=== PATIENT | female | born 1955 | race Caucasian/White ===

== ENCOUNTER → 2017-02-24 | Outpatient (CLI) | payer MEDICAID ==
[~2017-02-24] MED LIST: ACETAMINOPHEN &1 TA1 PO; ASPIRIN 325MG325 MG PO; CHEWABLE ASPIRI81 MG PO; CIPRO 500MG TA500 MG PO; CRESTOR10 MG PO; DICLOFENAC 50MG50 MG PO; DOXYCYCLINE100 M1 PO; FLAGYL 500MG.500 MG PO; FLAGYL500 MG PO; GABAPENTIN 600600 MG PO; ISOSORBIDE MONO30 MG PO; K-DUR20 MEQ PO; LASIX 20MG. TAB20 MG PO; LEVAQUIN500 MG PO; LEXAPRO 10 MG T10 MG PO; LISINOPRIL10 MG PO; MACROBID 100MG100 MG PO; MEDROL 4MG. DOSE4 MG PO; MEDROL DOSEPAK4 MG PO; METAMUCIL3.4 GM/DOS PO; METOCLOPRAMIDE10 MG PO; METOLAZONE 2.52.5 MG PO; METOPROLOL50 MG PO; NEURONTIN 100100 MG PO; NICODERM C21 MG/241 TD; NITROSTAT0.3 MG SL; OMNICEF 300 MG300 MG PO; PHENAZOPYRIDIN200 M3 PO; PHENERGAN 25MG.25 M1 PO; PREDNISONE20 MG PO; PRILOSEC20 M1 PO; Prilosec20 MG PO; RANITIDINE HCL150 MG PO; SIMVASTATIN20 MG PO; TRAMADOL 50MG T50 MG PO; TRAZODONE150 MG PO; WELLBUTRIN SR150 MG PO; XANAX 1MG TABLET1 MG PO; XANAX1 MG PO
[2017-02-24 15:50] LABS: AMPHETAMINES/METAMPHETAMINES NEGATIVE ng/mL (<1000)
== END ==
LOC: LAB 14:39
PROVIDERS: Anesthesiology
DX: Z79.899 Other long term (current) drug therapy (principal)
CPT/HCPCS: G0480

== ENCOUNTER 2017-08-16 22:08 | Observation (INO) | payer MEDICAID ==
[~2017-08-16] VITALS: Ht 165.1 cm; Wt 59.0 kg
[~2017-08-16 22:08] MED LIST changes: -DICLOFENAC 50MG50 MG PO; +OMEPRAZOLE40 MG PO; -PRILOSEC20 M1 PO; +VOLTAREN75 MG PO
[2017-08-16 22:10] VITALS: BP 157/96
--- NOTE | 2017-08-16 22:36 | Emergency Room Report ---
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 N Clinical Suspician of Infection? N Mental Status: 1 - Regular (Normal Baseline) Sepsis Risk:Low Sepsis Risk Have you (or family members/close friends) recently traveled outside the [place]? N If Yes, where/when: Have you had exposure to infectious disease within the past month? N TB? Other? Specify: Source patient, RN notes reviewed, family, old records Exam Limitations no limitations Comment wf with chest pain with known ht disease - pt with stent 2014 and has multiple risk factors and has progressive pain with act over the last few weeks Cardiac Chest Pain Chest pain indicative of cardiac Yes Timing/Duration 4-6 hours, changing over time Severity/Quality moderate, pressure Location epigastric Chest Pain Radiation no radiation Activities at Onset light activity Nitro Today/Relief 0.4 mg x 1, provided by ED, mild relief Aspirin Treatment Today 325 mg x 1, provided by ED Beta nadira treatment today no beta nadira taken Cardiac risk factors + cardiovascular disease, + family history, HTN controlled Prior Workup/Intervention stent(s) Timing/Duration this evening Severity moderate ALLERGIES Coded Allergies: No Known Allergies (05/28/16) Home Medications Active Scripts Potassium Chloride (K-Dur) 20 MEQ PO DAILY #30 TER Ref 1 Prov: 07/11/15 Reported Medications Gabapentin (Gabapentin 600MG) 600 MG PO TID DICLOFENAC SODIUM (Diclofenac 50MG) 75 MG PO BID Trazodone Hcl (Trazodone HCl) 150 MG PO QHS Nitroglycerin (Nitrostat) 0.3 MG SL [id number] PRN CHEST PAIN Metoprolol Tartrate (Metoprolol) 50 MG PO BID OMEPRAZOLE MAGNESIUM (Prilosec 20MG) 40 MG PO DAILY HYDROCODONE/ACETAMINOPHEN (Hydrocodon-Acetaminophn 10-325) 1 TAB PO QID Alprazolam (Xanax 1MG) 0.25 MG PO TID ASPIRIN (Aspirin 325MG) 325 MG PO DAILY Simvastatin 20 MG PO DAILY Isosorbide Mononitrate (Isosorbide Mononitrate ER) 30 MG PO DAILY Ranitidine Hcl (Ranitidine 150MG) 300 MG PO QHS Bupropion HCl (WELLBUTRIN SR 150MG (generic) TAB) 150 MG PO DAILY Escitalopram Oxalate (Lexapro 10MG) 10 MG PO QHS History Medical History General CAD? Yes Angina: Yes [place]: Yes Hypertension? Yes Hyperlipidemia? Yes CHF? Yes DVT? No PE? No COPD? Yes Asthma? No Anemia? No GERD? Yes Gastric ulcers? No GI Bleed? No Hernia? Yes Thyroid Problems? No Hypothyroidism? No CVA? No Seizures? No Diabetes? No Insulin Dependent: No Insulin Pump: No Home FSBS? No Renal Insuffiency? Yes End Stage Renal Disease? No UTI? Yes Stones? No BPH? No GB Disease: Yes Nephritic Syndrome? No Asplenia? No Hepatitis? No Sickle Cell Disease? No Arthritis? Yes Migraines? No Cataracts? No Glaucoma? No MRSA? No HIV? No TB? No Anxiety? Yes Depression? Yes Cancer? Yes Site: UTERINE More? Yes Additional hx: HEART MURMUR,IRREGULAR HEART BEAT Immunization Hx DT/Tetanus 5-10 Years Ago Flu Refused Pneumonia Received In Past Surgical Hx Previous Surgery?Y PARTIAL HYSTERECTOMY POLYPS REMOVED (COLON) REMOVED STOMACH LESIONS? RT KNEE ARTHROSCOPY NIESHA TRIGGER FINGER RELEAS CHOLECYSTECTOMY SCREWS & PLATE IN NECK COLONOSCOPY-W [id number] LEFT CAROTID ARTERY RIGHT CAROTID ARTERY CATH W/HEART [id number] Family History Family Hx Diabetes Yes CAD Yes Hypertension Yes Hyperlipidemia Yes Cancer Yes TB Yes Social History Smoking Hx Smoker: Current Some Day Smoker Tobacco: Yes Type Cigarettes Packs/day < 1 Pack Alcohol Alcohol: No Drugs none Review of Systems All Other Systems Reviewed and Negative Constitutional denies fever Eyes denies drainage ENT denies: ear discharge, epistaxis, throat pain. Respiratory see HPI, denies cough, shortness of breath, denies wheezing Cardiovascular see HPI, chest pain, denies palpitations, denies syncope Gastrointestinal see HPI, denies abdominal pain, denies diarrhea, nausea, denies vomiting Genitourinary denies: dysuria, frequency, hesitancy, hematuria. Musculoskeletal denies back pain, denies joint pain, denies joint swelling, denies neck pain Skin denies rash Psychiatric/Neurological denies headache, denies seizure Physical Exam Vital Signs Vital Signs Date Time Temp Pulse Resp B/P Pulse O2 O2 Flow FiO2 Ox Delivery Rate 08/160 62 20 129/79 96 3 08/16 2259 63 18 143/81 92 3 08/16 2256 20 08/160 98.1 67 20 157/96 93 - WBC >12,000 or <4,000 or 10% bands? 2 or more SIRS Criteria Met? B/P:129/79 MAP:116 Creatinine >2.0? UA output<0.5ml/kg/hr for 2 hrs? Platelet count >100,000? Lactate >2.0mmol/1? INR >1.2 or PTT > than 60 sec? Evidence of Organ Dysfunction? Provider documented clinical suspician of infection? N Sepsis Criteria Count: 1 Sepsis Risk: Low Sepsis Risk General Appearance no apparent distress Eye Exam - bilateral eye PERRL, bilateral eye EOMI Ear, Nose, Throat normal ENT inspection Neck supple Respiratory Status No: respiratory distress. Lung Sounds bilateral: lungs clear. 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 No Results/Orders Laboratory Tests 08/16/170: Sodium 141, Potassium 4.1, Chloride 105, Carbon Dioxide 32, BUN 22 H, Creatinine 0.9, Estimated Creat Clear 60, Estimated GFR (MDRD) 63, Glucose 86, Calcium 8.9, Total Bilirubin 0.3, AST 4 L, ALT 21, Alkaline Phosphatase 92, Creatine Kinase 109, CK-MB (CK-2) Rel Index 0.5, CK and CKMB Interp < 0.5, Troponin I < 0.02, Total Protein 7.5, Albumin 4.1, Globulin 3.4 H, Albumin/ Globulin Ratio 1.2, WBC 9.8, RBC 4.24, Hgb 14.2, Hct 43.9, MCV 103.5 H, RDW 13.1, Plt Count 285, MPV 8.9, Gran % 56.1, Gran # 5.5, Lymphocytes % 34.4, Monocytes % 6.6, Eosinophils % 2.2, Basophils % 0.7, Lymphocytes # 3.4, Monocytes # 0.6, Eosinophils # 0.2, Basophils # 0.1, PUBS MCHC 32.3, MCH 33.4 H Current Medication Orders Sig/Mandi Start time Last Medication Dose Route Stop Time Status Admin Nitroglycerin 1 IN ONCE ONE 08/16 2330 AC TP 08/16 2331 Nitroglycerin 0 .STK-MED ONE 08/16 231 DC .ROUTE Aspirin 325 MG ONCE ONE 08/16 2300 DC 08/16 PO 08/16 Nitroglycerin 0.4 MG ONCE ONE 08/16 2300 DC 08/16 SL 08/16 Nitroglycerin 0 .STK-MED ONE 08/16 2254 DC SL Aspirin 0 .STK-MED ONE 08/16 2253 DC .ROUTE Sodium Chloride 10 ML PRN PRN 08/16 2215 AC IV 08/17 2214 Orders Procedure Date/time Status Decision to admit 08/16 2314 Active ELECTROCARDIOGRAM REQUEST 08/16 2214 Active CHEST(2 VIEWS-NOT PORTABLE) 08/16 2214 Active IV SALINE LOCK 08/16 2214 Active COMPLETE METABOLIC PANEL 08/16 2214 Complete CBC WITH AUTO DIFF 08/16 2214 Complete CARDIAC ENZYMES 08/16 2214 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 ST/Twave chgs XRAY/CT/US XRAY/CT/US XRAY chest XR interpretation by reviewed by me Xray Results normal/NAD DEMETRI Score for N-Stemi/Angina DEMETRI N-STEMI SCORE DEMETRI N-STEMI SCORE Response Value Age of patient Less than 65 yrs 0 Number of risk factors for CAD Presence of 3 or more 1 Prior coronary artery stenosis (seen in angiography) Less than 50% 0 ST-Segment deviation on ECG (>1 min) Absent 0 Prior aspirin intake ASA intake in last 7 days 1 Severe anginal chest pain 2 or more episodes/24hr 1 Elevated cardiac markers(CK-MB or troponin) Absent 0 Total 3 Risk Stratification 3-4= Medium Risk Patients Departure Departure Time of Disposition 2316 Disposition Still a Patient Clinical Impression Primary Impression: Chest pain Qualifiers: Chest pain type: precordial pain Qualified Code: R07.2 - Precordial pain Condition STABLE Referrals Kendrick Vera MD (Family) discussed with dr toro and jerzy ED Critical Care Critical Care No at [id number]
--- NOTE | 2017-08-16 22:36 | Emergency Room Report ---
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 N Clinical Suspician of Infection? N Mental Status: 1 - Regular (Normal Baseline) Sepsis Risk:Low Sepsis Risk Have you (or family members/close friends) recently traveled outside the [place]? N If Yes, where/when: Have you had exposure to infectious disease within the past month? N TB? Other? Specify: Source patient, RN notes reviewed, family, old records Exam Limitations no limitations Comment wf with chest pain with known ht disease - pt with stent 2014 and has multiple risk factors and has progressive pain with act over the last few weeks Cardiac Chest Pain Chest pain indicative of cardiac Yes Timing/Duration 4-6 hours, changing over time Severity/Quality moderate, pressure Location epigastric Chest Pain Radiation no radiation Activities at Onset light activity Nitro Today/Relief 0.4 mg x 1, provided by ED, mild relief Aspirin Treatment Today 325 mg x 1, provided by ED Beta nadira treatment today no beta nadira taken Cardiac risk factors + cardiovascular disease, + family history, HTN controlled Prior Workup/Intervention stent(s) Timing/Duration this evening Severity moderate ALLERGIES Coded Allergies: No Known Allergies (05/28/16) Home Medications Active Scripts Potassium Chloride (K-Dur) 20 MEQ PO DAILY #30 TER Ref 1 Prov: 07/11/15 Reported Medications Gabapentin (Gabapentin 600MG) 600 MG PO TID DICLOFENAC SODIUM (Diclofenac 50MG) 75 MG PO BID Trazodone Hcl (Trazodone HCl) 150 MG PO QHS Nitroglycerin (Nitrostat) 0.3 MG SL [id number] PRN CHEST PAIN Metoprolol Tartrate (Metoprolol) 50 MG PO BID OMEPRAZOLE MAGNESIUM (Prilosec 20MG) 40 MG PO DAILY HYDROCODONE/ACETAMINOPHEN (Hydrocodon-Acetaminophn 10-325) 1 TAB PO QID Alprazolam (Xanax 1MG) 0.25 MG PO TID ASPIRIN (Aspirin 325MG) 325 MG PO DAILY Simvastatin 20 MG PO DAILY Isosorbide Mononitrate (Isosorbide Mononitrate ER) 30 MG PO DAILY Ranitidine Hcl (Ranitidine 150MG) 300 MG PO QHS Bupropion HCl (WELLBUTRIN SR 150MG (generic) TAB) 150 MG PO DAILY Escitalopram Oxalate (Lexapro 10MG) 10 MG PO QHS History Medical History General CAD? Yes Angina: Yes [place]: Yes Hypertension? Yes Hyperlipidemia? Yes CHF? Yes DVT? No PE? No COPD? Yes Asthma? No Anemia? No GERD? Yes Gastric ulcers? No GI Bleed? No Hernia? Yes Thyroid Problems? No Hypothyroidism? No CVA? No Seizures? No Diabetes? No Insulin Dependent: No Insulin Pump: No Home FSBS? No Renal Insuffiency? Yes End Stage Renal Disease? No UTI? Yes Stones? No BPH? No GB Disease: Yes Nephritic Syndrome? No Asplenia? No Hepatitis? No Sickle Cell Disease? No Arthritis? Yes Migraines? No Cataracts? No Glaucoma? No MRSA? No HIV? No TB? No Anxiety? Yes Depression? Yes Cancer? Yes Site: UTERINE More? Yes Additional hx: HEART MURMUR,IRREGULAR HEART BEAT Immunization Hx DT/Tetanus 5-10 Years Ago Flu Refused Pneumonia Received In Past Surgical Hx Previous Surgery?Y PARTIAL HYSTERECTOMY POLYPS REMOVED (COLON) REMOVED STOMACH LESIONS? RT KNEE ARTHROSCOPY NIESHA TRIGGER FINGER RELEAS CHOLECYSTECTOMY SCREWS & PLATE IN NECK COLONOSCOPY-W [id number] LEFT CAROTID ARTERY RIGHT CAROTID ARTERY CATH W/HEART [id number] Family History Family Hx Diabetes Yes CAD Yes Hypertension Yes Hyperlipidemia Yes Cancer Yes TB Yes Social History Smoking Hx Smoker: Current Some Day Smoker Tobacco: Yes Type Cigarettes Packs/day < 1 Pack Alcohol Alcohol: No Drugs none Review of Systems All Other Systems Reviewed and Negative Constitutional denies fever Eyes denies drainage ENT denies: ear discharge, epistaxis, throat pain. Respiratory see HPI, denies cough, shortness of breath, denies wheezing Cardiovascular see HPI, chest pain, denies palpitations, denies syncope Gastrointestinal see HPI, denies abdominal pain, denies diarrhea, nausea, denies vomiting Genitourinary denies: dysuria, frequency, hesitancy, hematuria. Musculoskeletal denies back pain, denies joint pain, denies joint swelling, denies neck pain Skin denies rash Psychiatric/Neurological denies headache, denies seizure Physical Exam Vital Signs Vital Signs Date Time Temp Pulse Resp B/P Pulse O2 O2 Flow FiO2 Ox Delivery Rate 08/160 62 20 129/79 96 3 08/16 2259 63 18 143/81 92 3 08/16 2256 20 08/160 98.1 67 20 157/96 93 - WBC >12,000 or <4,000 or 10% bands? 2 or more SIRS Criteria Met? B/P:129/79 MAP:116 Creatinine >2.0? UA output<0.5ml/kg/hr for 2 hrs? Platelet count >100,000? Lactate >2.0mmol/1? INR >1.2 or PTT > than 60 sec? Evidence of Organ Dysfunction? Provider documented clinical suspician of infection? N Sepsis Criteria Count: 1 Sepsis Risk: Low Sepsis Risk General Appearance no apparent distress Eye Exam - bilateral eye PERRL, bilateral eye EOMI Ear, Nose, Throat normal ENT inspection Neck supple Respiratory Status No: respiratory distress. Lung Sounds bilateral: lungs clear. 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 No Results/Orders Laboratory Tests 08/16/170: Sodium 141, Potassium 4.1, Chloride 105, Carbon Dioxide 32, BUN 22 H, Creatinine 0.9, Estimated Creat Clear 60, Estimated GFR (MDRD) 63, Glucose 86, Calcium 8.9, Total Bilirubin 0.3, AST 4 L, ALT 21, Alkaline Phosphatase 92, Creatine Kinase 109, CK-MB (CK-2) Rel Index 0.5, CK and CKMB Interp < 0.5, Troponin I < 0.02, Total Protein 7.5, Albumin 4.1, Globulin 3.4 H, Albumin/ Globulin Ratio 1.2, WBC 9.8, RBC 4.24, Hgb 14.2, Hct 43.9, MCV 103.5 H, RDW 13.1, Plt Count 285, MPV 8.9, Gran % 56.1, Gran # 5.5, Lymphocytes % 34.4, Monocytes % 6.6, Eosinophils % 2.2, Basophils % 0.7, Lymphocytes # 3.4, Monocytes # 0.6, Eosinophils # 0.2, Basophils # 0.1, PUBS MCHC 32.3, MCH 33.4 H Current Medication Orders Sig/Mandi Start time Last Medication Dose Route Stop Time Status Admin Nitroglycerin 1 IN ONCE ONE 08/16 2330 AC TP 08/16 2331 Nitroglycerin 0 .STK-MED ONE 08/16 231 DC .ROUTE Aspirin 325 MG ONCE ONE 08/16 2300 DC 08/16 PO 08/16 Nitroglycerin 0.4 MG ONCE ONE 08/16 2300 DC 08/16 SL 08/16 Nitroglycerin 0 .STK-MED ONE 08/16 2254 DC SL Aspirin 0 .STK-MED ONE 08/16 2253 DC .ROUTE Sodium Chloride 10 ML PRN PRN 08/16 2215 AC IV 08/17 2214 Orders Procedure Date/time Status Decision to admit 08/16 2314 Active ELECTROCARDIOGRAM REQUEST 08/16 2214 Active CHEST(2 VIEWS-NOT PORTABLE) 08/16 2214 Active IV SALINE LOCK 08/16 2214 Active COMPLETE METABOLIC PANEL 08/16 2214 Complete CBC WITH AUTO DIFF 08/16 2214 Complete CARDIAC ENZYMES 08/16 2214 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 ST/Twave chgs XRAY/CT/US XRAY/CT/US XRAY chest XR interpretation by reviewed by me Xray Results normal/NAD DEMETRI Score for N-Stemi/Angina DEMETRI N-STEMI SCORE DEMETRI N-STEMI SCORE Response Value Age of patient Less than 65 yrs 0 Number of risk factors for CAD Presence of 3 or more 1 Prior coronary artery stenosis (seen in angiography) Less than 50% 0 ST-Segment deviation on ECG (>1 min) Absent 0 Prior aspirin intake ASA intake in last 7 days 1 Severe anginal chest pain 2 or more episodes/24hr 1 Elevated cardiac markers(CK-MB or troponin) Absent 0 Total 3 Risk Stratification 3-4= Medium Risk Patients Departure Departure Time of Disposition 2316 Disposition Still a Patient Clinical Impression Primary Impression: Chest pain Qualifiers: Chest pain type: precordial pain Qualified Code: R07.2 - Precordial pain Condition STABLE Referrals Kendrick Vera MD (Family) discussed with dr toro and jerzy ED Critical Care Critical Care No at [id number]
[2017-08-16 22:44] LABS: HEMOGLOBIN 14.2 g/dL (12.2-16.2); LYMPH # 3.4 K/mm3 (0.7-4.5); LYMPH % 34.4 % (10-50.0)
[2017-08-16 23:03] LABS: BUN 22 mg/dL (7-18)
[2017-08-16 23:04] LABS: GFR (ESTIMATED) 63 ML/MIN (59-)
[2017-08-17] VITALS (11 sets, daily range): BP systolic 120–174; BP diastolic 66–98
[2017-08-17 07:26] LABS: HEMOGLOBIN 12.9 g/dL (12.2-16.2); LYMPH # 2.5 K/mm3 (0.7-4.5); LYMPH % 32.1 % (10-50.0)
[2017-08-17 07:41] LABS: BUN 21 mg/dL (7-18)
[2017-08-17 07:44] LABS: GFR (ESTIMATED) 72 ML/MIN (59-)
--- NOTE | 2017-08-17 07:56 | HISTORY AND PHYSICAL REPORT ---
Demographics: Admit date: 08/26/17 Chief complaint: Chest pain PRIMARY DIAGNOSIS: CHEST PAIN Allergies: Coded Allergies: No Known Allergies (05/28/16) History of present illness: History of present illness: 62-year-old white female with multiple cardiac risk factors, including heavy smoking history, hyperlipidemia and hypertension, who presented to the emergency department yesterday evening with the sudden onset of anginal type pressure pain. This was unrelieved in the emergency department by nitroglycerin she was admitted to hospital for evaluation and further cardiac diagnostic testing. This morning she thinks that she's had some improvement overnight but noted that at 20 minutes till 7 this morning she had the onset of chest pain once again. He 's had no diaphoresis or dyspnea with rest. Past medical history: Family HX Diabetes Yes CAD Yes Hypertension Yes Hyperlipidemia Yes Cancer Yes TB Yes Immunization HX DT/Tetanus 5-10 Years Ago Flu Refused Pneumonia Received In Past TB Test in last year No General CAD? Yes Angina: Yes [place]: Yes Hypertension? Yes Hyperlipidemia? Yes CHF? Yes DVT? No PE? No COPD? Yes Asthma? No Anemia? No GERD? Yes Gastric ulcers? No GI Bleed? No Hernia? Yes Thyroid Problems? No Hypothyroidism? No CVA? No Seizures? No Diabetes? No Insulin Dependent: No Insulin Pump: No Home FSBS? No Renal Insuffiency? Yes UTI? Yes Stones? No BPH? No GB Disease: Yes Nephritic Syndrome? No Asplenia? No Hepatitis? No Sickle Cell Disease? No Arthritis? Yes Migraines? No Cataracts? No Glaucoma? No MRSA? No HIV? No TB? No Anxiety? Yes Depression? Yes Cancer? Yes Site: UTERINE More? Yes Additional hx: HEART MURMUR,IRREGULAR HEART BEAT Past Surgical HX Previous Surgery?Y PARTIAL HYSTERECTOMY POLYPS REMOVED (COLON) REMOVED STOMACH LESIONS? RT KNEE ARTHROSCOPY NIESHA TRIGGER FINGER RELEAS CHOLECYSTECTOMY SCREWS & PLATE IN NECK COLONOSCOPY-W [id number] LEFT CAROTID ARTERY RIGHT CAROTID ARTERY CATH W/HEART [id number] Current home meds: Active Scripts Potassium Chloride (K-Dur) 20 MEQ PO DAILY #30 TER Ref 1 Prov: 07/11/15 Reported Medications Gabapentin (Gabapentin 600MG) 600 MG PO TID OMEPRAZOLE MAGNESIUM (Prilosec 20MG) 20 MG PO DAILY Alprazolam (Xanax 1MG) 0.25 MG PO BID DICLOFENAC SODIUM (Diclofenac 50MG) 50 MG PO BID Trazodone Hcl (Trazodone HCl) 300 MG PO QHS Nitroglycerin (Nitrostat) 0.3 MG SL [id number] PRN CHEST PAIN Metoprolol Tartrate (Metoprolol) 50 MG PO BID ASPIRIN (Aspirin 325MG) 325 MG PO DAILY Simvastatin 20 MG PO DAILY Isosorbide Mononitrate (Isosorbide Mononitrate ER) 30 MG PO DAILY Ranitidine Hcl (Ranitidine 150MG) 300 MG PO QHS Bupropion HCl (WELLBUTRIN SR 150MG (generic) TAB) 150 MG PO DAILY Escitalopram Oxalate (Lexapro 10MG) 10 MG PO QHS Social Hx: Smoking HX Tobacco Yes Type Cigarettes Packs/day < 1 PACK Alcohol Alcohol: No Hx of Drug Use Drug Use? No Patien't marital status is Patient's support system is poor Comment: Multiple stressors and family. Patient with history of opiate dependence and benzodiazepine use. This has been weaned off because of multiple risk factors for drug diversion and overuse issues. Review of systems: Constitutional malaise, weakness. Respiratory No: no symptoms reported. Cardiovascular chest pain Gastrointestinal/Abdominal No no symptoms reported Genitourinary No: no symptoms reported. Musculoskeletal No: no symptoms reported. Neurological No: see HPI. Exam: Lab data for last 24 hours: Laboratory Tests 08/17/17 0704: Sodium 143, Potassium 3.7, Chloride 108 H, Carbon Dioxide 31, BUN 21 H, Creatinine 0.8, Estimated Creat Clear 67, Estimated GFR (MDRD) 72, Glucose 97, Calcium 8.4 L, Creatine Kinase 63, CK-MB (CK-2) Rel Index 0.8, CK and CKMB Interp < 0.5, Troponin I < 0.02, WBC 7.8, RBC 3.90 L, Hgb 12.9, Hct 40.9, MCV 104.9 H, RDW 13.2, Plt Count 255, MPV 8.3, Gran % 59.2, Gran # 4.6, Lymphocytes % 32.1, Monocytes % 5.9, Eosinophils % 1.9, Basophils % 1.0, Lymphocytes # 2.5, Monocytes # 0.5, Eosinophils # 0.2, Basophils # 0.1, PUBS MCHC 31.6 L, MCH 33.1 H 08/17/17 0305: Creatine Kinase 66, CK-MB (CK-2) Rel Index 0.8, CK and CKMB Interp < 0.5, Troponin I < 0.02 08/16/172229: Triglycerides 169, Cholesterol 136, LDL Cholesterol 65.2, VLDL Cholesterol 33.8, HDL Cholesterol 37.0 L 08/16/172229: Sodium 141, Potassium 4.1, Chloride 105, Carbon Dioxide 32, BUN 22 H, Creatinine 0.9, Estimated Creat Clear 60, Estimated GFR (MDRD) 63, Glucose 86, Calcium 8.9, Total Bilirubin 0.3, AST 4 L, ALT 21, Alkaline Phosphatase 92, Creatine Kinase 109, CK-MB (CK-2) Rel Index 0.5, CK and CKMB Interp < 0.5, Troponin I < 0.02, Total Protein 7.5, Albumin 4.1, Globulin 3.4 H, Albumin/ Globulin Ratio 1.2, WBC 9.8, RBC 4.24, Hgb 14.2, Hct 43.9, MCV 103.5 H, RDW 13.1, Plt Count 285, MPV 8.9, Gran % 56.1, Gran # 5.5, Lymphocytes % 34.4, Monocytes % 6.6, Eosinophils % 2.2, Basophils % 0.7, Lymphocytes # 3.4, Monocytes # 0.6, Eosinophils # 0.2, Basophils # 0.1, PUBS MCHC 32.3, MCH 33.4 H Admission vital signs: 1ST Vital Signs Result Date Time Pulse Ox 93 08/16 2210 B/P 157/96 08/16 2210 Temp 98.1 08/16 2210 Pulse 67 08/16 2210 Resp 20 08/16 2210 O2 Flow Rate 3 08/16 2259 O2 Delivery OXYGEN 08/17 45 Exam General appearance: active, awake Eyes: anicteric Neck: non-tender, no carotid bruit Cardiovascular: no JVD, no ectopics, normal sinus rhythm, PMI normal, no murmur Respiratory: aerating well, clear to auscultation ABD: soft Extremities: normal exam, no peripheral edema, warm Skin: intact 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 Chest pain Status Chronic Plan: Agree with admission. Enzymes so far are negative. Cardiology consult for risk stratification/further studies. at [phone]
--- NOTE | 2017-08-17 08:24 | PHARMACY CLINIC NOTE ---
Patient Demographics Patient Demographics Admission date: 08/17/17 Date: 08/17/17 Time: 0824 Allergies Coded Allergies: No Known Allergies (05/28/16) HEIGHT- FT: 5 IN: 5.00 [id number] VTE General Information Labs: Laboratory Tests 08/17 08/16 0704 2230 Hematology Hgb (12.2 - 16.2 g/dL) 12.9 14.2 Hct (37.0 - 47.0 %) 40.9 43.9 Plt Count (142 - 424 K/mm3) 255 285 Disclaimer The following section includes nursing documentation that has been pulled in for pharmacy review. Patient's VTE score: 7 Patient's VTE Risk: MOD RISK Clinical trial participant? No VTE prophylaxis [id number] VTE prophylaxis ordered? Yes Type of prophylaxis/treatment: CARINA at 0824
--- NOTE | 2017-08-17 08:26 | RADIOLOGY REPORT PS360 ---
CHEST(2 VIEWS-NOT PORTABLE) HISTORY: chest pain ORDERING PHYSICIAN: Gibson Maldonado MD PATIENT AGE: 62 years COMPARISON: 11/04/2016 FINDINGS: The cardiomediastinal silhouette and pulmonary vascularity are within normal limits. There are mild atelectatic changes in the left lung base. The lungs are otherwise clear. Surgical clips are present in the paratracheal region and there is a bone plate along the lower cervical spine. Chronic changes are present in the thoracic lumbar spine. IMPRESSION: Left lower lobe atelectasis with chronic changes.
--- NOTE | 2017-08-17 10:08 | RADIOLOGY REPORT PS360 ---
CARDIAC CATHETERIZATION DATE OF CATHETERIZATION:08/17/2017 9:52 AM PROCEDURES: 1. Left heart catheterization 2. Left ventriculogram 3. Selective coronary angiogram INDICATION FOR TEST: 1. Numerous risk factors for coronary artery disease 2. Unstable angina Informed consent was obtained prior to the procedure. COMPLICATIONS: None ESTIMATED BLOOD LOSS: Less than 10 ml. TECHNIQUE: One percent lidocaine was used to anesthetize the right groin. The right femoral artery was accessed via the Seldinger technique. A 4-Upper Sorbian sheath was placed in the right femoral artery. The JL-4 and JR-4 catheter was also used to perform left heart catheterization and left ventriculography. At the end of the procedure the patient was transferred to the post-op holding area in stable condition for arterial sheath removal. ANGIOGRAPHIC RESULTS: 1. The left main artery normal 2. The left anterior descending artery has proximal 20% stenosis and mid vessel 30% nonflow limiting stenoses 3. The circumflex artery nondominant normal 4. The right coronary artery large dominant and has a long mid vessel to distal 40% stenosis 5. The KO ventriculogram reveals normal 65% 6. The left ventricular end-diastolic pressure 10 mmHg IMPRESSION: 1. Mild LAD disease and moderate dominant right disease 2. Normal ejection fraction 3. Normal left ventricular end-diastolic pressure PLAN: 1. Risk factor modification 2. Long-acting nitrates for possible endothelial dysfunction 3. LDL less than 55 4. Baby aspirin daily 5. Avoidance of tobacco products
[2017-08-17] MEDS ORDERED: VENTOLIN H0.09 MG/AC IH (13:34)
[2017-08-17] MEDS ORDERED: ACETAMINOPHEN500 M3 PO (13:35)
[2017-08-17] MEDS ORDERED: LOSARTAN POTASS25 MG PO (13:37)
--- NOTE | 2017-08-17 13:50 | DISCHARGE SUMMARY STANDARD ---
Demographics Admit date: 08/26/17 Discharge date: 08/17/17 History of present illness History of present illness 62-year-old white female with multiple cardiac risk factors, including heavy smoking history, hyperlipidemia and hypertension, who presented to the emergency department yesterday evening with the sudden onset of anginal type pressure pain. This was unrelieved in the emergency department by nitroglycerin she was admitted to hospital for evaluation and further cardiac diagnostic testing. This morning she thinks that she's had some improvement overnight but noted that at 20 minutes till 7 this morning she had the onset of chest pain once again. He 's had no diaphoresis or dyspnea with rest. Hospital Course Hospital Course: Patient was admitted, ruled out for myocardial infarction. Taken for left heart catheter because of significant risk factors and unstable angina pattern. This revealed no evidence of stent double lesions but diffuse coronary disease and possible endothelial dysfunction. She tolerated the procedure well. She'll be discharged home today on long-acting nitrates, continue aspirin therapy, strongly recommended to stop smoking. Discharge diagnoses Problem List 1. Chest pain Status Chronic Medications Medications: Discharge meds are as noted. Follow up Follow up in office in: 7 DAYS with: Angel Cote MD at 1350
[2017-08-17] MEDS ORDERED: IMDUR 30MG. TAB30 MG PO (13:51)
--- OUTSIDE RECORDS SUMMARY | 2017-08-21 23:31 | External Medical Summary Rpt | CCD ---
Author Author , JARROD Organization JARROD Address Unknown Phone [email or web address] Care Team Providers Care Process Developer Name Role Phone CAMERON ARIELLE, CAMERON Unavailable Unavailable ARIELLE ANITA LEE MD, PSC, Unavailable Unavailable ANITA LEE MD, PSC ADIS JR LA, Unavailable Unavailable ADIS JR LA ASLAM AZH, ASLAM AZH Unavailable Unavailable BEINEKE, BEINEKE Unavailable Unavailable BEINEKE FAHEEM, BEINEKE Unavailable Unavailable FAHEEM BESSON, BESSON Unavailable Unavailable BESSON ANN, BESSON Unavailable Unavailable ANN BESSON ANN, BESSON Unavailable Unavailable ANN ATWOOD, ATWOOD Unavailable Unavailable ATWOOD ALL, ATWOOD ALL Unavailable Unavailable SANTHOSH GIL, Unavailable Unavailable SANTHOSH GIL BROSTER THO, BROSTER Unavailable Unavailable THO BUX, BUX Unavailable Unavailable BUX ANJ, BUX ANJ Unavailable Unavailable Ten ALANIS MD Unavailable Unavailable PSC, Ten ALANIS MD PSC NATHANIEL LEO, NATHANIEL Unavailable Unavailable LEO [facility], Unavailable Unavailable [facility] Unavailable INC, [facility] Unavailable Unavailable ORTHOP[facility]EDIC, [facility] Unavailable [facility]available [facility], [facility] & Unavailable Unavailable DUBILIER, [facility] MIN SANDERS, Unavailable Unavailable MIN SANDERS, Unavailable Unavailable LAILA SOLO, Unavailable Unavailable LAILA FLOWERS COLEMAN T Unavailable Unavailable WYATT CHACKO Unavailable Unavailable [facility] Unavailable Unavailable ASSOCIATE, [facility]OCIATE [facility] Unavailable Unavailable LA, [facility] Unavailable Unavailable [facility], [facility] Unavailable Unavailable THE [facility], [facility] ANESTH OF [facility] COOK, COOK Unavailable Unavailable EUGENIO LA, Unavailable Unavailable EUGENIO LA EUGENIO LA, Unavailable Unavailable EUGENIO LA EUGENIO, TAO, Unavailable Unavailable EUGENIO, TAO CORINA RAIMUNDO, CORINA Unavailable Unavailable RAIMUNDO MANDUJANO MIS, MANDUJANO MIS Unavailable Unavailable ALBERT OVIDIO, ALBERT OVIDIO Unavailable Unavailable DUFF, DUFF Unavailable Unavailable [facility] [place] [place], [facility] [place] [facility] [place] [facility] FALLUJI ROM, FALLUJI Unavailable Unavailable ROM FAUGHN LUEVANO, FAUGHN Unavailable Unavailable LUEVANO ELIZABETH AUDRA, Unavailable Unavailable ELIZABETH AUDRA ELIZABETH AUDRA, Unavailable Unavailable ELIZABETH AUDRA BAEN CHR, BEAN CHR Unavailable Unavailable DENISSE HENRRY, DENISSE Unavailable Unavailable HENRRY DENISSE, SHANNAN S, Unavailable Unavailable SHANNAN MALDONADO S [facility], Unavailable Unavailable [facility] Unavailable Unavailable [facility], [facility]available Unavailable [facility], [facility] Un[facility] Un[facility], [facility] Un[facility]available [facility] P, [facility] NESSA, LUDIN, NESSA, Unavailable Unavailable [facility], Unavailable Unavailable [facility] LOZADA TRA, LOZADA TRA Unavailable Unavailable IMAM MOH, IMAM MOH Unavailable Unavailable VINCENT THOMAS, VINCENT Unavailable Unavailable THOMAS MONTANO SHANNON, MONTANO Unavailable Unavailable SHANNON MONTANO SHANNON, MONTANO Unavailable Unavailable SHANNON MEL FAUSTO, MEL Unavailable Unavailable FAUSTO SALGADO, SALGADO Unavailable Unavailable STEPHIE JOSS, STEPHIE JOSS Unavailable Unavailable [facility], [facility] Unavailable Unavailable MEDICAL G, [facility] TOSHIA THO, TOSHIA THO Unavailable Unavailable [facility] Unavailable Unavailable [facility], [facility] LATTERMANN CHR, Unavailable Unavailable LATTERMANN CHR JUSTICE ANN, Unavailable Unavailable JUSTICE ANN JUSTICE ANN, Unavailable Unavailable JUSTICE ANN VERGARA, VERGARA Unavailable Unavailable VERGARA, VERGARA Unavailable Unavailable VERGARA TU, VERGARA Unavailable Unavailable TU VERGARA TU, VERGARA Unavailable Unavailable TU [facility] Unavailable Unavailable SPECIAL[facility],, [facility], [facility] Unavailable Unavailable [facility], [facility] DOUGHERTY ALEXUS, DOUGHERTY Unavailable Unavailable ALEXUS SHAMIKA HERNANDEZ MD Unavailable Unavailable BUX MD TERRANCE, KIRA D, TERRANCE, Unavailable Unavailable KIRA Russell ADRIEL HAM, ADRIEL HAM Unavailable Unavailable ADRIEL HAM, ADRIEL HAM Unavailable Unavailable [facility] Unavailable Unavailable SERVICES, [facility] MCKEMIE JR SOLEDAD, Unavailable Unavailable MCKEMIE JR SOLEDAD MCKEMIE JR [facility], Unavailable Unavailable MCKEMIE JR SOLEDAD MCKEMIE JR, SHRUTHI Unavailable Unavailable F, MCKEMIE JR, SHRUTHI F MOOSE ROHAN, Unavailable Unavailable MOOSE ROHAN LORE MARK, LORE Unavailable Unavailable MARK LORE, HARMAN P, Unavailable Unavailable LORE, HARMAN P TEJEDA SOLEDAD, TEJEDA SOLEDAD Unavailable Unavailable O'RACHELLE CLAIRE, O'RACHELLE Unavailable Unavailable [facility] Un[facility] Unavailable Unavailable [facility], [facility] Unavailable Unavailable LAB, [facility] PETTEY JAM, PETTEY Unavailable Unavailable JAM PETTEY JAM, PETTEY Unavailable Unavailable JAM PICKLESIMER JR DARIUSZ, Unavailable Unavailable PICKLESIMER JR DARIUSZ PICKLESIMER JR DARIUSZ, Unavailable Unavailable PICKLESIMER JR DARIUSZ CHASE SUKH, CHASE Unavailable Unavailable SUKH CHOLO TOD, CHOLO TOD Unavailable Unavailable RUSCHMAN GREG, Unavailable Unavailable RUSCHMAN GREG [facility], Unavailable Unavailable [facility] LUDWIN, Unavailable Unavailable [facility] LUDWIN [facility] LUDWIN, Unavailable Unavailable [facility] SCIFRES ANG, SCIFRES Unavailable Unavailable ANG SCIFRES ANG, SCIFRES Unavailable Unavailable ANG ARMENDARIZ SOLEDAD, ARMENDARIZ Unavailable Unavailable [facility] ARMENDARIZ [facility], ARMENDARIZ Unavailable Unavailable [facility] OLIVER ADA, OLIVER ADA Unavailable Unavailable OLIVER CALLY, OLIVER CALLY Unavailable Unavailable [facility] Un[facility] Unavailable [facility], [facility] CHARIS ANAHI, CHARIS Unavailable Unavailable ANAHI CHARIS ANAHI, CHARIS Unavailable Unavailable ANAHI FRANCISCO JAVIER SYKES, Unavailable Unavailable FRANCISCO JAVIER SYKES [facility], Unavailable Unavailable [facility] Kendrick Lal MD, Unavailable Unavailable Kendrick Lal MD [facility], Unavailable Unavailable [facility] CHRIS MOURA, Unavailable Unavailable CHRIS MOURA, Unavailable Unavailable CHRIS Christianson MD, Unavailable Unavailable Monica Christianson MD [facility] # Unavailable Unavailable [id number], [facility] # [id number] KARLY CHRISTIAN, Unavailable Unavailable KARLY EUBANKS, TICO EUBANKS Unavailable Unavailable MERDAVID VALERIA, MERDAVID VALERIA Unavailable Unavailable Purpose Continuity of Care Document - 12-02-2007 through 2016 Problems Code Diagnosis DOS Provider Status M545 LOW BACK 04-27-2017 [facility] R300 DYSURIA 03-24-2017 [facility] [place] [id number] SPONDYLOSIS 03-03-2017 ANITA LEE, W/O , PSC MYELOPATH/R ADICULOPATH Y LUMB RGN 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 [id number] OTHER LONG 02-24-2017 [facility] TERM [facility] CURRENT INC DRUG THERAPY M5116 INTERVERTEB 02-06-2017 [facility] RAL DISC [facility] D/O INC W/RADICULOP ATHY LUMB RGN M5412 RADICULOPAT 01-19-2017 [facility] HY CERVICAL [facility] REGION INC M5416 RADICULOPAT 01-19-2017 [facility] HY LUMBAR [facility] REGION INC 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 01-19-2017 LILI STERLING MD, PSC SYNDROME NEC I10 ESSENTIAL 12-31-2016 [facility] PRIMARY [facility] HYPERTENSIO INC N I2510 ASHD [place] 12-31-2016 [facility] CORONARY [facility] ARTERY W/O INC ANGINA PECTORIS I739 PERIPHERAL 12-31-2016 [facility] VASCULAR [facility] DISEASE INC UNSPECIFIED M461 SACROILIITI 12-30-2016 [facility] S NOT [facility] ELSEWHERE INC CLASSIFIED I200 UNSTABLE 11-26-2016 [facility] ANGINA [facility] INC I209 ANGINA 11-26-2016 [facility] PECTORIS PHYSICIANS UNSPECIFIED GROUP 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 [facility] TRICUSPID SERV [facility] INSUFFICIEN CY I6523 OCCLUSION & 11-26-2016 [facility] STENOSIS [facility]ICAL BILATERAL IMAGING ASS CAROTID ARTERIES R0602 SHORTNESS 11-26-2016 [facility] OF BREATH [facility] INC Z955 PRESENCE OF 11-26-2016 [facility] CORONARY [facility] ANGIOPLASTY INC IMPLANT & GRAFT J449 CHRONIC 11-04-2016 [facility] OBSTRUCTIVE MEDICAL PULMONARY IMAGING ASS DISEASE UNS J9811 ATELECTASIS 11-04-2016 [facility] R05 COUGH 11-04-2016 [facility] R079 CHEST PAIN 11-04-2016 [facility] UNSPECIFIED [facility]ING ASS I129 HYPERTENSIV 11-03-[address] [facility] [address] [facility] W/STAGE 1-4 HOSPITAL P CKD OR UNS CKD N189 CHRONIC 11-03-2016 [facility] KIDNEY [facility] DISEASE INC UNSPECIFIED Z720 TOBACCO USE 11-03-2016 [facility] INC K5900 CONSTIPATIO 08-27-2016 [facility] N [facility] UNSPECIFIED INTERNAL MED N390 URINARY 08-27-2016 [facility] TRACT [facility] INFECTION INTERNAL SITE NOT MED SPECIFIED R102 PELVIC AND 08-27-2016 [facility] PERINEAL [facility] PAIN INTERNAL MED M33049 ENCOUNTER 08-27-2016 [facility] IT SOLUTIONS ARCHITECT EXAM LLC GENERAL RTN W/O ABNORMAL FIND Z124 ENCOUNTER 08-27-2016 [facility] OTHER [facility] SCREENING INTERNAL MALIG MED NEOPLASM CERVIX S52974 PERSONAL 08-27-2016 [facility] HISTORY OF VALLEY COLONIC INTERNAL POLYPS MED Z1231 ENCOUNTER 08-26-2016 [facility] SCREENING MEDICAL MAMMO MALIG IMAGING ASS NEOPLASM BREAST Z5181 ENCOUNTER 08-05-2016 [facility] THERAPEUTIC LA DRUG LEVEL MONITORING R51 HEADACHE 06-11-2016 [facility] INTERNAL MED K219 GASTRO-ESOP 05-29-2016 [facility] REFLUX [facility] DISEASE INC WITHOUT ESOPHAGITIS L723 SEBACEOUS 05-29-2016 [facility] CYST [facility] INC L729 FOLLICULAR 05-29-2016 [facility] CYST THE PHYSICIANS, SKIN & SUBQ PLLC TISSUE UNS H6123 IMPACTED 03-20-2016 [facility] CERUMEN PHYSICIANS BILATERAL GROUP H6523 CHRONIC 03-20-2016 [facility] SEROUS PHYSICIANS OTITIS GROUP MEDIA BILATERAL G8929 OTHER 03-17-2016 [facility] CHRONIC VAL[facility] PAIN INTERNAL MED R109 UNSPECIFIED 03-17-2016 [facility] ABDOMINAL [facility] PAIN INTERNAL MED G250 ESSENTIAL 01-23-2016 [facility] R202 PARESTHESIA 01-23-2016 [facility] OF SKIN NEUROLOGY K269 DUOD ULCR 11-12-2015 [facility] UNS AC SURGIAL OR CHRON ASSOCIATE W/O HEMORR OR PERF K3189 OTHER 11-12-2015 [facility] DISEASES OF SURGIAL STOMACH ASSOCIATE AND DUODENUM K319 DISEASE OF 11-12-2015 [facility] & DUODENUM DUBILIER UNSPECIFIED R0789 OTHER CHEST 11-12-2015 [facility] PA[facility] SURGIAL ASSOCIATE R1013 EPIGASTRIC 11-12-2015 [facility] R634 ABNORMAL 11-12-2015 [facility] WEIGHT LOSS SURGIAL ASSOCIATE R259 UNSPECIFIED 10-17-2015 [facility] ABNORMAL [facility] INVOLUNTARY INTERNAL MOVEMENTS MED G629 POLYNEUROPA 09-02-2015 [facility] THY [facility] UNSPECIFIED INC I130 HTN HEART & 09-02-2015 [facility] CKD W/HF & MEM HOSP CKD STAGE INC 1-4 OR UNS CKD 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 INC AND DIASTOLIC CHF M792 NEURALGIA 09-02-2015 [facility], NEURITIS PLLC UNSPECIFIED I31212 PAIN IN 09-02-2015 [place] LEFT LOWER MEDICAL LEG IMAGING ASS T45687 PAIN IN 09-02-2015 [facility] LEFT FOOT PHYSICIANS, PLLC G90355G UNSPECIFIED 09-02-2015 [place] INJURY MEDICAL LEFT FOOT IMAGING ASS INITIAL ENCOUNTER H524 PRESBYOPIA 08-09-2015 SCIFRES ANG 47327 INTESTINAL 07-20-2015 [facility] INFECTIONS VALLEY DUE INTERNAL CLOSTRIDIUM MED DIFFICILE 45576 DEHYDRATION 07-08-2015 [facility] INC 38136 CORONARY 07-08-2015 [facility] OSIS [place] INC CORONARY ARTERY 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 INTERNAL UNSPECIFIED MED 5589 OTH&UNSPEC 07-08-2015 [facility] NONINFECTIO VALLEY INTERNAL GASTROENTER MED ITIS&COLITI S 5990 URINARY 07-08-2015 [facility] TRACT [facility] INFECTION INTERNAL SITE NOT MED SPECIFIED V1089 PERSONAL 07-08-2015 [facility] HISTORY [facility] MALIGNANT INC NEOPLASM OTHER SITE V4509 OTHER 07-08-2015 [facility] SPECIFIED [facility] CARDIAC INC DEVICE IN SITU V4582 POSTSURG 07-08-2015 [facility] PERCUT [facility] TRANSLUMINA INC L COR ANGPLSTY STS 5849 ACUTE 07-07-2015 [facility], FAILURE PLLC UNSPECIFIED 49675 ABDOMINAL 07-07-2015 [place] PAIN, MEDICAL GENERALIZED IMAGING ASS 7823 EDEMA 07-02-2015 [facility] VAL[facility] INTERNAL MED 5180 PULMONARY 06-30-2015 [facility] COLLAPSE [facility]ICAL IM[facility]ING ASS 90459 SWELLING OF 06-30-2015 [facility] LIMB [facility]ICAL [facility] 5952 OTHER 06-19-2015 [facility] P 5989 UNSPECIFIED 06-19-2015 [facility] P 00305 URINARY 06-19-2015 [facility] P 69744 OTHER 06-19-2015 [facility] ABNORMALITY ANESTH OF OF THE BLUE URINATION 28295 OTHER 06-04-2015 [facility] CHRONIC VAL[facility] PAIN INTERNAL MED 4019 UNSPECIFIED 06-04-2015 [facility] ESSENTIAL VALLEY HYPERTENSIO INTERNAL N MED 84289 INSOMNIA 06-04-2015 [facility] UNSPECIFIED VALLEY INTERNAL MED 496 CHRONIC 05-29-[address] [facility] [address] [facility] OBSTRUCTION INTERNAL NEC MED 5609 UNSPECIFIED 05-29-2015 [facility] INTESTINAL VAL[facility] INTERNAL OBSTRUCTION MED 24514 DEGEN 2015 SHAMIKA LEE LUMBAR/LUMB OSACRAL INTERVERTEB RAL DISC 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 2015 SHAMIKA TERRY MD NEURITIS/RA DICULITIS UNSPEC 7873 FLATULENCE 2015 [place] ERUCTATION MEDICAL AND GAS IMAGING ASS PAIN 39037 ABDOMINAL 2015 [place] PAIN, MEDICAL UNSPECIFIED IMAGING ASS SITE 4168 OTHER 05-15-[address] [facility] CHRONIC HEALTH PULMONARY MEDICAL G HEART DISEASES 4240 MITRAL 05-15-[address] [facility] VALVE HEALTH DISORDERS MEDICAL G 4242 TRICUSPID 05-15-[address] [facility] VALVE HEALTH DISORDERS MEDICAL G SPEC NONRHEUMATI C 78072 CHEST PAIN 05-15-2015 [facility] 67047 OTHER CHEST 05-02-[address] [facility] PAIN HEALTH MEDICAL G V7281 PRE-OPERATI 05-02-[address] [facility] VE HEALTH CARDIOVASCU MEDICAL G LAR EXAMINATION 7936 NONSPEC ABN 04-25-2015 [facility] FINDNG RAD PHYSICIANS & OTH EXAM GROUP ABDOMINAL AREA 30144 OTHER 04-25-2015 [facility] ABNORMAL PHYSICIANS FINDING GROUP RADIOLOGICA L EXAM BREAST 5768 OTHER 04-10-2015 [place] SPECIFIED MEDICAL DISORDERS IMAGING ASS OF BILIARY TRACT 7242 LUMBAGO 03-29-2015 [facility] [place] [facility] 7906 OTHER 03-28-2015 [facility] ABNORMAL [facility] BLOOD INC CHEMISTRY 7881 DYSURIA 02-15-2015 [facility] 69722 ABDOMINAL 02-15-2015 [place] PAIN OTHER MEDICAL SPECIFIED IMAGING ASS SITE 7245 UNSPECIFIED 02-07-2015 [facility] BACKACHE [facility] INC V571 OTHER 02-07-2015 [facility] PHYSICAL [facility] THERAPY INC 96587 UNSPECIFIED 02-06-2015 [facility] RETENTION [facility] P 3384 CHRONIC 11-20-2014 [facility] PAIN VALLEY SYNDROME INTERNAL MED 39760 OSTEOARTHRO 11-20-2014 [facility] S UNSPEC VALLEY WHETHER INTERNAL GEN/LOC MED UNSPEC SITE 7213 LUMBOSACRAL 11-20-2014 [facility]ICAL SPONDYLOSIS IMAGING ASS WITHOUT MYELOPATHY V7612 OTHER 11-20-2014 [place] SCREENING MEDICAL MAMMOGRAM IMAGING ASS 3831 CHRONIC 09-21-2014 JAI TU MASTOIDITIS 4760 CHRONIC 08-28-2014 [facility] LARYNGITIS 36283 ESOPHAGEAL 08-28-2014 [facility] REFLUX 4408 ATHEROSCLER 08-11-2014 [facility] OSIS OF VALLEY OTHER INTERNAL SPECIFIED MED ARTERIES 12216 ABDOMINAL 08-11-2014 [facility] PAIN, VALLEY EPIGASTRIC INTERNAL MED 41485 HYPOXEMIA 07-30-2014 [facility] MEDICAL 58022 OCCLUSION&S 06-27-2014 WYATT DINERO CAROTID ART W/O MENTION INFARCT 23772 DIAB W/O 06-26-2014 [facility] COMP TYPE YUR II/UNS NOT STATED UNCNTRL 54270 ELEVATED 06-26-2014 CHRIS CARCINOEMBR YUR YONIC ANTIGEN 486 PNEUMONIA, 06-25-2014 MONTANO SHANNON ORGANISM UNSPECIFIED V7282 PRE-OPERATI 06-25-2014 MONTANO SHANNON VE RESPIRATORY EXAMINATION 4111 INTERMEDIAT 06-21-2014 [facility] E CORONARY HE[facility] SYNDROME SPECIALISTS , 85652 OSTEOARTHRO 06-12-2014 CHARIS ANAHI SIS UNSPEC WHETHER GEN/LOC LOWER LEG 84262 OSTEOARTHRO 06-12-2014 [place] [facility] SIS UNSPEC SERV WHETHER FOUNDATION GEN/LOC ANK&FOOT 95982 PAIN IN 06-12-2014 CHARIS ANAHI JOINT, LOWER LEG 38758 PAIN IN 05-10-2014 JUSTICE JOINT, ANN ANKLE AND FOOT 8248 UNSPECIFIED 05-10-2014 [facility] FRACTURE OF ANKLE 7177 CHONDROMALA 03-30-2014 PETTEY JAM CHAIM OF [place] 52659 PES 03-30-2014 PETTEY JAM ANSERINUS TENDINITIS OR BURSITIS 56355 OTHER 03-30-2014 PETTE[place] [address] 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 ADRIEL HAM LILI SYNDROME CERVICAL REGION 7234 BRACHIAL 03-23-2014 ADRIEL HAM NEURITIS OR RADICULITIS NOS 7226 DEGENERATIO 12-19-2013 ELIZABETH N AUDRA INTERVERTEB RAL DISC SITE UNSPEC 7292 UNSPECIFIED 12-19-2013 ELIZABETH NEURALGIA AUDRA NEURITIS AND RADICULITIS 30940 OTHER 10-31-2013 EUGENIO SPECIFIED [place] DISORDERS OF BREAST 2724 OTHER AND 10-12-2013 ELIZABETH UNSPECIFIED AUDRA HYPERLIPIDE LIN V7231 ROUTINE 10-12-2013 [facility] JR DARIUSZ AL EXAMINATION 37901 OCCL&STENOS 05-09-2013 EUGENIO MX&BILAT LA PRECERBRL ART W/O INFARCT 7295 PAIN IN 02-25-2013 BARB WALDR[facility] SOFT SOLEDAD TISSUES OF LIMB 5781 BLOOD IN 12-16-2012 [facility] STOOL [facility] INC 78507 DIVERTICULO 12-14-2012 BESSON ANN SIS OF COLON 0091 COLITIS 12-13-2012 [facility] ENTERIT&GAS LUDWIN TROENTERIT INF ORIGIN 2662 OTHER 10-25-2012 BARB WALDRON B-COMPLEX SOLEDAD DEFICIENCIE S 95034 ABDOMINAL 2012 [facility] PAIN RIGHT [facility] UPPER INC QUADRANT V8801 ACQUIRED 04-22-2012 [place] ABSENCE OF MEDICAL BOTH CERVIX IMAGING ASS AND UTERUS 8470 NECK SPRAIN 09-04-2011 [facility] AND STRAIN [facility]OS[facility] INC 2113 BENIGN 06-10-2011 C [facility] NEOPLASM OF ANNABELLE COLON PSC V7651 SPECIAL 05-29-2011 [facility] SCREENING [facility] HOS[facility] FOR INC MALIGNANT NEOPLASMS COLON 90921 UNSPECIFIED 05-22-2011 C TYLER ANNABELLE CONSTIPATIO PSC N 5693 HEMORRHAGE 05-22-2011 C TYLER OF RECTUM ANNABELLE AND ANUS PSC 5283 CELLULITIS 04-11-2011 [facility] AND ABSCESS VALLEY OF ORAL INTERNAL SOFT MED TISSUES 28171 OTHER ACUTE 10-11-2010 [facility] POSTOPERATI SERVICES VE PAIN 7820 DISTURBANCE 10-11-2010 [facility] OF SKIN EMERGENCY SENSATION SERVICES 25395 OTHER 10-11-2010 [facility] SPECIFIED [facility] COMPLICATIO INC NS NEC V5869 LONG-TERM 09-04-2010 [facility] (CURRENT) GNOSTICISM USE OF HOSP OTHER MEDICATIONS 4928 OTHER 08-12-2010 [facility] EMPHYSEMA [facility] INTERNAL MED 7862 COUGH 08-11-2010 [facility] 14334 OTHER 08-10-2010 [facility] DISEASES OF EMERGENCY NASAL SERVICES CAVITY AND SINUSES 7291 UNSPECIFIED 08-10-2010 [facility] MYALGIA [facility]Y AND SERVICES MYOSITIS 49429 FEVER 08-10-2010 [facility] UNSPECIFIED [facility]GENCY SERVICES 490 BRONCHITIS 07-31-2010 [facility] NOT VALLEY SPECIFIED INTERNAL ACUTE OR MED CHRONIC 4919 UNSPECIFIED 01-30-2010 [facility] CHRONIC [facility] BRONCHITIS INC 4660 ACUTE 12-18-2009 [facility] BRONCHITIS [facility] INC 7859 OTHER 12-18-2009 [facility] SYMPTOMS MEDICAL INVOLVING IMAGING CARDIOVASCU ASSOCIATES LAR SYSTEM 4619 ACUTE 08-25-2009 [facility] SINUSITIS, VALLEY UNSPECIFIED INTERNAL MED 72995 PRIMARY 04-16-2009 [place] [facility] LOCALIZED SERV OSTEOARTHRO FOUNDATIO SIS LOWER LEG 6929 CONTACT 11-22-2008 [facility] DERMATITIS& VALLEY OTHER INTERNAL ECZEMA DUE MED UNSPEC CAUSE 79065 OTHER 09-25-2008 [facility] ANXIETY [facility] INTERNAL MED 4279 UNSPECIFIED 09-25-2008 [facility] CARDIAC VAL[facility] DYSRHYTHMIA INTERNAL MED 07737 ABDOMINAL 09-06-2008 [place] [facility] PA[facility], SERV PERIUMBILIC FOUNDATIO 06968 ACUTE 07-02-2008 [facility] GASTRITIS [facility] WITHOUT INC MENTION OF HEMORRHAGE 14792 UNSPECIFIED 05-10-2008 [place] [facility] SERV ESOPHAGITIS FOUNDATIO 03702 ATROPHIC 05-10-2008 PATHOLOGY & GASTRITIS CYTOLOGY WITHOUT LAB MENTION OF HEMORRHAGE 18399 UNS 05-10-2008 [place] [facility] GASTRITIS&G SERV ASTRODUODIT FOUNDATIO IS W/O MENTION HEMORR 96949 DUODENITIS 05-10-2008 PATHOLOGY & WITHOUT CYTOLOGY MENTION OF LAB HEMORRHAGE 91187 EFFUSION OF 03-28-2008 TAO C LOWER LEG EUGENIO JOINT 2409 GOITER, 03-17-2008 [place] UNSPECIFIED [facility] IMAGING ASSOC[facility]ATES 2410 NONTOXIC 03-17-2008 [facility] UNINODULAR [facility]P GOITER INC 53101 DYSPHAGIA 03-17-2008 [facility] DUE TO MEM HOSP CEREBROVASC INC ULAR DISEASE 7179 UNSPECIFIED 03-14-2008 [facility] INTERNAL [facility] DERANGEMENT INC OF KNEE 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 V762 SCREENING 03-09-2008 [facility] [place] INC MALIGNANT NEOPLASM OF THE CERVIX 7224 DEGENERATIO 02-14-2008 [facility] N OF VALLEY CERVICAL INTERNAL INTERVERTEB MED RAL DISC 42829 SPASM OF 02-14-2008 [facility] MUSCLE COLOMA INTERNAL MED 462 ACUTE 01-18-2008 [facility] PHARYNGITIS [facility] INC 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 INC 460 ACUTE 01-13-2008 [facility] NASOPHARYNG VALLEY ITIS INTERNAL MED [id number] Chest pain [facility] [id number] Active [facility] 558.9 Colitis [facility] [id number] Chronic [facility] Allergies, Adverse Reactions, Alerts Type Allergy to substance Drug Allergy Adverse Reaction to Substance Substance Reaction Severity PPD Unknown Intermediate NO KNOWN DRUG Unknown Unknown ALLERGIES Clinical Alert Notifications Alert Asthma: absence of controller with h/o SA beta agonist Asthma: no influenza vaccine in the last 365 days Medications Na ND Rx Da Fi Fi Am Da Di Ph RX Ph St me C No te ll ll ou ys ag ar # ys at rm s nt no ma ic us Or Da si cy ia de te s n re d TR 50 09 09 60 30 00 EA Ac AZ 11 -0 -[address] ti OD 10 6- 9- 00 00 SI ve ON 44 20 20 49 DE E 10 17 17 25 15 1 21 PH 0 AR MG MA CY TA BL OF ET CY NT HI AN A IN C ME 65 08 09 60 30 00 EA Ac TO 86 -2 -[address] ti RI 20 1- 5- 00 00 SI ve OL 06 20 20 49 DE OL 39 17 17 86 9 55 PH TA AR RT MA RA CY TE OF 50 CY NT MG HI AN TA A B IN C PO 51 08 09 52 30 00 EA Ac LY 99 -2 -[address] ti ET 10 1- 5- 00 00 SI ve HY 45 20 20 0 49 DE LE 75 17 17 86 NE 7 57 PH AR GL MA YC CY OL OF 33 CY 50 NT HI PO AN WD A IN C RA 68 08 09 30 30 00 EA Ac NI 46 -2 -[address] ti TI 20 1- 5- 00 00 SI ve DI 24 20 20 49 DE NE 92 17 17 86 0 56 PH 30 AR 0 MA MG CY TA OF BL CY ET NT HI AN A IN C OM 62 08 09 30 30 00 EA Ac EP 17 -2 -[address] ti RA 50 1- 5- 00 00 SI ve ZO 13 20 20 49 DE LE 64 17 [address] AR MA 40 CY MG OF CY CA NT PS HI UL AN E A IN C IS 13 08 09 30 30 00 EA Ac OS 66 -2 -[address] ti OR 80 1- 5- 00 00 SI ve BI 10 20 20 49 DE DE 40 17 17 51 1 45 PH MN AR MA ER CY 30 OF CY MG NT HI TA AN BL A ET IN C SI 16 08 09 30 30 00 EA Ac MV 71 -2 -[address] ti 40 1- 5- 00 00 SI ve TA 68 20 20 49 DE TI 30 17 17 17 N 3 17 PH 20 AR MA MG CY TA OF BL CY ET NT HI AN A IN C ES 65 08 09 30 30 00 EA Ac CI 86 -2 -[address] ti TA 20 1- 5- 00 00 SI ve LO 37 20 20 49 DE RI 40 17 17 17 AM 1 16 PH AR 10 MA CY MG OF TA CY BL NT ET HI AN A IN C BU 10 08 30 30 00 EA Ac RI 37 -2 -[address] ti OP 00 1- 5- 00 00 SI ve IO 10 20 20 49 DE N 10 17 17 51 HC 3 46 PH L AR XL MA CY 15 0 OF MG CY NT TA HI BL AN ET A IN C GA 16 08 09 12 30 00 EA Ac BA 71 -1 -[address] ti PE 40 6- 8- 00 00 SI ve NT 33 20 20 0 49 DE IN 00 17 17 81 2 51 PH 60 AR 0 MA MG CY TA OF BL CY ET NT HI AN A IN C TR 50 08 09 60 30 00 EA Ac AZ 11 -0 -[address] ti OD 10 9- 1- 00 00 SI ve ON 44 20 20 49 DE E 10 17 17 25 15 1 21 PH 0 AR MG MA CY TA BL OF ET CY NT HI AN A IN C DI 00 08 09 60 30 00 EA Ac CL 22 -0 -[address] ti OF 82 9- 1- 00 00 SI ve EN 55 20 20 49 DE AC 19 17 17 31 6 49 PH SO AR D MA EC CY 75 OF CY MG NT HI TA AN B A IN C PO 00 08 09 30 30 00 EA Ac TA 78 -0 -[address] ti SS 15 9- 1- 00 00 SI ve IU 72 20 20 48 DE M 01 17 17 61 CL 0 82 PH AR ER MA CY 20 OF ME CY Q NT TA HI BL AN ET A IN C IS 13 07 08 30 30 00 EA Ac OS 66 -2 -[address] ti OR 80 0- 8- 00 00 SI ve BI 10 20 20 49 DE DE 40 17 17 51 1 45 PH MN AR MA ER CY 30 OF CY MG NT HI TA AN BL A ET IN C BU 10 07 08 30 30 00 EA Ac RI 37 -2 -[address] ti OP 00 0- 8- 00 00 SI ve IO 10 20 20 49 DE N 10 17 17 51 HC 3 46 PH L AR XL MA CY 15 0 OF MG CY NT TA HI BL AN ET A IN C ME 65 07 08 60 30 00 EA Ac TO 86 -2 -[address] ti RI 20 0- 8- 00 00 SI ve OL 06 20 20 48 DE OL 39 17 17 83 9 28 PH TA AR RT MA RA CY TE OF 50 CY NT MG HI AN TA A B IN C RA 68 07 08 30 30 00 EA Ac NI 46 -2 -[address] ti TI 20 0- 8- 00 00 SI ve DI 24 20 20 47 DE NE 92 17 17 66 0 10 PH 30 AR 0 MA MG CY TA OF BL CY ET NT HI AN A IN C ES 65 07 08 30 30 00 EA Ac CI 86 -2 -[address] ti TA 20 0- 8- 00 00 SI ve LO 37 20 20 49 DE RI 40 17 17 17 AM 1 16 PH AR 10 MA CY MG OF TA CY BL NT ET HI AN A IN C OM 62 07 08 30 30 00 EA Ac EP 17 -2 -[address] ti RA 50 0- 8- 00 00 SI ve ZO 13 20 20 48 DE LE 64 17 17 [address] AR MA 40 CY MG OF CY CA NT PS HI UL AN E A IN C SI 16 07 08 30 30 00 EA Ac MV 71 -2 -[address] ti 40 0- 8- 00 00 SI ve TA 68 20 20 49 DE TI 30 17 17 17 N 3 17 PH 20 AR MA MG CY TA OF BL CY ET NT HI AN A IN C GA 16 07 08 12 30 00 EA Ac BA 71 -1 -[address] ti PE 40 6- 1- 00 00 SI ve NT 33 20 20 0 49 DE IN 00 17 17 45 2 79 PH 60 AR 0 MA MG CY TA OF BL CY ET NT HI AN A IN C PO 00 07 08 30 30 00 EA Ac TA 78 -1 -[address] ti SS 15 0- 4- 00 00 SI ve IU 72 20 20 48 DE M 01 17 17 61 CL 0 82 PH AR ER MA CY 20 OF ME CY Q NT TA HI BL AN ET A IN C TR 50 07 08 60 30 00 EA Ac AZ 11 -1 -[address] ti OD 10 0- 4- 00 00 SI ve ON 44 20 20 49 DE E 10 17 17 25 15 1 21 PH 0 AR MG MA CY TA BL OF ET CY NT HI AN A IN C DI 00 06 07 60 30 00 EA Ac CL 22 -3 -[address] ti OF 82 0- 8- 00 00 SI ve EN 55 20 20 49 DE AC 19 17 17 31 6 49 PH SO AR D MA EC CY 75 OF CY MG NT HI TA AN B A IN C GA 16 06 07 12 30 00 EA Ac BA 71 -1 -[address] ti PE 40 6- 4- 00 00 SI ve NT 33 20 20 0 49 DE IN 00 17 17 15 2 47 PH 60 AR 0 MA MG CY TA OF BL CY ET NT HI AN A IN C ES 65 06 07 30 30 00 EA Ac CI 86 -1 -[address] ti TA 20 9- 4- 00 00 SI ve LO 37 20 20 49 DE RI 40 17 17 17 AM 1 16 PH AR 10 MA CY MG OF TA CY BL NT ET HI AN A IN C SI 16 06 07 30 30 00 EA Ac MV 71 -1 -[address] ti 40 9- 4- 00 00 SI ve TA 68 20 20 49 DE TI 30 17 17 17 N 3 17 PH 20 AR MA MG CY TA OF BL CY ET NT HI AN A IN C ME 65 06 07 60 30 00 EA Ac TO 86 -1 -[address] ti RI 20 9- 4- 00 00 SI ve OL 06 20 20 48 DE OL 39 17 17 83 9 28 PH TA AR RT MA RA CY TE OF 50 CY NT MG HI AN TA A B IN C RA 68 06 07 30 30 00 EA Ac NI 46 -1 -[address] ti TI 20 9- 4- 00 00 SI ve DI 24 20 20 47 DE NE 92 17 17 66 0 10 PH 30 AR 0 MA MG CY TA OF BL CY ET NT HI AN A IN C OM 62 06 07 30 30 00 EA Ac EP 17 -1 -[address] ti RA 50 9- 4- 00 00 SI ve ZO 13 20 20 48 DE LE 64 17 17 [address] AR MA 40 CY MG OF CY CA NT PS HI UL AN E A IN C BU 10 06 07 30 30 00 EA Ac RI 37 -1 -[address] ti OP 00 9- 4- 00 00 SI ve IO 10 20 20 48 DE N 10 17 17 83 HC 3 29 PH L AR XL MA CY 15 0 OF MG CY NT TA HI BL AN ET A IN C TR 50 06 07 30 30 00 EA Ac AZ 11 -1 -[address] ti OD 10 9- 4- 00 00 SI ve ON 44 20 20 48 DE E 10 17 17 12 15 1 44 PH 0 AR MG MA CY TA BL OF ET CY NT HI AN A IN C IS 13 06 07 30 30 00 EA Ac OS 66 -1 -[address] ti OR 80 9- 4- 00 00 SI ve BI 10 20 20 47 DE DE 40 17 17 21 1 21 PH MN AR MA ER CY 30 OF CY MG NT HI TA AN BL A ET IN C PO 51 06 07 52 30 00 EA Ac LY 99 -1 -[address] ti ET 10 1- 7- 00 00 SI ve HY 45 20 20 0 46 DE LE 75 17 17 23 NE 7 50 PH AR GL MA YC CY OL OF 33 CY 50 NT HI PO AN WD A IN C PO 00 06 07 30 30 00 EA Ac TA 78 -1 -[address] ti SS 15 1- 7- 00 00 SI ve IU 72 20 20 48 DE M 01 17 17 61 CL 0 82 PH AR ER MA CY 20 OF ME CY Q NT TA HI BL AN ET A IN C RA 68 05 06 30 30 00 EA Ac NI 46 -2 -[address] ti TI 20 0- 3- 00 00 SI ve DI 24 20 20 47 DE NE 92 17 17 66 0 10 PH 30 AR 0 MA MG CY TA OF BL CY ET NT HI AN A IN C DI 00 05 06 60 30 00 EA Ac CL 22 -2 -[address] ti OF 82 0- 3- 00 00 SI ve EN 55 20 20 48 DE AC 19 17 17 01 6 07 PH SO AR D MA EC CY 75 OF CY MG NT HI TA AN B A IN C SI 16 05 06 30 30 00 EA Ac MV 71 -2 -[address] ti 40 0- 3- 00 00 SI ve TA 68 20 20 46 DE TI 30 17 17 93 N 3 45 PH 20 AR MA MG CY TA OF BL CY ET NT HI AN A IN C OM 62 05 06 30 30 00 EA Ac EP 17 -2 -[address] ti RA 50 0- 3- 00 00 SI ve ZO 13 20 20 48 DE LE 64 17 17 [address] AR MA 40 CY MG OF CY CA NT PS HI UL AN E A IN C ES 65 05 06 30 30 00 EA Ac CI 86 -2 -[address] ti TA 20 0- 3- 00 00 SI ve LO 37 20 20 48 DE RI 40 17 17 37 AM 1 26 PH AR 10 MA CY MG OF TA CY BL NT ET HI AN A IN C IS 13 05 06 30 30 00 EA Ac OS 66 -2 -[address] ti OR 80 0- 3- 00 00 SI ve BI 10 20 20 47 DE DE 40 17 17 21 1 21 PH MN AR MA ER CY 30 OF CY MG NT HI TA AN BL A ET IN C ME 65 05 06 60 30 00 EA Ac TO 86 -2 -[address] ti RI 20 1- 3- 00 00 SI ve OL 06 20 20 48 DE OL 39 17 17 83 9 28 PH TA AR RT MA RA CY TE OF 50 CY NT MG HI AN TA A B IN C BU 10 05 06 30 30 00 EA Ac RI 37 -2 -[address] ti OP 00 1- 3- 00 00 SI ve IO 10 20 20 48 DE N 10 17 17 83 HC 3 29 PH L AR XL MA CY 15 0 OF MG CY NT TA HI BL AN ET A IN C TR 50 05 06 30 30 00 EA Ac AZ 11 -2 -[address] ti OD 10 3- 3- 00 00 SI ve ON 44 20 20 48 DE E 10 17 17 12 15 1 44 PH 0 AR MG MA CY TA BL OF ET CY NT HI AN A IN C GA 16 05 06 12 30 00 EA Ac BA 71 -1 -[address] ti PE 40 5- 9- 00 00 SI ve NT 33 20 20 0 48 DE IN 00 17 17 76 1 61 PH 60 AR 0 MA MG CY TA OF BL CY ET NT HI AN A IN C NI 16 05 06 20 10 00 EA Ac TR 71 -1 -[address] ti OF 40 5- 9- 00 00 SI ve UR 43 20 20 48 DE AN 90 17 17 76 TO 1 60 PH IN AR MA MO CY NO -M OF CR CY NT 10 HI 0 AN MG A IN C PO 00 05 06 30 30 00 EA Ac TA 78 -0 -[address] ti SS 15 4- 2- 00 00 SI ve IU 72 20 20 48 DE M 01 17 17 61 CL 0 82 PH AR ER MA CY 20 OF ME CY Q NT TA HI BL AN ET A IN C TR 50 04 05 30 30 00 EA Ac AZ 11 -2 -[address] ti OD 10 5- 9- 00 00 SI ve ON 44 20 20 48 DE E 10 17 17 12 15 1 44 PH 0 AR MG MA CY TA BL OF ET CY NT HI AN A IN C GA 16 04 05 90 30 00 EA Ac BA 71 -2 -[address] ti PE 40 5- 9- 00 00 SI ve NT 33 20 20 47 DE IN 00 17 17 28 2 68 PH 60 AR 0 MA MG CY TA OF BL CY ET NT HI AN A IN C DI 00 04 05 60 30 00 EA Ac CL 22 -1 -[address] ti OF 82 8- 2- 00 SI ve EN 55 20 20 48 DE AC 19 17 17 01 6 07 PH SO AR D MA EC CY 75 OF CY MG NT HI TA AN B A IN C ME 65 04 05 60 30 00 EA Ac TO 86 -1 -[address] ti RI 20 8- 2- 00 00 SI ve OL 06 20 20 47 DE OL 39 17 17 28 9 69 PH TA AR RT MA RA CY TE OF 50 CY NT MG HI AN TA A B IN C BU 10 04 05 30 30 00 EA Ac RI 37 -1 -[address] ti OP 00 8- 2- 00 00 SI ve IO 10 20 20 47 DE N 10 17 17 57 HC 3 33 PH L AR XL MA CY 15 0 OF MG CY NT TA HI BL AN ET A IN C IS 13 04 05 30 30 00 EA Ac OS 66 -1 -[address] ti OR 80 8- 2- 00 00 SI ve BI 10 20 20 47 DE DE 40 17 17 21 1 21 PH MN AR MA ER CY 30 OF CY MG NT HI TA AN BL A ET IN C RA 68 04 05 30 30 00 EA Ac NI 46 -1 -[address] ti TI 20 8- 2- 00 00 SI ve DI 24 20 20 47 DE NE 92 17 17 66 0 10 PH 30 AR 0 MA MG CY TA OF BL CY ET NT HI AN A IN C OM 62 04 05 30 30 00 EA Ac EP 17 -1 -[address] ti RA 50 8- 2- 00 00 SI ve ZO 13 20 20 48 DE LE 64 17 17 [address] AR MA 40 CY MG OF CY CA NT PS HI UL AN E A IN C SI 16 04 05 30 30 00 EA Ac MV 71 -1 -[address] ti 40 9- 2- 00 00 SI ve TA 68 20 20 46 DE TI 30 17 17 93 N 3 45 PH 20 AR MA MG CY TA OF BL CY ET NT HI AN A IN C HY 00 04 05 [address] 40 -1 -[address] ti OC 60 8- 2- 00 00 SI ve OD 12 20 20 0 48 DE ON 50 17 17 40 -A 5 73 PH CE AR TA MA VT CY NO PH OF N CY 10 NT -3 HI 25 AN A IN C ES 65 04 05 30 30 00 EA Ac CI 86 -1 -[address] ti TA 20 4- 2- 00 00 SI ve LO 37 20 20 48 DE RI 40 17 17 37 AM 1 26 PH AR 10 MA CY MG OF TA CY BL NT ET HI AN A IN C VE 00 04 05 18 30 00 EA Ac NT 17 -0 -[address] ti OL 30 8- 5- 00 00 SI ve IN 68 20 20 46 DE 22 17 17 93 HF 0 46 PH A AR 90 MA CY MC G OF IN CY TORRES NT LE HI R AN A IN C PO 51 04 05 52 30 00 EA Ac LY 99 -1 -[address] ti ET 10 2- 5- 00 00 SI ve HY 45 20 20 0 46 DE LE 75 17 17 23 NE 7 50 PH AR GL MA YC CY OL OF 33 CY 50 NT HI PO AN WD A IN C GA 16 03 04 90 30 00 EA Ac BA 71 -2 -[address] ti PE 40 7- 1- 00 00 SI ve NT 33 20 20 47 DE IN 00 17 17 28 2 68 PH 60 AR 0 MA MG CY TA OF BL CY ET NT HI AN A IN C TR 50 03 04 30 30 00 EA Ac AZ 11 -2 -[address] ti OD 10 7- 1- 00 00 SI ve ON 44 20 20 48 DE E 10 17 17 12 15 1 44 PH 0 AR MG MA CY TA BL OF ET CY NT HI AN A IN C SI 16 03 04 30 30 00 EA Ac MV 71 -1 -[address] ti 40 7- 4 00 00 SI ve TA 68 20 20 46 DE TI 30 17 17 93 N 3 45 PH 20 AR MA MG CY TA OF BL CY ET NT HI AN A IN C OM 62 03 04 30 30 00 EA Ac EP 17 -1 -[address] ti RA 50 7- 4- 00 00 SI ve ZO 13 20 20 46 DE LE 64 17 17 [address] AR MA 40 CY MG OF CY CA NT PS HI UL AN E A IN C RA 68 03 04 30 30 00 EA Ac NI 46 -1 -[address] ti TI 20 7- 4 00 SI ve DI 24 20 20 47 DE NE 92 17 17 66 0 10 PH 30 AR 0 MA MG CY TA OF BL CY ET NT HI AN A IN C ME 65 03 04 60 30 00 EA Ac TO 86 -1 -[address] ti RI 20 7- 4- 00 SI ve OL 06 20 20 47 DE OL 39 17 17 28 9 69 PH TA AR RT MA RA CY TE OF 50 CY NT MG HI AN TA A B IN C IS 13 03 04 30 30 00 EA Ac OS 66 -1 -[address] ti OR 80 7- 00 SI ve BI 10 20 20 47 DE DE 40 17 17 21 1 21 PH MN AR MA ER CY 30 OF CY MG NT HI TA AN BL A ET IN C PO 00 03 04 30 30 00 EA Ac TA 78 -1 -[address] ti SS 15 7- 4 00 SI ve IU 72 20 20 46 DE M 00 17 17 58 CL 5 32 PH AR ER MA CY 20 OF ME CY Q NT TA HI BL AN ET A IN C BU 10 03 04 30 30 00 EA Ac RI 37 -1 -[address] ti OP 00 7- 4 00 SI ve IO 10 20 20 47 DE N 10 17 17 57 HC 3 33 PH L AR XL MA CY 15 0 OF MG CY NT TA HI BL AN ET A IN C DI 00 03 04 60 30 00 EA Ac CL 22 -1 -[address] ti OF 82 7- 4- 00 SI ve EN 55 20 20 48 DE AC 19 17 17 01 6 07 PH SO AR D MA EC CY 75 OF CY MG NT HI TA AN B A IN C HY 00 03 04 [address] 40 -1 -[address] ti OC 60 9- 4- 00 00 SI ve OD 12 20 20 0 48 DE ON 40 17 17 02 -A 5 80 PH CE AR TA MA VT CY NO PH OF CY 7. NT 5- HI 32 AN 5 A IN C TI 60 03 04 90 30 00 EA Ac ZA 50 -1 -[address] ti NI 50 3- 7- 00 00 SI ve DI 25 20 20 47 DE NE 20 17 17 95 2 00 PH HC AR L MA 4 CY MG OF TA CY BL NT ET HI AN A IN C TR 50 02 03 30 30 00 EA Ac AZ 11 -2 -[address] ti OD 10 6- 4- 00 00 SI ve ON 44 20 20 46 DE E 10 17 17 66 15 1 99 PH 0 AR MG MA CY TA BL OF ET CY NT HI AN A IN C RA 68 02 03 30 30 00 EA Ac NI 46 -1 -[address] ti TI 20 7- 7- 00 00 SI ve DI 24 20 20 47 DE NE 92 17 17 66 0 10 PH 30 AR 0 MA MG CY TA OF BL CY ET NT HI AN A IN C HY 00 02 03 [address] 40 -1 -[address] ti OC 60 7- 7- 00 00 SI ve OD 12 20 20 0 47 DE ON 50 17 17 65 -A 5 86 PH CE AR TA MA VT CY NO PH OF N CY 10 NT -3 HI 25 AN A IN C ME 65 02 03 60 30 00 EA Ac TO 86 -1 -[address] ti RI 20 7- 7- 00 00 SI ve OL 06 20 20 47 DE OL 39 17 17 28 9 69 PH TA AR RT MA RA CY TE OF 50 CY NT MG HI AN TA A B IN C GA 16 02 03 90 30 00 EA Ac BA 71 -1 -[address] ti PE 40 7- 7- 00 00 SI ve NT 33 20 20 47 DE IN 00 17 17 28 2 68 PH 60 AR 0 MA MG CY TA OF BL CY ET NT HI AN A IN C DI 00 02 03 60 30 00 EA Ac CL 22 -1 -[address] ti OF 82 7- 7- 00 00 SI ve EN 55 20 20 46 DE AC 19 17 17 58 6 24 PH SO AR D MA EC CY 75 OF CY MG NT HI TA AN B A IN C SI 16 02 03 30 30 00 EA Ac MV 71 -1 -[address] ti 40 7- 7- 00 00 SI ve TA 68 20 20 46 DE TI 30 17 17 93 N 3 45 PH 20 AR MA MG CY TA OF BL CY ET NT HI AN A IN C OM 62 02 03 30 30 00 EA Ac EP 17 -1 -[address] ti RA 50 7- 7- 00 00 SI ve ZO 13 20 20 46 DE LE 64 17 [address] AR MA 40 CY MG OF CY CA NT PS HI UL AN E A IN C PO 00 02 03 30 30 00 EA Ac TA 78 -1 -[address] ti SS 15 0- 0- 00 00 SI ve IU 72 20 20 46 DE M 00 17 17 58 CL 5 32 PH AR ER MA CY 20 OF ME CY Q NT TA HI BL AN ET A IN C BU 10 02 03 30 30 00 EA Ac RI 37 -1 -[address] ti OP 00 0- 0- 00 00 SI ve IO 10 20 20 47 DE N 10 17 17 57 HC 3 33 PH L AR XL MA CY 15 0 OF MG CY NT TA HI BL AN ET A IN C IS 13 02 03 30 30 00 EA Ac OS 66 -1 -[address] ti OR 80 4- 0- 00 00 SI ve BI 10 20 20 47 DE DE 40 17 17 21 1 21 PH MN AR MA ER CY 30 OF CY MG NT HI TA AN BL A ET IN C LO 65 02 03 30 30 00 EA Ac SA 86 -0 -[address] ti RT 20 8- 3- 00 00 SI ve AN 20 20 20 47 DE 19 17 17 54 PO 0 53 PH TA AR SS MA IU CY M 25 OF CY MG NT HI TA AN B A IN C TR 50 01 02 30 30 00 EA Ac AZ 11 -2 -[address] ti OD 10 7- 4- 00 00 SI ve ON 44 20 20 46 DE E 10 17 17 66 15 1 99 PH 0 AR MG MA CY TA BL OF ET CY NT HI AN A IN C DI 00 01 02 60 30 00 EA Ac CL 22 -2 -[address] ti OF 82 0- 7- 00 00 SI ve EN 55 20 20 46 DE AC 19 17 17 58 6 24 PH SO AR D MA EC CY 75 OF CY MG NT HI TA AN B A IN C RA 68 01 02 30 30 00 EA Ac NI 46 -2 -[address] ti TI 20 0- 7- 00 00 SI ve DI 24 20 20 45 DE NE 92 17 17 14 0 37 PH 30 AR 0 MA MG CY TA OF BL CY ET NT HI AN A IN C OM 62 01 02 30 30 00 EA Ac EP 17 -2 -[address] ti RA 50 0- 7- 00 00 SI ve ZO 13 20 20 46 DE LE 64 17 17 [address] AR MA 40 CY MG OF CY CA NT PS HI UL AN E A IN C SI 16 01 02 30 30 00 EA Ac MV 71 -2 -[address] ti 40 0- 7- 00 00 SI ve TA 68 20 20 46 DE TI 30 17 17 93 N 3 45 PH 20 AR MA MG CY TA OF BL CY ET NT HI AN A IN C GA 16 01 02 90 30 00 EA Ac BA 71 -1 -[address] ti PE 40 8- 0- 00 00 SI ve NT 33 20 20 47 DE IN 00 17 17 28 2 68 PH 60 AR 0 MA MG CY TA OF BL CY ET NT HI AN A IN C ME 65 01 02 60 30 00 EA Ac TO 86 -1 -[address] ti RI 20 8- 0- 00 00 SI ve OL 06 20 20 47 DE OL 39 17 17 28 9 69 PH TA AR RT MA RA CY TE OF 50 CY NT MG HI AN TA A B IN C HY 00 02 [address] 40 -1 -[address] ti OC 60 8- 0- 00 00 SI ve OD 12 20 20 0 47 DE ON 50 17 17 28 -A 5 90 PH CE AR TA MA VT CY NO PH OF N CY 10 NT -3 HI 25 AN A IN C IS 13 02 30 30 00 EA Ac OS 66 -1 -[address] ti OR 80 1- 3- 00 00 SI ve BI 10 20 20 47 DE DE 40 17 17 21 1 21 PH MN AR MA ER CY 30 OF CY MG NT HI TA AN BL A ET IN C AL 00 01 02 12 30 00 EA Ac RI 78 -0 -[address] ti AZ 11 4- 3- 00 00 SI ve OL 07 20 20 0 47 DE AM 91 17 17 12 1 0 43 PH AR MG MA CY TA BL OF ET CY NT HI AN A IN C NI 43 01 02 25 25 00 EA Ac TR 59 -1 -[address] ti OG 80 1- 3- 00 00 SI ve LY 43 20 20 47 DE CE 61 17 17 21 RI 1 20 PH N AR 0. MA 4 CY MG OF TA CY BL NT ET HI AN SL A IN C TR 50 12 01 30 30 00 EA Ac AZ 11 -2 -[address] ti OD 10 6- 7- 00 00 SI ve ON 44 20 20 46 DE E 10 16 17 66 15 1 99 PH 0 AR MG MA CY TA BL OF ET CY NT HI AN A IN C DO 47 12 01 20 10 00 EA Ac XY 78 -2 -[address] ti CY 10 7- 7- 00 00 SI ve CL 49 20 20 47 DE IN 00 16 17 02 E 5 18 PH HY AR CL MA AT CY E 10 OF 0 CY MG NT HI CA AN P A IN C ME 00 12 01 21 6 00 EA Ac TH 78 -2 -[address] ti YL 15 7- 7- 00 00 SI ve RI 02 20 20 47 DE ED 20 16 17 02 NI 7 17 PH SO AR LO MA NE CY 4 OF MG CY NT DO HI SE AN PK A IN C OM 62 12 01 30 30 00 EA Ac EP 17 -1 -[address] ti RA 50 9- 0- 00 00 SI ve ZO 13 20 20 46 DE LE 64 16 17 [address] AR MA 40 CY MG OF CY CA NT PS HI UL AN E A IN C RA 68 12 01 30 30 00 EA Ac NI 46 -1 -[address] ti TI 20 9- 0- 00 00 SI ve DI 24 20 20 45 DE NE 92 16 17 14 0 37 PH 30 AR 0 MA MG CY TA OF BL CY ET NT HI AN A IN C PO 00 12 01 30 30 00 EA Ac TA 78 -1 -[address] ti SS 15 9- 0- 00 00 SI ve IU 72 20 20 46 DE M 00 16 17 58 CL 5 32 PH AR ER MA CY 20 OF ME CY Q NT TA HI BL AN ET A IN C DI 00 12 60 30 00 EA Ac CL 22 -1 -[address] ti OF 82 9- 0- 00 00 SI ve EN 55 20 20 46 DE AC 19 16 17 58 6 24 PH SO AR D MA EC CY 75 OF CY MG NT HI TA AN B A IN C TR 16 12 60 30 00 EA Ac AM 71 -1 -[address] ti AD 40 9- 0- 00 00 SI ve OL 11 20 20 46 DE 11 16 17 93 HC 2 72 PH L AR 50 MA CY MG OF TA CY BL NT ET HI AN A IN C HY 00 12 01 [address] 40 -1 -[address] ti OC 60 9- 0- 00 00 SI ve OD 12 20 20 0 46 DE ON 50 16 17 94 -A 5 36 PH CE AR TA MA VT CY NO PH OF N CY 10 NT -3 HI 25 AN A IN C GA 16 12 01 90 30 00 EA Ac BA 71 -1 -[address] ti PE 40 9- 0- 00 00 SI ve NT 33 20 20 46 DE IN 00 16 17 93 2 44 PH 60 AR 0 MA MG CY TA OF BL CY ET NT HI AN A IN C VE 00 12 01 18 30 00 EA Ac NT 17 -1 -[address] ti OL 30 9- 0- 00 00 SI ve IN 68 20 20 46 DE 22 16 17 93 HF 0 46 PH A AR 90 MA CY MC G OF IN CY TORRES NT LE HI R AN A IN C SI 16 12 01 30 30 00 EA Ac MV 71 -1 -[address] ti 40 9- 0- 00 00 SI ve TA 68 20 20 46 DE TI 30 16 17 93 N 3 45 PH 20 AR MA MG CY TA OF BL CY ET NT HI AN A IN C ME 65 12 01 60 30 00 EA Ac TO 86 -1 -[address] ti RI 20 9- 0- 00 00 SI ve OL 06 20 20 45 DE OL 39 16 17 87 9 70 PH TA AR RT MA RA CY TE OF 50 CY NT MG HI AN TA A B IN C AL 00 12 01 12 30 00 EA Ac RI 78 -0 -[address] ti AZ 11 6- 9- 00 00 SI ve OL 07 20 20 0 46 DE AM 91 16 17 78 1 0 51 PH AR MG MA CY TA BL OF ET CY NT HI AN A IN C CE 00 04 1 No FT 40 -2 RI 97 9- Lo AX 33 20 ng ON 30 13 er E 4 1 Ac GM ti ve AL So 00 04 1 No d 07 -2 Ch 47 9- Lo lo 10 20 ng ri 11 13 er de 3 Ac 0. ti 9% ve 50 ML Ad v Al 68 04 1 No pr 08 -2 az 40 9- Lo ol 02 20 ng am 00 13 er 1 1M Ac G ti Ta ve bl et LE 00 04 0 No XI 46 -2 SC 96 9- Lo AN 50 20 ng 18 13 er IN [address] ti IO ve N 63 04 1 No PI 73 -2 RI 90 9- Lo N 43 20 ng 81 40 13 er 1 MG Ac ti CH ve EW AB LE TA BL ET FU 51 04 1 No RO 07 -2 SE 90 9- Lo VT 07 20 ng DE 22 13 er 0 20 Ac ti MG ve TA BL ET Li 00 04 1 No si 17 -2 no 23 9- Lo pr 75 20 ng il 91 13 er 0 10 Ac MG ti ve Ta bl et RI 00 04 1 No OT 00 -2 ON 80 9- Lo IX 84 20 ng [address] 9 Ac 40 ti ve MG TA BL ET NU 77 04 0 No C- 77 -2 IS 77 9- Lo OT 77 20 ng OP 79 13 er E [address] ti IO ve LY TE ;1 DO SE NU 77 04 0 No C- 77 -2 IS 77 9- Lo OT 77 20 ng OP 79 13 er E [address] ti IO ve LY TE ;1 DO SE RA 63 04 0 No D- 80 -2 SA 70 9- Lo LI 10 20 ng NE 07 13 er 5A FL Ac US ti H ve 10 ML SY RI NG E RA 63 04 0 No D- 80 -2 SA 70 9- Lo LI 10 20 ng NE 07 13 er 5A FL Ac US ti H ve 10 ML SY RI NG E So 00 04 1 No d 07 -2 Ch 47 9- Lo lo 10 20 ng ri 11 13 er de 3 Ac 0. ti 9% ve 50 ML Ad v Al 68 04 1 No pr 08 -2 az 40 9- Lo ol 02 20 ng am 00 13 er 1 1M Ac G ti Ta ve bl et Li 00 04 1 No si 17 -2 no 23 9- Lo pr 75 20 ng il 91 13 er 0 10 Ac MG ti ve Ta bl et NU 77 04 0 No C- 77 -2 IS 77 9- Lo OT 77 20 ng OP 79 13 er E [address] ti IO ve LY TE ;1 DO SE NU 77 04 0 No C- 77 -2 IS 77 9- Lo OT 77 20 ng OP 79 13 er E [address] ti IO ve LY TE ;1 DO SE RA 63 04 0 No D- 80 -2 SA 70 9- Lo LI 10 20 ng NE 07 13 er 5A FL Ac US ti H ve 10 ML SY RI NG E RA 63 04 0 No D- 80 -2 SA 70 9- Lo LI 10 20 ng NE 07 13 er 5A FL Ac US ti H ve 10 ML SY RI NG E So 00 04 0 No d 07 -2 Ch 47 8- Lo lo 10 20 ng ri 11 13 er de 3 Ac 0. ti 9% ve 50 ML Ad v Sa 63 04 1 No li 80 -2 ne 70 8- Lo 10 20 ng Fl 07 13 er us 5 h Ac 10 ti ML ve Sy ri ng e As 51 04 0 No pi 07 -2 ri 90 8- Lo n 00 20 ng 32 52 13 er 5M 0 G Ac Ta ti bl ve et Ni 00 04 2 No co 06 -2 ti 70 8- Lo ne 81 20 ng 02 13 er 21 1 MG Ac /2 ti 4H ve R Pa tc h Al 68 04 1 No pr 08 -2 az 40 8- Lo ol 02 20 ng am 00 13 er 1 1M Ac G ti Ta ve bl et Ga 68 04 2 No ba 08 -2 pe 40 8- Lo nt 59 20 ng in 46 13 er 5 10 Ac 0M ti G ve Ca ps ul e Me 68 04 2 No to 08 -2 cl 40 8- Lo op 09 20 ng ra 10 13 er mi 1 de Ac ti 10 ve MG Ta bl et CE 00 04 0 No FT 40 -2 RI 97 8- Lo AX 33 20 ng ON 30 13 er E 4 1 Ac GM ti ve AL So 00 04 0 No d 07 -2 Ch 47 8- Lo lo 10 20 ng ri 11 13 er de 3 Ac 0. ti 9% ve 50 ML Ad v AZ 00 04 1 No IT 40 -2 HR 90 8- Lo OM 14 20 ng YC 41 13 er IN 1 Ac I. ti V. ve 50 0 MG AL SO 00 04 1 No DI 40 -2 UM 97 8- Lo 10 20 ng CH 10 13 er LO 2 RI Ac DE ti ve 0. 9% SO LN Sa 63 04 1 No li 80 -2 ne 70 8- Lo 10 20 ng Fl 07 13 er us 5 h Ac 10 ti ML ve Sy ri ng e As 51 04 0 No pi 07 -2 ri 90 8- Lo n 00 20 ng 32 52 13 er 5M 0 G Ac Ta ti bl ve et LO 00 04 2 No VE 07 -2 NO 50 8- Lo X 62 20 ng 40 04 13 er 1 MG Ac /0 ti .4 ve ML SY RI NG E MA 00 04 2 No PA 90 -2 P 41 8- Lo 32 98 20 ng 5 26 13 er MG 1 Ac TA ti BL ve ET Ni 00 04 2 No co 06 -2 ti 70 8- Lo ne 81 20 ng 02 13 er 21 1 MG Ac /2 ti 4H ve R Pa tc h HY [address] 40 -2 OC 60 8- Lo OD 36 20 ng ON 76 13 er -A 2 CE Ac TA ti VT ve NO PH N 10 -3 25 IP 00 04 2 No RA 48 -2 T- 70 8- Lo AL 20 20 ng BU 10 13 er T 1 0. Ac 5- ti 3( ve 2. 5) MG /3 ML Al 68 04 1 No pr 08 -2 az 40 8- Lo ol 02 20 ng am 00 13 er 1 1M Ac G ti Ta ve bl et Ga 68 04 2 No ba 08 -2 pe 40 8- Lo nt 59 20 ng in 46 13 er 5 10 Ac 0M ti G ve Ca ps ul e Me 68 04 2 No to 08 -2 cl 40 8- Lo op 09 20 ng ra 10 13 er mi 1 de Ac ti 10 ve MG Ta bl et ME 51 04 2 No TO 07 -2 RI 90 8- Lo OL 80 20 ng OL 12 13 er 0 TA Ac RT ti RA ve TE 50 MG TA B FU 51 04 0 No RO 07 -1 SE 90 1- Lo VT 07 20 ng DE 32 13 er 0 40 Ac ti MG ve TA BL ET TR 65 10 10 0 90 30 EA 24 MC Ac AM 16 -2 -[address] 61 KE ti AD 20 SI 34 VT ve OL 62 20 20 DE E 71 11 11 JR HC 1 PH L AR WI 50 MA LL CY IA MG M OF F TA BL CY ET NT HI AN A AL 67 10 10 0 90 30 EA 24 MC Ac RI 25 -2 -[address] 61 KE ti AZ 30 1- - 00 SI 33 VT ve OL 90 20 20 DE E AM 21 11 11 JR 1 0 PH AR WI MG MA LL CY IA TA M BL OF F ET CY NT HI AN A CR 00 08 10 3 30 30 EA 23 MC Ac ES 31 -2 -[address] 76 KE ti TO 00 2- 1- 00 SI 62 VT ve R 75 20 20 DE E 10 19 11 11 JR 0 PH MG AR WI MA LL TA CY IA BL M ET OF F CY NT HI AN A LI 00 07 10 3 30 30 EA 23 BE Ac SI 17 -2 -[address] 37 SS ti NO 23 0- 1- 00 SI 00 ON ve RI 75 20 20 DE [place] [address] 0 PH EP 10 AR HE MA N MG CY A TA OF BL ET CY NT HI AN A ME 00 07 10 3 60 30 EA 23 BE Ac TO 09 -2 -[address] 36 SS ti RI 30 0- 1- 00 SI 99 ON ve OL 73 20 20 DE OL [address] 0 PH EP TA AR HE RT MA N RA CY A TE OF 50 CY MG NT HI TA AN B A ME 16 07 10 3 12 30 EA 23 BE Ac TO 71 -2 -[address] 36 SS ti CL 40 0- 1- 00 SI 98 ON ve OP 06 20 20 0 DE RA [address] VT 6 PH EP DE AR HE MA N 10 CY A MG OF TA CY BL NT ET HI AN A RI 37 07 10 3 30 30 EA 23 BE Ac IL 00 -2 -[address] 36 SS ti OS 00 0- 1- 00 SI 97 ON ve EC 45 20 20 DE [address] OT 2 PH EP C AR HE 20 MA N .6 CY A MG OF TA CY BL NT ET HI AN A 00 10 10 0 60 30 EA 24 MC Ac 59 -1 -[address] 44 KE ti 10 0- 1- 00 SI 97 VT ve 50 20 20 DE E 30 11 11 JR 1 PH AR WI MA LL CY IA M OF F CY NT HI AN A TR 00 08 10 4 15 4 EA 23 MC Ac IA 16 -2 -[address] 76 KE ti MC 80 2- 1- 00 SI 63 VT ve IN 00 20 20 DE E OL 31 11 11 JR ON 5 PH E AR WI 0. MA LL 02 CY IA 5% M OF F CR EA CY M NT HI AN A VT 00 09 09 0 30 30 EA 24 MC Ac RT 09 -2 -[address] 23 KE ti AZ 37 3- 3- 00 SI 05 VT ve AP 20 20 20 DE E IN 75 11 11 JR E 6 PH 30 AR WI MA LL MG CY IA M TA OF F BL ET CY NT HI AN A RI 37 07 09 3 30 30 EA 23 BE Ac IL 00 -2 -[address] 36 SS ti OS 00 0- 2- 00 SI 97 ON ve EC 45 20 20 DE [address] OT 2 PH EP C AR HE 20 MA N .6 CY A MG OF TA CY BL NT ET HI AN A ME 16 07 09 3 12 30 EA 23 BE Ac TO 71 -2 -[address] 36 SS ti CL 40 0- 2- 00 SI 98 ON ve OP 06 20 20 0 DE RA [address] VT 6 PH EP DE AR HE MA N 10 CY A MG OF TA CY BL NT ET HI AN A ME 00 07 09 3 60 30 EA 23 BE Ac TO 09 -2 -[address] 36 SS ti RI 30 0- 2- 00 SI 99 ON ve OL 73 20 20 DE OL [address] 0 PH EP TA AR HE RT MA N RA CY A TE OF 50 CY MG NT HI TA AN B A LI 00 07 09 3 30 30 EA 23 BE Ac SI 17 -2 -[address] 37 SS ti NO 23 0- 2- 00 SI 00 ON ve RI 75 20 20 DE [place] [address] 0 PH EP 10 AR HE MA N MG CY A TA OF BL ET CY NT HI AN A CR 00 08 09 3 30 30 EA 23 MC Ac ES 31 -2 -[address] 76 KE ti TO 00 2- 2- 00 SI 62 VT ve R 75 20 20 DE E 10 19 11 11 JR 0 PH MG AR WI MA LL TA CY IA BL M ET OF F CY NT HI AN A AL 67 09 09 0 90 30 EA 24 MC Ac RI 25 -2 -[address] 19 KE ti AZ 30 1- 1- 00 SI 16 VT ve OL 90 20 20 DE E AM 21 11 11 JR 1 0 PH AR WI MG MA LL CY IA TA M BL OF F ET CY NT HI AN A TR 65 09 09 0 90 30 EA 24 MC Ac AM 16 -2 -[address] 19 KE ti AD 20 1- 1- 00 SI 17 VT ve OL 62 20 20 DE E 71 11 11 JR HC 1 PH L AR WI 50 MA LL CY IA MG M OF F TA BL CY ET NT HI AN A CR 00 07 08 3 30 30 EA 23 BE Ac ES 31 -2 -[address] 36 SS ti TO 00 0- 2- 00 SI 96 ON ve R 75 20 20 DE [address] 0 PH EP MG AR HE MA N TA CY A BL ET OF CY NT HI AN A ME 16 07 08 3 12 30 EA 23 BE Ac TO 71 -2 -[address] 36 SS ti CL 40 0- 2- 00 SI 98 ON ve OP 06 20 20 0 DE RA [address] VT 6 PH EP DE AR HE MA N 10 CY A MG OF TA CY BL NT ET HI AN A ME 00 07 08 3 60 30 EA 23 BE Ac TO 09 -2 -[address] 36 SS ti RI 30 0- 2- 00 SI 99 ON ve OL 73 20 20 DE OL [address] 0 PH EP TA AR HE RT MA N RA CY A TE OF 50 CY MG NT HI TA AN B A LI 00 07 08 3 30 30 EA 23 BE Ac SI 17 -2 -[address] 37 SS ti NO 23 0- 2- 00 SI 00 ON ve RI 75 20 20 DE [place] [address] 0 PH EP 10 AR HE MA N MG CY A TA OF BL ET CY NT HI AN A TR 00 08 08 4 15 10 EA 23 MC Ac IA 16 -2 -[address] 76 KE ti MC 80 2- 2- 00 SI 63 VT ve IN 00 20 20 DE E OL 31 11 11 JR ON 5 PH E AR [place] 0. MA LL 02 CY IA 5% M OF F CR EA CY M NT HI AN A AL 67 08 08 0 90 30 EA 23 MC Ac RI 25 -2 -[address] 76 KE ti AZ 30 2- 2- 00 SI 64 VT ve OL 90 20 20 DE E AM 21 11 11 JR 1 0 PH AR WI MG MA LL CY IA TA M BL OF F ET CY NT HI AN A 00 08 08 0 60 30 EA 23 MC Ac 59 -1 -[address] 63 KE ti 10 1- 1- 00 SI 03 VT ve 50 20 20 DE E 30 11 11 JR 1 PH AR WI MA LL CY IA M OF F CY NT HI AN A AL 67 07 07 0 90 30 EA 23 BE Ac RI 25 -2 -[address] 36 SS ti AZ 30 0- 0- 00 SI 94 ON ve OL 90 20 20 DE AM [address] 1 0 PH EP AR HE MG MA N CY A TA BL OF ET CY NT HI AN A TR 65 07 07 0 90 30 EA 23 BE Ac AM 16 -2 -[address] 36 SS ti AD 20 0- 0- 00 SI 95 ON ve OL 62 20 20 DE [address] HC 1 PH EP L AR HE 50 MA N CY A MG OF TA BL CY ET NT HI AN A CR 00 07 07 3 30 30 EA 23 BE Ac ES 31 -2 -[address] 36 SS ti TO 00 0- 0- 00 SI 96 ON ve R 75 20 20 DE [address] 0 PH EP MG AR HE MA N TA CY A BL ET OF CY NT HI AN A RI 37 07 07 3 30 30 EA 23 BE Ac IL 00 -2 -[address] 36 SS ti OS 00 0- 0- 00 SI 97 ON ve EC 45 20 20 DE [address] OT 2 PH EP C AR HE 20 MA N .6 CY A MG OF TA CY BL NT ET HI AN A ME 16 07 07 3 12 30 EA 23 BE Ac TO 71 -2 -[address] 36 SS ti CL 40 0- 0- 00 SI 98 ON ve OP 06 20 20 0 DE RA [address] VT 6 PH EP DE AR HE MA N 10 CY A MG OF TA CY BL NT ET HI AN A ME 00 07 07 3 60 30 EA 23 BE Ac TO 09 -2 -[address] 36 SS ti RI 30 0- 0- 00 SI 99 ON ve OL 73 20 20 DE OL [address] 0 PH EP TA AR HE RT MA N RA CY A TE OF 50 CY MG NT HI TA AN B A 64 07 07 3 30 30 EA 23 BE Ac 67 -2 -[address] 37 SS ti 90 0- 0- 00 SI 00 ON ve 92 20 20 DE [address] 6 PH EP AR HE MA N CY A OF CY NT HI AN A PE 62 07 07 0 40 30 WA 72 SC Ac G 17 -1 -1 00 L- 61 HU ti 33 50 4- 5- .0 MA 97 LS ve 50 44 20 20 00 RT 3 TA 60 11 11 D EL 1 PH CA EC AR MP TR MA BE OL CY LL YT # K E SO 10 LN 05 71 00 07 07 1 60 30 EA 23 MC Ac 59 -1 -[address] 24 KE ti 10 1- 1- 00 SI 96 VT ve 50 20 20 DE E 30 11 11 JR 1 PH AR WI MA LL CY IA M OF F CY NT HI AN A ME 16 03 06 2 12 30 EA 21 MC Ac TO 71 -2 -[address] 78 KE ti CL 40 1- 0- 00 SI 49 VT ve OP 06 20 20 0 DE E RA 20 11 11 JR VT 6 PH DE AR WI MA LL 10 CY IA M MG OF F TA CY BL NT ET HI AN A 64 04 06 2 30 30 EA 22 MC Ac 67 -2 -[address] 21 KE ti 90 1- 0- 00 SI 02 VT ve 92 20 20 DE E 90 11 11 JR 6 PH AR WI MA LL CY IA M OF F CY NT HI AN A ME 00 04 06 2 60 30 EA 22 MC Ac TO 09 -2 -[address] 21 KE ti RI 30 1- 0- 00 SI 03 VT ve OL 73 20 20 DE E OL 31 11 11 JR 0 PH TA AR WI RT MA LL RA CY IA TE M OF F 50 CY MG NT HI TA AN B A RI 37 06 06 2 30 30 EA 23 MC Ac IL 00 -2 -[address] 01 KE ti OS 00 0- 0- 00 SI 17 VT ve EC 45 20 20 DE E 50 11 11 JR OT 2 PH C AR WI 20 MA LL .6 CY IA M MG OF F TA CY BL NT ET HI AN A TR 65 06 06 0 90 30 EA 23 MC Ac AM 16 -2 -[address] 01 KE ti AD 20 0- 0- 00 SI 87 VT ve OL 62 20 20 DE E 71 11 11 JR HC 1 PH L AR WI 50 MA LL CY IA MG M OF F TA BL CY ET NT HI AN A CR 00 06 06 0 30 30 EA 23 MC Ac ES 31 -2 -[address] 01 KE ti TO 00 0- 0- 00 SI 88 VT ve R 75 20 20 DE E 10 19 11 11 JR 0 PH MG AR WI MA LL TA CY IA BL M ET OF F CY NT HI AN A AL 67 06 06 0 90 30 EA 23 MC Ac RI 25 -2 -[address] 01 KE ti AZ 30 0- 0- 00 SI 89 VT ve OL 90 20 20 DE E AM 21 11 11 JR 1 0 PH AR WI MG MA LL CY IA TA M BL OF F ET CY NT HI AN A 00 06 06 0 60 30 EA 22 BE Ac 59 -1 -[address] 88 SS ti 10 0- 0- 00 SI 41 ON ve 50 20 20 DE [address] 1 PH EP AR HE MA N CY A OF CY NT HI AN A PO 51 08 06 1 52 30 EA 18 BE Ac LY 99 -2 -[address] 80 SS ti ET 10 0- 7- 00 SI 04 ON ve HY 45 20 20 0 DE LE [address] NE 7 PH EP AR HE GL MA N YC CY A OL OF 33 50 CY NT PO HI WD AN A CR 00 03 05 2 30 30 EA 21 MC Ac ES 31 -2 -[address] 78 KE ti TO 00 1- 0- 00 SI 41 VT ve R 75 20 20 DE E 10 19 11 11 JR 0 PH MG AR WI MA LL TA CY IA BL M ET OF F CY NT HI AN A RI 37 03 05 2 30 30 EA 21 MC Ac IL 00 -2 -[address] 78 KE ti OS 00 1- 0- 00 SI 42 VT ve EC 45 20 20 DE E 50 11 11 JR OT 2 PH C AR WI 20 MA LL .6 CY IA M MG OF F TA CY BL NT ET HI AN A ME 16 03 05 2 12 30 EA 21 MC Ac TO 71 -2 -[address] 78 KE ti CL 40 1- 0- 00 SI 49 VT ve OP 06 20 20 0 DE E RA 20 11 11 JR VT 6 PH DE AR WI MA LL 10 CY IA M MG OF F TA CY BL NT ET HI AN A 64 04 05 2 30 30 EA 22 MC Ac 67 -2 -[address] 21 KE ti 90 1- 0- 00 SI 02 VT ve 92 20 20 DE E 90 11 11 JR 6 PH AR WI MA LL CY IA M OF F CY NT HI AN A ME 00 04 05 2 60 30 EA 22 MC Ac TO 09 -2 -[address] 21 KE ti RI 30 1- 0- 00 SI 03 VT ve OL 73 20 20 DE E OL 31 11 11 JR 0 PH TA AR WI RT MA LL RA CY IA TE M OF F 50 CY MG NT HI TA AN B A TR 65 05 05 0 90 30 EA 22 BE Ac AM 16 -2 -[address] 62 SS ti AD 20 0- 0- 00 SI 50 ON ve OL 62 20 20 DE [address] HC 1 PH EP L AR HE 50 MA N CY A MG OF TA BL CY ET NT HI AN A AL 67 05 05 0 90 30 EA 22 BE Ac RI 25 -2 -[address] 62 SS ti AZ 30 0- 0- 00 SI 51 ON ve OL 90 20 20 DE AM [address] 1 0 PH EP AR HE MG MA N CY A TA BL OF ET CY NT HI AN A TR 00 05 05 0 60 15 EA 22 Ac IA 16 -1 -[address] 56 KE ti MC 80 7 7 SI 04 VT ve IN 00 20 20 DE E OL 31 11 11 JR ON 5 PH E AR [place] 0. MA LL 02 CY IA 5% M OF F CR EA CY M NT HI AN A 00 05 05 0 60 30 EA 22 Ac 59 -0 -[address] 45 KE ti 10 SI 24 VT ve 50 20 20 DE E 30 11 11 JR 1 PH AR [place] MA LL CY IA M OF F CY NT HI AN A AL 67 03 04 1 90 30 EA 21 Ac RI 25 -2 -[address] 78 KE ti AZ 30 SI 39 VT ve OL 90 20 20 DE E AM 21 11 11 JR 1 0 PH AR WI MG MA LL CY IA TA M BL OF F ET CY NT HI AN A TR 65 03 04 1 90 30 EA 21 Ac AM 16 -2 -[address] 78 KE ti AD 20 SI 40 VT ve OL 62 20 20 DE E 71 11 11 JR HC 1 PH L AR WI 50 MA LL CY IA MG M OF F TA BL CY ET NT HI AN A CR 00 03 04 2 30 30 EA 21 Ac ES 31 -2 -[address] 78 KE ti TO 00 SI 41 VT ve R 75 20 20 DE E 10 19 11 11 JR 0 PH MG AR WI MA LL TA CY IA BL M ET OF F CY NT HI AN A RI 37 03 04 2 30 30 EA 21 Ac IL 00 -2 -[address] 78 KE ti OS 00 SI 42 VT ve EC 45 20 20 DE E 50 11 11 JR OT 2 PH C AR WI 20 MA LL .6 CY IA M MG OF F TA CY BL NT ET HI AN A 64 04 04 2 30 30 EA 22 Ac 67 -2 -[address] 21 KE ti 90 SI 02 VT ve 92 20 20 DE E 90 11 11 JR 6 PH AR [place] MA LL CY IA M OF F CY NT HI AN A ME 00 04 04 2 60 30 EA 22 Ac TO 09 -2 -[address] 21 KE ti RI 30 SI 03 VT ve OL 73 20 20 DE E OL 31 11 11 JR 0 PH TA AR WI RT MA LL RA CY IA TE M OF F 50 CY MG NT HI TA AN B A 00 04 04 0 60 30 EA 22 MC Ac 59 -0 -[address] 01 KE ti 10 SI 02 VT ve 50 20 20 DE E 30 11 11 JR 1 PH AR WI MA LL CY IA M OF F CY NT HI AN A ME 00 11 03 3 60 30 EA 20 BE Ac TO 09 -[address] 06 SS ti RI 30 SI 82 ON ve OL 73 20 20 DE OL [address] 0 PH EP TA AR HE RT MA N RA CY A TE OF 50 CY MG NT HI TA AN B A 64 11 03 4 30 30 EA 20 BE Ac 67 -1 -[address] 06 SS ti 90 SI 85 ON ve 92 20 20 DE [address] 6 PH EP AR HE MA N CY A OF CY NT HI AN A AL 67 03 03 1 90 30 EA 21 MC Ac RI 25 -2 -[address] 78 KE ti AZ 30 SI 39 VT ve OL 90 20 20 DE E AM 21 11 11 JR 1 0 PH AR [place] MG MA LL CY IA TA M BL OF F ET CY NT HI AN A TR 65 03 03 1 90 30 EA 21 MC Ac AM 16 -2 -[address] 78 KE ti AD 20 SI 40 VT ve OL 62 20 20 DE E 71 11 11 JR HC 1 PH L AR WI 50 MA LL CY IA MG M OF F TA BL CY ET NT HI AN A CR 00 03 03 2 30 30 EA 21 MC Ac ES 31 -2 -[address] 78 KE ti TO 00 SI 41 VT ve R 75 20 20 DE E 10 19 11 11 JR 0 PH MG AR WI MA LL TA CY IA BL M ET OF F CY NT HI AN A RI 37 03 03 2 30 30 EA 21 MC Ac IL 00 -2 -[address] 78 KE ti OS 00 SI 42 VT ve EC 45 20 20 DE E 50 11 11 JR OT 2 PH C AR WI 20 MA LL .6 CY IA M MG OF F TA CY BL NT ET HI AN A ME 16 03 03 2 12 30 EA 21 MC Ac TO 71 -2 -[address] 78 KE ti CL 40 SI 49 VT ve OP 06 20 20 0 DE E RA 20 11 11 JR VT 6 PH DE AR WI MA LL 10 CY IA M MG OF F TA CY BL NT ET HI AN A 00 03 03 0 60 30 EA 21 BE Ac 59 -0 -[address] 54 SS ti 10 4 SI 16 ON ve 50 20 20 DE [address] 1 PH EP AR HE MA N CY A OF CY NT HI AN A CR 00 11 02 3 30 30 EA 20 BE Ac ES 31 -1 -[address] 06 SS ti TO 00 SI 79 ON ve R 75 20 20 DE [address] 0 PH EP MG AR HE MA N TA CY A BL ET OF CY NT HI AN A RI 37 11 02 3 30 30 EA 20 BE Ac IL 00 -1 -[address] 06 SS ti OS 00 SI 83 ON ve EC 45 20 20 DE [address] OT 2 PH EP C AR HE 20 MA N .6 CY A MG OF TA CY BL NT ET HI AN A 64 11 02 3 30 30 EA 20 BE Ac 67 -1 -[address] 06 SS ti 90 SI 85 ON ve 92 20 20 DE [address] 6 PH EP AR HE MA N CY A OF CY NT HI AN A PL 63 12 02 0 30 30 EA 20 IM Ac AV 65 -0 -[address] 23 AM ti IX 31 2- SI 21 ve 17 20 20 DE MO 75 10 10 11 TORRES 6 PH MM MG AR ED MA N TA CY BL ET OF CY NT HI AN A TR 65 01 02 1 90 30 EA 20 MC Ac AM 16 -2 -[address] 90 KE ti AD 20 SI 01 VT ve OL 62 20 20 DE E 71 11 11 JR HC 1 PH L AR WI 50 MA LL CY IA MG M OF F TA BL CY ET NT HI AN A AL 00 01 02 1 90 30 EA 20 MC Ac RI 78 -2 -[address] 90 KE ti AZ 11 SI 02 VT ve OL 07 20 20 DE E AM 90 11 11 JR 1 1 PH AR WI MG MA LL CY IA TA M BL OF F ET CY NT HI AN A ME 00 11 02 3 60 30 EA 20 BE Ac TO 09 -1 -[address] 06 SS ti RI 30 9- 5- 00 SI 82 ON ve OL 73 20 20 DE OL [address] 0 PH EP TA AR HE RT MA N RA CY A TE OF 50 CY MG NT HI TA AN B A TR 00 02 02 0 60 10 EA 21 MC Ac IA 16 -1 -[address] 25 KE ti MC 80 5- 5- 00 SI 38 VT ve IN 00 20 20 DE E OL 31 11 11 JR ON 5 PH E AR [place] 0. MA LL 02 CY IA 5% M OF F CR EA CY M NT HI AN A 00 02 02 0 60 30 EA 21 BE Ac 59 -0 -[address] 07 SS ti 10 2- 2- 00 SI 09 ON ve 50 20 20 DE [address] 1 PH EP AR HE MA N CY A OF CY NT HI AN A TR 65 01 01 1 90 30 EA 20 MC Ac AM 16 -2 -[address] 90 KE ti AD 20 1- 1- 00 SI 01 VT ve OL 62 20 20 DE E 71 11 11 JR HC 1 PH L AR WI 50 MA LL CY IA MG M OF F TA BL CY ET NT HI AN A AL 00 01 01 1 90 30 EA 20 MC Ac RI 78 -2 -[address] 90 KE ti AZ 11 1- 1- 00 SI 02 VT ve OL 07 20 20 DE E AM 90 11 11 JR 1 1 PH AR WI MG MA LL CY IA TA M BL OF F ET CY NT HI AN A CR 00 11 01 3 30 30 EA 20 BE Ac ES 31 -1 -[address] 06 SS ti TO 00 9- 0- 00 SI 79 ON ve R 75 20 20 DE [address] 0 PH EP MG AR HE MA N TA CY A BL ET OF CY NT HI AN A RI 37 11 01 3 30 30 EA 20 BE Ac IL 00 -1 -[address] 06 SS ti OS 00 9- 0- 00 SI 83 ON ve EC 45 20 20 DE [address] OT 2 PH EP C AR HE 20 MA N .6 CY A MG OF TA CY BL NT ET HI AN A LI 00 11 01 3 30 30 EA 20 BE Ac SI 17 -1 -[address] 06 SS ti NO 23 9- 0- 00 SI 85 ON ve RI 75 20 20 DE [place] [address] 0 PH EP 10 AR HE MA N MG CY A TA OF BL ET CY NT HI AN A ME 00 11 01 3 60 30 EA 20 BE Ac TO 09 -1 -[address] 06 SS ti RI 30 9- 3- 00 SI 82 ON ve OL 73 20 20 DE OL [address] 0 PH EP TA AR HE RT MA N RA CY A TE OF 50 CY MG NT HI TA AN B A PL 63 12 01 0 30 30 EA 20 IM Ac AV 65 -0 -[address] 23 AM ti IX 31 2- 2- 00 SI 21 ve 17 20 20 DE MO 75 10 10 11 TORRES 6 PH MM MG AR ED MA N TA CY BL ET OF CY NT HI AN A 00 01 01 0 60 30 EA 20 BE Ac 59 -0 -[address] 63 SS ti 10 2- 2- 00 SI 08 ON ve 50 20 20 DE [address] 1 PH EP AR HE MA N CY A OF CY NT HI AN A RI 37 11 12 3 30 30 EA 20 BE Ac IL 00 -1 -[address] 06 SS ti OS 00 9- 1- 00 SI 83 ON ve EC 45 20 20 DE [address] OT 2 PH EP C AR HE 20 MA N .6 CY A MG OF TA CY BL NT ET HI AN A TR 65 12 12 0 90 30 EA 20 MC Ac AM 16 -2 -[address] 47 KE ti AD 20 0- 0- 00 SI 80 VT ve OL 62 20 20 DE E 71 10 10 JR HC 1 PH L AR WI 50 MA LL CY IA MG M OF F TA BL CY ET NT HI AN A AL 00 12 12 0 90 30 EA 20 MC Ac RI 78 -2 -[address] 47 KE ti AZ 11 0- 0- 00 SI 79 VT ve OL 07 20 20 DE E AM 90 10 10 JR 1 1 PH AR WI MG MA LL CY IA TA M BL OF F ET CY NT HI AN A LI 00 11 12 3 30 30 EA 20 BE Ac SI 17 -1 -[address] 06 SS ti NO 23 9- 0- 00 SI 85 ON ve RI 75 20 20 DE [place] [address] 0 PH EP 10 AR HE MA N MG CY A TA OF BL ET CY NT HI AN A CR 00 11 12 3 30 30 EA 20 BE Ac ES 31 -1 -[address] 06 SS ti TO 00 9- 0- 00 SI 79 ON ve R 75 20 20 DE [address] 0 PH EP MG AR HE MA N TA CY A BL ET OF CY NT HI AN A 00 12 12 0 30 8 EA 20 IM Ac 59 -1 -[address] 42 AM ti 13 6- 6- 00 SI 53 ve 20 20 20 DE MO 30 10 10 TORRES 1 PH MM AR ED MA N CY OF CY NT HI AN A TR 00 12 12 0 60 10 EA 20 MC Ac IA 16 -1 -[address] 37 KE ti MC 80 3- 3- 00 SI 36 VT ve IN 00 20 20 DE E OL 31 10 10 JR ON 5 PH E AR [place] 0. MA LL 02 CY IA 5% M OF F CR EA CY M NT HI AN A PL 63 12 12 0 30 30 EA 20 IM Ac AV 65 -0 -[address] 23 AM ti IX 31 2- 2- 00 SI 21 ve 17 20 20 DE MO 75 10 10 10 TORRES 6 PH MM MG AR ED MA N TA CY BL ET OF CY NT HI AN A 00 12 12 0 30 7 EA 20 IM Ac 59 -0 -[address] 23 AM ti 10 2- 2- 00 SI 22 ve 38 20 20 DE MO 50 10 10 TORRES 1 PH MM AR ED MA N CY OF CY NT HI AN A 00 11 11 0 60 30 EA 20 BE Ac 59 -1 -[address] 06 SS ti 10 9- 0- 00 SI 86 ON ve 50 20 20 DE [address] 1 PH EP AR HE MA N CY A OF CY NT HI AN A CR 00 11 11 3 30 30 EA 20 BE Ac ES 31 -1 -[address] 06 SS ti TO 00 9 SI 79 ON ve R 75 20 20 DE [address] 0 PH EP MG AR HE MA N TA CY A BL ET OF CY NT HI AN A TR 65 11 11 0 90 30 EA 20 BE Ac AM 16 -1 -[address] 06 SS ti AD 20 9 9- SI 80 ON ve OL 62 20 20 DE [address] HC 1 PH EP L AR HE 50 MA N CY A MG OF TA BL CY ET NT HI AN A AL 00 11 11 0 90 30 EA 20 BE Ac RI 78 -1 -[address] 06 SS ti AZ 11 9 9- SI 81 ON ve OL 07 20 20 DE AM [address] 1 1 PH EP AR HE MG MA N CY A TA BL OF ET CY NT HI AN A ME 00 11 11 3 60 30 EA 20 BE Ac TO 09 -1 -[address] 06 SS ti RI 30 9- 9- 00 SI 82 ON ve OL 73 20 20 DE OL [address] 0 PH EP TA AR HE RT MA N RA CY A TE OF 50 CY MG NT HI TA AN B A RI 37 11 11 3 30 30 EA 20 BE Ac IL 00 -1 -[address] 06 SS ti OS 00 9- 9- 00 SI 83 ON ve EC 45 20 20 DE [address] OT 2 PH EP C AR HE 20 MA N .6 CY A MG OF TA CY BL NT ET HI AN A LI 00 11 11 3 30 30 EA 20 BE Ac SI 17 -1 -[address] 06 SS ti NO 23 9 SI 85 ON ve RI 75 20 20 DE [place] [address] 0 PH EP 10 AR HE MA N MG CY A TA OF BL ET CY NT HI AN A ME 16 08 11 2 12 30 EA 18 BE Ac TO 71 -2 -[address] 79 SS ti CL 40 0- 8- 00 SI 08 ON ve OP 06 20 20 0 DE RA [address] VT 6 PH EP DE AR HE MA N 10 CY A MG OF TA CY BL NT ET HI AN A RI 37 08 10 2 30 30 EA 18 BE Ac IL 00 -2 -[address] 79 SS ti OS 00 0- 8- 00 SI 02 ON ve EC 45 20 20 DE [address] OT 2 PH EP C AR HE 20 MA N .6 CY A MG OF TA CY BL NT ET HI AN A ME 00 08 10 2 60 30 EA 18 BE Ac TO 09 -2 -[address] 79 SS ti RI 30 0- 8- 00 SI 03 ON ve OL 73 20 20 DE OL [address] 0 PH EP TA AR HE RT MA N RA CY A TE OF 50 CY MG NT HI TA AN B A AL 00 08 10 2 90 30 EA 18 BE Ac RI 78 -2 -[address] 79 SS ti AZ 11 0- 8- 00 SI 04 ON ve OL 07 20 20 DE AM [address] 1 1 PH EP AR HE MG MA N CY A TA BL OF ET CY NT HI AN A TR 65 08 10 2 90 30 EA 18 BE Ac AM 16 -2 -[address] 79 SS ti AD 20 0- 8- 00 SI 05 ON ve OL 62 20 20 DE [address] HC 1 PH EP L AR HE 50 MA N CY A MG OF TA BL CY ET NT HI AN A CR 00 08 10 2 30 30 EA 18 BE Ac ES 31 -2 -[address] 79 SS ti TO 00 0- 8- 00 SI 06 ON ve R 75 20 20 DE [address] 0 PH EP MG AR HE MA N TA CY A BL ET OF CY NT HI AN A 00 08 10 2 60 30 EA 18 BE Ac 59 -2 -[address] 79 SS ti 10 0- 8- 00 SI 07 ON ve 50 20 20 DE [address] 1 PH EP AR HE MA N CY A OF CY NT HI AN A ME 16 08 10 2 12 30 EA 18 BE Ac TO 71 -2 -[address] 79 SS ti CL 40 0- 8- 00 SI 08 ON ve OP 06 20 20 0 DE RA [address] VT 6 PH EP DE AR HE MA N 10 CY A MG OF TA CY BL NT ET HI AN A LI 00 08 10 2 30 30 EA 18 BE Ac SI 17 -2 -[address] 79 SS ti NO 23 0- 8- 00 SI 09 ON ve RI 75 20 20 [place] [address] 0 PH EP 10 AR HE MA N MG CY A TA OF BL ET CY NT HI AN A 68 10 10 0 14 7 EA 19 BE Ac 82 -1 -[address] 59 SS ti 00 8- 8- 00 SI 27 ON ve 06 20 20 DE [address] 9 PH EP AR HE MA N CY A OF CY NT HI AN A 68 10 10 0 14 7 EA 19 BE Ac 82 -0 -[address] 40 SS ti 00 5- 5- 00 SI 53 ON ve 06 20 20 DE [address] 9 PH EP AR HE MA N CY A OF CY NT HI AN A 00 10 10 0 7. 7 EA 19 BE Ac 14 -0 -[address] 40 SS ti 31 5- 5- 0 SI 54 ON ve 47 20 20 DE [address] 5 PH EP AR HE MA N CY A OF CY NT HI AN A TR 00 09 09 0 60 15 EA 19 MC Ac IA 16 -2 -[address] 29 KE ti MC 80 7- 7- 00 SI 95 VT ve IN 00 20 20 DE E OL 31 10 10 JR ON 5 PH E AR WI 0. MA LL 02 CY IA 5% M OF F CR EA CY M NT HI AN A 60 09 09 0 12 5 EA 19 BE Ac 25 -2 -[address] 31 SS ti 80 7- 7- 00 SI 20 ON ve 23 20 20 0 DE [address] 6 PH EP AR HE MA N CY A OF CY NT HI AN A AZ 00 09 09 0 6. 5 EA 19 BE Ac IT 09 -2 -[address] 24 SS ti HR 37 2- 2- 0 SI 67 ON ve OM 14 20 20 DE YC [address] IN 8 PH EP AR HE 25 MA N 0 CY A MG OF TA BL CY ET NT HI AN A 60 09 09 0 12 5 EA 19 BE Ac 25 -2 -[address] 24 SS ti 80 2- 2- 00 SI 66 ON ve 23 20 20 0 DE [address] 6 PH EP AR HE MA N CY A OF CY NT HI AN A RI 37 08 09 2 30 30 EA 18 BE Ac IL 00 -2 -[address] 79 SS ti OS 00 0- 7- 00 SI 02 ON ve EC 45 20 20 DE [address] OT 2 PH EP C AR HE 20 MA N .6 CY A MG OF TA CY BL NT ET HI AN A ME 00 08 09 2 60 30 EA 18 BE Ac TO 09 -2 -[address] 79 SS ti RI 30 0- 7- 00 SI 03 ON ve OL 73 20 20 DE OL [address] 0 PH EP TA AR HE RT MA N RA CY A TE OF 50 CY MG NT HI TA AN B A AL 00 08 09 2 90 30 EA 18 BE Ac RI 78 -2 -[address] 79 SS ti AZ 11 0- 7- 00 SI 04 ON ve OL 07 20 20 DE AM [address] 1 1 PH EP AR HE MG MA N CY A TA BL OF ET CY NT HI AN A TR 65 08 09 2 90 30 EA 18 BE Ac AM 16 -2 -[address] 79 SS ti AD 20 0- 7- 00 SI 05 ON ve OL 62 20 20 DE [address] HC 1 PH EP L AR HE 50 MA N CY A MG OF TA BL CY ET NT HI AN A CR 00 08 09 2 30 30 EA 18 BE Ac ES 31 -2 -[address] 79 SS ti TO 00 0- 7- 00 SI 06 ON ve R 75 20 20 DE [address] 0 PH EP MG AR HE MA N TA CY A BL ET OF CY NT HI AN A 00 08 09 2 60 30 EA 18 BE Ac 59 -2 -[address] 79 SS ti 10 0- 7- 00 SI 07 ON ve 50 20 20 DE [address] 1 PH EP AR HE MA N CY A OF CY NT HI AN A LI 00 08 09 2 30 30 EA 18 BE Ac SI 17 -2 -[address] 79 SS ti NO 23 0- 7- 00 SI 09 ON ve RI 75 20 20 DE [place] [address] 0 PH EP 10 AR HE MA N MG CY A TA OF BL ET CY NT HI AN A RI 37 08 08 2 30 30 EA 18 BE Ac IL 00 -2 -[address] 79 SS ti OS 00 0- 0- 00 SI 02 ON ve EC 45 20 20 DE [address] OT 2 PH EP C AR HE 20 MA N .6 CY A MG OF TA CY BL NT ET HI AN A ME 00 08 08 2 60 30 EA 18 BE Ac TO 09 -2 -[address] 79 SS ti RI 30 0- 0- 00 SI 03 ON ve OL 73 20 20 DE OL [address] 0 PH EP TA AR HE RT MA N RA CY A TE OF 50 CY MG NT HI TA AN B A AL 00 08 08 2 90 30 EA 18 BE Ac RI 78 -2 -[address] 79 SS ti AZ 11 0- 0- 00 SI 04 ON ve OL 07 20 20 DE AM [address] 1 1 PH EP AR HE MG MA N CY A TA BL OF ET CY NT HI AN A TR 65 08 08 2 90 30 EA 18 BE Ac AM 16 -2 -[address] 79 SS ti AD 20 0- 0- 00 SI 05 ON ve OL 62 20 20 DE [address] HC 1 PH EP L AR HE 50 MA N CY A MG OF TA BL CY ET NT HI AN A CR 00 08 08 2 30 30 EA 18 BE Ac ES 31 -2 -[address] 79 SS ti TO 00 0- 0- 00 SI 06 ON ve R 75 20 20 DE [address] 0 PH EP MG AR HE MA N TA CY A BL ET OF CY NT HI AN A 00 08 08 2 60 30 EA 18 BE Ac 59 -2 -[address] 79 SS ti 10 0- 0- 00 SI 07 ON ve 50 20 20 DE [address] 1 PH EP AR HE MA N CY A OF CY NT HI AN A ME 16 08 08 2 12 30 EA 18 BE Ac TO 71 -2 -[address] 79 SS ti CL 40 0- 0- 00 SI 08 ON ve OP 06 20 20 0 DE RA [address] VT 6 PH EP DE AR HE MA N 10 CY A MG OF TA CY BL NT ET HI AN A LI 00 08 08 2 30 30 EA 18 BE Ac SI 17 -2 -[address] 79 SS ti NO 23 0- 0- 00 SI 09 ON ve RI 75 20 20 [place] [address] 0 PH EP 10 AR HE MA N MG CY A TA OF BL ET CY NT HI AN A PO 51 08 08 1 52 30 EA 18 BE Ac LY 99 -2 -[address] 80 SS ti ET 10 0- 0- 00 SI 04 ON ve HY 45 20 20 0 DE LE [address] NE 7 PH EP AR HE GL MA N YC CY A OL OF 33 50 CY NT PO HI WD AN A TR 00 04 07 1 60 15 EA 17 MC Ac IA 16 -1 -[address] 25 KE ti MC 80 9- 0- 00 SI 54 VT ve IN 00 20 20 DE E OL 31 10 10 JR ON 5 PH E AR [place] 0. MA LL 02 CY IA 5% M OF F CR EA CY M NT HI AN A AL 00 05 07 2 90 30 EA 17 BE Ac RI 78 -1 -[address] 66 SS ti AZ 11 9- 9 00 SI 19 ON ve OL 07 20 20 DE AM [address] 1 1 PH EP AR HE MG MA N CY A TA BL OF ET CY NT HI AN A 00 05 07 2 60 30 EA 17 BE Ac 59 -1 -[address] 66 SS ti 10 9- 9- 00 SI 20 ON ve 50 20 20 DE [address] 1 PH EP AR HE MA N CY A OF CY NT HI AN A TR 65 05 07 2 90 30 EA 17 BE Ac AM 16 -1 -[address] 66 SS ti AD 20 9- 9- 00 SI 21 ON ve OL 62 20 20 DE [address] HC 1 PH EP L AR HE 50 MA N CY A MG OF TA BL CY ET NT HI AN A ME 00 05 07 2 60 30 EA 17 BE Ac TO 09 -1 -[address] 66 SS ti RI 30 9- 9- 00 SI 22 ON ve OL 73 20 20 DE OL [address] 0 PH EP TA AR HE RT MA N RA CY A TE OF 50 CY MG NT HI TA AN B A RI 37 05 07 2 30 30 EA 17 BE Ac IL 00 -1 -[address] 66 SS ti OS 00 SI 23 ON ve EC 45 20 20 DE [address] OT 2 PH EP C AR HE 20 MA N .6 CY A MG OF TA CY BL NT ET HI AN A CR 00 06 07 2 30 30 EA 18 MC Ac ES 31 -2 -[address] 06 KE ti TO 00 SI 29 VT ve R 75 20 20 DE E 10 19 10 10 JR 0 PH MG AR WI MA LL TA CY IA BL M ET OF F CY NT HI AN A LI 00 06 07 2 30 30 EA 18 MC Ac SI 17 -2 -[address] 06 KE ti NO 23 SI 30 VT ve RI 75 20 20 DE E [place] 96 10 10 JR 0 PH 10 AR WI MA LL MG CY IA M TA OF F BL ET CY NT HI AN A CR 00 06 06 2 30 30 EA 18 MC Ac ES 31 -2 -[address] 06 KE ti TO SI 29 VT ve R 75 20 20 DE E 10 19 10 10 JR 0 PH MG AR WI MA LL TA CY IA BL M ET OF F CY NT HI AN A LI 00 06 06 2 30 30 EA 18 MC Ac SI 17 -2 -[address] 06 KE ti NO 23 SI 30 VT ve RI 75 20 20 DE E [place] 96 10 10 JR 0 PH 10 AR WI MA LL MG CY IA M TA OF F BL ET CY NT HI AN A AL 00 05 06 2 90 30 EA 17 BE Ac RI 78 -1 -[address] 66 SS ti AZ 11 SI 19 ON ve OL 07 20 20 DE AM [address] 1 1 PH EP AR HE MG MA N CY A TA BL OF ET CY NT HI AN A 00 05 06 2 60 30 EA 17 BE Ac 59 -1 -[address] 66 SS ti 10 SI 20 ON ve 50 20 20 DE [address] 1 PH EP AR HE MA N CY A OF CY NT HI AN A TR 65 05 06 2 90 30 EA 17 BE Ac AM 16 -1 -[address] 66 SS ti AD 20 00 SI 21 ON ve OL 62 20 20 DE [address] HC 1 PH EP L AR HE 50 MA N CY A MG OF TA BL CY ET NT HI AN A ME 00 05 06 2 60 30 EA 17 BE Ac TO 09 -1 -[address] 66 SS ti RI 30 00 SI 22 ON ve OL 73 20 20 DE OL [address] 0 PH EP TA AR HE RT MA N RA CY A TE OF 50 CY MG NT HI TA AN B A RI 37 05 06 2 30 30 EA 17 BE Ac IL 00 -1 -[address] 66 SS ti OS 00 SI 23 ON ve EC 45 20 20 DE [address] OT 2 PH EP C AR HE 20 MA N .6 CY A MG OF TA CY BL NT ET HI AN A AL 00 05 05 2 90 30 EA 17 BE Ac RI 78 -1 -[address] 66 SS ti AZ 11 SI 19 ON ve OL 07 20 20 DE AM [address] 1 1 PH EP AR HE MG MA N CY A TA BL OF ET CY NT HI AN A LI 00 02 05 3 30 30 EA 16 MC Ac SI 17 -1 -[address] 43 KE ti NO 23 SI 61 VT ve RI 75 20 20 DE E IL 96 10 10 JR 0 PH 10 AR WI MA LL MG CY IA M TA OF F BL ET CY NT HI AN A CR 00 02 05 3 30 30 EA 16 MC Ac ES 31 -1 -[address] 43 KE ti TO 00 SI 62 VT ve R 75 20 20 DE E 10 19 10 10 JR 0 PH MG AR WI MA LL TA CY IA BL M ET OF F CY NT HI AN A 00 05 05 2 60 30 EA 17 BE Ac 59 -1 -[address] 66 SS ti 10 00 SI 20 ON ve 50 20 20 DE [address] 1 PH EP AR HE MA N CY A OF CY NT HI AN A TR 65 05 05 2 90 30 EA 17 BE Ac AM 16 -1 -[address] 66 SS ti AD 20 9 00 SI 21 ON ve OL 62 20 20 DE [address] HC 1 PH EP L AR HE 50 MA N CY A MG OF TA BL CY ET NT HI AN A ME 00 05 05 2 60 30 EA 17 BE Ac TO 09 -1 -[address] 66 SS ti RI 30 SI 22 ON ve OL 73 20 20 DE OL [address] 0 PH EP TA AR HE RT MA N RA CY A TE OF 50 CY MG NT HI TA AN B A RI 37 05 05 2 30 30 EA 17 BE Ac IL 00 -1 -[address] 66 SS ti OS 00 SI 23 ON ve EC 45 20 20 DE [address] OT 2 PH EP C AR HE 20 MA N .6 CY A MG OF TA CY BL NT ET HI AN A ME 16 05 05 2 12 30 EA 17 BE Ac TO 71 -1 -[address] 66 SS ti CL 40 00 SI 24 ON ve OP 06 20 20 0 DE RA [address] VT 6 PH EP DE AR HE MA N 10 CY A MG OF TA CY BL NT ET HI AN A ME 16 10 04 3 12 30 EA 14 BE Ac TO 71 -1 -[address] 72 SS ti CL 40 SI 19 ON ve OP 06 20 20 0 DE RA [address] VT 6 PH EP DE AR HE MA N 10 CY A MG OF TA CY BL NT ET HI AN A RI 37 01 04 3 30 30 EA 16 MC Ac IL 00 -1 -[address] 00 KE ti OS 00 SI 11 VT ve EC 45 20 20 DE E 50 10 10 JR OT 2 PH C AR WI 20 MA LL .6 CY IA M MG OF F TA CY BL NT ET HI AN A ME 00 01 04 3 60 30 EA 16 MC Ac TO 09 -1 -[address] 00 KE ti RI 30 SI 13 VT ve OL 73 20 20 DE E OL 31 10 10 JR 0 PH TA AR WI RT MA LL RA CY IA TE M OF F 50 CY MG NT HI TA AN B A LI 00 02 04 3 30 30 EA 16 MC Ac SI 17 -1 -[address] 43 KE ti NO 23 SI 61 VT ve RI 75 20 20 DE E [place] 96 10 10 JR 0 PH 10 AR WI MA LL MG CY IA M TA OF F BL ET CY NT HI AN A CR 00 02 04 3 30 30 EA 16 MC Ac ES 31 -1 -[address] 43 KE ti TO 00 SI 62 VT ve R 75 20 20 DE E 10 19 10 10 JR 0 PH MG AR WI MA LL TA CY IA BL M ET OF F CY NT HI AN A AL 00 02 04 2 90 30 EA 16 MC Ac RI 78 -2 -[address] 45 KE ti AZ 11 0 SI 59 VT ve OL 07 20 20 DE E AM 90 10 10 JR 1 1 PH AR WI MG MA LL CY IA TA M BL OF F ET CY NT HI AN A 00 02 04 2 60 30 EA 16 MC Ac 59 -2 -[address] 45 KE ti 10 0 SI 60 VT ve 50 20 20 DE E 30 10 10 JR 1 PH AR [place] MA LL CY IA M OF F CY NT HI AN A TR 65 02 04 2 90 30 EA 16 MC Ac AM 16 -2 -[address] 45 KE ti AD 20 SI 61 VT ve OL 62 20 20 DE E 71 10 10 JR HC 1 PH L AR WI 50 MA LL CY IA MG M OF F TA BL CY ET NT HI AN A TR 00 04 04 1 60 15 EA 17 MC Ac IA 16 -1 -[address] 25 KE ti MC 80 SI 54 VT ve IN 00 20 20 DE E OL 31 10 10 JR ON 5 PH E AR [place] 0. MA LL 02 CY IA 5% M OF F CR EA CY M NT HI AN A 00 02 03 2 60 30 EA 16 MC Ac 59 -2 -[address] 45 KE ti 10 SI 60 VT ve 50 20 20 DE E 30 10 10 JR 1 PH AR WI MA LL CY IA M OF F CY NT HI AN A ME 16 10 03 2 12 30 EA 14 BE Ac TO 71 -1 -[address] 72 SS ti CL 40 SI 19 ON ve OP 06 20 20 0 DE RA [address] VT 6 PH EP DE AR HE MA N 10 CY A MG OF TA CY BL NT ET HI AN A RI 37 01 03 3 30 30 EA 16 MC Ac IL 00 -1 -[address] 00 KE ti OS 00 SI 11 VT ve EC 45 20 20 DE E 50 10 10 JR OT 2 PH C AR WI 20 MA LL .6 CY IA M MG OF F TA CY BL NT ET HI AN A ME 00 01 03 3 60 30 EA 16 MC Ac TO .0 ST 00 KE ti RI 30 8- 9 00 SI 13 VT ve OL 73 20 20 DE E OL 31 10 10 JR 0 PH TA AR WI RT MA LL RA CY IA TE M OF F 50 CY MG NT HI TA AN B A LI 00 02 03 3 30 30 EA 16 MC Ac SI 17 -1 -[address] 43 KE ti NO 23 SI 61 VT ve RI 75 20 20 DE E [place] 96 10 10 JR 0 PH 10 AR WI MA LL MG CY IA M TA OF F BL ET CY NT HI AN A CR 00 02 03 3 30 30 EA 16 MC Ac ES 31 -1 -[address] 43 KE ti TO 00 SI 62 VT ve R 75 20 20 DE E 10 19 10 10 JR 0 PH MG AR WI MA LL TA CY IA BL M ET OF F CY NT HI AN A AL 00 02 03 2 90 30 EA 16 MC Ac RI 78 -2 -[address] 45 KE ti AZ 11 0 SI 59 VT ve OL 07 20 20 DE E AM 90 10 10 JR 1 1 PH AR WI MG MA LL CY IA TA M BL OF F ET CY NT HI AN A TR 65 02 03 2 90 30 EA 16 MC Ac AM 16 -2 -[address] 45 KE ti AD 20 0 SI 61 VT ve OL 62 20 20 DE E 71 10 10 JR HC 1 PH L AR WI 50 MA LL CY IA MG M OF F TA BL CY ET NT HI AN A LI 00 02 02 00 30 30 EA 16 BE Ac SI 17 -1 -[address] 43 SS ti NO 23 SI 61 ON ve RI 75 20 20 [place] [address] 0 PH EP 10 AR HE MA N MG CY A TA OF BL CY ET NT HI AN A CR 00 02 02 00 30 30 EA 16 MC Ac ES 31 -1 -[address] 43 KE ti TO 00 SI 62 VT ve R 75 20 20 DE E 10 19 10 10 JR 0 PH MG AR WI MA LL TA CY IA BL M ET OF F CY NT HI AN A TR 00 10 02 02 30 10 EA 14 MC Ac IA 16 -1 -[address] 73 KE ti MC 80 7- 6 00 SI 69 VT ve IN 00 20 20 DE E OL 31 09 10 JR ON 5 PH E AR WI 0. MA LL 02 CY IA 5% M OF F CR CY EA NT M HI AN A ME 16 10 02 01 12 30 EA 14 BE Ac TO 71 -1 -[address] 72 SS ti CL 40 6 6 SI 19 ON ve OP 06 20 20 0 DE RA [address] VT 6 PH EP DE AR HE MA N 10 CY A MG OF CY TA NT BL HI ET AN A RI 37 01 02 01 30 30 EA 16 MC Ac IL 00 -1 -[address] 00 KE ti OS 00 8 SI 11 VT ve EC 45 20 20 DE E 50 10 10 JR OT 2 PH C AR WI 20 MA LL .6 CY IA M MG OF F CY TA NT BL HI ET AN A ME 00 02 01 60 30 EA 16 MC Ac TO -[address] 00 KE ti RI 30 8 SI 13 VT ve OL 73 20 20 DE E OL 31 10 10 JR 0 PH TA AR WI RT MA LL RA CY IA TE M OF F 50 CY NT MG HI AN TA A B AL 00 11 09 00 90 30 EA 16 MC Ac RI 78 -1 -[address] 00 KE ti AZ 11 SI 12 VT ve OL 07 20 20 DE E AM 90 10 10 JR 1 1 PH AR [place] MG MA LL CY IA TA M BL OF F ET CY NT HI AN A RI 37 11 09 00 30 30 EA 16 MC Ac IL 00 -1 -[address] 00 KE ti OS 00 SI 11 VT ve EC 45 20 20 DE E 50 10 10 JR OT 2 PH C AR WI 20 MA LL .6 CY IA M MG OF F CY TA NT BL HI ET AN A ME 00 11 09 00 60 30 EA 16 MC Ac TO -[address] 00 KE ti RI 30 SI 13 VT ve OL 73 20 20 DE E OL 31 10 10 JR 0 PH TA AR WI RT MA LL RA CY IA TE M OF F 50 CY NT MG HI AN TA A B LI 00 10 01 02 30 30 EA 14 BE Ac SI 17 -1 -[address] 73 SS ti NO 23 SI 72 ON ve RI 75 20 20 [place] [address] 0 PH EP 10 AR HE MA N MG CY A TA OF BL CY ET NT HI AN A CR 00 10 01 02 30 30 EA 14 BE Ac ES 31 -1 -[address] 73 SS ti TO 00 SI 70 ON ve R 75 20 20 DE [address] 0 PH EP MG AR HE MA N TA CY A BL ET OF CY NT HI AN A TR 65 01 01 00 90 30 EA 16 MC Ac AM 16 -1 -[address] 00 KE ti AD 20 8- 8- 00 SI 09 VT ve OL 62 20 20 DE E 71 10 10 JR HC 1 PH L AR WI 50 MA LL CY IA MG M OF F TA CY BL NT ET HI AN A 00 01 01 00 60 30 EA 16 MC Ac 59 -1 -[address] 00 KE ti 10 8 8 SI 10 VT ve 50 20 20 DE E 30 10 10 JR 1 PH AR WI MA LL CY IA M OF F CY NT HI AN A LI 00 10 12 01 30 30 EA 14 BE Ac SI 17 -1 -[address] 73 SS ti NO 23 SI 72 ON ve RI 75 20 20 [place] [address] 0 PH EP 10 AR HE MA N MG CY A TA OF BL CY ET NT HI AN A RI 37 10 12 02 30 30 EA 14 MC Ac IL 00 -1 -[address] 73 KE ti OS 00 SI 64 VT ve EC 45 20 20 DE E 50 09 09 JR OT 2 PH C AR WI 20 MA LL .6 CY IA M MG OF F CY TA NT BL HI ET AN A TR 65 10 12 02 90 30 EA 14 MC Ac AM 16 -1 -[address] 73 KE ti AD 20 7 SI 66 VT ve OL 62 20 20 DE E 71 09 09 JR HC 1 PH L AR WI 50 MA LL CY IA MG M OF F TA CY BL NT ET HI AN A ME 00 10 12 00 60 30 EA 14 BE Ac TO 09 -1 -[address] 73 SS ti RI 30 SI 71 ON ve OL 73 20 20 DE OL [address] 0 PH EP TA AR HE RT MA N RA CY A TE OF 50 CY NT MG HI AN TA A B 00 12 12 00 60 30 EA 15 MC Ac 59 -1 -[address] 61 KE ti 10 7 SI 52 VT ve 50 20 20 DE E 30 09 09 JR 1 PH AR WI MA LL CY IA M OF F CY NT HI AN A CR 00 10 12 01 30 30 EA 14 BE Ac ES 31 -1 -[address] 73 SS ti TO 00 7- 1- 00 SI 70 ON ve R 75 20 20 DE [address] 0 PH EP MG AR HE MA N TA CY A BL ET OF CY NT HI AN A AL 00 10 12 02 90 30 EA 14 MC Ac RI 78 -1 -[address] 73 KE ti AZ 11 7- 1- 00 SI 67 VT ve OL 07 20 20 DE E AM 90 09 09 JR 1 1 PH AR WI MG MA LL CY IA TA M BL OF F ET CY NT HI AN A TR 00 10 12 01 30 10 EA 14 MC Ac IA 16 -1 -[address] 73 KE ti MC 80 7- 7- 00 SI 69 VT ve IN 00 20 20 DE E OL 31 09 09 JR ON 5 PH E AR WI 0. MA LL 02 CY IA 5% M OF F CR CY EA NT M HI AN A 00 11 12 00 60 30 EA 15 MC Ac 59 -1 -[address] 17 KE ti 10 7- 3- 00 SI 53 VT ve 50 20 20 DE E 30 09 09 JR 1 PH AR WI MA LL CY IA M OF F CY NT HI AN A LI 00 10 12 00 30 30 EA 14 BE Ac SI 17 -1 -[address] 73 SS ti NO 23 7- 3- 00 SI 72 ON ve RI 75 20 20 [place] [address] 0 PH EP 10 AR HE MA N MG CY A TA OF BL CY ET NT HI AN A AL 00 10 12 01 90 30 EA 14 MC Ac RI 78 -1 -[address] 73 KE ti AZ 11 7- 3- 00 SI 67 VT ve OL 07 20 20 DE E AM 90 09 09 JR 1 1 PH AR WI MG MA LL CY IA TA M BL OF F ET CY NT HI AN A CR 00 10 12 00 30 30 EA 14 BE Ac ES 31 -1 -[address] 73 SS ti TO 00 7- 3- 00 SI 70 ON ve R 75 20 20 DE [address] 0 PH EP MG AR HE MA N TA CY A BL ET OF CY NT HI AN A RI 37 10 12 01 30 30 EA 14 MC Ac IL 00 -1 -[address] 73 KE ti OS 00 7- 3- 00 SI 64 VT ve EC 45 20 20 DE E 50 09 09 JR OT 2 PH C AR WI 20 MA LL .6 CY IA M MG OF F CY TA NT BL HI ET AN A TR 65 10 12 01 90 30 EA 14 MC Ac AM 16 -1 -[address] 73 KE ti AD 20 7- 3- 00 SI 66 VT ve OL 62 20 20 DE E 71 09 09 JR HC 1 PH L AR WI 50 MA LL CY IA MG M OF F TA CY BL NT ET HI AN A AL 00 10 11 00 90 30 EA 14 MC Ac RI 78 -1 -[address] 73 KE ti AZ 11 7- 5- 00 SI 67 VT ve OL 07 20 20 DE E AM 90 09 09 JR 1 1 PH AR WI MG MA LL CY IA TA M BL OF F ET CY NT HI AN A TR 65 10 11 00 90 30 EA 14 MC Ac AM 16 -1 -[address] 73 KE ti AD 20 7- 5- 00 SI 66 VT ve OL 62 20 20 DE E 71 09 09 JR HC 1 PH L AR WI 50 MA LL CY IA MG M OF F TA CY BL NT ET HI AN A RI 37 10 11 00 30 30 EA 14 MC Ac IL 00 -1 -[address] 73 KE ti OS 00 7- 5- 00 SI 64 VT ve EC 45 20 20 DE E 50 09 09 JR OT 2 PH C AR WI 20 MA LL .6 CY IA M MG OF F CY TA NT BL HI ET AN A TR 00 10 11 00 30 10 EA 14 MC Ac IA 16 -1 -[address] 73 KE ti MC 80 7- 5- 00 SI 69 VT ve IN 00 20 20 DE E OL 31 09 09 JR ON 5 PH E AR WI 0. MA LL 02 CY IA 5% M OF F CR CY EA NT M HI AN A 00 10 11 00 60 30 EA 14 MC Ac 59 -1 -[address] 73 KE ti 10 7- 5- 00 SI 65 VT ve 50 20 20 DE E 30 09 09 JR 1 PH AR WI MA LL CY IA M OF F CY NT HI AN A DO 53 10 11 00 20 10 EA 14 MC Ac XY 48 -1 -[address] 73 KE ti CY 90 7- 5- 00 SI 75 VT ve CL 11 20 20 DE E IN 90 09 09 JR E 5 PH HY AR WI CL MA LL AT CY IA E M 10 OF F 0 CY MG NT HI CA AN P A ME 16 10 10 00 12 30 EA 14 BE Ac TO 71 -1 -[address] 72 SS ti CL 40 6- 2- 00 SI 19 ON ve OP 06 20 20 0 DE RA [address] VT 6 PH EP DE AR HE MA N 10 CY A MG OF CY TA NT BL HI ET AN A LI 00 05 10 05 30 30 EA 12 BE Ac SI 17 -1 -[address] 81 SS ti NO 23 9- 2- 00 SI 07 ON ve RI 75 20 20 DE [place] [address] 0 PH EP 10 AR HE MA N MG CY A TA OF BL CY ET NT HI AN A CR 00 08 10 02 30 30 EA 13 BE Ac ES 31 -1 -[address] 86 SS ti TO 00 7- 2- 00 SI 91 ON ve R 75 20 20 DE [address] 0 PH EP MG AR HE MA N TA CY A BL ET OF CY NT HI AN A ME 00 05 10 04 60 30 EA 12 BE Ac TO 09 -1 -[address] 81 SS ti RI 30 9- 2- 00 SI 04 ON ve OL 73 20 20 DE OL [address] 0 PH EP TA AR HE RT MA N RA CY A TE OF 50 CY NT MG HI AN TA A B CR 00 08 09 01 30 30 EA 13 BE Ac ES 31 -1 -[address] 86 SS ti TO 00 7- 4- 00 SI 91 ON ve R 75 20 20 DE [address] 0 PH EP MG AR HE MA N TA CY A BL ET OF CY NT HI AN A LI 00 05 09 04 30 30 EA 12 BE Ac SI 17 -1 -[address] 81 SS ti NO 23 9- 4- 00 SI 07 ON ve RI 75 20 20 DE [place] [address] 0 PH EP 10 AR HE MA N MG CY A TA OF BL CY ET NT HI AN A RI 37 06 09 03 30 30 EA 13 MC Ac IL 00 -1 -[address] 20 KE ti OS 00 9- 4- 00 SI 40 VT ve EC 45 20 20 DE E 50 09 09 JR OT 2 PH C AR WI 20 MA LL .6 CY IA M MG OF F CY TA NT BL HI ET AN A 00 09 09 00 60 30 EA 14 MC Ac 59 -1 -[address] 29 KE ti 10 7- 4- 00 SI 72 VT ve 50 20 20 DE E 30 09 09 JR 1 PH AR WI MA LL CY IA M OF F CY NT HI AN A TR 00 09 09 00 15 5 EA 14 MC Ac IA 16 -1 -[address] 29 KE ti MC 80 7- 4- 00 SI 74 VT ve IN 00 20 20 DE E OL 31 09 09 JR ON 5 PH E AR [place] 0. MA LL 02 CY IA 5% M OF F CR CY EA NT M HI AN A AL 00 09 09 00 90 30 EA 14 MC Ac RI 78 -1 -[address] 29 KE ti AZ 11 7- 4- 00 SI 71 VT ve OL 07 20 20 DE E AM 90 09 09 JR 1 1 PH AR WI MG MA LL CY IA TA M BL OF F ET CY NT HI AN A ME 00 05 09 03 60 30 EA 12 BE Ac TO 09 -1 -[address] 81 SS ti RI 30 9- 4- 00 SI 04 ON ve OL 73 20 20 DE OL [address] 0 PH EP TA AR HE RT MA N RA CY A TE OF 50 CY NT MG HI AN TA A B ME 16 05 09 03 12 30 EA 12 BE Ac TO 71 -1 -[address] 81 SS ti CL 40 9- 4- 00 SI 06 ON ve OP 06 20 20 0 DE RA [address] VT 6 PH EP DE AR HE MA N 10 CY A MG OF CY TA NT BL HI ET AN A TR 65 09 09 00 90 30 EA 14 MC Ac AM 16 -1 -[address] 29 KE ti AD 20 7- 4- 00 SI 73 VT ve OL 62 20 20 DE E 71 09 09 JR HC 1 PH L AR WI 50 MA LL CY IA MG M OF F TA CY BL NT ET HI AN A RI 37 06 08 02 30 30 EA 13 MC Ac IL 00 -1 -[address] 20 KE ti OS 00 9- 7- 00 SI 40 VT ve EC 45 20 20 DE E 50 09 09 JR OT 2 PH C AR WI 20 MA LL .6 CY IA M MG OF F CY TA NT BL HI ET AN A ME 16 05 08 02 12 30 EA 12 BE Ac TO 71 -1 -[address] 81 SS ti CL 40 9- 7- 00 SI 06 ON ve OP 06 20 20 0 DE RA [address] VT 6 PH EP DE AR HE MA N 10 CY A MG OF CY TA NT BL HI ET AN A TR 65 08 08 00 90 30 EA 13 BE Ac AM 16 -1 -[address] 86 SS ti AD 20 7- 7- 00 SI 88 ON ve OL 62 20 20 DE [address] HC 1 PH EP L AR HE 50 MA N CY A MG OF TA CY BL NT ET HI AN A ME 00 05 08 02 60 30 EA 12 BE Ac TO 09 -1 -[address] 81 SS ti RI 30 9- 7- 00 SI 04 ON ve OL 73 20 20 DE OL [address] 0 PH EP TA AR HE RT MA N RA CY A TE OF 50 CY NT MG HI AN TA A B AL 00 08 08 00 90 30 EA 13 MC Ac RI 78 -1 -[address] 86 KE ti AZ 11 7- 7- 00 SI 90 VT ve OL 07 20 20 DE E AM 90 09 09 JR 1 1 PH AR WI MG MA LL CY IA TA M BL OF F ET CY NT HI AN A 00 08 08 00 60 30 EA 13 MC Ac 59 -1 -[address] 86 KE ti 10 7- 7- 00 SI 89 VT ve 50 20 20 DE E 30 09 09 JR 1 PH AR WI MA LL CY IA M OF F CY NT HI AN A LI 00 05 08 03 30 30 EA 12 BE Ac SI 17 -1 -[address] 81 SS ti NO 23 9- 7- 00 SI 07 ON ve RI 75 20 20 [place] [address] 0 PH EP 10 AR HE MA N MG CY A TA OF BL CY ET NT HI AN A CR 00 08 08 00 30 30 EA 13 BE Ac ES 31 -1 -[address] 86 SS ti TO 00 7 7- 00 SI 91 ON ve R 75 20 20 DE [address] 0 PH EP MG AR HE MA N TA CY A BL ET OF CY NT HI AN A TR 00 08 08 00 15 5 EA 13 BE Ac IA 16 -0 -[address] 71 SS ti MC 80 3- 3- 00 SI 31 ON ve IN 00 20 20 DE OL [address] ON 5 PH EP E AR HE 0. MA N 02 CY A 5% OF CR CY EA NT M HI AN A 00 07 07 00 60 30 EA 13 MC Ac 59 -1 -[address] 53 KE ti 10 7- 0- 00 SI 34 VT ve 50 20 20 DE E 30 09 09 JR 1 PH AR WI MA LL CY IA M OF F CY NT HI AN A CR 00 05 07 02 30 30 EA 12 BE Ac ES 31 -1 -[address] 81 SS ti TO 00 9- 0- 00 SI 08 ON ve R 75 20 20 DE [address] 0 PH EP MG AR HE MA N TA CY A BL ET OF CY NT HI AN A TR 65 07 07 00 90 30 EA 13 MC Ac AM 16 -1 -[address] 53 KE ti AD 20 7- 0- 00 SI 35 VT ve OL 62 20 20 DE E 71 09 09 JR HC 1 PH L AR WI 50 MA LL CY IA MG M OF F TA CY BL NT ET HI AN A LI 00 05 07 02 30 30 EA 12 BE Ac SI 17 -1 -[address] 81 SS ti NO 23 9- 0- 00 SI 07 ON ve RI 75 20 20 [place] [address] 0 PH EP 10 AR HE MA N MG CY A TA OF BL CY ET NT HI AN A AL 00 07 07 00 90 30 EA 13 MC Ac RI 78 -1 -[address] 53 KE ti AZ 11 7- 0- 00 SI 33 VT ve OL 07 20 20 DE E AM 90 09 09 JR 1 1 PH AR WI MG MA LL CY IA TA M BL OF F ET CY NT HI AN A ME 00 05 07 01 60 30 EA 12 BE Ac TO 09 -1 -[address] 81 SS ti RI 30 9- 0- 00 SI 04 ON ve OL 73 20 20 DE OL [address] 0 PH EP TA AR HE RT MA N RA CY A TE OF 50 CY NT MG HI AN TA A B RI 37 06 07 01 30 30 EA 13 MC Ac IL 00 -1 -[address] 20 KE ti OS 00 9- 0- 00 SI 40 VT ve EC 45 20 20 DE E 50 09 09 JR OT 2 PH C AR WI 20 MA LL .6 CY IA M MG OF F CY TA NT BL HI ET AN A ME 16 05 07 01 12 30 EA 12 BE Ac TO 71 -1 -[address] 81 SS ti CL 40 9- 0- 00 SI 06 ON ve OP 06 20 20 0 DE RA [address] VT 6 PH EP DE AR HE MA N 10 CY A MG OF CY TA NT BL HI ET AN A CR 00 05 07 01 30 30 EA 12 BE Ac ES 31 -1 -[address] 81 SS ti TO 00 9- 2- 00 SI 08 ON ve R 75 20 20 DE [address] 0 PH EP MG AR HE MA N TA CY A BL ET OF CY NT HI AN A TR 60 06 07 00 90 30 EA 13 MC Ac AM 50 -1 -[address] 20 KE ti AD 50 9- 2- 00 SI 39 VT ve OL 17 20 20 DE E 10 09 09 JR HC 8 PH L AR WI 50 MA LL CY IA MG M OF F TA CY BL NT ET HI AN A LI 00 05 07 01 30 30 EA 12 BE Ac SI 17 -1 -[address] 81 SS ti NO 23 9- 2- 00 SI 07 ON ve RI 75 20 20 [place] [address] 0 PH EP 10 AR HE MA N MG CY A TA OF BL CY ET NT HI AN A 00 06 07 00 60 30 EA 13 MC Ac 59 -1 -[address] 20 KE ti 10 9- 2- 00 SI 38 VT ve 50 20 20 DE E 30 09 09 JR 1 PH AR WI MA LL CY IA M OF F CY NT HI AN A RI 37 06 07 00 30 30 EA 13 MC Ac IL 00 -1 -[address] 20 KE ti OS 00 9 2- 00 SI 40 VT ve EC 45 20 20 DE E 50 09 09 JR OT 2 PH C AR WI 20 MA LL .6 CY IA M MG OF F CY TA NT BL HI ET AN A ME 00 05 07 00 60 30 EA 12 BE Ac TO 09 -1 -[address] 81 SS ti RI 30 9 2- 00 SI 04 ON ve OL 73 20 20 DE OL [address] 0 PH EP TA AR HE RT MA N RA CY A TE OF 50 CY NT MG HI AN TA A B AL 00 06 07 00 90 30 EA 13 MC Ac RI 78 -1 -[address] 20 KE ti AZ 11 9 2- 00 SI 37 VT ve OL 07 20 20 DE E AM 90 09 09 JR 1 1 PH AR WI MG MA LL CY IA TA M BL OF F ET CY NT HI AN A DI 00 06 06 00 60 30 EA 13 MA Ac CL 78 -0 -[address] 05 IR ti OF 11 8 8 00 SI 09 ve EN 78 20 20 DE SC AC 90 09 09 OT 1 PH T SO AR D D MA EC CY 75 OF CY MG NT HI TA AN B A CR 00 05 06 00 30 30 EA 12 BE Ac ES 31 -1 -[address] 81 SS ti TO 00 4 00 SI 08 ON ve R 75 20 20 DE [address] 0 PH EP MG AR HE MA N TA CY A BL ET OF CY NT HI AN A 00 05 06 00 60 30 EA 12 MC Ac 59 -1 -[address] 80 KE ti 10 9- 4- 00 SI 88 VT ve 50 20 20 DE E 30 09 09 JR 1 PH AR WI MA LL CY IA M OF F CY NT HI AN A RI 37 02 06 03 30 30 EA 11 MC Ac IL 00 -1 -[address] 51 KE ti OS 00 7- 4- 00 SI 23 VT ve EC 45 20 20 DE E 50 09 09 JR OT 2 PH C AR WI 20 MA LL .6 CY IA M MG OF F CY TA NT BL HI ET AN A ME 00 02 06 03 60 30 EA 11 TORRES Ac TO 09 -1 -[address] 51 RV ti RI 30 7- 4- 00 SI 57 EY ve OL 73 20 20 DE OL 31 09 09 LORRIE 0 PH DI TA AR RT MA RA CY TE OF 50 CY NT MG HI AN TA A B AL 00 05 06 00 90 30 EA 12 MC Ac RI 78 -1 -[address] 80 KE ti AZ 11 9- 4- 00 SI 89 VT ve OL 07 20 20 DE E AM 90 09 09 JR 1 1 PH AR WI MG MA LL CY IA TA M BL OF F ET CY NT HI AN A TR 00 05 06 00 15 5 EA 12 BE Ac IA 16 -1 -[address] 81 SS ti MC 80 9- 4- 00 SI 03 ON ve IN 00 20 20 DE OL [address] ON 5 PH EP E AR HE 0. MA N 02 CY A 5% OF CR CY EA NT M HI AN A TR 60 05 06 00 90 30 EA 12 BE Ac AM 50 -1 -[address] 81 SS ti AD 50 9- 4- 00 SI 02 ON ve OL 17 20 20 [address] HC 8 PH EP L AR HE 50 MA N CY A MG OF TA CY BL NT ET HI AN A ME 16 05 06 00 12 30 EA 12 BE Ac TO 71 -1 -[address] 81 SS ti CL 40 9- 4- 00 SI 06 ON ve OP 06 20 20 0 DE RA [address] VT 6 PH EP DE AR HE MA N 10 CY A MG OF CY TA NT BL HI ET AN A LI 00 05 06 00 30 30 EA 12 BE Ac SI 17 -1 -[address] 81 SS ti NO 23 9- 4- 00 SI 07 ON ve RI 75 20 20 DE [place] [address] 0 PH EP 10 AR HE MA N MG CY A TA OF BL CY ET NT HI AN A 00 04 05 00 60 30 EA 12 BE Ac 59 -1 -[address] 40 SS ti 10 8- 7- 00 SI 13 ON ve 50 20 20 DE [address] 1 PH EP AR HE MA N CY A OF CY NT HI AN A AL 00 04 05 00 90 30 EA 12 BE Ac RI 78 -1 -[address] 39 SS ti AZ 11 8- 7- 00 SI 75 ON ve OL 07 20 20 DE AM [address] 1 1 PH EP AR HE MG MA N CY A TA BL OF ET CY NT HI AN A TR 60 04 05 00 90 30 EA 12 BE Ac AM 50 -1 -[address] 39 SS ti AD 50 8- 7- 00 SI 74 ON ve OL 17 20 20 DE [address] HC 8 PH EP L AR HE 50 MA N CY A MG OF TA CY BL NT ET HI AN A RI 37 02 04 02 30 30 EA 11 MC Ac IL 00 -1 -[address] 51 KE ti OS 00 7- 3- 00 SI 23 VT ve EC 45 20 20 DE E 50 09 09 JR OT 2 PH C AR WI 20 MA LL .6 CY IA M MG OF F CY TA NT BL HI ET AN A DI 00 02 04 02 12 30 EA 11 JEANNINE Ac CY 59 -1 -[address] 54 SC ti CL 10 9- 3- 00 SI 03 H ve OM 79 20 20 0 DE AN IN 50 09 09 TO E 1 PH NI 20 AR O MA MG CY TA OF BL CY ET NT HI AN A ME 00 02 04 02 60 30 EA 11 TORRES Ac TO 09 -1 -[address] 51 RV ti RI 30 7- 3- 00 SI 57 EY ve OL 73 20 20 DE OL 31 09 09 LORRIE 0 PH DI TA AR RT MA RA CY TE OF 50 CY NT MG HI AN TA A B TR 00 04 04 00 15 5 EA 12 TORRES Ac IA 16 -0 -[address] 18 RV ti MC 80 3- 9- 00 SI 69 EY ve IN 00 20 20 DE OL 31 09 09 LORRIE ON 5 PH DI E AR 0. MA 02 CY 5% OF CR CY EA NT M HI AN A RI 37 02 03 01 30 30 EA 11 MC Ac IL 00 -1 -[address] 51 KE ti OS 00 7- 6- 00 SI 23 VT ve EC 45 20 20 DE E 50 09 09 JR OT 2 PH C AR WI 20 MA LL .6 CY IA M MG OF F CY TA NT BL HI ET AN A ME 00 02 03 01 60 30 EA 11 TORRES Ac TO 09 -1 -[address] 51 RV ti RI 30 7- 6- 00 SI 57 EY ve OL 73 20 20 DE OL 31 09 09 LORRIE 0 PH DI TA AR RT MA RA CY TE OF 50 CY NT MG HI AN TA A B 00 03 03 00 60 30 EA 11 BE Ac 59 -1 -[address] 96 SS ti 10 9- 6- 00 SI 92 ON ve 50 20 20 DE [address] 1 PH EP AR HE MA N CY A OF CY NT HI AN A DI 00 02 03 01 12 30 EA 11 JEANNINE Ac CY 59 -1 -[address] 54 SC ti CL 10 9- 6- 00 SI 03 H ve OM 79 20 20 0 DE AN IN 50 09 09 TO E 1 PH NI 20 AR O MA MG CY TA OF BL CY ET NT HI AN A TR 60 03 03 00 90 30 EA 11 TORRES Ac AM 50 -1 -[address] 96 RV ti AD 50 9- 6- 00 SI 90 EY ve OL 17 20 20 DE 10 09 09 LORRIE HC 8 PH DI L AR 50 MA CY MG OF TA CY BL NT ET HI AN A AL 00 03 03 00 90 30 EA 11 MC Ac RI 78 -1 -[address] 96 KE ti AZ 11 9- 6- 00 SI 91 VT ve OL 07 20 20 DE E AM 90 09 09 JR 1 1 PH AR WI MG MA LL CY IA TA M BL OF F ET CY NT HI AN A ME 00 02 03 00 21 6 EA 11 GA Ac TH 78 -2 -[address] 58 IN ti YL 15 3- 2- 00 SI 95 EY ve RI 02 20 20 DE ED 20 09 09 VT NI 7 PH CH SO AR AE LO MA L NE CY S 4 OF MG CY NT DO HI SE AN PK A 60 02 03 00 20 10 EA 11 GA Ac 50 -2 -[address] 58 IN ti 51 3- 2- 00 SI 96 EY ve 30 20 20 DE 90 09 09 VT 1 PH CH AR AE MA L CY S OF CY NT HI AN A 60 02 03 01 20 10 EA 11 GA Ac 50 -2 -[address] 58 IN ti 51 3- 2- 00 SI 96 EY ve 30 20 20 DE 90 09 09 VT 1 PH CH AR AE MA L CY S OF CY NT HI AN A RI 37 02 02 00 30 30 EA 11 JEANNINE Ac IL 00 -1 -[address] 51 SC ti OS 00 7- 6- 00 SI 23 H ve EC 45 20 20 DE AN 50 09 09 TO OT 2 PH NI C AR O 20 MA .6 CY MG OF CY TA NT BL HI ET AN A AL 00 02 02 00 90 30 EA 11 MC Ac RI 78 -1 -[address] 51 KE ti AZ 11 7- 6- 00 SI 22 VT ve OL 07 20 20 DE E AM 90 09 09 JR 1 1 PH AR WI MG MA LL CY IA TA M BL OF F ET CY NT HI AN A TR 60 02 02 00 90 30 EA 11 TORRES Ac AM 50 -1 -[address] 52 RV ti AD 50 7- 6- 00 SI 48 EY ve OL 17 20 20 DE 10 09 09 LORRIE HC 8 PH DI L AR 50 MA CY MG OF TA CY BL NT ET HI AN A 00 02 02 00 60 30 EA 11 TORRES Ac 59 -1 -[address] 51 RV ti 10 7- 6- 00 SI 21 EY ve 50 20 20 DE 30 09 09 LOR[place]E 1 PH DI AR MA CY OF CY NT HI AN A DI 00 02 02 00 12 30 EA 11 JEANNINE Ac CY 59 -1 -[address] 54 SC ti CL 10 9- 6- 00 SI 03 H ve OM 79 20 20 0 DE AN IN 50 09 09 TO E 1 PH NI 20 AR O MA MG CY TA OF BL CY ET NT HI AN A ME 00 02 02 00 60 30 EA 11 TORRES Ac TO 09 -1 -[address] 51 RV ti RI 30 7- 6- 00 SI 57 EY ve OL 73 20 20 DE OL 31 09 09 LORRIE 0 PH DI TA AR RT MA RA CY TE OF 50 CY NT MG HI AN TA A B ME 00 11 01 60 30 EA 10 BE Ac TO 09 -1 -[address] 31 SS ti RI 30 7- 0- 00 SI 49 ON ve OL 73 20 20 DE OL [address] 0 PH EP TA AR HE RT MA N RA CY A TE OF 50 CY NT MG HI AN TA A B TR 60 01 00 90 30 EA 11 TORRES Ac AM 50 -1 -[address] 12 RV ti AD 50 6- 0- 00 SI 16 EY ve OL 17 20 20 DE 10 09 09 LORRIE HC 8 PH DI L AR 50 MA CY MG OF TA CY BL NT ET HI AN A AL 00 11 01 02 90 30 EA 10 MC Ac RI 78 -1 -[address] 31 KE ti AZ 11 7- 0- 00 SI 41 VT ve OL 07 20 20 DE E AM 90 08 09 JR 1 1 PH AR WI MG MA LL CY IA TA M BL OF F ET CY NT HI AN A DI 00 09 01 02 12 30 EA 99 JEANNINE Ac CY 59 -2 -[address] 60 SC ti CL 10 4- 0- 00 SI 05 H ve OM 79 20 20 0 DE AN IN 50 08 09 TO E 1 PH NI 20 AR O MA MG CY TA OF BL CY ET NT HI AN A RI 37 11 01 01 30 30 EA 10 JEANNINE Ac IL 00 -1 -[address] 31 SC ti OS 00 7- 0- 00 SI 57 H ve EC 45 20 20 DE AN 50 08 09 TO OT 2 PH NI C AR O 20 MA .6 CY MG OF CY TA NT BL HI ET AN A TR 00 01 01 00 15 5 EA 11 TORRES Ac IA 16 -1 -[address] 08 RV ti MC 80 4- 0- 00 SI 92 EY ve IN 00 20 20 DE OL 31 09 09 LORRIE ON 5 PH DI E AR 0. MA 02 CY 5% OF CR CY EA NT M HI AN A 00 01 01 00 60 30 EA 11 TORRES Ac 59 -1 -[address] 08 RV ti 10 4- 0- 00 SI 93 EY ve 50 20 20 DE 30 09 09 L[place]RIE 1 PH DI AR MA CY OF CY NT HI AN A LI 00 11 01 00 30 30 EA 10 MC Ac SI 17 -1 -[address] 31 KE ti NO 23 7- 1- 00 SI 48 VT ve RI 75 20 20 DE E IL 96 08 09 JR 0 PH 10 AR WI MA LL MG CY IA M TA OF F BL CY ET NT HI AN A AL 00 11 01 01 90 30 EA 10 MC Ac RI 78 -1 -[address] 31 KE ti AZ 11 7- 1- 00 SI 41 VT ve OL 07 20 20 DE E AM 90 08 09 JR 1 1 PH AR WI MG MA LL CY IA TA M BL OF F ET CY NT HI AN A TR 60 12 01 00 90 30 EA 10 BE Ac AM 50 -1 -[address] 72 SS ti AD 50 7- 1- 00 SI 08 ON ve OL 17 20 20 DE [address] HC 8 PH EP L AR HE 50 MA N CY A MG OF TA CY BL NT ET HI AN A ME 00 11 01 00 60 30 EA 10 BE Ac TO 09 -1 -[address] 31 SS ti RI 30 7- 1- 00 SI 49 ON ve OL 73 20 20 DE OL [address] 0 PH EP TA AR HE RT MA N RA CY A TE OF 50 CY NT MG HI AN TA A B RI 37 11 01 00 30 30 EA 10 JEANNINE Ac IL 00 -1 -[address] 31 SC ti OS 00 7- 1- 00 SI 57 H ve EC 45 20 20 DE AN 50 08 09 TO OT 2 PH NI C AR O 20 MA .6 CY MG OF CY TA NT BL HI ET AN A 00 11 12 00 60 30 EA 10 MC Ac 59 -1 -[address] 31 KE ti 10 7- 8- 00 SI 55 VT ve 50 20 20 DE E 30 08 08 JR 1 PH AR WI MA LL CY IA M OF F CY NT HI AN A TR 60 11 12 00 90 30 EA 10 BE Ac AM 50 -1 -[address] 31 SS ti AD 50 7- 4- 00 SI 47 ON ve OL 17 20 20 DE [address] HC 8 PH EP L AR HE 50 MA N CY A MG OF TA CY BL NT ET HI AN A RI 37 11 12 00 30 30 EA 10 JEANNINE Ac IL 00 -1 -[address] 29 SC ti OS 00 5- 4- 00 SI 21 H ve EC 45 20 20 DE AN 50 08 08 TO OT 2 PH NI C AR O 20 MA .6 CY MG OF CY TA NT BL HI ET AN A AL 00 11 12 00 90 30 EA 10 MC Ac RI 78 -1 -[address] 31 KE ti AZ 11 7- 4- 00 SI 41 VT ve OL 07 20 20 DE E AM 90 08 08 JR 1 1 PH AR WI MG MA LL CY IA TA M BL OF F ET CY NT HI AN A AL 00 11 11 00 12 4 EA 10 TORRES Ac RI 78 -1 -[address] 27 RV ti AZ 11 4- 0- 00 SI 70 EY ve OL 07 20 20 DE AM 90 08 08 LORRIE 1 1 PH DI AR MG MA CY TA BL OF ET CY NT HI AN A 00 11 11 00 60 30 EA 10 BE Ac 59 -1 -[address] 23 SS ti 10 1- 0- 00 SI 10 ON ve 50 20 20 DE [address] 1 PH EP AR HE MA N CY A OF CY NT HI AN A TR 60 11 11 00 12 4 EA 10 TORRES Ac AM 50 -1 -[address] 27 RV ti AD 50 4- 0- 00 SI 69 EY ve OL 17 20 20 DE 10 08 08 LORRIE HC 8 PH DI L AR 50 MA CY MG OF TA CY BL NT ET HI AN A DI 00 09 11 01 12 30 EA 99 JEANNINE Ac CY 59 -2 -[address] 60 SC ti CL 10 4- 0- 00 SI 05 H ve OM 79 20 20 0 DE AN IN 50 08 08 TO E 1 PH NI 20 AR O MA MG CY TA OF BL CY ET NT HI AN A ME 00 11 11 00 60 30 EA 10 MC Ac TO 09 -1 -[address] 27 KE ti RI 30 4- 0- 00 SI 68 VT ve OL 73 20 20 DE E OL 31 08 08 JR 0 PH TA AR WI RT MA LL RA CY IA TE M OF F 50 CY NT MG HI AN TA A B LI 00 11 11 00 30 30 EA 10 MC Ac SI 17 -1 -[address] 27 KE ti NO 23 4- 0- 00 SI 66 VT ve RI 75 20 20 DE E IL 96 08 08 JR 0 PH 10 AR WI MA LL MG CY IA M TA OF F BL CY ET NT HI AN A TR 60 10 10 00 90 30 EA 99 No Ac AM 50 -1 -[address] 84 t ti AD 50 3- 3- 00 SI 90 Av ve OL 17 20 20 DE ai 10 08 08 la HC 8 PH bl L AR e 50 MA CY MG OF TA CY BL NT ET HI AN A 00 10 10 00 60 30 EA 99 No Ac 59 -1 -[address] 81 t ti 10 0- 3- 00 SI 68 Av ve 50 20 20 DE ai 30 08 08 la 1 PH bl AR e MA CY OF CY NT HI AN A LI 00 10 10 00 30 30 EA 99 No Ac SI 17 -1 -[address] 84 t ti NO 23 3- 3- 00 SI 91 Av ve RI 75 20 20 DE ai IL 96 08 08 la 0 PH bl 10 AR e MA MG CY TA OF BL CY ET NT HI AN A AL 00 10 10 00 90 30 EA 99 No Ac RI 78 -1 -[address] 84 t ti AZ 11 3- 3- 00 SI 89 Av ve OL 07 20 20 DE ai AM 90 08 08 la 1 1 PH bl AR e MG MA CY TA BL OF ET CY NT HI AN A ME 00 10 10 00 60 30 EA 99 No Ac TO 09 -1 -[address] 84 t ti RI 30 3- 3- 00 SI 92 Av ve OL 73 20 20 DE ai OL 31 08 08 la 0 PH bl TA AR e RT MA RA CY TE OF 50 CY NT MG HI AN TA A B DI 00 09 10 00 12 30 EA 99 No Ac CY 59 -2 -[address] 60 t ti CL 10 4- 9- 00 SI 05 Av ve OM 79 20 20 0 DE ai IN 50 08 08 la E 1 PH bl 20 AR e MA MG CY TA OF BL CY ET NT HI AN A TR 60 09 09 00 90 30 EA 99 No Ac AM 50 -1 -[address] 46 t ti AD 50 3- 6- 00 SI 92 Av ve OL 17 20 20 DE ai 10 08 08 la HC 8 PH bl L AR e 50 MA CY MG OF TA CY BL NT ET HI AN A LI 00 06 09 03 30 30 EA 98 No Ac SI 17 -1 -[address] 35 t ti NO 23 2- 6- 00 SI 22 Av ve RI 75 20 20 DE ai IL 96 08 08 la 0 PH bl 10 AR e MA MG CY TA OF BL CY ET NT HI AN A 00 09 09 00 60 30 EA 99 No Ac 59 -0 -[address] 40 t ti 10 8- 6- 00 SI 06 Av ve 50 20 20 DE ai 30 08 08 la 1 PH bl AR e MA CY OF CY NT HI AN A RI 37 07 09 01 30 30 EA 98 No Ac IL 00 -3 -[address] 89 t ti OS 00 0- 6- 00 SI 50 Av ve EC 45 20 20 DE ai 50 08 08 la OT 2 PH bl C AR e 20 MA .6 CY MG OF CY TA NT BL HI ET AN A ME 00 06 09 03 60 30 EA 98 No Ac TO 09 -1 -[address] 35 t ti RI 30 2- 6- 00 SI 19 Av ve OL 73 20 20 DE ai OL 31 08 08 la 0 PH bl TA AR e RT MA RA CY TE OF 50 CY NT MG HI AN TA A B 58 08 09 01 60 30 EA 99 No Ac 17 -1 -[address] 04 t ti 70 1- 6- 00 SI 87 Av ve 30 20 20 DE ai 30 08 08 la 4 PH bl AR e MA CY OF CY NT HI AN A AL 00 09 09 00 90 30 EA 99 No Ac RI 78 -1 -[address] 46 t ti AZ 11 3- 6- 00 SI 93 Av ve OL 07 20 20 DE ai AM 90 08 08 la 1 1 PH bl AR e MG MA CY TA BL OF ET CY NT HI AN A ME 16 06 08 01 12 30 EA 98 No Ac TO 71 -1 -[address] 35 t ti CL 40 2- 8- 00 SI 24 Av ve OP 06 20 20 0 DE ai RA 20 08 08 la VT 6 PH bl DE AR e MA 10 CY MG OF CY TA NT BL HI ET AN A 58 08 08 00 60 30 EA 99 No Ac 17 -1 -[address] 04 t ti 70 1- 8- 00 SI 87 Av ve 30 20 20 DE ai 30 08 08 la 4 PH bl AR e MA CY OF CY NT HI AN A AL 00 08 08 00 90 30 EA 99 No Ac RI 78 -1 -[address] 04 t ti AZ 11 1- 8- 00 SI 90 Av ve OL 07 20 20 DE ai AM 90 08 08 la 1 1 PH bl AR e MG MA CY TA BL OF ET CY NT HI AN A TR 60 08 08 00 90 30 EA 99 No Ac AM 50 -1 -[address] 04 t ti AD 50 1- 8- 00 SI 88 Av ve OL 17 20 20 DE ai 10 08 08 la HC 8 PH bl L AR e 50 MA CY MG OF TA CY BL NT ET HI AN A ME 00 06 08 02 60 30 EA 98 No Ac TO 09 -1 -[address] 35 t ti RI 30 2- 8- 00 SI 19 Av ve OL 73 20 20 DE ai OL 31 08 08 la 0 PH bl TA AR e RT MA RA CY TE OF 50 CY NT MG HI AN TA A B LI 00 06 08 02 30 30 EA 98 No Ac SI 17 -1 -[address] 35 t ti NO 23 2- 8- 00 SI 22 Av ve RI 75 20 20 DE ai [place] 96 08 08 la 0 PH bl 10 AR e MA MG CY TA OF BL CY ET NT HI AN A PO 51 07 08 00 52 30 EA 98 No Ac LY 99 -3 -[address] 89 t ti ET 10 0- 4- 00 SI 66 Av ve HY 45 20 20 0 DE ai LE 75 08 08 la NE 7 PH bl AR e GL MA YC CY OL OF 33 CY 50 NT HI PO AN WD A 00 08 08 00 60 30 EA 99 No Ac 59 -0 -[address] 01 t ti 10 8- 4- 00 SI 09 Av ve 50 20 20 DE ai 30 08 08 la 1 PH bl AR e MA CY OF CY NT HI AN A RI 37 07 08 00 30 30 EA 98 No Ac IL 00 -3 -[address] 89 t ti OS 00 0- 4- 00 SI 50 Av ve EC 45 20 20 DE ai 50 08 08 la OT 2 PH bl C AR e 20 MA .6 CY MG OF CY TA NT BL HI ET AN A AL 00 07 08 00 90 30 EA 98 No Ac RI 78 -1 -[address] 69 t ti AZ 11 2- 1- 00 SI 60 Av ve OL 07 20 20 DE ai AM 90 08 08 la 1 1 PH bl AR e MG MA CY TA BL OF ET CY NT HI AN A TR 60 07 08 00 90 30 EA 98 No Ac AM 50 -1 -[address] 69 t ti AD 50 2- 1- 00 SI 59 Av ve OL 17 20 20 DE ai 10 08 08 la HC 8 PH bl L AR e 50 MA CY MG OF TA CY BL NT ET HI AN A 58 07 08 00 60 30 EA 98 No Ac 17 -1 -[address] 69 t ti 70 2- 1- 00 SI 61 Av ve 30 20 20 DE ai 30 08 08 la 4 PH bl AR e MA CY OF CY NT HI AN A LI 00 06 07 01 30 30 EA 98 No Ac SI 17 -1 -[address] 35 t ti NO 23 2- 7- 00 SI 22 Av ve RI 75 20 20 DE ai [place] 96 08 08 la 0 PH bl 10 AR e MA MG CY TA OF BL CY ET NT HI AN A ME 00 06 07 01 60 30 EA 98 No Ac TO 09 -1 -[address] 35 t ti RI 30 2- 7- 00 SI 19 Av ve OL 73 20 20 DE ai OL 31 08 08 la 0 PH bl TA AR e RT MA RA CY TE OF 50 CY NT MG HI AN TA A B 00 07 07 00 60 30 EA 98 No Ac 59 -0 -[address] 66 t ti 10 9- 7- 00 SI 58 Av ve 50 20 20 DE ai 30 08 08 la 1 PH bl AR e MA CY OF CY NT HI AN A AL 00 06 07 00 90 30 EA 98 No Ac RI 78 -1 -[address] 35 t ti AZ 11 2- 3- 00 SI 21 Av ve OL 07 20 20 DE ai AM 90 08 08 la 1 1 PH bl AR e MG MA CY TA BL OF ET CY NT HI AN A TR 57 06 07 00 90 30 EA 98 No Ac AM 66 -1 -[address] 35 t ti AD 40 2- 3- 00 SI 18 Av ve OL 37 20 20 DE ai 71 08 08 la HC 8 PH bl L AR e 50 MA CY MG OF TA CY BL NT ET HI AN A LI 00 06 07 00 30 30 EA 98 No Ac SI 17 -1 -[address] 35 t ti NO 23 2- 3- 00 SI 22 Av ve RI 75 20 20 DE ai [place] 96 08 08 la 0 PH bl 10 AR e MA MG CY TA OF BL CY ET NT HI AN A 50 06 07 00 12 30 EA 98 No Ac 11 -1 -[address] 35 t ti 10 2- 3- 00 SI 24 Av ve 43 20 20 0 DE ai 00 08 08 la 1 PH bl AR e MA CY OF CY NT HI AN A ME 00 06 07 00 60 30 EA 98 No Ac TO 09 -1 -[address] 35 t ti RI 30 2- 3- 00 SI 19 Av ve OL 73 20 20 DE ai OL 31 08 08 la 0 PH bl TA AR e RT MA RA CY TE OF 50 CY NT MG HI AN TA A B 57 09 06 05 60 30 EA 94 No Ac 66 -0 -[address] 61 t ti 40 4- 5- 00 SI 45 Av ve 47 20 20 DE ai 71 07 08 la 8 PH bl AR e MA CY OF CY NT HI AN A 50 05 05 00 12 30 EA 97 No Ac 11 -1 -[address] 98 t ti 10 3- 2- 00 SI 00 Av ve 43 20 20 0 DE ai 00 08 08 la 1 PH bl AR e MA CY OF CY NT HI AN A 58 05 05 00 60 30 EA 97 No Ac 17 -1 -[address] 98 t ti 70 3- 2- 00 SI 05 Av ve 30 20 20 DE ai 30 08 08 la 4 PH bl AR e MA CY OF CY NT HI AN A TR 57 05 05 00 90 30 EA 97 No Ac AM 66 -1 -[address] 98 t ti AD 40 3- 2- 00 SI 03 Av ve OL 37 20 20 DE ai 71 08 08 la HC 8 PH bl L AR e 50 MA CY MG OF TA CY BL NT ET HI AN A 00 05 05 00 60 30 EA 97 No Ac 59 -0 -[address] 90 t ti 10 7- 2- 00 SI 46 Av ve 50 20 20 DE ai 30 08 08 la 1 PH bl AR e MA CY OF CY NT HI AN A LI 00 04 05 01 30 30 EA 97 No Ac SI 17 -1 -[address] 60 t ti NO 23 4- 2- 00 SI 96 Av ve RI 75 20 20 DE ai [place] 96 08 08 la 0 PH bl 10 AR e MA MG CY TA OF BL CY ET NT HI AN A AL 00 05 05 00 90 30 EA 97 No Ac RI 78 -1 -[address] 98 t ti AZ 11 3- 2- 00 SI 02 Av ve OL 07 20 20 DE ai AM 90 08 08 la 1 1 PH bl AR e MG MA CY TA BL OF ET CY NT HI AN A LI 00 04 04 00 30 30 EA 97 No Ac SI 17 -1 -[address] 60 t ti NO 23 4- 4- 00 SI 96 Av ve RI 75 20 20 DE ai [place] 96 08 08 la 0 PH bl 10 AR e MA MG CY TA OF BL CY ET NT HI AN A NA 00 02 04 01 60 30 EA 96 No Ac RI 09 -0 -[address] 62 t ti OX 30 2- 4- 00 SI 46 Av ve EN 14 20 20 DE ai 90 08 08 la 50 1 PH bl 0 AR e MG MA CY TA BL OF ET CY NT HI AN A AL 00 04 04 00 90 30 EA 97 No Ac RI 78 -1 -[address] 60 t ti AZ 11 4- 4- 00 SI 94 Av ve OL 07 20 20 DE ai AM 90 08 08 la 1 1 PH bl AR e MG MA CY TA BL OF ET CY NT HI AN A TR 57 04 04 00 90 30 EA 97 No Ac AM 66 -1 -[address] 60 t ti AD 40 4- 4- 00 SI 95 Av ve OL 37 20 20 DE ai 71 08 08 la HC 8 PH bl L AR e 50 MA CY MG OF TA CY BL NT ET HI AN A 57 09 04 04 60 30 EA 94 No Ac 66 -0 -[address] 61 t ti 40 4- 4- 00 SI 45 Av ve 47 20 20 DE ai 71 07 08 la 8 PH bl AR e MA CY OF CY NT HI AN A CY 00 04 04 00 90 30 EA 97 No Ac CL 59 -0 -[address] 50 t ti OB 15 7- 4- 00 SI 57 Av ve EN 65 20 20 DE ai ZA 80 08 08 la RI 1 PH bl IN AR e E MA 10 CY MG OF CY TA NT BL HI ET AN A 50 02 04 02 10 25 EA 96 No Ac 11 -0 -[address] 62 t ti 10 2- 4- 00 SI 45 Av ve 43 20 20 0 DE ai 00 08 08 la 1 PH bl AR e MA CY OF CY NT HI AN A 00 04 04 00 60 30 EA 97 No Ac 59 -0 -[address] 50 t ti 10 7- 4- 00 SI 67 Av ve 50 20 20 DE ai 30 08 08 la 1 PH bl AR e MA CY OF CY NT HI AN A LI 00 09 04 05 30 30 EA 94 No Ac SI 17 -0 -[address] 64 t ti NO 23 5- 7- 00 SI 36 Av ve RI 75 20 20 DE ai [place] 96 07 08 la 0 PH bl 10 AR e MA MG CY TA OF BL CY ET NT HI AN A 53 03 04 00 90 30 EA 97 No Ac 48 -1 -[address] 17 t ti 90 1- 7- 00 SI 15 Av ve 49 20 20 DE ai 90 08 08 la 1 PH bl AR e MA CY OF CY NT HI AN A AL 00 03 04 00 90 30 EA 97 No Ac RI 78 -1 -[address] 17 t ti AZ 11 1- 7- 00 SI 16 Av ve OL 07 20 20 DE ai AM 90 08 08 la 1 1 PH bl AR e MG MA CY TA BL OF ET CY NT HI AN A 50 02 04 01 10 25 EA 96 No Ac 11 -0 -[address] 62 t ti 10 2- 7- 00 SI 45 Av ve 43 20 20 0 DE ai 00 08 08 la 1 PH bl AR e MA CY OF CY NT HI AN A 57 09 04 03 60 30 EA 94 No Ac 66 -0 -[address] 61 t ti 40 4- 7- 00 SI 45 Av ve 47 20 20 DE ai 71 07 08 la 8 PH bl AR e MA CY OF CY NT HI AN A AZ 64 03 04 00 6. 6 EA 97 No Ac IT 67 -0 -[address] 11 t ti HR 90 6- 7- 0 SI 25 Av ve OM 96 20 20 DE ai YC 10 08 08 la IN 5 PH bl AR e 25 MA 0 CY MG OF TA CY BL NT ET HI AN A 00 03 04 00 60 30 EA 97 No Ac 59 -0 -[address] 11 t ti 10 6- 7- 00 SI 23 Av ve 50 20 20 DE ai 30 08 08 la 1 PH bl AR e MA CY OF CY NT HI AN A AL 00 02 03 00 90 30 EA 96 No Ac RI 78 -1 -[address] 75 t ti AZ 11 1- 6- 00 SI 45 Av ve OL 07 20 20 DE ai AM 90 08 08 la 1 1 PH bl AR e MG MA CY TA BL OF ET CY NT HI AN A LI 00 09 03 04 30 30 EA 94 No Ac SI 17 -0 -[address] 64 t ti NO 23 5- 6- 00 SI 36 Av ve RI 75 20 20 DE ai [place] 96 07 08 la 0 PH bl 10 AR e MA MG CY TA OF BL CY ET NT HI AN A 57 09 03 02 60 30 EA 94 No Ac 66 -0 -[address] 61 t ti 40 4- 6- 00 SI 45 Av ve 47 20 20 DE ai 71 07 08 la 8 PH bl AR e MA CY OF CY NT HI AN A 53 02 03 00 90 30 EA 96 No Ac 48 -1 -[address] 75 t ti 90 1- 6- 00 SI 43 Av ve 49 20 20 DE ai 91 08 08 la 0 PH bl AR e MA CY OF CY NT HI AN A FL 00 02 03 00 1. 1 EA 96 No Ac UC 17 -0 -[address] 61 t ti ON 25 1- 6- 0 SI 50 Av ve AZ 41 20 20 DE ai OL 21 08 08 la E 1 PH bl 15 AR e 0 MA MG CY TA OF BL CY ET NT HI AN A 50 02 03 00 10 25 EA 96 No Ac 11 -0 -[address] 62 t ti 10 2- 6- 00 SI 45 Av ve 43 20 20 0 DE ai 00 08 08 la 1 PH bl AR e MA CY OF CY NT HI AN A NA 00 02 03 00 60 30 EA 96 No Ac RI 09 -0 -[address] 62 t ti OX 30 2- 6- 00 SI 46 Av ve EN 14 20 20 DE ai 90 08 08 la 50 1 PH bl 0 AR e MG MA CY TA BL OF ET CY NT HI AN A 00 02 03 00 30 30 EA 96 No Ac 59 -1 -[address] 75 t ti 10 1- 6- 00 SI 44 Av ve 50 20 20 DE ai 30 08 08 la 1 PH bl AR e MA CY OF CY NT HI AN A FL 00 01 03 00 1. 1 EA 96 No Ac UC 17 -2 -[address] 49 t ti ON 25 4- 5- 0 SI 21 Av ve AZ 41 20 20 DE ai OL 21 08 08 la E 1 PH bl 15 AR e 0 MA MG CY TA OF BL CY ET NT HI AN A 00 01 03 00 36 15 EA 96 No Ac 59 -2 -[address] 49 t ti 10 4- 5- 00 SI 19 Av ve 50 20 20 DE ai 30 08 08 la 1 PH bl AR e MA CY OF CY NT HI AN A AL 00 01 03 00 90 30 EA 96 No Ac RI 78 -1 -[address] 31 t ti AZ 11 1- 5- 00 SI 17 Av ve OL 07 20 20 DE ai AM 90 08 08 la 1 1 PH bl AR e MG MA CY TA BL OF ET CY NT HI AN A AZ 00 01 03 00 6. 6 EA 96 No Ac IT 09 -2 -[address] 49 t ti HR 37 4- 5- 0 SI 20 Av ve OM 14 20 20 DE ai YC 61 08 08 la IN 8 PH bl AR e 25 MA 0 CY MG OF TA CY BL NT ET HI AN A 53 01 03 00 90 30 EA 96 No Ac 48 -1 -[address] 31 t ti 90 1- 4- 00 SI 15 Av ve 49 20 20 DE ai 91 08 08 la 0 PH bl AR e MA CY OF CY NT HI AN A 00 01 03 00 30 30 EA 96 No Ac 59 -1 -[address] 31 t ti 10 1- 4- 00 SI 19 Av ve 50 20 20 DE ai 30 08 08 la 1 PH bl AR e MA CY OF CY NT HI AN A LI 00 09 03 03 30 30 EA 94 No Ac SI 17 -0 -[address] 64 t ti NO 23 5- 4- 00 SI 36 Av ve RI 75 20 20 DE ai [place] 96 07 08 la 0 PH bl 10 AR e MA MG CY TA OF BL CY ET NT HI AN A Vital Signs 03-08-2013 08:20 Name Value Interpretat Reference Comment ion Range Body 97.6 [degF] Temperature BP 68 mm[Hg] Diastolic BP Systolic 103 mm[Hg] Heart 109 /min Rate/Pulse Respiratory 18 /min Rate 03-08-2013 08:00 Name Value Interpretat Reference Comment ion Range Body 97.6 [degF] Temperature BP 68 mm[Hg] Diastolic BP Systolic 103 mm[Hg] Heart 109 /min Rate/Pulse O2% 95 % Respiratory 18 /min Rate 03-06-2013 17:00 Name Value Interpretat Reference Comment ion Range Height 162.56 cm Weight 70.761 kg Measured 03-06-2013 12:14 Name Value Interpretat Reference Comment ion Range Body 99.1 [degF] Temperature BP 105 mm[Hg] Diastolic BP Systolic 171 mm[Hg] Heart 71 /min Rate/Pulse O2% 93 % Respiratory 16 /min Rate Weight 0 [oz_av] Measured 02-17-2013 20:04 Name Value Interpretat Reference Comment ion Range Body 98.0 [degF] Temperature BP 108 mm[Hg] Diastolic BP Systolic 163 mm[Hg] Heart 87 /min Rate/Pulse O2% 98 % Respiratory 16 /min Rate 02-17-2013 20:03 Name Value Interpretat Reference Comment ion Range BP 108 mm[Hg] Diastolic BP Systolic 163 mm[Hg] Heart 87 /min Rate/Pulse O2% 98 % Respiratory 16 /min Rate Results Labs Lab Lab Date Result Refere Interp Status Commen Order Detail nces retati t Range on CBC with AUTO DIFF (03-07-2013 06:30) WBC # 14.6 4.8-10. complet Bld 013 K/MM3 8 ed Auto 06:30 RBC # 4.63 4.2-5.4 complet Bld 013 M/mm3 ed Auto 06:30 Hgb 14.7 12.2-16 complet Bld-mCn 013 g/dL .2 ed c 06:30 Hct Fr 44.3 % 37.0-47 complet Bld 013 .0 ed 06:30 MCV RBC 95.6 fl 82.2-97 complet 013 .8 ed 06:30 MCH RBC 03-07-2 31.7 pg 27-31.2 complet Qn 013 ed Auto 06:30 MEAN 03-07-2 33.2 31.8-35 complet CORPUSC 013 g/dl .4 ed ULAR 06:30 HGB CONC RDW RBC 03-07-2 15.0 % 11.5-17 complet Auto 013 .5 ed 06:30 Platele 03-07-2 323 142-424 complet t Bld 013 K/mm3 ed Ql 06:30 Manual MEAN 03-07-2 8.4 fl 7.4-10. complet PLATELE 013 4 ed T 06:30 VOLUME Granulo 03-07-2 65.3 % 37.0-80 complet cytes 013 .0 ed Fr Bld 06:30 Auto LYMPH % 29-2 29.2 % 10-50.0 complet 013 ed 06:30 Monocyt 29-2 4.5 % 1.7-9.3 complet es Fr 013 ed Bld 06:30 Auto Eosinop 04-29-2 0.5 % 0.1-12. complet hil Fr 013 0 ed Bld 06:30 Auto Basophi -29-2 0.4 % 0.1-2.0 complet ls Fr 013 ed Bld 06:30 Auto Granulo -29-2 9.5 1.8-7.8 complet cytes # 013 K/mm3 ed Bld 06:30 Auto Lymphoc -29-2 4.3 0.7-4.5 complet ytes Fr 013 K/mm3 ed Bld 06:30 Auto Monocyt 04-29-2 0.7 0.1-1.0 complet es # 013 K/mm3 ed Bld 06:30 Auto Eosinop -29-2 0.1 0.0-0.4 complet hil # 013 K/mm3 ed Bld 06:30 Auto Basophi 04-29-2 0.1 0-0.2 complet ls # 013 K/MM3 ed Bld 06:30 Auto COMPREHENSIVE METABOLIC PANEL (03-06-2013 13:20) Glucose 115 74-106 complet 013 mg/dL ed Bld-mCn 13:20 c BUN 03-06-2 17 7-18 complet Bld-mCn 013 mg/dL ed c 13:20 Creat 04-28-2 0.7 0.6-1.0 complet SerPl-m 013 mg/dL ed Cnc 13:20 ESTIMAT 88 50-200 complet ED 013 ML/MIN ed CREATIN 13:20 INE CLEARAN CE GFR 86 59- complet (ESTIMA 013 ML/MIN ed CARINA) 13:20 Sodium 137 136-145 complet SerPl-s 013 mmoL/L ed Cnc 13:20 Potassi 4.1 3.5-5.1 complet um 013 mmoL/L ed SerPl-s 13:20 Cnc Chlorid 101 98-107 complet e 013 mmoL/L ed SerPl-s 13:20 Cnc CO2 27 21.0-32 complet SerPl-s 013 mmoL/L .0 ed Cnc 13:20 Calcium 9.5 8.5-10. complet 013 mg/dL 1 ed SerPl-m 13:20 Cnc Prot 7.6 6.4-8.2 complet SerPl-m 013 gm/dL ed Cnc 13:20 Albumin 4.7 3.4-5.0 complet 013 gm/dL ed SerPl-m 13:20 Cnc Globuli 2.9 1.3-3.2 complet n 013 gm/dL ed Ser-mCn 13:20 c Albumin 1.6 UNK 1.1-1.8 complet /Glob 013 ed SerPl-m 13:20 Rto Bilirub 0.5 0.2-1.0 complet 013 mg/dL ed SerPl-m 13:20 Cnc AST 11 U/L 15-37 complet SerPl-c 013 ed Cnc 13:20 ALT 40 U/L 30-65 complet SerPl-c 013 ed Cnc 13:20 ALP 137 U/L 50-136 complet SerPl-c 013 ed Cnc 13:20 CBC with AUTO DIFF (03-06-2013 13:20) WBC # 03-06-2 14.4 4.8-10. complet Bld 013 K/MM3 8 ed Auto 13:20 RBC # 03-06-2 4.77 4.2-5.4 complet Bld 013 M/mm3 ed Auto 13:20 Hgb 03-06-2 15.1 12.2-16 complet Bld-mCn 013 g/dL .2 ed c 13:20 Hct Fr 03-06-2 45.8 % 37.0-47 complet Bld 013 .0 ed 13:20 MCV RBC 2 96.0 fl 82.2-97 complet 013 .8 ed 13:20 MCH RBC 2 31.7 pg 27-31.2 complet Qn 013 ed Auto 13:20 MEAN 2 33.0 31.8-35 complet CORPUSC 013 g/dl .4 ed ULAR 13:20 HGB CONC RDW RBC 2 15.1 % 11.5-17 complet Auto 013 .5 ed 13:20 Platele 03-06-2 359 142-424 complet t Bld 013 K/mm3 ed Ql 13:20 Manual MEAN 7.7 fl 7.4-10. complet PLATELE 013 4 ed T 13:20 VOLUME Granulo 03-06-2 68.5 % 37.0-80 complet cytes 013 .0 ed Fr Bld 13:20 Auto LYMPH % 03-06-2 25.1 % 10-50.0 complet 013 ed 13:20 Monocyt 03-06-2 4.9 % 1.7-9.3 complet es Fr 013 ed Bld 13:20 Auto Eosinop -28-2 1.0 % 0.1-12. complet hil Fr 013 0 ed Bld 13:20 Auto Basophi -28-2 0.5 % 0.1-2.0 complet ls Fr 013 ed Bld 13:20 Auto Granulo -28-2 9.9 1.8-7.8 complet cytes # 013 K/mm3 ed Bld 13:20 Auto Lymphoc -28-2 3.6 0.7-4.5 complet ytes Fr 013 K/mm3 ed Bld 13:20 Auto Monocyt -28-2 0.7 0.1-1.0 complet es # 013 K/mm3 ed Bld 13:20 Auto Eosinop -28-2 0.1 0.0-0.4 complet hil # 013 K/mm3 ed Bld 13:20 Auto Basophi 04-28-2 0.1 0-0.2 complet ls # 013 K/MM3 ed Bld 13:20 Auto MYCOPLASMA IGM (RAPID) (03-06-2013 13:20) MYCOPLA NON-NORMAN NONREAC complet SMA IGM 013 CTIVE TIVE ed 13:20 (RAPID) Procedures Procedure DOS Code Location Performer Comment RADEX 58891 [facility] [place] SPINE 7 [place] LUMBOSA[place] ORTHOPAED AL 2/3 IC VIEWS CULTURE 33958 COMBINED COMBINED BACTERIAL 7 PHYSICIAN PHYSICIAN S LA S LA QUANTTATI VE COLONY COUNT URINE URNLS DIP 81718 [facility] 7 [facility] STICK/TAB INTERNAL LET RGNT MED NON-AUTO W/O MICRSCP DRUG TEST 82647 [facility] PRSMV [facility] QUAL DIR INC INC OPTICAL OBS PER DAY DRUG 98313 [facility] SCREENING 7 [facility] OPIOIDS INC INC & OPIATE ANALOGS 5/MORE DRUG 10015 [facility] SCREENING 7 [facility] INC INC BENZODIAZ EPINES 1-12 DRUG 72200 [facility] SCREENING 7 [facility] INC INC CANNABINO IDS NATURAL NJX 86462 ANITA BUX DX/THER 7 MD ROSA, SBST PSC INTRLMNR LMBR/SAC W/IMG GDN COLLECTIO 21413 [facility] N VENOUS 7 [facility] BLOOD INC INC VENIPUNCT URE BASIC 25283 [facility] METABOLIC 7 [facility] PANEL [place] IN[place] [address] ANITA DUFF JOINT 7 MD ROSA, ARTHRGRP PSC Y&/ANES/S TEROID W/MICHELLE UNCLASSIF J3490 [facility] IED DRUGS 7 [facility] INC INC UNCLASSIF J3490 [facility] IED DRUGS 7 [facility] INC INC CV STRS 32819 [facility] ROZ TST 7 PHYSICIAN XERS&/OR S GROUP RX CONT ECG W/O I&R CV STRS 05164 [facility] TST 7 [facility] XERS&/OR INC INC RX CONT ECG TRCG ONLY MYOCARDIA 68449 [facility] L SPECT 7 [facility] MULTIPLE INC INC STUDIES ECHO 18416 [facility] TTHRC R-T 7 [facility] 2D INC INC W/WOM-MOD E COMPL SPEC&COLR D DUPLEX 44917 [place] SCAN 7 MEDICAL EXTRACRAN IMAGING IAL ART ASS COMPL BI STUDY LIPID 78493 [facility] PANEL 7 [facility] INC INC COLLECTIO 78911 [facility] N VENOUS 7 [facility] BLOOD INC INC VENIPUNCT URE DRUG TEST 03880 [facility] PRSMV 7 [facility] QUAL DIR INC INC OPTICAL OBS PER DAY ECG 55981 [facility] ROUTINE 7 [facility] ECG INC INC W/LEAST 12 LDS TRCG ONLY W/O I&R RADIOLOGI 87979 [facility] C EXAM 6 [facility] CHEST 2 INC INC VIEWS FR[place]AL&[place] [address] [facility] TROPONIN 6 [facility] QUANTITAT INC INC ANUPAMA BLOOD 07308 [facility] COUNT 6 [facility] COMPLETE INC INC AUTO&AUTO DIFRNTL WBC SMR PRIM 15518 [facility] SRC 6 [facility] GRAM/GIEM INC INC SA STAIN BCT FUNGI/ADAMA L CREATINE 33632 [facility] KINASE 6 [facility] TOTAL INC INC BASIC 24129 [facility] METABOLIC 6 [facility] PANEL INC INC CALCIUM TOTAL CREATINE 11843 [facility] KINASE MB 6 [facility] FRACTION INC INC ONLY HOSPITAL G0378 [facility] OBSERVATI 6 [facility] ON INC INC SERVICE PER HOUR COLLECTIO 64954 [facility] N VENOUS 6 [facility] BLOOD INC INC VENIPUNCT URE CUL BACT 18463 [facility] XCPT 6 [facility] URINE INC INC BLOOD/STO OL AEROBIC ISOL HOSPITAL G0378 [facility] OBSERVATI 6 [facility] [place] [address] [facility] LACTATE 6 [facility] INC INC THROMBOPL 73613 [facility] ASTIN 6 [facility] TIME INC INC PARTIAL PLASMA/WH OLE BLOOD PROTHROMB 08233 [facility] IN TIME 6 [facility] INC INC THER 61140 [facility] PROPH/DX 6 [facility] NJX IV INC INC PUSH SINGLE/1S T SBST/DRUG ECG 46693 [facility] ROUTINE 6 [facility] ECG INC INC W/LEAST 12 LDS TRCG ONLY W/O I&R PRESSURIZ 52123 [facility] ED/NONPRE 6 [facility] SSURIZED INC INC INHALATIO N TREATMENT THERAPEUT 39461 [facility] IC 6 [facility] INJECTION INC INC IV PUSH EACH NEW DRUG CREATINE 72679 [facility] KINASE 6 [facility] TOTAL INC INC RADIOLOGI 57947 [facility] C EXAM 6 [facility] CHEST 2 INC INC VIEWS FRONTAL&L ATERAL CULTURE 13130 [facility] BACTERIAL 6 [facility] BLOOD INC INC AEROBIC W/ID ISOLATES NATRIURET 28971 [facility] IC 6 [facility] PEPTIDE INC INC BLOOD 80112 [facility] COUNT 6 [facility] COMPLETE INC INC AUTO&[place] [address] [facility] TROPONIN 6 [facility] QUANTITAT INC INC ANUPAMA ECG 54840 [facility] LAL ROUTINE 6 [facility] W/LEAST P 12 LDS I&R ONLY COLLECTIO 01767 [facility] N VENOUS 6 [facility] BLOOD INC INC VENIPUNCT URE COMPREHEN 62662 [facility] SIVE 6 [facility] METABOLIC INC INC PANEL CREATINE 18405 [facility] KINASE MB 6 [facility] FRACTION INC INC ONLY CULTURE 13788 COMBINED COMBINED BACTERIAL 6 PHYSICIAN PHYSICIAN S LA S LA QUANTTATI VE COLONY COUNT URINE CYTP C/V 69104 [facility], PICKLESIM AUTO THIN 6 LLC ER JR DARIUSZ LYR PREPJ SCR MNL RESCR PHYS URNLS DIP 22372 [facility] MANDUJANO MIS 6 [facility] STICK/TAB INTERNAL LET RGNT MED NON-AUTO W/O MICRSCP BLOOD 41141 [facility] DELBERT MIS OCCULT 6 [facility] PEROXIDAS INTERNAL E ACTV MED QUAL FECES 1 DETER SCREENING G0202 [place] [facility] 6 MEDICAL MAMMOGRAP IMAGING HY NIESHA ASS INCL CAD WHEN PERFORMD DRUG TST G0477 COMBINED NATHANIEL PRESUMP;C 6 PHYSICIAN LEO PBL [place] [address] [facility] HEAD/BRAI 6 [facility] N W/O INC INC CONTRAST MATERIAL URNLS DIP 72458 [facility] WUON 6 [facility] STICK/TAB INC INC LET REAGENT AUTO MICROSCOP Y REMOVAL 58551 [facility] IMPACTED 6 PHYSICIAN TU ZUNIGA S GROUP INSTRUMEN TATION UNILAT DRUG TST G0477 COMBINED COMBINED PRESUMP;C 6 PHYSICIAN PHYSICIAN PBL BEING S LA S LA READ DC OPT OBV ONLY ECG RTN G0403 COMBINED COMBINED ECG W/12 6 PHYSICIAN PHYSICIAN LEADS SCR S LA S LA INIT PREVNTV PE W/I&R NERVE 29120 [facility] CALLY CONDUCTIO 6 N N STUDIES NEUROLOGY 9-10 STUDIES NEEDLE 41152 [facility] EMG EA 6 N EXTREMTY NEUROLOGY W/[place] [address] CHIPPS VINCENT SURG 6 [facility] & THOMAS PATHOLOGY DUBILIER GROSS&HENRRY ROSCOPIC EXAM EGD 46418 [facility] T[facility] THO TRANSORAL 6 L SURGIAL BIOPSY SINGLE/MU ASSOCIATE LTIPLE ANES 36860 [facility] UPPER GI 6 [place] [facility] ENDOSCOPY ANESTHESI PROXIMAL A TO DUODENUM IMMUNOASS 12042 [facility] AY 5 [facility] K[facility] ANALYTE [facility]INGS HOLDINGS QUAL/[place] [address] [facility] GAMMAGLOB 5 KEL[facility] KELTON ULIN IGA HOLDINGS HOLDINGS IGD IGG IGM EACH RADIOLOGI 59605 TENAHA MONTANO C 5 RADIOLOGY SHANNON EXAMINATI ASSOC ON CHEST SINGLE VIEW FRONTAL ECG 47206 [facility] ROUTINE 5 EMERGENCY GREG ECG PHYS PSC W/LEAST 12 LDS I&R ONLY BLOOD 63794 [facility] COUNT 5 [facility] COMPLETE INC INC AUTO&AUTO DIFRNTL WBC RADIOLOGI 36221 [facility] EUGENIO C 5 MEDICAL LA EXAMINATI IMAGING ON TIBIA ASS & FIBULA 2 VIEWS RADEX 66622 [facility] FOOT 5 MEDICAL LA COMPLETE IMAGING MINIMUM 3 ASS VIEWS COMPREHEN 91744 [facility] SIVE 5 [facility] METABOLIC INC INC PANEL OPHTH 83082 [facility] SCIFR MEDICAL 5 ANG ANG XM&EVAL COMPRHNSV ESTAB PT 1/> HOSPITAL 96164 [facility] DISCHARGE 5 [facility] DAY INTERNAL MANAGEMEN MED T 30 MIN/< ECG 29444 [facility] LAL ROUTINE 5 [facility] W/LEAST P 12 LDS I&[place] [address] [place] [facility] ABDOMEN & 5 MEDICAL FAHEEM PELVIS IMAGING W/O ASS CONTRAST MATERIAL INITIAL 50529 [facility] OBSERVATI 5 [facility] ON INTERNAL CARE/DAY MED 30 MINUTES RADIOLOGI 08223 [place] AT[place] ALL C EXAM 5 MEDICAL CHEST 2 IMAGING VIEWS ASS FRONTAL&L ATERAL ANES 54567 [facility] ALBERT OVIDIO TRANSURET 5 ANESTH HRAL OF THE W/URETHRO BLUE CYSTOSCOP Y NOS PRESSURIZ 86944 [facility] ED/NONPRE 5 [facility] SSURIZED INC INC INHALATIO N TREATMENT CYSTO 29390 [facility] CALIBRATI 5 [facility] ON DILAT INC INC URTL STRIX/ANN NOS HOSPITAL 90889 [facility] DISCHARGE 5 [facility] DAY INTERNAL MANAGEMEN MED T 30 MIN/< INITIAL 12232 [facility] INPATIENT 5 PHYSICIAN CAM CONSULT S GROUP NEW/ESTAB PT 55 MIN INITIAL 76891 [place] [address] [facility] CARE/DAY INTERNAL [address] [place] [address] [place] FRANCISCOA[place]A [facility] ABDOMEN & 5 MEDICAL FAHEEM PELVIS IMAGING W/O ASS CONTRAST MATERIAL CV STRS 37287 [facility] TST 5 [facility] ROM XERS&/OR MEDICAL RX CONT G ECG I&R ONLY ECHO 35550 [facility] R-T 5 [facility] 2D MEDICAL W/WOM-MOD G E COMPL SPEC&COLR D ECHO 99227 [facility] R-T [address] [place] [address] 2D W/WOM-MOD E COMPL SPEC&COLR D CV STRS [address] XERS&/OR RX CONT ECG TRCG ONLY MRI 18101 [facility] ABDOMEN 5 MEDICAL LA W/O IMAGING CONTRAST ASS MATERIAL BLOOD 95394 [facility] COUNT 5 [facility] COMPLETE INC INC AUTO&[place] [address] [facility] LIPASE 5 [facility] INC INC COLLECTIO 63061 [facility] N VENOUS 5 [facility] BLOOD INC INC VENIPUNCT URE COMPREHEN 39947 [facility] SIVE 5 [facility] [place] [address] [facility] AMYLASE 5 [facility] INC INC MRI 64261 [facility] LOZADA TRA SPINAL 5 [place] CANAL ORTHOPAED LUMBAR ICS [facility] W/O CONTRAST MATERIAL RADIOLOGI 49209 [facility] EXAM 5 MEDICAL LA CHEST 2 IMAGING VIEWS ASS FRONTAL&L ATERAL APPL 02420 [facility] MODALITY 5 [facility] 1/> AREAS INC INC ELEC STIMJ UNATTENDE D APPLICATI 04020 [facility] ON 5 [facility] MODALITY INC INC 1/> AREAS HOT/COLD PACKS APPL 34143 [facility] MODALITY 5 [facility] 1/> AREAS INC INC ULTRASOUN D EA 15 MIN APPL 42696 [facility] MODALITY 5 [facility] 1/> AREAS INC INC ULTRASOUN D EA 15 MIN APPL 45322 [facility] MODALITY 5 [facility] 1/> AREAS INC INC ULTRASOUN D EA 15 MIN APPLICATI 96494 [facility] ON 5 [facility] MODALITY INC INC 1/> AREAS HOT/COLD PACKS APPL 74389 [facility] MODALITY 5 [facility] 1/> AREAS INC INC ELEC STIMJ UNATTENDE D APPL 84615 [facility] MODALITY 5 [facility] 1/> AREAS INC INC ELEC STIMJ UNATTENDE D APPLICATI 61249 [facility] ON 5 [facility] MODALITY INC INC 1/> AREAS HOT/COLD PACKS APPL 76042 [facility] MODALITY 5 [facility] 1/> AREAS INC INC ULTRASOUN D EA 15 MIN LOCM Q9967 [facility] [phone] [facility] MG/ML INC [place] [address] [facility] ABDOMEN & 5 [facility] PELVIS INC INC W/CONTRAS T MATERIAL COLLECTIO 28226 [facility] N VENOUS 5 [facility] [place] [address] [facility] UREA 5 [facility] NITROGEN INC INC QUANTITAT [place] CREATININ 39090 [facility] E BLOOD 5 [facility] INC INC APPL 86778 [facility] MODALITY 5 [facility] 1/> AREAS INC INC ULTRASOUN D EA 15 MIN APPLICATI 06007 [facility] ON 5 [facility] MODALITY INC INC 1/> AREAS HOT/COLD PACKS APPL 09022 [facility] MODALITY 5 [facility] 1/> AREAS INC INC ELEC STIMJ UNATTENDE D APPL 56107 [facility] MODALITY 5 [facility] 1/> AREAS INC INC ELEC STIMJ UNATTENDE D APPLICATI 37079 [facility] MADISON ON 5 [facility] MODALITY INC INC 1/> AREAS HOT/COLD PACKS APPL 91532 M[facility] MODALITY 5 [facility] 1/> AREAS INC INC ULTRASOUN D EA 15 MIN PHYSICAL 32368 [facility] THERAPY 5 [facility] EVALUATIO INC INC N SCREENING G0202 [place] EUGENIO 5 MEDICAL LA MAMMOGRAP IMAGING HY NIESHA ASS INCL CAD WHEN PERFORMD COMPUTER- 39818 [place] EUGENIO AIDED 5 MEDICAL LA DETECTION IMAGING ASS SCREENING MAMMOGRAP HY RADEX 23430 [facility] SPINE 5 [facility] LUMBOSACR INC INC AL MINIMUM 4 VIEWS TYMPANOME 52497 JAI ARRIAGA TRY 4 TU RAIMUNDO COMPRE 28919 JAI ARRIAGA AUDIOMETR 4 TU RAIMUNDO Y THRESHOLD EVAL SP RECOGNIJ DISTORT 85305 VERGARA CORINA PRODUCT 4 TU RAIMUNDO EVOKED OTOACOUST IC EMISNS LIMITD DEBRIDEME 60088 JAI VERGARA NT 4 MASTOIDEC LILI CAVITY SIMPLE PORTABLE K0738 GOUL[facility] GOUL[facility] GASEOUS 4 DISCOUNT DISCOUNT O2 SYS MEDICAL MEDICAL RENTAL; HOME COMPRESSO R O2 CONC 1 E1390 GOULDS GOULDS DEL PORT 4 DISCOUNT DISCOUNT 85%/>02 MEDICAL [facility] CON[facility] FLW RATE O2 CONC 1 E1390 GOULDS GOULDS DEL PORT 4 DISCOUNT DISCOUNT 85%/>02 MEDICAL [facility] FLW RATE PORTABLE K0738 GOULDS GOULDS GASEOUS 4 DISCOUNT DISCOUNT O2 SYS MEDICAL MEDICAL RENTAL; HOME COMPRESSO R ECG 48760 [facility] ROUTINE 4 HEART SOLEDAD ECG SPECIALIS W/LEAST TS, 12 LDS I&R ONLY MONITOR 22500 WYATT Espinosa ID& 4 LATERALIZ ATION SEIZURE FOCUS EEG ELECTROEN 57001 WYATT Espinosa CEPHALOGR 4 AM W/REC AWAKE&ASL EEP DECALCIFI 49440 CHIPPS VINCENT CATION 4 SHIRLEY & THOMAS PROCEDURE DUBILIER LEVEL III 54458 [facility]IPPS VINCENT SURG 4 SHIRLEY & THOMAS PATHOLOGY [facility] GROSS&HENRRY ROSCOPIC EXAM ANESTHESI 26476 KARLY BRANDT A MAJOR 4 ANAHI ANAHI VESSELS NECK NOS ARTL 23710 SAUMYAKAYLI BRANDT CATHJ/CAN 4 ANAHI ANAHI NULJ MNTR/WEBER SFUSION SPX PRQ TEAEC 82278 GNOSTICISM MOOSE W/PATCH 4 CARDIOTHO ROHAN GRF RACIC CAROTID SURGI VERTB SUBCLAV NECK INC SBSQ 44086 [facility] 4 YUR YUR CARE/DAY 35 MINUTES RADIOLOGI 01038 [facility] 4 SHANNON SHANNON CHEST 2 VIEWS FRONTAL&L ATERAL ECG 65774 [place] ARMENDARIZ ROUTINE 4 HEART SOLEDAD ECG SPECIALIS W/LEAST TS, 12 LDS I&[place] [address] OLIVER ADA OLIVER ADA ANGIOGRAP 4 HY NECK W/CONTRAS T/[place] PRQ 20383 ARMENDARIZ ARMENDARIZ TRLUML 4 SOL[facility] CORONARY STENT W/ANGIO ONE ART/BRNCH CATH PLMT 86686 ARMENDARIZ ARMENDARIZ L HRT & 4 [facility] ARTS W/NJX & ANGIO IMG S&I ARTHROCEN 15247 [place] [facility] TESIS 4 MEDICAL N CHR ASPIR&/IN SERV J INTERM FOUNDATIO JT/BURS N W/O US DUPLEX 49002 MOOSE VIRK SCAN 4 ROHAN ROHAN EXTRACRAN IAL ART COMPL BI STUDY RADIOLOGI 84696 CHARIS CHARIS C EXAM 4 ANAHI ANAHI KNEE COMPLETE 4/MORE VIEWS INJECTION J3301 [place] [facility]TER[facility] 4 MEDICAL N CHR TRIAMCINO SERV LONE FOUNDATIO ACETONIDE N NOS 10 MG ARTHROCEN 91651 [place] [facility] TESIS 4 MEDICAL N CHR ASPIR&/IN SERV J MAJOR FOUNDATIO JT/BURSA N W/O US RADEX 89829 UNIVERSIT UNIVERSIT ANKLE 4 Y Y COMPLETE HOSPITAL HOSPITAL MINIMUM 3 VIEWS DRUG SCR G0434 ADRIEL HAM ADRIEL HAM NOT 4 CHROMATOG RAPHIC; ANY NUMBER PT ENC LIPID 51780 [facility] PANEL 3 [facility] INC INC SCREENING G0202 EUGENIO EUGENIO 3 LA LA MAMMOGRAP HY NIESHA INCL CAD WHEN PERFORMD COMPUTER- 46446 EUGENIO EUGENIO AIDED 3 LA LA DETECTION SCREENING MAMMOGRAP HY COMPREHEN 05325 [facility] SIVE 3 [facility] METABOLIC INC INC PANEL BLOOD 78458 ELIZABETH ELIZABETH OCCULT 3 AUDRA AUDRA PEROXIDAS E ACTV QUAL FECES 1 DETER URNLS DIP 45903 ELIZABETH ELIZABETH 3 AUDRA AUDRA STICK/TAB LET RGNT NON-AUTO W/O MICRSCP CYTP C/V 42775 PICKLESIM PICKLESIM AUTO THIN 3 ER JR DARIUSZ ER JR DARIUSZ LYR PREPJ SCR MNL RESCR PHYS DUPLEX 67763 EUGENIO EUGENIO SCAN 3 LA LA EXTRACRAN IAL ART COMPL BI STUDY MYOCARDIA 53604 EUGENIO EUGENIO L SPECT 3 LA LA SINGLE STUDY AT REST OR STRESS CV STRS 27468 [facility] TST 3 PHYSICIAN PHYSICIAN XERS&/OR S GROUP S GROUP RX CONT ECG W/O I&R RADIOLOGI 45075 EUGENIO EUGENIO C 3 LA LA EXAMINATI ON CHEST SINGLE VIEW FRONTAL ANES 92475 [facility] LOWER 3 ANESTH INTESTINE OF THE BLUE ENDOSCOPY DISTAL DUODENUM COLONOSCO 86976 [facility] PY FLX DX 3 [facility] W/COLLJ INC INC SPEC WHEN [facility] 31195 [facility] B[facility]ON DISCHARGE 3 ANN ANN DAY MANAGEMEN T 30 MIN/< SBSQ 08201 [facility] JR [facility] WALDRON SOL[facility] CARE/DAY 25 MINUTES INITIAL 56667 [facility] SCHULSTAD INPATIENT 3 LUDWIN LUDWIN CONSULT NEW/ESTAB PT 40 MIN SBSQ 50582 [facility] 3 JR SOLED[facility] ROWE CARE/DAY 25 MINUTES SBSQ 69414 [facility] 3 JR SOL[facility] ROWE CARE/DAY 25 MINUTES INITIAL 93420 [facility] 3 JR SOL[facility] ROWE CARE/[place] [address] [place] [address] EUGENIO EUGENIO ABDOMEN & 3 LA LA PELVIS W/CONTRAS T MATERIAL LUMB L0627 [facility]IS 2 HOME [facility] MEDICAL CNTRL EQUIPME EQUIPME RIGID A&P PANEL PREFAB RADIOLOGI 56540 [facility] C EXAM 2 MEDICAL LA CHEST 2 IMAGING VIEWS ASS FRONTAL&L ATERAL RADEX 58833 [facility] [facility] SPINE 2 MEDICAL LA LUMBOSACR IMAGING AL ASS MINIMUM 4 VIEWS RADIOLOGI 82049 [facility] C 2 [facility] EXAMINATI INC INC ON KNEE 3 VIEWS URNLS DIP 95813 [facility] 2 JR SOLEDAD ROWE STICK/TAB LET RGNT NON-AUTO W/O MICRSCP RADEX 86985 [facility] UPPER GI 2 [facility] W/WO INC INC GLUCAGON/ DEL[place] IM[place] W/[place] [address] [place] EUGEN[facility] ABDOMINAL 2 MEDICAL LA REAL IMAGING TIME [place] [address] [place] [facility] TRACT 2 MEDICAL LA UPPER IMAGING W/WO ASS DELAYED IMAGES W/O KUB DUPLEX 98694 [facility] SCAN 2 [facility] EXTRACRAN INC INC IAL ART COMPL BI STUDY COMPUTER- 40439 [facility] AIDED 2 [facility] DETECTION INC INC SCREENING MAMMOGRAP HY SCREENING G0202 [facility] 2 [facility] MAMMOGRAP INC INC HY NIESHA INCL CAD WHEN PERFORMD BLOOD 73247 [facility] COUNT 2 [facility] COMPLETE INC INC AUTO&AUTO DIFRNTL WBC LIPID 08506 [facility] PANEL 2 [facility] INC INC COMPREHEN 01181 [facility] SIVE 2 [facility] METABOLIC INC INC PANEL PHYSICAL 65226 [facility] THERAPY 1 [facility] EVALUATIO INC INC N DUPLEX 56298 GNOSTICISM IMAM MOH SCAN 1 CARDIOTHO EXTRACRAN RACIC IAL ART SURGI COMPL BI STUDY COLSC FLX 11312 [facility] 1 [facility] W/REMOVAL [place] [address] [facility] INFUSION 1 [facility] THERAPY INC INC PROPHYLAX [place] [address] CHIPPS DOUGHERTY SURG 1 SHIRLEY & ALEXUS PATHOLOGY DUBILIER GROSS&HENRRY ROSCOPIC EXAM ENDOSCOPI 4542 [facility] C 1 [facility] POLYPECTO INC INC MY OF LARGE INTESTINE SCREENING G0202 [place] EUGENIO 1 MEDICAL LA MAMMOGRAP IMAGING HY NIESHA ASS INCL CAD WHEN PERFORMD COMPUTER- 00646 [place] EUGENIO AIDED 1 MEDICAL LA DETECTION IMAGING ASS SCREENING MAMMOGRAP HY BASIC 99169 [facility] METABOLIC 0 [facility] PANEL INC INC CALCIUM TOTAL BLOOD 99059 [facility] COUNT 0 [facility] COMPLETE INC INC AUTO&AUTO DIFRNTL WBC ANESTHESI 05769 [facility] BEAN CHR A MAJOR 0 [place] VESSELS ANESTHESI NECK NOS A EEG 11144 FARZANA CARD JOSS NONINTRAC 0 STEPHIE CABREAR RANIAL PSC SURGERY ARTL 83644 CEN[facility]AL BROSTER CATHJ/CAN 0 [place] THO NULJ ANESTHESI MNTR/WEBER A SFUSION SPX PRQ TEAEC 76082 GNOSTICISM IMAM MOH W/PATCH 0 CARDIOTHO GRF RACIC CAROTID SURGI VERTB SUBCLAV NECK INC DECALCIFI 80214 CHIPPS VINCENT CATION 0 SHIRLEY & THOMAS PROCEDURE DUBILIER LEVEL III 87333 CHIPPS VINCENT SURG 0 SHIRLEY & THOMAS PATHOLOGY DUBILIER GROSS&HENRRY ROSCOPIC EXAM ECG 38744 [place] [facility] ROUTINE 0 ECG CARDIOLOG W/LEAST Y CONSULT 12 LDS I&R ONLY SLCTV 38148 [facility] ADA CATHJ 1ST 0 RADIOLOGY 2ND ORD ASSOC THRC/BRCH /CPHLC BRNCH ANGIOGRAP 35072 [facility] OLIVER ADA HY 0 RADIOLOGY CAROTID ASSOC CERVICAL BILATERAL RS&I ANGIOGRAP 96441 [facility] OL[facility] ADA HY 0 RADIOLOGY CAROTID ASSOC CEREBRAL BILATERAL RS&I SLCTV 60616 [facility] ADA CATHJ EA 0 RADIOLOGY 1ST ORD ASSOC THRC/BRCH /CPHLC BRNCH ARTERIOGR 8841 [facility] APHY OF 0 GNOSTICISM GNOSTICISM CEREBRAL HOSP HOSP ARTERIES COLLECTIO 00385 [facility] N VENOUS 0 GNOSTICISM GNOSTICISM BLOOD HOSP HOSP VENIPUNCT URE CREATININ 09842 [facility] E B[facility] PROTHROMB 30026 [facility] IN TIME [address] [facility] 50552 [facility] DISCHARGE 0 [facility] INTERNAL MANAGEMEN MED T 30 MIN/< SBSQ 99537 [facility] 0 [facility] CARE/DAY INTERNAL 25 MED MINUTES INITIAL 81490 [facility] 0 [facility]/DAY INTERNAL 50 MED MINUTES RADIOLOGI 41965 [facility] C EXAM 0 MEDICAL MARK CHEST 2 IMAGING VIEWS ASS FRONTAL&L ATERAL RADIOLOGI 83642 [facility] C EXAM 0 MEDICAL MARK CHEST 2 IMAGING VIEWS ASS FRONTAL&L ATERAL MRI ANY 26121 TAO Caal EUGENIO JT LOWER 0 EUGENIO LA EXTREM W/O CONTRAST MATRL DUPLEX 88119 [facility] SCAN 0 [facility] EXTRACRAN INC [place] [address] [facility] THYROID 0 [facility] STIMULATI INC INC NG HORMONE TSH COMPREHEN 07509 [facility] SIVE 0 [facility] METABOLIC INC INC PANEL CREATINE 71826 [facility] KINASE 0 [facility] TOTAL INC INC BLOOD 22270 [facility] COUNT 0 [facility] COMPLETE INC INC AUTO&AUTO DIFRNTL WBC LIPID 54393 [facility] PANEL 0 [facility] INC INC FLUORESCE 96162 [facility] NT 0 [facility] NONNFCT INC INC AGT ANTB TITER EA ANTIBODY COMPUTER- 66222 [facility] AIDED 0 [facility] DETECTION INC INC SCREENING MAMMOGRAP HY SCREENING 17472 [facility] 0 [facility] M[place]MO[place] [address] [facility] UREA 0 [facility] [place] [address] [facility] ANGIOGRAP 0 [facility] HY NECK INC INC W/CONTRAS T/NONCONT RAST CREATININ 48978 [facility] E BLOOD 0 [facility] INC INC IMMUNODIF 00706 [facility] FUSION 0 [facility] GEL INC INC DIFFUSION QUAL EA AG/ANTBDY C-REACTIV 50795 [facility] E PROTEIN 0 [facility] HIGH INC INC SENSITIVI TY COMPLEMEN 90900 [facility] T 0 [facility] FIXATION INC INC TESTS EACH ANTIGEN ALLERGEN 49982 [facility] SPECIFIC 0 [facility] IGG INC INC NORMA/SEMI NORMA EA ALLERGEN ANTIBODY 12502 [facility] IDENTIFIC 0 [facility] ATION INC INC LEUKOCYTE ANTIBODIE S DUPLEX 13021 [facility] SCAN 0 [facility] EXTRACRAN INC INC IAL ART COMPL BI STUDY ALPHA-1-A 82506 [facility] NTITRYPSI 0 [facility] N TOTAL INC INC ANTIBODY 33070 [facility] ASPERGILL 0 [facility] US INC INC ALPHA-1-A 39966 [facility] NTITRYPSI 0 [facility] N INC INC PHENOTYPE ANTINUCLE 38630 [facility] AR 0 [facility] ANTIBODIE [place] [address] [facility] THYROID 0 [facility] STIMULATI [place] [address] [facility] W[facility] GAMMAGLOB 0 [facility] ULIN IGE INC INC CYTP 36513 PATHOLOGY PATHOLOGY SLCTV 9 & & CELL CYTOLOGY CYTOLOGY ENHANCEME LAB LAB [place] INTERP[place]CP[place] C/[place] [address] PATHOLOGY PATHOLOGY SURG 9 & & PATHOLOGY CYTOLOGY CYTOLOGY LAB LAB GROSS&HENRRY ROSCOPIC EXAM CULTURE 84698 [facility] FNGI 9 [facility] MOLD/YEAS INC INC T PRSMPTV OTH XCPT BLOOD BRNCHSC 44128 [facility] W/BRNCL 9 [facility] ALVEOLAR INC INC LAVAGE CULTURE 82534 [facility] TUBERCLE/ 9 [facility] OTH INC INC ACID-FAST BACILLI ANY ISOL CUL BACT 49810 [facility] XCPT 9 [facility] URINE INC INC BLOOD/[place] [address] [facility] UWON INFUSION 9 [facility] THERAPY INC INC PROPHYLAX IS/DX EA HOUR SMR PRIM 96534 [facility] SRC 9 [facility] GRAM/GIEM INC INC [place] STAIN BCT FUNGI/[place] [address] [facility] WUON INFUSION 9 [facility] THERAPY/P INC INC ROPHYLAXI S /DX 1ST TO 1 [facility] 12982 GNOSTICISM FLOWERS INCL 9 CARDIOTHO SOLEDAD FLUOR RACIC GDNCE DX SURGI W/CELL WASHG SPX CLOSED 3324 [facility] BIOPSY OF 9 [facility] BRONCHUS INC INC BRNCDILAT 70367 [facility] RSPSE 9 [facility] SPMTRY INC INC PRE&POST- BRNCDILAT ADMN DETER 20364 [facility] AIRWY 9 [facility] CLOSING INC INC VOL 1 BRTH TSTS DETER 38561 [facility] CHRISTIANSON MALDISTRI 9 [facility] INSPIRED PROF SERV GAS N WSHOT CURVE FUNCTIONA 86971 [facility] L 9 [facility] RESIDUAL INC INC CAPACITY OR RESIDUAL VOLUME CREATININ 46443 [facility] E BLOOD 9 [facility] INC INC 3D 41837 ASAF ALEXANDRA 9 MEDICAL TAO IMAGING W/INTERP& ASSOCIATE POSTPROC S DIFF WORK STATION CT THORAX 67741 GEM BECKER 9 MEDICAL TAO W/CONTRAS [place]AG[place] [address] [facility] UREA 9 [facility] NITROGEN INC INC QUANTITAT [place] COMPREHEN 74273 [facility] SIVE 9 [facility] METABOLIC INC INC PANEL LIPID 12636 [facility] PANEL 9 [facility] INC INC CREATINE 46974 [facility] KINASE 9 [facility] TOTAL INC INC RADIOLOGI 93889 [facility] Caal 9 [facility] EXAMINATI INC INC ON KNEE 1/2 VIEWS RADIOLOGI 40338 M[facility] C 9 [facility] EXAMINATI INC INC ON KNEE 3 VIEWS RADIOLOGI 88776 Ten ALEXANDRA EXAM 9 MEDICAL TAO BOTH IMAGING KNEES ASSOCIATE STANDING S ANTEROPOS T RADIOLOGI 90148 [facility] BYRNE EXAM 9 MEDICAL TAO KNEE IMAGING COMPLETE ASSOCIATE 4/MORE S VIEWS RADEX 01493 [facility] BECKER ANKLE 9 MEDICAL TAO COMPLETE IMAGING MINIMUM 3 ASSOCIATE VIEWS S RADIOLOGI 86980 [facility] BYRNE EXAM 9 MEDICAL TAO CHEST 2 IMAGING VIEWS ASSOCIATE FRONTAL&L S ATERAL RADIOLOGI 88537 [facility] CRUZ EXAM 9 MEDICAL HARMAN P CHEST 2 IMAGING VIEWS ASSOCIATE FRONTAL&L S ATERAL IAADI 60028 [facility] INFLUENZA 9 [facility] B VIRUS INC INC IAADI 71873 [facility] INFFLUENZ 9 [facility] A A VIRUS INC INC COMPUTER- 85085 [facility] AIDED 9 [facility] DETECTION INC INC SCREENING MAMMOGRAP HY SCREENING 21469 [facility] 9 [facility] MAMMOGRAP INC INC HY BILATERAL 3D 30385 GEM LORE, RENDERING 8 MEDICAL HARMAN P IMAGING W/INTERP& ASSOCIATE POSTPROC S DIFF WORK STATION CT PELVIS 29940 [facility] 8 [facility] W/[place] [address] [facility] ABDOMEN 8 [facility] W/CONTRAS INC INC T MATERIAL CREATININ 04240 [facility] E BLOOD 8 [place] [address] [facility] UREA 8 [facility] NITROGEN INC INC QUANTITAT [place] GASTRIC 92934 [facility] EUGENIO, EMPTYING 8 MEDICAL TAO IMAGING IMAGING STUDY ASSOCIATE S COMPREHEN 45027 [facility] SIVE 8 [facility] [place] [address] [facility] AMYLASE 8 [place] [address] [facility] LIPASE 8 [facility] INC INC RADEX ABD 01170 [facility] EUGENIO, COMPL 8 MEDICAL TAO AQT ABD IMAGING W/S/E/D ASSOCIATE VIEWS 1 S VIEW CH BLOOD 29421 [facility] COUNT 8 [facility] COMPLETE INC INC AUTO&AUTO DIFRNTL WBC LUMB L0627 [facility] ORTHOSIS 8 BRACE BRACE SAGIT PROSTH PROSTH CNTRL INC INC RIGID A&P PANEL PREFAB WRIST L3908 [facility] HAND 8 BRACE BRACE ORTHOSIS PROSTH PROSTH EXT INC INC CONTROL COCK-UP PREFAB CUL 27368 [facility] PRSMPTV 8 [facility] PTHGNC INC INC ORGANISMS SCR DNS CHART SPCL STN 22464 PATHOLOGY PATHOLOGY 2 I&R 8 & & EXCPT CYTOLOGY CYTOLOGY MICROORG/ LAB LAB ENZYME/IM CYT SPECIAL 70309 PATHOLOGY PATHOLOGY STAIN 8 & & GROUP 1 CYTOLOGY CYTOLOGY MICROORGA LAB LAB [facility] [place] I&[place] [address] PATHOLOGY PATHOLOGY SURG 8 & & PATHOLOGY CYTOLOGY CYTOLOGY LAB LAB GROSS&HENRRY ROSCOPIC EXAM IV NFS 17129 [facility] THER 8 [facility] PROPH/DX INC INC 1ST >1 HR EGD 28221 [facility] TRANSORAL 8 [facility] BIOPSY INC INC SINGLE/MU LTIPLE ESOPHAGOG 4516 [facility] ASTRODUOD 8 [facility] ENOSCOPY INC INC WITH CLOSED BIOPSY US SOFT 35673 [facility] KELLY TORREZ 8 [facility]MAN P HEAD & IMAGING NECK REAL ASSOCIATE TIME S IMGE DOCM APPL 33169 [facility] MODALITY 8 [facility] 1/> AREAS INC INC VASOPNEUM ATIC DEVICES APPL 33296 [facility]AL[facility]/> AREAS INC [place] [address] [facility] 1/> [facility]AS 8 [facility] EACH 15 INC INC MIN NEUROMUSC REEDUCA PHYSICAL 55036 [facility] THERAPY 8 [facility] EVALUATIO INC INC N THERAPEUT 55210 [facility] IC PX 1/> 8 [facility] AREAS INC INC EACH 15 MIN EXERCISES CYTP 60245 [facility] MONY, CERV/VAG 8 [place] INC FRANCISCO JAVIER E AUTO TH[place] [address] [facility] THYROID 8 [facility] STIMULATI INC INC NG HORMONE TSH COMPREHEN 87989 [facility] SIVE 8 [facility] METABOLIC INC INC PANEL LIPID 18080 [facility] PANEL 8 [facility] INC INC BLOOD 10630 [facility] COUNT 8 [facility] COMPLETE INC INC AUTO&AUTO DIFRNTL WBC Encounters Encounter Start End Date Code Location Performer Type Date OFFICE 28357 [facility]ADO OUTPATIEN 7 7 [place] [facility] ORTHOPAED 15 IC MINUTES OFFICE 54039 [facility] 7 7 [place] [facility] VIS[facility] INTERNAL 15 MED MINUTES OFFICE 96265 ANITA VERNA OUTPATIEN 7 7 BUX, MD, T VISIT PSC 15 [facility]UTES [facility] T OFFICE 78137 [facility] 7 [facility] 10 MINUTES [facility] 7 7 [facility] T OFFICE 55564 [facility] 7 [facility] V[facility] 10 MINUTES [facility] T OFFICE 67397 [facility] 7 7 [facility] T VISIT 5 INC MINUTES OFFICE 36455 ANITA GILLESPIE OUTPATIEN 7 7 MD ROSA, T VISIT PSC 15 MINUTES [facility] 6 [facility] T EMERGENCY 06855 [facility] 6 6 [facility] VISIT INC HIGH SEVERITY& THREAT FUNJ OFFICE 49076 [facility]ANDU[facility] MIS OUTPATIEN 6 6 [facility] T VISIT INTERNAL 25 MED MINUTES OFFICE 92011 [facility] OUTPATIEN 6 6 [facility] T VISIT INTERNAL 15 MED MINUTES EMERGENCY 69971 [facility] 6 6 [facility] DEPARTMEN [facility] T VISIT LOW/MODER SEVERITY EMERGENCY 01995 DULCE MALDONADO 6 6 PHYSICIAN HENRRY DEPARTMEN S, [facility] T VISIT HIGH/URGE NT SEVERITY [facility] - 6 6 [facility] OUTPATIEN INC T OFFICE 42667 [facility] OUTPATIEN 6 6 PHYSICIAN TU T VISIT S GROUP 15 MINUTES OFFICE 30786 [facility] 6 6 [facility] T VISIT INTERNAL 25 MED MINUTES OFFICE 86543 [facility] OUTPATIEN 6 6 N T VISIT NEUROLOGY 10 MINUTES OFFICE 21122 [facility] CALLY CONSULTAT 6 6 N ION NEUROLOGY NEW/ESTAB PATIENT 60 MIN [facility] 6 6 [facility] T OFFICE 68075 [facility] 5 5 [place] [facility] T VISIT INTERNAL 25 MED MINUTES EMERGENCY 54325 [facility] DEPT 5 5 EMERGENCY GREG VISIT PHYS PSC HIGH SEVERITY& THREAT FUNCJ EMERGENCY 01363 [facility] 5 5 [facility] DEPARTMEN INC T VISIT LOW/MODER SEVERITY [facility] - 5 5 [facility] OUTPATIEN [facility] T EMERGENCY 02777 D[facility] MALDONAD[facility] DEPT 5 5 PHYSICIAN HENRRY VISIT S, [facility] HIGH SEVERITY& THREAT FUNCJ OFFICE 74958 [facility] 5 5 [place] [facility] T VISIT INTERNAL 15 MED MINUTES [facility] - 5 5 [facility] INPATIENT INC EMERGENCY 30913 D[facility] MALDONADO DEPT 5 5 [facility] HIGH SEVERITY& THREAT FUNCJ OFFICE 96282 [facility] 5 5 [facility] T VISIT INTERNAL 15 MED MINUTES EMERGENCY 40795 DULCE MALDONADO 5 5 PHYSICIAN HENRRY DEPARTMEN S, PLLC T VISIT HIGH/URGE NT SEVERITY [facility] T OFFICE 40120 [facility] OUTPATIEN 5 5 [place] ANN T VISIT INTERNAL 15 MED MINUTES EMERGENCY 96697 DULCE AVELAR DEPT 5 5 PHYSICIAN LUEVANO VISIT S, PLLC HIGH SEVERITY& THREAT FUNCJ OFFICE 05686 SHAMIKA LEE BUX ANJ OUTPATIEN 5 5 MD T NEW 30 MINUTES [facility] 5 5 HOSPITAL OUTPATIEN T OFFICE 04141 [facility] CONSULTAT 5 5 [facility] MEDICAL NEW/ESTAB G PATIENT 60 MIN OFFICE 13411 [facility] TOD OUTPATIEN 5 5 PHYSICIAN T VISIT S GROUP 15 MINUTES [facility] 5 5 [facility] T OFFICE 73305 [facility] 5 5 [place] T VISIT ORTHOPAED 15 [facility] MINUTES [facility] 5 5 [facility] T OFFICE 70547 [facility] 5 PHYSICIAN ION S GROUP NEW/ESTAB PATIENT 60 MIN OFFICE 88671 [facility]PAT[facility] 5 5 [facility] T VISIT INTERNAL 15 MED MINUTES OFFICE 08309 [facility] OUTPATI[facility] 5 5 [place] T VISIT ORTHOPAED 15 [facility] MINUTES [facility] 5 [facility] 5 5 [facility] - 5 5 [facility] OUTPAT[facility] INC T OFFICE 08654 [facility] CAMERON OUTPATIEN 5 5 [facility] NEW 20 HOSPITAL MINUTES P [facility] 5 5 [facility] T OFFICE 65506 [facility] CONSULTAT 5 5 [place] ION ORTHOPAED NEW/ESTAB ICS PLC PATIENT 60 MIN OFFICE 11978 [facility] OUTPATIEN 5 5 [facility] T VISIT INTERNAL 25 MED MINUTES [facility] 5 [facility] T OFFICE 71990 JAI VERGARA OUTPATIEN 4 4 T NEW 30 MINUTES OFFICE 92488 [facility] 4 4 [facility] ANN T VISIT INTERNAL 25 MED MINUTES OFFICE 34635 DIEGO WEBB OUTPATIEN 4 4 MEDICAL N CHR T VISIT SERV 15 FOUNDATIO MINUTES N OFFICE 66743 MOOSE VIRK OUTPATIEN 4 4 ROHAN ROHAN T VISIT 25 MINUTES OFFICE 97914 UNIVERSIT OUTPATIEN 4 4 Y T VISIT 5 [facility] 33324 [facility] RENDON CONSULTAT 4 4 ANN ANN ION NEW/ESTAB PATIENT 40 MIN OFFICE 00254 PETTEY PETTEY OUTPATIEN 4 4 JAM JAM T NEW 30 MINUTES OFFICE 37799 ADRIEL HAM ADRIEL HAM OUTPATIEN 4 4 T NEW 45 MINUTES OFFICE 94226 BESSON BESSON OUTPATIEN 4 4 ANN ANN T VISIT 15 MINUTES OFFICE 65118 ELIZABETH JOHNSON OUTPATIEN 4 4 AUDRA AUDRA T VISIT 15 MINUTES [facility] 3 [facility] T PERIODIC 63513 ELIZABETH ELIZABETH PREVENTIV 3 3 AUDRA AUDRA E MED EST PATIENT 40-64YRS OFFICE 07124 ADIS ADIS OUTPATIEN 3 3 JR LA LA T VISIT 15 MINUTES [facility] 3 [facility] T OFFICE 54612 MCKEMIE MCKEMIE OUTPATIEN 3 3 SOLEDAD SOLEDAD T VISIT 15 MINUTES OFFICE 45792 MCKEMIE MCKEMIE OUTPATIEN 3 3 JR SOLEDAD WALDRON SOLEDAD T VISIT 15 MINUTES Inpatient NORA Lal MD (IN) 3 12:54 3 08:20 [facility] EMERGENCY 41464 O'RACHELLE O'RACHELLE DEPT 3 3 CLAIRE CLAIRE VISIT HIGH SEVERITY& THREAT FUNCJ OFFICE 40757 MCKEMIE MCKEMIE OUTPATIEN 3 3 JR SOLEDAD WALDRON SOLEDAD T VISIT 15 MINUTES Emergency NIKKO Maldonado MD (ER) 3 18:31 3 20:05 [facility] EMERGENCY 72768 [facility] 3 3 [facility] DEPARTMEN INC T VISIT LOW/MODER SEVERITY [facility] 3 3 [facility] T EMERGENCY 58632 DENISSE MALDONADO 3 3 HENRRY HENRRY DEPARTMEN T VISIT MODERATE SEVERITY [facility] 3 3 [facility] T EMERGENCY 00336 SUSHIL EUBANKS DEPT 3 3 EMERGENCY VISIT SERVICES HIGH SEVERITY& THREAT FUNCJ OFFICE 09780 MCKEMIE MCKEMIE OUTPATIEN 2 2 JR SOLEDAD WALDRON SOLEDAD T VISIT 15 MINUTES EMERGENCY 67280 SUSHIL EUBANKS 2 2 EMERGENCY DEPARTMEN SERVICES T VISIT HIGH/URGE NT SEVERITY [facility] 2 [facility] T OFFICE 18361 MCKEMIE MCKEMIE OUTPATIEN 2 2 JR SOLEDAD WALDRON SOLEDAD T VISIT 15 MINUTES OFFICE 85585 MCKEMIE MCKEMIE OUTPATIEN 2 2 JR SOLEDAD ROWE T VISIT 10 MINUTES [facility] 2 2 [facility] T OFFICE 26386 WHANG VALERIA WHANG VALERIA OUTPATIEN 2 2 T VISIT 10 MINUTES [facility] 2 2 [facility] T [facility] 2 2 [facility] T OFFICE 35012 MCKEMIE MCKEMIE OUTPATIEN 2 2 JR SOLEDAD ROWE T VISIT 15 MINUTES [facility] 2 2 [facility] T OFFICE 12132 MCKEMIE MCKEMIE OUTPATIEN 2 2 JR SOLEDAD ROWE T VISIT 15 MINUTES OFFICE 98644 MCKEMIE MCKEMIE OUTPATIEN 2 2 JR SOLEDAD ROWE T VISIT 15 MINUTES [facility] 1 1 [facility] T OFFICE 00979 [facility] MCKEMIE OUTPATIEN 1 1 YAHAIRA ROWE T VISIT INTERNAL 15 MED MINUTES OFFICE 13178 C TYLER ALANIS OUTPATIEN 1 1 ANNABELLE Espinosa VISIT [facility] 10 MINUTES OFFICE 17312 GNOSTICISM IMAM MOH OUTPATIEN 1 1 CARDIOTHO T VISIT RACIC 10 SURGI MINUTES [facility] 1 [facility] T OFFICE 15160 C TYLER ALANIS CONSULTAT 1 1 ANNABELLE MORSE MD [facility] NEW/ESTAB PATIENT 60 MIN OFFICE 34641 [facility] MCKEMIE OUTPATIEN 1 1 YAHAIRA ROWE T VISIT INTERNAL 15 MED MINUTES [facility] 1 1 [facility] T OFFICE 03402 [facility] OUTPATIEN 0 0 [facility] T VISIT INTERNAL 15 MED MINUTES EMERGENCY 16676 [facility] 0 0 [facility] DEPARTMEN INC T VISIT MODERATE SEVERITY [facility] 0 0 [facility] T EMERGENCY 71897 SUSHIL MALDONADO DEPT 0 0 EMERGENCY HENRRY VISIT SERVICES HIGH SEVERITY& THREAT FUNCJ OFFICE 99579 GNOSTICISM IMAM MOH OUTPATIEN 0 0 CARDIOTHO T VISIT RACIC 10 SURGI MINUTES HOSPITAL CENTRAL - 0 0 GNOSTICISM OUTPATIEN HOSP T OFFICE 01926 GNOSTICISM IMAM MOH OUTPATIEN 0 0 CARDIOTHO T VISIT RACIC 10 SURGI MINUTES EMERGENCY 94280 SSUHIL LEAL 0 0 [facility]Y [facility] HIGH/URGE NT SEVERITY OFFICE 19823 [facility] PETTEY CONSULTAT 0 0 PHYSICIAN KERWIN Fernandez GROUP NEW/ESTAB PATIENT 60 MIN OFFICE 42283 [facility] OUTPATIEN 0 0 [facility] T VISIT INTERNAL 15 MED MINUT[facility] 0 0 [facility] 0 [facility] T OFFICE 19913 [facility] OUTPATIEN 0 0 [facility] T VISIT INTERNAL 25 MED MINUTES [facility] 0 0 [facility] 0 0 [facility] T OFFICE 14314 GNOSTICISM FLOWERS OUTPATIEN 0 0 CARDIOTHO SOLEDAD T VISIT RACIC 10 SURGI MINUTES OFFICE 29996 [facility] MCKEMIE OUTPATIEN 0 0 [facility], T VISIT INTERNAL SHRUTHI F 15 MED [facility] - 0 0 [facility] T [facility] 0 0 [facility] T OFFICE 00734 GNOSTICISMJesús FLOWERS OUTPATIEN 9 9 CARDIOTHO SOLEDAD T VISIT RACIC 10 SURGI MINUTES [facility] - 9 9 [facility] T OFFICE 41403 [facility] FLOWERS, OUTPATIEN 9 9 LAILA Francis T VISIT 10 MINUTES [facility] 9 9 [facility] T OFFICE 00056 [facility] FOLWERS, CONSULTAT 9 9 LAILA Francis LAILA Penny ION NEW/ESTAB PATIENT 40 MIN OFFICE 68039 [facility] BARB OUTPATIEN 9 9 YAHAIRA WALDRON T VISIT INTERNAL SHRUTHI F 15 MED MINUTES OFFICE 11512 [facility] WESKEANNIKAE OUTPATIEN 9 9 [facility] T VISIT INTERNAL SHRUTHI F 15 MED MINUTES [facility] 9 9 [facility] - 9 9 [facility] OUT[facility] INC T OFFICE 89481 YOGI BASS 9 9 MEDICAL KIRA D ION SERV NEW/ESTAB FOUNDATIO PATIENT 40 MIN EMERGENCY 07667 [facility] 9 9 [facility] DE[facility] T VISIT MODERATE SEVERITY [facility] 9 9 [facility] T EMERGENCY 94703 KEVIN MALDONADO, 9 9 [facility] T VISIT ON HIGH/URGE NT SEVERITY [facility] - 9 9 [facility] T OFFICE 42627 [facility] YOSELYN SZYMANSKI 9 9 YAHAIRA NOLAND T VISIT INTERNAL 15 MED MINUTES OFFICE 22625 [facility] BARB OUTPATIEN 8 8 YAHAIRA WALDRON T VISIT INTERNAL SHRUTHI F 15 MED MINUTES OFFICE 57395 CLAUDY FARRISPATIRAÚL 8 8 [facility] T VISIT SERV 15 FOUNDATIO MINUTES [facility] - 8 8 [facility] 8 8 [facility] T OFFICE 30343 YOSELYN FARRIS 8 8 [facility] T VISIT SERV 25 FOUNDATIO MINUTES [facility] - 8 8 [facility] T OFFICE 72002 YOGI FARRIS 8 8 MED[facility] SANTHOS[facility] ION SERV NEW/ESTAB FOUNDATIO PATIENT 60 MIN EMERGENCY 62664 [facility] 8 8 [facility] DEPART[facility] T VISIT MODERATE SEVERITY [facility] 8 8 [facility] T OFFICE 06968 YOSELYN FARRIS 8 8 MED[facility] SANTH[facility] T VISIT SERV 15 FOUNDATIO MINUTES [facility] - 8 8 [facility] T OFFICE 20532 YOGI FARRIS 8 8 MEDICAL SANTHOS[facility] ION SERV NEW/ESTAB FOUNDATIO PATIENT 60 MIN OFFICE 72240 [facility] BARB OUTPATIEN 8 8 Jesús SYED JR VISIT INTERNAL SHRUTHI F 15 MED MINUTES [facility] 8 8 [facility] 8 8 [facility] T OFFICE 11300 [facility] NESSA OUTPATIEN 8 8 [facility] LUDIN VISIT INTERNAL 25 MED MINUTES PERIODIC 96705 [facility] 8 8 [facility] EST CLINIC OF PATIENT 40-64YRS [facility] 44284 [facility] BARB TOPETE 8 8 Jesús SYED JR VISIT INTERNAL SHRUTHI 15 MED MINUTES [facility] - 8 8 [facility] OFF[facility] 06475 [facility] YOSELYN SZYMANSKI 8 8 YAHAIRA Espinosa VISIT INTERNAL 15 MED MINUTES OFFICE 90671 [facility] YOSELYN SZYMANSKI 8 8 YAHAIRA Espinosa VISIT INTERNAL 25 MED MINUTES
--- OUTSIDE RECORDS SUMMARY | 2017-08-21 23:31 | External Medical Summary Rpt | CCD ---
Author Author , JARROD Organization JARROD Address Unknown Phone [email or web address] Care Team Providers Care Data Processing Consultant Name Role Phone CAMERON ARIELLE, CAMERON Unavailable Unavailable ARIELLE ANITA LEE MD, PSC, Unavailable Unavailable ANITA LEE MD, PSC ADIS JR LA, Unavailable Unavailable ADIS JR LA ASLAM AZH, ASLAM AZH Unavailable Unavailable BEINEKE, BEINEKE Unavailable Unavailable BEINEKE FHAEEM, BEINEKE Unavailable Unavailable FAHEEM BESSON, BESSON Unavailable [...] NATHANIEL LEO, NATHANIEL Unavailable Unavailable LEO [facility], Unavailable Unavailable [facility] Unavailable INC, [facility] Unavailable Unavailable [facility]TH[facility]EDIC, [facility] Unavailable [facility]available [facility] SHIR[facility] & Unavailable Unavailable [...] [facility] ANESTH OF Unavailable Unavailable [facility], [facility] COOK, COOK Unavailable Unavailable EUGENIO LA, Unavailable Unavailable EUGENIO LA EUGENIO LA, Unavailable Unavailable EUGENIO LA EUGENIO, TAO, Unavailable Unavailable EUGENIO, TAO CORINA RAIMUNDO, CORINA Unavailable Unavailable RAIMUNDO MANDUJANO MIS, MANDUJANO MIS Unavailable Unavailable ALBERT OVIDIO, ALBERT OVIDIO Unavailable Unavailable DUFF, DUFF Unavailable Unavailable [facility] Un[facility] [place], [facility] Un[facility] [place] [facility] FALLUJI ROM, FALLUJI Unavailable Unavailable ROM FAUGHN LUEVANO, FAUGHN Unavailable Unavailable LUEVANO LEIZABETH AUDRA, Unavailable Unavailable ELIZABETH AUDRA ELIZABETH AUDRA, Unavailable Unavailable ELIZABETH AUDRA BEAN CHR, BEAN CHR Unavailable Unavailable DENISSE HENRRY, DENISSE Unavailable Unavailable HENRRY DENISSE, SHANNAN S, Unavailable Unavailable SHANNAN MALDONADO S [facility], Unavailable Unavailable [facility] Unavailable Unavailable [facility], [facility] Unavailable Unavailable MEDICAL, [facility] Unavailable Unavailable INC, [facility] Un[facility] Un[facility] P, [facility] NESSA, LUDIN, NESSA, Unavailable Unavailable [facility], Unavailable Unavailable [facility] LOZADA TRA, LOZADA TRA Unavailable Unavailable IMAM MOH, IMAM MOH Unavailable Unavailable VINCENT THOMAS, VINCENT Unavailable Unavailable THOMAS MONTANO SHANNON, MONTANO Unavailable Unavailable SHANNON MONTANO SHANNON, MONTANO Unavailable Unavailable SHANNON MEL FAUSTO, MEL Unavailable Unavailable FAUSTO SALGADO, SALGADO Unavailable Unavailable STEPHIE JOSS, STEPHIE JOSS Unavailable Unavailable [facility] Unavailable Unavailable MEDICAL G, [facility] MED[facility] G TOSHIA THO, TOSHIA THO Unavailable [...] Unavailable [facility] Unavailable Unavailable SPECIALISTS,, [facility], [facility] Unavailable Unavailable INTERNAL MED, [facility] DOUGHERTY ALEXUS, DOUGHERTY Unavailable Unavailable ALEXUS SHAMIKA HERNANDEZ MD Unavailable Unavailable BUX MD TERRANCE, KIRA D, TERRANCE, Unavailable Unavailable KIRA Russell ADRIEL HAM, ADRIEL HAM Unavailable Unavailable ADRIEL HAM, ADRIEL HAM Unavailable Unavailable [facility] Unavailable Unavailable SERVICES, [facility] MCKEMIE JR [facility], Unavailable Unavailable [facility], Unavailable Unavailable [facility] MCKEMIE JR, SHRUTHI Unavailable Unavailable F, MCKEMIE JR, SHRUTHI F MOOSE ROHAN, Unavailable Unavailable MOOSE ROHAN LORE MARK, LORE Unavailable Unavailable MARK LORE, HARMAN P, Unavailable Unavailable LORE, AHRMAN P TEJEDA SOLEDAD, TEJEDA SOLEDAD Unavailable Unavailable [...] JAVIER SYKES, Unavailable Unavailable FRANCISCO JAVIER SYKES [facility], Unavailable Unavailable [facility] Kendrick Lal MD, Unavailable Unavailable Kendrick Lal MD [facility], Unavailable Unavailable [facility] CHRIS MOURA, Unavailable Unavailable CHRIS MOURA, Unavailable Unavailable CHRIS Christianson MD, Unavailable Unavailable Monica Christianson MD [facility] # Unavailable Unavailable [id number], [facility] # [id number] KARLY CHRISTIAN, Unavailable Unavailable KARLY EUBANKS, TICO EUBANKS Unavailable Unavailable MERDAVID VALERIA, MERDAVID VALERIA Unavailable Unavailable Purpose Continuity of Care Document - 12-02-2007 through 2016 Problems Code Diagnosis DOS Provider Status M545 LOW BACK 04-27-2017 [facility] R300 DYSURIA 03-24-2017 [facility] [id number] SPONDYLOSIS 03-03-2017 ANITA LEE, W/O , PSC MYELOPATH/R ADICULOPATH Y LUMB RGN 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 [id number] OTHER LONG 02-24-2017 [facility] TERM [facility] [...] MEM HOSP HYPERTENSIO INC N I2510 [place] 12-31-2016 [facility] CORONARY [facility] ARTERY W/O INC ANGINA PECT[place]IS I739 PERIPHERAL 12-31-2016 [facility] VASCULAR [facility] DISEASE INC UNSPECIFIED M461 SACROILIITI 12-30-2016 [facility] S NOT [facility] ELSEWHERE INC CLASSIFIED I200 UNSTABLE 11-26-2016 [facility] ANGINA [facility] INC I209 ANGINA 11-26-2016 [facility] PHYSICIANS UNSPECIFIED GROUP 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 [facility] MEDICAL C TRICUSPID SERV [facility] INSUFFICIEN CY I6523 OCCLUSION & 11-26-2016 [facility] STENOSIS [facility] BILATERAL [facility]ING ASS CAROTID ARTERIES R0602 SHORTNESS 11-26-2016 [facility] OF BREATH [facility] INC Z955 PRESENCE OF 11-26-2016 [facility] CORONARY [facility] ANGIOPLASTY INC IMPLANT & GRAFT J449 CHRONIC 11-04-2016 [facility] OBSTRUCTIVE [facility]ICAL PULMONARY IMAGING ASS DISEASE UNS J9811 ATELECTASIS 11-04-2016 [facility] R05 COUGH 11-04-2016 [facility] R079 CHEST PAIN 11-04-2016 [facility]PEC[facility]IED [facility] I129 HYPERTENSIV 11-03-2016 [facility] Tovar CKD [facility] W/STAGE 1-4 HOSPITAL P CKD OR UNS CKD N189 CHRONIC 11-03-2016 [facility] KIDNEY [facility] DISEASE INC UNSPECIFIED Z720 TOBACCO USE 11-03-2016 [facility] INC K5900 CONSTIPATIO 08-27-2016 [facility] N [facility] UNSPECIFIED INTERNAL MED N390 URINARY 08-27-2016 [facility] TRACT [facility] INFECTION INTERNAL SITE NOT MED SPECIFIED R102 PELVIC AND 08-27-2016 [facility] PERINEAL [facility] PAIN INTERNAL MED [id number] ENCOUNTER 08-27-2016 [facility] GENERAL RTN W/O ABNORMAL FIND Z124 ENCOUNTER 08-27-2016 [facility] OTHER [facility] SCREENING INTERNAL MALIG MED NEOPLASM CERVIX K59007 PERSONAL 08-27-2016 [facility] HISTORY OF VALLEY COLONIC INTERNAL POLYPS MED Z1231 ENCOUNTER 08-26-2016 [facility] SCREENING MEDICAL MAMMO MALIG IMAGING ASS NEOPLASM BREAST Z5181 ENCOUNTER 08-05-2016 [facility] THERAPEUTIC LA DRUG LEVEL MONITORING R51 HEADACHE 06-11-2016 [facility] INTERNAL MED K219 GASTRO-ESOP 05-29-2016 [facility] REFLUX [facility] DISEASE INC WITHOUT ESOPHAGITIS L723 SEBACEOUS 05-29-2016 [facility] CYST [facility] INC L729 FOLLICULAR 05-29-2016 [facility], SKIN & SUBQ PLLC TISSUE UNS H6123 IMPACTED 03-20-2016 [facility] CERUMEN PHYSICIANS BILATERAL GROUP H6523 CHRONIC 03-20-2016 [facility] SEROUS PHYSICIANS OTITIS GROUP MEDIA BILATERAL G8929 OTHER 03-17-2016 [facility] CHRONIC [facility] PAIN INTERNAL MED R109 UNSPECIFIED 03-17-2016 [facility] ABDOMINAL [facility] PAIN INTERNAL MED G250 ESSENTIAL 01-23-2016 [facility] R202 PARESTHESIA 01-23-2016 [facility] OF [facility] K269 DUOD ULCR 11-12-2015 [facility] UNS AC SURGIAL OR CHRON ASSOCIATE W/O HEMORR OR PERF K3189 OTHER 11-12-2015 [facility] DISEASES OF SURGIAL STOMACH ASSOCIATE AND DUODENUM K319 DISEASE OF 11-12-2015 [facility] DUODENUM DUBILIER UNSPECIFIED R0789 OTHER CHEST 11-12-2015 [facility]IN SURGIAL ASSOCIATE R1013 EPIGASTRIC 11-12-2015 [facility] R634 ABNORMAL 11-12-2015 [facility] WEIGHT LOSS [...] 09-02-2015 [facility], NEURITIS PLLC UNSPECIFIED G39347 PAIN IN 09-02-2015 [facility]OWER [facility]ICAL [facility]G [facility] M68342 PAIN IN 09-02-2015 [facility] LEFT FOOT PHYSICIANS, PLLC [id number] UNSPECIFIED 09-02-2015 [facility] INJURY [facility]ICAL LEFT FOOT IMAGING ASS INITIAL ENCOUNTER H524 PRESBYOPIA 08-09-2015 [place] 25851 INTESTINAL 07-20-2015 [facility] INFECTIONS VALLEY DUE INTERNAL CLOSTRIDIUM MED DIFFICILE 96877 DEHYDRATION 07-08-2015 [facility] INC 16241 CORONARY 07-08-2015 [facility] [place] INC CORONARY ARTERY 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 07-08-2015 [facility] [...] IN SITU V4582 POSTSURG 07-08-2015 [facility] PERCUT [facility] TRANSLUMINA INC L COR ANGPLSTY STS 5849 ACUTE 07-07-2015 [facility] KIDNEY PH[facility]ANS, FAILURE PLLC UNSPECIFIED 37367 ABDOMINAL 07-07-2015 [facility] PA[facility], MEDICAL GENERALIZED IMAGING ASS 7823 EDEMA 07-02-2015 [facility] INTERNAL MED 5180 PULMONARY 06-30-2015 [facility]LL[facility]SE [facility] 77624 SWELLING OF 06-30-2015 [facility]B [facility] 5952 OTHER 06-19-2015 [facility] P 5989 UNSPECIFIED 06-19-2015 [facility] P 05217 URINARY 06-19-2015 [facility] [place] P 47389 OTHER 06-19-2015 [facility] ABNORMALITY ANESTH OF OF THE BLUE URINATION 17669 OTHER 06-04-2015 [facility] CHRONIC VAL[facility] PAIN INTERNAL MED 4019 UNSPECIFIED 06-04-2015 [facility] ESSENTIAL VAL[facility] HYPERTENSIO INTERNAL N MED 96610 INSOMNIA 06-04-2015 [facility] UNSPECIFIED VALLEY INTERNAL MED 496 CHRONIC 05-29-[address] [facility] [address] [facility] OBSTRUCTION INTERNAL NEC MED 5609 UNSPECIFIED 05-29-2015 [facility] INTESTINAL [facility] INTERNAL OBSTRUCTION MED 75913 DEGEN 2015 SHAMIKA LEE LUMBAR/LUMB OSACRAL INTERVERTEB RAL DISC 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 2015 SHAMIKA TERRY MD NEURITIS/RA DICULITIS UNSPEC 7873 FLATULENCE 2015 [facility] ERUCTATION [facility] GAS [facility] PAIN 12245 ABDOMINAL 2015 [facility], MEDICAL UNSPECIFIED IMAGING ASS SITE 4168 OTHER 05-15-2015 [facility] CHRONIC HEALTH PULMONARY MEDICAL G HEART DISEASES 4240 MITRAL 05-15-2015 [facility] VALVE HEALTH DISORDERS MEDICAL G 4242 TRICUSPID 05-15-2015 [facility] VALVE HEALTH DISORDERS MEDICAL G SPEC NONRHEUMATI C 85118 CHEST PAIN 05-15-2015 [facility] UNSPECIFIED HEALTH MEDICAL G 51487 OTHER CHEST 05-02-2015 [facility] PAIN HEALTH MEDICAL G V7281 PRE-OPERATI 05-02-2015 [facility] VE HEALTH CARDIOVASCU MEDICAL G LAR EXAMINATION 7936 NONSPEC ABN 04-25-2015 [facility] FINDNG RAD PHYSICIANS & OTH EXAM GROUP ABDOMINAL AREA 95345 OTHER 04-25-2015 [facility] ABNORMAL PHYSICIANS FINDING GROUP RADIOLOGICA L EXAM BREAST 5768 OTHER 04-10-2015 [facility] SPECIFIED MEDICAL DISORDERS IMAGING ASS OF BILIARY TRACT 7242 LUMBAGO 03-29-2015 [facility] 7906 OTHER 03-28-2015 [facility] ABNORMAL [facility] BLOOD INC CHEMISTRY 7881 DYSURIA 02-15-2015 [facility] 79097 ABDOMINAL 02-15-2015 [facility] PAIN OTHER MEDICAL SPECIFIED IMAGING ASS SITE 7245 UNSPECIFIED 02-07-2015 [facility] BACKACHE [facility] INC V571 OTHER 02-07-2015 [facility] PHYSICAL [facility] THERAPY INC 17867 UNSPECIFIED 02-06-2015 [facility]ION [facility] P 3384 CHRONIC 11-20-2014 [facility] PAIN VALLEY SYNDROME INTERNAL MED 13205 OSTEOARTHRO 11-20-2014 [facility] S UNSPEC VALLEY WHETHER INTERNAL GEN/LOC MED UNSPEC SITE 7213 LUMBOSACRAL 11-20-2014 [facility] SPONDYLOSIS IMAGING ASS WITHOUT MYELOPATHY V7612 OTHER 11-20-2014 [facility] SCREENING MEDICAL MAMMOGRAM IMAGING ASS 3831 CHRONIC 09-21-2014 J[facility] TU MASTOIDITIS 4760 CHRONIC 08-28-2014 [facility] LARYNGITIS 65363 ESOPHAGEAL 08-28-2014 [facility] REFLUX 4408 ATHEROSCLER 08-11-2014 [facility] OSIS OF VALLEY OTHER INTERNAL SPECIFIED MED ARTERIES 68788 ABDOMINAL 08-11-2014 [facility] PAIN, VALLEY EPIGASTRIC INTERNAL MED 67716 HYPOXEMIA 07-30-2014 [facility] MEDICAL 96753 OCCLUSION&S 06-27-2014 WY[facility] DINERO CAROTID ART W/O MENTION INFARCT 28152 DIAB W/O 06-26-2014 [facility] COMP TYPE YUR II/UNS NOT STATED UNCNTRL 42637 ELEVATED 06-26-2014 [facility] CARCINOEMBR YUR YONIC ANTIGEN 486 PNEUMONIA, 06-25-2014 MONTANO SHANNON ORGANISM UNSPECIFIED V7282 PRE-OPERATI 06-25-2014 MONTANO SHANNON VE RESPIRATORY EXAMINATION 4111 INTERMEDIAT 06-21-2014 [facility] , 69059 OSTEOARTHRO 06-12-2014 [facility] ANHAI SIS UNSPEC WHETHER GEN/LOC LOWER LEG 91721 OSTEOARTHRO 06-12-2014 [place] [facility] SIS UNSPEC SERV WHETHER FOUNDATION GEN/LOC ANK&FOOT 30978 PAIN IN 06-12-2014 [facility] ANAHI JOINT, LOWER LEG 94447 PAIN IN 05-10-2014 [facility] JOINT, ANN ANKLE AND FOOT 8248 UNSPECIFIED 05-10-2014 [facility] FRACTURE OF ANKLE 7177 CHONDROMALA 03-30-2014 [facility] JAM CHAIM OF PATELLA 87902 PES 03-30-2014 [facility] J[facility] ANSERINUS TENDINITIS OR BURSITIS 63521 OTHER 03-30-2014 [place] [address] 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 AD[facility] HAM LILI SYNDROME CERVICAL REGION 7234 BRACHIAL 03-23-2014 ADRIEL HAM NEURITIS OR RADICULITIS NOS 7226 DEGENERATIO 12-19-2013 ELIZABETH N AUDRA INTERVERTEB RAL DISC SITE UNSPEC 7292 UNSPECIFIED 12-19-2013 ELIZABETH NEURALGIA AUDRA NEURITIS AND RADICULITIS 64972 OTHER 10-31-2013 EUGEN[facility] SPECIFIED LA DISORDERS OF BREAST 2724 OTHER AND 10-12-2013 ELIZABETH UNSPECIFIED AUDRA HYPERLIPIDE LIN V7231 ROUTINE 10-12-2013 [facility] JR DARIUSZ AL EXAMINATION 06115 OCCL&STENOS 05-09-2013 EUGENIO MX&BILAT LA PRECERBRL ART W/O INFARCT 7295 PAIN IN 02-25-2013 BARB WALDRON SOFT [facility] TISSUES OF LIMB 5781 BLOOD IN 12-16-2012 [facility] STOOL [facility] INC 36318 DIVERTICULO 12-14-2012 [facility] ANN SIS OF COLON 0091 COLITIS 12-13-2012 [facility] ENTERIT&GAS LUDWIN TROENTERIT INF ORIGIN 2662 OTHER 10-25-2012 BARB WALDRON B-COMPLEX SOL[facility]AD DEFICIENCIE S 49126 ABDOMINAL 2012 [facility] PAIN RIGHT [facility] UPPER INC QUADRANT V8801 ACQUIRED 04-22-2012 [facility] ABSENCE OF MEDICAL BOTH CERVIX IMAGING ASS AND UTERUS 8470 NECK SPRAIN 09-04-2011 [facility] AND STRAIN [facility] INC 2113 BENIGN 06-10-2011 C [facility] NEOPLASM OF ANNABELLE COLON PSC V7651 SPECIAL 05-29-2011 [facility] SCREENING [facility] FOR INC MALIGNANT NEOPLASMS COLON 20544 UNSPECIFIED 05-22-2011 C T[facility] ANNABELLE CONSTIPATIO PSC N 5693 HEMORRHAGE 05-22-2011 C TYLER OF RECTUM ANNABELLE AND ANUS PSC 5283 CELLULITIS 04-11-2011 [facility] AND ABSCESS VALLEY OF ORAL INTERNAL SOFT MED TISSUES 05362 OTHER ACUTE 10-11-2010 [facility] POSTOPERATI SERVICES VE PAIN 7820 DISTURBANCE 10-11-2010 [facility] OF SKIN EMERGENCY SENSATION SERVICES 82465 OTHER 10-11-2010 [facility] SPECIFIED [facility] COMPLICATIO INC NS NEC V5869 LONG-TERM 09-04-2010 [facility] (CURRENT) EPISCOPAL USE OF HOSP OTHER MEDICATIONS 4928 OTHER 08-12-2010 [facility] EMPHYSEMA [facility] INTERNAL MED 7862 COUGH 08-11-2010 [facility] 95011 OTHER 08-10-2010 [facility] DISEASES OF EMERGENCY NASAL SERVICES CAVITY AND SINUSES 7291 UNSPECIFIED 08-10-2010 [facility] MYALGIA EM[facility]GENCY AND SERVICES MYOSITIS 26145 FEVER 08-10-2010 [facility] UNSPECIFIED [facility]ERGENCY SERVICES 490 BRONCHITIS 07-31-2010 [facility] NOT VALLEY SPECIFIED INTERNAL ACUTE OR MED CHRONIC 4919 UNSPECIFIED 01-30-2010 [facility] CHRONIC [facility] BRONCHITIS INC 4660 ACUTE 12-18-2009 [facility] BRONCHITIS [facility] INC 7859 OTHER 12-18-2009 [facility]MPTOMS MEDICAL INVOLVING IMAGING CARDIOVASCU ASSOCIATES LAR SYSTEM 4619 ACUTE 08-25-2009 [facility] SINUSITIS, VALLEY UNSPECIFIED INTERNAL MED 78736 PRIMARY 04-16-2009 [place] MEDICAL LOCALIZED SERV OSTEOARTHRO FOUNDATIO SIS LOWER LEG 6929 CONTACT 11-22-2008 [facility] DERMATITIS& VALLEY OTHER INTERNAL ECZEMA DUE MED UNSPEC CAUSE 99411 OTHER 09-25-2008 [facility] ANXIETY [facility] INTERNAL MED 4279 UNSPECIFIED 09-25-2008 [facility] CARDIAC VAL[facility] DYSRHYTHMIA INTERNAL MED 14312 ABDOMINAL 09-06-2008 [place] [facility] PAIN, SERV PERIUMBILIC FOUNDATIO 70809 ACUTE 07-02-2008 [facility] GASTRITIS [facility] WITHOUT INC MENTION OF HEMORRHAGE 82440 UNSPECIFIED 05-10-2008 [place] [facility] SERV ESOPHAGITIS FOUNDATIO 84656 ATROPHIC 05-10-2008 PATHOLOGY & GASTRITIS CYTOLOGY WITHOUT LAB MENTION OF HEMORRHAGE 71302 UNS 05-10-2008 [place] [facility] GASTRITIS&G SERV ASTRODUODIT FOUNDATIO IS W/O MENTION HEMORR 84861 DUODENITIS 05-10-2008 PATHOLOGY & WITHOUT CYTOLOGY MENTION OF LAB HEMORRHAGE 88508 EFFUSION OF 03-28-2008 [facility] C LOWER LEG EUGENIO JOINT 2409 GOITER, 03-17-2008 [facility] UNSPECIFIED [facility] IM[facility]ING ASSOC[facility]ATES 2410 NONTOXIC 03-17-2008 [facility] UNINODULAR [facility]P GOITER INC 08439 DYSPHAGIA 03-17-2008 [facility] DUE TO MEM HOSP CEREBROVASC INC ULAR DISEASE 7179 UNSPECIFIED 03-14-2008 [facility] INTERNAL [facility] DERANGEMENT INC OF KNEE 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 V762 SCREENING 03-09-2008 [facility] [place] INC MALIGNANT NEOPLASM OF THE CERVIX 7224 DEGENERATIO 02-14-2008 [facility] N OF VALLEY CERVICAL INTERNAL INTERVERTEB MED RAL DISC 49490 SPASM OF 02-14-2008 [facility] MUSCLE LONE OAK INTERNAL MED 462 ACUTE 01-18-2008 [facility] PHARYNGITIS [facility] INC 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 INC 460 ACUTE 01-13-2008 [facility] NASOPHARYNG VALLEY ITIS INTERNAL MED [id number] Chest pain [facility] [id number] Active [facility] 558.9 Colitis [facility] [id number] Chronic [facility] Allergies, Adverse Reactions, Alerts Type Allergy [...] 86 -2 -[address] ti ME 20 1- 5- 00 00 SI ve [...] ve LO 37 20 20 49 DE ME 40 17 17 17 AM 1 16 PH AR 10 MA CY MG OF TA CY BL NT ET HI AN A IN C BU 10 08 30 30 00 EA Ac ME 37 -2 -[address] ti [...] 07 08 30 30 00 EA Ac ME 37 -2 -[address] ti [...] 86 -2 -[address] ti ME 20 0- 8- 00 00 SI ve [...] ve LO 37 20 20 49 DE ME 40 17 17 17 AM 1 16 [...] ve LO 37 20 20 49 DE ME 40 17 17 17 AM 1 16 [...] 86 -1 -[address] ti ME 20 9- 4- 00 00 SI ve [...] 06 07 30 30 00 EA Ac ME 37 -1 -[address] ti [...] ve LO 37 20 20 48 DE ME 40 17 17 37 AM 1 26 [...] 86 -2 -[address] ti ME 20 1- 3- 00 00 SI ve OL 06 20 20 48 DE OL 39 17 17 83 9 28 PH TA AR RT MA RA CY TE OF 50 CY NT MG HI AN TA A B IN C BU 10 05 06 30 30 00 EA Ac ME 37 -2 -[address] ti [...] 86 -1 -[address] ti ME 20 8- 2- 00 00 SI ve OL 06 20 20 47 DE OL 39 17 17 28 9 69 PH TA AR RT MA RA CY TE OF 50 CY NT MG HI AN TA A B IN C BU 10 04 05 30 30 00 EA Ac ME 37 -1 -[address] ti [...] 5 73 PH CE AR TA MA NM CY NO PH OF N CY 10 NT -3 HI 25 AN A IN C ES 65 04 05 30 30 00 EA Ac CI 86 -1 -[address] ti TA 20 4- 2- 00 00 SI ve LO 37 20 20 48 DE ME 40 17 17 37 AM 1 26 [...] 86 -1 -[address] ti ME 20 7- 4- 00 SI ve OL [...] 03 04 30 30 00 EA Ac ME 37 -1 -[address] ti [...] 5 80 PH CE AR TA MA NM CY NO PH OF CY 7. NT [...] 5 86 PH CE AR TA MA NM CY NO PH OF N CY 10 NT -3 HI 25 AN A IN C ME 65 02 03 60 30 00 EA Ac TO 86 -1 -[address] ti ME 20 7- 7- 00 00 SI ve [...] 02 03 30 30 00 EA Ac ME 37 -1 -[address] ti [...] 86 -1 -[address] ti ME 20 8- 0- 00 00 SI ve [...] 5 90 PH CE AR TA MA NM CY NO PH OF N CY 10 [...] 01 02 12 30 00 EA Ac ME 78 -0 -[address] ti [...] 15 7- 7- 00 00 SI ve ME 02 20 20 47 DE ED 20 [...] 5 36 PH CE AR TA MA NM CY NO PH OF N CY 10 [...] 86 -1 -[address] ti ME 20 9- 0- 00 00 SI ve OL 06 20 20 45 DE OL 39 16 17 87 9 70 PH TA AR RT MA RA CY TE OF 50 CY NT MG HI AN TA A B IN C AL 00 12 01 12 30 00 EA Ac ME 78 -0 -[address] ti [...] RO 07 -2 SE 90 9- Lo NM 07 20 ng DE 22 13 er 0 20 Ac ti MG ve TA BL ET Li 00 04 1 No si 17 -2 no 23 9- Lo pr 75 20 ng il 91 13 er 0 10 Ac MG ti ve Ta bl et ME 00 04 1 No OT 00 -2 [...] er -A 2 CE Ac TA ti NM ve NO PH N 10 -3 25 [...] 51 04 2 No TO 07 -2 ME 90 8- Lo OL 80 20 ng OL 12 13 er 0 TA Ac RT ti RA ve TE 50 MG TA B FU 51 04 0 No RO 07 -1 SE 90 1- Lo NM 07 20 ng DE 32 13 er 0 40 Ac ti MG ve TA BL ET TR 65 10 10 0 90 30 EA 24 MC Ac AM 16 -2 -[address] 61 KE ti AD 20 SI 34 NM ve OL 62 20 20 DE E 71 11 11 JR HC 1 PH L AR WI 50 MA LL CY IA MG M OF F TA BL CY ET NT HI AN A AL 67 10 10 0 90 30 EA 24 MC Ac ME 25 -2 -[address] 61 KE ti AZ 30 1- - 00 SI 33 NM ve OL 90 20 20 DE E AM 21 11 11 JR 1 0 PH AR WI MG MA LL CY IA TA M BL OF F ET CY NT HI AN A CR 00 08 10 3 30 30 EA 23 MC Ac ES 31 -2 -[address] 76 KE ti TO 00 2- 1- 00 SI 62 NM ve R 75 20 20 DE E 10 19 11 11 JR 0 PH MG AR WI MA LL TA CY IA BL M ET OF F CY NT HI AN A LI 00 07 10 3 30 30 EA 23 BE Ac SI 17 -2 -[address] 37 SS ti NO 23 0- 1- 00 SI 00 ON ve ME 75 20 20 DE [place] [address] 0 PH EP 10 AR HE MA N MG CY A TA OF BL ET CY NT HI AN A ME 00 07 10 3 60 30 EA 23 BE Ac TO 09 -2 -[address] 36 SS ti ME 30 0- 1- 00 SI 99 ON [...] 0 DE RA [address] NM 6 PH EP DE AR HE MA N 10 CY A MG OF TA CY BL NT ET HI AN A ME 37 07 10 3 30 30 EA [...] ti 10 0- 1- 00 SI 97 NM ve 50 20 20 DE E 30 11 11 JR 1 PH AR WI MA LL CY IA M OF F CY NT HI AN A TR 00 08 10 4 15 4 EA 23 MC Ac IA 16 -2 -[address] 76 KE ti MC 80 2- 1- 00 SI 63 NM ve IN 00 20 20 DE E OL 31 11 11 JR ON 5 PH E AR WI 0. MA LL 02 CY IA 5% M OF F CR EA CY M NT HI AN A NM 00 09 09 0 30 30 EA 24 MC Ac RT 09 -2 -[address] 23 KE ti AZ 37 3- 3- 00 SI 05 NM ve AP 20 20 20 DE E IN 75 11 11 JR E 6 PH 30 AR WI MA LL MG CY IA M TA OF F BL ET CY NT HI AN A ME 37 07 09 3 30 30 EA [...] 0 DE RA [address] NM 6 PH EP DE AR HE MA N 10 CY A MG OF TA CY BL NT ET HI AN A ME 00 07 09 3 60 30 EA 23 BE Ac TO 09 -2 -[address] 36 SS ti ME 30 0- 2- 00 SI 99 ON [...] 0- 2- 00 SI 00 ON ve ME 75 20 20 DE [place] [address] 0 PH EP 10 AR HE MA N MG CY A TA OF BL ET CY NT HI AN A CR 00 08 09 3 30 30 EA 23 MC Ac ES 31 -2 -[address] 76 KE ti TO 00 2- 2- 00 SI 62 NM ve R 75 20 20 DE E 10 19 11 11 JR 0 PH MG AR WI MA LL TA CY IA BL M ET OF F CY NT HI AN A AL 67 09 09 0 90 30 EA 24 MC Ac ME 25 -2 -[address] 19 KE ti AZ 30 1- 1- 00 SI 16 NM ve OL 90 20 20 DE E AM 21 11 11 JR 1 0 PH AR WI MG MA LL CY IA TA M BL OF F ET CY NT HI AN A TR 65 09 09 0 90 30 EA 24 MC Ac AM 16 -2 -[address] 19 KE ti AD 20 1- 1- 00 SI 17 NM ve OL 62 20 20 DE E [...] 0 DE RA [address] NM 6 PH EP DE AR HE MA N 10 CY A MG OF TA CY BL NT ET HI AN A ME 00 07 08 3 60 30 EA 23 BE Ac TO 09 -2 -[address] 36 SS ti ME 30 0- 2- 00 SI 99 ON [...] 0- 2- 00 SI 00 ON ve ME 75 20 20 DE [place] [address] 0 PH EP 10 AR HE MA N MG CY A TA OF BL ET CY NT HI AN A TR 00 08 08 4 15 10 EA 23 MC Ac IA 16 -2 -[address] 76 KE ti MC 80 2- 2- 00 SI 63 NM ve IN 00 20 20 DE E OL 31 11 11 JR ON 5 PH E [place] 0. MA LL 02 CY IA 5% M OF F CR EA CY M NT HI AN A AL 67 08 08 0 90 30 EA 23 MC Ac ME 25 -2 -[address] 76 KE ti AZ 30 2- 2- 00 SI 64 NM ve OL 90 20 20 DE E AM 21 11 11 JR 1 0 PH AR WI MG MA LL CY IA TA M BL OF F ET CY NT HI AN A 00 08 08 0 60 30 EA 23 MC Ac 59 -1 -[address] 63 KE ti 10 1- 1- 00 SI 03 NM ve 50 20 20 DE E 30 11 11 JR 1 PH AR WI MA LL CY IA M OF F CY NT HI AN A AL 67 07 07 0 90 30 EA 23 BE Ac ME 25 -2 -[address] 36 SS [...] OF CY NT HI AN A ME 37 07 07 3 30 30 EA [...] 0 DE RA [address] NM 6 PH EP DE AR HE MA N 10 CY A MG OF TA CY BL NT ET HI AN A ME 00 07 07 3 60 30 EA 23 BE Ac TO 09 -2 -[address] 36 SS ti ME 30 0- 0- 00 SI 99 ON [...] ti 10 1- 1- 00 SI 96 NM ve 50 20 20 DE E 30 11 11 JR 1 PH AR [place] MA LL CY IA M OF F CY NT HI AN A ME 16 03 06 2 12 30 EA 21 MC Ac TO 71 -2 -[address] 78 KE ti CL 40 1- 0- 00 SI 49 NM ve OP 06 20 20 0 DE E RA 20 11 11 JR NM 6 PH DE AR WI MA LL 10 CY IA M MG OF F TA CY BL NT ET HI AN A 64 04 06 2 30 30 EA 22 MC Ac 67 -2 -[address] 21 KE ti 90 1- 0- 00 SI 02 NM ve 92 20 20 DE E 90 11 11 JR 6 PH AR [place] MA LL CY IA M OF F CY NT HI AN A ME 00 04 06 2 60 30 EA 22 MC Ac TO 09 -2 -[address] 21 KE ti ME 30 1- 0- 00 SI 03 NM ve OL 73 20 20 DE E OL 31 11 11 JR 0 PH TA AR WI RT MA LL RA CY IA TE M OF F 50 CY MG NT HI TA AN B A ME 37 06 06 2 30 30 EA 23 MC Ac IL 00 -2 -[address] 01 KE ti OS 00 0- 0- 00 SI 17 NM ve EC 45 20 20 DE E 50 11 11 JR OT 2 PH C AR WI 20 MA LL .6 CY IA M MG OF F TA CY BL NT ET HI AN A TR 65 06 06 0 90 30 EA 23 MC Ac AM 16 -2 -[address] 01 KE ti AD 20 0- 0- 00 SI 87 NM ve OL 62 20 20 DE E 71 11 11 JR HC 1 PH L AR WI 50 MA LL CY IA MG M OF F TA BL CY ET NT HI AN A CR 00 06 06 0 30 30 EA 23 MC Ac ES 31 -2 -[address] 01 KE ti TO 00 0- 0- 00 SI 88 NM ve R 75 20 20 DE E 10 19 11 11 JR 0 PH MG AR WI MA LL TA CY IA BL M ET OF F CY NT HI AN A AL 67 06 06 0 90 30 EA 23 MC Ac ME 25 -2 -[address] 01 KE ti AZ 30 0- 0- 00 SI 89 NM ve OL 90 20 20 DE E [...] TO 00 1- 0- 00 SI 41 NM ve R 75 20 20 DE E 10 19 11 11 JR 0 PH MG AR WI MA LL TA CY IA BL M ET OF F CY NT HI AN A ME 37 03 05 2 30 30 EA 21 MC Ac IL 00 -2 -[address] 78 KE ti OS 00 1- 0- 00 SI 42 NM ve EC 45 20 20 DE E 50 11 11 JR OT 2 PH C AR WI 20 MA LL .6 CY IA M MG OF F TA CY BL NT ET HI AN A ME 16 03 05 2 12 30 EA 21 MC Ac TO 71 -2 -[address] 78 KE ti CL 40 1- 0- 00 SI 49 NM ve OP 06 20 20 0 DE E RA 20 11 11 JR NM 6 PH DE AR WI MA LL 10 CY IA M MG OF F TA CY BL NT ET HI AN A 64 04 05 2 30 30 EA 22 MC Ac 67 -2 -[address] 21 KE ti 90 1- 0- 00 SI 02 NM ve 92 20 20 DE E 90 11 11 JR 6 PH AR WI MA LL CY IA M OF F CY NT HI AN A ME 00 04 05 2 60 30 EA 22 MC Ac TO 09 -2 -[address] 21 KE ti ME 30 1- 0- 00 SI 03 NM ve OL 73 20 20 DE E [...] 0 90 30 EA 22 BE Ac ME 25 -2 -[address] 62 SS [...] ti MC 80 7 7 SI 04 NM ve IN 00 20 20 DE E OL 31 11 11 JR ON 5 PH E AR [place] 0. MA LL 02 CY IA 5% M OF F CR EA CY M NT HI AN A 00 05 05 0 60 30 EA 22 Ac 59 -0 -[address] 45 KE ti 10 SI 24 NM ve 50 20 20 DE E 30 11 11 JR 1 PH AR [place] MA LL CY IA M OF F CY NT HI AN A AL 67 03 04 1 90 30 EA 21 Ac ME 25 -2 -[address] 78 KE ti AZ 30 SI 39 NM ve OL 90 20 20 DE E AM 21 11 11 JR 1 0 PH AR [place] MG MA LL CY IA TA M BL OF F ET CY NT HI AN A TR 65 03 04 1 90 30 EA 21 Ac AM 16 -2 -[address] 78 KE ti AD 20 SI 40 NM ve OL 62 20 20 DE E 71 11 11 JR HC 1 PH L AR [place] 50 MA LL CY IA MG M OF F TA BL CY ET NT HI AN A CR 00 03 04 2 30 30 EA 21 Ac ES 31 -2 -[address] 78 KE ti TO 00 SI 41 NM ve R 75 20 20 DE E 10 19 11 11 JR 0 PH MG AR WI MA LL TA CY IA BL M ET OF F CY NT HI AN A ME 37 03 04 2 30 30 EA 21 Ac IL 00 -2 -[address] 78 KE ti OS 00 SI 42 NM ve EC 45 20 20 DE E 50 11 11 JR OT 2 PH C AR [place] 20 MA LL .6 CY IA M MG OF F TA CY BL NT ET HI AN A 64 04 04 2 30 30 EA 22 Ac 67 -2 -[address] 21 KE ti 90 SI 02 NM ve 92 20 20 DE E 90 11 11 JR 6 PH AR WI MA LL CY IA M OF F CY NT HI AN A ME 00 04 04 2 60 30 EA 22 Ac TO 09 -2 -[address] 21 KE ti ME 30 SI 03 NM ve OL 73 20 20 DE E OL 31 11 11 JR 0 PH TA AR WI RT MA LL RA CY IA TE M OF F 50 CY MG NT HI TA AN B A 00 04 04 0 60 30 EA 22 MC Ac 59 -0 -[address] 01 KE ti 10 SI 02 NM ve 50 20 20 DE E 30 11 11 JR 1 PH AR [place] MA LL CY IA M OF F CY NT HI AN A ME 00 11 03 3 60 30 EA 20 BE Ac TO 09 -[address] 06 SS ti ME 30 SI 82 ON ve OL 73 [...] 1 90 30 EA 21 MC Ac ME 25 -2 -[address] 78 KE ti AZ 30 SI 39 NM ve OL 90 20 20 DE E AM 21 11 11 JR 1 0 PH AR [place] MG MA LL CY IA TA M BL OF F ET CY NT HI AN A TR 65 03 03 1 90 30 EA 21 MC Ac AM 16 -2 -[address] 78 KE ti AD 20 SI 40 NM ve OL 62 20 20 DE E 71 11 11 JR HC 1 PH L [place] 50 MA LL CY IA MG M OF F TA BL CY ET NT HI AN A CR 00 03 03 2 30 30 EA 21 MC Ac ES 31 -2 -[address] 78 KE ti TO 00 SI 41 NM ve R 75 20 20 DE E 10 19 11 11 JR 0 PH MG AR [place] MA LL TA CY IA BL M ET OF F CY NT HI AN A ME 37 03 03 2 30 30 EA 21 MC Ac IL 00 -2 -[address] 78 KE ti OS 00 SI 42 NM ve EC 45 20 20 DE E 50 11 11 JR OT 2 PH C AR [place] 20 MA LL .6 CY IA M MG OF F TA CY BL NT ET HI AN A ME 16 03 03 2 12 30 EA 21 MC Ac TO 71 -2 -[address] 78 KE ti CL 40 SI 49 NM ve OP 06 20 20 0 DE E RA 20 11 11 JR NM 6 PH DE AR [place] MA LL [...] OF CY NT HI AN A ME 37 11 02 3 30 30 EA [...] 90 KE ti AD 20 SI 01 NM ve OL 62 20 20 DE E 71 11 11 JR HC 1 PH L [place] 50 MA LL CY IA MG M OF F TA BL CY ET NT HI AN A AL 00 01 02 1 90 30 EA 20 MC Ac ME 78 -2 -[address] 90 KE ti AZ 11 SI 02 NM ve OL 07 20 20 DE E AM 90 11 11 JR 1 1 PH AR [place] MG MA LL CY IA TA M BL OF F ET CY NT HI AN A ME 00 11 02 3 60 30 EA 20 BE Ac TO 09 -1 -[address] 06 SS ti ME 30 9- 5- 00 SI 82 ON [...] MC 80 5- 5- 00 SI 38 NM ve IN 00 20 20 DE E [...] AD 20 1- 1- 00 SI 01 NM ve OL 62 20 20 DE E 71 11 11 JR HC 1 PH L AR WI 50 MA LL CY IA MG M OF F TA BL CY ET NT HI AN A AL 00 01 01 1 90 30 EA 20 MC Ac ME 78 -2 -[address] 90 KE ti AZ 11 1- 1- 00 SI 02 NM ve OL 07 20 20 DE E [...] OF CY NT HI AN A ME 37 11 01 3 30 30 EA [...] 9- 0- 00 SI 85 ON ve ME 75 20 20 [place] [address] 0 PH EP 10 AR HE MA N MG CY A TA OF BL ET CY NT HI AN A ME 00 11 01 3 60 30 EA 20 BE Ac TO 09 -1 -[address] 06 SS ti ME 30 9- 3- 00 SI 82 ON [...] OF CY NT HI AN A ME 37 11 12 3 30 30 EA [...] AD 20 0- 0- 00 SI 80 NM ve OL 62 20 20 DE E 71 10 10 JR HC 1 PH L AR WI 50 MA LL CY IA MG M OF F TA BL CY ET NT HI AN A AL 00 12 12 0 90 30 EA 20 MC Ac ME 78 -2 -[address] 47 KE ti AZ 11 0- 0- 00 SI 79 NM ve OL 07 20 20 DE E AM 90 10 10 JR 1 1 PH AR WI MG MA LL CY IA TA M BL OF F ET CY NT HI AN A LI 00 11 12 3 30 30 EA 20 BE Ac SI 17 -1 -[address] 06 SS ti NO 23 9- 0- 00 SI 85 ON ve ME 75 20 20 DE [place] 96 10 [...] MC 80 3- 3- 00 SI 36 NM ve IN 00 20 20 DE E [...] 0 90 30 EA 20 BE Ac ME 78 -1 -[address] 06 SS [...] -1 -[address] 06 SS ti ME 30 9- 9- 00 SI 82 ON ve OL 73 20 20 DE OL [address] 0 PH EP TA AR HE RT MA N RA CY A TE OF 50 CY MG NT HI TA AN B A ME 37 11 11 3 30 30 EA [...] NO 23 9 SI 85 ON ve ME 75 20 20 DE IL 96 10 [...] 0 DE RA [address] NM 6 PH EP DE AR HE MA N 10 CY A MG OF TA CY BL NT ET HI AN A ME 37 08 10 2 30 30 EA [...] -2 -[address] 79 SS ti ME 30 0- 8- 00 SI 03 ON ve OL 73 20 20 DE OL [address] 0 PH EP TA AR HE RT MA N RA CY A TE OF 50 CY MG NT HI TA AN B A AL 00 08 10 2 90 30 EA 18 BE Ac ME 78 -2 -[address] 79 SS [...] 0 DE RA [address] NM 6 PH EP DE AR HE MA N 10 CY A MG OF TA CY BL NT ET HI AN A LI 00 08 10 2 30 30 EA 18 BE Ac SI 17 -2 -[address] 79 SS ti NO 23 0- 8- 00 SI 09 ON ve ME 75 20 20 DE IL 96 10 [...] MC 80 7- 7- 00 SI 95 NM ve IN 00 20 20 DE E [...] OF CY NT HI AN A ME 37 08 09 2 30 30 EA [...] -2 -[address] 79 SS ti ME 30 0- 7- 00 SI 03 ON ve OL 73 20 20 DE OL [address] 0 PH EP TA AR HE RT MA N RA CY A TE OF 50 CY MG NT HI TA AN B A AL 00 08 09 2 90 30 EA 18 BE Ac ME 78 -2 -[address] 79 SS [...] 0- 7- 00 SI 09 ON ve ME 75 20 20 [place] [address] 0 PH EP 10 AR HE MA N MG CY A TA OF BL ET CY NT HI AN A ME 37 08 08 2 30 30 EA [...] -2 -[address] 79 SS ti ME 30 0- 0- 00 SI 03 ON ve OL 73 20 20 DE OL [address] 0 PH EP TA AR HE RT MA N RA CY A TE OF 50 CY MG NT HI TA AN B A AL 00 08 08 2 90 30 EA 18 BE Ac ME 78 -2 -[address] 79 SS [...] 0 DE RA [address] NM 6 PH EP DE AR HE MA N 10 CY A MG OF TA CY BL NT ET HI AN A LI 00 08 08 2 30 30 EA 18 BE Ac SI 17 -2 -[address] 79 SS ti NO 23 0- 0- 00 SI 09 ON ve ME 75 20 20 DE IL 96 10 [...] MC 80 9- 0- 00 SI 54 NM ve IN 00 20 20 DE E OL 31 10 10 JR ON 5 PH E AR [place] 0. MA LL 02 CY IA 5% M OF F CR EA CY M NT HI AN A AL 00 05 07 2 90 30 EA 17 BE Ac ME 78 -1 -[address] 66 SS [...] -1 -[address] 66 SS ti ME 30 9- 9- 00 SI 22 ON ve OL 73 20 20 DE OL [address] 0 PH EP TA AR HE RT MA N RA CY A TE OF 50 CY MG NT HI TA AN B A ME 37 05 07 2 30 30 EA [...] 06 KE ti TO 00 SI 29 NM ve R 75 20 20 DE E 10 19 10 10 JR 0 PH MG AR WI MA LL TA CY IA BL M ET OF F CY NT HI AN A LI 00 06 07 2 30 30 EA 18 MC Ac SI 17 -2 -[address] 06 KE ti NO 23 SI 30 NM ve ME 75 20 20 DE E [place] 96 10 10 JR 0 PH 10 AR [place] MA LL MG CY IA M TA OF F BL ET CY NT HI AN A CR 00 06 06 2 30 30 EA 18 MC Ac ES 31 -2 -[address] 06 KE ti TO SI 29 NM ve R 75 20 20 DE E 10 19 10 10 JR 0 PH MG AR WI MA LL TA CY IA BL M ET OF F CY NT HI AN A LI 00 06 06 2 30 30 EA 18 MC Ac SI 17 -2 -[address] 06 KE ti NO 23 SI 30 NM ve ME 75 20 20 DE E [place] 96 10 10 JR 0 PH 10 AR [place] MA LL MG CY IA M TA OF F BL ET CY NT HI AN A AL 00 05 06 2 90 30 EA 17 BE Ac ME 78 -1 -[address] 66 SS [...] -1 -[address] 66 SS ti ME 30 00 SI 22 ON ve OL 73 20 20 DE OL [address] 0 PH EP TA AR HE RT MA N RA CY A TE OF 50 CY MG NT HI TA AN B A ME 37 05 06 2 30 30 EA [...] 2 90 30 EA 17 BE Ac ME 78 -1 -[address] 66 SS [...] 43 KE ti NO 23 SI 61 NM ve ME 75 20 20 DE E [place] 96 10 10 JR 0 PH 10 AR [place] MA LL MG CY IA M TA OF F BL ET CY NT HI AN A CR 00 02 05 3 30 30 EA 16 MC Ac ES 31 -1 -[address] 43 KE ti TO 00 SI 62 NM ve R 75 20 20 DE E [...] -1 -[address] 66 SS ti ME 30 SI 22 ON ve OL 73 20 20 DE OL [address] 0 PH EP TA AR HE RT MA N RA CY A TE OF 50 CY MG NT HI TA AN B A ME 37 05 05 2 30 30 EA [...] 0 DE RA [address] NM 6 PH EP DE AR HE MA N 10 CY A MG OF TA CY BL NT ET HI AN A ME 16 10 04 3 12 30 EA 14 BE Ac TO 71 -1 -[address] 72 SS ti CL 40 SI 19 ON ve OP 06 20 20 0 DE RA [address] NM 6 PH EP DE AR HE MA N 10 CY A MG OF TA CY BL NT ET HI AN A ME 37 01 04 3 30 30 EA 16 MC Ac IL 00 -1 -[address] 00 KE ti OS 00 SI 11 NM ve EC 45 20 20 DE E 50 10 10 JR OT 2 PH C AR WI 20 MA LL .6 CY IA M MG OF F TA CY BL NT ET HI AN A ME 00 01 04 3 60 30 EA 16 MC Ac TO 09 -1 -[address] 00 KE ti ME 30 SI 13 NM ve OL 73 20 20 DE E OL 31 10 10 JR 0 PH TA AR WI RT MA LL RA CY IA TE M OF F 50 CY MG NT HI TA AN B A LI 00 02 04 3 30 30 EA 16 MC Ac SI 17 -1 -[address] 43 KE ti NO 23 SI 61 NM ve ME 75 20 20 DE E [place] 96 10 10 JR 0 PH 10 AR [place] MA LL MG CY IA M TA OF F BL ET CY NT HI AN A CR 00 02 04 3 30 30 EA 16 MC Ac ES 31 -1 -[address] 43 KE ti TO 00 SI 62 NM ve R 75 20 20 DE E 10 19 10 10 JR 0 PH MG AR WI MA LL TA CY IA BL M ET OF F CY NT HI AN A AL 00 02 04 2 90 30 EA 16 MC Ac ME 78 -2 -[address] 45 KE ti AZ 11 0 SI 59 NM ve OL 07 20 20 DE E AM 90 10 10 JR 1 1 PH AR WI MG MA LL CY IA TA M BL OF F ET CY NT HI AN A 00 02 04 2 60 30 EA 16 MC Ac 59 -2 -[address] 45 KE ti 10 0 SI 60 NM ve 50 20 20 DE E 30 10 10 JR 1 PH AR [place] MA LL CY IA M OF F CY NT HI AN A TR 65 02 04 2 90 30 EA 16 MC Ac AM 16 -2 -[address] 45 KE ti AD 20 SI 61 NM ve OL 62 20 20 DE E 71 10 10 JR HC 1 PH L AR WI 50 MA LL CY IA MG M OF F TA BL CY ET NT HI AN A TR 00 04 04 1 60 15 EA 17 MC Ac IA 16 -1 -[address] 25 KE ti MC 80 SI 54 NM ve IN 00 20 20 DE E OL 31 10 10 JR ON 5 PH E [place] 0. MA LL 02 CY IA 5% M OF F CR EA CY M NT HI AN A 00 02 03 2 60 30 EA 16 MC Ac 59 -2 -[address] 45 KE ti 10 SI 60 NM ve 50 20 20 DE E 30 10 10 JR 1 PH AR [place] MA LL CY IA M OF F CY NT HI AN A ME 16 10 03 2 12 30 EA 14 BE Ac TO 71 -1 -[address] 72 SS ti CL 40 SI 19 ON ve OP 06 20 20 0 DE RA [address] NM 6 PH EP DE AR HE MA N 10 CY A MG OF TA CY BL NT ET HI AN A ME 37 01 03 3 30 30 EA 16 MC Ac IL 00 -1 -[address] 00 KE ti OS 00 SI 11 NM ve EC 45 20 20 DE E 50 10 10 JR OT 2 PH C AR WI 20 MA LL .6 CY IA M MG OF F TA CY BL NT ET HI AN A ME 00 01 03 3 60 30 EA 16 MC Ac TO .0 ST 00 KE ti ME 30 8- 9 00 SI 13 NM ve OL 73 20 20 DE E OL 31 10 10 JR 0 PH TA AR WI RT MA LL RA CY IA TE M OF F 50 CY MG NT HI TA AN B A LI 00 02 03 3 30 30 EA 16 MC Ac SI 17 -1 -[address] 43 KE ti NO 23 SI 61 NM ve ME 75 20 20 DE E [place] 96 10 10 JR 0 PH 10 AR [place] MA LL MG CY IA M TA OF F BL ET CY NT HI AN A CR 00 02 03 3 30 30 EA 16 MC Ac ES 31 -1 -[address] 43 KE ti TO 00 SI 62 NM ve R 75 20 20 DE E 10 19 10 10 JR 0 PH MG AR WI MA LL TA CY IA BL M ET OF F CY NT HI AN A AL 00 02 03 2 90 30 EA 16 MC Ac ME 78 -2 -[address] 45 KE ti AZ 11 0 SI 59 NM ve OL 07 20 20 DE E AM 90 10 10 JR 1 1 PH AR [place] MG MA LL CY IA TA M BL OF F ET CY NT HI AN A TR 65 02 03 2 90 30 EA 16 MC Ac AM 16 -2 -[address] 45 KE ti AD 20 0 SI 61 NM ve OL 62 20 20 DE E 71 10 10 JR HC 1 PH L AR [place] 50 MA LL CY IA MG M OF F TA BL CY ET NT HI AN A LI 00 02 02 00 30 30 EA 16 BE Ac SI 17 -1 -[address] 43 SS ti NO 23 SI 61 ON ve ME 75 20 20 [place] [address] 0 PH EP 10 AR HE MA N MG CY A TA OF BL CY ET NT HI AN A CR 00 02 02 00 30 30 EA 16 MC Ac ES 31 -1 -[address] 43 KE ti TO 00 SI 62 NM ve R 75 20 20 DE E 10 19 10 10 JR 0 PH MG AR WI MA LL TA CY IA BL M ET OF F CY NT HI AN A TR 00 10 02 02 30 10 EA 14 MC Ac IA 16 -1 -[address] 73 KE ti MC 80 7- 6 00 SI 69 NM ve IN 00 20 20 DE E [...] 0 DE RA [address] NM 6 PH EP DE AR HE MA N 10 CY A MG OF CY TA NT BL HI ET AN A ME 37 01 02 01 30 30 EA 16 MC Ac IL 00 -1 -[address] 00 KE ti OS 00 8 SI 11 NM ve EC 45 20 20 DE E 50 10 10 JR OT 2 PH C AR WI 20 MA LL .6 CY IA M MG OF F CY TA NT BL HI ET AN A ME 00 02 01 60 30 EA 16 MC Ac TO -[address] 00 KE ti ME 30 8 SI 13 NM ve OL 73 20 20 DE E OL 31 10 10 JR 0 PH TA AR WI RT MA LL RA CY IA TE M OF F 50 CY NT MG HI AN TA A B AL 00 11 09 00 90 30 EA 16 MC Ac ME 78 -1 -[address] 00 KE ti AZ 11 SI 12 NM ve OL 07 20 20 DE E AM 90 10 10 JR 1 1 PH AR [place] MG MA LL CY IA TA M BL OF F ET CY NT HI AN A ME 37 11 09 00 30 30 EA 16 MC Ac IL 00 -1 -[address] 00 KE ti OS 00 SI 11 NM ve EC 45 20 20 DE E 50 10 10 JR OT 2 PH C AR WI 20 MA LL .6 CY IA M MG OF F CY TA NT BL HI ET AN A ME 00 11 09 00 60 30 EA 16 MC Ac TO -[address] 00 KE ti ME 30 SI 13 NM ve OL 73 20 20 DE E OL 31 10 10 JR 0 PH TA AR WI RT MA LL RA CY IA TE M OF F 50 CY NT MG HI AN TA A B LI 00 10 01 02 30 30 EA 14 BE Ac SI 17 -1 -[address] 73 SS ti NO 23 SI 72 ON ve ME 75 20 20 DE IL 96 09 [...] AD 20 8- 8- 00 SI 09 NM ve OL 62 20 20 DE E 71 10 10 JR HC 1 PH L AR [place] 50 MA LL CY IA MG M OF F TA CY BL NT ET HI AN A 00 01 01 00 60 30 EA 16 MC Ac 59 -1 -[address] 00 KE ti 10 8 8 SI 10 NM ve 50 20 20 DE E 30 10 10 JR 1 PH AR [place] MA LL CY IA M OF F CY NT HI AN A LI 00 10 12 01 30 30 EA 14 BE Ac SI 17 -1 -[address] 73 SS ti NO 23 SI 72 ON ve ME 75 20 20 [place] [address] 0 PH EP 10 AR HE MA N MG CY A TA OF BL CY ET NT HI AN A ME 37 10 12 02 30 30 EA 14 MC Ac IL 00 -1 -[address] 73 KE ti OS 00 SI 64 NM ve EC 45 20 20 DE E 50 09 09 JR OT 2 PH C AR WI 20 MA LL .6 CY IA M MG OF F CY TA NT BL HI ET AN A TR 65 10 12 02 90 30 EA 14 MC Ac AM 16 -1 -[address] 73 KE ti AD 20 7 SI 66 NM ve OL 62 20 20 DE E 71 09 09 JR HC 1 PH L AR WI 50 MA LL CY IA MG M OF F TA CY BL NT ET HI AN A ME 00 10 12 00 60 30 EA 14 BE Ac TO 09 -1 -[address] 73 SS ti ME 30 SI 71 ON ve OL 73 20 20 DE OL [address] 0 PH EP TA AR HE RT MA N RA CY A TE OF 50 CY NT MG HI AN TA A B 00 12 12 00 60 30 EA 15 MC Ac 59 -1 -[address] 61 KE ti 10 7 SI 52 NM ve 50 20 20 DE E 30 [...] 02 90 30 EA 14 MC Ac ME 78 -1 -[address] 73 KE ti AZ 11 7- 1- 00 SI 67 NM ve OL 07 20 20 DE E AM 90 09 09 JR 1 1 PH AR WI MG MA LL CY IA TA M BL OF F ET CY NT HI AN A TR 00 10 12 01 30 10 EA 14 MC Ac IA 16 -1 -[address] 73 KE ti MC 80 7- 7- 00 SI 69 NM ve IN 00 20 20 DE E OL 31 09 09 JR ON 5 PH E AR [place] 0. MA LL 02 CY IA 5% M OF F CR CY EA NT M HI AN A 00 11 12 00 60 30 EA 15 MC Ac 59 -1 -[address] 17 KE ti 10 7- 3- 00 SI 53 NM ve 50 20 20 DE E 30 09 09 JR 1 PH AR WI MA LL CY IA M OF F CY NT HI AN A LI 00 10 12 00 30 30 EA 14 BE Ac SI 17 -1 -[address] 73 SS ti NO 23 7- 3- 00 SI 72 ON ve ME 75 20 20 [place] [address] 0 PH EP 10 AR HE MA N MG CY A TA OF BL CY ET NT HI AN A AL 00 10 12 01 90 30 EA 14 MC Ac ME 78 -1 -[address] 73 KE ti AZ 11 7- 3- 00 SI 67 NM ve OL 07 20 20 DE E [...] OF CY NT HI AN A ME 37 10 12 01 30 30 EA 14 MC Ac IL 00 -1 -[address] 73 KE ti OS 00 7- 3- 00 SI 64 NM ve EC 45 20 20 DE E 50 09 09 JR OT 2 PH C AR WI 20 MA LL .6 CY IA M MG OF F CY TA NT BL HI ET AN A TR 65 10 12 01 90 30 EA 14 MC Ac AM 16 -1 -[address] 73 KE ti AD 20 7- 3- 00 SI 66 NM ve OL 62 20 20 DE E 71 09 09 JR HC 1 PH L AR WI 50 MA LL CY IA MG M OF F TA CY BL NT ET HI AN A AL 00 10 11 00 90 30 EA 14 MC Ac ME 78 -1 -[address] 73 KE ti AZ 11 7- 5- 00 SI 67 NM ve OL 07 20 20 DE E AM 90 09 09 JR 1 1 PH AR WI MG MA LL CY IA TA M BL OF F ET CY NT HI AN A TR 65 10 11 00 90 30 EA 14 MC Ac AM 16 -1 -[address] 73 KE ti AD 20 7- 5- 00 SI 66 NM ve OL 62 20 20 DE E 71 09 09 JR HC 1 PH L AR WI 50 MA LL CY IA MG M OF F TA CY BL NT ET HI AN A ME 37 10 11 00 30 30 EA 14 MC Ac IL 00 -1 -[address] 73 KE ti OS 00 7- 5- 00 SI 64 NM ve EC 45 20 20 DE E 50 09 09 JR OT 2 PH C AR WI 20 MA LL .6 CY IA M MG OF F CY TA NT BL HI ET AN A TR 00 10 11 00 30 10 EA 14 MC Ac IA 16 -1 -[address] 73 KE ti MC 80 7- 5- 00 SI 69 NM ve IN 00 20 20 DE E OL 31 09 09 JR ON 5 PH E AR [place] 0. MA LL 02 CY IA 5% M OF F CR CY EA NT M HI AN A 00 10 11 00 60 30 EA 14 MC Ac 59 -1 -[address] 73 KE ti 10 7- 5- 00 SI 65 NM ve 50 20 20 DE E 30 09 09 JR 1 PH AR WI MA LL CY IA M OF F CY NT HI AN A DO 53 10 11 00 20 10 EA 14 MC Ac XY 48 -1 -[address] 73 KE ti CY 90 7- 5- 00 SI 75 NM ve CL 11 20 20 DE E [...] 0 DE RA [address] NM 6 PH EP DE AR HE MA N 10 CY A MG OF CY TA NT BL HI ET AN A LI 00 05 10 05 30 30 EA 12 BE Ac SI 17 -1 -[address] 81 SS ti NO 23 9- 2- 00 SI 07 ON ve ME 75 20 20 DE IL 96 09 [...] -1 -[address] 81 SS ti ME 30 9- 2- 00 SI 04 ON [...] 9- 4- 00 SI 07 ON ve ME 75 20 20 [place] [address] 0 PH EP 10 AR HE MA N MG CY A TA OF BL CY ET NT HI AN A ME 37 06 09 03 30 30 EA 13 MC Ac IL 00 -1 -[address] 20 KE ti OS 00 9- 4- 00 SI 40 NM ve EC 45 20 20 DE E 50 09 09 JR OT 2 PH C AR WI 20 MA LL .6 CY IA M MG OF F CY TA NT BL HI ET AN A 00 09 09 00 60 30 EA 14 MC Ac 59 -1 -[address] 29 KE ti 10 7- 4- 00 SI 72 NM ve 50 20 20 DE E 30 09 09 JR 1 PH AR WI MA LL CY IA M OF F CY NT HI AN A TR 00 09 09 00 15 5 EA 14 MC Ac IA 16 -1 -[address] 29 KE ti MC 80 7- 4- 00 SI 74 NM ve IN 00 20 20 DE E OL 31 09 09 JR ON 5 PH E AR [place] 0. MA LL 02 CY IA 5% M OF F CR CY EA NT M HI AN A AL 00 09 09 00 90 30 EA 14 MC Ac ME 78 -1 -[address] 29 KE ti AZ 11 7- 4- 00 SI 71 NM ve OL 07 20 20 DE E AM 90 09 09 JR 1 1 PH AR WI MG MA LL CY IA TA M BL OF F ET CY NT HI AN A ME 00 05 09 03 60 30 EA 12 BE Ac TO 09 -1 -[address] 81 SS ti ME 30 9- 4- 00 SI 04 ON [...] 0 DE RA [address] NM 6 PH EP DE AR HE MA N 10 CY A MG OF CY TA NT BL HI ET AN A TR 65 09 09 00 90 30 EA 14 MC Ac AM 16 -1 -[address] 29 KE ti AD 20 7- 4- 00 SI 73 NM ve OL 62 20 20 DE E 71 09 09 JR HC 1 PH L AR WI 50 MA LL CY IA MG M OF F TA CY BL NT ET HI AN A ME 37 06 08 02 30 30 EA 13 MC Ac IL 00 -1 -[address] 20 KE ti OS 00 9- 7- 00 SI 40 NM ve EC 45 20 20 DE E [...] 0 DE RA [address] NM 6 PH EP DE AR HE MA [...] -1 -[address] 81 SS ti ME 30 9- 7- 00 SI 04 ON ve OL 73 20 20 DE OL [address] 0 PH EP TA AR HE RT MA N RA CY A TE OF 50 CY NT MG HI AN TA A B AL 00 08 08 00 90 30 EA 13 MC Ac ME 78 -1 -[address] 86 KE ti AZ 11 7- 7- 00 SI 90 NM ve OL 07 20 20 DE E AM 90 09 09 JR 1 1 PH AR WI MG MA LL CY IA TA M BL OF F ET CY NT HI AN A 00 08 08 00 60 30 EA 13 MC Ac 59 -1 -[address] 86 KE ti 10 7- 7- 00 SI 89 NM ve 50 20 20 DE E 30 09 09 JR 1 PH AR WI MA LL CY IA M OF F CY NT HI AN A LI 00 05 08 03 30 30 EA 12 BE Ac SI 17 -1 -[address] 81 SS ti NO 23 9- 7- 00 SI 07 ON ve ME 75 20 20 DE IL 96 09 [...] ti 10 7- 0- 00 SI 34 NM ve 50 20 20 DE E 30 [...] AD 20 7- 0- 00 SI 35 NM ve OL 62 20 20 DE E 71 09 09 JR HC 1 PH L AR WI 50 MA LL CY IA MG M OF F TA CY BL NT ET HI AN A LI 00 05 07 02 30 30 EA 12 BE Ac SI 17 -1 -[address] 81 SS ti NO 23 9- 0- 00 SI 07 ON ve ME 75 20 20 [place] [address] 0 PH EP 10 AR HE MA N MG CY A TA OF BL CY ET NT HI AN A AL 00 07 07 00 90 30 EA 13 MC Ac ME 78 -1 -[address] 53 KE ti AZ 11 7- 0- 00 SI 33 NM ve OL 07 20 20 DE E AM 90 09 09 JR 1 1 PH AR WI MG MA LL CY IA TA M BL OF F ET CY NT HI AN A ME 00 05 07 01 60 30 EA 12 BE Ac TO 09 -1 -[address] 81 SS ti ME 30 9- 0- 00 SI 04 ON ve OL 73 20 20 DE OL [address] 0 PH EP TA AR HE RT MA N RA CY A TE OF 50 CY NT MG HI AN TA A B ME 37 06 07 01 30 30 EA 13 MC Ac IL 00 -1 -[address] 20 KE ti OS 00 9- 0- 00 SI 40 NM ve EC 45 20 20 DE E [...] 0 DE RA [address] NM 6 PH EP DE AR HE MA [...] AD 50 9- 2- 00 SI 39 NM ve OL 17 20 20 DE E 10 09 09 JR HC 8 PH L AR WI 50 MA LL CY IA MG M OF F TA CY BL NT ET HI AN A LI 00 05 07 01 30 30 EA 12 BE Ac SI 17 -1 -[address] 81 SS ti NO 23 9- 2- 00 SI 07 ON ve ME 75 20 20 [place] [address] 0 PH EP 10 AR HE MA N MG CY A TA OF BL CY ET NT HI AN A 00 06 07 00 60 30 EA 13 MC Ac 59 -1 -[address] 20 KE ti 10 9- 2- 00 SI 38 NM ve 50 20 20 DE E 30 09 09 JR 1 PH AR WI MA LL CY IA M OF F CY NT HI AN A ME 37 06 07 00 30 30 EA 13 MC Ac IL 00 -1 -[address] 20 KE ti OS 00 9 2- 00 SI 40 NM ve EC 45 20 20 DE E 50 09 09 JR OT 2 PH C AR WI 20 MA LL .6 CY IA M MG OF F CY TA NT BL HI ET AN A ME 00 05 07 00 60 30 EA 12 BE Ac TO 09 -1 -[address] 81 SS ti ME 30 9 2- 00 SI 04 ON ve OL 73 20 20 DE OL [address] 0 PH EP TA AR HE RT MA N RA CY A TE OF 50 CY NT MG HI AN TA A B AL 00 06 07 00 90 30 EA 13 MC Ac ME 78 -1 -[address] 20 KE ti AZ 11 9 2- 00 SI 37 NM ve OL 07 20 20 DE E [...] ti 10 9- 4- 00 SI 88 NM ve 50 20 20 DE E 30 09 09 JR 1 PH AR WI MA LL CY IA M OF F CY NT HI AN A ME 37 02 06 03 30 30 EA 11 MC Ac IL 00 -1 -[address] 51 KE ti OS 00 7- 4- 00 SI 23 NM ve EC 45 20 20 DE E 50 09 09 JR OT 2 PH C AR WI 20 MA LL .6 CY IA M MG OF F CY TA NT BL HI ET AN A ME 00 02 06 03 60 30 EA 11 TORRES Ac TO 09 -1 -[address] 51 RV ti ME 30 7- 4- 00 SI 57 EY ve OL 73 20 20 DE OL 31 09 09 LORRIE 0 PH DI TA AR RT MA RA CY TE OF 50 CY NT MG HI AN TA A B AL 00 05 06 00 90 30 EA 12 MC Ac ME 78 -1 -[address] 80 KE ti AZ 11 9- 4- 00 SI 89 NM ve OL 07 20 20 DE E [...] 0 DE RA [address] NM 6 PH EP DE AR HE MA N 10 CY A MG OF CY TA NT BL HI ET AN A LI 00 05 06 00 30 30 EA 12 BE Ac SI 17 -1 -[address] 81 SS ti NO 23 9- 4- 00 SI 07 ON ve ME 75 20 20 DE IL 96 09 [...] 00 90 30 EA 12 BE Ac ME 78 -1 -[address] 39 SS [...] BL NT ET HI AN A ME 37 02 04 02 30 30 EA 11 MC Ac IL 00 -1 -[address] 51 KE ti OS 00 7- 3- 00 SI 23 NM ve EC 45 20 20 DE E [...] -1 -[address] 51 RV ti ME 30 7- 3- 00 SI 57 EY [...] EA NT M HI AN A ME 37 02 03 01 30 30 EA 11 MC Ac IL 00 -1 -[address] 51 KE ti OS 00 7- 6- 00 SI 23 NM ve EC 45 20 20 DE E 50 09 09 JR OT 2 PH C AR WI 20 MA LL .6 CY IA M MG OF F CY TA NT BL HI ET AN A ME 00 02 03 01 60 30 EA 11 TORRES Ac TO 09 -1 -[address] 51 RV ti ME 30 7- 6- 00 SI 57 EY [...] 00 90 30 EA 11 MC Ac ME 78 -1 -[address] 96 KE ti AZ 11 9- 6- 00 SI 91 NM ve OL 07 20 20 DE E AM 90 09 09 JR 1 1 PH AR WI MG MA LL CY IA TA M BL OF F ET CY NT HI AN A ME 00 02 03 00 21 6 EA 11 GA Ac TH 78 -2 -[address] 58 IN ti YL 15 3- 2- 00 SI 95 EY ve ME 02 20 20 DE ED 20 09 09 NM NI 7 PH CH SO AR AE LO MA L NE CY S 4 OF MG CY NT DO HI SE AN PK A 60 02 03 00 20 10 EA 11 GA Ac 50 -2 -[address] 58 IN ti 51 3- 2- 00 SI 96 EY ve 30 20 20 DE 90 09 09 NM 1 PH CH AR AE MA L CY S OF CY NT HI AN A 60 02 03 01 20 10 EA 11 GA Ac 50 -2 -[address] 58 IN ti 51 3- 2- 00 SI 96 EY ve 30 20 20 DE 90 09 09 NM 1 PH CH AR AE MA L CY S OF CY NT HI AN A ME 37 02 02 00 30 30 EA [...] 00 90 30 EA 11 MC Ac ME 78 -1 -[address] 51 KE ti AZ 11 7- 6- 00 SI 22 NM ve OL 07 20 20 DE E [...] -1 -[address] 51 RV ti ME 30 7- 6- 00 SI 57 EY ve OL 73 20 20 DE OL 31 09 09 LORRIE 0 PH DI TA AR RT MA RA CY TE OF 50 CY NT MG HI AN TA A B ME 00 11 01 60 30 EA 10 BE Ac TO 09 -1 -[address] 31 SS ti ME 30 7- 0- 00 SI 49 ON [...] 02 90 30 EA 10 MC Ac ME 78 -1 -[address] 31 KE ti AZ 11 7- 0- 00 SI 41 NM ve OL 07 20 20 DE E [...] CY ET NT HI AN A ME 37 11 01 01 30 30 EA [...] NO 23 7- 1- 00 SI 48 NM ve ME 75 20 20 DE E [place] 96 08 09 JR 0 PH 10 AR WI MA LL MG CY IA M TA OF F BL CY ET NT HI AN A AL 00 11 01 01 90 30 EA 10 MC Ac ME 78 -1 -[address] 31 KE ti AZ 11 7- 1- 00 SI 41 NM ve OL 07 20 20 DE E [...] -1 -[address] 31 SS ti ME 30 7- 1- 00 SI 49 ON ve OL 73 20 20 DE OL [address] 0 PH EP TA AR HE RT MA N RA CY A TE OF 50 CY NT MG HI AN TA A B ME 37 11 01 00 30 30 EA [...] ti 10 7- 8- 00 SI 55 NM ve 50 20 20 DE E 30 [...] BL NT ET HI AN A ME 37 11 12 00 30 30 EA [...] 00 90 30 EA 10 MC Ac ME 78 -1 -[address] 31 KE ti AZ 11 7- 4- 00 SI 41 NM ve OL 07 20 20 DE E AM 90 08 08 JR 1 1 PH AR WI MG MA LL CY IA TA M BL OF F ET CY NT HI AN A AL 00 11 11 00 12 4 EA 10 TORRES Ac ME 78 -1 -[address] 27 RV [...] -1 -[address] 27 KE ti ME 30 4- 0- 00 SI 68 NM ve OL 73 20 20 DE E OL 31 08 08 JR 0 PH TA AR WI RT MA LL RA CY IA TE M OF F 50 CY NT MG HI AN TA A B LI 00 11 11 00 30 30 EA 10 MC Ac SI 17 -1 -[address] 27 KE ti NO 23 4- 0- 00 SI 66 NM ve ME 75 20 20 DE E IL 96 [...] 3- 3- 00 SI 91 Av ve ME 75 20 20 DE ai IL 96 08 08 la 0 PH bl 10 AR e MA MG CY TA OF BL CY ET NT HI AN A AL 00 10 10 00 90 30 EA 99 No Ac ME 78 -1 -[address] 84 t [...] -1 -[address] 84 t ti ME 30 3- 3- 00 SI 92 Av [...] 2- 6- 00 SI 22 Av ve ME 75 20 20 DE ai IL 96 [...] OF CY NT HI AN A ME 37 07 09 01 30 30 EA [...] -1 -[address] 35 t ti ME 30 2- 6- 00 SI 19 Av [...] 00 90 30 EA 99 No Ac ME 78 -1 -[address] 46 t [...] DE ai RA 20 08 08 la NM 6 PH bl DE AR e MA [...] 00 90 30 EA 99 No Ac ME 78 -1 -[address] 04 t [...] -1 -[address] 35 t ti ME 30 2- 8- 00 SI 19 Av [...] 2- 8- 00 SI 22 Av ve ME 75 20 20 DE [place] 96 [...] OF CY NT HI AN A ME 37 07 08 00 30 30 EA [...] 00 90 30 EA 98 No Ac ME 78 -1 -[address] 69 t [...] 2- 7- 00 SI 22 Av ve ME 75 20 20 DE ai [place] 96 08 08 la 0 PH bl 10 AR e MA MG CY TA OF BL CY ET NT HI AN A ME 00 06 07 01 60 30 EA 98 No Ac TO 09 -1 -[address] 35 t ti ME 30 2- 7- 00 SI 19 Av [...] 00 90 30 EA 98 No Ac ME 78 -1 -[address] 35 t [...] 2- 3- 00 SI 22 Av ve ME 75 20 20 DE ai IL 96 [...] -1 -[address] 35 t ti ME 30 2- 3- 00 SI 19 Av [...] 4- 2- 00 SI 96 Av ve ME 75 20 20 DE [place] 96 08 08 la 0 PH bl 10 AR e MA MG CY TA OF BL CY ET NT HI AN A AL 00 05 05 00 90 30 EA 97 No Ac ME 78 -1 -[address] 98 t [...] 4- 4- 00 SI 96 Av ve ME 75 20 20 DE [place] 96 08 08 la 0 PH bl 10 AR e MA MG CY TA OF BL CY ET NT HI AN A NA 00 02 04 01 60 30 EA 96 No Ac ME 09 -0 -[address] 62 t ti OX 30 2- 4- 00 SI 46 Av ve EN 14 20 20 DE ai 90 08 08 la 50 1 PH bl 0 AR e MG MA CY TA BL OF ET CY NT HI AN A AL 00 04 04 00 90 30 EA 97 No Ac ME 78 -1 -[address] 60 t [...] DE ai ZA 80 08 08 la ME 1 PH bl IN AR e E [...] 5- 7- 00 SI 36 Av ve ME 75 20 20 DE ai [place] 96 [...] 00 90 30 EA 97 No Ac ME 78 -1 -[address] 17 t [...] 00 90 30 EA 96 No Ac ME 78 -1 -[address] 75 t [...] 5- 6- 00 SI 36 Av ve ME 75 20 20 DE ai [place] 96 [...] 00 60 30 EA 96 No Ac ME 09 -0 -[address] 62 t [...] 00 90 30 EA 96 No Ac ME 78 -1 -[address] 31 t [...] 5- 4- 00 SI 36 Av ve ME 75 20 20 DE [place] 96 [...] Procedure DOS Code Location Performer Comment RADEX 64983 [facility] SPINE 7 [facility] LUMBOSACR ORTHOPAED AL 2/3 IC VIEWS CULTURE 23325 COMBINED COMBINED BACTERIAL 7 PHYSICIAN PHYSICIAN S LA S LA QUANTTATI VE COLONY COUNT URINE URNLS DIP 60134 [facility] 7 [facility] STICK/TAB INTERNAL LET RGNT MED NON-AUTO W/O MICRSCP DRUG TEST 87226 [facility] PRSMV 7 [facility] QUAL DIR INC INC OPTICAL OBS PER DAY DRUG 35503 [facility] SCREENING 7 [facility] OPIOIDS INC INC & OPIATE ANALOGS 5/MORE DRUG 26656 [facility] SCREENING 7 [facility] INC INC BENZODIAZ EPINES 1-12 DRUG 88179 [facility] SCREENING 7 [facility] INC [place] NJX 12152 ANITA BUX DX/THER 7 MD ROSA, SBST PSC INTRLMNR LMBR/SAC W/IMG GDN COLLECTIO 51025 [facility] N VENOUS 7 [facility] BLOOD INC INC VENIPUNCT URE BASIC 49998 [facility] METABOLIC 7 [facility] PANEL [place] IN[place] [address] ANITA DUFF JOINT 7 MD ROSA, ARTHRGRP PSC Y&/ANES/S TEROID W/MICHELLE UNCLASSIF J3490 [facility] IED DRUGS 7 [facility] INC INC UNCLASSIF J3490 [facility] IED DRUGS 7 [facility] INC INC CV STRS 30993 [facility] ROZ TST 7 PHYSICIAN XERS&/OR S GROUP RX CONT ECG W/O I&R CV STRS 78447 [facility] TST 7 [facility] XERS&/OR INC INC RX CONT ECG TRCG ONLY MYOCARDIA 90322 [facility] L SPECT 7 [facility] MULTIPLE INC INC STUDIES ECHO 05087 [facility] TTHRC R-T 7 [facility] 2D INC INC W/WOM-MOD E COMPL SPEC&COLR D DUPLEX 59139 [facility] SCAN 7 MEDICAL EXTRACRAN IMAGING IAL ART ASS COMPL BI STUDY LIPID 43132 [facility] PANEL 7 [facility] INC INC COLLECTIO 61456 [facility] N VENOUS 7 [facility] BLOOD INC INC VENIPUNCT URE DRUG TEST 51049 [facility] W[facility] PRSMV 7 [facility] QUAL DIR INC INC OPTICAL OBS PER DAY ECG 28196 [facility] ROUTINE 7 [facility] ECG INC INC W/LEAST 12 LDS TRCG ONLY W/O I&R RADIOLOGI 22380 [facility] C EXAM 6 [facility] CHEST 2 INC INC VIEWS FRONTAL&[place] [address] [facility] TROPONIN 6 [facility] QUANTITAT INC INC ANUPAMA BLOOD 78105 [facility] COUNT 6 [facility] COMPLETE INC INC AUTO&AUTO DIFRNTL WBC SMR PRIM 08195 [facility] SRC 6 [facility] GRAM/GIEM INC INC SA STAIN BCT FUNGI/ADAMA L CREATINE 63076 [facility] KINASE 6 [facility] TOTAL INC INC BASIC 26261 [facility] METABOLIC 6 [facility] PANEL INC INC CALCIUM TOTAL CREATINE 75439 [facility] KINASE MB 6 [facility] FRACTION INC INC ONLY HOSP[facility] G0378 [facility] OBSERVATI 6 [facility] ON INC INC SERVICE PER HOUR COLLECTIO 53191 [facility] N VENOUS 6 [facility] BLOOD INC INC VENIPUNCT URE CUL BACT 16970 [facility] XCPT 6 [facility] URINE INC INC BLOOD/ST[facility] G0378 [facility] OBSERVATI 6 [facility] [place] [address] [facility] LACTATE 6 [facility] INC INC THROMBOPL 54071 [facility] ASTIN 6 [facility] TIME INC INC PARTIAL PLASMA/WH OLE BLOOD PROTHROMB 67696 [facility] IN TIME 6 [facility] INC INC THER 77199 M[facility] PROPH/DX 6 [facility] NJX IV INC INC PUSH SINGLE/1S T SBST/DRUG ECG 58980 [facility] ROUTINE 6 [facility] ECG INC INC W/LEAST 12 LDS TRCG ONLY W/O I&R PRESSURIZ 88253 [facility] ED/NONPRE 6 [facility] SSURIZED INC INC INHALATIO N TREATMENT THERAPEUT 34072 [facility] IC 6 [facility] INJECTION INC INC IV PUSH EACH NEW DRUG CREATINE 50939 [facility] KINASE 6 [facility] TOTAL INC INC RADIOLOGI 31043 M[facility] C EXAM 6 [facility] CHEST 2 INC INC VIEWS FRONTAL&L ATERAL CULTURE 80870 [facility] BACTERIAL 6 [facility] BLOOD INC INC AEROBIC W/ID ISOLATES NATRIURET 67266 [facility] IC 6 [facility] PEPTIDE INC INC BLOOD 49989 [facility] COUNT 6 [facility] COMPLETE INC INC AUTO&[place] [address] [facility] TROPONIN 6 [facility] QUANTITAT INC INC ANUPAMA ECG 54955 M[facility] LAL ROUTINE 6 [facility] W/LEAST P 12 LDS I&R ONLY COLLECTIO 03107 [facility] N VENOUS 6 [facility] BLOOD INC INC VENIPUNCT URE COMPREHEN 34407 [facility] SIVE 6 [facility] METABOLIC INC INC PANEL CREATINE 92669 [facility] KINASE MB 6 [facility] FRACTION INC INC ONLY CULTURE 32765 COMBINED COMBINED BACTERIAL 6 PHYSICIAN PHYSICIAN S LA S LA QUANTTATI VE COLONY COUNT URINE CYTP C/V 39546 [facility], PICKLESIM AUTO THIN 6 LLC ER JR DARIUSZ LYR PREPJ SCR MNL RESCR PHYS URNLS DIP 71339 [facility] MANDUJANO MIS 6 [facility] STICK/TAB INTERNAL LET RGNT MED NON-AUTO W/O MICRSCP BLOOD 95202 [facility] DELBERT MIS OCCULT 6 [facility] PEROXIDAS INTERNAL E ACTV MED QUAL FECES 1 DETER SCREENING G0202 [facility] BEINE 6 MEDICAL MAMMOGRAP IMAGING HY NIESHA ASS INCL CAD WHEN PERFORMD DRUG TST G0477 COMBINED NATHANIEL PRESUMP;C 6 PHYSICIAN LEO P[place] [address] [facility] HEAD/BRAI 6 [facility] N W/O INC INC CONTRAST MATERIAL URNLS DIP 35512 [facility] WUON 6 [facility] STICK/TAB INC INC LET REAGENT AUTO MICROSCOP Y REMOVAL 40965 [facility] IMPACTED 6 PHYSICIAN TU ZUNIGA S GROUP INSTRUMEN TATION UNILAT DRUG TST G0477 COMBINED COMBINED PRESUMP;C 6 PHYSICIAN PHYSICIAN PBL BEING S LA S LA READ DC OPT OBV ONLY ECG RTN G0403 COMBINED COMBINED ECG W/12 6 PHYSICIAN PHYSICIAN LEADS SCR S LA S LA INIT PREVNTV PE W/I&R NERVE 17949 [facility] CALLY CONDUCTIO 6 N N STUDIES NEUROLOGY 9-10 STUDIES NEEDLE 15712 [facility] EMG EA 6 N EXTREMTY NEUROLOGY W/[place] [address] CHIPPS VINCENT SURG 6 SHIRLEY & THOMAS PATHOLOGY DUBILIER GROSS&HENRRY ROSCOPIC EXAM EGD 47778 [facility] TOSHIA THO TRANSORAL 6 L SURGIAL BIOPSY SINGLE/MU ASSOCIATE LTIPLE ANES 55335 [facility] UPPER GI 6 [facility] SUKH ENDOSCOPY ANESTHESI PROXIMAL A TO DUODENUM IMMUNOASS 54740 [facility] AY 5 [facility] ANALYTE [facility] HOLDINGS QUAL/[place] [address] LAB [facility] GAMMAGLOB 5 [facility] KELTON ULIN IGA HOLDINGS HOLDINGS IGD IGG IGM EACH RADIOLOGI 16238 [facility] MONTANO C 5 RADIOLOGY SHANNON EXAMINATI ASSOC ON CHEST SINGLE VIEW FRONTAL ECG 87767 [facility] ROUTINE 5 EMERGENCY GREG ECG PHYS PSC W/LEAST 12 LDS I&R ONLY BLOOD 14802 [facility] COUNT 5 [facility] COMPLETE INC INC AUTO&AUTO DIFRNTL WBC RADIOLOGI 16112 [facility] C 5 MEDICAL LA EXAMINATI IMAGING ON TIBIA ASS & FIBULA 2 VIEWS RADEX 97617 [facility] FOOT 5 MEDICAL LA COMPLETE IMAGING MINIMUM 3 ASS VIEWS COMPREHEN 79161 [facility] SIVE 5 [facility] METABOLIC INC INC PANEL OPHTH 65147 [facility] SCIFR MEDICAL 5 ANG ANG XM&EVAL COMPRHNSV ESTAB PT 1/> HOSPITAL 35633 [facility] DISCHARGE 5 [facility] DAY INTERNAL MANAGEMEN MED T 30 MIN/< ECG 26093 [facility] LAL ROUTINE 5 [facility] W/LEAST P 12 LDS I&[place] [address] [facility] ABDOMEN & 5 MEDICAL FAHEEM PELVIS IMAGING W/O ASS CONTRAST MATERIAL INITIAL 81391 [facility] OBSERVATI 5 [facility] ON INTERNAL CARE/DAY MED 30 MINUTES RADIOLOGI 00998 [facility] ALL C EXAM 5 MEDICAL CHEST 2 IMAGING VIEWS ASS FRONTAL&L ATERAL ANES 26732 [facility] OVIDIO TRANSURET 5 ANESTH HRAL OF THE W/URETHRO BLUE CYSTOSCOP Y NOS PRESSURIZ 83070 [facility] ED/NONPRE 5 [facility] SSURIZED INC INC INHALATIO N TREATMENT CYSTO 09989 [facility] CALIBRATI 5 [facility] ON DILAT INC INC URTL STRIX/ANN NOS HOSPITAL 76327 [facility] DISCHARGE 5 [facility] DAY INTERNAL MANAGEMEN MED T 30 MIN/< INITIAL 76919 [facility] INPATIENT 5 PHYSICIAN CAM CONSULT S GROUP NEW/ESTAB PT 55 MIN INITIAL 72729 [place] [address] [facility] ANN CARE/DAY INTER[place] [address] [place] [address] [facility] & 5 MEDICAL FAHEEM PELVIS IMAGING W/O ASS CONTRAST MATERIAL CV STRS 13239 [facility] TST 5 NE [facility] ROM XERS&/OR MEDICAL RX CONT G ECG I&R ONLY ECHO 84014 [facility] 2D MEDICAL W/WOM-MOD G E COMPL SPEC&COLR D ECHO 27472 [facility] R-T [address] [place] [address] 2D W/WOM-MOD E COMPL SPEC&COLR D CV STRS [address] XERS&/OR RX CONT ECG TRCG ONLY MRI 72560 [facility] ABDOMEN 5 MEDICAL LA W/O IMAGING CONTRAST ASS MATERIAL BLOOD 46576 [facility] COUNT 5 [facility] COMPLETE INC INC AUTO&[place] [address] [facility] LIPASE 5 [facility] INC INC COLLECTIO 90656 [facility] N VENOUS 5 [facility] BLOOD INC INC VENIPUNCT URE COMPREHEN 40147 [facility] SIVE 5 [facility] [place] [address] [facility] AMYLASE 5 [facility] INC INC MRI 09377 [facility] LOZADA TRA SPINAL 5 [place] CANAL ORTHOPAED LUMBAR [facility] W/O CONTRAST MATERIAL RADIOLOGI 67029 [facility] EU[facility] C EXAM 5 MEDICAL LA CHEST 2 IMAGING VIEWS ASS FRONTAL&L ATERAL APPL 61957 [facility] MODALITY 5 [facility] 1/> AREAS INC INC ELEC STIMJ UNATTENDE D APPLICATI 57562 [facility] ON 5 [facility] MODALITY INC INC 1/> AREAS HOT/COLD PACKS APPL 77758 [facility] MODALITY 5 [facility] 1/> AREAS INC INC ULTRASOUN D EA 15 MIN APPL 92304 [facility] MODALITY 5 [facility] 1/> AREAS INC INC ULTRASOUN D EA 15 MIN APPL 99525 [facility] MODALITY 5 [facility] 1/> AREAS INC INC ULTRASOUN D EA 15 MIN APPLICATI 57806 [facility] ON 5 [facility] MODALITY INC INC 1/> AREAS HOT/COLD PACKS APPL 27452 [facility] MODALITY 5 [facility] 1/> AREAS INC INC ELEC STIMJ UNATTENDE D APPL 71090 M[facility] MODALITY 5 [facility] 1/> AREAS INC INC ELEC STIMJ UNATTENDE D APPLICATI 15331 [facility] ON 5 [facility] MODALITY INC INC 1/> AREAS HOT/COLD PACKS APPL 06804 [facility] MODALITY 5 [facility] 1/> AREAS INC INC ULTRASOUN D EA 15 MIN LOCM Q9967 [facility] 300-399 5 [facility] MG/ML INC [place] [address] [facility] ABDOMEN & 5 [facility] PELVIS INC INC W/CONTRAS T MATERIAL COLLECTIO 79557 [facility] N VENOUS 5 [facility] [place] [address] [facility] UREA 5 [facility] NITROGEN INC INC QUANTITAT ANUPAMA CREATININ 07181 [facility] E BLOOD 5 [facility] INC INC APPL 81609 [facility] MODALITY 5 [facility] 1/> AREAS INC INC ULTRASOUN D EA 15 MIN APPLICATI 83101 [facility] ON 5 [facility] MODALITY INC INC 1/> AREAS HOT/COLD PACKS APPL 12668 M[facility] MODALITY 5 [facility] 1/> AREAS INC INC ELEC STIMJ UNATTENDE D APPL 19957 [facility] MODALITY 5 [facility] 1/> AREAS INC INC ELEC STIMJ UNATTENDE D APPLICATI 08910 [facility] ON 5 [facility] MODALITY INC INC 1/> AREAS HOT/COLD PACKS APPL 79969 M[facility] MODALITY 5 [facility] 1/> AREAS INC INC ULTRASOUN D EA 15 MIN PHYSICAL 19664 [facility] THERAPY 5 [facility] EVALUATIO INC INC N SCREENING G0202 [facility] EUGENIO 5 MEDICAL LA MAMMOGRAP IMAGING HY NIESHA ASS INCL CAD WHEN PERFORMD COMPUTER- 37387 [facility] AIDED 5 MEDICAL AL DETECTION IMAGING ASS SCREENING MAMMOGRAP HY RADEX 77418 [facility] SPINE 5 [facility] LUMBOSACR INC INC AL MINIMUM 4 VIEWS TYMPANOME 21708 JAI ARRIAGA TRY 4 TU RAIMUNDO COMPRE 24036 JAI ARRIAGA AUDIOMETR 4 TU RAIMUNDO Y THRESHOLD EVAL SP RECOGNIJ DISTORT 12757 VERGARA CORINA PRODUCT 4 TU RAIMUNDO EVOKED OTOACOUST IC EMISNS LIMITD DEBRIDEME 97954 JAI VERGARA NT 4 MASTOIDEC LILI CAVITY SIMPLE PORTABLE K0738 GOULDS GOULDS GASEOUS 4 DISCOUNT DISCOUNT O2 SYS MEDICAL MEDICAL RENTAL; HOME COMPRESSO R O2 CONC 1 E1390 GOULDS GOULDS DEL PORT 4 DISCOUNT DISCOUNT 85%/>02 MEDICAL MEDICAL CONC AT [facility] FLW RATE O2 CONC 1 E1390 GOULDS GOULDS DEL PORT 4 DISCOUNT DISCOUNT 85%/>02 MEDICAL MEDICAL CONC AT [facility] FLW RATE PORTABLE K0738 GOULDS GOULDS GASEOUS 4 DISCOUNT DISCOUNT O2 SYS MEDICAL MEDICAL RENTAL; HOME COMPRESSO R ECG 20010 [facility] ROUTINE 4 HEART SOLEDAD ECG SPECIALIS W/LEAST TS, 12 LDS I&R ONLY MONITOR 67751 [facility] Espinosa ID& 4 LATERALIZ ATION SEIZURE FOCUS EEG ELECTROEN 23314 WYATT Espinosa CEPHALOGR 4 AM W/REC AWAKE&ASL EEP DECALCIFI 70761 CHIPPS VINCENT CATION 4 [facility] THOMAS PROCEDURE DUBILIER LEVEL III 11292 CHIPPS VINCENT SURG 4 [facility]IRLEY & THOMAS PATHOLOGY [place] GROSS&HENRRY ROSCOPIC EXAM ANESTHESI 59782 KARLY BRANDT A MAJOR 4 ANAHI ANAHI VESSELS NECK NOS ARTL 54269 SAUMYAKAYLI BRANDT CATHJ/CAN 4 ANAHI ANAHI NULJ MNTR/WEBER SFUSION SPX PRQ TEAEC 77798 EPISCOPAL MOOSE W/PATCH 4 CARDIOTHO ROHAN GRF RACIC CAROTID SURGI VERTB SUBCLAV NECK INC SBSQ 59918 [facility] 4 YUR YUR CARE/DAY 35 MINUTES RADIOLOGI 26426 [facility] 4 SHANNON SHANNON CHEST 2 VIEWS FRONTAL&L ATERAL ECG 14915 [place] ARMENDARIZ ROUTINE 4 HEART SOLEDAD ECG SPECIALIS W/LEAST TS, 12 LDS [place] [address] OLIVER ADA OLIVER ADA ANGIOGRAP 4 HY NECK W/CONTRAS T/[place] [address]343 ARMENDARIZ ARMENDARIZ TRLUML [address] [facility] CORONARY STENT W/ANGIO ONE ART/BRNCH CATH PLMT 79594 ARMENDARIZ ARMENDARIZ L HRT & 4 [facility] ARTS W/NJX & ANGIO IMG S&I ARTHROCEN 98818 [place] [facility] TESIS 4 MEDICAL N CHR ASPIR&/IN SERV J INTERM FOUNDATIO JT/BURS N W/O US DUPLEX 53961 MOOSE VIRK SCAN 4 ROHAN ROHAN EXTRACRAN IAL ART COMPL BI STUDY RADIOLOGI 72390 CHARIS CHARIS C EXAM 4 ANAHI ANAHI KNEE COMPLETE 4/MORE VIEWS INJECTION J3301 [place] [facility] 4 MEDICAL N CHR TRIAMCINO SERV LONE FOUNDATIO ACETONIDE N NOS 10 MG ARTHROCEN 98885 [place] [facility] TESIS 4 MEDICAL N CHR ASPIR&/IN SERV J MAJOR FOUNDATIO JT/BURSA N W/O US RADEX 16759 [facility] UNIVERSIT ANKLE 4 Y Y COMPLETE HOSPITAL HOSPITAL MINIMUM 3 VIEWS DRUG SCR G0434 ADRIEL HAM ADRIEL HAM NOT 4 CHROMATOG RAPHIC; ANY NUMBER PT ENC LIPID 19542 [facility] PANEL 3 [facility] INC INC SCREENING G0202 EUGENIO EUGENIO 3 LA LA MAMMOGRAP HY NIESHA INCL CAD WHEN PERFORMD COMPUTER- 29975 EUGENIO EUGENIO AIDED 3 LA LA DETECTION SCREENING MAMMOGRAP HY COMPREHEN 25338 [facility] SIVE 3 [facility] METABOLIC INC INC PANEL BLOOD 51098 ELIZABETH ELIZABETH OCCULT 3 AUDRA AUDRA PEROXIDAS E ACTV QUAL FECES 1 DETER URNLS DIP 85480 ELIZABETH ELIZABETH 3 AUDRA AUDRA STICK/TAB LET RGNT NON-AUTO W/O MICRSCP CYTP C/V 49429 PICKLESIM PICKLESIM AUTO THIN 3 ER JR DARIUSZ ER JR DARIUSZ LYR PREPJ SCR MNL RESCR PHYS DUPLEX 33706 [facility] EUGENIO SCAN 3 LA LA EXTRACRAN IAL ART COMPL BI STUDY MYOCARDIA 82648 EU[facility] EUGENIO L SPECT 3 LA LA SINGLE STUDY AT REST OR STRESS CV STRS 58846 [facility] TST 3 PHYSICIAN PHYSICIAN XERS&/OR S GROUP S GROUP RX CONT ECG W/O I&R RADIOLOGI 31940 EUGENIO EUGENIO C 3 AL LA EXAMINATI ON CHEST SINGLE VIEW FRONTAL ANES 75741 [facility] LOWER 3 ANESTH INTESTINE OF THE BLUE ENDOSCOPY DISTAL DUODENUM COLONOSCO 11646 [facility] PY FLX DX 3 [facility] W/COLLJ INC INC SPEC WHEN PFRMD HOSPITAL 87289 [facility] BESSON DISCHARGE 3 ANN ANN DAY MANAGEMEN T 30 MIN/< SBSQ 26966 [facility] 3 JR SOLEDAD WALDRON SOLEDAD CARE/DAY 25 MINUTES INITIAL 22248 [facility] SCHULSTAD INPATIENT 3 LUDWIN LUDWIN CONSULT NEW/ESTAB PT 40 MIN SBSQ 80147 [facility] 3 JR SOLEDAD ROWE CARE/DAY 25 MINUTES SBSQ 70970 [facility] 3 JR SOLEDAD ROWE CARE/DAY 25 MINUTES INITIAL 29271 [facility] 3 JR SOLED[facility] ROWE CARE/[place] [address] [place] [address] EUGENIO EUGENIO ABDOMEN & 3 LA LA PELVIS W/CONTRAS T MATERIAL LUMB L0627 [facility]NIS DENNIS ORTHOSIS 2 HOME HOME [facility] MEDICAL MEDICAL CNTRL EQUIPME EQUIPME RIGID A&P PANEL PREFAB RADIOLOGI 71388 [facility] C EXAM 2 MEDICAL LA CHEST 2 IMAGING VIEWS ASS FRONTAL&L ATERAL RADEX 46577 [facility] SPINE 2 MEDICAL LA LUMBOSACR IMAGING AL ASS MINIMUM 4 VIEWS RADIOLOGI 67519 [facility] C 2 [facility] EXAMINATI INC INC ON KNEE 3 VIEWS URNLS DIP 23314 [facility] 2 JR SOLEDAD ROWE STICK/TAB LET RGNT NON-AUTO W/O MICRSCP RADEX 62638 [facility] UPPER GI 2 [facility] W/WO INC INC GLUCAGON/ DELAY IMAGES W/[place] [address] [facility] ABDOMINAL 2 MEDICAL LA REAL IMAGING TIME ASS W/[place] [address] [facility] TRACT 2 MEDICAL LA UPPER IMAGING W/WO ASS DELAYED IMAGES W/O KUB DUPLEX 84005 [facility] SCAN 2 [facility] EXTRACRAN INC INC IAL ART COMPL BI STUDY COMPUTER- 63334 [facility] AIDED 2 [facility] DETECTION INC INC SCREENING MAMMOGRAP HY SCREENING G0202 [facility] 2 [facility] MAMMOGRAP INC INC HY NIESHA INCL CAD WHEN PERFORMD BLOOD 81554 [facility] COUNT 2 [facility] COMPLETE INC INC AUTO&AUTO DIFRNTL WBC LIPID 24757 [facility] PANEL 2 [facility] INC INC COMPREHEN 29142 M[facility] SIVE 2 [facility] METABOLIC INC INC PANEL PHYSICAL 02388 [facility] THERAPY [facility] EVALUATIO INC INC N DUPLEX 70008 EPISCOPAL IMAM MOH SCAN 1 CARDIOTHO EXTRACRAN RACIC IAL ART SURGI COMPL BI STUDY COLSC FLX 96637 [facility] W/REMOVAL [place] [address] [facility] INFUSION 1 [facility] THERAPY INC [place] [address] [facility] SURG 1 SHIRLEY & ALEXUS PATHOLOGY DUBILIER GROSS&HENRRY ROSCOPIC EXAM ENDOSCOPI 4542 [facility] C [facility] POLYPECTO INC INC MY OF LARGE INTESTINE SCREENING G0202 [facility] 1 [facility] LA MAMMOGRAP IMAGING HY NIESHA ASS INCL CAD WHEN PERFORMD COMPUTER- 83316 [facility] AIDED 1 [facility] LA DETECTION IMAGING ASS SCREENING MAMMOGRAP HY BASIC 03924 [facility] METABOLIC 0 [facility] PANEL INC INC CALCIUM TOTAL BLOOD 87811 [facility] COUNT [facility] COMPLETE INC INC AUTO&AUTO DIFRNTL WBC ANESTHESI 34178 [facility] CHR A MAJOR 0 [place] VESSELS ANESTHESI NECK NOS A EEG 37351 FARZANA CARD JOSS NONINTRAC 0 STEPHIE CABRERA RANIAL PSC SURGERY ARTL 73977 [facility] BROSTER CATHJ/CAN 0 [place] THO NULJ ANESTHESI MNTR/WEBER A SFUSION SPX PRQ TEAEC 67660 EPISCOPAL IMAM MOH W/PATCH 0 CARDIOTHO GRF RACIC CAROTID SURGI VERTB SUBCLAV NECK INC DECALCIFI 19235 [facility] VINCENT CATION 0 SHIRLEY & THOMAS PROCEDURE DUBILIER LEVEL III 44618 [facility] SURG 0 SHIRLEY & THOMAS PATHOLOGY DUBILIER GROSS&HENRRY ROSCOPIC EXAM ECG 33677 [place] [facility] AZH ROUTINE 0 ECG CARDIOLOG W/LEAST Y CONSULT 12 LDS I&R ONLY SLCTV 83456 [facility] ADA CATHJ 1ST 0 RADIOLOGY 2ND ORD ASSOC THRC/BRCH /CPHLC BRNCH ANGIOGRAP 02697 [facility] HY 0 RADIOLOGY CAROTID ASSOC CERVICAL BILATERAL RS&I ANGIOGRAP 68229 [facility] HY 0 RADIOLOGY CAROTID ASSOC CEREBRAL BILATERAL RS&I SLCTV 44830 [facility] CATHJ EA 0 RADIOLOGY 1ST ORD ASSOC THRC/BRCH /CPHLC BRNCH ARTERIOGR 8841 [facility] APHY OF 0 EPISCOPAL EPISCOPAL [facility]OS[facility] HOSP ARTERIES COLLECTIO 96034 [facility] N VENOUS 0 EPISCOPAL EPISCOPAL BLOOD HOSP HOSP VENIPUNCT URE CREATININ 95096 [facility] E BLOOD 0 EPISCOPALLAUREL [facility] PROTHROMB 98998 [facility] IN TIME 0 [facility] 258[facility] DISCHARGE 0 [place] INTERNAL MANAGEMEN MED T 30 MIN/< SBSQ 84028 [facility] 0 [facility] CARE/DAY INTERNAL 25 MED MINUTES INITIAL 68886 [facility] 0 [facility]/DAY INTERNAL 50 MED MINUTES RADIOLOGI 01176 [facility] EXAM 0 [facility] CHEST 2 IMAGING VIEWS ASS FRONTAL&L ATERAL RADIOLOGI 60746 [facility] EXAM 0 MEDICAL MARK CHEST 2 IMAGING VIEWS ASS FRONTAL&L ATERAL MRI ANY 14428 TAO Caal EUGENIO JT LOWER 0 EUGENIO LA EXTREM W/O CONTRAST MATRL DUPLEX 66669 [facility] SCAN [facility] EXTRACRAN INC [place] [address] [facility] THYROID 0 [facility] STIMULATI INC INC NG HORMONE TSH COMPREHEN 40182 [facility] SIVE 0 [facility] METABOLIC INC INC PANEL CREATINE 27828 [facility] KINASE 0 [facility] TOTAL INC INC BLOOD 25177 [facility] COUNT 0 [facility] COMPLETE INC INC AUTO&AUTO DIFRNTL WBC LIPID 02157 [facility] PANEL 0 [facility] INC INC FLUORESCE 01138 [facility] NT [facility] NONNFCT INC INC AGT ANTB TITER EA ANTIBODY COMPUTER- 28290 [facility] AIDED 0 [facility] DETECTION INC INC SCREENING MAMMOGRAP HY SCREENING 37989 [facility] [place] [address] [facility] W[facility] UREA 0 [facility] NITROGEN INC INC QUANTITAT ANUPAMA CT [address] [facility] AN[facility]IOGRAP 0 [facility] HY NECK INC INC W/CONTRAS T/NONCONT RAST CREATININ 70641 [facility] E BLOOD 0 [facility] INC INC IMMUNODIF 30925 [facility] FUSION 0 [facility] GEL INC INC DIFFUSION QUAL EA AG/ANTBDY C-REACTIV 63837 [facility] E PROTEIN 0 [facility] HIGH INC INC SENSITIVI TY COMPLEMEN 97184 [facility] T 0 [facility] FIXATION INC INC TESTS EACH ANTIGEN ALLERGEN 33732 [facility] SPECIFIC 0 [facility] IGG INC INC NORMA/SEMI NORMA EA ALLERGEN ANTIBODY 52249 [facility] IDENTIFIC 0 [facility] ATION INC INC LEUKOCYTE ANTIBODIE S DUPLEX 69008 [facility] SCAN 0 [facility] EXTRACRAN INC INC IAL ART COMPL BI STUDY ALPHA-1-A 92905 [facility] NTITRYPSI 0 [facility] N TOTAL INC INC ANTIBODY 53302 [facility] ASPERGILL 0 [facility] US INC INC ALPHA-1-A 76580 [facility] NTITRYPSI 0 [facility] N INC INC PHENOTYPE ANTINUCLE 92109 [facility] AR 0 [facility] ANTIBODIE [place] [address] [facility] THYROID 0 [facility] STIMULATI [place] [address] [facility] GAMMAGLOB 0 [facility] ULIN IGE INC INC CYTP 55274 PATHOLOGY PATHOLOGY SLCTV 9 & & CELL CYTOLOGY CYTOLOGY ENHANCEME LAB LAB NT INTERP[place]CP[place] C/[place] L[place] [address] PATHOLOGY PATHOLOGY SURG 9 & & PATHOLOGY CYTOLOGY CYTOLOGY LAB LAB GROSS&HENRRY ROSCOPIC EXAM CULTURE 03619 [facility] FNGI 9 [facility] MOLD/YEAS INC INC T PRSMPTV OTH XCPT BLOOD BRNCHSC 37126 [facility] W/BRNCL 9 [facility] ALVEOLAR INC INC LAVAGE CULTURE 01525 [facility] TUBERCLE/ 9 [facility] OTH INC INC ACID-FAST BACILLI ANY ISOL CUL BACT 49451 [facility] XCPT 9 [facility] URINE INC INC BLOOD/[place] [address] [facility] INFUSION 9 [facility] THERAPY INC INC PROPHYLAX IS/DX EA HOUR SMR PRIM 80744 [facility] SRC 9 [facility] GRAM/GIEM INC INC [place] ST[place] B[place] FUN[place] [address] [facility] INFUSION 9 [facility] THERAPY/P INC INC ROPHYLAXI S /DX 1ST TO 1 HR [facility] 15361 EPISCOPAL FLOWERS INCL 9 CARDIOTHO SOLEDAD FLUOR RACIC GDNCE DX SURGI W/CELL WASHG SPX CLOSED 3324 [facility] BIOPSY OF 9 [facility] BRONCHUS INC INC BRNCDILAT 33605 [facility] RSPSE 9 [facility] SPMTRY INC INC PRE&POST- BRNCDILAT ADMN DETER 27791 [facility] AIRWY 9 [facility] CLOSING INC INC VOL 1 BRTH TSTS DETER 02792 [facility] CHRISTIANSON MALDISTRI 9 [facility] INSPIRED PROF SERV GAS N WSHOT CURVE FUNCTIONA 52115 [facility] L 9 [facility] RESIDUAL INC INC CAPACITY OR RESIDUAL VOLUME CREATININ 58476 [facility] E BLOOD 9 [facility] INC INC 3D 04058 ASAF ALEXANDRA 9 MEDICAL TAO IMAGING W/INTERP& ASSOCIATE POSTPROC S DIFF WORK STATION CT THORAX 87520 GEM BECKER 9 MEDICAL TAO W/CONTRAS [place] [address] [facility] UREA 9 [facility] NITROGEN INC INC QUANTITAT ANUPAMA COMPREHEN 61807 [facility] SIVE 9 [facility] METABOLIC INC INC PANEL LIPID 91722 [facility] PANEL 9 [facility] INC INC CREATINE 33684 [facility] KINASE 9 [facility] TOTAL INC INC RADIOLOGI 98440 [facility] Caal 9 [facility] EXAMINATI INC INC ON KNEE 1/2 VIEWS RADIOLOGI 57372 [facility] C 9 [facility] EXAMINATI INC INC ON KNEE 3 VIEWS RADIOLOGI 27605 Ten ALEXADNRA EXAM 9 MEDICAL TAO BOTH IMAGING KNEES ASSOCIATE STANDING S ANTEROPOS T RADIOLOGI 48661 [facility] BY[facility] EXAM 9 MEDICAL TA[facility] KNEE IMAGING COMPLETE ASSOCIATE 4/MORE S VIEWS RADEX 10350 [facility] BECKER ANKLE 9 MEDICAL TAO COMPLETE IMAGING MINIMUM 3 ASSOCIATE VIEWS S RADIOLOGI 99767 [facility] BYRNE EXAM 9 MEDICAL TAO CHEST 2 IMAGING VIEWS ASSOCIATE FRONTAL&L S ATERAL RADIOLOGI 25882 [facility] CRUZ EXAM 9 MEDICAL HARMAN P CHEST 2 IMAGING VIEWS ASSOCIATE FRONTAL&L S ATERAL IAADI 76832 [facility] INFLUENZA 9 [facility] B VIRUS INC INC IAADI 58276 [facility] INFFLUENZ 9 [facility] A A VIRUS INC INC COMPUTER- 09287 [facility] AIDED 9 [facility] DETECTION INC INC SCREENING MAMMOGRAP HY SCREENING 00628 [facility] 9 [facility] MAMMOGRAP INC INC HY BILATERAL 3D 40374 GEM LORE, RENDERING 8 MEDICAL HARMAN P IMAGING W/INTERP& ASSOCIATE POSTPROC S DIFF WORK STATION CT PELVIS 16028 [facility] 8 [facility] W/[place] [address] [facility] ABDOMEN 8 [facility] W/CONTRAS INC INC T MATERIAL CREATININ 77745 [facility] E BLOOD 8 [place] [address] [facility] UREA 8 [facility] NITROGEN INC INC QUANTITAT ANUPAMA GASTRIC 16750 [facility] EUGENIO, EMPTYING 8 MEDICAL TAO IMAGING IMAGING STUDY ASSOCIATE S COMPREHEN 16359 [facility] SIVE 8 [facility] [place] [address] [facility] AMYLASE 8 [place] [address] [facility] LIPASE 8 [facility] INC INC RADEX ABD 36377 [facility] EUGENIO, COMPL 8 MEDICAL TAO AQT ABD IMAGING W/S/E/D ASSOCIATE VIEWS 1 S VIEW CH BLOOD 59865 [facility] COUNT 8 [facility] COMPLETE INC INC AUTO&AUTO DIFRNTL WBC LUMB L0627 [facility] 8 [facility] SAGIT PROSTH PROSTH CNTRL INC INC RIGID A&P PANEL PREFAB WRIST L3908 [facility] HAND 8 BRACE BRACE ORTHOSIS PROSTH PROSTH EXT INC INC CONTROL COCK-UP PREFAB CUL 47030 [facility] PRSMPTV 8 [facility] PTHGNC INC INC ORGANISMS SCR DNS CHART SPCL STN 55666 PATHOLOGY PATHOLOGY 2 I&R 8 & & EXCPT CYTOLOGY CYTOLOGY MICROORG/ LAB LAB ENZYME/IM CYT SPECIAL 95043 PATHOLOGY PATHOLOGY STAIN 8 & & GROUP 1 CYTOLOGY CYTOLOGY MICROORGA LAB LAB [facility] [place] I&[place] [address] PATHOLOGY PATHOLOGY SURG 8 & & PATHOLOGY CYTOLOGY CYTOLOGY LAB LAB GROSS&[place] [address] [facility] THER 8 [facility] PROPH/DX INC INC 1ST >1 HR EGD 33839 [facility] TRANSORAL 8 [facility] BIOPSY INC INC SINGLE/MU LTIPLE ESOPHAGOG 4516 [facility] ASTRODUOD 8 [facility] ENOSCOPY INC INC WITH CLOSED BIOPSY US SOFT 85113 [place] KELLY TORREZ 8 MEDICAL HARMAN P HEAD & IMAGING NECK REAL ASSOCIATE TIME S IMGE DOCM APPL 26589 [facility] MODALITY 8 [facility] 1/> AREAS INC INC VASOPNEUM ATIC DEVICES APPL 24684 [facility] MODALITY 8 [facility] 1/> AREAS INC [place] [address] [facility] 1/> AREAS 8 [facility] EACH 15 INC INC MIN NEUROMUSC REEDUCA PHYSICAL 87650 [facility] THERAPY 8 [facility] EVALUATIO INC INC N THERAPEUT 14704 [facility] IC PX 1/> 8 [facility] AREAS INC INC EACH 15 MIN EXERCISES CYTP 59260 AMERIPATH MONY, CERV/VAG 8 [place] INC FRANCISCO JAVIER E AUTO TH[place] [address] [facility] THYROID 8 [facility] STIMULATI INC INC NG HORMONE TSH COMPREHEN 89355 [facility] W[facility] SIVE 8 [facility] METABOLIC INC INC PANEL LIPID 67659 [facility] PANEL 8 [facility] INC INC BLOOD 46308 [facility] COUNT 8 [facility] COMPLETE INC INC AUTO&AUTO DIFRNTL WBC Encounters Encounter Start End Date Code Location Performer Type Date OFFICE 86371 MIMI SALGADO OUTPATIEN 7 7 [place] T VISIT ORTHOPAED 15 IC MINUTES OFFICE 73798 [facility] HALI OUTPATIEN 7 7 [place] T VISIT INTERNAL 15 MED MINUTES OFFICE 21497 ANITA VERNA OUTPATIEN 7 7 BUX, MD, T VISIT PSC 15 MINUTES [facility] OUTPATIEN INC T OFFICE 72389 [facility] OUTPATIEN 7 7 [facility] T VISIT INC 10 MINUTES [facility] 7 7 [facility] OUTPATIEN INC T [facility] 7 7 [facility] OUTPATIEN INC T OFFICE 91148 [facility] OUTPATIEN 7 7 [facility] T VISIT INC 10 MINUTES [facility] 7 7 [facility] OUTPATIEN INC T [facility] 7 7 [facility] OUTPATIEN INC T [facility] 7 7 [facility] OUTPATIEN INC T OFFICE 21282 [facility] OUTPATIEN 7 7 [facility] T VISIT 5 INC MINUTES OFFICE 46045 ANITA GILLESPIE OUTPATIEN 7 7 MD ROSA, T VISIT PSC 15 MINUTES [facility] 7 7 [facility] OUTPATIEN INC T [facility] 7 7 [facility] OUTPATIEN INC T [facility] 7 7 [facility] OUTPATIEN INC T [facility] 7 7 [facility] OUTPATIEN INC T [facility] - 6 6 [facility] OUTPATIEN INC T EMERGENCY 65723 [facility] DEPT 6 6 [facility] VISIT INC HIGH SEVERITY& THREAT FUNJ OFFICE 09194 [facility] MANDUJANO MIS OUTPATIEN 6 6 [facility] T VISIT INTERNAL 25 MED MINUTES OFFICE 42725 [facility] MARUSON OUTPATIEN 6 6 [facility] T VISIT INTERNAL 15 MED MINUTES EMERGENCY 30373 [facility] 6 6 [facility] DEPARTMEN INC T VISIT LOW/MODER SEVERITY EMERGENCY 86366 DULCE MALDONADO 6 6 PHYSICIAN HENRRY DEPARTMEN S, [facility] T VISIT HIGH/URGE NT SEVERITY [facility]OSPITAL [facility] - 6 6 [facility] OUTPATIEN INC T OFFICE 87173 [facility] VERGARA OUTPATIEN 6 6 PHYSICIAN TU T VISIT S GROUP 15 MINUTES OFFICE 40448 [facility] BESSON OUTPATIEN 6 6 [facility] ANN T VISIT INTERNAL 25 MED MINUTES OFFICE 46694 [facility] OUTPATIEN 6 6 N T VISIT NEUROLOGY 10 MINUTES OFFICE 35335 [facility] CALLY CONSULTAT 6 6 N ION NEUROLOGY NEW/ESTAB PATIENT 60 MIN HOSPITAL [facility] - 6 6 EPISCOPAL OUTPATIEN HOSP T OFFICE 38397 [facility] BESSON OUTPATIEN 5 5 [place] T VISIT INTERNAL 25 MED MINUTES EMERGENCY 98510 [facility] DEPT 5 5 EMERGENCY GREG VISIT PHYS PSC HIGH SEVERITY& THREAT FUNCJ EMERGENCY 04154 [facility] 5 5 [facility] DEPARTMEN INC T VISIT LOW/MODER SEVERITY [facility] - 5 5 [facility] OUTPATIEN [facility] T EMERGENCY 39197 DULCE MALDONADO DEPT 5 5 PHYSICIAN HENRRY VISIT S, PLLC HIGH SEVERITY& THREAT FUNCJ OFFICE 03032 [facility] BESSON OUTPATIEN 5 5 [place] T VISIT INTERNAL 15 MED MINUTES [facility] - 5 5 [facility] INPATIENT INC EMERGENCY 39801 DULCE MALDONADO DEPT 5 5 PHYSICIAN HENRRY VISIT S, PLLC HIGH SEVERITY& THREAT FUNCJ OFFICE 31382 [facility] B[facility]ON OUTPATIEN 5 5 [facility] T VISIT INTERNAL 15 MED MINUTES EMERGENCY 34973 DULCE MALDONADO 5 5 PHYSICIAN HENRRY DEPARTMEN S, PLLC T VISIT HIGH/URGE NT SEVERITY [facility] - 5 5 [facility] OUTPATIEN INC T OFFICE 31393 [facility] BESSON OUTPATIEN 5 5 [place] T VISIT INTERNAL 15 MED MINUTES EMERGENCY 25765 DULCE AVELAR DEPT 5 5 PHYSICIAN LUEVANO VISIT S, PLLC HIGH SEVERITY& THREAT FUNCJ OFFICE 59642 SHAMIKA LEE BUX ANJ OUTPATIEN 5 5 MD T NEW 30 MINUTES HOSPITAL [facility] 5 5 HOSPITAL OUTPATIEN T OFFICE 45580 [facility] CONSULT[facility] 5 5 [facility] MEDICAL NEW/ESTAB G PATIENT 60 MIN OFFICE 44339 [facility] CHOLO TOD OUTPATIEN 5 5 PHYSICIAN T VISIT S GROUP 15 MINUTES HOSPITAL [facility] - 5 5 [facility] OUTPATIEN INC T OFFICE 71741 [facility] TRA OUTPATIEN 5 5 [place] T VISIT ORTHOPAED 15 [facility] MINUTES [facility]OSP[facility] - 5 5 [facility] OUTPATIEN [facility]ICE 84737 [facility] 5 5 PHYSICIAN ION S GROUP NEW/ESTAB PATIENT 60 MIN OFFICE 45368 [facility] BESSON OUTPATIEN 5 5 [facility] ANN T VISIT INTERNAL 15 MED MINUTES OFFICE 87977 [facility] LO[facility] TRA OUTPATIEN 5 5 [place] T VISIT ORTHOPAED 15 [facility] MINUTES [facility] 5 5 [facility] OUTPATIEN INC [facility] - 5 5 [facility]PATIEN [facility] - 5 5 [facility] OUTPATIEN INC T OFFICE 28220 [facility] CAMERON OUTPATIEN 5 5 [facility] ARI[facility] T NEW 20 HOSPITAL MINUTES P [facility] - 5 5 [facility] OUTPATIEN INC T OFFICE 61177 [facility] CONSULTAT 5 5 [place] ION ORTHOPAED NEW/ESTAB [facility] PATIENT 60 MIN OFFICE 31212 [facility] BESSON OUTPATIEN 5 5 [facility] ANN T VISIT INTERNAL 25 MED MINUTES [facility] - 5 5 [facility] OUTPATIEN INC T OFFICE 65203 JAI VERGARA OUTPATIEN 4 4 T NEW 30 MINUTES OFFICE 06290 [facility] BESSON OUTPATIEN 4 4 [facility] ANN T VISIT INTERNAL 25 MED MINUTES OFFICE 81578 DIEGO WEBB OUTPATIEN 4 4 MEDICAL N CHR T VISIT SERV 15 FOUNDATIO MINUTES N OFFICE 76240 MOOSE VIRK OUTPATIEN 4 4 ROHAN ROHAN T VISIT 25 MINUTES OFFICE 53829 UNIV[facility] OUTPATIEN 4 4 Y T VISIT 5 [facility] T OFFICE 68424 JUST[facility] RENDON CONSULTAT 4 4 ANN ANN ION NEW/ESTAB PATIENT 40 MIN OFFICE 41865 PETTEY PETTEY OUTPATIEN 4 4 JAM JAM T NEW 30 MINUTES OFFICE 57771 ADRIEL HAM ADRIEL HAM OUTPATIEN 4 4 T NEW 45 MINUTES OFFICE 82379 BESSON BESSON OUTPATIEN 4 4 ANN ANN T VISIT 15 MINUTES OFFICE 87430 ELIZABETH JOHNSON OUTPATIEN 4 4 AUDRA AUDRA T VISIT 15 MINUTES [facility]OSPITAL [facility] - 3 3 [facility] OUTPATIEN INC T PERIODIC 04830 ELIZABETH ELIZABETH PREVENTIV 3 3 AUDRA AUDRA E MED EST PATIENT 40-64YRS OFFICE 26834 ADIS ADIS OUTPATIEN 3 3 JR LA LA T VISIT 15 MINUTES [facility]OSPITAL [facility] - 3 3 [facility] OUTPATIEN INC T OFFICE 10304 MCKEMIE MCKEMIE OUTPATIEN 3 3 SOLEDAD SOLEDAD T VISIT 15 MINUTES OFFICE 30477 MCKEMIE MCKEMIE OUTPATIEN 3 3 JR SOLEDAD WALDRON SOLEDAD T VISIT 15 MINUTES Inpatient NORA Lal MD (IN) 3 12:54 3 08:20 [facility] EMERGENCY 09007 O'RACHELLE O'RACHELLE DEPT 3 3 CLAIRE CLAIRE VISIT HIGH SEVERITY& THREAT FUNCJ OFFICE 61507 MCKEMIE MCKEMIE OUTPATIEN 3 3 JR SOLEDAD WALDRON SOLEDAD T VISIT 15 MINUTES Emergency NIKKO Maldonado MD (ER) 3 18:31 3 20:05 [facility] EMERGENCY 56828 [facility] 3 3 [facility] DEPARTMEN INC T VISIT LOW/MODER SEVERITY [facility] - 3 3 [facility] OUTPATIEN INC T EMERGENCY 96626 DENISSE MALDONADO 3 3 HENRRY HENRRY DEPARTMEN T VISIT MODERATE SEVERITY [facility] - 3 3 [facility] OUTPATIEN INC T EMERGENCY 08965 SUSHIL EUBANKS DEPT 3 3 EMERGENCY VISIT SERVICES HIGH SEVERITY& THREAT FUNCJ OFFICE 00481 MCKEMIE MCKEMIE OUTPATIEN 2 2 JR SOLEDAD WALDRON SOLEDAD T VISIT 15 MINUTES EMERGENCY 77834 SUSHIL EUBANKS 2 2 EMERGENCY DEPARTMEN SERVICES T VISIT HIGH/URGE NT SEVERITY [facility] 2 2 [facility] OUTPATIEN INC T OFFICE 67716 MCKEMIE MCKEMIE OUTPATIEN 2 2 JR SOLEDAD WALDRON SOLEDAD T VISIT 15 MINUTES OFFICE 24757 MCKEMIE MCKEMIE OUTPATIEN 2 2 JR SOLEDAD ROWE T VISIT 10 MINUTES [facility] - 2 2 [facility] OUTPATIEN INC T OFFICE 53139 WHANG VALERIA WHANG VALERIA OUTPATIEN 2 2 T VISIT 10 MINUTES [facility] - 2 2 [facility] OUTPATIEN INC T [facility] - 2 2 [facility] OUTPATIEN INC T OFFICE 58905 MCKEMIE MCKEMIE OUTPATIEN 2 2 JR SOLEDAD ROWE T VISIT 15 MINUTES [facility]OSPITAL [facility] - 2 2 [facility] OUTPATIEN INC T OFFICE 60351 MCKEMIE MCKEMIE OUTPATIEN 2 2 JR SOLEDAD ROWE T VISIT 15 MINUTES OFFICE 48312 MCKEMIE MCKEMIE OUTPATIEN 2 2 JR SOLEDAD ROWE T VISIT 15 MINUTES [facility] - 1 1 [facility] OUTPATIEN INC T OFFICE 12947 [facility] MCKEMIE OUTPATIEN 1 1 YAHAIRA ROWE T VISIT INTERNAL 15 MED MINUTES OFFICE 43771 C TYLER ALANIS OUTPATIEN 1 1 ANNABELLE Espinosa VISIT [facility] 10 MINUTES OFFICE 30566 EPISCOPAL IMAM MOH OUTPATIEN 1 1 CARDIOTHO T VISIT RACIC 10 SURGI MINUTES [facility]OSPITAL [facility] - 1 1 [facility] OUTPATIEN INC T OFFICE 39077 C TYLER ALANIS CONSULTAT 1 1 ANNABELLE MORSE MD [facility] NEW/ESTAB PATIENT 60 MIN OFFICE 15849 [facility] MCKEMIE OUTPATIEN 1 1 YAHAIRA ROWE T VISIT INTERNAL 15 MED MINUTES [facility] - 1 1 [facility] OUTPATIEN INC T OFFICE 55079 [facility] BESSON OUTPATIEN 0 0 [facility] T VISIT INTERNAL 15 MED MINUTES EMERGENCY 92407 [facility] 0 0 [facility] DEPARTMEN INC T VISIT MODERATE SEVERITY [facility] - 0 0 [facility] OUTPATIEN [facility] T EMERGENCY 79886 SUSHIL MALDONADO DEPT 0 0 EMERGENCY HENRRY VISIT SERVICES HIGH SEVERITY& THREAT FUNCJ OFFICE 88585 EPISCOPAL IMAM MOH OUTPATIEN 0 0 CARDIOTHO T VISIT RACIC 10 SURGI MINUTES HOSPITAL [facility] - 0 0 EPISCOPAL OUTPATIEN HOSP T OFFICE 69807 EPISCOPAL IMAM MOH OUTPATIEN 0 0 CARDIOTHO T VISIT RACIC 10 SURGI MINUTES EMERGENCY 13337 SUSHIL LEAL 0 0 [facility]ENCY [facility] T VISIT HIGH/URGE NT SEVERITY OFFICE 69047 [facility] PETTEY CONSULTAT 0 0 PHYSICIAN KERWIN Fernandez GROUP NEW/ESTAB PATIENT 60 MIN OFFICE 02899 [facility] BESSON OUTPATIEN 0 0 [facility] T VISIT INTERNAL 15 MED MINUTES [facility] 0 0 [facility]PAT[facility]EN [facility] - 0 0 [facility] OUTPATIEN [facility] T OFFICE 07989 [facility] BESSON OUTPATIEN 0 0 [facility] T VISIT INTERNAL 25 MED MINUTES [facility] 0 0 [facility]EN [facility] - 0 0 [facility] OUTPATIEN [facility] T OFFICE 86021 EPISCOPAL FLOWERS OUTPATIEN 0 0 CARDIOTHO SOLEDAD T VISIT RACIC 10 SURGI MINUTES OFFICE 65809 [facility] MCKEMIE OUTPATIEN 0 0 [facility], T VISIT INTERNAL SHRUTHI F 15 MED [facility] - 0 0 [facility] OUTPATIEN INC T [facility] 0 0 [facility] OUTPATIEN INC T OFFICE 92975 EPISCOPALJesús FLOWERS OUTPATIEN 9 9 CARDIOTHO SOLEDAD T VISIT RACIC 10 SURGI MINUTES [facility]OSP[facility] - 9 9 [facility] OUTPATIEN INC T OFFICE 74595 LIONEL FLOWERS, OUTPATIEN 9 9 LAILA Francis T VISIT 10 MINUTES [facility] - 9 9 [facility] OUTPATIEN INC T OFFICE 50460 [facility]ION[facility] FLOWERS, CONSULTAT 9 9 LAILA Francis LAILA Penny ION NEW/ESTAB PATIENT 40 MIN OFFICE 23609 [facility] BARB OUTPATIEN 9 9 YAHAIRA WALDRON T VISIT INTERNAL SHRUTHI F 15 MED MINUTES OFFICE 04347 [facility] WESKEANNIKAE OUTPATIEN 9 9 [facility] V[facility]NAL SHRUTHI F 15 MED MINUTES [facility] - 9 9 [facility]PAT[facility]EN [facility] - 9 9 [facility] OUTPATIEN INC T OFFICE 63854 YOGI BASS 9 9 MEDICAL KIRA D ION SERV NEW/ESTAB FOUNDATIO PATIENT 40 MIN EMERGENCY 69826 [facility] 9 9 [facility] DEPARTMEN INC T VISIT MODERATE SEVERITY [facility] - 9 9 [facility] OUTPATIEN INC T EMERGENCY 28521 KEVIN MALDONADO, 9 9 [facility] T VISIT ON HIGH/URGE NT SEVERITY [facility] - 9 9 [facility] OUTPATIEN INC T OFFICE 67988 [facility] YOSELYN SZYMANSKI 9 9 YAHAIRA NOLAND T VISIT INTERNAL 15 MED MINUTES OFFICE 64429 [facility] BARB OUTPATIEN 8 8 YAHAIRA WALDRON T VISIT INTERNAL SHRUTHI F 15 MED MINUTES OFFICE 37500 CLAUDY FARRISPATIRAÚL 8 8 MED[facility] T VISIT SERV 15 FOUNDATIO MINUTES [facility]OSPITAL [facility] - 8 8 [facility] OUTPATIEN INC [facility] - 8 8 [facility] OUTPATIEN INC T OFFICE 60513 YOSELYN FARRIS 8 8 MED[facility] T VISIT SERV 25 FOUNDATIO MINUTES [facility]OSPITAL [facility] - 8 8 [facility] OUTPATIEN INC T OFFICE 73850 YOGI FARRIS 8 8 MED[facility] ION SERV NEW/ESTAB FOUNDATIO PATIENT 60 MIN EMERGENCY 54654 [facility] 8 8 [facility] DEPARTMEN INC T VISIT MODERATE SEVERITY [facility] - 8 8 [facility] OUTPATIEN INC T OFFICE 37892 YOSELYN FARRIS 8 8 MED[facility] T VISIT SERV 15 FOUNDATIO MINUTES [facility]OSPITAL [facility] - 8 8 [facility] OUTPATIEN INC T OFFICE 11661 YOGI FARRIS 8 8 MED[facility] ION SERV NEW/ESTAB FOUNDATIO PATIENT 60 MIN OFFICE 23002 [facility] BARB OUTPATIEN 8 8 Jesús SYED JR VISIT INTERNAL SHRUTHI F 15 MED MINUTES [facility] - 8 8 [facility] OUTPATIEN INC [facility] - 8 8 [facility] OUTPATIEN INC T OFFICE 68773 [facility] NESSA OUTPATIEN 8 8 [place] VISIT INTERNAL 25 MED MINUTES PERIODIC 31676 [facility] 8 8 [facility] OF PATIENT 40-64YRS [facility] OFFICE 35085 [facility] BARB TOPETE 8 8 Jesús SYED JR VISIT INTERNAL SHRUTHI 15 MED MINUTES [facility] 8 8 [facility] 86275 [facility] YOSELYN SZYMANSKI 8 8 YAHAIRA Espinosa VISIT INTERNAL 15 MED MINUTES OFFICE [id number] [place] YOSELYN SZYMANSKI 8 8 YAHAIRA Espinosa VISIT INTERNAL 25 MED MINUTES
--- OUTSIDE RECORDS SUMMARY | 2017-08-21 23:38 | External Medical Summary Rpt | CCD ---
Demographics Preferred Language Yoruba Marital Status Unknown Pentecostalism Affiliation Unknown Race Unknown Ethnic Group Unknown Author Author , JARROD GARAY Address Unknown Phone Immunization No patient found.
--- OUTSIDE RECORDS SUMMARY | 2017-08-21 23:38 | External Medical Summary Rpt | CCD ---
Author Author [facility] Organization [facility] Address Unknown Phone Unavailable Purpose Continuity of Care Document - through 2016
--- OUTSIDE RECORDS SUMMARY | 2017-08-21 23:38 | External Medical Summary Rpt | CCD ---
Demographics Preferred Language Tajik Marital Status Unknown Mu-Ism Affiliation Unknown Race Unknown Ethnic Group Unknown Author Author , JARROD GARAY Address Unknown Phone Immunization No patient found.
--- OUTSIDE RECORDS SUMMARY | 2017-08-22 00:02 | External Medical Summary Rpt | CCD ---
Author Author , JARROD Organization JARROD Address Unknown Phone [email or web address] Care Team Providers Care Air And Water Tester Name Role Phone CAMERONJEANNETTE GUZMÁN, CAMERON Unavailable Unavailable ARIELLE ANITA LEE MD, PSC, Unavailable Unavailable ANITA LEE MD, PSC ADIS JR LA, Unavailable Unavailable ADIS JR LA ASLAM AZH, ASLAM AZH Unavailable Unavailable BEINEKE, BEINEKE Unavailable Unavailable BEINEKE FAHEEM, BEINEKE Unavailable Unavailable FAHEEM BESSON, BESSON Unavailable Unavailable BESSON ANN, BESSON Unavailable Unavailable ANN BESSON ANN, BESSON Unavailable Unavailable ANN ATWOOD ALL, ATWOOD ALL Unavailable Unavailable SANTHOSH GIL, Unavailable Unavailable SANTHOSH GIL THO, BROSTER Unavailable Unavailable THO BUX, BUX Unavailable Unavailable BUX ANJ, BUX ANJ Unavailable Unavailable Ten ALANIS MD Unavailable Unavailable PSC, Ten ALANIS MD PSC NATHANIEL LEO, NATHANIEL Unavailable Unavailable LEO [facility], Unavailable Unavailable [facility] Unavailable [facility], [facility] Unavailable Unavailable [facility], [facility] Unavailable Unavailable [facility], [facility] & Unavailable Unavailable [...] OF Unavailable Unavailable [facility], [facility] COOK, COOK Unavailable Unavailable EUGENIO LA, Unavailable Unavailable EUGENIO LA EUGENIO LA, Unavailable Unavailable EUGENIO LA EUGENIO, TAO, Unavailable Unavailable EUGENIO, TAO CORINA RAIMUNDO, CORINA Unavailable Unavailable RAIMUNDO MANDUJANO MIS, MANDUJANO MIS Unavailable Unavailable ALBERT OVIDIO, ALBERT OVIDIO Unavailable Unavailable DUFF, DUFF Unavailable Unavailable [facility] Unavailable [place], [facility] [place] [facility] Un[facility] [place] FALLUJI ROM, FALLUJI Unavailable Unavailable ROM FAUGHN LUEVANO, FAUGHN Unavailable Unavailable LUEVANO ELIZABETH AUDRA, Unavailable Unavailable ELIZABETH AUDRA ELIZABETH AUDRA, Unavailable Unavailable ELIZABETH AUDRA BEAN CHR, BEAN CHR Unavailable Unavailable DENISSE HENRRY, DENISSE Unavailable Unavailable HENRRY DENISSE, SHANNAN S, Unavailable Unavailable SHANNAN MALDONADO S [facility], Unavailable Unavailable [facility] Unavailable Unavailable [facility], [facility] Unavailable Unavailable [facility], [facility] Unavailable Unavailable INC, [facility] Unavailable Unavailable HOSPITAL P, [facility] LUDIN SZYMANSKI HARVEY, Unavailable Unavailable LUDIN [facility], Unavailable Unavailable [facility] LOZADA TRA, LOZADA TRA Unavailable Unavailable IMAM MOH, IMAM MOH Unavailable Unavailable VINCENT THOMAS, VINCENT Unavailable Unavailable THOMAS MONTANO SHANNON, MONTANO Unavailable Unavailable SHANNON MONTANO SHANNON, MONTANO Unavailable Unavailable SHANNON LEAL CHA, MEL Unavailable Unavailable FAUSTO SALGADO, SALGADO Unavailable Unavailable STEPHIE JOSS, STEPHIE JOSS Unavailable [facility]available [facility], [facility] Unavailable Unavailable MEDICAL G, [facility] MED[facility] G TOSHIA THO, TOSHIA THO [...] Unavailable [facility] Unavailable Unavailable SPECIALISTS,, [facility], [facility] Unavailable Unavailable INTERNAL MED, [facility] INTER[facility] MED DOUGHERTY ALEXUS, DOUGHERTY Unavailable Unavailable ALEXUS SHAMIKA HERNANDEZ MD Unavailable Unavailable KIRA GENAO MD, MAIR, Unavailable Unavailable KIRA Russell ADRIEL HAM, ADRIEL HAM Unavailable Unavailable ADRIEL HAM, ADRIEL HAM Unavailable Unavailable [facility] Unavailable Unavailable SERVICES, [facility] MCKEMIE JR [facility], Unavailable Unavailable [...] ANAHI CHARIS ANAHI, CHARIS Unavailable Unavailable ANAHI MONYFRANCISCO JAVIER HAWKINS E, Unavailable Unavailable FRANCISCO JAVIER SYKES E [facility], Unavailable Unavailable [facility] Kendrick Lal MD, Unavailable Unavailable Kendrick Lal MD [facility], Unavailable Unavailable [facility] CHRIS MOURA, Unavailable Unavailable CHRIS MOURA, Unavailable Unavailable CHRIS Christianson MD, Unavailable Unavailable Monica Christianson MD [facility] # Unavailable Unavailable [id number], [facility] # [id number] [place] ANAHI, Unavailable Unavailable KARLY EUBANKS, TICO EUBANKS Unavailable Unavailable MERDAVID VALERIA, MERDAVID VALERIA Unavailable Unavailable Purpose Continuity of Care Document - 12-02-2007 through 2016 Problems Code Diagnosis DOS Provider Status M545 LOW BACK 04-27-2017 [facility] R300 DYSURIA 03-24-2017 [facility] [id number] SPONDYLOSIS 03-03-2017 ANITA LEE, W/O , PSC MYELOPATH/R ADICULOPATH Y LUMB RGN 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 [id number] OTHER LONG 02-24-2017 [facility] TERM [facility] [...] MEM HOSP HYPERTENSIO INC N I2510 ASHD KEWEENAW 12-31-2016 [facility] CORONARY [facility] ARTERY W/O INC ANGINA PECTORIS I739 PERIPHERAL 12-31-2016 [facility] VASCULAR [facility] DISEASE INC UNSPECIFIED M461 SACROILIITI 12-30-2016 [facility] S NOT [facility] ELSEWHERE INC CLASSIFIED I200 UNSTABLE 11-26-2016 [facility] ANGINA [facility] INC I209 ANGINA 11-26-2016 [facility] PECT[facility]IS PHYSICIANS UNSPECIFIED GROUP 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 [facility] INSUFFICIEN CY I6523 OCCLUSION & 11-26-2016 [facility] STENOSIS [facility] BILATERAL IMAGING ASS CAROTID ARTERIES R0602 SHORTNESS 11-26-2016 [facility] OF BREATH [facility] INC Z955 PRESENCE OF 11-26-2016 [facility] CORONARY [facility] ANGIOPLASTY INC IMPLANT & GRAFT J449 CHRONIC 11-04-2016 [facility] OBSTRUCTIVE [facility]ICAL PULMONARY IMAGING ASS DISEASE UNS J9811 ATELECTASIS 11-04-2016 [facility] R05 COUGH 11-04-2016 [facility] R079 CHEST PAIN 11-04-2016 [facility] UNSPECIFIED [facility]ING ASS I129 HYPERTENSIV 11-03-2016 [facility] Tovar CKD [facility] W/STAGE 1-4 HOSPITAL P CKD OR UNS CKD N189 CHRONIC 11-03-2016 [facility] DISEASE INC UNSPECIFIED Z720 TOBACCO USE 11-03-2016 [facility] INC K5900 CONSTIPATIO 08-27-2016 [facility] N [facility] UNSPECIFIED INTERNAL MED N390 URINARY 08-27-2016 [facility] TRACT [facility] INFECTION INTERNAL SITE NOT MED SPECIFIED R102 PELVIC AND 08-27-2016 [facility] PERINEAL [facility] PAIN INTERNAL MED Q11945 ENCOUNTER 08-27-2016 [facility] GENERAL RTN W/O ABNORMAL FIND Z124 ENCOUNTER 08-27-2016 [facility] OTHER [facility] SCREENING INTERNAL MALIG MED NEOPLASM CERVIX [id number] PERSONAL 08-27-2016 [facility] HISTORY OF VALLEY COLONIC INTERNAL POLYPS MED Z1231 ENCOUNTER 08-26-2016 [place] SCREENING MEDICAL MAMMO MALIG IMAGING ASS NEOPLASM BREAST Z5181 ENCOUNTER 08-05-2016 [facility] THERAPEUTIC LA DRUG LEVEL MONITORING R51 HEADACHE 06-11-2016 [facility] INTERNAL MED K219 GASTRO-ESOP 05-29-2016 [facility]FLUX [facility] DISEASE INC WITHOUT ESOPHAGITIS L723 SEBACEOUS 05-29-2016 [facility] CYST [facility] INC L729 FOLLICULAR 05-29-2016 [facility], SKIN & SUBQ PLLC TISSUE UNS H6123 IMPACTED 03-20-2016 [facility] CERUMEN PHYSICIANS BILATERAL GROUP H6523 CHRONIC 03-20-2016 [facility] SEROUS PHYSICIANS OTITIS GROUP MEDIA BILATERAL G8929 OTHER 03-17-2016 [facility] CHRONIC [facility] PAIN INTERNAL MED R109 UNSPECIFIED 03-17-2016 [facility] ABDOMINAL [facility] PAIN INTERNAL MED G250 ESSENTIAL 01-23-2016 [facility] R202 PARESTHESIA 01-23-2016 [facility] K269 DUOD ULCR 11-12-2015 [facility] UNS AC SURGIAL OR CHRON ASSOCIATE W/O HEMORR OR PERF K3189 OTHER 11-12-2015 [facility] DISEASES OF SURGIAL STOMACH ASSOCIATE AND DUODENUM K319 DISEASE OF 11-12-2015 [facility] DUODENUM DUBILIER UNSPECIFIED R0789 OTHER CHEST 11-12-2015 [facility] PAIN SURGIAL ASSOCIATE R1013 EPIGASTRIC 11-12-2015 [facility] R634 ABNORMAL 11-12-2015 [facility] WEIGHT LOSS [...] 09-02-2015 [facility], NEURITIS PLLC UNSPECIFIED C21243 PAIN IN 09-02-2015 [place] LEFT LOWER MEDICAL LEG IM[facility] ASS Q48025 PAIN IN 09-02-2015 [facility] LEFT FOOT PHYSICIANS, PLLC [id number] UNSPECIFIED 09-02-2015 [facility] INJURY [facility]ICAL LEFT FOOT IMAGING ASS INITIAL ENCOUNTER H524 PRESBYOPIA 08-09-2015 [place] 28257 INTESTINAL 07-20-2015 [facility] INFECTIONS KENDRICK DUE INTERNAL CLOSTRIDIUM MED DIFFICILE 57278 DEHYDRATION 07-08-2015 [facility] INC 87681 CORONARY 07-08-2015 [facility] ATHEROSCLER [facility] OSIS KEWEENAW INC CORONARY ARTERY 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 INTERNAL UNSPECIFIED MED 5589 OTH&UNSPEC 07-08-2015 [facility] NONINFECTIO VALLEY US INTERNAL GASTROENTER MED ITIS&COLITI S 5990 URINARY 07-08-2015 [facility] TRACT [facility] INFECTION INTERNAL SITE NOT MED SPECIFIED V1089 PERSONAL 07-08-2015 [facility] HISTORY [facility] MALIGNANT INC NEOPLASM OTHER SITE V4509 OTHER 07-08-2015 [facility] SPECIFIED [facility] CARDIAC INC DEVICE IN SITU V4582 POSTSURG 07-08-2015 [facility] PERCUT [facility] TRANSLUMINA INC L COR ANGPLSTY STS 5849 ACUTE 07-07-2015 [facility] KIDNEY [facility]ANS, FAILURE PLLC UNSPECIFIED 28462 ABDOMINAL 07-07-2015 [place] PAIN, MEDICAL GENERALIZED IMAGING ASS 7823 EDEMA 07-02-2015 [facility] INTERNAL MED 5180 PULMONARY 06-30-2015 [facility] COLLAPSE [facility] 35830 SWELLING OF 06-30-2015 [facility] LIMB [facility] 5952 OTHER 06-19-2015 [facility] 5989 UNSPECIFIED 06-19-2015 [facility] P 64834 URINARY 06-19-2015 [facility] P 12463 OTHER 06-19-2015 [facility] ABNORMALITY ANESTH OF OF THE BLUE URINATION 03474 OTHER 06-04-2015 [facility] CHRONIC [facility] PAIN INTERNAL MED 4019 UNSPECIFIED 06-04-2015 [facility] ESSENTIAL VAL[facility] HYPERTENSIO INTERNAL N MED 70382 INSOMNIA 06-04-2015 [facility] UNSPECIFIED VALLEY INTERNAL MED 496 CHRONIC 05-29-[address] [facility] [address] [facility] OBSTRUCTION INTERNAL NEC MED 5609 UNSPECIFIED 05-29-2015 [facility] INTESTINAL [facility] INTERNAL OBSTRUCTION MED 39816 DEGEN 2015 SHAMIKA LEE LUMBAR/LUMB OSACRAL INTERVERTEB RAL DISC 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 2015 SHAMIKA TERRY MD NEURITIS/RA DICULITIS UNSPEC 7873 FLATULENCE 2015 [place] ERUCTATION MEDICAL AND GAS IMAGING ASS PAIN 69537 ABDOMINAL 2015 [place] PAIN, MEDICAL UNSPECIFIED IMAGING ASS SITE 4168 OTHER 05-15-2015 [facility] CHRONIC HEALTH PULMONARY MEDICAL G HEART DISEASES 4240 MITRAL 05-15-2015 [facility] VALVE HEALTH DISORDERS MEDICAL G 4242 TRICUSPID 05-15-2015 [facility] VALVE HEALTH DISORDERS MEDICAL G SPEC NONRHEUMATI C 43048 CHEST PAIN 05-15-2015 [facility] UNSPECIFIED HEALTH MEDICAL G 13908 OTHER CHEST 05-02-2015 [facility] PAIN HEALTH MEDICAL G V7281 PRE-OPERATI 05-02-2015 [facility] HEALTH CARDIOVASCU MEDICAL G LAR EXAMINATION 7936 NONSPEC ABN 04-25-2015 [facility] FINDNG RAD PHYSICIANS & OTH EXAM GROUP ABDOMINAL AREA 40743 OTHER 04-25-2015 [facility] ABNORMAL PHYSICIANS FINDING GROUP RADIOLOGICA L EXAM BREAST 5768 OTHER 04-10-2015 [place] SPECIFIED MEDICAL DISORDERS IMAGING ASS OF BILIARY TRACT 7242 LUMBAGO 03-29-2015 [facility] 7906 OTHER 03-28-2015 [facility] ABNORMAL [facility] BLOOD INC CHEMISTRY 7881 DYSURIA 02-15-2015 [facility] 31106 ABDOMINAL 02-15-2015 [place] PAIN OTHER MEDICAL SPECIFIED IMAGING ASS SITE 7245 UNSPECIFIED 02-07-2015 [facility] BACKACHE [facility] INC V571 OTHER 02-07-2015 [facility] PHYSICAL [facility] THERAPY INC 24306 UNSPECIFIED 02-06-2015 [facility] P 3384 CHRONIC 11-20-2014 [facility] PAIN VALLEY SYNDROME INTERNAL MED 19725 OSTEOARTHRO 11-20-2014 [facility] S UNSPEC VALLEY WHETHER INTERNAL GEN/LOC MED UNSPEC SITE 7213 LUMBOSACRAL 11-20-2014 [facility] SPONDYLOSIS IMAGING ASS WITHOUT MYELOPATHY V7612 OTHER 11-20-2014 [place] SCREENING MEDICAL MAMMOGRAM IMAGING ASS 3831 CHRONIC 09-21-2014 J[facility] TU MASTOIDITIS 4760 CHRONIC 08-28-2014 [facility] LARYNGITIS 41255 ESOPHAGEAL 08-28-2014 [facility] REFLUX 4408 ATHEROSCLER 08-11-2014 [facility] OSIS OF VALLEY OTHER INTERNAL SPECIFIED MED ARTERIES 35488 ABDOMINAL 08-11-2014 [facility] PAIN, VALLEY EPIGASTRIC INTERNAL MED 29253 HYPOXEMIA 07-30-2014 [facility] 47426 OCCLUSION&S 06-27-2014 WYATT RICHARDOS CAROTID ART W/O MENTION INFARCT 89062 DIAB W/O 06-26-2014 [facility] COMP TYPE YUR II/UNS NOT STATED UNCNTRL 93067 ELEVATED 06-26-2014 CH[facility] CARCINOEMBR YUR YONIC ANTIGEN 486 PNEUMONIA, 06-25-2014 MONTANO SHANNON ORGANISM UNSPECIFIED V7282 PRE-OPERATI 06-25-2014 MONTANO SHANNON VE RESPIRATORY EXAMINATION 4111 INTERMEDIAT 06-21-2014 VICK[facility] Tovar CORONARY HEART SYNDROME SPECIALISTS , 15663 OSTEOARTHRO 06-12-2014 CHARIS ANAHI SIS UNSPEC WHETHER GEN/LOC LOWER LEG 28634 OSTEOARTHRO 06-12-2014 [place] [facility] SIS UNSPEC SERV WHETHER FOUNDATION GEN/LOC ANK&FOOT 13477 PAIN IN 06-12-2014 CHARIS ANAHI JOINT, LOWER LEG 39262 PAIN IN 05-10-2014 [facility] JOINT, ANN ANKLE AND FOOT 8248 UNSPECIFIED 05-10-2014 [facility] FRACTURE OF ANKLE 7177 CHONDROMALA 03-30-2014 PETTE[facility] JAM CHAIM OF P[place]LLA 53843 PES 03-30-2014 [facility] JAM ANSERINUS TENDINITIS OR BURSITIS 40617 OTHER 03-30-2014 [place] [address] 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 ADRIEL HAM LILI SYNDROME CERVICAL REGION 7234 BRACHIAL 03-23-2014 ADRIEL HAM NEURITIS OR RADICULITIS NOS 7226 DEGENERATIO 12-19-2013 ELIZABETH N AUDRA INTERVERTEB RAL DISC SITE UNSPEC 7292 UNSPECIFIED 12-19-2013 ELIZABETH NEURALGIA AUDRA NEURITIS AND RADICULITIS 35386 OTHER 10-31-2013 EUGENIO SPECIFIED LA DISORDERS OF BREAST 2724 OTHER AND 10-12-2013 ELIZABETH UNSPECIFIED AUDRA HYPERLIPIDE LIN V7231 ROUTINE 10-12-2013 [facility] DARIUSZ AL EXAMINATION 29886 OCCL&STENOS 05-09-2013 EUGENIO MX&BILAT LA PRECERBRL ART W/O INFARCT 7295 PAIN IN 02-25-2013 BARB WALDRON SOFT SOL[facility] TISSUES OF LIMB 5781 BLOOD IN 12-16-2012 [facility] STOOL [facility] INC 83301 DIVERTICULO 12-14-2012 BESSON ANN SIS OF COLON 0091 COLITIS 12-13-2012 [facility] ENTERIT&GAS LUDWIN TROENTERIT INF ORIGIN 2662 OTHER 10-25-2012 BARB WAL[facility]ON B-COMPLEX SOLEDAD DEFICIENCIE S 20469 ABDOMINAL 2012 [facility] PAIN RIGHT [facility] UPPER INC QUADRANT V8801 ACQUIRED 04-22-2012 [place] ABSENCE OF MEDICAL BOTH CERVIX IMAGING ASS AND UTERUS 8470 NECK SPRAIN 09-04-2011 [facility] AND STRAIN [facility] INC 2113 BENIGN 06-10-2011 C T[facility] NEOPLASM OF ZULEYMASTALEXEI COLON PSC V7651 SPECIAL 05-29-2011 [facility] SCREENING [facility] FOR INC MALIGNANT NEOPLASMS COLON 45636 UNSPECIFIED 05-22-2011 C YTLER ANNABELLE CONSTIPATIO PSC N 5693 HEMORRHAGE 05-22-2011 C TYLER OF RECTUM ANNABELLE AND ANUS PSC 5283 CELLULITIS 04-11-2011 [facility] AND ABSCESS VALLEY OF ORAL INTERNAL SOFT MED TISSUES 42652 OTHER ACUTE 10-11-2010 [facility] POSTOPERATI SERVICES VE PAIN 7820 DISTURBANCE 10-11-2010 [facility] OF SKIN EMERGENCY SENSATION SERVICES 31853 OTHER 10-11-2010 [facility] SPECIFIED [facility] COMPLICATIO INC NS NEC V5869 LONG-TERM 09-04-2010 [facility] (CURRENT) RELIGION USE OF HOSP OTHER MEDICATIONS 4928 OTHER 08-12-2010 [facility] EMPHYSEMA [facility] INTERNAL MED 7862 COUGH 08-11-2010 [facility] 28470 OTHER 08-10-2010 [facility] DISEASES OF EMERGENCY NASAL SERVICES CAVITY AND SINUSES 7291 UNSPECIFIED 08-10-2010 [facility] MYALGIA [facility] MYOSITIS 73851 FEVER 08-10-2010 [facility] UNSPECIFIED [facility]GENCY SERVICES 490 BRONCHITIS 07-31-2010 [facility] NOT [facility]LEY SPECIFIED INTERNAL ACUTE OR MED CHRONIC 4919 UNSPECIFIED 01-30-2010 [facility] CHRONIC [facility] BRONCHITIS INC 4660 ACUTE 12-18-2009 [facility] BRONCHITIS [facility] INC 7859 OTHER 12-18-2009 [place] SYMPTOMS MEDICAL INVOLVING IMAGING CARDIOVASCU ASSOCIATES LAR SYSTEM 4619 ACUTE 08-25-2009 [facility] SINUSITIS, VALLEY UNSPECIFIED INTERNAL MED 64894 PRIMARY 04-16-2009 [place] MEDICAL LOCALIZED SERV OSTEOARTHRO FOUNDATIO SIS LOWER LEG 6929 CONTACT 11-22-2008 [facility] DERMATITIS& VALLEY OTHER INTERNAL ECZEMA DUE MED UNSPEC CAUSE 98201 OTHER 09-25-2008 [facility] ANXIETY KENDRICK STATES INTERNAL MED 4279 UNSPECIFIED 09-25-2008 [facility] CARDIAC K[facility]ICK DYSRHYTHMIA INTERNAL MED 05050 ABDOMINAL 09-06-2008 [place] [facility] PAIN, SERV PERIUMBILIC FOUNDATIO 14681 ACUTE 07-02-2008 [facility] GASTRITIS [facility] WITHOUT INC MENTION OF HEMORRHAGE 42548 UNSPECIFIED 05-10-2008 [place] [facility] SERV ESOPHAGITIS FOUNDATIO 54740 ATROPHIC 05-10-2008 PATHOLOGY & GASTRITIS CYTOLOGY WITHOUT LAB MENTION OF HEMORRHAGE 22084 UNS 05-10-2008 [place] MEDICAL GASTRITIS&G SERV ASTRODUODIT FOUNDATIO IS W/O MENTION HEMORR 03303 DUODENITIS 05-10-2008 PATHOLOGY & WITHOUT CYTOLOGY MENTION OF LAB HEMORRHAGE 70246 EFFUSION OF 03-28-2008 TAO C LOWER LEG EUGENIO JOINT 2409 GOITER, 03-17-2008 [place] UNSPECIFIED [facility]ICAL IMAGING ASSOCIATES 2410 NONTOXIC 03-17-2008 [facility] UNINODULAR [facility] GOITER INC 91904 DYSPHAGIA 03-17-2008 [facility] DUE TO MEM HOSP CEREBROVASC INC ULAR DISEASE 7179 UNSPECIFIED 03-14-2008 [facility] INTERNAL [facility] DERANGEMENT INC OF KNEE 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 V762 SCREENING 03-09-2008 [facility] [place] INC MALIGNANT NEOPLASM OF THE CERVIX 7224 DEGENERATIO 02-14-2008 [facility] N OF KENDRICK CERVICAL INTERNAL INTERVERTEB MED RAL DISC 22964 SPASM OF 02-14-2008 [facility] MUSCLE K[facility] INTERNAL MED 462 ACUTE 01-18-2008 [facility] PHARYNGITIS [facility] INC 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 INC 460 ACUTE 01-13-2008 [facility] NASOPHARYNG K[facility] ITIS INTERNAL MED [id number] Chest pain [facility] [id number] Active [facility] 558.9 Colitis [facility] [id number] Chronic [facility] Allergies, Adverse Reactions, Alerts Type Allergy [...] CY NT HI AN A IN C BU 10 08 30 30 00 EA Ac AK 37 -2 -[address] ti OP 00 1- 5- 00 SI ve IO 10 20 20 49 DE N 10 17 17 51 HC 3 46 PH L AR XL MA CY 15 0 OF MG CY NT TA HI BL AN ET A IN C ES 65 08 09 30 30 00 EA Ac CI 86 -2 -[address] ti TA 20 1- 5- 00 00 SI ve LO 37 20 20 49 DE AK 40 17 17 17 AM 1 16 PH AR 10 MA CY MG OF TA CY BL NT ET HI AN A IN C SI 16 08 30 30 00 EA Ac MV 71 -2 -[address] ti 40 1- 5- 00 00 SI ve TA 68 20 20 49 DE TI 30 17 17 17 N 3 17 PH 20 AR MA MG CY TA OF BL CY ET NT HI AN A IN C IS 13 08 30 30 00 EA Ac OS 66 -2 -[address] ti OR 80 1- 5- 00 00 SI ve BI 10 20 20 49 DE DE 40 17 17 51 1 45 PH MN AR MA ER CY 30 OF CY MG NT HI TA AN BL A ET IN C OM 62 08 09 30 30 00 EA Ac EP 17 -2 -[address] ti RA 50 1- 5- 00 00 SI ve ZO 13 20 20 49 DE LE 64 17 [address] AR MA 40 CY MG OF CY CA NT PS HI UL AN E A IN C RA 68 08 09 30 30 00 EA Ac NI 46 -2 -[address] ti TI 20 1- 5- 00 00 SI ve DI 24 20 20 49 DE NE 92 17 17 86 0 56 PH 30 AR 0 MA MG CY TA OF BL CY ET NT HI AN A IN C PO 51 08 09 52 30 00 EA Ac LY 99 -2 -[address] ti ET 10 1- 5- 00 00 SI ve HY 45 20 20 0 49 DE LE 75 17 17 86 NE 7 57 PH AR GL MA YC CY OL OF 33 CY 50 NT HI PO AN WD A IN C ME 65 08 09 60 30 00 EA Ac TO 86 -2 -[address] ti AK 20 1- 5- 00 00 SI ve OL 06 20 20 49 DE OL 39 17 17 86 9 55 PH TA AR RT MA RA CY TE OF 50 CY NT MG HI AN TA A B IN C GA 16 08 09 12 [...] AN ET A IN C RA 68 07 08 30 30 00 EA Ac NI 46 -2 -[address] ti TI 20 0- 8- 00 00 SI ve DI 24 20 20 47 DE NE 92 17 17 66 0 10 PH 30 AR 0 MA MG CY TA OF BL CY ET NT HI AN A IN C ME 65 07 08 60 30 00 EA Ac TO 86 -2 -[address] ti AK 20 0- 8- 00 00 SI ve OL 06 20 20 48 DE OL 39 17 17 83 9 28 PH TA AR RT MA RA CY TE OF 50 CY NT MG HI AN TA A B IN C ES 65 07 08 30 30 00 EA Ac CI 86 -2 -[address] ti TA 20 0- 8- 00 00 SI ve LO 37 20 20 49 DE AK 40 17 17 17 AM 1 16 [...] ET NT HI AN A IN C IS 13 07 08 [...] 07 08 30 30 00 EA Ac AK 37 -2 -[address] ti OP 00 0- 8- 00 00 SI ve IO 10 20 20 49 DE N 10 17 17 51 HC 3 46 PH L AR XL MA CY 15 0 OF MG CY NT TA HI BL AN ET A IN C GA 16 07 08 [...] ET NT HI AN A IN C IS 13 06 07 30 30 00 EA Ac OS 66 -1 -[address] ti OR 80 9- 4- 00 00 SI ve BI 10 20 20 47 DE DE 40 17 17 21 1 21 PH MN AR MA ER CY 30 OF CY MG NT HI TA AN BL A ET IN C TR 50 06 07 30 30 00 EA Ac AZ 11 -1 -[address] ti OD 10 9- 4- 00 00 SI ve ON 44 20 20 48 DE E 10 17 17 12 15 1 44 PH 0 AR MG MA CY TA BL OF ET CY NT HI AN A IN C BU 10 06 07 30 30 00 EA Ac AK 37 -1 -[address] ti OP 00 9- 4- 00 00 SI ve IO 10 20 20 48 DE N 10 17 17 83 HC 3 29 PH L AR XL MA CY 15 0 OF MG CY NT TA HI BL AN ET A IN C OM 62 06 07 30 30 00 EA Ac EP 17 -1 -[address] ti RA 50 9- 4- 00 00 SI ve ZO 13 20 20 48 DE LE 64 17 [address] AR MA 40 CY MG OF CY CA NT PS HI UL AN E A IN C RA 68 06 07 30 [...] 86 -1 -[address] ti AK 20 9- 4- 00 00 SI ve OL 06 20 20 48 DE OL 39 17 17 83 9 28 PH TA AR RT MA RA CY TE OF 50 CY NT MG HI AN TA A B IN C SI 16 06 07 30 [...] ve LO 37 20 20 49 DE AK 40 17 17 17 AM 1 16 PH AR 10 MA CY MG OF TA CY BL NT ET HI AN A IN C PO 51 06 07 52 [...] ve LO 37 20 20 48 DE AK 40 17 17 37 AM 1 26 [...] 86 -2 -[address] ti AK 20 1- 3- 00 00 SI ve OL 06 20 20 48 DE OL 39 17 17 83 9 28 PH TA AR RT MA RA CY TE OF 50 CY NT MG HI AN TA A B IN C BU 10 05 06 30 30 00 EA Ac AK 37 -2 -[address] ti [...] .[address] ti SS 15 4- 00 SI ve IU 72 20 20 48 DE M 01 17 17 61 CL 0 82 PH AR ER MA CY 20 OF ME CY Q NT TA HI BL AN ET A IN C TR 50 04 05 30 30 00 EA Ac AZ 11 -2 -[address] ti OD 10 5- 9 00 SI ve ON 44 20 20 48 DE E 10 17 17 12 15 1 44 PH 0 AR MG MA CY TA BL OF ET CY NT HI AN A IN C GA 16 04 05 90 30 00 EA Ac BA 71 -2 -[address] ti PE 40 5- 9 00 SI ve NT 33 20 20 47 DE IN 00 17 17 28 2 68 PH 60 AR 0 MA MG CY TA OF BL CY ET NT HI AN A IN C DI 00 04 05 60 30 00 EA Ac CL 22 -1 -[address] ti OF 82 8- 00 SI ve EN 55 20 20 48 DE AC 19 17 17 01 6 07 PH SO AR D MA EC CY 75 OF CY MG NT HI TA AN B A IN C ME 65 04 05 60 30 00 EA Ac TO 86 -1 -[address] ti AK 20 8- 00 SI ve OL 06 20 20 47 DE OL 39 17 17 28 9 69 PH TA AR RT MA RA CY TE OF 50 CY NT MG HI AN TA A B IN C BU 10 04 05 30 30 00 EA Ac AK 37 -1 -[address] ti OP 00 8- 2 00 SI ve IO 10 20 20 47 DE N 10 17 17 57 HC 3 33 PH L AR XL MA CY 15 0 OF MG CY NT TA HI BL AN ET A IN C IS 13 04 05 30 30 00 EA Ac OS 66 -1 -[address] ti OR 80 8- 2- 00 SI ve BI 10 20 20 47 DE DE 40 17 17 21 1 21 PH MN AR MA ER CY 30 OF CY MG NT HI TA AN BL A ET IN C RA 68 04 05 30 30 00 EA Ac NI 46 -1 -[address] ti TI 20 8- 2- 00 SI ve DI 24 20 20 [...] HI AN A IN C ES 65 04 05 30 30 00 EA Ac CI 86 -1 -[address] ti TA 20 4- 2- 00 00 SI ve LO 37 20 20 48 DE [place] 40 17 17 37 AM 1 26 [...] 5 73 PH CE AR TA MA LA CY NO PH OF N CY 10 NT -3 HI 25 AN A IN C VE 00 04 [...] HI AN A IN C RA 68 03 04 30 30 00 EA Ac NI 46 -1 -[address] ti TI 20 7- 4- 00 00 SI ve DI 24 20 20 47 DE NE 92 17 17 66 0 10 PH 30 AR 0 MA MG CY TA OF BL CY ET NT HI AN A IN C OM 62 03 04 30 30 00 EA Ac EP 17 -1 -[address] ti RA 50 7- 00 SI ve ZO 13 20 20 46 DE LE 64 17 [address] AR MA 40 CY MG OF CY CA NT PS HI UL AN E A IN C SI 16 03 04 30 30 00 EA Ac MV 71 -1 -[address] ti 40 7- 00 SI ve TA 68 20 20 46 DE TI 30 17 17 93 N 3 45 PH 20 AR MA MG CY TA OF BL CY ET NT HI AN A IN C ME 65 03 04 60 30 00 EA Ac TO 86 -1 -[address] ti AK 20 7- 00 SI ve OL 06 20 20 47 DE OL 39 17 17 28 9 69 PH TA AR RT MA RA CY TE OF 50 CY NT MG HI AN TA A B IN C IS 13 03 04 30 30 00 EA Ac OS 66 -1 -[address] ti OR 80 00 SI ve BI 10 20 20 47 DE DE 40 17 17 21 1 21 PH MN AR MA ER CY 30 OF CY MG NT HI TA AN BL A ET IN C PO 00 03 04 30 30 00 EA Ac TA 78 -1 -[address] ti SS 15 00 SI ve IU 72 20 20 46 DE M 00 17 17 58 CL 5 32 PH AR ER MA CY 20 OF ME CY Q NT TA HI BL AN ET A IN C BU 10 03 04 30 30 00 EA Ac AK 37 -1 -[address] ti OP 00 00 SI ve IO 10 20 20 47 DE N 10 17 17 57 HC 3 33 PH L AR XL MA CY 15 0 OF MG CY NT TA HI BL AN ET A IN C DI 00 03 04 60 30 00 EA Ac CL 22 -1 -[address] ti OF 82 7- 00 SI ve EN 55 20 20 [...] 5 80 PH CE AR TA MA LA CY NO PH OF CY 7. NT [...] CY NT HI AN A IN C OM [...] AN E A IN C SI 16 02 03 [...] ST ti OF 82 7- 7- 00 SI ve EN 55 20 20 46 DE AC 19 17 17 58 6 24 PH SO AR D MA EC CY 75 OF CY MG NT HI TA AN B A IN C GA 16 02 03 90 30 00 EA Ac BA 71 -1 -[address] ti PE 40 7- 7- 00 00 SI ve NT 33 20 20 47 DE IN 00 17 17 28 2 68 PH 60 AR 0 MA MG CY TA OF BL CY ET NT HI AN A IN C ME 65 02 03 60 30 00 EA Ac TO 86 -1 -[address] ti AK 20 7- 7- 00 00 SI ve OL 06 20 20 47 DE OL 39 17 17 28 9 69 PH TA AR RT MA RA CY TE OF 50 CY NT MG HI AN TA A B IN C HY 00 02 03 [address] 40 -1 -[address] ti OC 60 7- 7- 00 00 SI ve OD 12 20 20 0 47 DE ON 50 17 17 65 -A 5 86 PH CE AR TA MA LA CY NO PH OF N CY 10 NT -3 HI 25 AN A IN C RA 68 02 03 30 30 00 EA Ac NI 46 -1 -[address] ti TI 20 7- 7- 00 00 SI ve DI 24 20 20 47 DE NE 92 17 17 66 0 10 PH 30 AR 0 MA MG CY TA OF BL CY ET NT HI AN A IN C BU 10 02 03 30 30 00 EA Ac AK 37 -1 -[address] ti OP 00 0- 0- 00 00 SI ve IO 10 20 20 47 DE N 10 17 17 57 HC 3 33 PH L AR XL MA CY 15 0 OF MG CY NT TA HI BL AN ET A IN C IS 13 12 12 30 30 00 EA Ac OS 66 -1 -[address] ti OR 80 4- 0- 00 00 SI ve BI 10 20 20 47 DE DE 40 17 17 21 1 21 PH MN AR MA ER CY 30 OF CY MG NT HI TA AN BL A ET IN C PO 00 02 03 30 30 00 EA Ac TA 78 -1 -[address] ti SS 15 0- 0- 00 00 SI ve IU 72 20 20 46 DE M 00 17 17 58 CL 5 32 PH AR ER MA CY 20 OF ME CY Q NT TA HI BL AN ET A IN C LO 65 02 30 30 00 EA Ac SA 86 [...] 86 -1 -[address] ti AK 20 8- 0- 00 00 SI ve OL 06 20 20 47 DE OL 39 17 17 28 9 69 PH TA AR RT MA RA CY TE OF 50 CY NT MG HI AN TA A B IN C HY 02 12 [address] 40 -1 -[address] ti OC 60 8- 0- 00 00 SI ve OD 12 20 20 0 47 DE ON 50 17 17 28 -A 5 90 PH CE AR TA MA LA CY NO PH OF N CY 10 [...] TA AN BL A ET IN C NI 43 01 02 25 25 00 EA Ac TR 59 -1 -[address] ti OG 80 1- 3- 00 00 SI ve LY 43 20 20 47 DE CE 61 17 17 21 RI 1 20 PH N AR 0. MA 4 CY MG OF TA CY BL NT ET HI AN SL A IN C AL 00 01 02 12 30 00 EA Ac AK 78 -0 -[address] ti AZ 11 4- 3- 00 00 SI ve OL 07 20 20 0 47 DE AM 91 17 17 12 1 0 43 PH AR MG MA CY TA BL OF ET CY NT HI AN A IN C ME 00 12 01 21 6 00 EA Ac TH 78 -2 -[address] ti YL 15 7- 7- 00 00 SI ve AK 02 20 20 47 DE ED 20 16 17 02 NI 7 17 PH SO AR LO MA NE CY 4 OF MG CY NT DO HI SE AN PK A IN C DO 47 12 01 20 10 00 EA Ac XY 78 -2 -[address] ti CY 10 7- 7- 00 00 SI ve CL 49 20 20 47 DE IN 00 16 17 02 E 5 18 PH HY AR CL MA AT CY E 10 OF 0 CY MG NT HI CA AN P A IN C TR 50 12 01 30 30 00 EA Ac AZ 11 -2 -[address] ti OD 10 6- 7- 00 00 SI ve ON 44 20 20 46 DE E 10 16 17 66 15 1 99 PH 0 AR MG MA CY TA BL OF ET CY NT HI AN A IN C OM 62 12 01 30 30 00 EA Ac EP 17 -1 -[address] ti RA 50 9- 0- 00 00 SI ve ZO 13 20 20 46 DE LE 64 16 17 [address] AR MA 40 CY MG OF CY CA NT PS HI UL AN E A IN C GA 16 12 01 [...] 86 -1 -[address] ti [place] 20 9- 0- 00 00 SI ve OL 06 20 20 45 DE OL 39 16 17 87 9 70 PH TA AR RT MA RA CY TE OF 50 CY NT MG HI AN TA A B IN C RA 68 12 01 30 30 00 EA Ac NI 46 -1 -[address] ti TI 20 9- 0- 00 00 SI ve DI 24 20 20 45 DE NE 92 16 17 14 0 37 PH 30 AR 0 MA MG CY TA OF BL CY ET NT HI AN A IN C PO 00 12 30 30 00 EA Ac TA 78 [...] AN A IN C HY 00 12 [address] 40 -1 -[address] ti OC 60 9- 0- 00 00 SI ve OD 12 20 20 0 46 DE ON 50 16 17 94 -A 5 36 PH CE AR TA MA LA CY NO PH OF N CY 10 NT -3 HI 25 AN A IN C AL 00 12 01 12 30 00 EA Ac AK 78 -0 -[address] ti AZ 11 6- 9- 00 00 SI ve OL 07 20 20 0 46 DE AM 91 16 17 78 1 0 51 PH AR MG MA CY TA BL OF ET CY NT HI AN A IN C Al 68 04 1 No pr 08 [...] RO 07 -2 SE 90 9- Lo LA 07 20 ng DE 22 13 er 0 20 Ac ti MG ve TA BL ET Li 00 04 1 No si 17 -2 no 23 9- Lo pr 75 20 ng il 91 13 er 0 10 Ac MG ti ve Ta bl et AK 00 04 1 No OT 00 -2 [...] ve 10 ML SY RI NG E CE 00 04 1 No FT 40 -2 RI 97 9- Lo AX 33 20 ng ON 30 13 er E 4 1 Ac GM ti ve AL So 00 04 1 No d 07 -2 Ch 47 9- Lo lo 10 20 ng ri 11 13 er de 3 Ac 0. ti 9% ve 50 ML Ad v So 00 04 0 No d 07 [...] ti 10 ve MG Ta bl et SO 00 04 1 No DI 40 -2 UM 97 8- Lo 10 20 ng CH 10 13 er LO 2 RI Ac DE ti ve 0. 9% SO LN CE 00 04 0 No FT 40 [...] ti V. ve 50 0 MG AL Sa 63 04 1 No li 80 [...] er -A 2 CE Ac TA ti LA ve NO PH N 10 -3 25 [...] 51 04 2 No TO 07 -2 AK 90 8- Lo OL 80 20 ng OL 12 13 er 0 TA Ac RT ti RA ve TE 50 MG TA B FU 51 04 0 No RO 07 -1 SE 90 1- Lo LA 07 20 ng DE 32 13 er 0 40 Ac ti MG ve TA BL ET AK 37 07 10 3 30 30 EA 23 BE Ac IL 00 -2 -[address] 36 SS ti OS 00 0- 1- 00 SI 97 ON ve EC 45 20 20 DE [address] OT 2 PH EP C AR HE 20 MA N .6 CY A MG OF TA CY BL NT ET HI AN A ME 16 07 10 3 12 30 EA 23 BE Ac TO 71 -2 -[address] 36 SS ti CL 40 0- 1- 00 SI 98 ON ve OP 06 20 20 0 DE RA [address] LA 6 PH EP DE AR HE MA N 10 CY A MG OF TA CY BL NT ET HI AN A ME 00 07 10 3 60 30 EA 23 BE Ac TO 09 -2 -[address] 36 SS ti AK 30 0- 1- 00 SI 99 ON ve OL 73 20 20 DE OL [address] 0 PH EP TA AR HE RT MA N RA CY A TE OF 50 CY MG NT HI TA AN B A LI 00 07 10 3 30 30 EA 23 BE Ac SI 17 -2 -[address] 37 SS ti NO 23 0- 00 SI 00 ON ve [place] 75 20 20 DE [place] [address] 0 PH EP 10 AR HE MA N MG CY A TA OF BL ET CY NT HI AN A CR 00 08 10 3 30 30 EA 23 MC Ac ES 31 -2 -[address] 76 KE ti TO 00 SI 62 LA ve R 75 20 20 DE E 10 19 11 11 JR 0 PH MG AR WI MA LL TA CY IA BL M ET OF F CY NT HI AN A AL 67 10 10 0 90 30 EA 24 MC Ac AK 25 -2 -[address] 61 KE ti AZ 30 SI 33 LA ve OL 90 20 20 DE E AM 21 11 11 JR 1 0 PH AR WI MG MA LL CY IA TA M BL OF F ET CY NT HI AN A TR 65 10 10 0 90 30 EA 24 MC Ac AM 16 -2 -[address] 61 KE ti AD 20 SI 34 LA ve OL 62 20 20 DE E 71 11 11 JR HC 1 PH L AR WI 50 MA LL CY IA MG M OF F TA BL CY ET NT HI AN A TR 00 08 10 4 15 4 EA 23 MC Ac IA 16 -2 -[address] 76 KE ti MC 80 2 SI 63 LA ve IN 00 20 20 DE E OL 31 11 11 JR ON 5 PH E AR [place] 0. MA LL 02 CY IA 5% M OF F CR EA CY M NT HI AN A 00 10 10 0 60 30 EA 24 MC Ac 59 -1 -[address] 44 KE ti 10 0 SI 97 LA ve 50 20 20 DE E 30 11 11 JR 1 PH AR [place] MA LL CY IA M OF F CY NT HI AN A LA 00 09 09 0 30 30 EA 24 MC Ac RT 09 -2 -[address] 23 KE ti AZ 37 3- 3 00 SI 05 LA ve AP 20 20 20 DE E IN 75 11 11 JR E 6 PH 30 AR [place] MA LL MG CY IA M TA OF F BL ET CY NT HI AN A AK 37 07 09 3 30 30 EA [...] 0 DE RA [address] LA 6 PH EP DE AR HE MA N 10 CY A MG OF TA CY BL NT ET HI AN A ME 00 07 09 3 60 30 EA 23 BE Ac TO 09 -2 -[address] 36 SS ti AK 30 0- 2- 00 SI 99 ON [...] 0- 2- 00 SI 00 ON ve AK 75 20 20 DE [place] [address] 0 PH EP 10 AR HE MA N MG CY A TA OF BL ET CY NT HI AN A CR 00 08 09 3 30 30 EA 23 MC Ac ES 31 -2 -[address] 76 KE ti TO 00 2- 2- 00 SI 62 LA ve R 75 20 20 DE E 10 19 11 11 JR 0 PH MG AR [place] MA LL TA CY IA BL M ET OF F CY NT HI AN A AL 67 09 09 0 90 30 EA 24 MC Ac AK 25 -2 -[address] 19 KE ti AZ 30 1- 1- 00 SI 16 LA ve OL 90 20 20 DE E AM 21 11 11 JR 1 0 PH AR WI MG MA LL CY IA TA M BL OF F ET CY NT HI AN A TR 65 09 09 0 90 30 EA 24 MC Ac AM 16 -2 -[address] 19 KE ti AD 20 1- 1- 00 SI 17 LA ve OL 62 20 20 DE E [...] 0 DE RA [address] LA 6 PH EP DE AR HE MA N 10 CY A MG OF TA CY BL NT ET HI AN A ME 00 07 08 3 60 30 EA 23 BE Ac TO 09 -2 -[address] 36 SS ti AK 30 0- 2- 00 SI 99 ON [...] 0- 2- 00 SI 00 ON ve AK 75 20 20 DE [place] [address] 0 PH EP 10 AR HE MA N MG CY A TA OF BL ET CY NT HI AN A TR 00 08 08 4 15 10 EA 23 MC Ac IA 16 -2 -[address] 76 KE ti MC 80 2- 2- 00 SI 63 LA ve IN 00 20 20 DE E OL 31 11 11 JR ON 5 PH E AR [place] 0. MA LL 02 CY IA 5% M OF F CR EA CY M NT HI AN A AL 67 08 08 0 90 30 EA 23 MC Ac AK 25 -2 -[address] 76 KE ti AZ 30 2- 2- 00 SI 64 LA ve OL 90 20 20 DE E AM 21 11 11 JR 1 0 PH AR WI MG MA LL CY IA TA M BL OF F ET CY NT HI AN A 00 08 08 0 60 30 EA 23 MC Ac 59 -1 -[address] 63 KE ti 10 1- 1- 00 SI 03 LA ve 50 20 20 DE E 30 11 11 JR 1 PH AR [place] MA LL CY IA M OF F CY NT HI AN A AL 67 07 07 0 90 30 EA 23 BE Ac AK 25 -2 -[address] 36 SS [...] ET OF CY NT HI AN A AK 37 07 07 3 30 30 EA [...] 0 DE RA [address] LA 6 PH EP DE AR HE MA N 10 CY A MG OF TA CY BL NT ET HI AN A ME 00 07 07 3 60 30 EA 23 BE Ac TO 09 -2 -[address] 36 SS ti AK 30 0- 0- 00 SI 99 ON [...] ti 10 1- 1- 00 SI 96 LA ve 50 20 20 DE E 30 11 11 JR 1 PH AR [place] MA LL CY IA M OF F CY NT HI AN A ME 16 03 06 2 12 30 EA 21 MC Ac TO 71 -2 -[address] 78 KE ti CL 40 1- 0- 00 SI 49 LA ve OP 06 20 20 0 DE E RA 20 11 11 JR LA 6 PH DE AR WI MA LL 10 CY IA M MG OF F TA CY BL NT ET HI AN A 64 04 06 2 30 30 EA 22 MC Ac 67 -2 -[address] 21 KE ti 90 1- 0- 00 SI 02 LA ve 92 20 20 DE E 90 11 11 JR 6 PH AR [place] MA LL CY IA M OF F CY NT HI AN A ME 00 04 06 2 60 30 EA 22 MC Ac TO 09 -2 -[address] 21 KE ti AK 30 1- 0- 00 SI 03 LA ve OL 73 20 20 DE E OL 31 11 11 JR 0 PH TA AR WI RT MA LL RA CY IA TE M OF F 50 CY MG NT HI TA AN B A AK 37 06 06 2 30 30 EA 23 MC Ac IL 00 -2 -[address] 01 KE ti OS 00 0- 0- 00 SI 17 LA ve EC 45 20 20 DE E 50 11 11 JR OT 2 PH C AR [place] 20 MA LL .6 CY IA M MG OF F TA CY BL NT ET HI AN A TR 65 06 06 0 90 30 EA 23 MC Ac AM 16 -2 -[address] 01 KE ti AD 20 0- 0- 00 SI 87 LA ve OL 62 20 20 DE E 71 11 11 JR HC 1 PH L AR [place] 50 MA LL CY IA MG M OF F TA BL CY ET NT HI AN A CR 00 06 06 0 30 30 EA 23 MC Ac ES 31 -2 -[address] 01 KE ti TO 00 0- 0- 00 SI 88 LA ve R 75 20 20 DE E 10 19 11 11 JR 0 PH MG AR WI MA LL TA CY IA BL M ET OF F CY NT HI AN A AL 67 06 06 0 90 30 EA 23 MC Ac AK 25 -2 -[address] 01 KE ti AZ 30 0- 0- 00 SI 89 LA ve OL 90 20 20 DE E [...] TO 00 1- 0- 00 SI 41 LA ve R 75 20 20 DE E 10 19 11 11 JR 0 PH MG AR WI MA LL TA CY IA BL M ET OF F CY NT HI AN A AK 37 03 05 2 30 30 EA 21 MC Ac IL 00 -2 -[address] 78 KE ti OS 00 1- 0- 00 SI 42 LA ve EC 45 20 20 DE E 50 11 11 JR OT 2 PH C AR [place] 20 MA LL .6 CY IA M MG OF F TA CY BL NT ET HI AN A ME 16 03 05 2 12 30 EA 21 MC Ac TO 71 -2 -[address] 78 KE ti CL 40 1- 0- 00 SI 49 LA ve OP 06 20 20 0 DE E RA 20 11 11 JR LA 6 PH DE AR WI MA LL 10 CY IA M MG OF F TA CY BL NT ET HI AN A 64 04 05 2 30 30 EA 22 MC Ac 67 -2 -[address] 21 KE ti 90 1- 0- 00 SI 02 LA ve 92 20 20 DE E 90 11 11 JR 6 PH AR [place] MA LL CY IA M OF F CY NT HI AN A ME 00 04 05 2 60 30 EA 22 MC Ac TO 09 -2 -[address] 21 KE ti AK 30 1- 0- 00 SI 03 LA ve OL 73 20 20 DE E [...] 0 90 30 EA 22 BE Ac AK 25 -2 -[address] 62 SS ti AZ 30 0- 0- 00 SI 51 ON ve OL 90 20 20 DE AM [address] 1 0 PH EP AR HE MG MA N CY A TA BL OF ET CY NT HI AN A TR 00 05 05 0 60 15 EA 22 MC Ac IA 16 -1 -[address] 56 KE ti MC 80 7 SI 04 LA ve IN 00 20 20 DE E OL 31 11 11 JR ON 5 PH E AR [place] 0. MA LL 02 CY IA 5% M OF F CR EA CY M NT HI AN A 00 05 05 0 60 30 EA 22 MC Ac 59 -0 -[address] 45 KE ti 10 SI 24 LA ve 50 20 20 DE E 30 11 11 JR 1 PH AR [place] MA LL CY IA M OF F CY NT HI AN A AL 67 03 04 1 90 30 EA 21 MC Ac AK 25 -2 -[address] 78 KE ti AZ 30 SI 39 LA ve OL 90 20 20 DE E AM 21 11 11 JR 1 0 PH AR WI MG MA LL CY IA TA M BL OF F ET CY NT HI AN A TR 65 03 04 1 90 30 EA 21 MC Ac AM 16 -2 -[address] 78 KE ti AD 20 SI 40 LA ve OL 62 20 20 DE E 71 11 11 JR HC 1 PH L AR [place] 50 MA LL CY IA MG M OF F TA BL CY ET NT HI AN A CR 00 03 04 2 30 30 EA 21 MC Ac ES 31 -2 -[address] 78 KE ti TO 00 SI 41 LA ve R 75 20 20 DE E 10 19 11 11 JR 0 PH MG AR WI MA LL TA CY IA BL M ET OF F CY NT HI AN A AK 37 03 04 2 30 30 EA 21 MC Ac IL 00 -2 -[address] 78 KE ti OS 00 SI 42 LA ve EC 45 20 20 DE E 50 11 11 JR OT 2 PH C AR WI 20 MA LL .6 CY IA M MG OF F TA CY BL NT ET HI AN A 64 04 04 2 30 30 EA 22 MC Ac 67 -2 -[address] 21 KE ti 90 SI 02 LA ve 92 20 20 DE E 90 11 11 JR 6 PH AR [place] MA LL CY IA M OF F CY NT HI AN A ME 00 04 04 2 60 30 EA 22 MC Ac TO 09 -2 -[address] 21 KE ti AK 30 SI 03 LA ve OL 73 20 20 DE E OL 31 11 11 JR 0 PH TA AR WI RT MA LL RA CY IA TE M OF F 50 CY MG NT HI TA AN B A 00 04 04 0 60 30 EA 22 MC Ac 59 -0 -[address] 01 KE ti 10 SI 02 LA ve 50 20 20 DE E 30 11 11 JR 1 PH AR [place] MA LL CY IA M OF F CY NT HI AN A ME 00 11 03 3 60 30 EA 20 BE Ac TO 09 -1 -[address] 06 SS ti AK 30 SI 82 ON ve OL 73 [...] 03 03 1 90 30 EA 21 Ac AK 25 -2 -[address] 78 KE ti AZ 30 SI 39 LA ve OL 90 20 20 DE E AM 21 11 11 JR 1 0 PH AR WI MG MA LL CY IA TA M BL OF F ET CY NT HI AN A TR 65 03 03 1 90 30 EA 21 Ac AM 16 -2 -[address] 78 KE ti AD 20 SI 40 LA ve OL 62 20 20 DE E 71 11 11 JR HC 1 PH L AR WI 50 MA LL CY IA MG M OF F TA BL CY ET NT HI AN A CR 00 03 03 2 30 30 EA 21 Ac ES 31 -2 -[address] 78 KE ti TO 00 SI 41 LA ve R 75 20 20 DE E 10 19 11 11 JR 0 PH MG AR WI MA LL TA CY IA BL M ET OF F CY NT HI AN A AK 37 03 03 2 30 30 EA 21 MC Ac IL 00 -2 -[address] 78 KE ti OS 00 SI 42 LA ve EC 45 20 20 DE E 50 11 11 JR OT 2 PH C AR [place] 20 MA LL .6 CY IA M MG OF F TA CY BL NT ET HI AN A ME 16 03 03 2 12 30 EA 21 MC Ac TO 71 -2 -[address] 78 KE ti CL 40 SI 49 LA ve OP 06 20 20 0 DE E RA 20 11 11 JR LA 6 PH DE AR WI MA LL 10 CY IA M MG OF F TA CY BL NT ET HI AN A 00 03 03 0 60 30 EA 21 BE Ac 59 -0 -[address] 54 SS ti 10 4 4 SI 16 ON ve 50 20 [...] ET OF CY NT HI AN A AK 37 11 02 3 30 30 EA [...] .0 ST 23 AM ti IX 31 2 SI 21 ve 17 20 20 DE MO 75 10 10 11 TORRES 6 PH MM MG AR ED MA N TA CY BL ET OF CY NT HI AN A TR 65 01 02 1 90 30 EA 20 MC Ac AM 16 -2 -[address] 90 KE ti AD 20 SI 01 LA ve OL 62 20 20 DE E 71 11 11 JR HC 1 PH L AR [place] 50 MA LL CY IA MG M OF F TA BL CY ET NT HI AN A AL 00 01 02 1 90 30 EA 20 MC Ac AK 78 -2 -[address] 90 KE ti AZ 11 SI 02 LA ve OL 07 20 20 DE E AM 90 11 11 JR 1 1 PH AR WI MG MA LL CY IA TA M BL OF F ET CY NT HI AN A ME 00 11 02 3 60 30 EA 20 BE Ac TO 09 -1 -[address] 06 SS ti AK 30 9- 5- 00 SI 82 ON [...] MC 80 5- 5- 00 SI 38 LA ve IN 00 20 20 DE E [...] AD 20 1- 1- 00 SI 01 LA ve OL 62 20 20 DE E 71 11 11 JR HC 1 PH L AR [place] 50 MA LL CY IA MG M OF F TA BL CY ET NT HI AN A AL 00 01 01 1 90 30 EA 20 MC Ac AK 78 -2 -[address] 90 KE ti AZ 11 1- - SI 02 LA ve OL 07 20 20 DE E [...] ET OF CY NT HI AN A AK 37 11 01 3 30 30 EA [...] 9- 0- 00 SI 85 ON ve AK 75 20 20 DE [place] [address] 0 PH EP 10 AR HE MA N MG CY A TA OF BL ET CY NT HI AN A ME 00 11 01 3 60 30 EA 20 BE Ac TO 09 -1 -[address] 06 SS ti AK 30 9- 3- 00 SI 82 ON [...] A OF CY NT HI AN A AK 37 11 12 3 30 30 EA 20 BE Ac IL 00 -1 -[address] 06 SS ti OS 00 9- 1- 00 SI 83 ON ve EC 45 20 20 DE [address] OT 2 PH EP C AR HE 20 MA N .6 CY A MG OF TA CY BL NT ET HI AN A CR 00 11 12 [...] 9- 0- 00 SI 85 ON ve [place] 75 20 20 DE [place] [address] 0 PH EP 10 AR HE MA N MG CY A TA OF BL ET CY NT HI AN A AL 00 12 12 0 90 30 EA 20 MC Ac AK 78 -2 -[address] 47 KE ti AZ 11 0- 0- 00 SI 79 LA ve OL 07 20 20 DE E AM 90 10 10 JR 1 1 PH AR WI MG MA LL CY IA TA M BL OF F ET CY NT HI AN A TR 65 12 12 0 90 30 EA 20 MC Ac AM 16 -2 -[address] 47 KE ti AD 20 0- 0- 00 SI 80 LA ve OL 62 20 20 DE E 71 10 10 JR HC 1 PH L AR WI 50 MA LL CY IA MG M OF F TA BL CY ET NT HI AN A 00 12 12 [...] MC 80 3- 3- 00 SI 36 LA ve IN 00 20 20 DE E [...] .0 ST 06 SS ti AD 20 9- 9- SI 80 ON ve OL 62 20 20 DE [address] HC 1 PH EP L AR HE 50 MA N CY A MG OF TA BL CY ET NT HI AN A AL 00 11 11 0 90 30 EA 20 BE Ac AK 78 -1 -[address] 06 SS ti AZ 11 9- 9- 00 SI 81 ON ve OL 07 20 20 DE AM [address] 1 1 PH EP AR HE MG MA N CY A TA BL OF ET CY NT HI AN A ME 00 11 11 3 60 30 EA 20 BE Ac TO 09 -1 -[address] 06 SS ti AK 30 9- 9- 00 SI 82 ON ve OL 73 20 20 DE OL [address] 0 PH EP TA AR HE RT MA N RA CY A TE OF 50 CY MG NT HI TA AN B A AK 37 11 11 3 30 30 EA [...] NO 23 9 SI 85 ON ve AK 75 20 20 DE IL 96 10 [...] 0 DE RA [address] LA 6 PH EP DE AR HE MA N 10 CY A MG OF TA CY BL NT ET HI AN A AK 37 08 10 2 30 30 EA [...] -2 -[address] 79 SS ti AK 30 0- 8- 00 SI 03 ON ve OL 73 20 20 DE OL [address] 0 PH EP TA AR HE RT MA N RA CY A TE OF 50 CY MG NT HI TA AN B A AL 00 08 10 2 90 30 EA 18 BE Ac AK 78 -2 -[address] 79 SS [...] 0 DE RA [address] LA 6 PH EP DE AR HE MA N 10 CY A MG OF TA CY BL NT ET HI AN A LI 00 08 10 2 30 30 EA 18 BE Ac SI 17 -2 -[address] 79 SS ti NO 23 0- 8- 00 SI 09 ON ve AK 75 20 20 DE IL 96 10 [...] MC 80 7- 7- 00 SI 95 LA ve IN 00 20 20 DE E [...] A OF CY NT HI AN A 60 09 09 [...] BL CY ET NT HI AN A AK 37 08 09 2 30 30 EA [...] -2 -[address] 79 SS ti AK 30 0- 7- 00 SI 03 ON ve OL 73 20 20 DE OL [address] 0 PH EP TA AR HE RT MA N RA CY A TE OF 50 CY MG NT HI TA AN B A AL 00 08 09 2 90 30 EA 18 BE Ac AK 78 -2 -[address] 79 SS [...] 0- 7- 00 SI 09 ON ve [place] 75 20 20 DE [place] [address] 0 PH EP 10 AR HE MA N MG CY A TA OF BL ET CY NT HI AN A AK 37 08 08 2 30 30 EA [...] -2 -[address] 79 SS ti AK 30 0- 0- 00 SI 03 ON ve OL 73 20 20 DE OL [address] 0 PH EP TA AR HE RT MA N RA CY A TE OF 50 CY MG NT HI TA AN B A AL 00 08 08 2 90 30 EA 18 BE Ac AK 78 -2 -[address] 79 SS [...] 0 DE RA [address] LA 6 PH EP DE AR HE MA N 10 CY A MG OF TA CY BL NT ET HI AN A LI 00 08 08 2 30 30 EA 18 BE Ac SI 17 -2 -[address] 79 SS ti NO 23 0- 0- 00 SI 09 ON ve AK 75 20 20 DE IL 96 10 [...] MC 80 9- 0- 00 SI 54 LA ve IN 00 20 20 DE E OL 31 10 10 JR ON 5 PH E AR [place] 0. MA LL 02 CY IA 5% M OF F CR EA CY M NT HI AN A AL 00 05 07 2 90 30 EA 17 BE Ac AK 78 -1 -[address] 66 SS ti AZ 11 9- 9- 00 SI 19 ON ve OL 07 [...] -1 -[address] 66 SS ti AK 30 9- 9- 00 SI 22 ON ve OL 73 20 20 DE OL [address] 0 PH EP TA AR HE RT MA N RA CY A TE OF 50 CY MG NT HI TA AN B A AK 37 05 07 2 30 30 EA [...] 06 KE ti TO 00 SI 29 LA ve R 75 20 20 DE E 10 19 10 10 JR 0 PH MG AR WI MA LL TA CY IA BL M ET OF F CY NT HI AN A LI 00 06 07 2 30 30 EA 18 MC Ac SI 17 -2 -[address] 06 KE ti NO 23 SI 30 LA ve AK 75 20 20 DE E IL 96 10 10 JR 0 PH 10 AR [place] MA LL MG CY IA M TA OF F BL ET CY NT HI AN A CR 00 06 06 2 30 30 EA 18 MC Ac ES 31 -2 -[address] 06 KE ti TO SI 29 LA ve R 75 20 20 DE E 10 19 10 10 JR 0 PH MG AR WI MA LL TA CY IA BL M ET OF F CY NT HI AN A LI 00 06 06 2 30 30 EA 18 MC Ac SI 17 -2 -[address] 06 KE ti NO 23 SI 30 LA ve AK 75 20 20 DE E IL 96 10 10 JR 0 PH 10 AR [place] MA LL MG CY IA M TA OF F BL ET CY NT HI AN A AL 00 05 06 2 90 30 EA 17 BE Ac AK 78 -1 -[address] 66 SS [...] -1 -[address] 66 SS ti AK 30 SI 22 ON ve OL 73 20 20 DE OL [address] 0 PH EP TA AR HE RT MA N RA CY A TE OF 50 CY MG NT HI TA AN B A AK 37 05 06 2 30 30 EA 17 BE Ac IL 00 -1 -[address] 66 SS ti OS 00 SI 23 ON ve EC 45 20 20 DE [address] OT 2 PH EP C AR HE 20 MA N .6 CY A MG OF TA CY BL NT ET HI AN A LI 00 02 05 3 30 30 EA 16 MC Ac SI 17 -1 -[address] 43 KE ti NO 23 SI 61 LA ve AK 75 20 20 DE E IL 96 10 10 JR 0 PH 10 AR [place] MA LL MG CY IA M TA OF F BL ET CY NT HI AN A CR 00 02 05 3 30 30 EA 16 MC Ac ES 31 -1 -[address] 43 KE ti TO 00 SI 62 LA ve R 75 20 20 DE E [...] .0 ST 66 SS ti AD 20 SI 21 ON ve OL 62 20 20 DE [address] HC 1 PH EP L AR HE 50 MA N CY A MG OF TA BL CY ET NT HI AN A ME 00 05 05 2 60 30 EA 17 BE Ac TO 09 -1 -[address] 66 SS ti AK 30 SI 22 ON ve OL 73 20 20 DE OL [address] 0 PH EP TA AR HE RT MA N RA CY A TE OF 50 CY MG NT HI TA AN B A AK 37 05 05 2 30 30 EA 17 BE Ac IL 00 -1 -[address] 66 SS ti OS 00 9- 9 00 SI 23 ON ve EC 45 20 20 DE [address] OT 2 PH EP C AR HE 20 MA N .6 CY A MG OF TA CY BL NT ET HI AN A ME 16 05 05 2 12 30 EA 17 BE Ac TO 71 -1 -[address] 66 SS ti CL 40 9- 9 00 SI 24 ON ve OP 06 20 20 0 DE RA [address] LA 6 PH EP DE AR HE MA N 10 CY A MG OF TA CY BL NT ET HI AN A AL 00 05 05 2 90 30 EA 17 BE Ac AK 78 -1 -[address] 66 SS ti AZ 11 9- SI 19 ON ve OL 07 20 20 DE AM [address] 1 1 PH EP AR HE MG MA N CY A TA BL OF ET CY NT HI AN A TR 65 02 04 2 90 30 EA 16 MC Ac AM 16 -2 -[address] 45 KE ti AD 20 0- 9 00 SI 61 LA ve OL 62 20 20 DE E 71 10 10 JR HC 1 PH L AR WI 50 MA LL CY IA MG M OF F TA BL CY ET NT HI AN A TR 00 04 04 1 60 15 EA 17 MC Ac IA 16 -1 -[address] 25 KE ti MC 80 9 SI 54 LA ve IN 00 20 20 DE E OL 31 10 10 JR ON 5 PH E AR [place] 0. MA LL 02 CY IA 5% M OF F CR EA CY M NT HI AN A AL 00 02 04 2 90 30 EA 16 MC Ac AK 78 -2 -[address] 45 KE ti AZ 11 0- 9 SI 59 LA ve OL 07 20 20 DE E AM 90 10 10 JR 1 1 PH AR WI MG MA LL CY IA TA M BL OF F ET CY NT HI AN A 00 02 04 2 60 30 EA 16 MC Ac 59 -2 -[address] 45 KE ti 10 0- 9 00 SI 60 LA ve 50 20 20 DE E 30 10 10 JR 1 PH AR WI MA LL CY IA M OF F CY NT HI AN A LI 00 02 04 3 30 30 EA 16 MC Ac SI 17 -1 -[address] 43 KE ti NO 23 SI 61 LA ve [place] 75 20 20 DE E IL 96 10 10 JR 0 PH 10 AR WI MA LL MG CY IA M TA OF F BL ET CY NT HI AN A CR 00 02 04 3 30 30 EA 16 MC Ac ES 31 -1 -[address] 43 KE ti TO 00 SI 62 LA ve R 75 20 20 DE E 10 19 10 10 JR 0 PH MG AR [place] MA LL TA CY IA BL M ET OF F CY NT HI AN A ME 16 10 04 3 12 30 EA 14 BE Ac TO 71 -1 -[address] 72 SS ti CL 40 SI 19 ON ve OP 06 20 20 0 DE RA [address] LA 6 PH EP DE AR HE MA N 10 CY A MG OF TA CY BL NT ET HI AN A AK 37 01 04 3 30 30 EA 16 MC Ac IL 00 -1 -[address] 00 KE ti OS 00 SI 11 LA ve EC 45 20 20 DE E 50 10 10 JR OT 2 PH C AR WI 20 MA LL .6 CY IA M MG OF F TA CY BL NT ET HI AN A ME 00 01 04 3 60 30 EA 16 MC Ac TO -[address] 00 KE ti AK 30 SI 13 LA ve OL 73 20 20 DE E OL 31 10 10 JR 0 PH TA AR WI RT MA LL RA CY IA TE M OF F 50 CY MG NT HI TA AN B A 00 02 03 2 60 30 EA 16 MC Ac 59 -2 -[address] 45 KE ti 10 0 SI 60 LA ve 50 20 20 DE E 30 10 10 JR 1 PH AR [place] MA LL CY IA M OF F CY NT HI AN A AL 00 02 03 2 90 30 EA 16 MC Ac AK 78 -2 -[address] 45 KE ti AZ 11 SI 59 LA ve OL 07 20 20 DE E AM 90 10 10 JR 1 1 PH AR WI MG MA LL CY IA TA M BL OF F ET CY NT HI AN A TR 65 02 03 2 90 30 EA 16 MC Ac AM 16 -2 -[address] 45 KE ti AD 20 0- SI 61 LA ve OL 62 20 20 DE E 71 10 10 JR HC 1 PH L AR WI 50 MA LL CY IA MG M OF F TA BL CY ET NT HI AN A ME 00 01 03 3 60 30 EA 16 MC Ac TO 09 -[address] 00 KE ti AK 30 8- 9- 00 SI 13 LA ve OL 73 20 20 DE E OL 31 10 10 JR 0 PH TA AR WI RT MA LL RA CY IA TE M OF F 50 CY MG NT HI TA AN B A LI 00 02 03 3 30 30 EA 16 MC Ac SI 17 -1 -[address] 43 KE ti NO 23 SI 61 LA ve AK 75 20 20 DE E IL 96 10 10 JR 0 PH 10 AR WI MA LL MG CY IA M TA OF F BL ET CY NT HI AN A CR 00 02 03 3 30 30 EA 16 MC Ac ES 31 -1 -[address] 43 KE ti TO 00 SI 62 LA ve R 75 20 20 DE E 10 19 10 10 JR 0 PH MG AR [place] MA LL TA CY IA BL M ET OF F CY NT HI AN A ME 16 10 03 2 12 30 EA 14 BE Ac TO 71 -1 -[address] 72 SS ti CL 40 6 9 00 SI 19 ON ve OP 06 20 20 0 DE RA [address] LA 6 PH EP DE AR HE MA N 10 CY A MG OF TA CY BL NT ET HI AN A AK 37 01 03 3 30 30 EA 16 MC Ac IL 00 -1 -[address] 00 KE ti OS 00 SI 11 LA ve EC 45 20 20 DE E 50 10 10 JR OT 2 PH C AR WI 20 MA LL .6 CY IA M MG OF F TA CY BL NT ET HI AN A ME 16 10 02 01 12 30 EA 14 BE Ac TO 71 -1 -[address] 72 SS ti CL 40 6 SI 19 ON ve OP 06 20 20 0 DE RA [address] LA 6 PH EP DE AR HE MA N 10 CY A MG OF CY TA NT BL HI ET AN A AK 37 01 02 01 30 30 EA 16 MC Ac IL 00 -1 -[address] 00 KE ti OS 00 8 SI 11 LA ve EC 45 20 20 DE E 50 10 10 JR OT 2 PH C AR WI 20 MA LL .6 CY IA M MG OF F CY TA NT BL HI ET AN A ME 00 01 02 01 60 30 EA 16 MC Ac TO 09 -1 -[address] 00 KE ti AK 30 8 SI 13 LA ve OL 73 20 20 DE E OL 31 10 10 JR 0 PH TA AR WI RT MA LL RA CY IA TE M OF F 50 CY NT MG HI AN TA A B TR 00 10 02 02 30 10 EA 14 MC Ac IA 16 -1 -[address] 73 KE ti MC 80 SI 69 LA ve IN 00 20 20 DE E OL 31 09 10 JR ON 5 PH E AR WI 0. MA LL 02 CY IA 5% M OF F CR CY EA NT M HI AN A LI 00 02 02 00 30 30 EA 16 BE Ac SI 17 -1 -[address] 43 SS ti NO 23 SI 61 ON ve [place] 75 20 20 DE [place] [address] 0 PH EP 10 AR HE MA N MG CY A TA OF BL CY ET NT HI AN A CR 00 02 00 30 30 EA 16 MC Ac ES 31 -1 -[address] 43 KE ti TO 00 SI 62 LA ve R 75 20 20 DE E 10 19 10 10 JR 0 PH MG AR WI MA LL TA CY IA BL M ET OF F CY NT HI AN A TR 65 01 00 90 30 EA 16 MC Ac AM 16 -1 -[address] 00 KE ti AD 20 SI 09 LA ve OL 62 20 20 DE E 71 10 10 JR HC 1 PH L AR WI 50 MA LL CY IA MG M OF F TA CY BL NT ET HI AN A CR 00 10 02 30 30 EA 14 BE Ac ES 31 -1 -[address] 73 SS ti TO 00 SI 70 ON ve R 75 20 20 DE [address] 0 PH EP MG AR HE MA N TA CY A BL ET OF CY NT HI AN A AL 00 11 09 99 90 30 EA 16 MC Ac AK 78 -1 -[address] 00 KE ti AZ 11 SI 12 LA ve OL 07 20 20 DE E AM 90 10 10 JR 1 1 PH AR WI MG MA LL CY IA TA M BL OF F ET CY NT HI AN A 00 11 09 00 60 30 EA 16 MC Ac 59 -1 -[address] 00 KE ti 10 SI 10 LA ve 50 20 20 DE E 30 10 10 JR 1 PH AR WI MA LL CY IA M OF F CY NT HI AN A AK 37 01 01 00 30 30 EA 16 MC Ac IL 00 -1 -[address] 00 KE ti OS 00 SI 11 LA ve EC 45 20 20 DE E 50 10 10 JR OT 2 PH C AR WI 20 MA LL .6 CY IA M MG OF F CY TA NT BL HI ET AN A ME 00 11 09 00 60 30 EA 16 MC Ac TO 09 -1 -[address] 00 KE ti AK 30 SI 13 LA ve OL 73 20 20 DE E OL 31 10 10 JR 0 PH TA AR WI RT MA LL RA CY IA TE M OF F 50 CY NT MG HI AN TA A B LI 00 10 01 02 30 30 EA 14 BE Ac SI 17 -1 -[address] 73 SS ti NO 23 SI 72 ON ve [place] 75 20 20 [place] [address] 0 PH EP 10 AR HE MA N MG CY A TA OF BL CY ET NT HI AN A AK 37 10 12 02 30 30 EA 14 MC Ac IL 00 -1 -[address] 73 KE ti OS 00 SI 64 LA ve EC 45 20 20 DE E 50 09 09 JR OT 2 PH C AR WI 20 MA LL .6 CY IA M MG OF F CY TA NT BL HI ET AN A TR 65 10 12 02 90 30 EA 14 MC Ac AM 16 -1 -[address] 73 KE ti AD 20 SI 66 LA ve OL 62 20 20 DE E 71 09 09 JR HC 1 PH L AR WI 50 MA LL CY IA MG M OF F TA CY BL NT ET HI AN A ME 00 10 12 00 60 30 EA 14 BE Ac TO 09 -1 -[address] 73 SS ti AK 30 SI 71 ON ve OL 73 20 20 DE OL [address] 0 PH EP TA AR HE RT MA N RA CY A TE OF 50 CY NT MG HI AN TA A B 00 12 12 00 60 30 EA 15 MC Ac 59 -1 -[address] 61 KE ti 10 SI 52 LA ve 50 20 20 DE E 30 [...] ST 73 SS ti NO 23 7- 1- 00 SI 72 ON ve [place] 75 20 20 [place] [address] 0 PH EP 10 AR HE MA N MG CY A TA OF BL CY ET NT HI AN A AL 00 10 12 02 90 30 EA 14 MC Ac AK 78 -1 -[address] 73 KE ti AZ 11 7- 1- 00 SI 67 LA ve OL 07 20 20 DE E AM 90 09 09 JR 1 1 PH AR WI MG MA LL CY IA TA M BL OF F ET CY NT HI AN A TR 00 10 12 01 30 10 EA 14 MC Ac IA 16 -1 -[address] 73 KE ti MC 80 7- 7- 00 SI 69 LA ve IN 00 20 20 DE E OL 31 09 09 JR ON 5 PH E AR WI 0. MA LL 02 CY IA 5% M OF F CR CY EA NT M HI AN A LI 00 10 12 00 30 30 EA 14 BE Ac SI 17 -1 -[address] 73 SS ti NO 23 7- 3- 00 SI 72 ON ve [place] 75 20 20 DE [place] [address] 0 PH EP 10 AR HE MA N MG CY A TA OF BL CY ET NT HI AN A AL 00 10 12 01 90 30 EA 14 MC Ac AK 78 -1 -[address] 73 KE ti AZ 11 7- 3- 00 SI 67 LA ve OL 07 20 20 DE E [...] CY NT HI AN A 00 11 12 00 60 30 EA 15 MC Ac 59 -1 -[address] 17 KE ti 10 7- 3- 00 SI 53 LA ve 50 20 20 DE E 30 09 09 JR 1 PH AR WI MA LL CY IA M OF F CY NT HI AN A AK 37 10 12 01 30 30 EA 14 MC Ac IL 00 -1 -[address] 73 KE ti OS 00 7- 3- 00 SI 64 LA ve EC 45 20 20 DE E 50 09 09 JR OT 2 PH C AR WI 20 MA LL .6 CY IA M MG OF F CY TA NT BL HI ET AN A TR 65 10 12 01 90 30 EA 14 MC Ac AM 16 -1 -[address] 73 KE ti AD 20 7- 3- 00 SI 66 LA ve OL 62 20 20 DE E 71 09 09 JR HC 1 PH L AR WI 50 MA LL CY IA MG M OF F TA CY BL NT ET HI AN A TR 65 10 11 00 90 30 EA 14 MC Ac AM 16 -1 -[address] 73 KE ti AD 20 7- 5- 00 SI 66 LA ve OL 62 20 20 DE E 71 09 09 JR HC 1 PH L AR WI 50 MA LL CY IA MG M OF F TA CY BL NT ET HI AN A AL 00 10 11 00 90 30 EA 14 MC Ac AK 78 -1 -[address] 73 KE ti AZ 11 7- 5- 00 SI 67 LA ve OL 07 20 20 DE E AM 90 09 09 JR 1 1 PH AR WI MG MA LL CY IA TA M BL OF F ET CY NT HI AN A TR 00 10 11 00 30 10 EA 14 MC Ac IA 16 -1 -[address] 73 KE ti MC 80 7- 5- 00 SI 69 LA ve IN 00 20 20 DE E OL 31 09 09 JR ON 5 PH E AR WI 0. MA LL 02 CY IA 5% M OF F CR CY EA NT M HI AN A AK 37 10 11 00 30 30 EA 14 Ac IL 00 -1 -[address] 73 KE ti OS 00 7- 5- 00 SI 64 LA ve EC 45 20 20 DE E 50 09 09 JR OT 2 PH C AR WI 20 MA LL .6 CY IA M MG OF F CY TA NT BL HI ET AN A DO 53 10 11 00 20 10 EA 14 Ac XY 48 -1 -[address] 73 KE ti CY 90 7- 5- 00 SI 75 LA ve CL 11 20 20 DE E IN 90 09 09 JR E 5 PH HY AR WI CL MA LL AT CY IA E M 10 OF F 0 CY MG NT HI CA AN P A 00 10 11 00 60 30 EA 14 MC Ac 59 -1 -[address] 73 KE ti 10 7- 5- 00 SI 65 LA ve 50 20 20 DE E 30 09 09 JR 1 PH AR WI MA LL CY IA M OF F CY NT HI AN A ME 16 10 10 00 12 30 EA 14 BE Ac TO 71 -1 -[address] 72 SS ti CL 40 6- 2- 00 SI 19 ON ve OP 06 20 20 0 DE RA [address] LA 6 PH EP DE AR HE MA N 10 CY A MG OF CY TA NT BL HI ET AN A LI 00 05 10 05 30 30 EA 12 BE Ac SI 17 -1 -[address] 81 SS ti NO 23 9- 2- 00 SI 07 ON ve AK 75 20 20 DE IL 96 09 [...] -1 -[address] 81 SS ti AK 30 9- 2- 00 SI 04 ON ve OL 73 20 20 DE OL [address] 0 PH EP TA AR HE RT MA N RA CY A TE OF 50 CY NT MG HI AN TA A B ME 00 05 09 03 60 30 EA 12 BE Ac TO 09 -1 -[address] 81 SS ti AK 30 9- 4- 00 SI 04 ON ve OL 73 20 20 DE OL [address] 0 PH EP TA AR HE RT MA N RA CY A TE OF 50 CY NT MG HI AN TA A B 00 09 09 00 60 30 EA 14 MC Ac 59 -1 -[address] 29 KE ti 10 7- 4- 00 SI 72 LA ve 50 20 20 DE E 30 09 09 JR 1 PH AR WI MA LL CY IA M OF F CY NT HI AN A TR 65 09 09 00 90 30 EA 14 MC Ac AM 16 -1 -[address] 29 KE ti AD 20 7- 4- 00 SI 73 LA ve OL 62 20 20 DE E 71 09 09 JR HC 1 PH L AR WI 50 MA LL CY IA MG M OF F TA CY BL NT ET HI AN A ME 16 05 09 03 12 30 EA 12 BE Ac TO 71 -1 -[address] 81 SS ti CL 40 9- 4- 00 SI 06 ON ve OP 06 20 20 0 DE RA [address] LA 6 PH EP DE AR HE MA N 10 CY A MG OF CY TA NT BL HI ET AN A TR 00 09 09 00 15 5 EA 14 MC Ac IA 16 -1 -[address] 29 KE ti MC 80 7- 4- 00 SI 74 LA ve IN 00 20 20 DE E OL 31 09 09 JR ON 5 PH E AR WI 0. MA LL 02 CY IA 5% M OF F CR CY EA NT M HI AN A CR 00 08 09 01 30 30 EA 13 BE Ac ES 31 -1 -[address] 86 SS ti TO 00 7 4 SI 91 ON ve R 75 20 20 DE [address] 0 PH EP MG AR HE MA N TA CY A BL ET OF CY NT HI AN A LI 00 05 09 04 30 30 EA 12 BE Ac SI 17 -1 -[address] 81 SS ti NO 23 9 4- 00 SI 07 ON ve [place] 75 20 20 DE [place] [address] 0 PH EP 10 AR HE MA N MG CY A TA OF BL CY ET NT HI AN A AL 00 09 09 00 90 30 EA 14 MC Ac AK 78 -1 -[address] 29 KE ti AZ 11 7 4 SI 71 LA ve OL 07 20 20 DE E AM 90 09 09 JR 1 1 PH AR WI MG MA LL CY IA TA M BL OF F ET CY NT HI AN A AK 37 06 09 03 30 30 EA 13 MC Ac IL 00 -1 -[address] 20 KE ti OS 00 9 4 SI 40 LA ve EC 45 20 20 DE E 50 09 09 JR OT 2 PH C AR WI 20 MA LL .6 CY IA M MG OF F CY TA NT BL HI ET AN A ME 16 05 08 02 12 30 EA 12 BE Ac TO 71 -1 -[address] 81 SS ti CL 40 9- 7- SI 06 ON ve OP 06 20 20 0 DE RA [address] LA 6 PH EP DE AR HE MA N 10 CY A MG OF CY TA NT BL HI ET AN A AK 37 06 08 02 30 30 EA 13 MC Ac IL 00 -1 -[address] 20 KE ti OS 00 9- 7 SI 40 LA ve EC 45 20 20 DE E [...] -1 -[address] 81 SS ti AK 30 9- 7- 00 SI 04 ON ve OL 73 20 20 DE OL [address] 0 PH EP TA AR HE RT MA N RA CY A TE OF 50 CY NT MG HI AN TA A B CR 00 08 08 00 30 30 EA 13 BE Ac ES 31 -1 -[address] 86 SS ti TO 00 7 7- SI 91 ON ve R 75 20 20 DE [address] 0 PH EP MG AR HE MA N TA CY A BL ET OF CY NT HI AN A LI 00 05 08 03 30 30 EA 12 BE Ac SI 17 -1 -[address] 81 SS ti NO 23 9 7- SI 07 ON ve [place] 75 20 20 DE [place] [address] 0 PH EP 10 AR HE MA N MG CY A TA OF BL CY ET NT HI AN A AL 00 08 08 00 90 30 EA 13 MC Ac AK 78 -1 -[address] 86 KE ti AZ 11 7- 7- SI 90 LA ve OL 07 20 20 DE E AM 90 09 09 JR 1 1 PH AR WI MG MA LL CY IA TA M BL OF F ET CY NT HI AN A 00 08 08 00 60 30 EA 13 MC Ac 59 -1 -[address] 86 KE ti 10 7- 7- SI 89 LA ve 50 20 20 DE E 30 [...] NT M HI AN A AL 00 07 07 00 90 30 EA 13 MC Ac AK 78 -1 -[address] 53 KE ti AZ 11 7- 0- 00 SI 33 LA ve OL 07 20 20 DE E AM 90 09 09 JR 1 1 PH AR WI MG MA LL CY IA TA M BL OF F ET CY NT HI AN A 00 07 07 00 60 30 EA 13 MC Ac 59 -1 -[address] 53 KE ti 10 7- 0- 00 SI 34 LA ve 50 20 20 DE E 30 [...] -1 -[address] 81 SS ti AK 30 9- 0- 00 SI 04 ON ve OL 73 20 20 DE OL [address] 0 PH EP TA AR HE RT MA N RA CY A TE OF 50 CY NT MG HI AN TA A B AK 37 06 07 01 30 30 EA 13 MC Ac IL 00 -1 -[address] 20 KE ti OS 00 9- 0- 00 SI 40 LA ve EC 45 20 20 DE E 50 09 09 JR OT 2 PH C AR WI 20 MA LL .6 CY IA M MG OF F CY TA NT BL HI ET AN A TR 65 07 07 00 90 30 EA 13 MC Ac AM 16 -1 -[address] 53 KE ti AD 20 7- 0- 00 SI 35 LA ve OL 62 20 20 DE E 71 09 09 JR HC 1 PH L AR WI 50 MA LL CY IA MG M OF F TA CY BL NT ET HI AN A LI 00 05 07 02 30 30 EA 12 BE Ac SI 17 -1 -[address] 81 SS ti NO 23 9- 0- 00 SI 07 ON ve [place] 75 20 20 DE [place] [address] 0 PH EP 10 AR HE MA N MG CY A TA OF BL CY ET NT HI AN A ME 16 05 07 01 12 30 EA 12 BE Ac TO 71 -1 -[address] 81 SS ti CL 40 9- 0- 00 SI 06 ON ve OP 06 20 20 0 DE RA [address] LA 6 PH EP DE AR HE MA [...] AD 50 9- 2- 00 SI 39 LA ve OL 17 20 20 DE E 10 09 09 JR HC 8 PH L AR WI 50 MA LL CY IA MG M OF F TA CY BL NT ET HI AN A 00 06 07 00 60 30 EA 13 MC Ac 59 -1 -[address] 20 KE ti 10 9- 2- 00 SI 38 LA ve 50 20 20 DE E 30 09 09 JR 1 PH AR WI MA LL CY IA M OF F CY NT HI AN A LI 00 05 07 01 30 30 EA 12 BE Ac SI 17 -1 -[address] 81 SS ti NO 23 9- 2- 00 SI 07 ON ve [place] 75 20 20 DE [place] [address] 0 PH EP 10 AR HE MA N MG CY A TA OF BL CY ET NT HI AN A ME 00 05 07 00 60 30 EA 12 BE Ac TO 09 -1 -[address] 81 SS ti AK 30 9- 2- 00 SI 04 ON ve OL 73 20 20 DE OL [address] 0 PH EP TA AR HE RT MA N RA CY A TE OF 50 CY NT MG HI AN TA A B AK 37 06 07 00 30 30 EA 13 MC Ac IL 00 -1 -[address] 20 KE ti OS 00 9- 2- 00 SI 40 LA ve EC 45 20 20 DE E 50 09 09 JR OT 2 PH C AR WI 20 MA LL .6 CY IA M MG OF F CY TA NT BL HI ET AN A AL 00 06 07 00 90 30 EA 13 MC Ac AK 78 -1 -[address] 20 KE ti AZ 11 9- 2- 00 SI 37 LA ve OL 07 20 20 DE E AM 90 09 09 JR 1 1 PH AR WI MG MA LL CY IA TA M BL OF F ET CY NT HI AN A DI 00 06 06 00 60 30 EA 13 MA Ac CL 78 -0 -[address] 05 IR ti OF 11 8- 8- 00 SI 09 ve EN 78 20 20 DE SC AC 90 09 09 OT 1 PH T SO AR D D MA EC CY 75 OF CY MG NT HI TA AN B A AL 00 05 06 00 90 30 EA 12 MC Ac AK 78 -1 -[address] 80 KE ti AZ 11 9- 4- 00 SI 89 LA ve OL 07 20 20 DE E AM 90 09 09 JR 1 1 PH AR WI MG MA LL CY IA TA M BL OF F ET CY NT HI AN A 00 05 06 00 60 30 EA 12 MC Ac 59 -1 -[address] 80 KE ti 10 9- 4- 00 SI 88 LA ve 50 20 20 DE E 30 09 09 JR 1 PH AR WI MA LL CY IA M OF F CY NT HI AN A AK 37 02 06 03 30 30 EA 11 MC Ac IL 00 -1 -[address] 51 KE ti OS 00 7- 4- 00 SI 23 LA ve EC 45 20 20 DE E 50 09 09 JR OT 2 PH C AR WI 20 MA LL .6 CY IA M MG OF F CY TA NT BL HI ET AN A ME 00 02 06 03 60 30 EA 11 TORRES Ac TO 09 -1 -[address] 51 RV ti AK 30 7 4 SI 57 EY ve OL 73 20 20 DE OL 31 09 09 LORRIE 0 PH DI TA AR RT MA RA CY TE OF 50 CY NT MG HI AN TA A B CR 00 05 06 00 30 30 EA 12 BE Ac ES 31 -1 -[address] 81 SS ti TO 00 9 4 SI 08 ON ve R 75 20 20 DE [address] 0 PH EP MG AR HE MA N TA CY A BL ET OF CY NT HI AN A TR 60 05 06 00 90 30 EA 12 BE Ac AM 50 -1 -[address] 81 SS ti AD 50 9- 4 00 SI 02 ON ve OL 17 20 20 DE [address] HC 8 PH EP L AR HE 50 MA N CY A MG OF TA CY BL NT ET HI AN A TR 00 05 06 [...] NT M HI AN A ME 16 05 06 00 12 30 EA 12 BE Ac TO 71 -1 -[address] 81 SS ti CL 40 9- 4- 00 SI 06 ON ve OP 06 20 20 0 DE RA [address] LA 6 PH EP DE AR HE MA N 10 CY A MG OF CY TA NT BL HI ET AN A LI 00 05 06 00 30 30 EA 12 BE Ac SI 17 -1 -[address] 81 SS ti NO 23 9- 4- 00 SI 07 ON ve AK 75 20 20 DE IL 96 09 [...] 00 90 30 EA 12 BE Ac AK 78 -1 -[address] 39 SS [...] NT ET HI AN A DI 00 02 04 02 [...] -1 -[address] 51 RV ti AK 30 7- 3- 00 SI 57 EY ve OL 73 20 20 DE OL 31 09 09 LORRIE 0 PH DI TA AR RT MA RA CY TE OF 50 CY NT MG HI AN TA A B AK 37 02 04 02 30 30 EA 11 MC Ac IL 00 -1 -[address] 51 KE ti OS 00 7- 3- 00 SI 23 LA ve EC 45 20 20 DE E 50 09 09 JR OT 2 PH C AR WI 20 MA LL .6 CY IA M MG OF F CY TA NT BL HI ET AN A TR 00 04 04 00 15 5 EA 12 TORRES Ac IA 16 -0 -[address] 18 RV ti MC 80 3- 9- 00 SI 69 EY ve IN 00 20 20 DE OL 31 09 09 LORRIE ON 5 PH DI E AR 0. MA 02 CY 5% OF CR CY EA NT M HI AN A TR 60 03 03 00 90 30 EA 11 TORRES Ac AM 50 -1 -[address] 96 RV ti AD 50 9- 6- 00 SI 90 EY ve OL 17 20 20 DE 10 09 09 LORRIE HC 8 PH DI L AR 50 MA CY MG OF TA CY BL NT ET HI AN A ME 00 02 03 01 60 30 EA 11 TORRES Ac TO 09 -1 -[address] 51 RV ti AK 30 7- 6- 00 SI 57 EY ve OL 73 20 20 DE OL 31 09 09 LORRIE 0 PH DI TA AR RT MA RA CY TE OF 50 CY NT MG HI AN TA A B AK 37 02 03 01 30 30 EA 11 MC Ac IL 00 -1 -[address] 51 KE ti OS 00 7- 6- 00 SI 23 LA ve EC 45 20 20 DE E 50 09 09 JR OT 2 PH C AR WI 20 MA LL .6 CY IA M MG OF F CY TA NT BL HI ET AN A 00 03 03 00 60 30 EA 11 BE Ac 59 -1 -[address] 96 SS ti 10 9- 6- 00 SI 92 ON ve 50 20 20 DE [address] 1 PH EP AR HE MA N CY A OF CY NT HI AN A AL 00 03 03 00 90 30 EA 11 MC Ac AK 78 -1 -[address] 96 KE ti AZ 11 9- 6- 00 SI 91 LA ve OL 07 20 20 DE E [...] CY ET NT HI AN A 60 02 03 00 20 10 EA 11 GA Ac 50 -2 -[address] 58 IN ti 51 3- 2- 00 SI 96 EY ve 30 20 20 DE 90 09 09 LA 1 PH CH AR AE MA L CY S OF CY NT HI AN A ME 00 02 03 00 21 6 EA 11 GA Ac TH 78 -2 -[address] 58 IN ti YL 15 3- 2- 00 SI 95 EY ve AK 02 20 20 DE ED 20 09 09 LA NI 7 PH CH SO AR AE LO MA L NE CY S 4 OF MG CY NT DO HI SE AN PK A 60 02 03 01 20 10 EA 11 GA Ac 50 -2 -[address] 58 IN ti 51 3- 2- 00 SI 96 EY ve 30 20 20 DE 90 09 09 LA 1 PH CH AR AE MA L CY S OF CY NT HI AN A TR [...] NT ET HI AN A DI 00 02 02 [...] CY ET NT HI AN A 00 02 02 00 [...] -1 -[address] 51 RV ti AK 30 7- 6- 00 SI 57 EY ve OL 73 20 20 DE OL 31 09 09 LORRIE 0 PH DI TA AR RT MA RA CY TE OF 50 CY NT MG HI AN TA A B AL 00 02 02 00 90 30 EA 11 MC Ac AK 78 -1 -[address] 51 KE ti AZ 11 7- 6- 00 SI 22 LA ve OL 07 20 20 DE E AM 90 09 09 JR 1 1 PH AR WI MG MA LL CY IA TA M BL OF F ET CY NT HI AN A AK 37 02 02 00 30 30 EA 11 JEANNINE Ac IL 00 -1 -[address] 51 SC ti OS 00 7- 6- 00 SI 23 H ve EC 45 20 20 DE AN 50 09 09 TO OT 2 PH NI C AR O 20 MA .6 CY MG OF CY TA NT BL HI ET AN A 00 01 01 00 60 [...] BL CY ET NT HI AN A AK 37 11 01 01 30 30 EA 10 JEANNINE Ac IL 00 -1 -[address] 31 SC ti OS 00 7- 0- 00 SI 57 H ve EC 45 20 20 DE AN 50 08 09 TO OT 2 PH NI C AR O 20 MA .6 CY MG OF CY TA NT BL HI ET AN A TR 60 01 01 00 90 30 EA 11 TORRES Ac AM 50 -1 -[address] 12 RV ti AD 50 6- 0- 00 SI 16 EY ve OL 17 20 20 DE 10 09 09 LORRIE HC 8 PH DI L AR 50 MA CY MG OF TA CY BL NT ET HI AN A AL 00 11 02 90 30 EA 10 MC Ac AK 78 -1 -[address] 31 KE ti AZ 11 7- 0- 00 SI 41 LA ve OL 07 20 20 DE E AM 90 08 09 JR 1 1 PH AR WI MG MA LL CY IA TA M BL OF F ET CY NT HI AN A ME 00 11 11 09 60 30 EA 10 BE Ac TO 09 -1 -[address] 31 SS ti AK 30 7- 0- 00 SI 49 ON ve OL 73 20 20 DE OL [address] 0 PH EP TA AR HE RT MA N RA CY A TE OF 50 CY NT MG HI AN TA A B TR 00 01 01 00 15 5 EA 11 TORRES Ac IA 16 -1 -[address] 08 RV ti MC 80 4- 0- 00 SI 92 EY ve IN 00 20 20 DE OL 31 09 09 LORRIE ON 5 PH DI E AR 0. MA 02 CY 5% OF CR CY EA NT M HI AN A AK 37 11 01 00 30 30 EA 10 JEANNINE Ac IL 00 -1 -[address] 31 SC ti OS 00 7- 1- 00 SI 57 H ve EC 45 20 20 DE AN 50 08 09 TO OT 2 PH NI C AR O 20 MA .6 CY MG OF CY TA NT BL HI ET AN A AL 00 11 01 90 30 EA 10 MC Ac AK 78 -1 -[address] 31 KE ti AZ 11 7- 1- 00 SI 41 LA ve OL 07 20 20 DE E [...] -1 -[address] 31 SS ti AK 30 7- 1- 00 SI 49 ON ve OL 73 20 20 DE OL [address] 0 PH EP TA AR HE RT MA N RA CY A TE OF 50 CY NT MG HI AN TA A B LI 00 11 01 00 30 30 EA 10 MC Ac SI 17 -1 -[address] 31 KE ti NO 23 7- 1- 00 SI 48 LA ve AK 75 20 20 DE E IL 96 08 09 JR 0 PH 10 AR WI MA LL MG CY IA M TA OF F BL CY ET NT HI AN A 00 11 12 00 60 30 EA 10 MC Ac 59 -1 -[address] 31 KE ti 10 7- 8- 00 SI 55 LA ve 50 20 20 DE E 30 08 08 JR 1 PH AR WI MA LL CY IA M OF F CY NT HI AN A AL 00 11 12 00 90 30 EA 10 MC Ac AK 78 -1 -[address] 31 KE ti AZ 11 7- 4- 00 SI 41 LA ve OL 07 20 20 DE E AM 90 08 08 JR 1 1 PH AR WI MG MA LL CY IA TA M BL OF F ET CY NT HI AN A AK 37 11 12 00 30 30 EA 10 JEANNINE Ac IL 00 -1 -[address] 29 SC ti OS 00 5- 4- 00 SI 21 H ve EC 45 20 20 DE AN 50 08 08 TO OT 2 PH NI C AR O 20 MA .6 CY MG OF CY TA NT BL HI ET AN A TR 60 11 12 00 [...] ET HI AN A AL 00 11 11 00 12 4 EA 10 TORRES Ac AK 78 -1 -[address] 27 RV ti AZ 11 4- 0- 00 SI 70 EY ve OL 07 20 20 DE AM 90 08 08 LORRIE 1 1 PH DI AR MG MA CY TA BL OF ET CY NT HI AN A LI 00 11 11 00 30 30 EA 10 MC Ac SI 17 -1 -[address] 27 KE ti NO 23 4- 0- 00 SI 66 LA ve AK 75 20 20 DE E IL 96 08 08 JR 0 PH 10 AR WI MA LL MG CY IA M TA OF F BL CY ET NT HI AN A TR 60 11 [...] -1 -[address] 27 KE ti AK 30 4- 0- 00 SI 68 LA ve OL 73 20 20 DE E OL 31 08 08 JR 0 PH TA AR WI RT MA LL RA CY IA TE M OF F 50 CY NT MG HI AN TA A B 00 11 11 00 60 30 EA [...] 3- 3- 00 SI 91 Av ve AK 75 20 20 DE ai IL 96 08 08 la 0 PH bl 10 AR e MA MG CY TA OF BL CY ET NT HI AN A 00 10 10 00 60 30 EA 99 No Ac 59 -1 -[address] 81 t ti 10 0- 3- 00 SI 68 Av ve 50 20 20 DE ai 30 08 08 la 1 PH bl AR e MA CY OF CY NT HI AN A AL 00 10 10 00 90 30 EA 99 No Ac AK 78 -1 -[address] 84 t [...] -1 -[address] 84 t ti AK 30 3- 3- 00 SI 92 Av ve OL 73 20 20 DE ai OL 31 08 08 la 0 PH bl TA AR e RT MA RA CY TE OF 50 CY NT MG HI AN TA A B TR 60 10 10 00 90 30 EA 99 No Ac AM 50 -1 -[address] 84 t ti AD 50 3- 3- 00 SI 90 Av ve OL 17 20 20 DE ai 10 08 08 la HC 8 PH bl L AR e 50 MA CY MG OF TA CY BL NT ET HI AN A DI 00 09 10 00 12 30 [...] BL NT ET HI AN A 58 08 09 01 60 30 EA 99 No Ac 17 -1 -[address] 04 t ti 70 1- 6- 00 SI 87 Av ve 30 20 20 DE ai 30 08 08 la 4 PH bl AR e MA CY OF CY NT HI AN A 00 09 09 00 60 30 EA 99 No Ac 59 -0 -[address] 40 t ti 10 8- 6- 00 SI 06 Av ve 50 20 20 DE ai 30 08 08 la 1 PH bl AR e MA CY OF CY NT HI AN A AL 00 09 09 00 90 30 EA 99 No Ac AK 78 -1 -[address] 46 t ti AZ 11 3- 6- 00 SI 93 Av ve OL 07 20 20 DE ai AM 90 08 08 la 1 1 PH bl AR e MG MA CY TA BL OF ET CY NT HI AN A AK 37 07 09 01 30 30 EA [...] -1 -[address] 35 t ti AK 30 2- 6- 00 SI 19 Av ve OL 73 20 20 DE ai OL 31 08 08 la 0 PH bl TA AR e RT MA RA CY TE OF 50 CY NT MG HI AN TA A B LI 00 06 09 03 30 30 EA 98 No Ac SI 17 -1 -[address] 35 t ti NO 23 2- 6- 00 SI 22 Av ve AK 75 20 20 DE ai IL 96 08 08 la 0 PH bl 10 AR e MA MG CY TA OF BL CY ET NT HI AN A 58 08 08 00 60 30 EA 99 No Ac 17 -1 -[address] 04 t ti 70 1- 8- 00 SI 87 Av ve 30 20 20 DE ai 30 08 08 la 4 PH bl AR e MA CY OF CY NT HI AN A AL 00 08 08 00 90 30 EA 99 No Ac AK 78 -1 -[address] 04 t [...] -1 -[address] 35 t ti AK 30 2- 8- 00 SI 19 Av [...] 2- 8- 00 SI 22 Av ve AK 75 20 20 DE ai IL 96 08 08 la 0 PH bl 10 AR e MA MG CY TA OF BL CY ET NT HI AN A ME 16 06 08 01 12 30 EA 98 No Ac TO 71 -1 -[address] 35 t ti CL 40 2- 8- 00 SI 24 Av ve OP 06 20 20 0 DE ai RA 20 08 08 la LA 6 PH bl DE AR e MA 10 CY MG OF CY TA NT BL HI ET AN A 00 08 08 00 60 30 EA 99 No Ac 59 -0 -[address] 01 t ti 10 8- 4- 00 SI 09 Av ve 50 20 20 DE ai 30 08 08 la 1 PH bl AR e MA CY OF CY NT HI AN A AK 37 07 08 00 30 30 EA 98 No Ac IL 00 -3 -[address] 89 t ti OS 00 0- 4- 00 SI 50 Av ve EC 45 20 20 DE ai 50 08 08 la OT 2 PH bl C AR e 20 MA .6 CY MG OF CY TA NT BL HI ET AN A PO 51 07 08 00 [...] 50 NT HI PO AN WD A 58 07 08 00 60 30 [...] NT ET HI AN A AL 00 07 08 00 90 30 EA 98 No Ac AK 78 -1 -[address] 69 t [...] -1 -[address] 35 t ti AK 30 2- 7- 00 SI 19 Av [...] 2- 7- 00 SI 22 Av ve AK 75 20 20 DE ai IL 96 08 08 la 0 PH bl 10 AR e MA MG CY TA OF BL CY ET NT HI AN A AL 00 06 07 00 90 30 EA 98 No Ac AK 78 -1 -[address] 35 t [...] -1 -[address] 35 t ti AK 30 2- 3- 00 SI 19 Av ve OL 73 20 20 DE ai OL 31 08 08 la 0 PH bl TA AR e RT MA RA CY TE OF 50 CY NT MG HI AN TA A B LI 00 06 07 00 30 30 EA 98 No Ac SI 17 -1 -[address] 35 t ti NO 23 2- 3- 00 SI 22 Av ve AK 75 20 20 DE ai IL 96 [...] NT ET HI AN A 57 09 06 05 60 30 EA 94 No Ac 66 -0 -[address] 61 t ti 40 4- 5- 00 SI 45 Av ve 47 20 20 DE ai 71 07 08 la 8 PH bl AR e MA CY OF CY NT HI AN A 00 05 05 00 [...] 4- 2- 00 SI 96 Av ve AK 75 20 20 DE ai IL 96 08 08 la 0 PH bl 10 AR e MA MG CY TA OF BL CY ET NT HI AN A 50 05 05 [...] 00 90 30 EA 97 No Ac AK 78 -1 -[address] 98 t [...] BL NT ET HI AN A 58 05 05 00 [...] 4- 4- 00 SI 96 Av ve AK 75 20 20 DE ai IL 96 08 08 la 0 PH bl 10 AR e MA MG CY TA OF BL CY ET NT HI AN A 50 02 04 02 10 25 EA 96 No Ac 11 -0 -[address] 62 t ti 10 2- 4- 00 SI 45 Av ve 43 20 20 0 DE ai 00 08 08 la 1 PH bl AR e MA CY OF CY NT HI AN A 57 09 04 04 60 30 EA 94 No Ac 66 -0 -[address] 61 t ti 40 4- 4- 00 SI 45 Av ve 47 20 20 DE ai 71 07 08 la 8 PH bl AR e MA CY OF CY NT HI AN A AL 00 04 04 00 90 30 EA 97 No Ac AK 78 -1 -[address] 60 t ti AZ 11 4- 4- 00 SI 94 Av ve OL 07 20 20 DE ai AM 90 08 08 la 1 1 PH bl AR e MG MA CY TA BL OF ET CY NT HI AN A CY 00 04 04 00 90 30 EA 97 No Ac CL 59 -0 -[address] 50 t ti OB 15 7- 4- 00 SI 57 Av ve EN 65 20 20 DE ai ZA 80 08 08 la AK 1 PH bl IN AR e E MA 10 CY MG OF CY TA NT BL HI ET AN A NA 00 02 04 01 60 30 EA 96 No Ac AK 09 -0 -[address] 62 t ti OX 30 2- 4- 00 SI 46 Av ve EN 14 20 20 DE ai 90 08 08 la 50 1 PH bl 0 AR e MG MA CY TA BL OF ET CY NT HI AN A 00 04 [...] CY BL NT ET HI AN A 50 02 04 01 [...] 5- 7- 00 SI 36 Av ve AK 75 20 20 DE ai IL 96 [...] 00 90 30 EA 97 No Ac AK 78 -1 -[address] 17 t ti AZ 11 1- 7- 00 SI 16 Av ve OL 07 20 20 DE ai AM 90 08 08 la 1 1 PH bl AR e MG MA CY TA BL OF ET CY NT HI AN A 57 09 [...] OF CY NT HI AN A 00 02 [...] 00 60 30 EA 96 No Ac AK 09 -0 -[address] 62 t ti OX 30 2- 6- 00 SI 46 Av ve EN 14 20 20 DE ai 90 08 08 la 50 1 PH bl 0 AR e MG MA CY TA BL OF ET CY NT HI AN A FL 00 [...] 00 90 30 EA 96 No Ac AK 78 -1 -[address] 75 t [...] 5- 6- 00 SI 36 Av ve AK 75 20 20 DE ai IL 96 [...] 00 90 30 EA 96 No Ac AK 78 -1 -[address] 31 t ti AZ 11 1- 5- 00 SI 17 Av ve OL 07 20 20 DE ai AM 90 08 08 la 1 1 PH bl AR e MG MA CY TA BL OF ET CY NT HI AN A 00 01 [...] CY BL NT ET HI AN A FL 00 01 03 [...] ET NT HI AN A LI 00 09 03 03 30 30 EA 94 No Ac SI 17 -0 -[address] 64 t ti NO 23 5- 4- 00 SI 36 Av ve AK 75 20 20 DE ai IL 96 07 08 la 0 PH bl 10 AR e MA MG CY TA OF BL CY ET NT HI AN A 53 01 03 00 [...] CY OF CY NT HI AN A Vital Signs 03-08-2013 [...] Detail nces retati t Range on CBC w auto diff (08-16-2017 22:30) Automat 2 = 0.1 0-0.2 complet ed 017 K/MM3 ed blood 22:30 basophi l count (count/ vo Baso % = 0.7 % 0.1-2.0 complet 017 ed 22:30 Automat = 0.2 0.0-0.4 complet ed 017 K/mm3 ed blood 22:30 eosinop hil count Automat = 2.2 % 0.1-12. complet ed 017 0 ed blood 22:30 eosinop hils/10 0 leukocy t Blood = 5.5 1.8-7.8 complet granulo 017 K/mm3 ed cytes 22:30 automat ed count (numb Granulo = 56.1 37.0-80 complet cyte 017 % .0 ed percent 22:30 age Blood = 43.9 37.0-47 complet hematoc 017 % .0 ed rit 22:30 (volume fractio n) Blood = 14.2 12.2-16 complet hemoglo 017 g/dL .2 ed bin 22:30 measure ment (mass/v olum Absolut = 3.4 0.7-4.5 complet e 017 K/mm3 ed lymphoc 22:30 yte count Lymphoc = 34.4 10-50.0 complet yte 017 % ed count, 22:30 blood, automat ed Mean = 33.4 27-31.2 complet corpusc 017 pg ed ular 22:30 hemoglo bin (MCH) determ Automat = 32.3 31.8-35 complet ed 017 g/dl .4 ed erythro 22:30 cyte mean corpusc ular h Automat = 103.5 82.2-97 complet ed 017 fl .8 ed erythro 22:30 cyte mean corpusc ular v Absolut = 0.6 0.1-1.0 complet e 017 K/mm3 ed monocyt 22:30 e count Martin % = 6.6 % 1.7-9.3 complet 017 ed 22:30 Automat = 8.9 7.4-10. complet ed 017 fl 4 ed blood 22:30 platele t mean volume anu Blood = 285 142-424 complet platele 017 K/mm3 ed t count 22:30 Red = 4.24 4.2-5.4 complet blood 017 M/mm3 ed cell 22:30 count Automat = 13.1 11.5-17 complet ed 017 % .5 ed erythro 22:30 cyte distrib ution width Blood = 9.8 4.8-10. complet leukocy 017 K/MM3 8 ed jovi 22:30 count (number /volume ) Cardiac enzymes (08-16-2017 22:30) Serum = 0.5 0-4.0 complet or 017 U/L ed plasma 22:30 creatin e kinase MB (CK-M Serum < 0.5 0.0-3.6 complet or 017 ng/mL ed plasma 22:30 creatin e kinase MB measu Serum = 109 26-192 complet or 017 U/L ed plasma 22:30 creatin e kinase measure m Serum < 0.02 0.00-0. complet or 017 ng/mL 06 ed plasma 22:30 troponi n i.cardi ac measu Comprehensive metabolic panel (08-16-2017 22:30) Serum = 1.2 1.1-1.8 complet or 017 ed plasma 22:30 albumin /globul in mass ra Serum = 4.1 3.4-5.0 complet or 017 gm/dL ed plasma 22:30 albumin measure ment (mas Serum = 92 46-116 complet or 017 U/L ed plasma 22:30 alkalin e phospha tase anu Serum = 0.3 0.2-1.0 complet or 017 mg/dL ed plasma 22:30 total bilirub in measure m Serum = 22 7-18 complet or 017 mg/dL ed plasma 22:30 urea nitroge n measure men Serum = 8.9 8.5-10. complet or 017 mg/dL 1 ed plasma 22:30 calcium measure ment (mas Serum = 105 98-107 complet or 017 mmoL/L ed plasma 22:30 chlorid e measure ment (mo Carbon = 32 21.0-32 complet dioxide 017 mmoL/L .0 ed 22:30 measure ment Serum = 0.9 0.55-1. complet or 017 mg/dL 02 ed plasma 22:30 creatin ine measure ment ( Estimat = 60 50-200 complet ion of 017 ML/MIN ed creatin 22:30 ine renal clearan ce Estimat = 63 59- complet ed 017 ML/MIN ed glomeru 22:30 lar filtrat ion rate (GF Comment: REFERENCE RANGE: >60 ML/MIN/1.73 SQUARE METERS Comment: If this patient is -[place], then multiply the Comment: result by 1.210. Serum = 3.4 1.3-3.2 complet globuli 017 gm/dL ed n 22:30 measure ment (mass/v olume) Serum = 86 74-106 complet or 017 mg/dL ed plasma 22:30 glucose measure ment (mas Serum = 4.1 3.5-5.1 complet potassi 017 mmoL/L ed um 22:30 measure ment Comment: SERUM SLIGHTLY HEMOLYZED Serum = 141 136-145 complet sodium 017 mmoL/L ed measure 22:30 ment Serum = 4 U/L 15-37 complet or 017 ed plasma 22:30 asparta te aminotr ansfera ALT = 21 12-78 complet (SGPT) 017 U/L ed ser/delonte 22:30 s Protein = 7.5 6.4-8.2 complet total 017 gm/dL ed ser/delonte 22:30 s CBC with AUTO DIFF (03-07-2013 06:30) WBC # 03-07-2 14.6 4.8-10. complet Bld 013 K/MM3 8 ed Auto 06:30 RBC # 03-07-2 4.63 4.2-5.4 complet Bld 013 M/mm3 ed Auto 06:30 Hgb 14.7 12.2-16 complet Bld-mCn 013 g/dL .2 ed c 06:30 Hct Fr 44.3 % 37.0-47 complet Bld 013 .0 ed 06:30 MCV RBC 95.6 fl 82.2-97 complet 013 .8 ed 06:30 MCH RBC 31.7 pg 27-31.2 complet Qn 013 ed Auto 06:30 MEAN 33.2 31.8-35 complet CORPUSC 013 g/dl .4 ed ULAR 06:30 HGB CONC RDW RBC 15.0 % 11.5-17 complet Auto 013 .5 ed 06:30 Platele 04-29-2 323 142-424 complet t Bld 013 K/mm3 ed Ql 06:30 Manual MEAN 03-07-2 8.4 fl 7.4-10. complet PLATELE 013 4 ed T 06:30 VOLUME Granulo 03-07-2 65.3 % 37.0-80 complet cytes 013 .0 ed Fr Bld 06:30 Auto LYMPH % -29-2 29.2 % 10-50.0 complet 013 ed 06:30 Monocyt -29-2 4.5 % 1.7-9.3 complet es Fr 013 ed Bld 06:30 Auto Eosinop -29-2 0.5 % 0.1-12. complet hil Fr 013 0 ed Bld 06:30 Auto Basophi 29-2 0.4 % 0.1-2.0 complet ls Fr 013 ed Bld 06:30 Auto Granulo -29-2 9.5 1.8-7.8 complet cytes # 013 K/mm3 ed Bld 06:30 Auto Lymphoc 29-2 4.3 0.7-4.5 complet ytes Fr 013 K/mm3 ed Bld 06:30 Auto Monocyt -29-2 0.7 0.1-1.0 complet es # 013 K/mm3 ed Bld 06:30 Auto Eosinop -29-2 0.1 0.0-0.4 complet hil # 013 K/mm3 ed Bld 06:30 Auto Basophi 04-29-2 0.1 0-0.2 complet ls # 013 K/MM3 ed Bld 06:30 Auto COMPREHENSIVE METABOLIC PANEL (03-06-2013 13:20) Glucose 115 74-106 complet 013 mg/dL ed Bld-mCn 13:20 c BUN 17 7-18 complet Bld-mCn 013 mg/dL ed c 13:20 Creat 0.7 0.6-1.0 complet SerPl-m 013 mg/dL ed [...] Bld 013 M/mm3 ed Auto 13:20 Hgb 15.1 12.2-16 complet Bld-mCn 013 g/dL .2 ed c 13:20 Hct Fr 45.8 % 37.0-47 complet Bld 013 .0 ed 13:20 MCV RBC 96.0 fl 82.2-97 complet 013 .8 ed 13:20 MCH RBC 2 31.7 pg 27-31.2 complet Qn 013 ed Auto 13:20 MEAN 2 33.0 31.8-35 complet CORPUSC 013 g/dl .4 ed ULAR 13:20 HGB CONC RDW RBC 03-06-2 15.1 % 11.5-17 complet Auto 013 .5 ed 13:20 Platele 03-06-2 359 142-424 complet t Bld 013 K/mm3 ed Ql 13:20 Manual MEAN 2 7.7 fl 7.4-10. complet PLATELE 013 4 ed T 13:20 VOLUME Granulo 03-06-2 68.5 % 37.0-80 complet cytes 013 .0 ed Fr Bld 13:20 Auto LYMPH % 03-06-2 25.1 % 10-50.0 complet 013 ed 13:20 Monocyt 03-06-2 4.9 % 1.7-9.3 complet es Fr 013 ed Bld 13:20 Auto Eosinop 28-2 1.0 % 0.1-12. complet hil Fr 013 0 ed Bld 13:20 Auto Basophi 28-2 0.5 % 0.1-2.0 complet ls Fr 013 ed Bld 13:20 Auto Granulo 28-2 9.9 1.8-7.8 complet cytes # 013 K/mm3 ed Bld 13:20 Auto Lymphoc 28-2 3.6 0.7-4.5 complet ytes Fr 013 K/mm3 ed Bld 13:20 Auto Monocyt 28-2 0.7 0.1-1.0 complet es # 013 K/mm3 ed Bld 13:20 Auto Eosinop 28-2 0.1 0.0-0.4 complet hil # 013 K/mm3 ed Bld 13:20 Auto Basophi 28-2 0.1 0-0.2 complet ls # 013 K/MM3 ed Bld 13:20 Auto MYCOPLASMA IGM (RAPID) (03-06-2013 13:20) MYCOPLA 28-2 NON-NORMAN NONREAC complet SMA IGM 013 CTIVE TIVE ed 13:20 (RAPID) Procedures Procedure DOS Code Location Performer Comment RADEX 24640 [facility] SPINE 7 [place] LUMBOSACR ORTHOPAED AL 2/3 IC VIEWS CULTURE 04670 COMBINED COMBINED BACTERIAL 7 PHYSICIAN PHYSICIAN S LA S LA QUANTTATI VE COLONY COUNT URINE URNLS DIP 66399 [place] [facility] 7 [facility] STICK/TAB INTERNAL LET RGNT MED NON-AUTO W/O MICRSCP DRUG TEST 10141 [facility] PRSMV 7 [facility] QUAL DIR INC INC OPTICAL OBS PER DAY DRUG 08171 [facility] SCREENING 7 [facility] OPIOIDS INC INC & OPIATE ANALOGS 5/MORE DRUG 91056 [facility] SCREENING 7 [facility] INC INC BENZODIAZ EPINES 1-12 DRUG 09614 [facility] SCREENING 7 [facility] INC INC [place]NABINO IDS NATURAL NJX 86734 ANITA BUX DX/THER 7 MD ROSA, SBST PSC INTRLMNR LMBR/SAC W/IMG GDN COLLECTIO 11818 [facility] N VENOUS 7 [facility] BLOOD INC INC VENIPUNCT URE BASIC 25277 [facility] METABOLIC 7 [facility] [place]EL [place] T[place] [address] ANITA DUFF JOINT 7 [facility] Y&/ANES/S TEROID W/MICHELLE UNCLASSIF J3490 [facility] IED DRUGS 7 [facility] INC INC UNCLASSIF J3490 [facility] IED DRUGS 7 [facility] INC INC MYOCARDIA 73950 [facility] L SPECT 7 [facility] MULTIPLE INC INC STUDIES ECHO 70731 [facility] TTHRC R-T 7 [facility] 2D INC INC W/WOM-MOD E COMPL SPEC&COLR D DUPLEX 99113 [facility] SCAN 7 [facility] EXTRACRAN INC INC IAL ART COMPL BI STUDY CV STRS 18228 [facility] TST 7 [facility] XERS&/OR INC INC RX CONT ECG TRCG ONLY CV STRS 16967 [facility] COOK TST 7 PHYSICIAN XERS&/OR S GROUP RX CONT ECG W/O I&R COLLECTIO 06422 [facility] N VENOUS 7 [facility] BLOOD INC INC VENIPUNCT URE DRUG TEST 36095 [facility] PRSMV [address] [facility] QUAL DIR INC INC OPTICAL OBS PER DAY LIPID 26361 [facility] PANEL 7 [facility] INC INC ECG 51080 [facility] ROUTINE [address] [facility] ECG INC INC W/LEAST 12 LDS TRCG ONLY W/O I&R CREATINE 22396 [facility] KINASE [address] [facility] [place] [address] [facility] TROPONIN [address] [facility] QUANTITAT INC INC ANUPAMA SMR PRIM 65879 [facility] SRC [address] [facility] GRAM/GIEM INC INC SA STAIN BCT FUNGI/ADAMA L RADIOLOGI 12773 [facility] C EXAM 6 [facility] CHEST 2 INC INC VIEWS FRONTAL&L ATERAL CREATINE 17742 [facility] KINASE MB 6 [facility] FRACTION INC INC ONLY HOSPITAL G0378 [facility] OBSERVATI 6 [facility] ON INC INC SERVICE PER HOUR COLLECTIO 64716 [facility] N VENOUS 6 [facility] BLOOD INC INC VENIPUNCT URE BLOOD 43571 [facility] COUNT [address] [facility] COMPLETE INC INC AUTO&AUTO DIFRNTL WBC CUL BACT 14857 [facility] XCPT 6 [facility] URINE INC INC BLOOD/STO OL AEROBIC ISOL BASIC 69262 [facility] METABOLIC [address] [facility] PANEL INC INC CALCIUM TOTAL THROMBOPL 24909 [facility] ASTIN 6 [facility] TIME INC INC PARTIAL PLASMA/WH OLE BLOOD CULTURE 46197 [facility] BACTERIAL 6 [facility] BLOOD INC INC AEROBIC W/ID ISOLATES RADIOLOGI 57066 CRYSTAL ALYSON C EXAM 6 MEDICAL CHEST 2 IMAGING VIEWS ASS FRONTAL&L ATERAL HOSPITAL G0378 [facility] OBSERVATI 6 [facility] ON INC INC SERVICE PER HOUR COLLECTIO 98073 [facility] N VENOUS 6 [facility] BLOOD INC INC VENIPUNCT URE COMPREHEN 99284 [facility] SIVE 6 [facility] METABOLIC INC INC PANEL CREATINE 12145 [facility] KINASE MB 6 [facility] [place] [address] [facility] LACTATE 6 [facility] INC INC PRESSURIZ 07951 [facility] ED/NONPRE 6 [facility] SSURIZED INC INC INHALATIO N TREATMENT THERAPEUT 16500 [facility] IC 6 [facility] INJECTION INC INC IV PUSH EACH NEW DRUG NATRIURET 15556 [facility] IC 6 [facility] PEPTIDE INC INC BLOOD 76291 [facility] COUNT 6 [facility] COMPLETE INC INC AUTO&[place] [address] [facility] TROPONIN 6 [facility] QUANTITAT INC INC ANUPAMA ECG 51217 [facility] ROUTINE 6 [facility] W/LEAST P 12 LDS I&R ONLY PROTHROMB 22247 [facility] IN TIME 6 [facility] INC INC THER 24842 [facility] PROPH/DX 6 [facility] NJX IV INC INC PUSH SINGLE/1S T SBST/DRUG ECG 78801 [facility] ROUTINE 6 [facility] ECG INC INC W/LEAST 12 LDS TRCG ONLY W/O I&R CREATINE 36494 [facility] KINASE 6 [facility] TOTAL INC INC CULTURE 73036 COMBINED COMBINED BACTERIAL 6 PHYSICIAN PHYSICIAN S LA S LA QUANTTATI VE COLONY COUNT URINE BLOOD 06731 [facility] MIS OCCULT 6 [facility] PEROXIDAS INTERNAL E ACTV MED QUAL FECES 1 DETER URNLS DIP 25288 [place] [facility] MIS 6 [facility] STICK/TAB INTERNAL LET RGNT MED NON-AUTO W/O MICRSCP CYTP C/V 79334 [facility], PICKLESIM AUTO THIN 6 LLC ER JR DARIUSZ LYR PREPJ SCR MNL RESCR PHYS SCREENING G0202 [place] JADYN 6 MEDICAL MAMMOGRAP IMAGING HY NIESHA ASS INCL CAD WHEN PERFORMD DRUG TST G0477 COMBINED NATHANIEL PRESUMP;C 6 PHYSICIAN LEO PBL [place] [address] [facility] HEAD/BRAI 6 [facility] N W/O INC INC CONTRAST MATERIAL URNLS DIP 48111 [facility] 6 [facility] STICK/TAB INC INC LET REAGENT AUTO MICROSCOP Y REMOVAL 67849 [facility] VERGARA IMPACTED 6 PHYSICIAN TU CERUMEN S GROUP INSTRUMEN TATION UNILAT ECG RTN G0403 COMBINED COMBINED ECG W/12 6 PHYSICIAN PHYSICIAN LEADS SCR S LA S LA INIT PREVNTV PE W/I&R DRUG TST G0477 COMBINED COMBINED PRESUMP;C 6 PHYSICIAN PHYSICIAN PBL BEING S LA S LA READ DC OPT OBV ONLY NEEDLE 26165 [facility] EA 6 N EXTREMTY NEUROLOGY W/PARASPI NL AREA COMPLETE NERVE 16872 [facility] CONDUCTIO 6 N N STUDIES NEUROLOGY 9-10 STUDIES ANES 02235 [facility] UPPER GI 6 [place] SUKH ENDOSCOPY ANESTHESI PROXIMAL A TO DUODENUM EGD 34035 [facility] THO TRANSORAL 6 L SURGIAL BIOPSY SINGLE/[place] [address] CHIP VINCENT SURG 6 [facility] DUBILIER GROSS&[place] [address] [facility] GAMMAGLOB 5 [facility]EL[facility] KELTON ULIN IGA HOLDINGS HOLDINGS IGD IGG IGM EACH IMMUNOASS 54928 [facility] AY 5 KEL[facility]ELTON ANALYTE HOLDINGS HOLDINGS QUAL/SEMI QUAL MULTIPLE STEP ECG 21601 [facility] ROUTINE 5 EMERGENCY GREG ECG PHYS PSC W/LEAST 12 LDS I&R ONLY RADIOLOGI 63421 [employer] MONTANO C 5 RADIOLOGY SHANNON EXAMINATI ASSOC ON CHEST SINGLE VIEW FRONTAL COMPREHEN 00364 [facility] SIVE 5 [facility] METABOLIC INC INC PANEL RADEX 11959 [facility] FOOT 5 [facility] COMPLETE INC INC MINIMUM 3 VIEWS BLOOD 70880 [facility] COUNT 5 [facility] COMPLETE INC INC AUTO&AUTO DIFRNTL WBC RADIOLOGI 38422 [facility] C [address] [facility] EXAMINATI INC INC ON TIBIA & FIBULA 2 VIEWS OPHTH 46119 SC[facility] SCIFRES MEDICAL 5 ANG ANG XM&EVAL COMPRHNSV ESTAB PT 1/> HOSPITAL 06306 [facility] [facility] DISCHARGE 5 [facility] DAY INTERNAL MANAGEMEN MED T 30 MIN/< INITIAL 68257 [facility] 5 [facility] ON INTERNAL CARE/DAY MED 30 MINUTES ECG 29063 [facility] ROUTINE 5 [facility] W/LEAST P 12 LDS I&[place] [address] [facility] ABDOMEN & 5 MEDICAL FAHEEM PELVIS IMAGING W/O ASS CONTRAST MATERIAL RADIOLOGI 24791 [place] [facility] ALL C EXAM 5 MEDICAL CHEST 2 IMAGING VIEWS ASS FRONTAL&L ATERAL PRESSURIZ 50104 [facility] ED/NONPRE 5 [facility] HOSP SSURIZED INC INC INHALATIO N TREATMENT ANES 17997 [facility] OVIDIO TRANSURET 5 ANESTH HRAL OF THE W/URETHRO BLUE CYSTOSCOP Y NOS CYSTO 78277 [facility] CALIBRATI [address] [facility] HOS[facility] ON DILAT INC INC URTL STRIX/[facility] 21201 [place] DISCHARGE 5 [facility] DAY INTERNAL MANAGEMEN MED T 30 MIN/< [facility]ITIAL [facility] 5 [facility] CARE/DAY INTERNAL 50 MED MINUTES INITIAL 96613 [facility] INPATIENT 5 PHYSICIAN CAM CONSULT S GROUP NEW/ESTAB [place] [address] [place] [address] [facility] ABDOMEN & 5 MEDICAL FAHEEM PELVIS IMAGING W/O ASS CONTRAST MATERIAL CV STRS 40888 [facility] TST 5 [facility] ROM XERS&/OR MEDICAL RX CONT G ECG I&R ONLY ECHO 61508 [facility] R-T 5 [facility] 2D MEDICAL W/WOM-MOD G E COMPL SPEC&COLR D ECHO 69445 [facility] R-T 5 [facility] 2D W/WOM-MOD E COMPL SPEC&COLR D CV STRS [address] XERS&/OR RX CONT ECG TRCG ONLY MRI 81544 [place] EUGENIO ABDOMEN 5 MEDICAL LA W/O IMAGING CONTRAST ASS MATERIAL BLOOD 25636 [facility] COUNT 5 [facility] COMPLETE INC INC AUTO&AUTO DIFRNTL WBC COLLECTIO 79416 [facility] N VENOUS 5 [facility] BLOOD INC INC VENIPUNCT URE COMPREHEN 39621 [facility] SIVE 5 [facility] [place] [address] [facility] AMYLASE 5 [place] [address] [facility] LIPASE 5 [facility] INC INC MRI 30542 [facility] TRA SPINAL 5 [place] CANAL ORTHOPAED LUMBAR ICS PLC W/O CONTRAST MATERIAL RADIOLOGI 41960 [place] EUGENIO C EXAM 5 MEDICAL LA CHEST 2 IMAGING VIEWS ASS FRONTAL&L ATERAL APPL 35753 [facility] MODALITY 5 [facility] 1/> AREAS INC INC ELEC STIMJ UNATTENDE D APPLICATI 25693 [facility] ON 5 [facility] MODALITY INC INC 1/> AREAS HOT/COLD PACKS APPL 97349 [facility] MODALITY 5 [facility] 1/> AREAS INC INC ULTRASOUN D EA 15 MIN APPL 19711 [facility] MODALITY 5 [facility] 1/> AREAS INC INC ULTRASOUN D EA 15 MIN APPL 31614 [facility] MODALITY 5 [facility] 1/> AREAS INC INC ULTRASOUN D EA 15 MIN APPLICATI 54607 [facility] ON 5 [facility] MODALITY INC INC 1/> AREAS HOT/COLD PACKS APPL 36411 [facility] MODALITY 5 [facility] 1/> AREAS INC INC ELEC STIMJ UNATTENDE D APPL 89301 [facility] MODALITY 5 [facility] 1/> AREAS INC INC ELEC STIMJ UNATTENDE D APPLICATI 46063 [facility] ON 5 [facility] MODALITY INC INC 1/> AREAS HOT/COLD PACKS APPL 07926 [facility] MODALITY 5 [facility] 1/> AREAS INC INC ULTRASOUN D EA 15 MIN LOCM Q9967 [facility] 300-399 5 [facility] MG/ML INC [place] [address] [place] EUGENIO ABDOMEN & 5 MEDICAL LA PELVIS IMAGING W/CONTRAS ASS T MATERIAL APPL 55228 [facility] MODALITY 5 [facility] 1/> AREAS INC INC ELEC STIMJ UNATTENDE D COLLECTIO 35450 [facility] N VENOUS 5 [facility] [place] [address] [facility] UREA 5 [facility] NITROGEN INC INC QUANTITAT ANUPAMA APPL 76246 M[facility] MODALITY 5 [facility] 1/> AREAS INC INC ULTRASOUN D EA 15 MIN APPLICATI 79073 [facility] ON 5 [facility] MODALITY INC INC 1/> AREAS HOT/COLD PACKS CREATININ 99948 [facility] E BLOOD 5 [facility] INC INC APPLICATI 76949 [facility] ON 5 [facility] MODALITY INC INC 1/> AREAS HOT/COLD PACKS APPL 77803 [facility] MODALITY 5 [facility] 1/> AREAS INC INC ULTRASOUN D EA 15 MIN APPL 16452 [facility] MODALITY 5 [facility] 1/> AREAS INC INC ELEC STIMJ UNATTENDE D PHYSICAL 04064 [facility] THERAPY 5 [facility] EVALUATIO INC INC N COMPUTER- 07478 [place] EUGENIO AIDED 5 MEDICAL LA DETECTION IMAGING ASS SCREENING MAMMOGRAP HY SCREENING G0202 [place] EUGENIO 5 MEDICAL LA MAMMOGRAP IMAGING HY NIESHA ASS INCL CAD WHEN PERFORMD RADEX 79196 [place] EUGENIO SPINE 5 MEDICAL LA LUMBOSACR IMAGING AL ASS MINIMUM 4 VIEWS TYMPANOME 55505 JAI ARRIAGA TRY 4 TU RAIMUNDO DISTORT 68689 JAI CORINA PRODUCT 4 TU RAIMUNDO EVOKED OTOACOUST IC EMISNS LIMITD COMPRE 34213 JAI ARRIAGA AUDIOMETR 4 TU RAIMUNDO Y THRESHOLD EVAL SP RECOGNIJ DEBRIDEME 33552 JAI VERGARA NT 4 MASTOIDEC LILI CAVITY SIMPLE O2 CONC 1 E1390 [facility] DEL PORT 4 DISCOUNT DISCOUNT 85%/>02 [facility] FLW RATE PORTABLE K0738 GOU[facility]OU[facility] GASEOUS 4 DISCOUNT DISCOUNT O2 SYS [facility]ENT[facility]; HOME COMPRESSO R PORTABLE K0738 GOU[facility] GOU[facility] GASEOUS 4 DISCOUNT DISCOUNT O2 SYS [facility]ENT[facility]; HOME COMPRESSO R O2 CONC 1 E1390 GOULDS GOULDS DEL PORT 4 DISCOUNT DISCOUNT 85%/>02 [facility] FLW RATE ECG 56339 [facility] ROUTINE 4 HEART SOLEDAD ECG SPECIALIS W/LEAST TS, 12 LDS I&R ONLY MONITOR 76569 WYATT SCHNEIDER T ID& 4 LATERALIZ ATION SEIZURE FOCUS EEG ELECTROEN 49177 WYATT Espinosa CEPHALOGR 4 AM W/REC AWAKE&ASL EEP ARTL 19762 KARLY BRANDT CATHJ/CAN 4 ANAHI ANAHI NULJ MNTR/WEBER SFUSION SPX PRQ LEVEL III 26874 [facility] VINCENT SURG 4 [facility] GROSS&HENRRY ROSCOPIC EXAM DECALCIFI 35484 [facility]IPPS VINCENT CATION 4 [facility] PROCEDURE DUBILIER SBSQ 60842 [facility] 4 YUR YUR CARE/DAY 35 MINUTES TEAEC 32388 [facility] VIRK W/PATCH 4 CARDIOTHO ROHAN GRF RACIC CAROTID SURGI VERTB SUBCLAV NECK INC ANESTHESI 68320 KARLY BRANDT A MAJOR 4 ANAHI ANAHI VESSELS NECK NOS RADIOLOGI 71663 MONTANO MONTANO C EXAM 4 SHANNON SHANNON CHEST 2 VIEWS FRONTAL&L ATERAL ECG 42628 [place] ARMENDARIZ ROUTINE 4 HEART SOLEDAD ECG SPECIALIS W/LEAST TS, 12 LDS [place] [address] OLIVER ADA OLIVER ADA ANGIOGRAP 4 HY NECK W/CONTRAS T/[place] PRQ 92783 ARMENDARIZ ARMENDARIZ TRLUML 4 SOLEDAD SOLEDAD CORONARY STENT W/ANGIO ONE ART/BRNCH CATH PLMT 81113 ARMENDARIZ ARMENDARIZ L HRT & 4 SOLEDAD SOLEDAD ARTS W/NJX & ANGIO IMG S&I RADIOLOGI 77799 CHARIS CHARIS C EXAM 4 ANAHI ANAHI KNEE COMPLETE 4/MORE VIEWS DUPLEX 46605 MOOSE VIRK SCAN 4 ROHAN ROHAN EXTRACRAN IAL ART COMPL BI STUDY INJECTION J3301 [place] LATTERMAN 4 MEDICAL N CHR TRIAMCINO SERV LONE FOUNDATIO ACETONIDE N NOS 10 MG ARTHROCEN 71364 [place] [facility] TESIS 4 MEDICAL N CHR ASPIR&/IN SERV J MAJOR FOUNDATIO JT/BURSA N W/O US ARTHROCEN 48442 [place] [facility] TESIS 4 MEDICAL N CHR ASPIR&/IN SERV J INTERM FOUNDATIO JT/BURS N W/O US RADEX 18035 [facility] 4 Y Y COMPLETE [facility] MINIMUM 3 VIEWS DRUG SCR G0434 ADRIEL HAM ADRIEL HAM NOT 4 CHROMATOG RAPHIC; ANY NUMBER PT ENC COMPREHEN 22213 [facility] SIVE 3 [facility] METABOLIC INC INC PANEL LIPID 26491 [facility] PANEL 3 [facility] INC INC SCREENING G0202 [facility] 3 [facility] MAMMOGRAP INC INC HY NIESHA INCL CAD WHEN PERFORMD COMPUTER- 36742 [facility] AIDED [address] [facility]OS[facility] DETECTION INC INC SCREENING MAMMOGRAP HY CYTP C/V 93416 PICKLESIM PICKLESIM AUTO THIN 3 ER JR DARIUSZ ER JR DARIUSZ LYR PREPJ SCR MNL RESCR PHYS BLOOD 04560 ELIZAB[facility] ELIZABETH OCCULT 3 AUDRA AUDRA PEROXIDAS E ACTV QUAL FECES 1 DETER URNLS DIP 68887 ELIZABETH ELIZABETH 3 AUDRA AUDRA STICK/TAB LET RGNT NON-AUTO W/O MICRSCP DUPLEX 98287 [facility] SCAN [address] [facility] HOSP EXTRACRAN INC INC IAL ART COMPL BI STUDY MYOCARDIA 02337 EUGENIO EUGENIO L SPECT 3 LA LA SINGLE STUDY AT REST OR STRESS CV STRS 16584 [facility] TST 3 PHYSICIAN PHYSICIAN XERS&/OR S GROUP S GROUP RX CONT ECG W/O I&R RADIOLOGI 07957 EUGENIO EUGENIO C 3 LA LA EXAMINATI ON CHEST SINGLE VIEW FRONTAL ANES 22971 [facility] LOWER 3 ANESTH INTESTINE OF THE BLUE ENDOSCOPY DISTAL DUODENUM COLONOSCO 24317 [facility] PY FLX DX [address] [facility] W/COLLJ INC INC SPEC WHEN [facility] 61144 BESSON BESSON DISCHARGE 3 ANN ANN DAY MANAGEMEN T 30 MIN/< SBSQ 40617 [facility] 3 JR SOLEDAD WALDRON SOLEDAD CARE/DAY 25 MINUTES INITIAL 75948 [facility] SCHUL[facility]AD INPATIENT 3 LUDWIN LUDWIN CONSULT NEW/ESTAB PT 40 MIN SBSQ 22040 [facility] 3 JR SOLEDAD WALDRON SOLEDAD CARE/DAY 25 MINUTES SBSQ 73428 [facility] 3 JR SOLED[facility] ROWE CARE/[place] [address] [place] [address] EUGENIO EUGENIO ABDOMEN & 3 LA LA PELVIS W/CONTRAS T MATERIAL INITIAL 03624 [facility] 3 JR SOLED[facility] ROWE CARE/DAY 50 MINUTES LUMB L0627 DENNIS DENNIS ORTHOSIS 2 [facility] EQUIPME EQUIPME RIGID A&P PANEL PREFAB RADEX 70757 [facility] SPINE 2 MEDICAL LA LUMBOSACR IMAGING AL ASS MINIMUM 4 VIEWS RADIOLOGI 58463 [facility] C EXAM 2 MEDICAL AL CHEST 2 IMAGING VIEWS ASS FRONTAL&L ATERAL RADIOLOGI 86254 [facility] C 2 [facility] EXAMINATI INC INC ON KNEE [address] V[address] [facility] 2 JR SOLEDAD ROWE STICK/TAB LET RGNT NON-AUTO W/O MICRSCP RADEX 20063 [facility] UPPER GI [address] [facility] W/WO INC INC GLUCAGON/ DELAY [place] W/[place] [address] [place] [facility] TRACT 2 MEDICAL LA UPPER IMAGING W/WO ASS DELAYED IM[place] W/[place] [address] [place] [facility] ABDOMINAL 2 MEDICAL LA REAL IMAGING TIME ASS W/IMAGE DOCUMENTA TION DUPLEX 08741 [facility] SCAN 2 [facility] EXTRACRAN INC INC IAL ART COMPL BI STUDY SCREENING G0202 [facility] [address] [facility] H[facility]P MAMMOGRAP INC INC HY NIESHA INCL CAD WHEN PERFORMD COMPUTER- 98328 [facility] AIDED [address] [facility] DETECTION INC INC SCREENING MAMMOGRAP HY LIPID 23256 [facility] PANEL 2 [facility] INC INC BLOOD 95583 [facility] COUNT 2 [facility] COMPLETE INC INC AUTO&AUTO DIFRNTL WBC COMPREHEN 40876 [facility] SIVE 2 [facility] METABOLIC INC INC PANEL PHYSICAL 61734 [facility] THERAPY [address] [facility] HOSP EVALUATIO INC INC N DUPLEX 74259 RELIGION IMAM MOH SCAN 1 CARDIOTHO EXTRACRAN RACIC IAL [place] [address] [facility]IP[facility] [place] SURG 1 SHIRLEY & ALEXUS PATHOLOGY DUBILIER GROSS&[place] EX[place] [address] [facility] INFUSION 1 [facility] THERAPY INC INC PROPHYLAX IS/DX EA HOUR COLSC FLX 70704 Ten ALANIS 1 ANNABELLE MASCORRO W/ZINA CABRERA PSC LESION BY HOT BX FORCEPS ENDOSCOPI 4542 [facility] C 1 [facility] POLYPECTO INC INC MY OF LARGE INTESTINE SCREENING G0202 [place] [facility] 1 MEDICAL LA MAMMOGRAP IMAGING HY NIESHA ASS INCL CAD WHEN PERFORMD COMPUTER- 67007 [place] [facility] AIDED 1 MEDICAL LA DETECTION IMAGING ASS SCREENING MAMMOGRAP HY BLOOD 03606 [facility] COUNT 0 [facility] COMPLETE INC INC AUTO&AUTO DIFRNTL WBC BASIC 17577 [facility] METABOLIC 0 [facility] PANEL INC INC CALCIUM TOTAL LEVEL III 62835 [facility] SURG 0 SHIRLEY & THOMAS PATHOLOGY DUBILIER GROSS&HENRRY ROSCOPIC EXAM DECALCIFI 35985 [facility] CATION 0 SHIRLEY & THOMAS PROCEDURE DUBILIER ARTL 76423 [facility]OSTER CATHJ/CAN 0 [place] THO NULJ ANESTHESI MNTR/WEBER A SFUSION SPX PRQ ANESTHESI 32933 [facility]AN CHR A MAJOR 0 [place] VESSELS ANESTHESI NECK NOS A EEG 71914 FARZANA CARD JOSS NONINTRAC 0 STEPHIE CABRERA RANIAL PSC SURGERY TEAEC 62543 RELIGION IMAM MOH W/PATCH 0 CARDIOTHO GRF RACIC CAROTID SURGI VERTB SUBCLAV NECK INC ECG 99202 [facility] ROUTINE 0 ECG CARDIOLOG W/LEAST Y CONSULT 12 LDS I&R ONLY ANGIOGRAP 29180 [facility] HY 0 RELIGION RELIGION [facility] CEREBRAL BILATERAL RS&I ANGIOGRAP 39827 [facility] HY 0 RELIGION RELIGION [facility] CERVICAL BILATERAL RS&I SLCTV 21399 [facility] CATHJ 1ST 0 RELIGION RELIGION 2ND [facility]D H[facility]P H[facility] SL[facility] 85584 [facility] CENTRAL CATHJ EA 0 RELIGION RELIGION 1ST ORD HOSP HOSP THRC/BRCH /CPHLC BRALH ARTERIOGR 8841 [facility] APHY OF 0 RELIGION RELIGION CEREBRAL HOSP HOSP ARTERIES CREATININ 85308 [facility] E BLOOD 0 RELIGION RELIGION HOSP HOSP PROTHROMB 37943 [facility] IN TIME 0 RELIGION RELIGION HOSP HOSP COLLECTIO 54220 [facility] N VENOUS 0 RELIGION RELIGION BLOOD HOSP [facility] 45841 [facility] DISCHARGE 0 [facility] INTERNAL MANAGEMEN MED T 30 MIN/< SBSQ 47540 [facility] [address] [facility]/DAY INTERNAL 25 MED MINUTES INITIAL 35296 [facility] 0 [facility]/DAY INTERNAL 50 MED MINUTES RADIOLOGI 95579 [place] LORE C EXAM 0 MEDICAL MARK CHEST 2 IMAGING VIEWS ASS FRONTAL&L ATERAL RADIOLOGI 30510 [place] LORE C EXAM 0 MEDICAL MARK CHEST 2 IMAGING VIEWS ASS FRONTAL&L ATERAL [place] ANY 88726 TAO C EUGENIO JT LOWER 0 EUGENIO AL EXTREM W/O CONTRAST MATRL DUPLEX 66799 [place] EUGENIO SCAN 0 MEDICAL LA EXTRACRAN IMAGING IAL ART ASS COMPL BI STUDY COMPREHEN 48260 [facility] SIVE 0 [facility] [address] [facility] THYROID 0 [facility] STIMULATI INC INC NG HORMONE TSH LIPID 20776 [facility] PANEL 0 [facility] INC INC BLOOD 08315 [facility] COUNT 0 [facility] COMPLETE INC INC AUTO&AUTO DIFRNTL WBC CREATINE 33944 [facility] KINASE 0 [facility] TOTAL INC INC FLUORESCE 06209 [facility] NT 0 [facility] NONNFCT INC INC AGT ANTB TITER EA ANTIBODY SCREENING 21007 GEM BECKER, 0 MEDICAL TAO MAMMOGRAP IMAGING HY ASSOCIATE BILATERAL S COMPUTER- 13727 GEM BECKER, AIDED 0 MEDICAL TAO DETECTION IMAGING ASSOCIATE SCREENING S MAMMOGRAP HY CREATININ 64554 [facility] E BLOOD 0 [place] [address] GEM BECKER, ANGIOGRAP 0 MEDICAL TAO HY NECK IMAGING W/CONTRAS ASSOCIATE [place] [address] [facility] UREA 0 [facility] NITROGEN INC INC QUANTITAT ANUPAMA ALPHA-1-A 21961 [facility] NTITRYPSI 0 [facility] N INC INC PHENOTYPE ANTIBODY 01381 [facility] ASPERGILL 0 [facility] US INC INC ALPHA-1-A 59661 [facility] NTITRYPSI 0 [facility] N TOTAL INC INC ANTINUCLE 55519 [facility] AR 0 [facility] ANTIBODIE INC INC S JEAN-PIERRE ANTIBODY 49709 [facility] IDENTIFIC 0 [facility] ATION INC INC LEUKOCYTE ANTIBODIE S ALLERGEN 24877 [facility] SPECIFIC 0 [facility] IGG INC INC NORMA/[place] [address] [facility] THYROID 0 [facility] STIMULATI [place] [address] [facility] GAMMAGLOB 0 [facility] ULIN IGE INC INC COMPLEMEN 54488 [facility] T 0 [facility] FIXATION INC INC TESTS EACH ANTIGEN DUPLEX 10735 GEM BECKER, SCAN 0 MEDICAL TAO EXTRACRAN IMAGING IAL ART ASSOCIATE COMPL BI S STUDY C-REACTIV 42518 [facility] E PROTEIN 0 [facility] HIGH INC INC SENSITIVI TY IMMUNODIF 29435 [facility] FUSION 0 [facility] GEL INC INC DIFFUSION QUAL EA AG/ANTBDY CULTURE 21151 [facility] WUON FNGI 9 [facility] MOLD/YEAS INC INC [place] [address] PATHOLOGY PATHOLOGY SURG 9 & & PATHOLOGY CYTOLOGY CYTOLOGY LAB LAB GROSS&HENRRY ROSCOPIC EXAM CYTP 11311 PATHOLOGY PATHOLOGY SLCTV 9 & & CELL CYTOLOGY CYTOLOGY ENHANCEME LAB LAB [place] INTER[place] XCP[place] [address] [facility] INFUSION 9 [facility] THERAPY INC INC PROPHYLAX IS/DX EA HOUR CUL BACT 84197 [facility] XCPT 9 [facility] URINE INC INC BLOOD/STO OL AEROBIC ISOL CULTURE 99553 [facility] TUBERCLE/ 9 [facility] OTH INC INC ACID-FAST BACILLI ANY ISOL [facility] 63295 [facility] W/BRNCL 9 [facility] [place] [address] [facility] WUON INFUSION 9 [facility] THERAPY/P INC INC ROPHYLAXI S /DX 1ST TO 1 HR SMR PRIM 54730 [facility] SRC 9 [facility] GRAM/GIEM INC INC SA STAIN BCT FUNGI/ADAMA L [facility] 13150 RELIGION FLOWERS INCL 9 CARDIOTHO SOLEDAD FLUOR RACIC GDNCE DX SURGI W/CELL WASHG SPX CLOSED 3324 [facility] BIOPSY OF 9 [facility] [place] [address] [facility] UREA 9 [facility] NITROGEN INC INC QUANTITAT ANUPAMA DETER 11151 [facility] MALDISTRI 9 [facility] BJ OF INC INC INSPIRED GAS N WSHOT CURVE DETER 93508 [facility] CHRISTIANSON AIRWY 9 [facility] CLOSING [facility] VOL 1 PROF SERV BRITANY TSTS BRNCDILAT 79645 [facility] CHRISTIANSON RSPSE 9 [facility] PRE&POST- PROF SERV BRNCDILAT ADMN FUNCTIONA 63053 [facility] CHRISTIANSON L 9 [facility] RESIDUAL [facility] CAPACITY PROF SERV OR RESIDUAL VOLUME CT THORAX 98733 [facility] WALLACE 9 [facility] W/CONTRAS INC INC T MATERIAL 3D 94603 [facility] RENDERING 9 [facility] INC INC W/INTERP& POSTPROC DIFF WORK STATION CREATININ 41508 [facility] E BLOOD 9 [facility] INC INC CREATINE 63129 [facility] KINASE 9 [facility] TOTAL INC INC LIPID 19388 [facility] PANEL 9 [facility] INC INC COMPREHEN 49037 [facility] SIVE 9 [facility] METABOLIC INC INC PANEL RADIOLOGI 87177 [facility] BYRNE EXAM 9 MEDICAL TAO KNEE IMAGING COMPLETE ASSOCIATE 4/MORE S VIEWS RADEX 91473 [facility]uey BECKER ANKLE 9 MEDICAL TAO COMPLETE IMAGING MINIMUM 3 ASSOCIATE VIEWS S RADIOLOGI 92360 [facility] Caal 9 [facility] EXAMINATI INC INC ON KNEE 3 VIEWS RADIOLOGI 43272 [facility] C 9 [facility] EXAMINATI INC INC ON KNEE 1/2 VIEWS RADIOLOGI 16510 [facility] Caal EXAM 9 [facility] BOTH INC INC KNEES STANDING ANTEROPOS T RADIOLOGI 36220 Ten ALEXANDRA EXAM 9 MEDICAL TAO CHEST 2 IMAGING VIEWS ASSOCIATE FRONTAL&L S ATERAL RADIOLOGI 72296 [facility] C EXAM 9 [facility] CHEST 2 INC INC VIEWS FRONTAL&L ATERAL IAADI 05041 [facility] INFFLUENZ 9 [facility] A A VIRUS INC INC IAADI 11297 [facility] INFLUENZA 9 [facility] B VIRUS INC INC COMPUTER- 16853 [place] FAB TORREZ 9 MEDICAL HARMAN P DETECTION IMAGING ASSOCIATE SCREENING S MAMMOGRAP HY SCREENING 04289 [place] Marty TORREZ MEDICAL HARMAN P MAMMOGRAP IMAGING HY ASSOCIATE BILATERAL S CT PELVIS 59354 [facility] CLAREMOREHermelinda CRUZ MEDICAL HARMAN P W/CONTRAS IMAGING T ASSOCIATE MATERIAL S 3D 98954 [facility] RENDERING 8 [facility] INC INC W/INTERP& [place] [address] GEM LORE, ABDOMEN 8 MEDICAL HARMAN P W/CONTRAS IMAGING T ASSOCIATE MATERIAL S CREATININ 50268 [facility] Tovar BLOOD 8 [place] [address] [facility] UREA 8 [facility] NITROGEN INC INC QUANTITAT ANUPAMA GASTRIC 53338 GEM EUGENIO, EMPTYING 8 MEDICAL TAO IMAGING [place] [address] [facility] AMYLASE 8 [facility] INC INC COMPREHEN 80918 [facility] SIVE 8 [facility] METABOLIC INC INC PANEL BLOOD 20981 [facility] COUNT 8 [facility] COMPLETE INC INC AUTO&AUTO DIFRNTL WBC RADEX ABD 86045 [facility] COMPL 8 [facility] AQT ABD INC INC W/S/E/D VIEWS 1 [place] [address] [facility] LIPASE 8 [facility] INC INC WRIST L3908 [facility] HAND 8 BRACE BRACE ORTHOSIS PROSTH PROSTH EXT INC INC CONTROL COCK-UP PREFAB LUMB L0627 [facility] ORTHOSIS 8 BRACE BRACE SAGIT PROSTH PROSTH CNTRL INC INC RIGID A&P PANEL PREFAB [place] NFS 02191 [facility] THER 8 [facility] PROPH/DX INC [place] 1ST >1 [place] [address] PATHOLOGY PATHOLOGY SURG 8 & & PATHOLOGY CYTOLOGY CYTOLOGY LAB LAB GROSS&HENRRY ROSCOPIC EXAM EGD 23587 [place] JEFFERY, TRANSORAL 8 MEDICAL SANTHOSH BIOPSY SERV SINGLE/MU FOUNDATIO LTIPLE SPECIAL 24029 PATHOLOGY PATHOLOGY STAIN 8 & & GROUP 1 CYTOLOGY CYTOLOGY MICROORGA LAB LAB [facility] I&R SPCL STN 96174 PATHOLOGY PATHOLOGY 2 I&R 8 & & EXCPT CYTOLOGY CYTOLOGY MICROORG/ LAB LAB ENZYME/IM CYT CUL 79474 [facility] PRSMPTV 8 [facility] PTHGNC INC INC ORGANISMS SCR DNS CHART ESOPHAGOG 4516 [facility] ASTRODUOD 8 [facility] ENOSCOPY INC INC WITH CLOSED BIOPSY US SOFT 55748 [facility] TISSUE 8 [facility] HEAD & INC INC NECK REAL TIME IMGE DOCM APPL 56264 [facility] MODALITY 8 [facility] 1/> AREAS INC INC VASOPNEUM ATIC DEVICES APPL 87985 [facility] MODALITY 8 [facility] 1/> AREAS INC INC ELEC STIMJ UNATTENDE D THERAPEUT 51624 [facility] IC PX 1/> 8 [facility] AREAS INC INC EACH 15 MIN EXERCISES PHYSICAL 06770 [facility] THERAPY 8 [facility] [place] [address] [facility] 1/> AREAS 8 [facility] EACH 15 INC INC MIN NEUROMUSC REEDUCA CYTP 04485 AMERIPATH MONY, CERV/VAG 8 [place] INC FRANCISCO JAVIER E AUTO THIN LAYER PREP MNL SCREEN COMPREHEN 74421 [facility] SIVE 8 [facility] [place] [address] [facility] THYROID 8 [facility] STIMULATI INC INC NG HORMONE TSH BLOOD 47271 [facility] COUNT 8 [facility] COMPLETE INC INC AUTO&AUTO DIFRNTL WBC LIPID 33992 [facility] PANEL 8 [facility] INC INC Encounters Encounter Start End Date Code Location Performer Type Date OFFICE 82948 MIMI SALGADO OUTPATIEN 7 7 [place] T VISIT ORTHOPAED 15 IC MINUTES OFFICE 32987 [facility] HALI OUTPATIRAÚL 7 7 K[place] T VISIT INTERNAL 15 MED MINUTES [facility] - 7 7 [facility] OUTPATIEN INC T OFFICE 86966 ANITA GILLESPIE OUTPATIEN 7 7 MD ROSA, T VISIT PSC 15 MINUTES OFFICE 20289 [facility] OUTPATIEN 7 7 [facility] T VISIT INC 10 MINUTES [facility] - 7 7 [facility] OUTPATIEN INC T [facility] - 7 7 [facility] OUTPATIEN INC T [facility] - 7 7 [facility] OUTPATIEN INC T OFFICE 23114 ANITACHRIS LEE OUTPATIEN 7 7 MD ROSA, T VISIT PSC 10 MINUTES [facility] - 7 7 [facility] OUTPATIEN INC [facility] - 7 7 [facility] OUTPATIEN INC T OFFICE 75358 ANITA GILLESPIE OUTPATIEN 7 7 MD ROSA, T VISIT PSC 15 MINUTES [facility] - 7 7 [facility] OUTPATIEN INC T OFFICE 19386 [facility] OUTPATIEN 7 7 [facility] T VISIT 5 INC MINUTES [facility] - 7 7 [facility] OUTPATIEN INC [facility] - 7 7 [facility] OUTPATIEN INC [facility] - 7 7 [facility] OUTPATIEN INC T EMERGENCY 33259 [facility] DEPT 6 6 [facility] VISIT INC HIGH SEVERITY& THREAT [facility] - 6 6 [facility] OUTPATIEN INC T OFFICE 63785 [facility] MANDUJANO MIS OUTPATIEN 6 6 KENDRICK T VISIT INTERNAL 25 MED MINUTES OFFICE 97908 [place] BESSON OUTPATIEN 6 6 [facility] VISIT INTERNAL 15 MED MINUTES EMERGENCY 70717 DULCE MALDONADO 6 6 PHYSICIAN [facility] DEPARTMEN S, [facility] T VISIT HIGH/URGE NT SEVERITY [facility]OSPITAL [facility] - 6 6 [facility] OUTPATIEN INC T EMERGENCY 58565 [facility] 6 6 [facility] DEPARTMEN INC T VISIT LOW/MODER SEVERITY OFFICE 09193 [facility] VERGARA OUTPATIEN 6 6 PHYSICIAN TU T VISIT S GROUP 15 MINUTES OFFICE 29705 [place] BESSON OUTPATIEN 6 6 [facility] T VISIT INTERNAL 25 MED MINUTES OFFICE 42937 [facility] 6 6 N T VISIT NEUROLOGY 10 MINUTES OFFICE 10518 [facility] CONSULTAT 6 6 N ION NEUROLOGY NEW/ESTAB PATIENT 60 MIN HOSPITAL [facility] - 6 6 RELIGION OUTPATIEN HOSP T OFFICE 09333 [place] BESSON OUTPATIEN 5 5 [facility]EN[facility] ANN T VISIT INTERNAL 25 MED MINUTES [facility]ERGENCY 65876 [facility] 5 EMERGENCY GREG VISIT PHYS PSC HIGH SEVERITY& THREAT FUN [facility]OSPITAL [facility] - 5 5 [facility] OUTPATIEN INC T EMERGENCY 43633 [facility] 5 5 [facility] DEPARTMEN INC T VISIT LOW/MODER SEVERITY EMERGENCY 90111 DULCE MALDONADO DEPT 5 5 PHYSICIAN HENRRY VISIT S, PLLC HIGH SEVERITY& THREAT FUNCJ OFFICE 94409 [place] BESSON OUTPATIEN 5 5 [facility] ANN T VISIT INTERNAL 15 MED MINUTES HOSPITAL [facility] - 5 5 [facility] INPATIENT INC EMERGENCY 35191 [facility] DEPT 5 5 PHYSICIAN HENRYR VISIT S, PLLC HIGH SEVERITY& THREAT FUNCJ OFFICE 89026 [place] BESSON OUTPATIEN 5 5 KENDR[facility] ANN T VISIT INTERNAL 15 MED MINUTES EMERGENCY 79386 DULCE [facility] 5 5 PHYSICIAN HENRRY DEPARTMEN S, [facility] T VISIT HIGH/URGE NT SEVERITY HOSPITAL [facility] - 5 5 [facility] OUTPATIEN INC T OFFICE 18963 [place] BESSON OUTPATIEN 5 5 [facility] ANN T VISIT INTERNAL 15 MED MINUTES EMERGENCY 76165 DULCE AVELAR DEPT 5 5 PHYSICIAN LUEVANO VISIT S, PLLC HIGH SEVERITY& THREAT FUNCJ OFFICE 38125 SHAMIKA LEE BUX ANJ OUTPATIEN 5 5 MD T NEW 30 MINUTES [facility] 5 5 [facility] OUT[facility] T OFFICE 29845 [facility] FALLUJI CONSULTAT 5 5 [facility] ION MEDICAL NEW/ESTAB G PATIENT 60 MIN OFFICE 22466 [facility] CHOLO TOD OUTPATIEN 5 5 PHYSICIAN T VISIT S GROUP 15 MINUTES HOSPITAL [facility] - 5 5 [facility] OUTPATIEN INC T OFFICE 03490 [facility] LO[facility] TRA OUTPATIEN 5 5 [place] T VISIT ORTHOPAED 15 [facility] - 5 5 [facility] OUTPATIEN INC T OFFICE 58578 [facility] CHOLO TOD CONSULTAT 5 5 PHYSICIAN ION S GROUP NEW/ESTAB PATIENT 60 MIN OFFICE 49536 [facility] BESSON OUTPATIEN 5 5 [facility] ANN T VISIT INTERNAL 15 MED MINUTES OFFICE 49090 [facility] LO[facility] TRA OUTPATIEN 5 5 [place] T VISIT ORTHOPAED 15 [facility] - 5 5 [facility] OUTPATIEN INC [facility] - 5 5 [facility]PATIEN [facility] - 5 5 [facility] OUTPATIEN INC T OFFICE 91173 [facility] CAMERON OUTPATIEN 5 5 [facility] 20 HOSPITAL MINUTES [facility] - 5 5 [facility] OUTPATIEN INC T OFFICE 45115 [facility] LOZADA TRA CONSULTAT 5 5 [place] ION ORTHOPAED NEW/ESTAB [facility] PATIENT 60 MIN OFFICE 65069 [place] BESSON OUTPATIEN 5 5 [facility] T VISIT INTERNAL 25 MED MINUTES [facility]OSPITAL [facility] - 5 5 [facility] OUTPATIEN INC T OFFICE 61874 JAI VERGARA OUTPATIEN 4 4 T NEW 30 MINUTES OFFICE 07109 [place] BESSON OUTPATIEN 4 4 [facility] ANN T VISIT INTERNAL 25 MED MINUTES OFFICE 18343 MOOSE VIRK OUTPATIEN 4 4 ROHAN ROHAN T VISIT 25 MINUTES OFFICE 28232 DIEGO WEBB OUTPATIEN 4 4 MEDICAL N CHR T VISIT SERV 15 FOUNDATIO MINUTES N OFFICE 19289 UNIVERSIT OUTPATIEN 4 4 Y T VISIT 5 HOSPITAL [facility] UNIVERSIT - 4 4 Y OUTPATIEN HOSPITAL T OFFICE 68967 [facility] RENDON CONSULTAT 4 4 ANN ANN ION NEW/ESTAB PATIENT 40 MIN OFFICE 78911 PETTEY PETTEY OUTPATIEN 4 4 JAM JAM T NEW 30 MINUTES OFFICE 30644 ADRIEL HAM ADRIEL HAM OUTPATIEN 4 4 T NEW 45 MINUTES OFFICE 53630 BESSON BESSON OUTPATIEN 4 4 ANN ANN T VISIT 15 MINUTES OFFICE 64234 ELIZABETH JOHNSON OUTPATIEN 4 4 AUDRA AUDRA T VISIT 15 MINUTES HOSPITAL [facility] - 3 3 [facility] OUTPATIEN INC T PERIODIC 04792 ELIZABETH JOHNSON PREVENTIV 3 3 AUDRA AUDRA E MED EST PATIENT 40-64YRS OFFICE 23496 ADIS ADIS OUTPATIEN 3 3 JR LA JR AL T VISIT 15 MINUTES HOSPITAL [facility] - 3 3 [facility] OUTPATIEN INC T OFFICE 93997 MCKEMIE MCKEMIE OUTPATIEN 3 3 JR SOLEDAD WALDRON SOLEDAD T VISIT 15 MINUTES OFFICE 57997 MCKEMIE MCKEMIE OUTPATIEN 3 3 JR SOLEDAD ROWE T VISIT 15 MINUTES Inpatient NORA Lal MD (IN) 3 12:54 3 08:20 [facility] EMERGENCY 34042 O'RACHELLE O'RACHELLE DEPT 3 3 CLAIRE CLAIRE VISIT HIGH SEVERITY& THREAT FUNCJ OFFICE 34406 MCKEMIE MCKEMIE OUTPATIEN 3 3 JR SOLEDAD ROWE T VISIT 15 MINUTES Emergency NIKKO Maldonado MD (ER) 3 18:31 3 20:05 [facility] - 3 3 [facility] OUTPATIEN INC T EMERGENCY 04966 DENISSE MALDONADO 3 3 HENRRY HENRRY DEPARTMEN T VISIT MODERATE SEVERITY EMERGENCY 68514 [facility] 3 3 [facility] DEPARTMEN INC T VISIT LOW/MODER SEVERITY [facility]OSPITAL [facility] - 3 3 [facility] OUTPATIEN INC T EMERGENCY 19744 SUSHIL EUBANKS DEPT 3 3 EMERGENCY VISIT SERVICES HIGH SEVERITY& THREAT FUNCJ OFFICE 53091 MCKEMIE MCKEMIE OUTPATIEN 2 2 JR SOLEDAD ROWE T VISIT 15 MINUTES EMERGENCY 23008 SUSHIL EUBANKS 2 2 EMERGENCY DEPARTMEN SERVICES T VISIT HIGH/URGE NT SEVERITY [facility]OSPITAL [facility] - 2 2 [facility] OUTPATIEN INC T OFFICE 20377 MCKEMIE MCKEMIE OUTPATIEN 2 2 JR SOLEDAD WALDRON SOLEDAD T VISIT 15 MINUTES OFFICE 17245 MCKEMIE MCKEMIE OUTPATIEN 2 2 JR SOLEDAD ROWE T VISIT 10 MINUTES HOSPITAL [facility] - 2 2 [facility] OUTPATIEN INC T OFFICE 63140 WHANG VALERIA WHANG VALERIA OUTPATIEN 2 2 T VISIT 10 MINUTES [facility] - 2 2 [facility] OUTPATIEN INC [facility] - 2 2 [facility] OUTPATIEN INC T OFFICE 54892 MCKEMIE MCKEMIE OUTPATIEN 2 2 JR SOLEDAD ROWE T VISIT 15 MINUTES OFFICE 74500 MCKEMIE MCKEMIE OUTPATIEN 2 2 JR SOLEDAD ROWE T VISIT 15 MINUTES HOSPITAL [facility] - 2 2 [facility] OUTPATIEN INC T OFFICE 17289 MCKEMIE MCKEMIE OUTPATIEN 2 2 JR SOLEDAD ROWE T VISIT 15 MINUTES [facility]OSPITAL [facility] - 1 1 [facility] OUTPATIEN INC T OFFICE 47495 [place] MCKEMIE OUTPATIEN 1 1 YAHAIRA ROWE T VISIT INTERNAL 15 MED MINUTES OFFICE 48354 C TYLER ALANIS OUTPATIEN 1 1 ANNABELLE Espinosa VISIT [facility] 10 MINUTES OFFICE 14732 RELIGION IMAM MOH OUTPATIEN 1 1 CARDIOTHO T VISIT RACIC 10 SURGI MINUTES HOSPITAL [facility] - 1 1 [facility] OUTPATIEN INC T OFFICE 23993 C TYLER ALANIS CONSULTAT 1 1 ANNABELLE MORSE MD [facility] NEW/ESTAB PATIENT 60 MIN OFFICE 68843 [facility] MCKEMIE OUTPATIEN 1 1 YAHAIRA ROWE T VISIT INTERNAL 15 MED MINUTES [facility]OSPITAL [facility] - 1 1 [facility] OUTPATIEN INC T OFFICE 05727 [facility] BESSON OUTPATIEN 0 0 YAHAIRA JUAREZ T VISIT INTERNAL 15 MED MINUTES EMERGENCY 60003 SUSHIL GARCIA 0 0 EMERGENCY HENRRY VISIT SERVICES HIGH SEVERITY& THREAT FUNCJ EMERGENCY 79026 [facility] 0 0 [facility] DEPARTMEN INC T VISIT MODERATE SEVERITY [facility] - 0 0 [facility] OUTPATIEN INC T OFFICE 55932 RELIGION IMAM MOH OUTPATIEN 0 0 CARDIOTHO T VISIT RAC 10 SURGI MINUTES HOSPITAL [facility] - 0 0 RELIGION OUTPATIEN HOSP T OFFICE 42554 RELIGION IMAM MOH OUTPATIEN 0 0 CARDIOTHO T VISIT RAC 10 SURGI MINUTES EMERGENCY 81167 SUSHIL LEAL 0 0 [facility] DEPART[facility] SERVICES T VISIT HIGH/URGE NT SEVERITY OFFICE 62192 [facility] PETTEY CONSULTAT 0 0 PHYSICIAN KERWIN MCKEON NEW/ESTAB PATIENT 60 MIN OFFICE 10614 [facility] BESSON OUTPATIEN 0 0 [facility] T VISIT INTERNAL 15 MED MINUTES HOSPITAL [facility] - 0 0 [facility] OUTPATIEN [facility] T OFFICE 69028 [place] BESSON OUTPATIEN 0 0 [facility] T VISIT INTERNAL 25 MED MINUTES [facility] - 0 0 [facility] OUTPATIEN [facility] T [facility] - 0 0 [facility] OUTPATIEN [facility] T [facility] - 0 0 [facility] OUTPATIEN [facility] T OFFICE 40262 RELIGION FLOWERS OUTPATIEN 0 0 CARDIOTHO SOLEDAD T VISIT RACIC 10 SURGI MINUTES OFFICE 69924 [place] MCKEMIE OUTPATIEN 0 0 [facility], T VISIT INTERNAL SHRUTHI F 15 MED MINUTES [facility] - 0 0 [facility] OUTPATIEN [facility] T [facility]OSP[facility] - 0 0 [facility] OUTPATIEN INC T OFFICE 85315 RELIGION LIONEL OUTPATIEN 9 9 CARDIOTHO SOLEDAD T VISIT RACIC 10 SURGI MINUTES [facility]OSPITAL [facility] - 9 9 [facility] OUTPATIEN INC T OFFICE 75920 [facility] FLOWERS, OUTPATIEN 9 9 LAILA Francis T VISIT 10 MINUTES [facility] - 9 9 [facility] OUTPATIEN INC T OFFICE 13527 [facility] FLOWERS, CONSULTAT 9 9 LAILA Francis ION NEW/ESTAB PATIENT 40 MIN OFFICE 21900 [place] BARB OUTPATIEN 9 9 Jesús SYED JR VISIT INTERNAL SHRUTHI 15 [facility] T OFFICE 12837 [place] BAR[facility] OUTPATIEN 9 9 Jesús SYED JR VISIT INTERNAL SHRUTHI F 15 [facility] T OFFICE 40931 YOGI BASS 9 9 MEDICAL KIRA D ION SERV NEW/ESTAB FOUNDATIO PATIENT 40 MIN [facility] T EMERGENCY 35130 [facility] 9 9 [facility] DEPARTMEN INC T VISIT MODERATE SEVERITY EMERGENCY 87067 KEVIN MALDONADO, 9 9 [facility] ON HIGH/URGE NT SEVERITY [facility] T OFFICE 96487 [place] YOSELYN SZYMANSKI 9 9 YAHAIRA Espinosa VISIT INTERNAL 15 MED MINUTES OFFICE 07867 [place] BARB LOCOPATIEN 8 8 Jesús SYED JR VISIT INTERNAL SHRUTHI F 15 MED MINUTES OFFICE 32350 YOSELYN FARRIS 8 8 [facility] T VISIT SERV 15 FOUNDATIO MINUTES [facility] T OFFICE 17610 YOSELYN FARRIS 8 8 [facility] T VISIT SERV 25 FOUNDATIO MINUTES [facility] T OFFICE 79416 DIEGO GIL CONSULTANA 8 8 [facility] ION SERV NEW/ESTAB FOUNDATIO PATIENT 60 MIN [facility] T EMERGENCY 77923 [facility] 8 8 [facility] DEPARTMEN [facility] T VISIT MODERATE SEVERITY OFFICE 29048 YOSELYN FARRIS 8 8 [facility] T VISIT SERV 15 FOUNDATIO MINUTES [facility] T OFFICE 57125 YOGI FARRIS 8 8 [facility] ION SERV NEW/ESTAB FOUNDATIO PATIENT 60 MIN OFFICE 09594 [place] BARB OUTPATIEN 8 8 Jesús SYED JR VISIT INTERNAL SHRUTHI F 15 MED MINUTES [facility] T OFFICE 32200 [place] NESSA OUTPATIEN 8 8 YAHAIRA Espinosa VISIT INTERNAL 25 MED MINUTES [facility] 75546 [facility] 8 8 [facility] EST CLINIC OF PATIENT [id number] [facility] OFFICE 45733 [place] BARB OUTPATIEN 8 8 Jesús SYED JR VISIT INTERNAL SHRUTHI F 15 MED MINUTES [facility] 8 8 [facility] T OFFICE 81051 YOSELYN HADDAD 8 8 YAHAIRA Espinosa VISIT INTERNAL 15 MED MINUTES OFFICE 64529 YOESLYN HADDAD 8 8 YAHAIRA Espinosa VISIT INTERNAL 25 MED MINUTES
--- OUTSIDE RECORDS SUMMARY | 2017-08-22 00:02 | External Medical Summary Rpt | CCD ---
Author Author , JARROD Organization JARROD Address Unknown Phone [email or web address] Care Team Providers Care Rn Intern Name Role Phone CAMERONJEANNETTE GUZMÁN, CAMERON Unavailable [...] NATHANIEL LEO, NATHANIEL Unavailable Unavailable LEO [facility], Unavailable Unavailable [facility] Un[facility] Unavailable INC, [facility] Unavailable Unavailable [facility], [facility] Unavailable Unavailable [facility], [facility] & Unavailable [...] OF Unavailable Unavailable [facility], [facility] COOK, COOK Unavailable Unavailable EUGENIO LA, Unavailable Unavailable EUGENIO LA EUGENIO LA, Unavailable Unavailable EUGENIO LA EUGENIO, TAO, Unavailable Unavailable EUGENIO, TAO CORINA RAIMUNDO, CORINA Unavailable Unavailable RAIMUNDO MANDUJANO MIS, MANDUJANO MIS Unavailable Unavailable ALBERT OVIDIO, ALBERT OVIDIO Unavailable Unavailable DUFF, DUFF Unavailable Unavailable [facility] [place]available [place], [facility] [place] [facility] Un[place] Un[place], [facility] [place] FALLUJI ROM, FALLUJI Unavailable Unavailable ROM FAUGHN LUEVANO, FAUGHN Unavailable Unavailable LUEVANO ELIZABETH AUDRA, Unavailable Unavailable ELIZABETH AUDRA ELIZABETH AUDRA, Unavailable Unavailable ELIZABETH AUDRA BEAN CHR, BEAN CHR Unavailable Unavailable DENISSE HENRRY, DENISSE Unavailable Unavailable HENRRY DENISSE, SHANNAN S, Unavailable Unavailable SHANNAN MALDONADO S [facility], Unavailable Unavailable [facility] Unavailable Unavailable [facility], [facility] Unavailable Unavailable MEDICAL, [facility] Unavailable Unavailable INC, [facility] Unavailable Unavailable HOSPITAL P, [facility] LUDIN SZYMANSKI HARVEY, Unavailable Unavailable LUDIN [facility], Unavailable Unavailable [facility] LOZADA TRA, LOZADA TRA Unavailable Unavailable IMAM MOH, IMAM MOH Unavailable Unavailable VINCENT THOMAS, VINCENT Unavailable Unavailable THOMAS MONTANO SHANNON, MONTANO Unavailable Unavailable SHANNON MONTANO SHANNON, MONTANO Unavailable Unavailable SHANNON LEAL CHA, MEL Unavailable Unavailable FAUSTO SALGADO, SALGADO Unavailable Unavailable STEPHIE OJSS, STEPHIE JOSS Unavailable Unavailable [facility] Un[facility], [facility] Unavailable Unavailable MEDICAL G, [facility] TOSHIA THO, TOSHIA THO [...] HEART Unavailable Unavailable SPECIALISTS,, [facility], [facility] Unavailable Unavailable INTERNAL MED, [facility] DOUGHERTY ALEXUS, DOUGHERTY Unavailable Unavailable ALEXUS SHAMIKA HERNANDEZ MD Unavailable Unavailable KIRA GENAO MD, MAIR, Unavailable Unavailable KIRA Russell ADRIEL HAM, ADRIEL HAM Unavailable Unavailable ADRIEL HAM, ADRIEL HAM Unavailable Unavailable [facility] Unavailable Unavailable SERVICES, [facility] MCKEMIE JR [facility], Unavailable Unavailable [...] Unavailable ANG ARMENDARIZ [facility], ARMENDARIZ Unavailable Unavailable SOLEADD ARMENDARIZ [facility], ARMENDARIZ Unavailable Unavailable [facility] OLIVER ADA, OLIVER ADA Unavailable Unavailable OLIVER CALYL, OLIVER CALLY Unavailable Unavailable [facility] Unavailable Unavailable [facility], [facility] CHARIS ANAHI, CHARIS Unavailable Unavailable ANAHI CHARIS ANAHI, CHARIS Unavailable Unavailable ANAHI MONYFRANCISCO JAVIER HAWKINS E, Unavailable Unavailable FRANCISCO JAVIER SYKES E [facility], Unavailable Unavailable [facility] Kendrick Lal MD, Unavailable Unavailable Kendrick Lal MD [facility], Unavailable Unavailable [facility] CHRIS MOURA, Unavailable Unavailable CHRIS MOURA, Unavailable Unavailable CHRIS Christianson MD, Unavailable Unavailable Monica Christianson MD [facility] # Unavailable Unavailable [id number], [facility] # [id number] [place] ANAHI, Unavailable Unavailable KARLY EUBANKS, TICO EUBANKS Unavailable Unavailable MERDAVID VALERIA, MERDAVID VALERIA Unavailable Unavailable Purpose Continuity of Care Document - 12-02-2007 through 2016 Problems Code Diagnosis DOS Provider Status M545 LOW BACK 04-27-2017 [facility] R300 DYSURIA 03-24-2017 [facility] [id number] SPONDYLOSIS 03-03-2017 ANITA LEE, W/O , PSC MYELOPATH/R ADICULOPATH Y LUMB RGN 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 [id number] OTHER LONG 02-24-2017 [facility] TERM [facility] [...] MEM HOSP HYPERTENSIO INC N I2510 ASHD KARUK 12-31-2016 [facility] CORONARY [facility] ARTERY W/O INC ANGINA PECTORIS I739 PERIPHERAL 12-31-2016 [facility] VASCULAR [facility] DISEASE INC UNSPECIFIED M461 SACROILIITI 12-30-2016 [facility] S NOT [facility] ELSEWHERE INC CLASSIFIED I200 UNSTABLE 11-26-2016 [facility] ANGINA [facility] INC I209 ANGINA 11-26-2016 [facility]IS PHYSICIANS UNSPECIFIED GROUP 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 [facility] INSUFFICIEN CY I6523 OCCLUSION & 11-26-2016 [facility] STENOSIS [facility] BILATERAL IMAGING ASS CAROTID ARTERIES R0602 SHORTNESS 11-26-2016 [facility] OF BREATH [facility] INC Z955 PRESENCE OF 11-26-2016 [facility] CORONARY [facility] ANGIOPLASTY INC IMPLANT & GRAFT J449 CHRONIC 11-04-2016 [facility] OBSTRUCTIVE [facility]ICAL PULMONARY IMAGING ASS DISEASE UNS J9811 ATELECTASIS 11-04-2016 [facility] R05 COUGH 11-04-2016 [facility] R079 CHEST PAIN 11-04-2016 [facility] UNSPECIFIED [facility] IM[facility]ING ASS I129 HYPERTENSIV 11-03-2016 [facility] Tovar CKD [facility] W/STAGE 1-4 HOSPITAL P CKD OR UNS CKD N189 CHRONIC 11-03-2016 [facility] KIDNEY [facility] DISEASE INC UNSPECIFIED Z720 TOBACCO USE 11-03-2016 [facility] K5900 CONSTIPATIO 08-27-2016 [facility] N [facility] UNSPECIFIED INTERNAL MED N390 URINARY 08-27-2016 [facility] TRACT [facility] INFECTION INTERNAL SITE NOT MED SPECIFIED R102 PELVIC AND 08-27-2016 [facility] PERINEAL [facility] PAIN INTERNAL MED Z25256 ENCOUNTER 08-27-2016 [facility] GENERAL RTN W/O ABNORMAL FIND Z124 ENCOUNTER 08-27-2016 [facility] OTHER [facility] SCREENING INTERNAL MALIG MED NEOPLASM CERVIX F90003 PERSONAL 08-27-2016 [facility] HISTORY OF VALLEY COLONIC INTERNAL POLYPS MED Z1231 ENCOUNTER 08-26-2016 [facility] SCREENING [facility]ICAL MAMMO MALIG IMAGING ASS NEOPLASM BREAST Z5181 ENCOUNTER 08-05-2016 [facility] THERAPEUTIC LA DRUG LEVEL MONITORING R51 HEADACHE 06-11-2016 [facility] INTERNAL MED K219 GASTRO-ESOP 05-29-2016 [facility] REFLUX [facility] DISEASE INC WITHOUT ESOPHAGITIS L723 SEBACEOUS 05-29-2016 [facility] CYST [facility] INC L729 FOLLICULAR 05-29-2016 [facility]ST [facility], SKIN & SUBQ PLLC TISSUE UNS H6123 IMPACTED 03-20-2016 [facility] CERUMEN PHYSICIANS BILATERAL GROUP H6523 CHRONIC 03-20-2016 [facility] SEROUS PHYSICIANS OTITIS GROUP MEDIA BILATERAL G8929 OTHER 03-17-2016 [facility] CHRONIC [facility] PAIN INTERNAL MED R109 UNSPECIFIED 03-17-2016 [facility] ABDOMINAL [facility] PAIN INTERNAL MED G250 ESSENTIAL 01-23-2016 [facility] R202 PARESTHESIA 01-23-2016 [facility] K269 DUOD ULCR 11-12-2015 [facility] UNS AC SURGIAL OR CHRON ASSOCIATE W/O HEMORR OR PERF K3189 OTHER 11-12-2015 [facility] DISEASES OF SURGIAL STOMACH ASSOCIATE AND DUODENUM K319 DISEASE OF 11-12-2015 [facility] DUODENUM DUBILIER UNSPECIFIED R0789 OTHER CHEST 11-12-2015 [facility] PAIN SURGIAL ASSOCIATE R1013 EPIGASTRIC 11-12-2015 [facility] R634 ABNORMAL 11-12-2015 [facility] WEIGHT LOSS [...] 09-02-2015 [facility], NEURITIS PLLC UNSPECIFIED P91243 PAIN IN 09-02-2015 [facility] LEFT LOWER MEDICAL LEG [facility] ASS S85413 PAIN IN 09-02-2015 [facility] LEFT FOOT PHYSICIANS, PLLC X71370Z UNSPECIFIED 09-02-2015 [facility] INJURY [facility]ICAL LEFT FOOT IMAGING ASS INITIAL ENCOUNTER H524 PRESBYOPIA 08-09-2015 SCIF[facility] ANG 62036 INTESTINAL 07-20-2015 [facility] INFECTIONS IDANHA DUE INTERNAL CLOSTRIDIUM MED DIFFICILE 28001 DEHYDRATION 07-08-2015 [facility] INC 07233 CORONARY 07-08-2015 [facility] ATHEROSCLER [facility] OSIS KARUK INC CORONARY ARTERY 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 07-08-2015 [facility] [...] 07-07-2015 [facility] KIDNEY PHYS[facility]ANS, FAILURE PLLC UNSPECIFIED 73973 ABDOMINAL 07-07-2015 [facility] PAIN, MEDICAL GENERALIZED IMAGING ASS 7823 EDEMA 07-02-2015 [facility] INTERNAL MED 5180 PULMONARY 06-30-2015 [facility] COLLAPSE [facility] 84664 SWELLING OF 06-30-2015 [facility]B [facility] 5952 OTHER 06-19-2015 [facility] 5989 UNSPECIFIED 06-19-2015 [facility] P 63231 URINARY 06-19-2015 [facility] [place] P 66857 OTHER 06-19-2015 [facility] ABNORMALITY ANESTH OF OF THE BLUE URINATION 84096 OTHER 06-04-2015 [facility] CHRONIC [facility] PAIN INTERNAL MED 4019 UNSPECIFIED 06-04-2015 [facility] ESSENTIAL VAL[facility] HYPERTENSIO INTERNAL N MED 15311 INSOMNIA 06-04-2015 [facility] UNSPECIFIED VALLEY INTERNAL MED 496 CHRONIC 05-29-[address] [facility] [address] [facility] OBSTRUCTION INTERNAL NEC MED 5609 UNSPECIFIED 05-29-2015 [facility] INTESTINAL [facility] INTERNAL OBSTRUCTION MED 17341 DEGEN 2015 SHAMIKA LEE LUMBAR/LUMB OSACRAL INTERVERTEB RAL DISC 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 2015 SHAMIKA TERRY MD NEURITIS/RA DICULITIS UNSPEC 7873 FLATULENCE 2015 [facility] ERUCTATION [facility]ICAL AND GAS IMAGING ASS PAIN 48671 ABDOMINAL 2015 [facility] PAIN, MEDICAL UNSPECIFIED IMAGING ASS SITE 4168 OTHER 05-15-2015 [facility] CHRONIC HEALTH PULMONARY MEDICAL G HEART DISEASES 4240 MITRAL 05-15-2015 [facility] VALVE HEALTH DISORDERS MEDICAL G 4242 TRICUSPID 05-15-2015 [facility] VALVE HEALTH DISORDERS MEDICAL G SPEC NONRHEUMATI C 92013 CHEST PAIN 05-15-2015 [facility] UNSPECIFIED HEALTH MEDICAL G 62734 OTHER CHEST 05-02-2015 [facility] PAIN HEALTH MEDICAL G V7281 PRE-OPERATI 05-02-2015 [facility] HEALTH CARDIOVASCU MEDICAL G LAR EXAMINATION 7936 NONSPEC ABN 04-25-2015 [facility] FINDNG RAD PHYSICIANS & OTH EXAM GROUP ABDOMINAL AREA 15245 OTHER 04-25-2015 [facility] ABNORMAL PHYSICIANS FINDING GROUP RADIOLOGICA L EXAM BREAST 5768 OTHER 04-10-2015 [facility] SPECIFIED MEDICAL DISORDERS IMAGING ASS OF BILIARY TRACT 7242 LUMBAGO 03-29-2015 [facility] [place] [facility] 7906 OTHER 03-28-2015 [facility] ABNORMAL [facility] BLOOD INC CHEMISTRY 7881 DYSURIA 02-15-2015 [facility] 74190 ABDOMINAL 02-15-2015 [facility] PAIN OTHER MEDICAL SPECIFIED IMAGING ASS SITE 7245 UNSPECIFIED 02-07-2015 [facility] BACKACHE [facility] INC V571 OTHER 02-07-2015 [facility] PHYSICAL [facility] THERAPY INC 90691 UNSPECIFIED 02-06-2015 [facility] 3384 CHRONIC 11-20-2014 [facility] PAIN VALLEY SYNDROME INTERNAL MED 64228 OSTEOARTHRO 11-20-2014 [facility] S UNSPEC VALLEY WHETHER INTERNAL GEN/LOC MED UNSPEC SITE 7213 LUMBOSACRAL 11-20-2014 [facility] SPONDYLOSIS IMAGING ASS WITHOUT MYELOPATHY V7612 OTHER 11-20-2014 [facility] SCREENING MEDICAL MAMMOGRAM IMAGING ASS 3831 CHRONIC 09-21-2014 JAI TU MASTOIDITIS 4760 CHRONIC 08-28-2014 [facility] LARYNGITIS 38350 ESOPHAGEAL 08-28-2014 [facility] REFLUX 4408 ATHEROSCLER 08-11-2014 [facility] OSIS OF VALLEY OTHER INTERNAL SPECIFIED MED ARTERIES 84992 ABDOMINAL 08-11-2014 [facility] PAIN, VALLEY EPIGASTRIC INTERNAL MED 72191 HYPOXEMIA 07-30-2014 [facility] 85950 OCCLUSION&S 06-27-2014 WYATT RICHARDOS CAROTID ART W/O MENTION INFARCT 76275 DIAB W/O 06-26-2014 [facility] COMP TYPE YUR II/UNS NOT STATED UNCNTRL 26233 ELEVATED 06-26-2014 CH[facility]IS CARCINOEMBR YUR YONIC ANTIGEN 486 PNEUMONIA, 06-25-2014 MONTANO SHANNON ORGANISM UNSPECIFIED V7282 PRE-OPERATI 06-25-2014 MONTANO SHANNON VE RESPIRATORY EXAMINATION 4111 INTERMEDIAT 06-21-2014 VICKIE Tovar CORONARY HEART SYNDROME SPECIALISTS , 49566 OSTEOARTHRO 06-12-2014 CHARIS ANAHI SIS UNSPEC WHETHER GEN/LOC LOWER LEG 08831 OSTEOARTHRO 06-12-2014 [place] [facility] SIS UNSPEC SERV WHETHER FOUNDATION GEN/LOC ANK&FOOT 82360 PAIN IN 06-12-2014 CHARIS ANAHI JOINT, LOWER LEG 63903 PAIN IN 05-10-2014 JUSTICE JOINT, ANN ANKLE AND FOOT 8248 UNSPECIFIED 05-10-2014 [facility] FRACTURE OF ANKLE 7177 CHONDROMALA 03-30-2014 [facility]TE[facility] JAM CHAIM OF PATELLA 06177 PES 03-30-2014 [facility] JAM ANSERINUS TENDINITIS OR BURSITIS 81364 OTHER 03-30-2014 [place] [address] 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 [facility] H[facility] LILI SYNDROME CERVICAL REGION 7234 BRACHIAL 03-23-2014 ADRIEL HAM NEURITIS OR RADICULITIS NOS 7226 DEGENERATIO 12-19-2013 ELIZABETH N AUDRA INTERVERTEB RAL DISC SITE UNSPEC 7292 UNSPECIFIED 12-19-2013 ELIZABETH NEURALGIA AUDRA NEURITIS AND RADICULITIS 92612 OTHER 10-31-2013 EUGENIO SPECIFIED LA DISORDERS OF BREAST 2724 OTHER AND 10-12-2013 ELIZABETH UNSPECIFIED AUDRA HYPERLIPIDE LIN V7231 ROUTINE 10-12-2013 [facility] DARIUSZ AL EXAMINATION 37695 OCCL&STENOS 05-09-2013 EUGENIO MX&BILAT LA PRECERBRL ART W/O INFARCT 7295 PAIN IN 02-25-2013 BARB WALDRON SOFT [facility] TISSUES OF LIMB 5781 BLOOD IN 12-16-2012 [facility] STOOL [facility] INC 99542 DIVERTICULO 12-14-2012 BESSON ANN SIS OF COLON 0091 COLITIS 12-13-2012 [facility] ENTERIT&GAS LUDWIN TROENTERIT INF ORIGIN 2662 OTHER 10-25-2012 BARB WALDRON B-COMPLEX SOL[facility]AD DEFICIENCIE S 14753 ABDOMINAL 2012 [facility] PAIN RIGHT [facility] UPPER INC QUADRANT V8801 ACQUIRED 04-22-2012 [facility] ABSENCE OF MEDICAL BOTH CERVIX IMAGING ASS AND UTERUS 8470 NECK SPRAIN 09-04-2011 [facility] AND STRAIN [facility] INC 2113 BENIGN 06-10-2011 C [facility] NEOPLASM OF ZULEYMASTALEXEI COLON PSC V7651 SPECIAL 05-29-2011 [facility] SCREENING [facility] FOR INC MALIGNANT NEOPLASMS COLON 96530 UNSPECIFIED 05-22-2011 C T[facility] ANNABELLE CONSTIPATIO PSC N 5693 HEMORRHAGE 05-22-2011 C TYLER OF RECTUM ANNABELLE AND ANUS PSC 5283 CELLULITIS 04-11-2011 [facility] AND ABSCESS VALLEY OF ORAL INTERNAL SOFT MED TISSUES 03522 OTHER ACUTE 10-11-2010 [facility] POSTOPERATI SERVICES VE PAIN 7820 DISTURBANCE 10-11-2010 [facility] OF SKIN EMERGENCY SENSATION SERVICES 38231 OTHER 10-11-2010 [facility] SPECIFIED [facility] COMPLICATIO INC NS NEC V5869 LONG-TERM 09-04-2010 [facility] (CURRENT) [facility] USE OF HOSP OTHER MEDICATIONS 4928 OTHER 08-12-2010 [facility] EMPHYSEMA [facility] INTERNAL MED 7862 COUGH 08-11-2010 [facility] 34229 OTHER 08-10-2010 [facility] DISEASES OF EMERGENCY NASAL SERVICES CAVITY AND SINUSES 7291 UNSPECIFIED 08-10-2010 [facility] MYALGIA [facility] MYOSITIS 11231 FEVER 08-10-2010 [facility] UNSPECIFIED [facility]ERGENCY SERVICES 490 BRONCHITIS 07-31-2010 [facility] NOT VALLEY SPECIFIED INTERNAL ACUTE OR MED CHRONIC 4919 UNSPECIFIED 01-30-2010 [facility] CHRONIC [facility] BRONCHITIS INC 4660 ACUTE 12-18-2009 [facility] BRONCHITIS [facility] INC 7859 OTHER 12-18-2009 [facility] SYMPTOMS MEDICAL INVOLVING IMAGING CARDIOVASCU ASSOCIATES LAR SYSTEM 4619 ACUTE 08-25-2009 [facility] SINUSITIS, VALLEY UNSPECIFIED INTERNAL MED 19299 PRIMARY 04-16-2009 [place] [facility] LOCALIZED SERV OSTEOARTHRO FOUNDATIO SIS LOWER LEG 6929 CONTACT 11-22-2008 [facility] DERMATITIS& VALLEY OTHER INTERNAL ECZEMA DUE MED UNSPEC CAUSE 16583 OTHER 09-25-2008 [facility] ANXIETY IDANHA STATES INTERNAL MED 4279 UNSPECIFIED 09-25-2008 [facility] CARDIAC IDANHA DYSRHYTHMIA INTERNAL MED 81006 ABDOMINAL 09-06-2008 [place] [facility] PAIN, SERV PERIUMBILIC FOUNDATIO 64673 ACUTE 07-02-2008 [facility] GASTRITIS [facility] WITHOUT INC MENTION OF HEMORRHAGE 32706 UNSPECIFIED 05-10-2008 [place] [facility] SERV ESOPHAGITIS FOUNDATIO 29312 ATROPHIC 05-10-2008 PATHOLOGY & GASTRITIS CYTOLOGY WITHOUT LAB MENTION OF HEMORRHAGE 25838 UNS 05-10-2008 [place] [facility] GASTRITIS&G SERV ASTRODUODIT FOUNDATIO IS W/O MENTION HEMORR 87214 DUODENITIS 05-10-2008 PATHOLOGY & WITHOUT CYTOLOGY MENTION OF LAB HEMORRHAGE 72923 EFFUSION OF 03-28-2008 TAO C LOWER LEG EUGENIO JOINT 2409 GOITER, 03-17-2008 [facility] UNSPECIFIED [facility] IMAGING ASSOC[facility]ATES 2410 NONTOXIC 03-17-2008 [facility] UNINODULAR [facility] GOITER INC 95232 DYSPHAGIA 03-17-2008 [facility] DUE TO MEM HOS[facility] CEREBROVASC INC ULAR DISEASE 7179 UNSPECIFIED 03-14-2008 [facility] INTERNAL [facility] DERANGEMENT INC OF KNEE 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 V762 SCREENING 03-09-2008 [facility] [place] INC MALIGNANT NEOPLASM OF THE CERVIX 7224 DEGENERATIO 02-14-2008 [facility] N OF IDANHA CERVICAL INTERNAL INTERVERTEB MED RAL DISC 43054 SPASM OF 02-14-2008 [facility] MUSCLE IDANHA INTERNAL MED 462 ACUTE 01-18-2008 [facility] PHARYNGITIS [facility] INC 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 INC 460 ACUTE 01-13-2008 [facility] NASOPHARYNG IDANHA ITIS INTERNAL MED [id number] Chest pain [facility] [id number] Active [facility] 558.9 Colitis [facility] [id number] Chronic [facility] Allergies, Adverse Reactions, Alerts Type Allergy [...] 10 08 30 30 00 EA Ac MD 37 -2 -[address] ti [...] ve LO 37 20 20 49 DE MD 40 17 17 17 AM 1 16 [...] 86 -2 -[address] ti MD 20 1- 5- 00 00 SI ve [...] 86 -2 -[address] ti MD 20 0- 8- 00 00 SI ve [...] ve LO 37 20 20 49 DE MD 40 17 17 17 AM 1 16 [...] 07 08 30 30 00 EA Ac MD 37 -2 -[address] ti [...] 06 07 30 30 00 EA Ac MD 37 -1 -[address] ti [...] 86 -1 -[address] ti MD 20 9- 4- 00 00 SI ve [...] ve LO 37 20 20 49 DE MD 40 17 17 17 AM 1 16 [...] ve LO 37 20 20 48 DE MD 40 17 17 37 AM 1 26 [...] 86 -2 -[address] ti MD 20 1- 3- 00 00 SI ve OL 06 20 20 48 DE OL 39 17 17 83 9 28 PH TA AR RT MA RA CY TE OF 50 CY NT MG HI AN TA A B IN C BU 10 05 06 30 30 00 EA Ac MD 37 -2 -[address] ti [...] 86 -1 -[address] ti MD 20 8- 00 SI ve OL 06 20 20 47 DE OL 39 17 17 28 9 69 PH TA AR RT MA RA CY TE OF 50 CY NT MG HI AN TA A B IN C BU 10 04 05 30 30 00 EA Ac MD 37 -1 -[address] ti [...] ve LO 37 20 20 48 DE MD 40 17 17 37 AM 1 26 [...] 5 73 PH CE AR TA MA [place] CY NO PH OF N CY 10 [...] 86 -1 -[address] ti MD 20 7- 00 SI ve OL 06 [...] 03 04 30 30 00 EA Ac MD 37 -1 -[address] ti [...] 5 80 PH CE AR TA MA [place] CY NO PH OF CY 7. NT [...] 86 -1 -[address] ti MD 20 7- 7- 00 00 SI ve [...] 5 86 PH CE AR TA MA [place] CY NO PH OF N CY 10 [...] 02 03 30 30 00 EA Ac MD 37 -1 -[address] ti [...] 86 -1 -[address] ti MD 20 8- 0- 00 00 SI ve [...] 5 90 PH CE AR TA MA [place] CY NO PH OF N CY 10 [...] 01 02 12 30 00 EA Ac MD 78 -0 -[address] ti [...] 15 7- 7- 00 00 SI ve MD 02 20 20 47 DE ED 20 [...] 86 -1 -[address] ti MD 20 9- 0- 00 00 SI ve [...] 5 36 PH CE AR TA MA WY CY NO PH OF N CY 10 NT -3 HI 25 AN A IN C AL 00 12 01 12 30 00 EA Ac MD 78 -0 -[address] ti [...] RO 07 -2 SE 90 9- Lo WY 07 20 ng DE 22 13 er 0 20 Ac ti MG ve TA BL ET Li 00 04 1 No si 17 -2 no 23 9- Lo pr 75 20 ng il 91 13 er 0 10 Ac MG ti ve Ta bl et MD 00 04 1 No OT 00 -2 [...] er -A 2 CE Ac TA ti WY ve NO PH N 10 -3 25 [...] 51 04 2 No TO 07 -2 MD 90 8- Lo OL 80 20 ng OL 12 13 er 0 TA Ac RT ti RA ve TE 50 MG TA B FU 51 04 0 No RO 07 -1 SE 90 1- Lo WY 07 20 ng DE 32 13 er 0 40 Ac ti MG ve TA BL ET MD 37 07 10 3 30 30 EA [...] 0 DE RA [address] [place] 6 PH EP DE AR HE MA N 10 CY A MG OF TA CY BL NT ET HI AN A ME 00 07 10 3 60 30 EA 23 BE Ac TO 09 -2 -[address] 36 SS ti MD 30 0- 1- 00 SI 99 ON [...] 23 0- 00 SI 00 ON ve MD 75 20 20 DE [place] [address] 0 PH EP 10 AR HE MA N MG CY A TA OF BL ET CY NT HI AN A CR 00 08 10 3 30 30 EA 23 MC Ac ES 31 -2 -[address] 76 KE ti TO 00 SI 62 WY ve R 75 20 20 DE E 10 19 11 11 JR 0 PH MG AR WI MA LL TA CY IA BL M ET OF F CY NT HI AN A AL 67 10 10 0 90 30 EA 24 MC Ac MD 25 -2 -[address] 61 KE ti AZ 30 SI 33 WY ve OL 90 20 20 DE E AM 21 11 11 JR 1 0 PH AR WI MG MA LL CY IA TA M BL OF F ET CY NT HI AN A TR 65 10 10 0 90 30 EA 24 MC Ac AM 16 -2 -[address] 61 KE ti AD 20 SI 34 WY ve OL 62 20 20 DE E 71 11 11 JR HC 1 PH L AR WI 50 MA LL CY IA MG M OF F TA BL CY ET NT HI AN A TR 00 08 10 4 15 4 EA 23 MC Ac IA 16 -2 -[address] 76 KE ti MC 80 2 SI 63 WY ve IN 00 20 20 DE E OL 31 11 11 JR ON 5 PH E AR WI 0. MA LL 02 CY IA 5% M OF F CR EA CY M NT HI AN A 00 10 10 0 60 30 EA 24 MC Ac 59 -1 -[address] 44 KE ti 10 0 SI 97 WY ve 50 20 20 DE E 30 11 11 JR 1 PH AR WI MA LL CY IA M OF F CY NT HI AN A WY 00 09 09 0 30 30 EA 24 MC Ac RT 09 -2 -[address] 23 KE ti AZ 37 3- 3 00 SI 05 WY ve AP 20 20 20 DE E IN 75 11 11 JR E 6 PH 30 AR WI MA LL MG CY IA M TA OF F BL ET CY NT HI AN A MD 37 07 09 3 30 30 EA [...] 0 DE RA [address] W[place] 6 PH EP DE AR HE MA N 10 CY A MG OF TA CY BL NT ET HI AN A ME 00 07 09 3 60 30 EA 23 BE Ac TO 09 -2 -[address] 36 SS ti MD 30 0- 2- 00 SI 99 ON [...] 0- 2- 00 SI 00 ON ve MD 75 20 20 DE [place] [address] 0 PH EP 10 AR HE MA N MG CY A TA OF BL ET CY NT HI AN A CR 00 08 09 3 30 30 EA 23 MC Ac ES 31 -2 -[address] 76 KE ti TO 00 2- 2- 00 SI 62 WY ve R 75 20 20 DE E 10 19 11 11 JR 0 PH MG AR WI MA LL TA CY IA BL M ET OF F CY NT HI AN A AL 67 09 09 0 90 30 EA 24 MC Ac MD 25 -2 -[address] 19 KE ti AZ 30 1- 1- 00 SI 16 WY ve OL 90 20 20 DE E AM 21 11 11 JR 1 0 PH AR WI MG MA LL CY IA TA M BL OF F ET CY NT HI AN A TR 65 09 09 0 90 30 EA 24 MC Ac AM 16 -2 -[address] 19 KE ti AD 20 1- 1- 00 SI 17 WY ve OL 62 20 20 DE E [...] 0 DE RA [address] [place] 6 PH EP DE AR HE MA N 10 CY A MG OF TA CY BL NT ET HI AN A ME 00 07 08 3 60 30 EA 23 BE Ac TO 09 -2 -[address] 36 SS ti MD 30 0- 2- 00 SI 99 ON [...] 0- 2- 00 SI 00 ON ve MD 75 20 20 DE [place] [address] 0 PH EP 10 AR HE MA N MG CY A TA OF BL ET CY NT HI AN A TR 00 08 08 4 15 10 EA 23 MC Ac IA 16 -2 -[address] 76 KE ti MC 80 2- 2- 00 SI 63 [place] ve IN 00 20 20 DE E OL 31 11 11 JR ON 5 PH E AR [place] 0. MA LL 02 CY IA 5% M OF F CR EA CY M NT HI AN A AL 67 08 08 0 90 30 EA 23 MC Ac MD 25 -2 -[address] 76 KE ti AZ 30 2- 2- 00 SI 64 [place] ve OL 90 20 20 DE E AM 21 11 11 JR 1 0 PH AR WI MG MA LL CY IA TA M BL OF F ET CY NT HI AN A 00 08 08 0 60 30 EA 23 MC Ac 59 -1 -[address] 63 KE ti 10 1- 1- 00 SI 03 WY ve 50 20 20 DE E 30 11 11 JR 1 PH AR WI MA LL CY IA M OF F CY NT HI AN A AL 67 07 07 0 90 30 EA 23 BE Ac MD 25 -2 -[address] 36 SS [...] ET OF CY NT HI AN A MD 37 07 07 3 30 30 EA [...] 0 DE RA [address] [place] 6 PH EP DE AR HE MA N 10 CY A MG OF TA CY BL NT ET HI AN A ME 00 07 07 3 60 30 EA 23 BE Ac TO 09 -2 -[address] 36 SS ti MD 30 0- 0- 00 SI 99 ON [...] ti 10 1- 1- 00 SI 96 W[place] ve 50 20 20 DE E 30 11 11 JR 1 PH AR WI MA LL CY IA M OF F CY NT HI AN A ME 16 03 06 2 12 30 EA 21 MC Ac TO 71 -2 -[address] 78 KE ti CL 40 1- 0- 00 SI 49 WY ve OP 06 20 20 0 DE E RA 20 11 11 JR W[place] 6 PH DE AR WI MA LL 10 CY IA M MG OF F TA CY BL NT ET HI AN A 64 04 06 2 30 30 EA 22 MC Ac 67 -2 -[address] 21 KE ti 90 1- 0- 00 SI 02 WY ve 92 20 20 DE E 90 11 11 JR 6 PH AR WI MA LL CY IA M OF F CY NT HI AN A ME 00 04 06 2 60 30 EA 22 MC Ac TO 09 -2 -[address] 21 KE ti MD 30 1- 0- 00 SI 03 WY ve OL 73 20 20 DE E OL 31 11 11 JR 0 PH TA AR WI RT MA LL RA CY IA TE M OF F 50 CY MG NT HI TA AN B A MD 37 06 06 2 30 30 EA 23 MC Ac IL 00 -2 -[address] 01 KE ti OS 00 0- 0- 00 SI 17 WY ve EC 45 20 20 DE E 50 11 11 JR OT 2 PH C AR WI 20 MA LL .6 CY IA M MG OF F TA CY BL NT ET HI AN A TR 65 06 06 0 90 30 EA 23 MC Ac AM 16 -2 -[address] 01 KE ti AD 20 0- 0- 00 SI 87 WY ve OL 62 20 20 DE E 71 11 11 JR HC 1 PH L AR WI 50 MA LL CY IA MG M OF F TA BL CY ET NT HI AN A CR 00 06 06 0 30 30 EA 23 MC Ac ES 31 -2 -[address] 01 KE ti TO 00 0- 0- 00 SI 88 WY ve R 75 20 20 DE E 10 19 11 11 JR 0 PH MG AR WI MA LL TA CY IA BL M ET OF F CY NT HI AN A AL 67 06 06 0 90 30 EA 23 MC Ac MD 25 -2 -[address] 01 KE ti AZ 30 0- 0- 00 SI 89 WY ve OL 90 20 20 DE E [...] TO 00 1- 0- 00 SI 41 WY ve R 75 20 20 DE E 10 19 11 11 JR 0 PH MG AR WI MA LL TA CY IA BL M ET OF F CY NT HI AN A MD 37 03 05 2 30 30 EA 21 MC Ac IL 00 -2 -[address] 78 KE ti OS 00 1- 0- 00 SI 42 WY ve EC 45 20 20 DE E 50 11 11 JR OT 2 PH C AR WI 20 MA LL .6 CY IA M MG OF F TA CY BL NT ET HI AN A ME 16 03 05 2 12 30 EA 21 MC Ac TO 71 -2 -[address] 78 KE ti CL 40 1- 0- 00 SI 49 WY ve OP 06 20 20 0 DE E RA 20 11 11 JR WY 6 PH DE AR WI MA LL 10 CY IA M MG OF F TA CY BL NT ET HI AN A 64 04 05 2 30 30 EA 22 MC Ac 67 -2 -[address] 21 KE ti 90 1- 0- 00 SI 02 WY ve 92 20 20 DE E 90 11 11 JR 6 PH AR WI MA LL CY IA M OF F CY NT HI AN A ME 00 04 05 2 60 30 EA 22 MC Ac TO 09 -2 -[address] 21 KE ti MD 30 1- 0- 00 SI 03 WY ve OL 73 20 20 DE E [...] 0 90 30 EA 22 BE Ac MD 25 -2 -[address] 62 SS [...] KE ti MC 80 7 SI 04 WY ve IN 00 20 20 DE E OL 31 11 11 JR ON 5 PH E AR WI 0. MA LL 02 CY IA 5% M OF F CR EA CY M NT HI AN A 00 05 05 0 60 30 EA 22 MC Ac 59 -0 -[address] 45 KE ti 10 SI 24 WY ve 50 20 20 DE E 30 11 11 JR 1 PH AR WI MA LL CY IA M OF F CY NT HI AN A AL 67 03 04 1 90 30 EA 21 MC Ac MD 25 -2 -[address] 78 KE ti AZ 30 SI 39 WY ve OL 90 20 20 DE E AM 21 11 11 JR 1 0 PH AR WI MG MA LL CY IA TA M BL OF F ET CY NT HI AN A TR 65 03 04 1 90 30 EA 21 MC Ac AM 16 -2 -[address] 78 KE ti AD 20 SI 40 WY ve OL 62 20 20 DE E 71 11 11 JR HC 1 PH L AR WI 50 MA LL CY IA MG M OF F TA BL CY ET NT HI AN A CR 00 03 04 2 30 30 EA 21 MC Ac ES 31 -2 -[address] 78 KE ti TO 00 SI 41 WY ve R 75 20 20 DE E 10 19 11 11 JR 0 PH MG AR WI MA LL TA CY IA BL M ET OF F CY NT HI AN A MD 37 03 04 2 30 30 EA 21 MC Ac IL 00 -2 -[address] 78 KE ti OS 00 SI 42 WY ve EC 45 20 20 DE E 50 11 11 JR OT 2 PH C AR WI 20 MA LL .6 CY IA M MG OF F TA CY BL NT ET HI AN A 64 04 04 2 30 30 EA 22 MC Ac 67 -2 -[address] 21 KE ti 90 SI 02 WY ve 92 20 20 DE E 90 11 11 JR 6 PH AR WI MA LL CY IA M OF F CY NT HI AN A ME 00 04 04 2 60 30 EA 22 MC Ac TO 09 -2 -[address] 21 KE ti MD 30 SI 03 WY ve OL 73 20 20 DE E OL 31 11 11 JR 0 PH TA AR WI RT MA LL RA CY IA TE M OF F 50 CY MG NT HI TA AN B A 00 04 04 0 60 30 EA 22 MC Ac 59 -0 -[address] 01 KE ti 10 SI 02 WY ve 50 20 20 DE E 30 11 11 JR 1 PH AR [place] MA LL CY IA M OF F CY NT HI AN A ME 00 11 03 3 60 30 EA 20 BE Ac TO 09 -1 -[address] 06 SS ti MD 30 SI 82 ON ve OL 73 [...] 03 1 90 30 EA 21 Ac MD 25 -2 -[address] 78 KE ti AZ 30 SI 39 WY ve OL 90 20 20 DE E AM 21 11 11 JR 1 0 PH AR WI MG MA LL CY IA TA M BL OF F ET CY NT HI AN A TR 65 03 03 1 90 30 EA 21 Ac AM 16 -2 -[address] 78 KE ti AD 20 SI 40 WY ve OL 62 20 20 DE E 71 11 11 JR HC 1 PH L AR WI 50 MA LL CY IA MG M OF F TA BL CY ET NT HI AN A CR 00 03 03 2 30 30 EA 21 Ac ES 31 -2 -[address] 78 KE ti TO 00 SI 41 WY ve R 75 20 20 DE E 10 19 11 11 JR 0 PH MG AR WI MA LL TA CY IA BL M ET OF F CY NT HI AN A MD 37 03 03 2 30 30 EA 21 MC Ac IL 00 -2 -[address] 78 KE ti OS 00 SI 42 WY ve EC 45 20 20 DE E 50 11 11 JR OT 2 PH C AR WI 20 MA LL .6 CY IA M MG OF F TA CY BL NT ET HI AN A ME 16 03 03 2 12 30 EA 21 MC Ac TO 71 -2 -[address] 78 KE ti CL 40 SI 49 WY ve OP 06 20 20 0 DE E RA 20 11 11 JR WY 6 PH DE AR WI MA LL [...] ET OF CY NT HI AN A MD 37 11 02 3 30 30 EA [...] 90 KE ti AD 20 SI 01 WY ve OL 62 20 20 DE E 71 11 11 JR HC 1 PH L AR [place] 50 MA LL CY IA MG M OF F TA BL CY ET NT HI AN A AL 00 01 02 1 90 30 EA 20 MC Ac MD 78 -2 -[address] 90 KE ti AZ 11 SI 02 WY ve OL 07 20 20 DE E AM 90 11 11 JR 1 1 PH AR WI MG MA LL CY IA TA M BL OF F ET CY NT HI AN A ME 00 11 02 3 60 30 EA 20 BE Ac TO 09 -1 -[address] 06 SS ti MD 30 9- 5- 00 SI 82 ON [...] MC 80 5- 5- 00 SI 38 WY ve IN 00 20 20 DE E [...] AD 20 1- 1- 00 SI 01 WY ve OL 62 20 20 DE E 71 11 11 JR HC 1 PH L AR WI 50 MA LL CY IA MG M OF F TA BL CY ET NT HI AN A AL 00 01 01 1 90 30 EA 20 MC Ac MD 78 -2 -[address] 90 KE ti AZ 11 1- - SI 02 WY ve OL 07 20 20 DE E [...] ET OF CY NT HI AN A MD 37 11 01 3 30 30 EA [...] 9- 0- 00 SI 85 ON ve MD 75 20 20 [place] [address] 0 PH EP 10 AR HE MA N MG CY A TA OF BL ET CY NT HI AN A ME 00 11 01 3 60 30 EA 20 BE Ac TO 09 -1 -[address] 06 SS ti MD 30 9- 3- 00 SI 82 ON [...] A OF CY NT HI AN A MD 37 11 12 3 30 30 EA [...] 9- 0- 00 SI 85 ON ve MD 75 20 20 [place] [address] 0 PH EP 10 AR HE MA N MG CY A TA OF BL ET CY NT HI AN A AL 00 12 12 0 90 30 EA 20 MC Ac MD 78 -2 -[address] 47 KE ti AZ 11 0- 0- 00 SI 79 WY ve OL 07 20 20 DE E AM 90 10 10 JR 1 1 PH AR WI MG MA LL CY IA TA M BL OF F ET CY NT HI AN A TR 65 12 12 0 90 30 EA 20 MC Ac AM 16 -2 -[address] 47 KE ti AD 20 0- 0- 00 SI 80 WY ve OL 62 20 20 DE E [...] MC 80 3- 3- 00 SI 36 WY ve IN 00 20 20 DE E [...] 0 90 30 EA 20 BE Ac MD 78 -1 -[address] 06 SS [...] -1 -[address] 06 SS ti MD 30 9- 9- 00 SI 82 ON ve OL 73 20 20 DE OL [address] 0 PH EP TA AR HE RT MA N RA CY A TE OF 50 CY MG NT HI TA AN B A MD 37 11 11 3 30 30 EA [...] NO 23 9 SI 85 ON ve MD 75 20 20 DE IL 96 10 [...] 0 DE RA [address] WY 6 PH EP DE AR HE MA N 10 CY A MG OF TA CY BL NT ET HI AN A MD 37 08 10 2 30 30 EA [...] -2 -[address] 79 SS ti MD 30 0- 8- 00 SI 03 ON ve OL 73 20 20 DE OL [address] 0 PH EP TA AR HE RT MA N RA CY A TE OF 50 CY MG NT HI TA AN B A AL 00 08 10 2 90 30 EA 18 BE Ac MD 78 -2 -[address] 79 SS [...] 0 DE RA [address] [place] 6 PH EP DE AR HE MA N 10 CY A MG OF TA CY BL NT ET HI AN A LI 00 08 10 2 30 30 EA 18 BE Ac SI 17 -2 -[address] 79 SS ti NO 23 0- 8- 00 SI 09 ON ve MD 75 20 20 DE IL 96 10 [...] MC 80 7- 7- 00 SI 95 WY ve IN 00 20 20 DE E [...] BL CY ET NT HI AN A MD 37 08 09 2 30 30 EA [...] -2 -[address] 79 SS ti MD 30 0- 7- 00 SI 03 ON ve OL 73 20 20 DE OL [address] 0 PH EP TA AR HE RT MA N RA CY A TE OF 50 CY MG NT HI TA AN B A AL 00 08 09 2 90 30 EA 18 BE Ac MD 78 -2 -[address] 79 SS [...] 0- 7- 00 SI 09 ON ve MD 75 20 20 [place] [address] 0 PH EP 10 AR HE MA N MG CY A TA OF BL ET CY NT HI AN A MD 37 08 08 2 30 30 EA [...] -2 -[address] 79 SS ti MD 30 0- 0- 00 SI 03 ON ve OL 73 20 20 DE OL [address] 0 PH EP TA AR HE RT MA N RA CY A TE OF 50 CY MG NT HI TA AN B A AL 00 08 08 2 90 30 EA 18 BE Ac MD 78 -2 -[address] 79 SS [...] 0 DE RA [address] [place] 6 PH EP DE AR HE MA N 10 CY A MG OF TA CY BL NT ET HI AN A LI 00 08 08 2 30 30 EA 18 BE Ac SI 17 -2 -[address] 79 SS ti NO 23 0- 0- 00 SI 09 ON ve MD 75 20 20 DE IL 96 10 [...] MC 80 9- 0- 00 SI 54 WY ve IN 00 20 20 DE E OL 31 10 10 JR ON 5 PH E AR [place] 0. MA LL 02 CY IA 5% M OF F CR EA CY M NT HI AN A AL 00 05 07 2 90 30 EA 17 BE Ac MD 78 -1 -[address] 66 SS [...] -1 -[address] 66 SS ti MD 30 9- 9- 00 SI 22 ON ve OL 73 20 20 DE OL [address] 0 PH EP TA AR HE RT MA N RA CY A TE OF 50 CY MG NT HI TA AN B A MD 37 05 07 2 30 30 EA [...] 06 KE ti TO 00 SI 29 WY ve R 75 20 20 DE E 10 19 10 10 JR 0 PH MG AR WI MA LL TA CY IA BL M ET OF F CY NT HI AN A LI 00 06 07 2 30 30 EA 18 MC Ac SI 17 -2 -[address] 06 KE ti NO 23 SI 30 WY ve MD 75 20 20 DE E [place] 96 10 10 JR 0 PH 10 AR WI MA LL MG CY IA M TA OF F BL ET CY NT HI AN A CR 00 06 06 2 30 30 EA 18 MC Ac ES 31 -2 -[address] 06 KE ti TO SI 29 WY ve R 75 20 20 DE E 10 19 10 10 JR 0 PH MG AR WI MA LL TA CY IA BL M ET OF F CY NT HI AN A LI 00 06 06 2 30 30 EA 18 MC Ac SI 17 -2 -[address] 06 KE ti NO 23 SI 30 WY ve MD 75 20 20 DE E IL 96 10 10 JR 0 PH 10 AR WI MA LL MG CY IA M TA OF F BL ET CY NT HI AN A AL 00 05 06 2 90 30 EA 17 BE Ac MD 78 -1 -[address] 66 SS [...] -1 -[address] 66 SS ti MD 30 SI 22 ON ve OL 73 20 20 DE OL [address] 0 PH EP TA AR HE RT MA N RA CY A TE OF 50 CY MG NT HI TA AN B A MD 37 05 06 2 30 30 EA [...] 43 KE ti NO 23 SI 61 WY ve MD 75 20 20 DE E IL 96 10 10 JR 0 PH 10 AR WI MA LL MG CY IA M TA OF F BL ET CY NT HI AN A CR 00 02 05 3 30 30 EA 16 MC Ac ES 31 -1 -[address] 43 KE ti TO 00 SI 62 WY ve R 75 20 20 DE E [...] -1 -[address] 66 SS ti MD 30 SI 22 ON ve OL 73 20 20 DE OL [address] 0 PH EP TA AR HE RT MA N RA CY A TE OF 50 CY MG NT HI TA AN B A MD 37 05 05 2 30 30 EA [...] 0 DE RA [address] [place]Y 6 PH EP DE AR HE MA N 10 CY A MG OF TA CY BL NT ET HI AN A AL 00 05 05 2 90 30 EA 17 BE Ac MD 78 -1 -[address] 66 SS [...] AD 20 0- 9 00 SI 61 WY ve OL 62 20 20 DE E 71 10 10 JR HC 1 PH L AR WI 50 MA LL CY IA MG M OF F TA BL CY ET NT HI AN A TR 00 04 04 1 60 15 EA 17 MC Ac IA 16 -1 -[address] 25 KE ti MC 80 9 SI 54 WY ve IN 00 20 20 DE E OL 31 10 10 JR ON 5 PH E AR WI 0. MA LL 02 CY IA 5% M OF F CR EA CY M NT HI AN A AL 00 02 04 2 90 30 EA 16 MC Ac MD 78 -2 -[address] 45 KE ti AZ 11 0- 9 SI 59 WY ve OL 07 20 20 DE E AM 90 10 10 JR 1 1 PH AR WI MG MA LL CY IA TA M BL OF F ET CY NT HI AN A 00 02 04 2 60 30 EA 16 MC Ac 59 -2 -[address] 45 KE ti 10 0- 9 00 SI 60 WY ve 50 20 20 DE E 30 10 10 JR 1 PH AR WI MA LL CY IA M OF F CY NT HI AN A LI 00 02 04 3 30 30 EA 16 MC Ac SI 17 -1 -[address] 43 KE ti NO 23 SI 61 WY ve MD 75 20 20 DE E IL 96 10 10 JR 0 PH 10 AR WI MA LL MG CY IA M TA OF F BL ET CY NT HI AN A CR 00 02 04 3 30 30 EA 16 MC Ac ES 31 -1 -[address] 43 KE ti TO 00 SI 62 WY ve R 75 20 20 DE E [...] 0 DE RA [address] [place]Y 6 PH EP DE AR HE MA N 10 CY A MG OF TA CY BL NT ET HI AN A MD 37 01 04 3 30 30 EA 16 MC Ac IL 00 -1 -[address] 00 KE ti OS 00 SI 11 WY ve EC 45 20 20 DE E 50 10 10 JR OT 2 PH C AR WI 20 MA LL .6 CY IA M MG OF F TA CY BL NT ET HI AN A ME 00 01 04 3 60 30 EA 16 MC Ac TO -[address] 00 KE ti MD 30 SI 13 WY ve OL 73 20 20 DE E OL 31 10 10 JR 0 PH TA AR WI RT MA LL RA CY IA TE M OF F 50 CY MG NT HI TA AN B A 00 02 03 2 60 30 EA 16 MC Ac 59 -2 -[address] 45 KE ti 10 0 SI 60 WY ve 50 20 20 DE E 30 10 10 JR 1 PH AR WI MA LL CY IA M OF F CY NT HI AN A AL 00 02 03 2 90 30 EA 16 MC Ac MD 78 -2 -[address] 45 KE ti AZ 11 SI 59 WY ve OL 07 20 20 DE E AM 90 10 10 JR 1 1 PH AR WI MG MA LL CY IA TA M BL OF F ET CY NT HI AN A TR 65 02 03 2 90 30 EA 16 MC Ac AM 16 -2 -[address] 45 KE ti AD 20 0- SI 61 WY ve OL 62 20 20 DE E 71 10 10 JR HC 1 PH L AR WI 50 MA LL CY IA MG M OF F TA BL CY ET NT HI AN A ME 00 01 03 3 60 30 EA 16 MC Ac TO 09 -[address] 00 KE ti MD 30 8- 9- 00 SI 13 WY ve OL 73 20 20 DE E OL 31 10 10 JR 0 PH TA AR WI RT MA LL RA CY IA TE M OF F 50 CY MG NT HI TA AN B A LI 00 02 03 3 30 30 EA 16 MC Ac SI 17 -1 -[address] 43 KE ti NO 23 SI 61 WY ve MD 75 20 20 DE E IL 96 10 10 JR 0 PH 10 AR WI MA LL MG CY IA M TA OF F BL ET CY NT HI AN A CR 00 02 03 3 30 30 EA 16 MC Ac ES 31 -1 -[address] 43 KE ti TO 00 SI 62 WY ve R 75 20 20 DE E [...] 0 DE RA [address] WY 6 PH EP DE AR HE MA N 10 CY A MG OF TA CY BL NT ET HI AN A MD 37 01 03 3 30 30 EA 16 MC Ac IL 00 -1 -[address] 00 KE ti OS 00 SI 11 WY ve EC 45 20 20 DE E [...] 0 DE RA [address] WY 6 PH EP DE AR HE MA N 10 CY A MG OF CY TA NT BL HI ET AN A MD 37 01 02 01 30 30 EA 16 MC Ac IL 00 -1 -[address] 00 KE ti OS 00 8 SI 11 WY ve EC 45 20 20 DE E 50 10 10 JR OT 2 PH C AR WI 20 MA LL .6 CY IA M MG OF F CY TA NT BL HI ET AN A ME 00 01 02 01 60 30 EA 16 MC Ac TO 09 -1 -[address] 00 KE ti MD 30 8 SI 13 WY ve OL 73 20 20 DE E OL 31 10 10 JR 0 PH TA AR WI RT MA LL RA CY IA TE M OF F 50 CY NT MG HI AN TA A B TR 00 10 02 02 30 10 EA 14 MC Ac IA 16 -1 -[address] 73 KE ti MC 80 SI 69 WY ve IN 00 20 20 DE E OL 31 09 10 JR ON 5 PH E AR [place] 0. MA LL 02 CY IA 5% M OF F CR CY EA NT M HI AN A LI 00 02 02 00 30 30 EA 16 BE Ac SI 17 -1 -[address] 43 SS ti NO 23 SI 61 ON ve MD 75 20 20 [place] [address] 0 PH EP 10 AR HE MA N MG CY A TA OF BL CY ET NT HI AN A CR 00 02 00 30 30 EA 16 MC Ac ES 31 -1 -[address] 43 KE ti TO 00 SI 62 WY ve R 75 20 20 DE E 10 19 10 10 JR 0 PH MG AR WI MA LL TA CY IA BL M ET OF F CY NT HI AN A TR 65 01 00 90 30 EA 16 MC Ac AM 16 -1 -[address] 00 KE ti AD 20 SI 09 WY ve OL 62 20 20 DE E [...] 99 90 30 EA 16 MC Ac MD 78 -1 -[address] 00 KE ti AZ 11 SI 12 WY ve OL 07 20 20 DE E AM 90 10 10 JR 1 1 PH AR WI MG MA LL CY IA TA M BL OF F ET CY NT HI AN A 00 11 09 00 60 30 EA 16 MC Ac 59 -1 -[address] 00 KE ti 10 SI 10 WY ve 50 20 20 DE E 30 10 10 JR 1 PH AR WI MA LL CY IA M OF F CY NT HI AN A MD 37 01 01 00 30 30 EA 16 MC Ac IL 00 -1 -[address] 00 KE ti OS 00 SI 11 WY ve EC 45 20 20 DE E 50 10 10 JR OT 2 PH C AR WI 20 MA LL .6 CY IA M MG OF F CY TA NT BL HI ET AN A ME 00 11 09 00 60 30 EA 16 MC Ac TO 09 -1 -[address] 00 KE ti MD 30 SI 13 WY ve OL 73 20 20 DE E OL 31 10 10 JR 0 PH TA AR WI RT MA LL RA CY IA TE M OF F 50 CY NT MG HI AN TA A B LI 00 10 01 02 30 30 EA 14 BE Ac SI 17 -1 -[address] 73 SS ti NO 23 SI 72 ON ve MD 75 20 20 [place] [address] 0 PH EP 10 AR HE MA N MG CY A TA OF BL CY ET NT HI AN A MD 37 10 12 02 30 30 EA 14 MC Ac IL 00 -1 -[address] 73 KE ti OS 00 SI 64 WY ve EC 45 20 20 DE E 50 09 09 JR OT 2 PH C AR WI 20 MA LL .6 CY IA M MG OF F CY TA NT BL HI ET AN A TR 65 10 12 02 90 30 EA 14 MC Ac AM 16 -1 -[address] 73 KE ti AD 20 SI 66 WY ve OL 62 20 20 DE E 71 09 09 JR HC 1 PH L AR WI 50 MA LL CY IA MG M OF F TA CY BL NT ET HI AN A ME 00 10 12 00 60 30 EA 14 BE Ac TO 09 -1 -[address] 73 SS ti MD 30 SI 71 ON ve OL 73 20 20 DE OL [address] 0 PH EP TA AR HE RT MA N RA CY A TE OF 50 CY NT MG HI AN TA A B 00 12 12 00 60 30 EA 15 MC Ac 59 -1 -[address] 61 KE ti 10 SI 52 WY ve 50 20 20 DE E 30 [...] 7- 1- 00 SI 72 ON ve MD 75 20 20 [place] [address] 0 PH EP 10 AR HE MA N MG CY A TA OF BL CY ET NT HI AN A AL 00 10 12 02 90 30 EA 14 MC Ac MD 78 -1 -[address] 73 KE ti AZ 11 7- 1- 00 SI 67 WY ve OL 07 20 20 DE E AM 90 09 09 JR 1 1 PH AR WI MG MA LL CY IA TA M BL OF F ET CY NT HI AN A TR 00 10 12 01 30 10 EA 14 MC Ac IA 16 -1 -[address] 73 KE ti MC 80 7- 7- 00 SI 69 WY ve IN 00 20 20 DE E [...] 7- 3- 00 SI 72 ON ve MD 75 20 20 DE [place] [address] 0 PH EP 10 AR HE MA N MG CY A TA OF BL CY ET NT HI AN A AL 00 10 12 01 90 30 EA 14 MC Ac MD 78 -1 -[address] 73 KE ti AZ 11 7- 3- 00 SI 67 WY ve OL 07 20 20 DE E [...] ti 10 7- 3- 00 SI 53 WY ve 50 20 20 DE E 30 09 09 JR 1 PH AR WI MA LL CY IA M OF F CY NT HI AN A MD 37 10 12 01 30 30 EA 14 MC Ac IL 00 -1 -[address] 73 KE ti OS 00 7- 3- 00 SI 64 WY ve EC 45 20 20 DE E 50 09 09 JR OT 2 PH C AR WI 20 MA LL .6 CY IA M MG OF F CY TA NT BL HI ET AN A TR 65 10 12 01 90 30 EA 14 MC Ac AM 16 -1 -[address] 73 KE ti AD 20 7- 3- 00 SI 66 WY ve OL 62 20 20 DE E 71 09 09 JR HC 1 PH L AR WI 50 MA LL CY IA MG M OF F TA CY BL NT ET HI AN A TR 65 10 11 00 90 30 EA 14 MC Ac AM 16 -1 -[address] 73 KE ti AD 20 7- 5- 00 SI 66 WY ve OL 62 20 20 DE E 71 09 09 JR HC 1 PH L AR WI 50 MA LL CY IA MG M OF F TA CY BL NT ET HI AN A AL 00 10 11 00 90 30 EA 14 MC Ac MD 78 -1 -[address] 73 KE ti AZ 11 7- 5- 00 SI 67 WY ve OL 07 20 20 DE E AM 90 09 09 JR 1 1 PH AR WI MG MA LL CY IA TA M BL OF F ET CY NT HI AN A TR 00 10 11 00 30 10 EA 14 MC Ac IA 16 -1 -[address] 73 KE ti MC 80 7- 5- 00 SI 69 WY ve IN 00 20 20 DE E OL 31 09 09 JR ON 5 PH E AR WI 0. MA LL 02 CY IA 5% M OF F CR CY EA NT M HI AN A MD 37 10 11 00 30 30 EA 14 Ac IL 00 -1 -[address] 73 KE ti OS 00 7- 5- 00 SI 64 WY ve EC 45 20 20 DE E 50 09 09 JR OT 2 PH C AR WI 20 MA LL .6 CY IA M MG OF F CY TA NT BL HI ET AN A DO 53 10 11 00 20 10 EA 14 Ac XY 48 -1 -[address] 73 KE ti CY 90 7- 5- 00 SI 75 WY ve CL 11 20 20 DE E IN 90 09 09 JR E 5 PH HY AR WI CL MA LL AT CY IA E M 10 OF F 0 CY MG NT HI CA AN P A 00 10 11 00 60 30 EA 14 MC Ac 59 -1 -[address] 73 KE ti 10 7- 5- 00 SI 65 WY ve 50 20 20 DE E 30 [...] 0 DE RA [address] [place] 6 PH EP DE AR HE MA N 10 CY A MG OF CY TA NT BL HI ET AN A LI 00 05 10 05 30 30 EA 12 BE Ac SI 17 -1 -[address] 81 SS ti NO 23 9- 2- 00 SI 07 ON ve MD 75 20 20 DE IL 96 09 [...] -1 -[address] 81 SS ti MD 30 9- 2- 00 SI 04 ON ve OL 73 20 20 DE OL [address] 0 PH EP TA AR HE RT MA N RA CY A TE OF 50 CY NT MG HI AN TA A B ME 00 05 09 03 60 30 EA 12 BE Ac TO 09 -1 -[address] 81 SS ti MD 30 9- 4- 00 SI 04 ON [...] ti 10 7- 4- 00 SI 72 WY ve 50 20 20 DE E 30 09 09 JR 1 PH AR WI MA LL CY IA M OF F CY NT HI AN A TR 65 09 09 00 90 30 EA 14 MC Ac AM 16 -1 -[address] 29 KE ti AD 20 7- 4- 00 SI 73 WY ve OL 62 20 20 DE E [...] 0 DE RA [address] [place] 6 PH EP DE AR HE MA N 10 CY A MG OF CY TA NT BL HI ET AN A TR 00 09 09 00 15 5 EA 14 MC Ac IA 16 -1 -[address] 29 KE ti MC 80 7- 4- 00 SI 74 WY ve IN 00 20 20 DE E [...] 9 4- 00 SI 07 ON ve MD 75 20 20 DE [place] [address] 0 PH EP 10 AR HE MA N MG CY A TA OF BL CY ET NT HI AN A AL 00 09 09 00 90 30 EA 14 MC Ac MD 78 -1 -[address] 29 KE ti AZ 11 7 4 SI 71 WY ve OL 07 20 20 DE E AM 90 09 09 JR 1 1 PH AR WI MG MA LL CY IA TA M BL OF F ET CY NT HI AN A MD 37 06 09 03 30 30 EA 13 MC Ac IL 00 -1 -[address] 20 KE ti OS 00 9 4 SI 40 WY ve EC 45 20 20 DE E [...] 0 DE RA [address] [place] 6 PH EP DE AR HE MA N 10 CY A MG OF CY TA NT BL HI ET AN A MD 37 06 08 02 30 30 EA 13 MC Ac IL 00 -1 -[address] 20 KE ti OS 00 9- 7 SI 40 WY ve EC 45 20 20 DE E [...] -1 -[address] 81 SS ti MD 30 9- 7- 00 SI 04 ON [...] 23 9 7- SI 07 ON ve MD 75 20 20 DE [place] [address] 0 PH EP 10 AR HE MA N MG CY A TA OF BL CY ET NT HI AN A AL 00 08 08 00 90 30 EA 13 MC Ac MD 78 -1 -[address] 86 KE ti AZ 11 7- 7- SI 90 WY ve OL 07 20 20 DE E AM 90 09 09 JR 1 1 PH AR WI MG MA LL CY IA TA M BL OF F ET CY NT HI AN A 00 08 08 00 60 30 EA 13 MC Ac 59 -1 -[address] 86 KE ti 10 7- 7- SI 89 WY ve 50 20 20 DE E 30 [...] 00 90 30 EA 13 MC Ac MD 78 -1 -[address] 53 KE ti AZ 11 7- 0- 00 SI 33 WY ve OL 07 20 20 DE E AM 90 09 09 JR 1 1 PH AR WI MG MA LL CY IA TA M BL OF F ET CY NT HI AN A 00 07 07 00 60 30 EA 13 MC Ac 59 -1 -[address] 53 KE ti 10 7- 0- 00 SI 34 WY ve 50 20 20 DE E 30 [...] -1 -[address] 81 SS ti MD 30 9- 0- 00 SI 04 ON ve OL 73 20 20 DE OL [address] 0 PH EP TA AR HE RT MA N RA CY A TE OF 50 CY NT MG HI AN TA A B MD 37 06 07 01 30 30 EA 13 MC Ac IL 00 -1 -[address] 20 KE ti OS 00 9- 0- 00 SI 40 WY ve EC 45 20 20 DE E 50 09 09 JR OT 2 PH C AR WI 20 MA LL .6 CY IA M MG OF F CY TA NT BL HI ET AN A TR 65 07 07 00 90 30 EA 13 MC Ac AM 16 -1 -[address] 53 KE ti AD 20 7- 0- 00 SI 35 WY ve OL 62 20 20 DE E 71 09 09 JR HC 1 PH L AR WI 50 MA LL CY IA MG M OF F TA CY BL NT ET HI AN A LI 00 05 07 02 30 30 EA 12 BE Ac SI 17 -1 -[address] 81 SS ti NO 23 9- 0- 00 SI 07 ON ve MD 75 20 20 DE IL 96 09 [...] 0 DE RA [address] [place] 6 PH EP DE AR HE MA [...] AD 50 9- 2- 00 SI 39 WY ve OL 17 20 20 DE E 10 09 09 JR HC 8 PH L AR WI 50 MA LL CY IA MG M OF F TA CY BL NT ET HI AN A 00 06 07 00 60 30 EA 13 MC Ac 59 -1 -[address] 20 KE ti 10 9- 2- 00 SI 38 WY ve 50 20 20 DE E 30 09 09 JR 1 PH AR WI MA LL CY IA M OF F CY NT HI AN A LI 00 05 07 01 30 30 EA 12 BE Ac SI 17 -1 -[address] 81 SS ti NO 23 9- 2- 00 SI 07 ON ve MD 75 20 20 DE [place] [address] 0 PH EP 10 AR HE MA N MG CY A TA OF BL CY ET NT HI AN A ME 00 05 07 00 60 30 EA 12 BE Ac TO 09 -1 -[address] 81 SS ti MD 30 9- 2- 00 SI 04 ON ve OL 73 20 20 DE OL [address] 0 PH EP TA AR HE RT MA N RA CY A TE OF 50 CY NT MG HI AN TA A B MD 37 06 07 00 30 30 EA 13 MC Ac IL 00 -1 -[address] 20 KE ti OS 00 9- 2- 00 SI 40 WY ve EC 45 20 20 DE E 50 09 09 JR OT 2 PH C AR WI 20 MA LL .6 CY IA M MG OF F CY TA NT BL HI ET AN A AL 00 06 07 00 90 30 EA 13 MC Ac MD 78 -1 -[address] 20 KE ti AZ 11 9- 2- 00 SI 37 WY ve OL 07 20 20 DE E [...] 00 90 30 EA 12 MC Ac MD 78 -1 -[address] 80 KE ti AZ 11 9- 4- 00 SI 89 WY ve OL 07 20 20 DE E AM 90 09 09 JR 1 1 PH AR WI MG MA LL CY IA TA M BL OF F ET CY NT HI AN A 00 05 06 00 60 30 EA 12 MC Ac 59 -1 -[address] 80 KE ti 10 9- 4- 00 SI 88 WY ve 50 20 20 DE E 30 09 09 JR 1 PH AR WI MA LL CY IA M OF F CY NT HI AN A MD 37 02 06 03 30 30 EA 11 MC Ac IL 00 -1 -[address] 51 KE ti OS 00 7- 4- 00 SI 23 WY ve EC 45 20 20 DE E 50 09 09 JR OT 2 PH C AR WI 20 MA LL .6 CY IA M MG OF F CY TA NT BL HI ET AN A ME 00 02 06 03 60 30 EA 11 TORRES Ac TO 09 -1 -[address] 51 RV ti MD 30 7 4 SI 57 EY ve [...] 0 DE RA [address] [place] 6 PH EP DE AR HE MA N 10 CY A MG OF CY TA NT BL HI ET AN A LI 00 05 06 00 30 30 EA 12 BE Ac SI 17 -1 -[address] 81 SS ti NO 23 9- 4- 00 SI 07 ON ve MD 75 20 20 DE IL 96 09 [...] 00 90 30 EA 12 BE Ac MD 78 -1 -[address] 39 SS [...] -1 -[address] 51 RV ti MD 30 7- 3- 00 SI 57 EY ve OL 73 20 20 DE OL 31 09 09 LORRIE 0 PH DI TA AR RT MA RA CY TE OF 50 CY NT MG HI AN TA A B MD 37 02 04 02 30 30 EA 11 MC Ac IL 00 -1 -[address] 51 KE ti OS 00 7- 3- 00 SI 23 WY ve EC 45 20 20 DE E [...] -1 -[address] 51 RV ti MD 30 7- 6- 00 SI 57 EY ve OL 73 20 20 DE OL 31 09 09 LORRIE 0 PH DI TA AR RT MA RA CY TE OF 50 CY NT MG HI AN TA A B MD 37 02 03 01 30 30 EA 11 MC Ac IL 00 -1 -[address] 51 KE ti OS 00 7- 6- 00 SI 23 WY ve EC 45 20 20 DE E [...] 00 90 30 EA 11 MC Ac MD 78 -1 -[address] 96 KE ti AZ 11 9- 6- 00 SI 91 WY ve OL 07 20 20 DE E [...] 30 20 20 DE 90 09 09 WY 1 PH CH AR AE MA L CY S OF CY NT HI AN A ME 00 02 03 00 21 6 EA 11 GA Ac TH 78 -2 -[address] 58 IN ti YL 15 3- 2- 00 SI 95 EY ve MD 02 20 20 DE ED 20 09 09 WY NI 7 PH CH SO AR AE LO MA L NE CY S 4 OF MG CY NT DO HI SE AN PK A 60 02 03 01 20 10 EA 11 GA Ac 50 -2 -[address] 58 IN ti 51 3- 2- 00 SI 96 EY ve 30 20 20 DE 90 09 09 WY 1 PH CH AR AE MA L [...] -1 -[address] 51 RV ti MD 30 7- 6- 00 SI 57 EY ve OL 73 20 20 DE OL 31 09 09 LORRIE 0 PH DI TA AR RT MA RA CY TE OF 50 CY NT MG HI AN TA A B AL 00 02 02 00 90 30 EA 11 MC Ac MD 78 -1 -[address] 51 KE ti AZ 11 7- 6- 00 SI 22 WY ve OL 07 20 20 DE E AM 90 09 09 JR 1 1 PH AR WI MG MA LL CY IA TA M BL OF F ET CY NT HI AN A MD 37 02 02 00 30 30 EA [...] BL CY ET NT HI AN A MD 37 11 01 01 30 30 EA [...] 02 90 30 EA 10 MC Ac MD 78 -1 -[address] 31 KE ti AZ 11 7- 0- 00 SI 41 WY ve OL 07 20 20 DE E AM 90 08 09 JR 1 1 PH AR WI MG MA LL CY IA TA M BL OF F ET CY NT HI AN A ME 00 11 11 09 60 30 EA 10 BE Ac TO 09 -1 -[address] 31 SS ti MD 30 7- 0- 00 SI 49 ON [...] CY EA NT M HI AN A MD 37 11 01 00 30 30 EA [...] 01 90 30 EA 10 MC Ac MD 78 -1 -[address] 31 KE ti AZ 11 7- 1- 00 SI 41 WY ve OL 07 20 20 DE E [...] -1 -[address] 31 SS ti MD 30 7- 1- 00 SI 49 ON [...] NO 23 7- 1- 00 SI 48 WY ve MD 75 20 20 DE E IL 96 08 09 JR 0 PH 10 AR WI MA LL MG CY IA M TA OF F BL CY ET NT HI AN A 00 11 12 00 60 30 EA 10 MC Ac 59 -1 -[address] 31 KE ti 10 7- 8- 00 SI 55 WY ve 50 20 20 DE E 30 08 08 JR 1 PH AR WI MA LL CY IA M OF F CY NT HI AN A AL 00 11 12 00 90 30 EA 10 MC Ac MD 78 -1 -[address] 31 KE ti AZ 11 7- 4- 00 SI 41 [place] ve OL 07 20 20 DE E AM 90 08 08 JR 1 1 PH AR WI MG MA LL CY IA TA M BL OF F ET CY NT HI AN A MD 37 11 12 00 30 30 EA [...] 00 12 4 EA 10 TORRES Ac MD 78 -1 -[address] 27 RV [...] NO 23 4- 0- 00 SI 66 [place] ve MD 75 20 20 DE E IL 96 [...] -1 -[address] 27 KE ti MD 30 4- 0- 00 SI 68 [place] ve OL 73 20 20 DE E [...] 3- 3- 00 SI 91 Av ve MD 75 20 20 DE ai IL 96 [...] 00 90 30 EA 99 No Ac MD 78 -1 -[address] 84 t [...] -1 -[address] 84 t ti MD 30 3- 3- 00 SI 92 Av [...] 00 90 30 EA 99 No Ac MD 78 -1 -[address] 46 t ti [place] 11 3- 6- 00 SI 93 Av ve OL 07 20 20 DE ai AM 90 08 08 la 1 1 PH bl AR e MG MA CY TA BL OF ET CY NT HI AN A MD 37 07 09 01 30 30 EA [...] -1 -[address] 35 t ti MD 30 2- 6- 00 SI 19 Av [...] 2- 6- 00 SI 22 Av ve MD 75 20 20 DE ai IL 96 [...] 00 90 30 EA 99 No Ac MD 78 -1 -[address] 04 t [...] -1 -[address] 35 t ti MD 30 2- 8- 00 SI 19 Av [...] 2- 8- 00 SI 22 Av ve MD 75 20 20 DE ai IL 96 [...] DE ai RA 20 08 08 la [place] 6 PH bl DE AR e MA [...] CY OF CY NT HI AN A MD 37 07 08 00 30 30 EA [...] 00 90 30 EA 98 No Ac MD 78 -1 -[address] 69 t [...] -1 -[address] 35 t ti MD 30 2- 7- 00 SI 19 Av [...] 2- 7- 00 SI 22 Av ve MD 75 20 20 DE ai [place] 96 08 08 la 0 PH bl 10 AR e MA MG CY TA OF BL CY ET NT HI AN A AL 00 06 07 00 90 30 EA 98 No Ac MD 78 -1 -[address] 35 t [...] -1 -[address] 35 t ti MD 30 2- 3- 00 SI 19 Av [...] 2- 3- 00 SI 22 Av ve MD 75 20 20 DE ai IL 96 [...] 4- 2- 00 SI 96 Av ve MD 75 20 20 DE ai IL 96 [...] 00 90 30 EA 97 No Ac MD 78 -1 -[address] 98 t [...] 4- 4- 00 SI 96 Av ve MD 75 20 20 DE ai IL 96 [...] 00 90 30 EA 97 No Ac MD 78 -1 -[address] 60 t [...] DE ai ZA 80 08 08 la MD 1 PH bl IN AR e E MA 10 CY MG OF CY TA NT BL HI ET AN A NA 00 02 04 01 60 30 EA 96 No Ac MD 09 -0 -[address] 62 t [...] 5- 7- 00 SI 36 Av ve MD 75 20 20 DE ai IL 96 [...] 00 90 30 EA 97 No Ac MD 78 -1 -[address] 17 t [...] 00 60 30 EA 96 No Ac MD 09 -0 -[address] 62 t [...] 00 90 30 EA 96 No Ac MD 78 -1 -[address] 75 t [...] 5- 6- 00 SI 36 Av ve MD 75 20 20 DE ai [place] 96 [...] 00 90 30 EA 96 No Ac MD 78 -1 -[address] 31 t [...] 5- 4- 00 SI 36 Av ve MD 75 20 20 DE ai [place] 96 [...] 017 K/mm3 ed monocyt 22:30 e count Sharkey % = 6.6 % 1.7-9.3 complet 017 [...] SQUARE METERS Comment: If this patient is -[place], then multiply the Comment: result by 1.210. [...] Procedure DOS Code Location Performer Comment RADEX [id number] [facility] SPINE 7 MAINE LUMBOSACR ORTHOPAED AL 2/3 IC VIEWS CULTURE 45980 COMBINED COMBINED BACTERIAL 7 PHYSICIAN PHYSICIAN S LA S LA QUANTTATI VE COLONY COUNT URINE URNLS DIP 51815 [facility] 7 [facility] STICK/TAB INTERNAL LET RGNT MED NON-AUTO W/O MICRSCP DRUG TEST 43711 [facility] PRSMV 7 [facility] QUAL DIR INC INC OPTICAL OBS PER DAY DRUG 11435 [facility] SCREENING 7 [facility] OPIOIDS INC INC & OPIATE ANALOGS 5/MORE DRUG 08231 [facility] SCREENING 7 [facility] INC INC BENZODIAZ EPINES 1-12 DRUG 83044 [facility] SCREENING 7 [facility] INC INC CANNABINO IDS NATURAL NJX 63564 ANITA BUX DX/THER 7 MD ROSA, SBST PSC INTRLMNR LMBR/SAC W/IMG GDN COLLECTIO 93396 [facility] N VENOUS 7 [facility] BLOOD INC INC VENIPUNCT URE BASIC 34048 [facility] METABOLIC 7 [facility] PANEL [place] [address] ANITA DUFF JOINT 7 [facility] Y&/ANES/S TEROID W/MICHELLE UNCLASSIF J3490 [facility] IED DRUGS 7 [facility] INC INC UNCLASSIF J3490 [facility] IED DRUGS 7 [facility] INC INC MYOCARDIA 34846 [facility] L SPECT 7 [facility] MULTIPLE INC INC STUDIES ECHO 53799 [facility] TTHRC R-T 7 [facility] 2D INC INC W/WOM-MOD E COMPL SPEC&COLR D DUPLEX 28750 [facility] SCAN 7 [facility] EXTRACRAN INC INC IAL ART COMPL BI STUDY CV STRS 83897 [facility] TST 7 [facility] XERS&/OR INC INC RX CONT ECG TRCG ONLY CV STRS 52552 [facility] COOK TST 7 PHYSICIAN XERS&/OR S GROUP RX CONT ECG W/O I&R COLLECTIO 13585 [facility] N VENOUS 7 [facility] BLOOD INC INC VENIPUNCT URE DRUG TEST 88617 [facility] PRSMV 7 [facility] QUAL DIR INC INC OPTICAL OBS PER DAY LIPID 29217 [facility] PANEL 7 [facility] INC INC ECG 78820 [facility] ROUTINE 7 [facility] ECG INC INC W/LEAST 12 LDS TRCG ONLY W/O I&R CREATINE 86092 [facility] KINASE 6 [facility] [place] [address] [facility] TROPONIN 6 [facility] QUANTITAT INC INC ANUPAMA SMR PRIM 74270 [facility] SRC 6 [facility] GRAM/GIEM INC INC SA STAIN BCT FUNGI/ADAMA L RADIOLOGI 98663 [facility] C EXAM 6 [facility] CHEST 2 INC INC VIEWS FRONTAL&L ATERAL CREATINE 44239 [facility] KINASE MB 6 [facility] FRACTION INC INC ONLY HOSPITAL G0378 [facility] W[facility] OBSERVATI 6 [facility] ON INC INC SERVICE PER HOUR COLLECTIO 01115 [facility] N VENOUS 6 [facility] BLOOD INC INC VENIPUNCT URE BLOOD 16325 [facility] COUNT 6 [facility] COMPLETE INC INC AUTO&AUTO DIFRNTL WBC CUL BACT 77586 [facility] XCPT 6 [facility] URINE INC INC BLOOD/STO OL AEROBIC ISOL BASIC 26324 [facility] METABOLIC 6 [facility] PANEL INC INC CALCIUM TOTAL THROMBOPL 41367 [facility] ASTIN 6 [facility] TIME INC INC PARTIAL PLASMA/WH OLE BLOOD CULTURE 21399 [facility] BACTERIAL 6 [facility] BLOOD INC INC AEROBIC W/ID ISOLATES RADIOLOGI 10977 CRYSTAL ALYSON C EXAM 6 MEDICAL CHEST 2 IMAGING VIEWS ASS FRONTAL&L ATERAL HOSPITAL G0378 [facility] OBSERVATI 6 [facility] ON INC INC SERVICE PER HOUR COLLECTIO 91696 [facility] N VENOUS 6 [facility] BLOOD INC INC VENIPUNCT URE COMPREHEN 09621 [facility] SIVE 6 [facility] METABOLIC INC INC PANEL CREATINE 22019 [facility] KINASE MB 6 [facility] [place] [address] [facility] LACTATE 6 [facility] INC INC PRESSURIZ 21573 [facility] ED/NONPRE 6 [facility] SSURIZED INC INC INHALATIO N TREATMENT THERAPEUT 81212 [facility] IC 6 [facility] INJECTION INC INC IV PUSH EACH NEW DRUG NATRIURET 85814 [facility] IC 6 [facility] PEPTIDE INC INC BLOOD 09364 [facility] COUNT 6 [facility] COMPLETE INC INC AUTO&[place] [address] [facility] W[facility] TROPONIN 6 [facility] QUANTITAT INC INC ANUPAMA ECG 09720 [facility] LAL ROUTINE 6 [facility] W/LEAST P 12 LDS I&R ONLY PROTHROMB 37010 [facility] IN TIME 6 [facility] INC INC THER 43332 [facility] PROPH/DX 6 [facility] NJX IV INC INC PUSH SINGLE/1S T SBST/DRUG ECG 55297 [facility] ROUTINE 6 [facility] ECG INC INC W/LEAST 12 LDS TRCG ONLY W/O I&R CREATINE 30208 [facility] KINASE 6 [facility] TOTAL INC INC CULTURE 48313 COMBINED COMBINED BACTERIAL 6 PHYSICIAN PHYSICIAN S LA S LA QUANTTATI VE COLONY COUNT URINE BLOOD 05061 [facility] MIS OCCULT 6 [facility] PEROXIDAS INTERNAL E ACTV MED QUAL FECES 1 DETER URNLS DIP 48219 [facility] MIS 6 [facility] STICK/TAB INTERNAL LET RGNT MED NON-AUTO W/O MICRSCP CYTP C/V 48645 [facility], P[facility]LESIM AUTO THIN 6 LLC ER JR DARIUSZ LYR PREPJ SCR MNL RESCR PHYS SCREENING G0202 MAINE JADYN 6 MEDICAL MAMMOGRAP IMAGING HY NIESHA ASS INCL CAD WHEN PERFORMD DRUG TST G0477 COMBINED NATHANIEL PRESUMP;C 6 PHYSICIAN LEO PBL [place] [address] [facility] HEAD/BRAI 6 [facility] N W/O INC INC CONTRAST MATERIAL URNLS DIP 24391 [facility] 6 [facility] STICK/TAB INC INC LET REAGENT AUTO MICROSCOP Y REMOVAL 99156 [facility] VERGARA IMPACTED 6 PHYSICIAN TU CERUMEN S GROUP INSTRUMEN TATION UNILAT ECG RTN G0403 COMBINED COMBINED ECG W/12 6 PHYSICIAN PHYSICIAN LEADS SCR S LA S LA INIT PREVNTV PE W/I&R DRUG TST G0477 COMBINED COMBINED PRESUMP;C 6 PHYSICIAN PHYSICIAN PBL BEING S LA S LA READ DC OPT OBV ONLY NEEDLE 65338 [facility] CALLY EMG EA 6 N EXTREMTY NEUROLOGY W/PARASPI NL AREA COMPLETE NERVE 20143 [facility] CALLY CONDUCTIO 6 N N STUDIES NEUROLOGY 9-10 STUDIES ANES 97195 [facility] UPPER GI 6 [facility] SUKH ENDOSCOPY ANESTHESI PROXIMAL A TO DUODENUM EGD 25444 COLORECTA TOSHIA THO TRANSORAL 6 L SURGIAL BIOPSY SINGLE/[place] [address] CHIP VINCENT SURG 6 [facility] THOMAS PATHOLOGY DUBILIER GROSS&[place] [address] [facility] GAMMAGLOB 5 KELTON KELTON ULIN IGA HOLDINGS HOLDINGS IGD IGG IGM EACH IMMUNOASS 35844 [facility] AY 5 KELTON KELTON ANALYTE HOLDINGS HOLDINGS QUAL/SEMI QUAL MULTIPLE STEP ECG 65620 [facility] ROUTINE 5 EMERGENCY GREG ECG PHYS PSC W/LEAST 12 LDS I&R ONLY RADIOLOGI 77591 [facility] MONTANO C 5 RADIOLOGY [facility] EXAM[facility] ASSOC ON CHEST SINGLE VIEW FRONTAL COMPREHEN 07852 [facility] SIVE 5 [facility] METABOLIC INC INC PANEL RADEX 64298 [facility] FOOT 5 [facility] COMPLETE INC INC MINIMUM 3 VIEWS BLOOD 80334 [facility] COUNT 5 [facility] COMPLETE INC INC AUTO&AUTO DIFRNTL WBC RADIOLOGI 70506 [facility] C 5 [facility] EXAMINATI INC INC ON TIBIA & FIBULA 2 VIEWS OPHTH 75230 SCIFRES SCIFRES MEDICAL 5 ANG ANG XM&EVAL COMPRHNSV ESTAB PT 1/> HOSPITAL 72276 [facility] DISCHARGE 5 [facility] DAY INTERNAL MANAGEMEN MED T 30 MIN/< INITIAL 08734 [facility] 5 [facility] ON INTERNAL CARE/DAY MED 30 MINUTES ECG 67803 [facility] LAL ROUTINE 5 [facility] W/LEAST P 12 LDS I&[place] [address] [facility] ABDOMEN & 5 MEDICAL FAHEEM PELVIS IMAGING W/O ASS CONTRAST MATERIAL RADIOLOGI 07504 [facility] ATWOOD ALL C EXAM 5 MEDICAL CHEST 2 IMAGING VIEWS ASS FRONTAL&L ATERAL PRESSURIZ 55356 [facility] ED/NONPRE 5 [facility] SSURIZED INC INC INHALATIO N TREATMENT ANES 67109 [facility] OVIDIO TRANSURET 5 ANESTH HRAL OF THE W/URETHRO BLUE CYSTOSCOP Y NOS CYSTO 12414 [facility] CALIBRATI 5 [facility] ON DILAT INC INC URTL STRIX/[facility] 13566 [facility] DISCHARGE 5 [facility] DAY INTERNAL MANAGEMEN MED T 30 MIN/< INITIAL 75844 [facility] 5 [facility] CARE/DAY INTERNAL 50 MED MINUTES INITIAL 61568 [facility] INPATIENT 5 PHYSICIAN CAM CONSULT S GROUP NEW/ESTAB [place] [address] [place] [address] [facility] ABDOMEN & 5 MEDICAL FAHEEM PELVIS IMAGING W/O ASS CONTRAST MATERIAL CV STRS 90090 [facility] FALLU TST 5 NE HEALTH ROM XERS&/OR MEDICAL RX CONT G ECG I&R ONLY ECHO 49424 [facility] KAYLI [facility] R-T 5 [facility] 2D MEDICAL W/WOM-MOD G E COMPL SPEC&COLR D ECHO 12456 [facility] R-T 5 [facility] 2D W/WOM-MOD E COMPL SPEC&COLR D CV STRS [address] XERS&/OR RX CONT ECG TRCG ONLY MRI 55057 [facility] EUGENIO ABDOMEN 5 MEDICAL LA W/O IMAGING CONTRAST ASS MATERIAL BLOOD 15192 [facility] COUNT 5 [facility] COMPLETE INC INC AUTO&AUTO DIFRNTL WBC COLLECTIO 89447 [facility] N VENOUS 5 [facility] BLOOD INC INC VENIPUNCT URE COMPREHEN 38191 [facility] SIVE 5 [facility] [place] [address] [facility] AMYLASE 5 [place] [address] [facility] LIPASE 5 [facility] INC INC MRI 67727 [facility] LOZADA TRA SPINAL 5 [place] CANAL ORTHOPAED LUMBAR [facility]CS [facility] W/O CONTRAST MATERIAL RADIOLOGI 84999 [facility] EUGENIO C EXAM 5 MEDICAL LA CHEST 2 IMAGING VIEWS ASS FRONTAL&L ATERAL APPL 40652 [facility] MODALITY 5 [facility] 1/> AREAS INC INC ELEC STIMJ UNATTENDE D APPLICATI 56822 [facility] ON 5 [facility] MODALITY INC INC 1/> AREAS HOT/COLD PACKS APPL 21458 [facility] MODALITY 5 [facility] 1/> AREAS INC INC ULTRASOUN D EA 15 MIN APPL 51750 [facility] MODALITY 5 [facility] 1/> AREAS INC INC ULTRASOUN D EA 15 MIN APPL 16489 [facility] MODALITY 5 [facility] 1/> AREAS INC INC ULTRASOUN D EA 15 MIN APPLICATI 32669 [facility] ON 5 [facility] MODALITY INC INC 1/> AREAS HOT/COLD PACKS APPL 46800 [facility] MODALITY 5 [facility] 1/> AREAS INC INC ELEC STIMJ UNATTENDE D APPL 52091 [facility] MODALITY 5 [facility] 1/> AREAS INC INC ELEC STIMJ UNATTENDE D APPLICATI 63524 [facility] ON 5 [facility] MODALITY INC INC 1/> AREAS HOT/COLD PACKS APPL 30271 [facility] MODALITY 5 [facility] 1/> AREAS INC INC ULTRASOUN D EA 15 MIN LOCM Q9967 [facility] 300-399 5 [facility] MG/ML INC [place] [address] MA[facility] EUGENIO ABDOMEN & 5 MEDICAL LA PELVIS IMAGING W/CONTRAS ASS T MATERIAL APPL 29213 [facility] MODALITY 5 [facility] 1/> AREAS INC INC ELEC STIMJ UNATTENDE D COLLECTIO 18061 [facility] N VENOUS 5 [facility] [place] [address] [facility] UREA 5 [facility] NITROGEN INC INC QUANTITAT ANUPAMA APPL 68155 M[facility] MODALITY 5 [facility] 1/> AREAS INC INC ULTRASOUN D EA 15 MIN APPLICATI 70952 [facility] ON 5 [facility] MODALITY INC INC 1/> AREAS HOT/COLD PACKS CREATININ 28359 [facility] E BLOOD 5 [facility] INC INC APPLICATI 81727 [facility] ON 5 [facility] MODALITY INC INC 1/> AREAS HOT/COLD PACKS APPL 42929 M[facility] MODALITY 5 [facility] 1/> AREAS INC INC ULTRASOUN D EA 15 MIN APPL 17061 [facility] MODALITY 5 [facility] 1/> AREAS INC INC ELEC STIMJ UNATTENDE D PHYSICAL 79475 [facility] THERAPY 5 [facility] EVALUATIO INC INC N COMPUTER- 64185 [facility] EUGENIO AIDED 5 MEDICAL LA DETECTION IMAGING ASS SCREENING MAMMOGRAP HY SCREENING G0202 [facility]INE EUGENIO 5 MEDICAL LA MAMMOGRAP IMAGING HY NIESHA ASS INCL CAD WHEN PERFORMD RADEX 75200 [facility] EUGENIO SPINE 5 MEDICAL LA LUMBOSACR IMAGING AL ASS MINIMUM 4 VIEWS TYMPANOME 32948 JAI ARRIAGA TRY 4 TU RAIMUNDO DISTORT 06312 JAI CORINA PRODUCT 4 TU RAIMUNDO EVOKED OTOACOUST IC EMISNS LIMITD COMPRE 04907 JAI ARRIAGA AUDIOMETR 4 TU RAIMUNDO Y THRESHOLD EVAL SP RECOGNIJ DEBRIDEME 57736 JAI VERGARA NT 4 MASTOIDEC LILI CAVITY SIMPLE O2 CONC 1 E1390 [facility] GOUL[facility] DEL PORT 4 DISCOUNT DISCOUNT 85%/>02 [facility] FLW RATE PORTABLE K0738 GOUL[facility] GOULDS GASEOUS 4 DISCOUNT DISCOUNT O2 SYS MEDICAL MEDICAL RENTAL; HOME COMPRESSO R PORTABLE K0738 GOULDS GOULDS GASEOUS 4 DISCOUNT DISCOUNT O2 SYS MEDICAL MEDICAL RENTAL; HOME COMPRESSO R O2 CONC 1 E1390 GOULDS GOULDS DEL PORT 4 DISCOUNT DISCOUNT 85%/>02 [facility] FLW RATE ECG 12013 [facility] ROUTINE 4 HEART SOLEDAD ECG SPECIALIS W/LEAST TS, 12 LDS I&R ONLY MONITOR 57927 WYATT SCHNEIDER T ID& 4 LATERALIZ ATION SEIZURE FOCUS EEG ELECTROEN 93232 WYATT Espinosa CEPHALOGR 4 AM W/REC AWAKE&ASL EEP ARTL 90013 KARLY BRANDT CATHJ/CAN 4 ANAHI ANAHI NULJ MNTR/WEBER SFUSION SPX PRQ LEVEL III 82978 CHIPPS VINCENT SURG 4 [facility] BANNER GROSS&HENRRY ROSCOPIC EXAM DECALCIFI 29512 [facility]IPPS VINCENT CATION 4 [facility]OM[facility] PROCEDURE DUBILIER SBSQ 72499 [facility] 4 YUR YUR CARE/DAY 35 MINUTES TEAEC 69535 WILBERT VIRK W/PATCH 4 CARDIOTHO ROHAN GRF RACIC CAROTID SURGI VERTB SUBCLAV NECK INC ANESTHESI 27335 KARLY BRANDT A MAJOR 4 ANAHI ANAHI VESSELS NECK NOS RADIOLOGI 26958 MONTANO MONTANO C EXAM 4 SHANNON SHANNON CHEST 2 VIEWS FRONTAL&L ATERAL ECG 26536 [place] ARMENDARIZ ROUTINE 4 HEART SOLEDAD ECG SPECIALIS W/LEAST TS, 12 LDS I&[place] [address] OLIVER ADA OLIVER ADA ANGIOGRAP 4 HY NECK W/CONTRAS T/[place]Q 0[address]16 ARMENDARIZ ARMENDARIZ TRLUML 4 [facility] CORONARY STENT W/ANGIO ONE ART/BRNCH CATH PLMT 07835 ARMENDARIZ ARMENDARIZ L HRT & 4 [facility] ARTS W/NJX & ANGIO IMG S&I RADIOLOGI 27522 CHARIS CHARIS C EXAM 4 ANAHI ANAHI KNEE COMPLETE 4/MORE VIEWS DUPLEX 16708 MOOSE VIRK SCAN 4 ROHAN ROHAN EXTRACRAN IAL ART COMPL BI STUDY INJECTION J3301 [place] LATTERMAN 4 MEDICAL N CHR TRIAMCINO SERV LONE FOUNDATIO ACETONIDE N NOS 10 MG ARTHROCEN 47189 [place] [facility] TESIS 4 MEDICAL N CHR ASPIR&/IN SERV J MAJOR FOUNDATIO JT/BURSA N W/O US ARTHROCEN 23062 [place] [facility] TESIS 4 MEDICAL N CHR ASPIR&/IN SERV J INTERM FOUNDATIO JT/BURS N W/O US RADEX 67985 [facility] 4 Y Y COMPLETE [facility] MINIMUM 3 VIEWS DRUG SCR G0434 ADRIEL HAM ADRIEL HAM NOT 4 CHROMATOG RAPHIC; ANY NUMBER PT ENC COMPREHEN 86305 [facility] SIVE 3 [facility] METABOLIC INC INC PANEL LIPID 38780 [facility] PANEL 3 [facility] INC INC SCREENING G0202 [facility] 3 [facility] MAMMOGRAP INC INC HY NIESHA INCL CAD WHEN PERFORMD COMPUTER- 30215 [facility] AIDED 3 [facility] DETECTION INC INC SCREENING MAMMOGRAP HY CYTP C/V 45577 PICKLESIM PICKLESIM AUTO THIN 3 ER JR DARIUSZ ER JR DARIUSZ LYR PREPJ SCR MNL RESCR PHYS BLOOD 71739 [facility] ELIZABETH OCCULT 3 AUDRA AUDRA PEROXIDAS E ACTV QUAL FECES 1 DETER URNLS DIP 90811 [facility] ELIZABETH 3 AUDRA AUDRA STICK/TAB LET RGNT NON-AUTO W/O MICRSCP DUPLEX 11882 [facility] SCAN 3 [facility] EXTRACRAN INC INC IAL ART COMPL BI STUDY MYOCARDIA 74831 EUGENIO EUGENIO L SPECT 3 LA LA SINGLE STUDY AT REST OR STRESS CV STRS 99708 [facility] TST 3 PHYSICIAN PHYSICIAN XERS&/OR S GROUP S GROUP RX CONT ECG W/O I&R RADIOLOGI 31357 EUGENIO EUGENIO C 3 LA LA EXAMINATI ON CHEST SINGLE VIEW FRONTAL ANES 58638 [facility] LOWER 3 ANESTH INTESTINE OF THE BLUE ENDOSCOPY DISTAL DUODENUM COLONOSCO 79095 [facility] PY FLX DX 3 [facility] W/COLLJ INC INC SPEC WHEN [facility]MD [facility]OSP[facility] 71954 [facility] DISCHARGE 3 ANN ANN DAY MANAGEMEN T 30 MIN/< SBSQ 01167 [facility] 3 JR SOLEDAD WALDRON SOLEDAD CARE/DAY 25 MINUTES INITIAL 40625 [facility] SCHULSTAD INPATIENT 3 LUDWIN LUDWIN CONSULT NEW/ESTAB PT 40 MIN SBSQ 54614 [facility] 3 JR SOLEDAD WALDRON SOLEDAD CARE/DAY 25 MINUTES SBSQ 18956 [facility] 3 JR SOLEDAD ROWE CARE/[place] [address] [place] [address] EUGENIO EUGENIO ABDOMEN & 3 LA LA PELVIS W/CONTRAS T MATERIAL INITIAL 51268 [facility] 3 JR SOLEDAD ROWE CARE/DAY 50 MINUTES LUMB L0627 [facility] DNENIS ORTHOSIS 2 HOME HOME SAGIT MEDICAL MEDICAL CNTRL EQUIPME EQUIPME RIGID A&P PANEL PREFAB RADEX 35811 [facility] SPINE 2 MEDICAL LA LUMBOSACR IMAGING AL ASS MINIMUM 4 VIEWS RAD[facility]OLOGI 35976 [facility] C EXAM 2 MEDICAL LA CHEST 2 IMAGING VIEWS ASS FRONTAL&L ATERAL RADIOLOGI 67977 [facility] C 2 [facility] EXAMINATI INC INC ON KNEE [address] [facility] 2 JR SOLEDAD ROWE STICK/TAB LET RGNT NON-AUTO W/O MICRSCP RADEX 23429 [facility] UPPER GI 2 [facility] W/WO INC INC GLUCAGON/ [place] [address] [facility] EUGENIO TRACT 2 MEDICAL LA UPPER IMAGING W/WO [place] DELAY[place] W/[place] [address] [facility] EUGENIO ABDOMINAL 2 MEDICAL LA REAL IMAGING TIME ASS W/IMAGE DOCUMENTA TION DUPLEX 28306 [facility] SCAN 2 [facility] EXTRACRAN INC INC IAL ART COMPL BI STUDY SCREENING G0202 [facility] 2 [facility] MAMMOGRAP INC INC HY NIESHA INCL CAD WHEN PERFORMD COMPUTER- 40710 [facility] AIDED 2 [facility] DETECTION INC INC SCREENING MAMMOGRAP HY LIPID 21808 [facility] PANEL 2 [facility] INC INC BLOOD 03844 [facility] COUNT 2 [facility] COMPLETE INC INC AUTO&AUTO DIFRNTL WBC COMPREHEN 58411 [facility] SIVE 2 [facility] METABOLIC INC INC PANEL PHYSICAL 41147 [facility] THERAPY 1 [facility] EVALUATIO INC INC N DUPLEX 54915 RASTAFARIAN IMAM MOH SCAN 1 CARDIOTHO EXTRACRAN RACIC IAL [place] [address] CHIPPS DOUGHERTY SURG 1 SHIRLEY & ALEXUS PATHOLOGY DUBILIER GROSS&[place] [address] [facility] W[facility] INFUSION 1 [facility] THERAPY INC INC PROPHYLAX IS/DX EA HOUR COLSC FLX 12960 Ten ALANIS 1 ANNABELLE MASCORRO W/ZINA CABRERA PSC LESION BY HOT BX FORCEPS ENDOSCOPI 4542 [facility] C 1 [facility] POLYPECTO INC INC MY OF LARGE INTESTINE SCREENING G0202 MAINE EUGENIO 1 MEDICAL LA MAMMOGRAP IMAGING HY NIESHA ASS INCL CAD WHEN PERFORMD COMPUTER- 96772 [facility] EUGENIO AIDED 1 MEDICAL LA DETECTION IMAGING ASS SCREENING MAMMOGRAP HY BLOOD 69297 [facility] COUNT 0 [facility] COMPLETE INC INC AUTO&AUTO DIFRNTL WBC BASIC 00497 [facility] METABOLIC 0 [facility] PANEL INC INC CALCIUM TOTAL LEVEL III 83275 CHIPPS VINCENT SURG 0 [facility]LEY & THOMAS PATHOLOGY DUBILIER GROSS&HENRRY ROSCOPIC EXAM DECALCIFI 18550 CHIPPS VINCENT CATION 0 SHIRLEY & THOMAS PROCEDURE DUBILIER ARTL 04514 CENTRAL BROSTER CATHJ/CAN 0 [place] THO NULJ ANESTHESI MNTR/WEBER A SFUSION SPX PRQ ANESTHESI 21955 CENTRAL BEAN CHR A MAJOR 0 [place] VESSELS ANESTHESI NECK NOS A EEG 73630 FARZANA CARD JOSS NONINTRAC 0 STEPHIE CABRERA RANIAL PSC SURGERY TEAEC 43358 RASTAFARIAN IMAM MOH W/PATCH 0 CARDIOTHO GRF RACIC CAROTID SURGI VERTB SUBCLAV NECK INC ECG 34459 [facility] ROUTINE 0 ECG CARDIOLOG W/LEAST Y CONSULT 12 LDS I&R ONLY ANGIOGRAP 78074 CENTRAL CENTRAL HY 0 RASTAFARIAN [facility] CEREBRAL BILATERAL RS&I ANGIOGRAP 22762 CEN[facility]AL CENTRAL HY 0 RASTAFARIAN [facility] CERVICAL BILATERAL RS&I SLCTV 78322 CENTRAL CENTRAL CATHJ 1ST 0 RASTAFARIAN RASTAFARIAN 2ND [facility] SLCTV 49219 CENTRAL CENTRAL CATHJ EA 0 RASTAFARIAN RASTAFARIAN 1ST [facility]D [facility] HOSP [facility] /[facility] BRV[facility] ARTERIOGR 8841 CENTRAL CENTRAL APHY OF 0 RASTAFARIAN RASTAFARIAN [facility]ERE[facility] HOSP ARTERIES CREATININ 56744 CENTRAL CENTRAL E BLOOD 0 RASTAFARIAN [facility]OSP PROTHROMB 56594 CENTRAL CENTRAL IN TIME 0 RASTAFAR[facility]OS[facility] COLLECTIO 43950 CENTRAL CENTRAL N VENOUS 0 RASTAFARIAN RASTAFARIAN BLOOD HOSP HOSP [facility] [address] [facility] DISCHARGE 0 [facility] INTERNAL MANAGEMEN MED T 30 MIN/< SBSQ 77018 [facility] 0 [facility]/DAY INTERNAL 25 MED MINUTES INITIAL 83201 [facility] 0 [facility]/DAY INTERNAL 50 MED MINUTES RADIOLOGI 63974 MAINE LORE C EXAM 0 MEDICAL MARK CHEST 2 IMAGING VIEWS ASS FRONTAL&L ATERAL RADIOLOGI 48320 MAINE LORE C EXAM 0 MEDICAL MARK CHEST 2 IMAGING VIEWS ASS FRONTAL&L ATERAL MRI ANY 56053 TAO C EUGENIO JT LOWER 0 EUGENIO LA EXTREM W/O CONTRAST MATRL DUPLEX 38555 MAINE EUGENIO SCAN 0 MEDICAL LA EXTRACRAN IMAGING IAL ART ASS COMPL BI STUDY COMPREHEN 80256 [facility] SIVE [facility] [address] [facility] THYROID 0 [facility] STIMULATI INC INC NG HORMONE TSH LIPID 95088 [facility] PANEL 0 [facility] INC INC BLOOD 87089 [facility] COUNT 0 [facility] COMPLETE INC INC AUTO&AUTO DIFRNTL WBC CREATINE 88478 [facility] KINASE 0 [facility] TOTAL INC INC FLUORESCE 44217 [facility] NT [facility] NONNFCT INC INC AGT ANTB TITER EA ANTIBODY SCREENING 86643 GEM BECKER, 0 MEDICAL TAO MAMMOGRAP IMAGING HY ASSOCIATE BILATERAL S COMPUTER- 79338 GEM BECKER, AIDED 0 MEDICAL TAO DETECTION IMAGING ASSOCIATE SCREENING S MAMMOGRAP HY CREATININ 55759 [facility] E BLOOD 0 [place] [address] GEM BECKER, ANGIOGRAP 0 MEDICAL TAO HY NECK IMAGING W/CONTRAS ASSOCIATE T/[place] [address] [facility] UREA 0 [facility] NITROGEN INC INC QUANTITAT ANUPAMA ALPHA-1-A 19787 [facility] NTITRYPSI 0 [facility] N INC INC PHENOTYPE ANTIBODY 50969 [facility] ASPERGILL 0 [facility] US INC INC ALPHA-1-A 77008 [facility] NTITRYPSI 0 [facility] N TOTAL INC INC ANTINUCLE 34807 [facility] AR 0 [facility] ANTIBODIE INC INC S JEAN-PIERRE ANTIBODY 52662 [facility] IDENTIFIC 0 [facility] ATION INC INC LEUKOCYTE ANTIBODIE S ALLERGEN 08511 [facility] SPECIFIC 0 [facility] IGG INC INC NORMA/[place] [address] [facility] THYROID 0 [facility] STIMULATI [place] [address] [facility] GAMMAGLOB 0 [facility] ULIN IGE INC INC COMPLEMEN 99716 [facility] T 0 [facility] FIXATION INC INC TESTS EACH ANTIGEN DUPLEX 07446 EGM BECKER, SCAN 0 MEDICAL TAO EXTRACRAN IMAGING IAL ART ASSOCIATE COMPL BI S STUDY C-REACTIV 11852 [facility] E PROTEIN 0 [facility] HIGH INC INC SENSITIVI TY IMMUNODIF 78280 [facility] FUSION 0 [facility] GEL INC INC DIFFUSION QUAL EA AG/ANTBDY CULTURE 62437 [facility] FNGI 9 [facility] MEM HOSP MOLD/YEAS INC INC [place] B[place] [address] PATHOLOGY PATHOLOGY SURG 9 & & PATHOLOGY CYTOLOGY CYTOLOGY LAB LAB GROSS&HENRRY ROSCOPIC EXAM CYTP 77414 PATHOLOGY PATHOLOGY SLCTV 9 & & CELL CYTOLOGY CYTOLOGY ENHANCEME LAB LAB [place] INTER[place] XCP[place] [address] [facility] INFUSION 9 [facility] THERAPY INC INC PROPHYLAX IS/DX EA HOUR CUL BACT 11869 [facility] XCPT 9 [facility] URINE INC INC BLOOD/STO OL AEROBIC ISOL CULTURE 29957 [facility] TUBERCLE/ 9 [facility] OTH INC INC ACID-FAST BACILLI ANY ISOL [facility] 6[facility] W/BRNCL 9 [facility] [place] [address] [facility] WUON INFUSION 9 [facility] THERAPY/P INC INC ROPHYLAXI S /DX 1ST TO 1 HR SMR PRIM 98839 [facility] SRC 9 [facility] GRAM/GIEM INC INC SA STAIN BCT FUNGI/ADAMA L [facility] 28398 RASTAFARIAN FLOWERS INCL 9 CARDIOTHO SOLEDAD FLUOR RACIC GDNCE DX SURGI W/CELL WASHG SPX CLOSED 3324 [facility] BIOPSY OF 9 [facility] [place] [address] [facility] W[facility] UREA 9 [facility] NITROGEN INC INC QUANTITAT ANUPAMA DETER 59809 [facility] MALDISTRI 9 [facility] BJ OF INC INC INSPIRED GAS N WSHOT CURVE DETER 82235 [facility] CHRISTIANSON AIRWY 9 [facility] VOL 1 PROF SERV BRITANY TSTS BRNCDILAT 61282 [facility] CHRISTIANSON RSPSE 9 [facility] PRE&POST- PROF SERV BRNCDILAT ADMN FUNCTIONA 84823 [facility] CHRISTIANSON L 9 [facility] RESIDUAL [facility] CAPACITY PROF SERV OR RESIDUAL VOLUME CT THORAX 68486 [facility] WALLACE 9 [facility] W/CONTRAS INC INC T MATERIAL 3D 51287 [facility] RENDERING 9 [facility] INC INC W/INTERP& POSTPROC DIFF WORK STATION CREATININ 68404 [facility] E BLOOD 9 [facility] INC INC CREATINE 30100 [facility] KINASE 9 [facility] TOTAL INC INC LIPID 92459 [facility] W[facility] PANEL 9 [facility] INC INC COMPREHEN 98443 [facility] SIVE 9 [facility] METABOLIC INC INC PANEL RADIOLOGI 33887 [facility] BYR[facility] EXAM 9 MEDICAL TAO KNEE IMAGING COMPLETE ASSOCIATE 4/MORE S VIEWS RADEX 33092 [facility] BECKER ANKLE 9 MEDICAL TAO COMPLETE IMAGING MINIMUM 3 ASSOCIATE VIEWS S RADIOLOGI 08041 [facility] Caal 9 [facility] EXAMINATI INC INC ON KNEE 3 VIEWS RADIOLOGI 56002 [facility] C 9 [facility] EXAMINATI INC INC ON KNEE 1/2 VIEWS RADIOLOGI 64551 [facility] Caal EXAM 9 [facility] BOTH INC INC KNEES STANDING ANTEROPOS T RADIOLOGI 09457 Ten ALEXANDRA EXAM 9 MEDICAL TAO CHEST 2 IMAGING VIEWS ASSOCIATE FRONTAL&L S ATERAL RADIOLOGI 63337 [facility] C EXAM 9 [facility] CHEST 2 INC INC VIEWS FRONTAL&L ATERAL IAADI 25327 [facility] AWLLACE INFFLUENZ 9 [facility] A A VIRUS INC INC IAADI 17322 [facility] INFLUENZA 9 [facility] B VIRUS INC INC COMPUTER- 09285 MAINE FAB TORREZ 9 MEDICAL HARMAN P DETECTION IMAGING ASSOCIATE SCREENING S MAMMOGRAP HY SCREENING 28414 MAINE Marty TORREZ MEDICAL HARMAN P MAMMOGRAP IMAGING HY ASSOCIATE BILATERAL S CT PELVIS 95640 [facility] CRUZ MEDICAL HARMAN P W/CONTRAS IMAGING T ASSOCIATE MATERIAL S 3D 57372 [facility] RENDERING 8 [facility] INC INC W/INTERP& [place] [address] GEM LORE, ABDOMEN 8 MEDICAL HARMAN P W/CONTRAS IMAGING T ASSOCIATE MATERIAL S CREATININ 44263 [facility] Tovar BLOOD 8 [place] [address] [facility] UREA 8 [facility] NITROGEN INC INC QUANTITAT ANUPAMA GASTRIC 06807 GEM EUGENIO, EMPTYING 8 MEDICAL TAO IMAGING [place] [address] [facility] AMYLASE 8 [facility] INC INC COMPREHEN 89511 [facility] SIVE 8 [facility] METABOLIC INC INC PANEL BLOOD 78364 [facility] COUNT 8 [facility] COMPLETE INC INC AUTO&AUTO DIFRNTL WBC RADEX ABD 89022 [facility] COMPL 8 [facility] AQT ABD INC INC W/S/E/D VIEWS 1 [place] [address] [facility] LIPASE 8 [facility] INC INC WRIST L3908 [facility] 8 BRACE BRACE ORTHOSIS PROSTH PROSTH EXT INC INC CONTROL COCK-UP PREFAB LUMB L0627 [facility] 8 BRACE BRACE SAGIT PROSTH PROSTH CNTRL INC INC RIGID A&[place] [address] [facility] THER 8 [facility] PROPH/DX INC [place] 1ST >1 [place] [address] PATHOLOGY PATHOLOGY SURG 8 & & PATHOLOGY CYTOLOGY CYTOLOGY LAB LAB GROSS&HENRRY ROSCOPIC EXAM EGD 54526 [place] JEFFERY, TRANSORAL 8 MEDICAL SANTHOSH BIOPSY SERV SINGLE/MU FOUNDATIO LTIPLE SPECIAL 96196 PATHOLOGY PATHOLOGY STAIN 8 & & GROUP 1 CYTOLOGY CYTOLOGY MICROORGA LAB LAB [facility] I&R SPCL STN 18100 PATHOLOGY PATHOLOGY 2 I&R 8 & & EXCPT CYTOLOGY CYTOLOGY MICROORG/ LAB LAB ENZYME/IM CYT CUL 90237 [facility] PRSMPTV 8 [facility] PTHGNC INC INC ORGANISMS SCR DNS CHART ESOPHAGOG 4516 [facility] ASTRODUOD 8 [facility] ENOSCOPY INC INC WITH CLOSED BIOPSY US SOFT 07023 [facility] TISSUE 8 [facility] HEAD & INC INC NECK REAL TIME IMGE DOCM APPL 97378 [facility] MODALITY 8 [facility] 1/> AREAS INC INC VASOPNEUM ATIC DEVICES APPL 28624 [facility] MODALITY 8 [facility] 1/> AREAS INC INC ELEC STIMJ UNATTENDE D THERAPEUT 30284 [facility] IC PX 1/> 8 [facility] AREAS INC INC EACH 15 MIN EXERCISES PHYSICAL 25446 [facility] THERAPY 8 [facility] [place] [address] [facility] 1/> AREAS 8 [facility] EACH 15 INC INC MIN NEUROMUSC REEDUCA CYTP 35182 AMERIPATH MONY, CERV/VAG 8 [place] INC FRANCISCO JAVIER E AUTO THIN LAYER PREP MNL SCREEN COMPREHEN 30773 [facility] SIVE 8 [facility] [place] [address] [facility] THYROID 8 [facility] STIMULATI INC INC NG HORMONE TSH BLOOD 51319 [facility] COUNT 8 [facility] COMPLETE INC INC AUTO&AUTO DIFRNTL WBC LIPID 80499 [facility] PANEL 8 [facility] INC INC Encounters Encounter Start End Date Code Location Performer Type Date OFFICE 86984 MIMI SALGADO OUTPATIEN 7 7 MAINE T VISIT ORTHOPAED 15 IC MINUTES OFFICE 39898 [facility] HALI OUTPATIRAÚL 7 7 IDANHA T VISIT INTERNAL 15 MED MINUTES [facility] - 7 7 [facility] OUTPATIEN INC T OFFICE 96892 ANITA GILLESPIE OUTPATIEN 7 7 MD ROSA, T VISIT PSC 15 MINUTES OFFICE 72326 [facility] OUTPATIEN 7 7 [facility] T VISIT INC 10 MINUTES [facility] - 7 7 [facility] OUTPATIEN INC T [facility] - 7 7 [facility] OUTPATIEN INC T [facility] - 7 7 [facility] OUTPATIEN INC T OFFICE 63304 ANITACHRIS LEE OUTPATIEN 7 7 MD ROSA, T VISIT PSC 10 MINUTES [facility] - 7 7 [facility] OUTPATIEN INC [facility] - 7 7 [facility] OUTPATIEN INC T OFFICE 78641 ANITA GILLESPIE OUTPATIEN 7 7 MD ROSA, T VISIT PSC 15 MINUTES [facility]OSPITAL [facility] - 7 7 [facility] OUTPATIEN INC T OFFICE 07744 [facility] OUTPATIEN 7 7 [facility] T VISIT 5 INC MINUTES [facility]OSP[facility] - 7 7 [facility] OUTPATIEN INC [facility] - 7 7 [facility] OUTPATIEN INC [facility] - 7 7 [facility] OUTPATIEN INC T EMERGENCY 17566 [facility] DEPT 6 6 [facility] VISIT INC HIGH SEVERITY& THREAT [facility] - 6 6 [facility] OUTPATIEN INC T OFFICE 62203 [facility] MANDUJANO MIS OUTPATIEN 6 6 IDANHA T VISIT INTERNAL 25 MED MINUTES OFFICE 00937 [facility] BESSON OUTPATIEN 6 6 [facility] VISIT INTERNAL 15 MED MINUTES EMERGENCY 52878 DULCE MALDONADO [address] [facility] DEPARTMEN S, [facility] T VISIT HIGH/URGE NT SEVERITY [facility]OSPITAL [facility] - 6 6 [facility] OUTPATIEN INC T EMERGENCY 06572 [facility] 6 6 [facility] DEPARTMEN INC T VISIT LOW/MODER SEVERITY OFFICE 11454 [facility] VERGARA OUTPATIEN 6 6 PHYSICIAN TU T VISIT S GROUP 15 MINUTES OFFICE 69695 [facility] BESSON OUTPATIEN 6 6 [facility] T VISIT INTERNAL 25 MED MINUTES OFFICE 72957 [facility] CALLY OUTPATIEN 6 6 N T VISIT NEUROLOGY 10 MINUTES OFFICE 73764 [facility] CALLY CONSULTAT 6 6 N ION NEUROLOGY NEW/ESTAB PATIENT 60 MIN HOSPITAL CENTRAL - 6 6 RASTAFARIAN OUTPATIEN HOSP T OFFICE 91121 [facility] BESSON OUTPATIEN 5 5 IDANHA ANN T VISIT INTERNAL 25 MED MINUTES EMERGENCY 05234 [facility] DEPT 5 5 EMERGENCY GREG VISIT PHYS PSC HIGH SEVERITY& THREAT [facility] - 5 5 [facility] OUTPATIEN INC T EMERGENCY 68883 [facility] 5 5 [facility] DEPARTMEN INC T VISIT LOW/MODER SEVERITY EMERGENCY 45984 DULCE MALDONADO DEPT 5 5 PHYSICIAN HENRRY VISIT S, PLLC HIGH SEVERITY& THREAT FUNCJ OFFICE 15169 [facility] BESSON OUTPATIEN 5 5 IDANHA ANN T VISIT INTERNAL 15 MED MINUTES [facility]OSPITAL [facility] - 5 5 [facility] INPATIENT INC EMERGENCY 55860 [facility] DEPT 5 5 PHYSICIAN HENRRY VISIT S, PLLC HIGH SEVERITY& THREAT FUNCJ OFFICE 08905 [facility] BESSON OUTPATIEN 5 5 IDANHA ANN T VISIT INTERNAL 15 MED MINUTES EMERGENCY 37867 DULCE ABRAZO [facility] 5 5 PHYSICIAN HENRRY DEPARTMEN S, [facility] T VISIT HIGH/URGE NT SEVERITY [facility]OSPITAL [facility] - 5 5 [facility] OUTPATIEN INC T OFFICE 94092 [facility] BESSON OUTPATIEN 5 5 [facility] ANN T VISIT INTERNAL 15 MED MINUTES EMERGENCY 34857 DULCE AVELAR DEPT 5 5 PHYSICIAN LUEVANO VISIT S, PLLC HIGH SEVERITY& THREAT FUNCJ OFFICE 29629 SHAMIKA LEE BUX ANJ OUTPATIEN 5 5 MD T NEW 30 MINUTES [facility] - 5 5 [facility] OUTPATIEN T OFFICE 91525 [facility] FALLUJI CONSULTAT 5 5 [facility] ION MEDICAL NEW/ESTAB G PATIENT 60 MIN OFFICE 42447 [facility] CHOLO TOD OUTPATIEN 5 5 PHYSICIAN T VISIT S GROUP 15 MINUTES HOSPITAL [facility] - 5 5 [facility] OUTPATIEN INC T OFFICE 17798 [facility] TRA OUTPATIEN 5 5 [place] T VISIT ORTHOPAED 15 [facility]CS [facility] - 5 5 [facility] OUTPATIEN INC T OFFICE 43394 [facility] CHOLO TOD CONSULTAT 5 5 PHYSICIAN ION S GROUP NEW/ESTAB PATIENT 60 MIN OFFICE 34424 [facility] BESSON OUTPATIEN 5 5 [facility] ANN T VISIT INTERNAL 15 MED MINUTES OFFICE 37385 [facility] LO[facility] TRA OUTPATIEN 5 5 [place] T VISIT ORTHOPAED 15 ICS [facility] - 5 5 [facility] OUTPATIEN INC [facility] - 5 5 [facility] OUTPATIEN [facility] - 5 5 [facility] OUTPATIEN INC T OFFICE 30189 [facility] CAMERON OUTPATIEN [address] [facility] 20 HOSPITAL MINUTES [facility] - 5 5 [facility] OUTPATIEN INC T OFFICE 47928 [facility] LOZADA TRA CONSULTAT 5 5 [place] ION ORTHOPAED NEW/ESTAB ICS PLC PATIENT 60 MIN OFFICE 42958 [facility] BESSON OUTPATIEN 5 5 [facility] T VISIT INTERNAL 25 MED MINUTES HOSPITAL [facility] - 5 5 [facility] OUTPATIEN INC T OFFICE 79362 JAI VERGARA OUTPATIEN 4 4 T NEW 30 MINUTES OFFICE 64117 [facility] BESSON OUTPATIEN 4 4 [facility] ANN T VISIT INTERNAL 25 MED MINUTES OFFICE 03430 MOOSE VIRK OUTPATIEN 4 4 ROHAN ROHAN T VISIT 25 MINUTES OFFICE 28851 DIEGO WEBB OUTPATIEN 4 4 MEDICAL N CHR T VISIT SERV 15 FOUNDATIO MINUTES N OFFICE 66897 UNIVERSIT OUTPATIEN 4 4 Y T VISIT 5 HOSPITAL [facility] UNIVERSIT - 4 4 Y OUTPATIEN HOSPITAL T OFFICE 66901 JUSTICE RENDON CONSULTAT 4 4 ANN ANN ION NEW/ESTAB PATIENT 40 MIN OFFICE 75936 PETTEY PETTEY OUTPATIEN 4 4 JAM JAM T NEW 30 MINUTES OFFICE 08500 ADRIEL HAM ADRIEL HAM OUTPATIEN 4 4 T NEW 45 MINUTES OFFICE 82580 BESSON BESSON OUTPATIEN 4 4 ANN ANN T VISIT 15 MINUTES OFFICE 43062 ELIZABETH JOHNSON OUTPATIEN 4 4 AUDRA AUDRA T VISIT 15 MINUTES HOSPITAL [facility] - 3 3 [facility] OUTPATIEN INC T PERIODIC 30716 ELIZABETH JOHNSON PREVENTIV 3 3 AUDRA AUDRA E MED EST PATIENT 40-64YRS OFFICE 42006 ADIS ADIS OUTPATIEN 3 3 JR LA JR LA T VISIT 15 MINUTES HOSPITAL [facility] - 3 3 [facility] OUTPATIEN INC T OFFICE 35040 MCKEMIE MCKEMIE OUTPATIEN 3 3 JR SOLEDAD WALDRON SOLEDAD T VISIT 15 MINUTES OFFICE 80433 MCKEMIE MCKEMIE OUTPATIEN 3 3 JR SOLEDAD ROWE T VISIT 15 MINUTES Inpatient NORA Lal MD (IN) 3 12:54 3 08:20 [facility] EMERGENCY 02808 O'RACHELLE O'RACHELLE DEPT 3 3 CLIARE CLAIRE VISIT HIGH SEVERITY& THREAT FUNCJ OFFICE 17528 MCKEMIE MCKEMIE OUTPATIEN 3 3 JR SOLEDAD ROWE T VISIT 15 MINUTES Emergency NIKKO Maldonado MD (ER) 3 18:31 3 20:05 [facility] - 3 3 [facility] OUTPATIEN INC T EMERGENCY 97352 DENISSE MALDONADO 3 3 HENRRY HENRRY DEPARTMEN T VISIT MODERATE SEVERITY EMERGENCY 55452 [facility] 3 3 [facility] DEPARTMEN INC T VISIT LOW/MODER SEVERITY [facility]OSPITAL [facility] - 3 3 [facility] OUTPATIEN INC T EMERGENCY 78225 SUSHIL EUBANKS DEPT 3 3 EMERGENCY VISIT SERVICES HIGH SEVERITY& THREAT FUNCJ OFFICE 32609 MCKEMIE MCKEMIE OUTPATIEN 2 2 JR SOLEDAD ROWE T VISIT 15 MINUTES EMERGENCY 50486 SUSHIL EUBANKS 2 2 EMERGENCY DEPARTMEN SERVICES T VISIT HIGH/URGE NT SEVERITY [facility]OSPITAL [facility] - 2 2 [facility] OUTPATIEN INC T OFFICE 44567 MCKEMIE MCKEMIE OUTPATIEN 2 2 JR SOLEDAD WALDRON SOLEDAD T VISIT 15 MINUTES OFFICE 55070 MCKEMIE MCKEMIE OUTPATIEN 2 2 JR SOLEDAD ROWE T VISIT 10 MINUTES HOSPITAL [facility] - 2 2 [facility] OUTPATIEN INC T OFFICE 20797 WHANG VALERIA WHANG VALERIA OUTPATIEN 2 2 T VISIT 10 MINUTES [facility]OSPITAL [facility] - 2 2 [facility] OUTPATIEN INC [facility] - 2 2 [facility] OUTPATIEN INC T OFFICE 11220 MCKEMIE MCKEMIE OUTPATIEN 2 2 JR SOLEDAD ROWE T VISIT 15 MINUTES OFFICE 23359 MCKEMIE MCKEMIE OUTPATIEN 2 2 JR SOLEDAD ROWE T VISIT 15 MINUTES HOSPITAL [facility] - 2 2 [facility] OUTPATIEN INC T OFFICE 16255 MCKEMIE MCKEMIE OUTPATIEN 2 2 JR SOLEDAD ROWE T VISIT 15 MINUTES HOSPITAL [facility] - 1 1 [facility] OUTPATIEN INC T OFFICE 30855 [facility] MCKEMIE OUTPATIEN 1 1 YAHAIRA ROWE T VISIT INTERNAL 15 MED MINUTES OFFICE 28407 C TYLER ALANIS OUTPATIEN 1 1 ANNABELLE Espinosa VISIT [facility] 10 MINUTES OFFICE 76093 RASTAFARIAN IMAM MOH OUTPATIEN 1 1 CARDIOTHO T VISIT RACIC 10 SURGI MINUTES HOSPITAL [facility] - 1 1 [facility] OUTPATIEN INC T OFFICE 20716 C TYLER ALANIS CONSULTAT 1 1 ANNABELLE MORSE MD [facility] NEW/ESTAB PATIENT 60 MIN OFFICE 13933 [facility] MCKEMIE OUTPATIEN 1 1 YAHAIRA ROWE T VISIT INTERNAL 15 MED MINUTES HOSPITAL [facility] - 1 1 [facility] OUTPATIEN INC T OFFICE 94933 [facility] BESSON OUTPATIEN 0 0 YAHAIRA JUAREZ T VISIT INTERNAL 15 MED MINUTES EMERGENCY 38455 SUSHIL GARCIA 0 0 EMERGENCY HENRRY VISIT SERVICES HIGH SEVERITY& THREAT FUNCJ EMERGENCY 47510 [facility] 0 0 [facility] DEPARTMEN INC T VISIT MODERATE SEVERITY [facility]OSPITAL [facility] - 0 0 [facility] OUTPATIEN INC T OFFICE 32927 RASTAFARIAN IMAM MOH OUTPATIEN 0 0 CARDIOTHO T VISIT RAC 10 SURGI MINUTES HOSPITAL CENTRAL - 0 0 RASTAFARIAN OUTPATIEN HOSP T OFFICE 81820 RASTAFARIAN IMAM MOH OUTPATIEN 0 0 CARDIOTHO T VISIT RAC 10 SURGI MINUTES EMERGENCY 53182 SUSHIL LEAL 0 0 EMERGENCY [facility] DEPARTMEN SERVICES T VISIT HIGH/URGE NT SEVERITY OFFICE 51993 [facility] PETTEY CONSULTAT 0 0 PHYSICIAN KERWIN MCKEON NEW/ESTAB PATIENT 60 MIN OFFICE 49837 [facility] BESSON OUTPATIEN 0 0 [facility] T VISIT INTERNAL 15 MED MINUTES HOSPITAL [facility] - 0 0 [facility] OUTPATIEN [facility] T OFFICE 53930 [facility] BESSON OUTPATIEN 0 0 [facility] T VISIT INTERNAL 25 MED MINUTES HOSPITAL [facility] - 0 0 [facility] OUTPATIEN [facility] T HOSPITAL [facility] - 0 0 [facility]PATIEN [facility] T HOSPITAL [facility] - 0 0 [facility] OUTPATIEN [facility] T OFFICE 29671 RASTAFARIAN FLOWERS OUTPATIEN 0 0 CARDIOTHO SOLEDAD T VISIT RACIC 10 SURGI MINUTES OFFICE 71267 [facility] MCKEMIE OUTPATIEN 0 0 [facility], T VISIT INTERNAL SHRUTHI F 15 MED MINUTES [facility] - 0 0 [facility] OUTPATIEN [facility] T HOSPITAL [facility] - 0 0 [facility] OUTPATIEN INC T OFFICE 10074 RASTAFARIAN LIONEL OUTPATIEN 9 9 CARDIOTHO SOLEDAD T VISIT RACIC 10 SURGI MINUTES [facility]OSPITAL [facility] - 9 9 [facility] OUTPATIEN INC T OFFICE 21925 LIONEL FLOWERS, OUTPATIEN 9 9 LAILA Francis T VISIT 10 MINUTES HOSPITAL [facility] - 9 9 [facility] OUTPATIEN INC T OFFICE 04793 LIONEL FLOWERS, CONSULTAT 9 9 LAILA Francis ION NEW/ESTAB PATIENT 40 MIN OFFICE 67863 [facility] BARB OUTPATIEN 9 9 Jesús SYED JR VISIT INTERNAL SHRUTHI 15 MED [facility] - 9 9 [facility] OUTPATIEN INC T OFFICE 50531 [facility] BARB OUTPATIEN 9 9 Jesús SYED JR VISIT INTERNAL SHRUTHI F 15 MED [facility] - 9 9 [facility] OUTPATIEN INC T OFFICE 98480 YOGI BASS 9 9 MEDICAL KIRA D ION SERV NEW/ESTAB FOUNDATIO PATIENT 40 MIN [facility]OSP[facility] - 9 9 [facility] OUTPATIEN INC T EMERGENCY 00920 [facility] 9 9 [facility] DEPARTMEN INC T VISIT MODERATE SEVERITY EMERGENCY 27415 KEVIN MALDONADO, 9 9 [facility] HIGH/URGE NT SEVERITY [facility] - 9 9 [facility] OUTPATIEN INC T OFFICE 45104 [facility] YOSELYN SZYMANSKI 9 9 YAHAIRA Espinosa VISIT INTERNAL 15 MED MINUTES OFFICE 15289 [facility] BARB LOCOPATIEN 8 8 Jesús SYED JR VISIT INTERNAL SHRUTHI F 15 MED MINUTES OFFICE 41910 YOSELYN FARRIS 8 8 MEDICAL SANTHOS[facility] T VISIT SERV 15 FOUNDATIO MINUTES HOSPITAL [facility] - 8 8 [facility] OUTPATIEN INC T [facility] - 8 8 [facility] OUTPATIEN INC T OFFICE 24645 YOSELYN FARRIS 8 8 MEDICAL SANTHOS[facility] T VISIT SERV 25 FOUNDATIO MINUTES HOSPITAL [facility] - 8 8 [facility] OUTPATIEN INC T OFFICE 73340 DIEGO GIL CONSULTANA 8 8 MEDICAL SANTHOSH ION SERV NEW/ESTAB FOUNDATIO PATIENT 60 MIN [facility]OSPITAL [facility] - 8 8 [facility] OUTPATIEN INC T EMERGENCY 96840 [facility] 8 8 [facility] DEPARTMEN INC T VISIT MODERATE SEVERITY OFFICE 73789 YOSELYN FARRIS 8 8 MEDICAL SANTH[facility] T VISIT SERV 15 FOUNDATIO MINUTES HOSPITAL [facility] - 8 8 [facility] OUTPATIEN INC T OFFICE 94958 YOGI FARRIS 8 8 MEDICAL SANTHOS[facility] ION SERV NEW/ESTAB FOUNDATIO PATIENT 60 MIN OFFICE 37244 [facility] BARB OUTPATIEN 8 8 Jesús SYED JR VISIT INTERNAL SHRUTHI F 15 MED MINUTES [facility] - 8 8 [facility] OUTPATIEN INC [facility] - 8 8 [facility] OUTPATIEN INC T OFFICE 34880 [facility] NESSA OUTPATIEN 8 8 YAHAIRA Espinosa VISIT INTERNAL 25 MED MINUTES [facility] 67211 [facility] S[facility] 8 8 [facility] EST CLINIC OF PATIENT 40-64YRS SIDRA [facility] OFFICE 89374 [facility] BARB OUTPATIEN 8 8 Jesús SYED JR VISIT INTERNAL SHRUTHI F 15 MED MINUTES [facility] - 8 8 [facility] OUTPATIEN INC T OFFICE 14492 YOSELYN HADDAD 8 8 YAHAIRA Espinosa VISIT INTERNAL 15 MED MINUTES OFFICE 03761 YOSELYN HADDAD 8 8 YAHAIRA Espinosa VISIT INTERNAL 25 MED MINUTES
--- OUTSIDE RECORDS SUMMARY | 2017-08-22 00:27 | External Medical Summary Rpt | CCD ---
Author Author , JARROD Organization JARROD Address Unknown Phone [email or web address] Care Team Providers Care Type Caster Name Role Phone RAKESH GUZMÁN, CAMERON Unavailable Unavailable ARIELLE ANITA LEE MD, PSC, Unavailable Unavailable ANITA LEE MD, PSC ADIS JR LA, Unavailable Unavailable ADIS JR LA ASLAM AZH, ASLAM AZH Unavailable Unavailable BEINEKE, BEINEKE Unavailable Unavailable BEINEKE FAHEEM, BEINEKE Unavailable Unavailable FAHEEM BESSON, BESSON Unavailable Unavailable BESSON ANN, BESSON Unavailable Unavailable ANN BESSON ANN, BESSON Unavailable Unavailable ANN ATWOOD ALL, ATWOOD ALL Unavailable Unavailable JEFFERY, SANTHOSH, Unavailable Unavailable JEFFERYDAVYIO BROSTER THO, BROSTER Unavailable Unavailable THO BUX, BUX Unavailable Unavailable BUX ANJ, BUX ANJ Unavailable Unavailable Ten ALANIS MD Unavailable Unavailable PSC, Ten ALANIS MD PSC NATHANIEL LEO, NATHANIEL Unavailable Unavailable LEO [facility], Unavailable Unavailable [facility] Unavailable INC, [facility] Unavailable Unavailable [facility], [facility] Unavailable [facility], [facility] & Unavailable Unavailable DUBILIER, [facility] MIN SANDERS, Unavailable Unavailable MIN SANDERS, Unavailable Unavailable LAILA SOLO, Unavailable Unavailable LAILA FLOWERS T, SCHNEIDER T Unavailable Unavailable SCHNEIDER T, SCHNEIDER T Unavailable Unavailable [facility] Unavailable Unavailable ASSOCIATE, [facility] Unavailable Unavailable LA, [facility] Unavailable Unavailable [facility], [facility] Unavailable Unavailable THE [facility], [facility] COOK, COOK Unavailable Unavailable EUGENIO LA, Unavailable Unavailable EUGENIO LA EUGENIO LA, Unavailable Unavailable EUGENIO LA EUGENIO, TAO, Unavailable Unavailable EUGENIO, TAO CORINA RAIMUNDO, CORINA Unavailable Unavailable RAIMUNDO MANDJUANO MIS, MANDUJANO MIS Unavailable Unavailable ALBERT OVIDIO, ALBERT OVIDIO Unavailable Unavailable DUFF, DUFF Unavailable Unavailable [facility] [place] [facility] [place] [facility] [place] [place] [facility] FALLUJI ROM, FALLUJI Unavailable Unavailable ROM FAISHAANN LUEVANO, FAUGHN Unavailable Unavailable LUEVANO ELIZABETH AUDRA, Unavailable Unavailable ELIZABETH AUDRA ELIZABETH AUDRA, Unavailable Unavailable ELIZABETH AUDRA BEAN CHR, BAEN CHR Unavailable Unavailable DENISSE HENRRY, DENISSE Unavailable Unavailable HENRRY DENISSE, SHANNAN S, Unavailable Unavailable DENISSE, SHANNAN S [facility], Unavailable Unavailable [facility] Unavailable Unavailable [facility], [facility] Unavailable Unavailable [facility], [facility] Unavailable Unavailable INC, [facility] Unavailable Unavailable H[facility]PITAL P, [facility] NESSA, LUDIN, NESSA, Unavailable Unavailable [facility], Unavailable Unavailable [facility] LOZADA TRA, LOZADA TRA Unavailable Unavailable IMAM MOH, IMAM MOH Unavailable Unavailable VINCENT THOMAS, VINCENT Unavailable Unavailable THOMAS MONTANO SHANNON, MONTANO Unavailable Unavailable SHANNON MONTANO SHANNON, MONTANO Unavailable Unavailable SHANNON MEL FAUSTO, MEL Unavailable Unavailable FAUSTO SALGADO, SALGADO Unavailable Unavailable STEPHIE JOSS, STEPHIE JOSS Unavailable Unavailable [facility] Un[facility]available [facility], [facility] Unavailable Unavailable [facility], [facility] TOSHIA THO, TOSHIA THO Unavailable [...] Unavailable [facility] Unavailable Unavailable SPECIALISTS,, [facility], [facility] Unavailable Unavailable INTERNAL MED, [facility] DOUGHERTY ALEXUS, DOUGHERTY Unavailable Unavailable ALEXUS SHAMIKA LEE MD, SHAMIKA Unavailable Unavailable ROSA CARLOS, KIRA Russell, TERRANCE, Unavailable Unavailable KIRA Russell ADRIEL HAM, ADRIEL HAM Unavailable Unavailable ADRIEL HAM, ADRIEL HAM Unavailable Unavailable [facility] Unavailable Unavailable SERVICES, [facility] MCKEMIE JR [facility], Unavailable Unavailable [facility] M[facility], Unavailable Unavailable [facility] MCKEMIE JR, SHRUTHI Unavailable Unavailable F, BARB JR, SHRUTHI F MOOSE ROHAN, Unavailable Unavailable [...] JAVIER SYKES, Unavailable Unavailable FRANCISCO JAVIER SYKES [facility], Unavailable Unavailable [facility] [address], Unavailable Unavailable [facility] VILLARAN YUR, Unavailable Unavailable VILLARAN YUR VILLARAN YUR, Unavailable Unavailable VILLARAN YUR [facility] # Unavailable Unavailable [id number], [facility] # [id number] KARLY CHRISTIAN, Unavailable Unavailable KARLY EUBANKS, TICO EUBANKS Unavailable Unavailable MERANG VALERIA, YUNIOR VALERIA Unavailable Unavailable Purpose Continuity of Care Document - 12-02-2007 through 2016 Problems Code Diagnosis DOS Provider Status M545 LOW BACK 04-27-2017 [facility] R300 DYSURIA 03-24-2017 [facility] [id number] SPONDYLOSIS 03-03-2017 ANITA LEE, W/O , PSC MYELOPATH/R ADICULOPATH Y LUMB RGN 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 [id number] OTHER LONG 02-24-2017 [facility] TERM [facility] [...] MEM HOSP HYPERTENSIO INC N I2510 [place] 12-31-2016 [facility] CORONARY [facility] ARTERY W/O INC ANGINA PECT[place]IS I739 PERIPHERAL 12-31-2016 [facility] VASCULAR [facility] DISEASE INC UNSPECIFIED M461 SACROILIITI 12-30-2016 [facility] S NOT [facility] ELSEWHERE INC CLASSIFIED I200 UNSTABLE 11-26-2016 [facility] ANGINA [facility] INC I209 ANGINA 11-26-2016 [facility] PECTORIS PHYSICIANS UNSPECIFIED GROUP 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 [facility] TRICUSPID SERV VALVE [facility] INSUFFICIEN CY I6523 OCCLUSION & 11-26-2016 [facility] BIL[facility]AL [facility] CAROTID ARTERIES R0602 SHORTNESS 11-26-2016 [facility] OF BREATH [facility] INC Z955 PRESENCE OF 11-26-2016 [facility] CORONARY [facility] ANGIOPLASTY INC IMPLANT & GRAFT J449 CHRONIC 11-04-2016 [facility]CTIVE [facility] PULMONARY IMAGING ASS DISEASE UNS J9811 ATELECTASIS 11-04-2016 [facility] R05 COUGH 11-04-2016 [facility] R079 CHEST PAIN 11-04-2016 [facility] U[facility]PECIFIED [facility] I129 HYPERTENSIV 11-03-2016 [facility] Tovar CKD [facility] W/STAGE 1-4 HOSPITAL P CKD OR UNS CKD N189 CHRONIC 11-03-2016 [facility] KIDNEY [facility] DISEASE INC UNSPECIFIED Z720 TOBACCO USE 11-03-2016 [facility] INC K5900 CONSTIPATIO 08-27-2016 [facility] N [facility] UNSPECIFIED INTERNAL MED N390 URINARY 08-27-2016 [facility] TRACT [facility] INFECTION INTERNAL SITE NOT MED SPECIFIED R102 PELVIC AND 08-27-2016 [facility] PERINEAL [facility] PAIN INTERNAL MED O57437 ENCOUNTER 08-27-2016 [facility] MEDICAL TECHNOLOGIST HEMATOLOGY [facility] GENERAL RTN W/O ABNORMAL FIND Z124 ENCOUNTER 08-27-2016 [facility] OTHER [facility] SCREENING INTERNAL MALIG MED NEOPLASM CERVIX M51919 PERSONAL 08-27-2016 [facility] HISTORY OF VALLEY COLONIC INTERNAL POLYPS MED Z1231 ENCOUNTER 08-26-2016 [facility] MAMMO MALIG IMAGING ASS NEOPLASM BREAST Z5181 ENCOUNTER 08-05-2016 [facility] THERAPEUTIC LA DRUG LEVEL MONITORING R51 HEADACHE 06-11-2016 [facility] INTERNAL MED K219 GASTRO-ESOP 05-29-2016 [facility] H REFLUX [facility] DISEASE INC WITHOUT ESOPHAGITIS L723 SEBACEOUS 05-29-2016 [facility] CYST [facility] INC L729 FOLLICULAR 05-29-2016 [facility] THE PHYSICIANS, SKIN & SUBQ PLLC TISSUE UNS H6123 IMPACTED 03-20-2016 [facility] CERUMEN PHYSICIANS BILATERAL GROUP H6523 CHRONIC 03-20-2016 [facility] SEROUS PHYSICIANS OTITIS GROUP MEDIA BILATERAL G8929 OTHER 03-17-2016 [facility] CHRONIC VAL[facility] PAIN INTERNAL MED R109 UNSPECIFIED 03-17-2016 [facility] ABDOMINAL [facility] PAIN INTERNAL MED G250 ESSENTIAL 01-23-2016 [facility] R202 PARESTHESIA 01-23-2016 [facility] K269 DUOD ULCR 11-12-2015 COL[facility]AL UNS AC SURGIAL OR CHRON ASSOCIATE W/O HEMORR OR PERF K3189 OTHER 11-12-2015 [facility] DISEASES OF SURGIAL STOMACH ASSOCIATE AND DUODENUM K319 DISEASE OF 11-12-2015 [facility] DUODENUM DUBILIER UNSPECIFIED R0789 OTHER CHEST 11-12-2015 [facility] PAIN SURGIAL ASSOCIATE R1013 EPIGASTRIC 11-12-2015 [facility] R634 ABNORMAL 11-12-2015 [facility] WEIGHT LOSS [...] 09-02-2015 [facility], NEURITIS PLLC UNSPECIFIED [id number] PAIN IN 09-02-2015 [facility] LEFT LOWER MEDICAL LEG IM[facility] F74525 PAIN IN 09-02-2015 [facility] LEFT FOOT PHYSICIANS, PLL S26358V UNSPECIFIED 09-02-2015 [facility] INJURY [facility]ICAL LEFT FOOT IMAGING ASS INITIAL ENCOUNTER H524 PRESBYOPIA 08-09-2015 [place] 30366 INTESTINAL 07-20-2015 [facility] INFECTIONS VAL[facility] DUE INTERNAL CLOSTRIDIUM MED DIFFICILE 32406 DEHYDRATION 07-08-2015 [facility] INC 16267 CORONARY 07-08-2015 [facility] ATHEROSCLER [facility] [place] INC CORONARY ARTERY 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 07-08-2015 [facility] [...] SITU V4582 POSTSURG 07-08-2015 [facility] PERCUT [facility] TRANSLUMINA INC L COR ANGPLSTY STS 5849 ACUTE 07-07-2015 [facility] KIDNEY PHYS[facility]ANS, FAILURE PLLC UNSPECIFIED 59095 ABDOMINAL 07-07-2015 [facility], MEDICAL GENERALIZED IMAGING ASS 7823 EDEMA 07-02-2015 [facility] INTERNAL MED 5180 PULMONARY 06-30-2015 [facility]LLAPSE [facility] 22990 SWELLING OF 06-30-2015 [facility]B [facility] 5952 OTHER 06-19-2015 [facility] CYSTITIS HOSPITAL P 5989 UNSPECIFIED 06-19-2015 [facility] URETHRAL [facility] STRICTURE [facility] P 30198 URINARY 06-19-2015 [facility] P 32440 OTHER 06-19-2015 [facility] ABNORMALITY ANESTH OF OF THE BLUE URINATION 23249 OTHER 06-04-2015 [facility] CHRONIC [facility] PAIN INTERNAL MED 4019 UNSPECIFIED 06-04-2015 [facility] ESSENTIAL VAL[facility] HYPERTENSIO INTERNAL N MED 11713 INSOMNIA 06-04-2015 [facility] UNSPECIFIED VALLEY INTERNAL MED 496 CHRONIC 05-29-[address] [facility] [address] [facility] OBSTRUCTION INTERNAL NEC MED 5609 UNSPECIFIED 05-29-2015 [facility] INTESTINAL [facility] INTERNAL OBSTRUCTION MED 21878 DEGEN 2015 SHAMIKA LEE LUMBAR/LUMB OSACRAL INTERVERTEB RAL DISC 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 2015 SHAMIKA GREENWOODOSAJOLANTA CABRERA NEURITIS/RA DICULITIS UNSPEC 7873 FLATULENCE 2015 [facility] ERUCTATION [facility]ICAL [facility]AS [facility] PAIN 23212 ABDOMINAL 2015 [facility], MEDICAL UNSPECIFIED IMAGING ASS SITE 4168 OTHER 05-15-2015 [facility] CHRONIC HEALTH PULMONARY MEDICAL G HEART DISEASES 4240 MITRAL 05-15-2015 [facility] VALVE HEALTH DISORDERS MEDICAL G 4242 TRICUSPID 05-15-2015 [facility] VALVE HEALTH DISORDERS MEDICAL G SPEC NONRHEUMATI C 05333 CHEST PAIN 05-15-2015 [facility] UNSPECIFIED HEALTH MEDICAL G 59526 OTHER CHEST 05-02-2015 [facility] PAIN HEALTH MEDICAL G V7281 PRE-OPERATI 05-02-2015 [facility] HEALTH CARDIOVASCU MEDICAL G LAR EXAMINATION 7936 NONSPEC ABN 04-25-2015 [facility] FINDNG RAD PHYSICIANS & OTH EXAM GROUP ABDOMINAL AREA 71327 OTHER 04-25-2015 [facility] ABNORMAL PHYSICIANS FINDING GROUP RADIOLOGICA L EXAM BREAST 5768 OTHER 04-10-2015 [facility] SPECIFIED MEDICAL DISORDERS IMAGING ASS OF BILIARY TRACT 7242 LUMBAGO 03-29-2015 [facility] 7906 OTHER 03-28-2015 [facility] ABNORMAL [facility] BLOOD INC CHEMISTRY 7881 DYSURIA 02-15-2015 [facility] 98769 ABDOMINAL 02-15-2015 [facility] PAIN OTHER MEDICAL SPECIFIED IMAGING ASS SITE 7245 UNSPECIFIED 02-07-2015 [facility] BACKACHE [facility] INC V571 OTHER 02-07-2015 [facility] PHYSICAL [facility] THERAPY INC 85646 UNSPECIFIED 02-06-2015 [facility] P 3384 CHRONIC 11-20-2014 [facility] PAIN VALLEY SYNDROME INTERNAL MED 29236 OSTEOARTHRO 11-20-2014 [facility] S UNSPEC VALLEY WHETHER INTERNAL GEN/LOC MED UNSPEC SITE 7213 LUMBOSACRAL 11-20-2014 [facility] SPONDYLOSIS IMAGING ASS WITHOUT MYELOPATHY V7612 OTHER 11-20-2014 [facility] SCREENING MEDICAL MAMMOGRAM IMAGING ASS 3831 CHRONIC 09-21-2014 [facility] TU MASTOIDITIS 4760 CHRONIC 08-28-2014 [facility] LARYNGITIS 87347 ESOPHAGEAL 08-28-2014 [facility] REFLUX 4408 ATHEROSCLER 08-11-2014 [facility] OSIS OF VALLEY OTHER INTERNAL SPECIFIED MED ARTERIES 42893 ABDOMINAL 08-11-2014 [facility] PAIN, VALLEY EPIGASTRIC INTERNAL MED 28423 HYPOXEMIA 07-30-2014 [facility] MEDICAL 13122 OCCLUSION&S 06-27-2014 WYATT Espinosa TENOS CAROTID ART W/O MENTION INFARCT 05361 DIAB W/O 06-26-2014 [facility] COMP TYPE YUR II/UNS NOT STATED UNCNTRL 43898 ELEVATED 06-26-2014 [facility] CARCINOEMBR YUR YONIC ANTIGEN 486 PNEUMONIA, 06-25-2014 MONTANO SHANNON ORGANISM UNSPECIFIED V7282 PRE-OPERATI 06-25-2014 MONTANO SHANNON VE RESPIRATORY EXAMINATION 4111 INTERMEDIAT 06-21-2014 VICKIE Tovar CORONARY HEART SYNDROME SPECIALISTS , 57170 OSTEOARTHRO 06-12-2014 [facility] ANAHI SIS UNSPEC WHETHER GEN/LOC LOWER LEG 79267 OSTEOARTHRO 06-12-2014 [place] [facility] SIS UNSPEC SERV WHETHER FOUNDATION GEN/LOC ANK&FOOT 32581 PAIN IN 06-12-2014 CHARIS ANAHI JOINT, LOWER LEG 04163 PAIN IN 05-10-2014 [facility] JOINT, ANN ANKLE AND FOOT 8248 UNSPECIFIED 05-10-2014 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 7234 BRACHIAL 03-23-2014 [facility] H[facility] NEURITIS OR RADICULITIS NOS 7226 DEGENERATIO 12-19-2013 ELIZABETH N AUDRA INTERVERTEB RAL DISC SITE UNSPEC 7292 UNSPECIFIED 12-19-2013 ELIZABETH NEURALGIA AUDRA NEURITIS AND RADICULITIS 88184 OTHER 10-31-2013 EU[facility] SPECIFIED LA DISORDERS OF BREAST 2724 OTHER AND 10-12-2013 ELIZABETH UNSPECIFIED AUDRA HYPERLIPIDE LIN V7231 ROUTINE 10-12-2013 [facility] DARIUSZ AL EXAMINATION 43789 OCCL&STENOS 05-09-2013 EUGENIO MX&BILAT LA PRECERBRL ART W/O INFARCT 7295 PAIN IN 02-25-2013 BARB WALDRON SOFT SOL[facility] TISSUES OF LIMB 5781 BLOOD IN 12-16-2012 [facility] STOOL [facility] INC 32787 DIVERTICULO 12-14-2012 HALI JUAREZ SIS OF COLON 0091 COLITIS 12-13-2012 AN[facility] ENTERIT&GAS LUDWIN TROENTERIT INF ORIGIN 2662 OTHER 10-25-2012 BARB WALDRON B-COMPLEX SOLEDAD DEFICIENCIE S 65237 ABDOMINAL 2012 [facility] PAIN RIGHT [facility] UPPER INC QUADRANT V8801 ACQUIRED 04-22-2012 [facility] ABSENCE OF MEDICAL BOTH CERVIX IMAGING ASS AND UTERUS 8470 NECK SPRAIN 09-04-2011 [facility] AND STRAIN [facility] INC 2113 BENIGN 06-10-2011 C [facility] NEOPLASM OF ANNABELLE COLON PSC V7651 SPECIAL 05-29-2011 [facility] SCREENING [facility] FOR INC MALIGNANT NEOPLASMS COLON 00304 UNSPECIFIED 05-22-2011 C TYLER ANNABELLE CONSTIPATIO PSC N 5693 HEMORRHAGE 05-22-2011 C TYLER OF RECTUM ANNABELLE AND ANUS PSC 5283 CELLULITIS 04-11-2011 [facility] AND ABSCESS VALLEY OF ORAL INTERNAL SOFT MED TISSUES 80090 OTHER ACUTE 10-11-2010 [facility] POSTOPERATI SERVICES VE PAIN 7820 DISTURBANCE 10-11-2010 [facility] OF SKIN EMERGENCY SENSATION SERVICES 70379 OTHER 10-11-2010 [facility] SPECIFIED [facility] COMPLICATIO INC NS NEC V5869 LONG-TERM 09-04-2010 [facility] (CURRENT) [facility] USE OF HOSP OTHER MEDICATIONS 4928 OTHER 08-12-2010 [facility] EMPHYSEMA [facility] INTERNAL MED 7862 COUGH 08-11-2010 [facility] 27965 OTHER 08-10-2010 [facility] DISEASES OF EMERGENCY NASAL SERVICES CAVITY AND SINUSES 7291 UNSPECIFIED 08-10-2010 [facility] MYALGIA [facility] AND SERVICES MYOSITIS 28880 FEVER 08-10-2010 [facility] UNSPECIFIED [facility]ERGENCY SERVICES 490 BRONCHITIS 07-31-2010 [facility] NOT [facility]LEY SPECIFIED INTERNAL ACUTE OR MED CHRONIC 4919 UNSPECIFIED 01-30-2010 [facility] CHRONIC [facility] BRONCHITIS INC 4660 ACUTE 12-18-2009 [facility] BRONCHITIS [facility] INC 7859 OTHER 12-18-2009 [facility] SYMPTOMS MEDICAL INVOLVING IMAGING CARDIOVASCU ASSOCIATES LAR SYSTEM 4619 ACUTE 08-25-2009 [facility] SINUSITIS, VALLEY UNSPECIFIED INTERNAL MED 04076 PRIMARY 04-16-2009 [place] MEDICAL LOCALIZED SERV OSTEOARTHRO FOUNDATIO SIS LOWER LEG 6929 CONTACT 11-22-2008 [facility] DERMATITIS& VALLEY OTHER INTERNAL ECZEMA DUE MED UNSPEC CAUSE 59678 OTHER 09-25-2008 [facility] ANXIETY WACO STATES INTERNAL MED 4279 UNSPECIFIED 09-25-2008 [facility] CARDIAC VAL[facility] DYSRHYTHMIA INTERNAL MED 21217 ABDOMINAL 09-06-2008 [place] [facility] PAIN, SERV PERIUMBILIC FOUNDATIO 30267 ACUTE 07-02-2008 [facility] GASTRITIS [facility] WITHOUT INC MENTION OF HEMORRHAGE 74593 UNSPECIFIED 05-10-2008 [place] [facility] SERV ESOPHAGITIS FOUNDATIO 17850 ATROPHIC 05-10-2008 PATHOLOGY & GASTRITIS CYTOLOGY WITHOUT LAB MENTION OF HEMORRHAGE 90267 UNS 05-10-2008 [place] [facility] GASTRITIS&G SERV ASTRODUODIT FOUNDATIO IS W/O MENTION HEMORR 45751 DUODENITIS 05-10-2008 PATHOLOGY & WITHOUT CYTOLOGY MENTION OF LAB HEMORRHAGE 64115 EFFUSION OF 03-28-2008 TA[facility] C LOWER LEG EUGENIO JOINT 2409 GOITER, 03-17-2008 [facility] UNSPECIFIED [facility]ICAL IMAGING ASSOCIATES 2410 NONTOXIC 03-17-2008 [facility] UNINODULAR [facility]P GOITER INC 65983 DYSPHAGIA 03-17-2008 [facility] DUE TO MEM HOSP CEREBROVASC INC ULAR DISEASE 7179 UNSPECIFIED 03-14-2008 [facility] INTERNAL [facility] DERANGEMENT INC OF KNEE 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 V762 SCREENING 03-09-2008 [facility] [place] INC MALIGNANT NEOPLASM OF THE CERVIX 7224 DEGENERATIO 02-14-2008 [facility] N OF WACO CERVICAL INTERNAL INTERVERTEB MED RAL DISC 31853 SPASM OF 02-14-2008 [facility] MUSCLE WACO INTERNAL MED 462 ACUTE 01-18-2008 [facility] PHARYNGITIS [facility] INC 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 INC 460 ACUTE 01-13-2008 [facility] NASOPHARYNG VALLEY ITIS INTERNAL MED Medications Na ND Rx Da Fi Fi [...] AN A IN C BU 10 08 09 30 30 00 EA Ac TX 37 -2 -[address] ti [...] ST ti TA 20 1- 5- 00 SI ve LO 37 20 20 49 DE TX 40 17 17 17 AM 1 16 PH AR 10 MA CY MG OF TA CY BL NT ET HI AN A IN C SI 16 08 09 30 30 00 EA Ac MV 71 -2 -[address] ti 40 1- 5- 00 SI ve TA 68 20 20 49 DE TI 30 17 17 17 N 3 17 PH 20 AR MA MG CY TA OF BL CY ET NT HI AN A IN C IS 13 08 09 30 30 00 EA Ac OS 66 -2 -[address] ti OR 80 1- 5- 00 SI ve BI 10 20 20 49 DE DE 40 17 17 51 1 45 PH MN AR MA ER CY 30 OF CY MG NT HI TA AN BL A ET IN C OM 62 08 09 30 30 00 EA Ac EP 17 -2 -[address] ti RA 50 1- 5- 00 SI ve ZO 13 20 20 49 DE LE 64 17 [address] AR MA 40 CY MG OF CY CA NT PS HI UL AN E A IN C RA 68 08 09 30 30 00 EA Ac NI 46 -2 -[address] ti TI 20 1- 5- 00 SI ve DI 24 20 20 49 DE NE 92 17 17 86 0 56 PH 30 AR 0 MA MG CY TA OF BL CY ET NT HI AN A IN C PO 51 08 09 52 30 00 EA Ac LY 99 -2 -[address] ti ET 10 1- 5- 00 SI ve HY 45 20 20 0 49 DE LE 75 17 17 86 NE 7 57 PH AR GL MA YC CY OL OF 33 CY 50 NT HI PO AN WD A IN C ME 65 08 09 60 30 00 EA Ac TO 86 -2 -[address] ti TX 20 1- 5- 00 00 SI ve [...] 86 -2 -[address] ti TX 20 0- 8- 00 00 SI ve [...] ve LO 37 20 20 49 DE TX 40 17 17 17 AM 1 16 [...] 07 08 30 30 00 EA Ac TX 37 -2 -[address] ti [...] 06 07 30 30 00 EA Ac TX 37 -1 -[address] ti OP 00 9- 00 SI ve IO 10 20 20 48 DE N 10 17 17 83 HC 3 29 PH L AR XL MA CY 15 0 OF MG CY NT TA HI BL AN ET A IN C OM 62 06 07 30 30 00 EA Ac EP 17 -1 -[address] ti RA 50 9- 00 SI ve ZO 13 20 20 48 DE LE 64 17 [address] AR MA 40 CY MG OF CY CA NT PS HI UL AN E A IN C RA 68 06 07 30 30 00 EA Ac NI 46 -1 -[address] ti TI 20 9- 4 00 SI ve DI 24 20 20 47 DE NE 92 17 17 66 0 10 PH 30 AR 0 MA MG CY TA OF BL CY ET NT HI AN A IN C ME 65 06 07 60 30 00 EA Ac TO 86 -1 -[address] ti TX 20 9- 4 00 SI ve OL 06 20 20 [...] ve LO 37 20 20 49 DE TX 40 17 17 17 AM 1 16 [...] ve LO 37 20 20 48 DE TX 40 17 17 37 AM 1 26 [...] 86 -2 -[address] ti TX 20 1- 3- 00 00 SI ve OL 06 20 20 48 DE OL 39 17 17 83 9 28 PH TA AR RT MA RA CY TE OF 50 CY NT MG HI AN TA A B IN C BU 10 05 06 30 30 00 EA Ac TX 37 -2 -[address] ti [...] ST ti OF 82 8- 2- 00 00 SI ve EN 55 20 20 48 DE AC 19 17 17 01 6 07 PH SO AR D MA EC CY 74 OF CY MG NT HI TA AN B A IN C ME 65 04 05 60 30 00 EA Ac TO 86 -1 -[address] ti TX 20 8- 2- 00 00 SI ve OL 06 20 20 47 DE OL 39 17 17 28 9 69 PH TA AR RT MA RA CY TE OF 50 CY NT MG HI AN TA A B IN C BU 10 04 05 30 30 00 EA Ac TX 37 -1 -[address] ti [...] ve LO 37 20 20 48 DE TX 40 17 17 37 AM 1 26 [...] 5 73 PH CE AR TA MA OH CY NO PH OF N CY 10 [...] -[address] ti 40 7- 4- 00 00 SI ve TA 68 20 20 46 DE TI 30 17 17 93 N 3 45 PH 20 AR MA MG CY TA OF BL CY ET NT HI AN A IN C ME 65 03 04 60 30 00 EA Ac TO 86 -1 -[address] ti TX 20 7- 4- 00 00 SI ve OL 06 20 20 47 DE OL 39 17 17 28 9 69 PH TA AR RT MA RA CY TE OF 50 CY NT MG HI AN TA A B IN C IS 13 03 04 30 30 00 EA Ac OS 66 -1 -[address] ti OR 80 7- 4- 00 00 SI ve BI 10 20 20 47 DE DE 40 17 17 21 1 21 PH MN AR MA ER CY 30 OF CY MG NT HI TA AN BL A ET IN C PO 00 03 04 30 30 00 EA Ac TA 78 -1 -[address] ti SS 15 7- 4- 00 00 SI ve IU 72 20 20 46 DE M 00 17 17 58 CL 5 32 PH AR ER MA CY 20 OF ME CY Q NT TA HI BL AN ET A IN C BU 10 03 04 30 30 00 EA Ac TX 37 -1 -[address] ti OP 00 7- 4- 00 00 SI ve IO 10 20 20 47 DE N 10 17 17 57 HC 3 33 PH L AR XL MA CY 15 0 OF MG CY NT TA HI BL AN ET A IN C DI 00 03 04 60 30 00 EA Ac CL 22 -1 -[address] ti OF 82 7- 4- 00 00 SI ve EN 55 20 [...] 5 80 PH CE AR TA MA OH CY NO PH OF CY 7. NT [...] 86 -1 -[address] ti TX 20 7- 7- 00 00 SI ve [...] 5 86 PH CE AR TA MA OH CY NO PH OF N CY 10 [...] 02 03 30 30 00 EA Ac TX 37 -1 -[address] ti [...] ET A IN C LO 65 02 03 30 [...] 86 -1 -[address] ti TX 20 8- 0- 00 00 SI ve OL 06 20 20 47 DE OL 39 17 17 28 9 69 PH TA AR RT MA RA CY TE OF 50 CY NT MG HI AN TA A B IN C HY 00 01 02 [address] 40 -1 -[address] ti OC 60 8- 0- 00 00 SI ve OD 12 20 20 0 47 DE ON 50 17 17 28 -A 5 90 PH CE AR TA MA OH CY NO PH OF N CY 10 NT -3 HI 25 AN A IN C IS 13 01 02 30 30 00 EA Ac OS [...] 01 02 12 30 00 EA Ac TX 78 -0 -[address] ti [...] 15 7- 7- 00 00 SI ve TX 02 20 20 47 DE ED 20 [...] AN A IN C SI 16 12 30 30 00 EA Ac MV 71 [...] 86 -1 -[address] ti TX 20 9- 0- 00 00 SI ve [...] ET A IN C DI 00 12 01 60 30 00 EA Ac CL 22 -1 -[address] ti OF 82 9- 0- 00 00 SI ve EN 55 20 20 46 DE AC 19 16 17 58 6 24 PH SO AR D MA EC CY 75 OF CY MG NT HI TA AN B A IN C TR 16 12 01 60 30 00 EA Ac AM 71 [...] 5 36 PH CE AR TA MA OH CY NO PH OF N CY 10 NT -3 HI 25 AN A IN C AL 00 12 01 12 30 00 EA Ac TX 78 -0 -[address] ti AZ 11 6- 9- 00 00 SI ve OL 07 20 20 0 46 DE AM 91 16 17 78 1 0 51 PH AR MG MA CY TA BL OF ET CY NT HI AN A IN C TX 37 07 10 3 30 30 EA [...] 0 DE RA [address] OH 6 PH EP DE AR HE MA N 10 CY A MG OF TA CY BL NT ET HI AN A ME 00 07 10 3 60 30 EA 23 BE Ac TO 09 -2 -[address] 36 SS ti TX 30 0- 1- 00 SI 99 ON [...] 0- 1- 00 SI 00 ON ve [place] 75 20 20 DE [place] [address] 0 PH EP 10 AR HE MA N MG CY A TA OF BL ET CY NT HI AN A CR 00 08 10 3 30 30 EA 23 MC Ac ES 31 -2 -[address] 76 KE ti TO 00 2 1 00 SI 62 OH ve R 75 20 20 DE E 10 19 11 11 JR 0 PH MG AR WI MA LL TA CY IA BL M ET OF F CY NT HI AN A AL 67 10 10 0 90 30 EA 24 MC Ac TX 25 -2 -[address] 61 KE ti AZ 30 1 SI 33 OH ve OL 90 20 20 DE E AM 21 11 11 JR 1 0 PH AR WI MG MA LL CY IA TA M BL OF F ET CY NT HI AN A TR 65 10 10 0 90 30 EA 24 MC Ac AM 16 -2 -[address] 61 KE ti AD 20 1 SI 34 OH ve OL 62 20 20 DE E 71 11 11 JR HC 1 PH L AR [place] 50 MA LL CY IA MG M OF F TA BL CY ET NT HI AN A TR 00 08 10 4 15 4 EA 23 MC Ac IA 16 -2 -[address] 76 KE ti MC 80 2- 1- 00 SI 63 OH ve IN 00 20 20 DE E OL 31 11 11 JR ON 5 PH E AR [place] 0. MA LL 02 CY IA 5% M OF F CR EA CY M NT HI AN A 00 10 10 0 60 30 EA 24 MC Ac 59 -1 -[address] 44 KE ti 10 0- 1- 00 SI 97 OH ve 50 20 20 DE E 30 11 11 JR 1 PH AR WI MA LL CY IA M OF F CY NT HI AN A OH 00 09 09 0 30 30 EA 24 MC Ac RT 09 -2 -[address] 23 KE ti AZ 37 3- 3- 00 SI 05 OH ve AP 20 20 20 DE E IN 75 11 11 JR E 6 PH 30 AR WI MA LL MG CY IA M TA OF F BL ET CY NT HI AN A TX 37 07 09 3 30 30 EA [...] 0 DE RA [address] OH 6 PH EP DE AR HE MA N 10 CY A MG OF TA CY BL NT ET HI AN A ME 00 07 09 3 60 30 EA 23 BE Ac TO 09 -2 -[address] 36 SS ti TX 30 0- 2- 00 SI 99 ON [...] 0- 2- 00 SI 00 ON ve TX 75 20 20 DE [place] [address] 0 PH EP 10 AR HE MA N MG CY A TA OF BL ET CY NT HI AN A CR 00 08 09 3 30 30 EA 23 MC Ac ES 31 -2 -[address] 76 KE ti TO 00 2- 2- 00 SI 62 OH ve R 75 20 20 DE E 10 19 11 11 JR 0 PH MG AR WI MA LL TA CY IA BL M ET OF F CY NT HI AN A AL 67 09 09 0 90 30 EA 24 MC Ac TX 25 -2 -[address] 19 KE ti AZ 30 1- 1- 00 SI 16 OH ve OL 90 20 20 DE E AM 21 11 11 JR 1 0 PH AR WI MG MA LL CY IA TA M BL OF F ET CY NT HI AN A TR 65 09 09 0 90 30 EA 24 MC Ac AM 16 -2 -[address] 19 KE ti AD 20 1- 1- 00 SI 17 OH ve OL 62 20 20 DE E [...] 0 DE RA [address] OH 6 PH EP DE AR HE MA N 10 CY A MG OF TA CY BL NT ET HI AN A ME 00 07 08 3 60 30 EA 23 BE Ac TO 09 -2 -[address] 36 SS ti TX 30 0- 2- 00 SI 99 ON [...] 0- 2- 00 SI 00 ON ve TX 75 20 20 DE [place] [address] 0 PH EP 10 AR HE MA N MG CY A TA OF BL ET CY NT HI AN A TR 00 08 08 4 15 10 EA 23 MC Ac IA 16 -2 -[address] 76 KE ti MC 80 2- 2- 00 SI 63 OH ve IN 00 20 20 DE E OL 31 11 11 JR ON 5 PH E AR [place] 0. MA LL 02 CY IA 5% M OF F CR EA CY M NT HI AN A AL 67 08 08 0 90 30 EA 23 MC Ac TX 25 -2 -[address] 76 KE ti AZ 30 2- 2- 00 SI 64 OH ve OL 90 20 20 DE E AM 21 11 11 JR 1 0 PH AR WI MG MA LL CY IA TA M BL OF F ET CY NT HI AN A 00 08 08 0 60 30 EA 23 MC Ac 59 -1 -[address] 63 KE ti 10 1- 1- 00 SI 03 OH ve 50 20 20 DE E 30 11 11 JR 1 PH AR WI MA LL CY IA M OF F CY NT HI AN A AL 67 07 07 0 90 30 EA 23 BE Ac TX 25 -2 -[address] 36 SS [...] ET OF CY NT HI AN A TX 37 07 07 3 30 30 EA [...] 0 DE RA [address] OH 6 PH EP DE AR HE MA N 10 CY A MG OF TA CY BL NT ET HI AN A ME 00 07 07 3 60 30 EA 23 BE Ac TO 09 -2 -[address] 36 SS ti TX 30 0- 0- 00 SI 99 ON [...] ti 10 1- 1- 00 SI 96 OH ve 50 20 20 DE E 30 11 11 JR 1 PH AR WI MA LL CY IA M OF F CY NT HI AN A ME 16 03 06 2 12 30 EA 21 MC Ac TO 71 -2 -[address] 78 KE ti CL 40 1- 0- 00 SI 49 OH ve OP 06 20 20 0 DE E RA 20 11 11 JR OH 6 PH DE AR WI MA LL 10 CY IA M MG OF F TA CY BL NT ET HI AN A 64 04 06 2 30 30 EA 22 MC Ac 67 -2 -[address] 21 KE ti 90 1- 0- 00 SI 02 OH ve 92 20 20 DE E 90 11 11 JR 6 PH AR WI MA LL CY IA M OF F CY NT HI AN A ME 00 04 06 2 60 30 EA 22 MC Ac TO 09 -2 -[address] 21 KE ti TX 30 1- 0- 00 SI 03 OH ve OL 73 20 20 DE E OL 31 11 11 JR 0 PH TA AR WI RT MA LL RA CY IA TE M OF F 50 CY MG NT HI TA AN B A TX 37 06 06 2 30 30 EA 23 MC Ac IL 00 -2 -[address] 01 KE ti OS 00 0- 0- 00 SI 17 OH ve EC 45 20 20 DE E 50 11 11 JR OT 2 PH C AR WI 20 MA LL .6 CY IA M MG OF F TA CY BL NT ET HI AN A TR 65 06 06 0 90 30 EA 23 MC Ac AM 16 -2 -[address] 01 KE ti AD 20 0- 0- 00 SI 87 OH ve OL 62 20 20 DE E 71 11 11 JR HC 1 PH L AR WI 50 MA LL CY IA MG M OF F TA BL CY ET NT HI AN A CR 00 06 06 0 30 30 EA 23 MC Ac ES 31 -2 -[address] 01 KE ti TO 00 0- 0- 00 SI 88 OH ve R 75 20 20 DE E 10 19 11 11 JR 0 PH MG AR WI MA LL TA CY IA BL M ET OF F CY NT HI AN A AL 67 06 06 0 90 30 EA 23 MC Ac TX 25 -2 -[address] 01 KE ti AZ 30 0- 0- 00 SI 89 OH ve OL 90 20 20 DE E [...] TO 00 1- 0- 00 SI 41 OH ve R 75 20 20 DE E 10 19 11 11 JR 0 PH MG AR WI MA LL TA CY IA BL M ET OF F CY NT HI AN A TX 37 03 05 2 30 30 EA 21 MC Ac IL 00 -2 -[address] 78 KE ti OS 00 1- 0- 00 SI 42 OH ve EC 45 20 20 DE E 50 11 11 JR OT 2 PH C AR WI 20 MA LL .6 CY IA M MG OF F TA CY BL NT ET HI AN A ME 16 03 05 2 12 30 EA 21 MC Ac TO 71 -2 -[address] 78 KE ti CL 40 1- 0- 00 SI 49 OH ve OP 06 20 20 0 DE E RA 20 11 11 JR OH 6 PH DE AR WI MA LL 10 CY IA M MG OF F TA CY BL NT ET HI AN A 64 04 05 2 30 30 EA 22 MC Ac 67 -2 -[address] 21 KE ti 90 1- 0- 00 SI 02 OH ve 92 20 20 DE E 90 11 11 JR 6 PH AR WI MA LL CY IA M OF F CY NT HI AN A ME 00 04 05 2 60 30 EA 22 MC Ac TO 09 -2 -[address] 21 KE ti TX 30 1- 0- 00 SI 03 OH ve OL 73 20 20 DE E [...] 0 90 30 EA 22 BE Ac TX 25 -2 -[address] 62 SS [...] .0 ST 56 KE ti MC 80 7- 7- 00 SI 04 OH ve IN 00 20 20 DE E OL 31 11 11 JR ON 5 PH E AR [place] 0. MA LL 02 CY IA 5% M OF F CR EA CY M NT HI AN A 00 05 05 0 60 30 EA 22 MC Ac 59 -0 -[address] 45 KE ti 10 SI 24 OH ve 50 20 20 DE E 30 11 11 JR 1 PH AR WI MA LL CY IA M OF F CY NT HI AN A AL 67 03 04 1 90 30 EA 21 MC Ac TX 25 -2 -[address] 78 KE ti AZ 30 SI 39 OH ve OL 90 20 20 DE E AM 21 11 11 JR 1 0 PH AR WI MG MA LL CY IA TA M BL OF F ET CY NT HI AN A TR 65 03 04 1 90 30 EA 21 MC Ac AM 16 -2 -[address] 78 KE ti AD 20 SI 40 OH ve OL 62 20 20 DE E 71 11 11 JR HC 1 PH L AR WI 50 MA LL CY IA MG M OF F TA BL CY ET NT HI AN A CR 00 03 04 2 30 30 EA 21 MC Ac ES 31 -2 -[address] 78 KE ti TO 00 SI 41 OH ve R 75 20 20 DE E 10 19 11 11 JR 0 PH MG AR WI MA LL TA CY IA BL M ET OF F CY NT HI AN A TX 37 03 04 2 30 30 EA 21 MC Ac IL 00 -2 -[address] 78 KE ti OS 00 SI 42 OH ve EC 45 20 20 DE E 50 11 11 JR OT 2 PH C AR WI 20 MA LL .6 CY IA M MG OF F TA CY BL NT ET HI AN A 64 04 04 2 30 30 EA 22 MC Ac 67 -2 -[address] 21 KE ti 90 SI 02 OH ve 92 20 20 DE E 90 11 11 JR 6 PH AR WI MA LL CY IA M OF F CY NT HI AN A ME 00 04 04 2 60 30 EA 22 MC Ac TO 09 -2 -[address] 21 KE ti TX 30 SI 03 OH ve OL 73 20 20 DE E OL 31 11 11 JR 0 PH TA AR WI RT MA LL RA CY IA TE M OF F 50 CY MG NT HI TA AN B A 00 04 04 0 60 30 EA 22 MC Ac 59 -0 -[address] 01 KE ti 10 SI 02 OH ve 50 20 20 DE E 30 11 11 JR 1 PH AR WI MA LL CY IA M OF F CY NT HI AN A ME 00 11 03 3 60 30 EA 20 BE Ac TO 09 -1 -[address] 06 SS ti TX 30 SI 82 ON ve OL 73 [...] 1 90 30 EA 21 MC Ac TX 25 -2 -[address] 78 KE ti AZ 30 SI 39 OH ve OL 90 20 20 DE E AM 21 11 11 JR 1 0 PH AR WI MG MA LL CY IA TA M BL OF F ET CY NT HI AN A TR 65 03 03 1 90 30 EA 21 MC Ac AM 16 -2 -[address] 78 KE ti AD 20 SI 40 OH ve OL 62 20 20 DE E 71 11 11 JR HC 1 PH L AR [place] 50 MA LL CY IA MG M OF F TA BL CY ET NT HI AN A CR 00 03 03 2 30 30 EA 21 MC Ac ES 31 -2 -[address] 78 KE ti TO 00 SI 41 OH ve R 75 20 20 DE E 10 19 11 11 JR 0 PH MG AR WI MA LL TA CY IA BL M ET OF F CY NT HI AN A TX 37 03 03 2 30 30 EA 21 MC Ac IL 00 -2 -[address] 78 KE ti OS 00 SI 42 OH ve EC 45 20 20 DE E 50 11 11 JR OT 2 PH C AR [place] 20 MA LL .6 CY IA M MG OF F TA CY BL NT ET HI AN A ME 16 03 03 2 12 30 EA 21 MC Ac TO 71 -2 -[address] 78 KE ti CL 40 SI 49 OH ve OP 06 20 20 0 DE E RA 20 11 11 JR OH 6 PH DE AR WI MA LL 10 CY IA M MG OF F TA CY BL NT ET HI AN A 00 03 03 0 60 30 EA 21 BE Ac 59 -0 -[address] 54 SS ti 10 SI 16 ON ve 50 20 20 [...] ET OF CY NT HI AN A TX 37 11 02 3 30 30 EA [...] .0 ST 23 AM ti IX 31 SI 21 ve 17 20 20 DE MO 75 10 10 11 TORRES 6 PH MM MG AR ED MA N TA CY BL ET OF CY NT HI AN A TR 65 01 02 1 90 30 EA 20 MC Ac AM 16 -2 -[address] 90 KE ti AD 20 SI 01 OH ve OL 62 20 20 DE E 71 11 11 JR HC 1 PH L AR WI 50 MA LL CY IA MG M OF F TA BL CY ET NT HI AN A AL 00 01 02 1 90 30 EA 20 MC Ac TX 78 -2 -[address] 90 KE ti AZ 11 SI 02 OH ve OL 07 20 20 DE E AM 90 11 11 JR 1 1 PH AR WI MG MA LL CY IA TA M BL OF F ET CY NT HI AN A ME 00 11 02 3 60 30 EA 20 BE Ac TO -[address] 06 SS ti TX 30 9 SI 82 ON ve OL 73 20 [...] MC 80 5- 5- 00 SI 38 OH ve IN 00 20 20 DE E [...] .0 ST 90 KE ti AD 20 1 SI 01 OH ve OL 62 20 20 DE E 71 11 11 JR HC 1 PH L AR WI 50 MA LL CY IA MG M OF F TA BL CY ET NT HI AN A AL 00 01 01 1 90 30 EA 20 MC Ac TX 78 -2 -[address] 90 KE ti AZ 11 SI 02 OH ve OL 07 20 20 DE E [...] ET OF CY NT HI AN A TX 37 11 01 3 30 30 EA [...] 9- 0- 00 SI 85 ON ve TX 75 20 20 DE [place] [address] 0 PH EP 10 AR HE MA N MG CY A TA OF BL ET CY NT HI AN A ME 00 11 01 3 60 30 EA 20 BE Ac TO 09 -1 -[address] 06 SS ti TX 30 9- 3- 00 SI 82 ON [...] A OF CY NT HI AN A TX 37 11 12 3 30 30 EA [...] 9- 0- 00 SI 85 ON ve TX 75 20 20 DE [place] [address] 0 PH EP 10 AR HE MA N MG CY A TA OF BL ET CY NT HI AN A AL 00 12 12 0 90 30 EA 20 MC Ac TX 78 -2 -[address] 47 KE ti AZ 11 0- 0- 00 SI 79 OH ve OL 07 20 20 DE E AM 90 10 10 JR 1 1 PH AR WI MG MA LL CY IA TA M BL OF F ET CY NT HI AN A TR 65 12 12 0 90 30 EA 20 MC Ac AM 16 -2 -[address] 47 KE ti AD 20 0- 0- 00 SI 80 OH ve OL 62 20 20 DE E [...] MC 80 3- 3- 00 SI 36 OH ve IN 00 20 20 DE E [...] ST 06 SS ti AD 20 9 SI 80 ON ve OL 62 20 20 DE [address] HC 1 PH EP L AR HE 50 MA N CY A MG OF TA BL CY ET NT HI AN A AL 00 11 11 0 90 30 EA 20 BE Ac TX 78 -1 -[address] 06 SS ti AZ 11 9 SI 81 ON ve OL 07 20 20 DE AM [address] 1 1 PH EP AR HE MG MA N CY A TA BL OF ET CY NT HI AN A ME 00 11 11 3 60 30 EA 20 BE Ac TO 09 -1 -[address] 06 SS ti TX 30 9 9 SI 82 ON ve OL 73 20 20 DE OL [address] 0 PH EP TA AR HE RT MA N RA CY A TE OF 50 CY MG NT HI TA AN B A TX 37 11 11 3 30 30 EA [...] ST 06 SS ti NO 23 9- 9- 00 SI 85 ON ve TX 75 20 20 DE IL 96 10 [...] 0 DE RA [address] OH 6 PH EP DE AR HE MA N 10 CY A MG OF TA CY BL NT ET HI AN A TX 37 08 10 2 30 30 EA [...] -2 -[address] 79 SS ti TX 30 0- 8- 00 SI 03 ON ve OL 73 20 20 DE OL [address] 0 PH EP TA AR HE RT MA N RA CY A TE OF 50 CY MG NT HI TA AN B A AL 00 08 10 2 90 30 EA 18 BE Ac TX 78 -2 -[address] 79 SS [...] 0 DE RA [address] OH 6 PH EP DE AR HE MA N 10 CY A MG OF TA CY BL NT ET HI AN A LI 00 08 10 2 30 30 EA 18 BE Ac SI 17 -2 -[address] 79 SS ti NO 23 0- 8- 00 SI 09 ON ve TX 75 20 20 DE IL 96 10 [...] MC 80 7- 7- 00 SI 95 OH ve IN 00 20 20 DE E [...] BL CY ET NT HI AN A TX 37 08 09 2 30 30 EA [...] -2 -[address] 79 SS ti TX 30 0- 7- 00 SI 03 ON ve OL 73 20 20 DE OL [address] 0 PH EP TA AR HE RT MA N RA CY A TE OF 50 CY MG NT HI TA AN B A AL 00 08 09 2 90 30 EA 18 BE Ac TX 78 -2 -[address] 79 SS [...] 0- 7- 00 SI 09 ON ve TX 75 20 20 [place] [address] 0 PH EP 10 AR HE MA N MG CY A TA OF BL ET CY NT HI AN A TX 37 08 08 2 30 30 EA [...] -2 -[address] 79 SS ti TX 30 0- 0- 00 SI 03 ON ve OL 73 20 20 DE OL [address] 0 PH EP TA AR HE RT MA N RA CY A TE OF 50 CY MG NT HI TA AN B A AL 00 08 08 2 90 30 EA 18 BE Ac TX 78 -2 -[address] 79 SS [...] 0 DE RA [address] OH 6 PH EP DE AR HE MA N 10 CY A MG OF TA CY BL NT ET HI AN A LI 00 08 08 2 30 30 EA 18 BE Ac SI 17 -2 -[address] 79 SS ti NO 23 0- 0- 00 SI 09 ON ve TX 75 20 20 DE IL 96 10 [...] MC 80 9- 0- 00 SI 54 OH ve IN 00 20 20 DE E OL 31 10 10 JR ON 5 PH E AR [place] 0. MA LL 02 CY IA 5% M OF F CR EA CY M NT HI AN A AL 00 05 07 2 90 30 EA 17 BE Ac TX 78 -1 -[address] 66 SS ti AZ 11 SI 19 ON ve OL 07 20 20 DE AM [address] 1 1 PH EP AR HE MG MA N CY A TA BL OF ET CY NT HI AN A 00 05 07 2 60 30 EA 17 BE Ac 59 -1 -[address] 66 SS ti 10 9 00 SI 20 ON ve 50 20 20 DE [address] 1 PH EP AR HE MA N CY A OF CY NT HI AN A TR 65 05 07 2 90 30 EA 17 BE Ac AM 16 -1 -[address] 66 SS ti AD 20 9 9 00 SI 21 ON ve OL 62 20 20 DE [address] HC 1 PH EP L AR HE 50 MA N CY A MG OF TA BL CY ET NT HI AN A ME 00 05 07 2 60 30 EA 17 BE Ac TO 09 -1 -[address] 66 SS ti TX 30 9 9- 00 SI 22 ON ve OL 73 20 20 DE OL [address] 0 PH EP TA AR HE RT MA N RA CY A TE OF 50 CY MG NT HI TA AN B A TX 37 05 07 2 30 30 EA 17 BE Ac IL 00 -1 -[address] 66 SS ti OS 00 9 SI 23 ON ve EC 45 20 20 DE [address] OT 2 PH EP C AR HE 20 MA N .6 CY A MG OF TA CY BL NT ET HI AN A CR 00 06 07 2 30 30 EA 18 MC Ac ES 31 -2 -[address] 06 KE ti TO SI 29 OH ve R 75 20 20 DE E 10 19 10 10 JR 0 PH MG AR WI MA LL TA CY IA BL M ET OF F CY NT HI AN A LI 00 06 07 2 30 30 EA 18 MC Ac SI 17 -2 -[address] 06 KE ti NO 23 SI 30 OH ve TX 75 20 20 DE E [place] 96 10 10 JR 0 PH 10 AR WI MA LL MG CY IA M TA OF F BL ET CY NT HI AN A CR 00 06 06 2 30 30 EA 18 MC Ac ES 31 -2 -[address] 06 KE ti TO SI 29 OH ve R 75 20 20 DE E 10 19 10 10 JR 0 PH MG AR WI MA LL TA CY IA BL M ET OF F CY NT HI AN A LI 00 06 06 2 30 30 EA 18 MC Ac SI 17 -2 -[address] 06 KE ti NO 23 SI 30 OH ve TX 75 20 20 DE E [place] 96 10 10 JR 0 PH 10 AR WI MA LL MG CY IA M TA OF F BL ET CY NT HI AN A AL 00 05 06 2 90 30 EA 17 BE Ac TX 78 -1 -[address] 66 SS [...] -1 -[address] 66 SS ti TX 30 00 SI 22 ON ve OL 73 20 20 DE OL [address] 0 PH EP TA AR HE RT MA N RA CY A TE OF 50 CY MG NT HI TA AN B A TX 37 05 06 2 30 30 EA [...] 43 KE ti NO 23 SI 61 OH ve TX 75 20 20 DE E IL 96 10 10 JR 0 PH 10 AR WI MA LL MG CY IA M TA OF F BL ET CY NT HI AN A CR 00 02 05 3 30 30 EA 16 MC Ac ES 31 -1 -[address] 43 KE ti TO 00 SI 62 OH ve R 75 20 20 DE E [...] -1 -[address] 66 SS ti TX 30 SI 22 ON ve OL 73 20 20 DE OL [address] 0 PH EP TA AR HE RT MA N RA CY A TE OF 50 CY MG NT HI TA AN B A TX 37 05 05 2 30 30 EA [...] 0 DE RA [address] OH 6 PH EP DE AR HE MA N 10 CY A MG OF TA CY BL NT ET HI AN A AL 00 05 05 2 90 30 EA 17 BE Ac TX 78 -1 -[address] 66 SS [...] ST 72 SS ti CL 40 6 00 SI 19 ON ve OP 06 20 20 0 DE RA [address] OH 6 PH EP DE AR HE MA N 10 CY A MG OF TA CY BL NT ET HI AN A TX 37 01 04 3 30 30 EA 16 MC Ac IL 00 -1 -[address] 00 KE ti OS 00 SI 11 OH ve EC 45 20 20 DE E 50 10 10 JR OT 2 PH C AR WI 20 MA LL .6 CY IA M MG OF F TA CY BL NT ET HI AN A ME 00 01 04 3 60 30 EA 16 MC Ac TO 09 -1 -[address] 00 KE ti TX 30 SI 13 OH ve OL 73 20 20 DE E OL 31 10 10 JR 0 PH TA AR WI RT MA LL RA CY IA TE M OF F 50 CY MG NT HI TA AN B A LI 00 02 04 3 30 30 EA 16 MC Ac SI 17 -1 -[address] 43 KE ti NO 23 SI 61 OH ve TX 75 20 20 DE E [place] 96 10 10 JR 0 PH 10 AR WI MA LL MG CY IA M TA OF F BL ET CY NT HI AN A CR 00 02 04 3 30 30 EA 16 MC Ac ES 31 -1 -[address] 43 KE ti TO 00 SI 62 OH ve R 75 20 20 DE E 10 19 10 10 JR 0 PH MG AR WI MA LL TA CY IA BL M ET OF F CY NT HI AN A AL 00 02 04 2 90 30 EA 16 MC Ac TX 78 -2 -[address] 45 KE ti AZ 11 SI 59 OH ve OL 07 20 20 DE E AM 90 10 10 JR 1 1 PH AR WI MG MA LL CY IA TA M BL OF F ET CY NT HI AN A 00 02 04 2 60 30 EA 16 MC Ac 59 -2 -[address] 45 KE ti 10 0 SI 60 OH ve 50 20 20 DE E 30 10 10 JR 1 PH AR WI MA LL CY IA M OF F CY NT HI AN A TR 65 02 04 2 90 30 EA 16 MC Ac AM 16 -2 -[address] 45 KE ti AD 20 0 SI 61 OH ve OL 62 20 20 DE E 71 10 10 JR HC 1 PH L AR WI 50 MA LL CY IA MG M OF F TA BL CY ET NT HI AN A TR 00 04 04 1 60 15 EA 17 MC Ac IA 16 -1 -[address] 25 KE ti MC 80 SI 54 OH ve IN 00 20 20 DE E OL 31 10 10 JR ON 5 PH E AR [place] 0. MA LL 02 CY IA 5% M OF F CR EA CY M NT HI AN A 00 02 03 2 60 30 EA 16 MC Ac 59 -2 -[address] 45 KE ti 10 0 SI 60 OH ve 50 20 20 DE E 30 10 10 JR 1 PH AR WI MA LL CY IA M OF F CY NT HI AN A ME 16 10 03 2 12 30 EA 14 BE Ac TO 71 -1 -[address] 72 SS ti CL 40 SI 19 ON ve OP 06 20 20 0 DE RA [address] OH 6 PH EP DE AR HE MA N 10 CY A MG OF TA CY BL NT ET HI AN A TX 37 01 03 3 30 30 EA 16 MC Ac IL 00 -1 -[address] 00 KE ti OS 00 SI 11 OH ve EC 45 20 20 DE E 50 10 10 JR OT 2 PH C AR WI 20 MA LL .6 CY IA M MG OF F TA CY BL NT ET HI AN A ME 00 01 03 3 60 30 EA 16 MC Ac TO 09 -1 -[address] 00 KE ti TX 30 SI 13 OH ve OL 73 20 20 DE E OL 31 10 10 JR 0 PH TA AR WI RT MA LL RA CY IA TE M OF F 50 CY MG NT HI TA AN B A LI 00 02 03 3 30 30 EA 16 MC Ac SI 17 -1 -[address] 43 KE ti NO 23 SI 61 OH ve TX 75 20 20 DE E IL 96 10 10 JR 0 PH 10 AR WI MA LL MG CY IA M TA OF F BL ET CY NT HI AN A CR 00 02 03 3 30 30 EA 16 MC Ac ES 31 -1 -[address] 43 KE ti TO 00 SI 62 OH ve R 75 20 20 DE E 10 19 10 10 JR 0 PH MG AR WI MA LL TA CY IA BL M ET OF F CY NT HI AN A AL 00 02 03 2 90 30 EA 16 MC Ac TX 78 -2 -[address] 45 KE ti AZ 11 0 SI 59 OH ve OL 07 20 20 DE E AM 90 10 10 JR 1 1 PH AR WI MG MA LL CY IA TA M BL OF F ET CY NT HI AN A TR 65 02 03 2 90 30 EA 16 MC Ac AM 16 -2 -[address] 45 KE ti AD 20 0- SI 61 OH ve OL 62 20 20 DE E 71 10 10 JR HC 1 PH L AR WI 50 MA LL CY IA MG M OF F TA BL CY ET NT HI AN A TR 00 10 02 02 30 10 EA 14 MC Ac IA 16 -1 -[address] 73 KE ti MC 80 7 6 00 SI 69 OH ve IN 00 20 20 DE E OL 31 09 10 JR ON 5 PH E AR WI 0. MA LL 02 CY IA 5% M OF F CR CY EA NT M HI AN A ME 16 10 02 01 12 30 EA 14 BE Ac TO 71 -1 -[address] 72 SS ti CL 40 6- 6- 00 SI 19 ON ve OP 06 20 20 0 DE RA [address] OH 6 PH EP DE AR HE MA N 10 CY A MG OF CY TA NT BL HI ET AN A TX 37 01 02 01 30 30 EA 16 MC Ac IL 00 -1 -[address] 00 KE ti OS 00 8 6 SI 11 OH ve EC 45 20 20 DE E 50 10 10 JR OT 2 PH C AR WI 20 MA LL .6 CY IA M MG OF F CY TA NT BL HI ET AN A ME 00 01 02 01 60 30 EA 16 MC Ac TO 09 -1 -[address] 00 KE ti TX 30 8- 6 00 SI 13 OH ve OL 73 20 20 DE E OL 31 10 10 JR 0 PH TA AR WI RT MA LL RA CY IA TE M OF F 50 CY NT MG HI AN TA A B LI 00 02 00 30 30 EA 16 BE Ac SI 17 -1 -[address] 43 SS ti NO 23 SI 61 ON ve TX 75 20 20 DE [place] [address] 0 PH EP 10 AR HE MA N MG CY A TA OF BL CY ET NT HI AN A CR 00 02 02 00 30 30 EA 16 MC Ac ES 31 -1 -[address] 43 KE ti TO 00 SI 62 OH ve R 75 20 20 DE E 10 19 10 10 JR 0 PH MG AR WI MA LL TA CY IA BL M ET OF F CY NT HI AN A TR 65 01 01 00 90 30 EA 16 MC Ac AM 16 -1 -[address] 00 KE ti AD 20 8 SI 09 OH ve OL 62 20 20 DE E 71 10 10 JR HC 1 PH L AR WI 50 MA LL CY IA MG M OF F TA CY BL NT ET HI AN A CR 00 10 11 10 30 30 EA 14 BE Ac ES [...] ST 00 KE ti 10 SI 10 OH ve 50 20 20 DE E 30 10 10 JR 1 PH AR WI MA LL CY IA M OF F CY NT HI AN A TX 37 01 01 00 30 30 EA 16 MC Ac IL 00 -1 -[address] 00 KE ti OS 00 SI 11 OH ve EC 45 20 20 DE E 50 10 10 JR OT 2 PH C AR WI 20 MA LL .6 CY IA M MG OF F CY TA NT BL HI ET AN A ME 00 11 09 00 60 30 EA 16 MC Ac TO 09 -1 -[address] 00 KE ti TX 30 SI 13 OH ve OL 73 20 20 DE E OL 31 10 10 JR 0 PH TA AR WI RT MA LL RA CY IA TE M OF F 50 CY NT MG HI AN TA A B LI 00 10 02 30 30 EA 14 BE Ac SI 17 -1 -[address] 73 SS ti NO 23 SI 72 ON ve TX 75 20 20 DE [place] [address] 0 PH EP 10 AR HE MA N MG CY A TA OF BL CY ET NT HI AN A AL 00 01 01 00 90 30 EA 16 MC Ac TX 78 -1 -[address] 00 KE ti AZ 11 8 8 00 SI 12 OH ve OL 07 20 20 DE E AM 90 10 10 JR 1 1 PH AR WI MG MA LL CY IA TA M BL OF F ET CY NT HI AN A TX 37 10 12 02 30 30 EA 14 MC Ac IL 00 -1 -[address] 73 KE ti OS 00 7 SI 64 OH ve EC 45 20 20 DE E 50 09 09 JR OT 2 PH C AR WI 20 MA LL .6 CY IA M MG OF F CY TA NT BL HI ET AN A TR 65 10 12 02 90 30 EA 14 MC Ac AM 16 -1 -[address] 73 KE ti AD 20 7 SI 66 OH ve OL 62 20 20 DE E 71 09 09 JR HC 1 PH L AR WI 50 MA LL CY IA MG M OF F TA CY BL NT ET HI AN A ME 00 10 12 00 60 30 EA 14 BE Ac TO 09 -1 -[address] 73 SS ti TX 30 SI 71 ON ve OL 73 20 20 DE OL [address] 0 PH EP TA AR HE RT MA N RA CY A TE OF 50 CY NT MG HI AN TA A B 00 12 12 00 60 30 EA 15 MC Ac 59 -1 -[address] 61 KE ti 10 SI 52 OH ve 50 20 20 DE E 30 [...] .0 ST 73 SS ti NO 23 7 SI 72 ON ve TX 75 20 20 DE [place] [address] 0 PH EP 10 AR HE MA N MG CY A TA OF BL CY ET NT HI AN A AL 00 10 12 02 90 30 EA 14 MC Ac TX 78 -1 -[address] 73 KE ti AZ 11 7- 1- 00 SI 67 OH ve OL 07 20 20 DE E AM 90 09 09 JR 1 1 PH AR WI MG MA LL CY IA TA M BL OF F ET CY NT HI AN A TR 00 10 12 01 30 10 EA 14 MC Ac IA 16 -1 -[address] 73 KE ti MC 80 7- 7- 00 SI 69 OH ve IN 00 20 20 DE E OL 31 09 09 JR ON 5 PH E AR [place] 0. MA LL 02 CY IA 5% M OF F CR CY EA NT M HI AN A 00 11 12 00 60 30 EA 15 MC Ac 59 -1 -[address] 17 KE ti 10 7- 3- 00 SI 53 OH ve 50 20 20 DE E 30 [...] ET OF CY NT HI AN A TX 37 10 12 30 30 EA 14 MC Ac IL 00 -1 -[address] 73 KE ti OS 00 7- 3- 00 SI 64 OH ve EC 45 20 20 DE E 50 09 09 JR OT 2 PH C AR WI 20 MA LL .6 CY IA M MG OF F CY TA NT BL HI ET AN A TR 65 10 12 01 90 30 EA 14 Ac AM 16 -1 -[address] 73 KE ti AD 20 7- 3- 00 SI 66 OH ve OL 62 20 20 DE E 71 09 09 JR HC 1 PH L AR WI 50 MA LL CY IA MG M OF F TA CY BL NT ET HI AN A LI 00 10 12 00 30 30 EA 14 BE Ac SI 17 -1 -[address] 73 SS ti NO 23 7- 3- 00 SI 72 ON ve TX 75 20 20 DE [place] [address] 0 PH EP 10 AR HE MA N MG CY A TA OF BL CY ET NT HI AN A AL 00 10 12 01 90 30 EA 14 MC Ac TX 78 -1 -[address] 73 KE ti AZ 11 7- 3- 00 SI 67 OH ve OL 07 20 20 DE E AM 90 09 09 JR 1 1 PH AR WI MG MA LL CY IA TA M BL OF F ET CY NT HI AN A TX 37 10 11 00 30 30 EA 14 MC Ac IL 00 -1 -[address] 73 KE ti OS 00 7- 5- 00 SI 64 OH ve EC 45 20 20 DE E 50 09 09 JR OT 2 PH C AR WI 20 MA LL .6 CY IA M MG OF F CY TA NT BL HI ET AN A AL 00 10 11 00 90 30 EA 14 MC Ac TX 78 -1 -[address] 73 KE ti AZ 11 7- 5- 00 SI 67 OH ve OL 07 20 20 DE E AM 90 09 09 JR 1 1 PH AR WI MG MA LL CY IA TA M BL OF F ET CY NT HI AN A TR 65 10 11 00 90 30 EA 14 MC Ac AM 16 -1 -[address] 73 KE ti AD 20 7- 5- 00 SI 66 OH ve OL 62 20 20 DE E 71 09 09 JR HC 1 PH L AR WI 50 MA LL CY IA MG M OF F TA CY BL NT ET HI AN A TR 00 10 11 00 30 10 EA 14 MC Ac IA 16 -1 -[address] 73 KE ti MC 80 7- 5- 00 SI 69 OH ve IN 00 20 20 DE E OL 31 09 09 JR ON 5 PH E AR [place] 0. MA LL 02 CY IA 5% M OF F CR CY EA NT M HI AN A DO 53 10 11 00 20 10 EA 14 MC Ac XY 48 -1 -[address] 73 KE ti CY 90 7- 5- 00 SI 75 OH ve CL 11 20 20 DE E IN 90 09 09 JR E 5 PH HY AR WI CL MA LL AT CY IA E M 10 OF F 0 CY MG NT HI CA AN P A 00 10 11 00 60 30 EA 14 MC Ac 59 -1 -[address] 73 KE ti 10 7- 5- 00 SI 65 OH ve 50 20 20 DE E 30 [...] 0 DE RA [address] OH 6 PH EP DE AR HE MA N 10 CY A MG OF CY TA NT BL HI ET AN A LI 00 05 10 05 30 30 EA 12 BE Ac SI 17 -1 -[address] 81 SS ti NO 23 9- 2- 00 SI 07 ON ve TX 75 20 20 DE [place] [address] 0 PH EP 10 AR HE MA N MG CY A TA OF BL CY ET NT HI AN A ME 00 05 10 04 60 30 EA 12 BE Ac TO 09 -1 -[address] 81 SS ti TX 30 9- 2- 00 SI 04 ON ve OL 73 20 20 DE OL [address] 0 PH EP TA AR HE RT MA N RA CY A TE OF 50 CY NT MG HI AN TA A B CR 00 08 10 02 30 30 EA 13 BE Ac ES 31 -1 -[address] 86 SS ti TO 00 2 SI 91 ON ve R 75 20 20 DE [address] 0 PH EP MG AR HE MA N TA CY A BL ET OF CY NT HI AN A AL 00 09 09 00 90 30 EA 14 MC Ac TX 78 -1 -[address] 29 KE ti AZ 11 7 4 SI 71 OH ve OL 07 20 20 DE E AM 90 09 09 JR 1 1 PH AR WI MG MA LL CY IA TA M BL OF F ET CY NT HI AN A TX 37 06 09 03 30 30 EA 13 MC Ac IL 00 -1 -[address] 20 KE ti OS 00 SI 40 OH ve EC 45 20 20 DE E 50 09 09 JR OT 2 PH C AR WI 20 MA LL .6 CY IA M MG OF F CY TA NT BL HI ET AN A 00 09 00 60 30 EA 14 MC Ac 59 -1 -[address] 29 KE ti 10 7 SI 72 OH ve 50 20 20 DE E 30 09 09 JR 1 PH AR WI MA LL CY IA M OF F CY NT HI AN A TR 65 09 09 00 90 30 EA 14 MC Ac AM 16 -1 -[address] 29 KE ti AD 20 - 4 SI 73 OH ve OL 62 20 20 DE E [...] 0 DE RA [address] OH 6 PH EP DE AR HE MA N 10 CY A MG OF CY TA NT BL HI ET AN A TR 00 09 00 15 5 EA 14 MC Ac IA 16 -1 -[address] 29 KE ti MC 80 7- 4- 00 SI 74 OH ve IN 00 20 20 DE E [...] 9- 4- 00 SI 07 ON ve TX 75 20 20 DE [place] [address] 0 PH EP 10 AR HE MA N MG CY A TA OF BL CY ET NT HI AN A ME 00 05 09 03 60 30 EA 12 BE Ac TO 09 -1 -[address] 81 SS ti TX 30 9- 4- 00 SI 04 ON ve OL 73 20 20 DE OL [address] 0 PH EP TA AR HE RT MA N RA CY A TE OF 50 CY NT MG HI AN TA A B LI 00 05 08 03 30 30 EA 12 BE Ac SI 17 -1 -[address] 81 SS ti NO 23 9- 7- 00 SI 07 ON ve [place] 75 20 20 DE [place] [address] 0 PH EP 10 AR HE MA N MG CY A TA OF BL CY ET NT HI AN A AL 00 08 08 00 90 30 EA 13 MC Ac TX 78 -1 -[address] 86 KE ti AZ 11 7- 7- 00 SI 90 OH ve OL 07 20 20 DE E AM 90 09 09 JR 1 1 PH AR WI MG MA LL CY IA TA M BL OF F ET CY NT HI AN A 00 08 08 00 60 30 EA 13 MC Ac 59 -1 -[address] 86 KE ti 10 7- 7- 00 SI 89 OH ve 50 20 20 DE E 30 09 09 JR 1 PH AR WI MA LL CY IA M OF F CY NT HI AN A TR 65 08 08 00 [...] -1 -[address] 81 SS ti TX 30 9- 7- 00 SI 04 ON [...] ST 86 SS ti TO 00 7- 7- 00 SI 91 ON ve R 75 20 20 DE [address] 0 PH EP MG AR HE MA N TA CY A BL ET OF CY NT HI AN A ME 16 05 08 02 12 30 EA 12 BE Ac TO 71 -1 -[address] 81 SS ti CL 40 9- 7- 00 SI 06 ON ve OP 06 20 20 0 DE RA [address] OH 6 PH EP DE AR HE MA N 10 CY A MG OF CY TA NT BL HI ET AN A TX 37 06 08 02 30 30 EA 13 MC Ac IL 00 -1 -[address] 20 KE ti OS 00 9- 7- 00 SI 40 OH ve EC 45 20 20 DE E 50 09 09 JR OT 2 PH C AR WI 20 MA LL .6 CY IA M MG OF F CY TA NT BL HI ET AN A TR 00 08 08 00 [...] 00 90 30 EA 13 MC Ac TX 78 -1 -[address] 53 KE ti AZ 11 7- 0- 00 SI 33 OH ve OL 07 20 20 DE E AM 90 09 09 JR 1 1 PH AR WI MG MA LL CY IA TA M BL OF F ET CY NT HI AN A ME 16 05 07 01 12 30 EA 12 BE Ac TO 71 -1 -[address] 81 SS ti CL 40 9- 0- 00 SI 06 ON ve OP 06 20 20 0 DE RA [address] OH 6 PH EP DE AR HE MA N 10 CY A MG OF CY TA NT BL HI ET AN A ME 00 05 07 01 60 30 EA 12 BE Ac TO 09 -1 -[address] 81 SS ti TX 30 9- 0- 00 SI 04 ON ve OL 73 20 20 DE OL [address] 0 PH EP TA AR HE RT MA N RA CY A TE OF 50 CY NT MG HI AN TA A B TX 37 06 07 01 30 30 EA 13 MC Ac IL 00 -1 -[address] 20 KE ti OS 00 9- 0- 00 SI 40 OH ve EC 45 20 20 DE E 50 09 09 JR OT 2 PH C AR WI 20 MA LL .6 CY IA M MG OF F CY TA NT BL HI ET AN A TR 65 07 07 00 90 30 EA 13 MC Ac AM 16 -1 -[address] 53 KE ti AD 20 7- 0- 00 SI 35 OH ve OL 62 20 20 DE E 71 09 09 JR HC 1 PH L AR WI 50 MA LL CY IA MG M OF F TA CY BL NT ET HI AN A LI 00 05 07 02 30 30 EA 12 BE Ac SI 17 -1 -[address] 81 SS ti NO 23 9- 0- 00 SI 07 ON ve [place] 75 20 20 [place] [address] 0 PH EP 10 AR HE MA N MG CY A TA OF BL CY ET NT HI AN A 00 07 07 00 60 30 EA 13 MC Ac 59 -1 -[address] 53 KE ti 10 7- 0- 00 SI 34 OH ve 50 20 20 DE E 30 [...] OF CY NT HI AN A 00 06 07 00 60 30 EA 13 MC Ac 59 -1 -[address] 20 KE ti 10 9- 2- 00 SI 38 OH ve 50 20 20 DE E 30 09 09 JR 1 PH AR WI MA LL CY IA M OF F CY NT HI AN A ME 00 05 07 00 60 30 EA 12 BE Ac TO 09 -1 -[address] 81 SS ti TX 30 9- 2- 00 SI 04 ON ve OL 73 20 20 DE OL [address] 0 PH EP TA AR HE RT MA N RA CY A TE OF 50 CY NT MG HI AN TA A B TX 37 06 07 00 30 30 EA 13 MC Ac IL 00 -1 -[address] 20 KE ti OS 00 9- 2- 00 SI 40 OH ve EC 45 20 20 DE E 50 09 09 JR OT 2 PH C AR WI 20 MA LL .6 CY IA M MG OF F CY TA NT BL HI ET AN A AL 00 06 07 00 90 30 EA 13 MC Ac TX 78 -1 -[address] 20 KE ti AZ 11 9- 2- 00 SI 37 OH ve OL 07 20 20 DE E AM 90 09 09 JR 1 1 PH AR WI MG MA LL CY IA TA M BL OF F ET CY NT HI AN A CR 00 05 07 01 30 30 EA 12 BE Ac ES 31 -1 -[address] 81 SS ti TO 00 9 2- 00 SI 08 ON ve R 75 20 20 DE [address] 0 PH EP MG AR HE MA N TA CY A BL ET OF CY NT HI AN A TR 60 06 07 00 90 30 EA 13 MC Ac AM 50 -1 -[address] 20 KE ti AD 50 9- 2- 00 SI 39 OH ve OL 17 20 20 DE E 10 09 09 JR HC 8 PH L AR WI 50 MA LL CY IA MG M OF F TA CY BL NT ET HI AN A LI 00 05 07 01 30 30 EA 12 BE Ac SI 17 -1 -[address] 81 SS ti NO 23 9 2 SI 07 ON ve TX 75 20 20 [place] [address] 0 PH EP 10 AR HE MA N MG CY A TA OF BL CY ET NT HI AN A DI 00 06 06 00 60 30 EA 13 MA Ac CL 78 -0 -[address] 05 IR ti OF 11 SI 09 ve EN 78 20 20 DE SC AC 90 09 09 OT 1 PH T SO AR D D MA EC CY 75 OF CY MG NT HI TA AN B A AL 00 05 06 00 90 30 EA 12 MC Ac TX 78 -1 -[address] 80 KE ti AZ 11 9 4 00 SI 89 OH ve OL 07 20 20 DE E AM 90 09 09 JR 1 1 PH AR WI MG MA LL CY IA TA M BL OF F ET CY NT HI AN A TX 37 02 06 03 30 30 EA 11 MC Ac IL 00 -1 -[address] 51 KE ti OS 00 7- 4- 00 SI 23 OH ve EC 45 20 20 DE E 50 09 09 JR OT 2 PH C AR WI 20 MA LL .6 CY IA M MG OF F CY TA NT BL HI ET AN A ME 00 02 06 03 60 30 EA 11 TORRES Ac TO 09 -1 -[address] 51 RV ti TX 30 7- 4- 00 SI 57 EY ve OL 73 20 20 DE OL 31 09 09 LORRIE 0 PH DI TA AR RT MA RA CY TE OF 50 CY NT MG HI AN TA A B 00 05 06 00 60 30 EA 12 MC Ac 59 -1 -[address] 80 KE ti 10 9- 4- 00 SI 88 OH ve 50 20 20 DE E 30 [...] NT M HI AN A CR 00 05 06 00 30 30 EA 12 BE Ac ES 31 -1 -[address] 81 SS ti TO 00 9- 4- 00 SI 08 ON ve R 75 [...] 0 DE RA [address] OH 6 PH EP DE AR HE MA N 10 CY A MG OF CY TA NT BL HI ET AN A LI 00 05 06 00 30 30 EA 12 BE Ac SI 17 -1 -[address] 81 SS ti NO 23 9- 4- 00 SI 07 ON ve TX 75 20 20 DE [place] 96 09 [...] NT ET HI AN A AL 00 04 05 00 90 30 EA 12 BE Ac TX 78 -1 -[address] 39 SS ti AZ 11 8- 7- 00 SI 75 ON ve OL 07 20 20 DE AM [address] 1 1 PH EP AR HE MG MA N CY A TA BL OF ET CY NT HI AN A TX 37 02 04 02 30 30 EA 11 MC Ac IL 00 -1 -[address] 51 KE ti OS 00 7- 3- 00 SI 23 OH ve EC 45 20 20 DE E [...] -1 -[address] 51 RV ti TX 30 7- 3- 00 SI 57 EY [...] EA NT M HI AN A ME 00 02 03 01 60 30 EA 11 TORRES Ac TO 09 -1 -[address] 51 RV ti TX 30 7- 6- 00 SI 57 EY ve OL 73 20 20 DE OL 31 09 09 LORRIE 0 PH DI TA AR RT MA RA CY TE OF 50 CY NT MG HI AN TA A B TX 37 02 03 01 30 30 EA 11 MC Ac IL 00 -1 -[address] 51 KE ti OS 00 7- 6- 00 SI 23 OH ve EC 45 20 20 DE E 50 09 09 JR OT 2 PH C AR WI 20 MA LL .6 CY IA M MG OF F CY TA NT BL HI ET AN A TR 60 03 03 00 90 30 EA 11 TORRES Ac AM 50 -1 -[address] 96 RV ti AD 50 9- 6- 00 SI 90 EY ve OL 17 20 20 DE 10 09 09 LORRIE HC 8 PH DI L AR 50 MA CY MG OF TA CY BL NT ET HI AN A 00 03 03 00 60 30 EA 11 BE Ac 59 -1 -[address] 96 SS ti 10 9- 6- 00 SI 92 ON ve 50 20 20 DE [address] 1 PH EP AR HE MA N CY A OF CY NT HI AN A AL 00 03 03 00 90 30 EA 11 MC Ac TX 78 -1 -[address] 96 KE ti AZ 11 9- 6- 00 SI 91 OH ve OL 07 20 20 DE E [...] 3- 2- 00 SI 95 EY ve TX 02 20 20 DE ED 20 09 09 OH NI 7 PH CH SO AR AE LO MA L NE CY S 4 OF MG CY NT DO HI SE AN PK A 60 02 03 01 20 10 EA 11 GA Ac 50 -2 -[address] 58 IN ti 51 3- 2- 00 SI 96 EY ve 30 20 20 DE 90 09 09 OH 1 PH CH AR AE MA L CY S OF CY NT HI AN A 60 02 03 00 20 10 EA 11 GA Ac 50 -2 -[address] 58 IN ti 51 3- 2- 00 SI 96 EY ve 30 20 20 DE 90 09 09 OH 1 PH CH AR AE MA L CY S OF CY NT HI AN A ME 00 02 02 00 60 30 EA 11 TORRES Ac TO 09 -1 -[address] 51 RV ti TX 30 7- 6- 00 SI 57 EY ve OL 73 20 20 DE OL 31 09 09 LORRIE 0 PH DI TA AR RT MA RA CY TE OF 50 CY NT MG HI AN TA A B AL 00 02 02 00 90 30 EA 11 MC Ac TX 78 -1 -[address] 51 KE ti AZ 11 7- 6- 00 SI 22 OH ve OL 07 20 20 DE E AM 90 09 09 JR 1 1 PH AR WI MG MA LL CY IA TA M BL OF F ET CY NT HI AN A TX 37 02 02 00 30 30 EA 11 JEANNINE Ac IL 00 -1 -[address] 51 SC ti OS 00 7- 6- 00 SI 23 H ve EC 45 20 20 DE AN 50 09 09 TO OT 2 PH NI C AR O 20 MA .6 CY MG OF CY TA NT BL HI ET AN A TR 60 02 02 00 [...] NT HI AN A 00 01 01 00 [...] BL CY ET NT HI AN A TX 37 11 01 01 30 30 EA [...] 02 90 30 EA 10 MC Ac TX 78 -1 -[address] 31 KE ti AZ 11 7- 0- 00 SI 41 OH ve OL 07 20 20 DE E AM 90 08 09 JR 1 1 PH AR WI MG MA LL CY IA TA M BL OF F ET CY NT HI AN A ME 00 11 01 01 60 30 EA 10 BE Ac TO 09 -1 -[address] 31 SS ti TX 30 7- 0- 00 SI 49 ON [...] CY EA NT M HI AN A TX 37 11 01 00 30 30 EA [...] 01 90 30 EA 10 MC Ac TX 78 -1 -[address] 31 KE ti AZ 11 7- 1- 00 SI 41 OH ve OL 07 20 20 DE E AM 90 08 09 JR 1 1 PH AR WI MG MA LL CY IA TA M BL OF F ET CY NT HI AN A ME 00 11 01 00 60 30 EA 10 BE Ac TO 09 -1 -[address] 31 SS ti TX 30 7- 1- 00 SI 49 ON [...] NO 23 7- 1- 00 SI 48 OH ve TX 75 20 20 DE E IL 96 08 09 JR 0 PH 10 AR WI MA LL MG CY IA M TA OF F BL CY ET NT HI AN A TR 60 12 [...] BL NT ET HI AN A 00 11 12 00 60 30 EA 10 MC Ac 59 -1 -[address] 31 KE ti 10 7- 8- 00 SI 55 OH ve 50 20 20 DE E 30 08 08 JR 1 PH AR WI MA LL CY IA M OF F CY NT HI AN A AL 00 11 12 00 90 30 EA 10 MC Ac TX 78 -1 -[address] 31 KE ti AZ 11 7- 4- 00 SI 41 OH ve OL 07 20 20 DE E [...] CY BL NT ET HI AN A TX 37 11 12 00 30 30 EA 10 JEANNINE Ac IL 00 -1 -[address] 29 SC ti OS 00 5- 4- 00 SI 21 H ve EC 45 20 20 DE AN 50 08 08 TO OT 2 PH NI C AR O 20 MA .6 CY MG OF CY TA NT BL HI ET AN A LI 00 11 11 00 30 30 EA 10 MC Ac SI 17 -1 -[address] 27 KE ti NO 23 4- 0- 00 SI 66 OH ve TX 75 20 20 DE E IL 96 [...] 00 12 4 EA 10 TORRES Ac TX 78 -1 -[address] 27 RV ti AZ 11 4- 0- 00 SI 70 EY ve OL 07 20 20 DE AM 90 08 08 LORRIE 1 1 PH DI AR MG MA CY TA BL OF ET CY NT HI AN A DI 00 09 11 [...] -1 -[address] 27 KE ti TX 30 4- 0- 00 SI 68 OH ve OL 73 20 20 DE E [...] 00 90 30 EA 99 No Ac TX 78 -1 -[address] 84 t [...] -1 -[address] 84 t ti TX 30 3- 3- 00 SI 92 Av ve OL 73 20 20 DE ai OL 31 08 08 la 0 PH bl TA AR e RT MA RA CY TE OF 50 CY NT MG HI AN TA A B LI 00 10 10 00 30 30 EA 99 No Ac SI 17 -1 -[address] 84 t ti NO 23 3- 3- 00 SI 91 Av ve TX 75 20 20 DE ai IL 96 [...] CY NT HI AN A TR 60 10 [...] NT HI AN A LI 00 06 09 03 30 30 EA 98 No Ac SI 17 -1 -[address] 35 t ti NO 23 2- 6- 00 SI 22 Av ve TX 75 20 20 DE ai IL 96 [...] 00 90 30 EA 99 No Ac TX 78 -1 -[address] 46 t ti AZ 11 3- 6- 00 SI 93 Av ve OL 07 20 20 DE ai AM 90 08 08 la 1 1 PH bl AR e MG MA CY TA BL OF ET CY NT HI AN A TX 37 07 09 01 30 30 EA [...] -1 -[address] 35 t ti TX 30 2- 6- 00 SI 19 Av ve OL 73 20 20 DE ai OL 31 08 08 la 0 PH bl TA AR e RT MA RA CY TE OF 50 CY NT MG HI AN TA A B TR 60 08 08 00 90 30 [...] -1 -[address] 35 t ti TX 30 2- 8- 00 SI 19 Av [...] 2- 8- 00 SI 22 Av ve TX 75 20 20 DE ai IL 96 [...] DE ai RA 20 08 08 la OH 6 PH bl DE AR e MA [...] 00 90 30 EA 99 No Ac TX 78 -1 -[address] 04 t [...] CY OF CY NT HI AN A TX 37 07 08 00 30 30 EA [...] 50 NT HI PO AN WD A TR 60 07 08 00 90 [...] 00 90 30 EA 98 No Ac TX 78 -1 -[address] 69 t ti AZ 11 2- 1- 00 SI 60 Av ve OL 07 20 20 DE ai AM 90 08 08 la 1 1 PH bl AR e MG MA CY TA BL OF ET CY NT HI AN A 58 07 08 00 [...] -1 -[address] 35 t ti TX 30 2- 7- 00 SI 19 Av [...] 2- 7- 00 SI 22 Av ve TX 75 20 20 DE ai IL 96 08 08 la 0 PH bl 10 AR e MA MG CY TA OF BL CY ET NT HI AN A AL 00 06 07 00 90 30 EA 98 No Ac TX 78 -1 -[address] 35 t [...] ET HI AN A ME 00 06 07 00 60 30 EA 98 No Ac TO 09 -1 -[address] 35 t ti TX 30 2- 3- 00 SI 19 Av [...] 2- 3- 00 SI 22 Av ve TX 75 20 20 DE ai IL 96 [...] CY NT HI AN A 57 09 06 05 [...] 4- 2- 00 SI 96 Av ve TX 75 20 20 DE ai IL 96 [...] 00 90 30 EA 97 No Ac TX 78 -1 -[address] 98 t [...] 4- 4- 00 SI 96 Av ve TX 75 20 20 DE ai IL 96 [...] 00 90 30 EA 97 No Ac TX 78 -1 -[address] 60 t [...] DE ai ZA 80 08 08 la TX 1 PH bl IN AR e E MA 10 CY MG OF CY TA NT BL HI ET AN A NA 00 02 04 01 60 30 EA 96 No Ac TX 09 -0 -[address] 62 t [...] BL NT ET HI AN A 53 03 04 00 90 30 EA 97 No Ac 48 -1 -[address] 17 t ti 90 1- 7- 00 SI 15 Av ve 49 20 20 DE ai 90 08 08 la 1 PH bl AR e MA CY OF CY NT HI AN A AL 00 03 04 00 90 30 EA 97 No Ac TX 78 -1 -[address] 17 t [...] 5- 7- 00 SI 36 Av ve TX 75 20 20 DE ai IL 96 07 08 la 0 PH bl 10 AR e MA MG CY TA OF BL CY ET NT HI AN A 57 09 04 03 60 30 EA 94 No Ac 66 -0 -[address] 61 t ti 40 4- 7- 00 SI 45 Av ve 47 20 20 DE ai 71 07 08 la 8 PH bl AR e MA CY OF CY NT HI AN A 00 03 04 00 [...] NT ET HI AN A 50 02 03 00 10 25 EA 96 No Ac 11 -0 -[address] 62 t ti 10 2- 6- 00 SI 45 Av ve 43 20 20 0 DE ai 00 08 08 la 1 PH bl AR e MA CY OF CY NT HI AN A AL 00 02 03 00 90 30 EA 96 No Ac TX 78 -1 -[address] 75 t ti AZ 11 1- 6- 00 SI 45 Av ve OL 07 20 20 DE ai AM 90 08 08 la 1 1 PH bl AR e MG MA CY TA BL OF ET CY NT HI AN A NA 00 02 03 00 60 30 EA 96 No Ac TX 09 -0 -[address] 62 t [...] 5- 6- 00 SI 36 Av ve TX 75 20 20 DE ai IL 96 [...] 00 90 30 EA 96 No Ac TX 78 -1 -[address] 31 t [...] BL CY ET NT HI AN A AZ 00 01 [...] NT ET HI AN A LI 00 09 03 03 30 30 EA 94 No Ac SI 17 -0 -[address] 64 t ti NO 23 5- 4- 00 SI 36 Av ve TX 75 20 20 DE ai IL 96 [...] OF CY NT HI AN A 53 01 03 00 90 30 EA 96 No Ac 48 -1 -[address] 31 t ti 90 1- 4- 00 SI 15 Av ve 49 20 20 DE ai 91 08 08 la 0 PH bl AR e MA CY OF CY NT HI AN A Procedures Procedure DOS Code Location Performer Comment RADEX 52196 [facility] SALG[facility] SPINE 7 [place] LUMBOSACR ORTHOPAED AL 2/3 IC VIEWS CULTURE 32740 COMBINED COMBINED BACTERIAL 7 PHYSICIAN PHYSICIAN S LA S LA QUANTTATI VE COLONY COUNT URINE URNLS DIP 49903 [place] BESSON 7 [facility] STICK/TAB INTERNAL LET RGNT MED NON-AUTO W/O MICRSCP DRUG TEST 50990 [facility] PRSMV 7 [facility] QUAL DIR INC INC OPTICAL OBS PER DAY DRUG 86228 [facility] SCREENING 7 [facility] OPIOIDS INC INC & OPIATE ANALOGS 5/MORE DRUG 49329 [facility] SCREENING 7 [facility] INC INC BENZODIAZ EPINES 1-12 DRUG 23435 [facility] SCREENING 7 [facility] INC INC CANNABINO IDS NATURAL NJX 61387 ANITA BUX DX/THER 7 MD ROSA, SBST PSC INTRLMNR LMBR/SAC W/IMG GDN COLLECTIO 40517 [facility] N VENOUS 7 [facility] BLOOD INC INC VENIPUNCT URE BASIC 03767 [facility] METABOLIC 7 [facility] PANEL [place] T[place] [address] ANITA DUFF JOINT 7 MD ROSA, ARTHRGRP PSC Y&/ANES/S TEROID W/IMCHELLE UNCLASSIF J3490 [facility] IED DRUGS 7 [facility] INC INC UNCLASSIF J3490 [facility] IED DRUGS 7 [facility] INC INC MYOCARDIA 31128 [facility] L SPECT 7 [facility] MULTIPLE INC INC STUDIES ECHO 71394 [facility] TTHRC R-T 7 [facility] 2D INC INC W/WOM-MOD E COMPL SPEC&COLR D DUPLEX 74809 [facility] SCAN 7 [facility] EXTRACRAN INC INC IAL ART COMPL BI STUDY CV STRS 53757 [facility]ALL[facility] TST 7 [facility] XERS&/OR INC INC RX CONT ECG TRCG ONLY CV STRS 12623 Dustin COURTNEY TST 7 PHYSICIAN XERS&/OR S GROUP RX CONT ECG W/O I&R COLLECTIO 90717 [facility] N VENOUS 7 [facility] BLOOD INC INC VENIPUNCT URE DRUG TEST 28636 [facility] PRSMV 7 [facility] QUAL DIR INC INC OPTICAL OBS PER DAY LIPID 53370 [facility] PANEL 7 [facility] INC INC ECG 00744 [facility] ROUTINE 7 [facility] ECG INC INC W/LEAST 12 LDS TRCG ONLY W/O I&R CREATINE 18401 [facility] KINASE 6 [facility] [place] [address] [facility] TROPONIN 6 [facility] QUANTITAT INC INC ANUPAMA SMR PRIM 17347 [facility] SRC 6 [facility] GRAM/GIEM INC INC SA STAIN BCT FUNGI/ADAMA L RADIOLOGI 54595 [facility] C EXAM 6 [facility] CHEST 2 INC INC VIEWS FRONTAL&L ATERAL CREATINE 06626 [facility] KINASE MB 6 [facility] FRACTION INC INC ONLY HOSPITAL G0378 [facility] W[facility] OBSERVATI 6 [facility] ON INC INC SERVICE PER HOUR COLLECTIO 28684 [facility] N VENOUS 6 [facility] BLOOD INC INC VENIPUNCT URE BLOOD 65213 [facility] COUNT 6 [facility] COMPLETE INC INC AUTO&AUTO DIFRNTL WBC CUL BACT 80510 [facility] XCPT 6 [facility] URINE INC INC BLOOD/STO OL AEROBIC ISOL BASIC 09278 [facility] METABOLIC 6 [facility] PANEL INC INC CALCIUM TOTAL THROMBOPL 99096 [facility] ASTIN 6 [facility] TIME INC INC PARTIAL PLASMA/WH OLE BLOOD CULTURE 93085 [facility] BACTERIAL 6 [facility] BLOOD INC INC AEROBIC W/ID ISOLATES RADIOLOGI 55015 GEM SHIELDS C EXAM 6 MEDICAL CHEST 2 IMAGING VIEWS ASS FRONTAL&L ATERAL HOSPITAL G0378 [facility] OBSERVATI 6 [facility] ON INC INC SERVICE PER HOUR COLLECTIO 87110 [facility] N VENOUS 6 [facility] BLOOD INC INC VENIPUNCT URE COMPREHEN 84333 [facility] SIVE 6 [facility] METABOLIC INC INC PANEL CREATINE 35861 [facility] W[facility] KINASE MB 6 [facility] [place] [address] [facility] LACTATE 6 [facility] INC INC PRESSURIZ 51555 [facility] ED/NONPRE 6 [facility] SSURIZED INC INC INHALATIO N TREATMENT THERAPEUT 79571 [facility] IC 6 [facility] INJECTION INC INC IV PUSH EACH NEW DRUG NATRIURET 12408 [facility] IC 6 [facility] PEPTIDE INC INC BLOOD 50718 [facility] COUNT 6 [facility] COMPLETE INC INC AUTO&[place] [address] [facility] W[facility] TROPONIN 6 [facility] QUANTITAT INC INC ANUPAMA ECG 44351 [facility] LAL ROUTINE 6 [facility] W/LEAST P 12 LDS I&R ONLY PROTHROMB 84887 [facility] WALLACE IN TIME 6 [facility] INC INC THER 75494 M[facility] PROPH/DX 6 [facility] NJX IV INC INC PUSH SINGLE/1S T SBST/DRUG ECG 67508 [facility] ROUTINE 6 [facility] ECG INC INC W/LEAST 12 LDS TRCG ONLY W/O I&R CREATINE 06250 [facility] KINASE 6 [facility] TOTAL INC INC CULTURE 14491 COMBINED COMBINED BACTERIAL 6 PHYSICIAN PHYSICIAN S LA S LA QUANTTATI VE COLONY COUNT URINE BLOOD 33591 [place] MANDUJANO MIS OCCULT 6 [facility] PEROXIDAS INTERNAL E ACTV MED QUAL FECES 1 DETER URNLS DIP 31962 [place] MANDUJANO MIS 6 [facility] STICK/TAB INTERNAL LET RGNT MED NON-AUTO W/O MICRSCP CYTP C/V 11705 [facility] AUTO THIN 6 [facility] ER JR DARIUSZ LYR PREPJ SCR MNL RESCR PHYS SCREENING G0202 [place] [address] MEDICAL MAMMOGRAP IMAGING HY NIESHA ASS INCL CAD WHEN PERFORMD DRUG TST G0477 COMBINED NATHANIEL PRESUMP;C 6 PHYSICIAN LEO PBL BEING [place] [address] [facility] HEAD/BRAI 6 [facility] N W/O INC INC CONTRAST MATERIAL URNLS DIP 85777 [facility] 6 [facility] STICK/TAB INC INC LET REAGENT AUTO MICROSCOP Y REMOVAL 25387 [facility] IMPACTED 6 PHYSICIAN TU CERUMEN S GROUP INSTRUMEN TATION UNILAT ECG RTN [id number] COMBINED COMBINED ECG W/12 6 PHYSICIAN PHYSICIAN LEADS SCR S LA S LA INIT PREVNTV PE W/I&R DRUG TST G0477 COMBINED COMBINED PRESUMP;C 6 PHYSICIAN PHYSICIAN PBL BEING S LA S LA READ DC OPT OBV ONLY NEEDLE 64264 [facility] EM[facility] EA 6 N EXTREMTY NEUROLOGY W/PARASPI NL AREA COMPLETE NERVE 88772 [facility] CALLY CONDUCTIO 6 N N STUDIES NEUROLOGY 9-10 STUDIES ANES 64643 [facility] UPPER GI 6 [place] SUKH ENDOSCOPY ANESTHESI PROXIMAL A TO DUODENUM EGD 25247 [facility]OR[facility] TOSHIA THO TRANSORAL 6 L SURGIAL BIOPSY SINGLE/[place] [address] CHIPPS VINCENT SURG 6 [facility]OMAS PATHOLOGY DUBILIER GROSS&[place] [address] [facility] LILIAN GAMMAGLOB 5 KELTON KELTON ULIN IGA HOLDINGS HOLDINGS IGD IGG IGM EACH IMMUNOASS 48191 [facility] LILIAN AY 5 KEL[facility] KELTON ANALYTE HOLDINGS HOLDINGS QUAL/SEMI QUAL MULTIPLE STEP ECG 52676 [facility] SERA ROUTINE 5 EMERGENCY GREG ECG PHYS PSC W/LEAST 12 LDS I&R ONLY RADIOLOGI 85851 [facility] MONTANO C 5 RADIOLOGY [facility] ON CHEST SINGLE VIEW FRONTAL COMPREHEN 57401 [facility] SIVE 5 [facility] METABOLIC INC INC PANEL RADEX 53880 [facility] FOOT 5 [facility] COMPLETE INC INC MINIMUM 3 VIEWS BLOOD 30739 [facility] COUNT 5 [facility] COMPLETE INC INC AUTO&AUTO DIFRNTL WBC RADIOLOGI 42474 [facility] C 5 [facility] EXAMINATI INC INC ON TIBIA & FIBULA 2 VIEWS OPHTH 69872 [facility] MEDICAL 5 ANG ANG XM&EVAL COMPRHNSV ESTAB PT 1/> HOSPITAL [address] [place] [facility] DISCHARGE [address] [facility] DAY INTERNAL MANAGEMEN MED T 30 MIN/< INITIAL 96208 [place] [facility] OBSERVATI [address] [facility] ON INTERNAL CARE/DAY MED 30 MINUTES ECG 67575 [facility] LAL ROUTINE 5 [facility] W/LEAST P 12 LDS I&[place] [address] [facility] ABDOMEN & 5 MEDICAL FAHEEM PELVIS IMAGING W/O ASS CONTRAST MATERIAL RADIOLOGI 36670 [place] ALL C EXAM 5 MEDICAL CHEST 2 IMAGING VIEWS ASS FRONTAL&L ATERAL PRESSURIZ 69832 [facility] ED/NONPRE 5 [facility] SSURIZED INC INC INHALATIO N TREATMENT ANES 56611 [facility] OVIDIO TRANSURET 5 ANESTH HRAL OF THE W/URETHRO BLUE CYSTOSCOP Y NOS CYSTO 30666 [facility] CALIBRATI 5 [facility] ON DILAT INC INC URTL STRIX/ANN NOS HOSPITAL 94105 [place] [facility] [address] [facility] DAY INTERNAL MANAGEMEN MED T 30 MIN/< INITIAL 96802 [facility] INPATIENT 5 PHYSICIAN CAM CONSULT S GROUP NEW/ESTAB PT 55 MIN INITIAL 72246 [facility] [address] [facility] CARE/DAY INTERNAL [address] [place] [address] [place] [facility] & 5 MEDICAL FAHEEM PELVIS IMAGING W/O ASS CONTRAST MATERIAL ECHO 59223 [facility] ROM 2D MEDICAL W/WOM-MOD G E COMPL SPEC&COLR D CV STRS 86657 [facility] TST 5 NE HEALTH ROM XERS&/OR MEDICAL RX CONT G ECG I&R ONLY ECHO 94650 [facility] TTHRC R-T [address] [place] [address] 2D W/WOM-MOD E COMPL SPEC&COLR D CV STRS 11513 [facility] TST [address] [place] [address] XERS&/OR RX CONT ECG TRCG ONLY MRI 94075 [facility] ABDOMEN 5 MEDICAL LA W/O IMAGING CONTRAST ASS MATERIAL BLOOD 16213 [facility] COUNT 5 [facility] COMPLETE INC INC AUTO&AUTO DIFRNTL WBC COLLECTIO 49699 [facility] N VENOUS 5 [facility] BLOOD INC INC VENIPUNCT URE COMPREHEN 85374 [facility] SIVE 5 [facility] [place] [address] [facility] AMYLASE 5 [place] [address] [facility] LIPASE 5 [facility] INC INC MRI 96189 [facility] LO[facility] TRA SPINAL 5 [place] CANAL ORTHOPAED LUMBAR ICS [facility] W/O CONTRAST MATERIAL RADIOLOGI 55502 [facility] BECKER C EXAM 5 MEDICAL LA CHEST 2 IMAGING VIEWS ASS FRONTAL&L ATERAL APPL 53860 [facility] MODALITY 5 [facility] 1/> AREAS INC INC ELEC STIMJ UNATTENDE D APPLICATI 67645 [facility] ON 5 [facility]AL[facility] INC 1/> AREAS HOT/COLD PACKS APPL 24890 [facility]/> AREAS INC INC ULTRASOUN D EA 15 MIN APPL 80009 [facility]/> AREAS INC INC ULTRASOUN D EA 15 MIN APPL 29196 [facility]/> AREAS INC INC ULTRASOUN D EA 15 MIN APPLICATI 60527 [facility] ON 5 [facility] INC 1/> AREAS HOT/COLD PACKS APPL 02551 [facility]/> AREAS INC INC ELEC STIMJ UNATTENDE D APPL 52248 [facility] 1[facility] AREAS INC INC ELEC STIMJ UNATTENDE D APPLICATI 46426 [facility] ON 5 [facility] MODALITY INC INC 1/> AREAS HOT/COLD PACKS APPL 07044 [facility]/> AREAS INC INC ULTRASOUN D EA 15 MIN LOCM Q9967 [facility] [phone] [facility] MG/ML INC [place] [address] [facility] ABD[facility] & 5 MEDICAL LA PELVIS IMAGING W/CONTRAS ASS T MATERIAL APPL 96929 [facility]/> AREAS INC INC ELEC STIMJ UNATTENDE D COLLECTIO 86482 [facility] N VENOUS 5 [facility] [place] [address] [facility] UREA 5 [facility] NITROGEN INC INC QUANTITAT ANUPAMA APPL 62699 [facility] 5 [facility]/> AREAS INC INC ULTRASOUN D EA 15 MIN APPLICATI 82430 [facility] ON 5 [facility] MODALITY INC INC 1/> AREAS HOT/COLD PACKS CREATININ 03091 [facility] E BLOOD 5 [facility] INC INC APPLICATI 63211 [facility] ON 5 [facility] MODALITY INC INC 1/> AREAS HOT/COLD PACKS APPL 41052 [facility] 5 [facility] 1/> AREAS INC INC ULTRASOUN D EA 15 MIN APPL 72694 [facility]ITY 5 [facility] 1/> AREAS INC INC ELEC STIMJ UNATTENDE D PHYSICAL 85441 [facility] THERAPY 5 [facility] EVALUATIO INC INC N COMPUTER- 857[address] [facility] AIDED 5 [facility] DETECTION IMAGING ASS SCREENING MAMMOGRAP HY SCREENING [id number] [place] EUGENIO 5 MEDICAL LA MAMMOGRAP IMAGING HY NIESHA ASS INCL CAD WHEN PERFORMD RADEX 03320 [place] [facility] SPINE 5 MEDICAL LA LUMBOSACR IMAGING AL ASS MINIMUM 4 VIEWS TYMPANOME 42980 JAI ARRIAGA TRY 4 TU RAIMUNDO DISTORT 00201 JAI ARRIAGA PRODUCT 4 TU RAIMUNDO EVOKED OTOACOUST IC EMISNS LIMITD COMPRE 31930 JAI ARRIAGA AUDIOMETR 4 TU RAIMUNDO Y THRESHOLD EVAL SP RECOGNIJ DEBRIDEME 29097 JAI VERGARA NT 4 MASTOIDEC LILI CAVITY SIMPLE O2 CONC 1 E1390 [facility] DEL PORT 4 DISCOUNT DISCOUNT 85%/>02 [facility] FLW RATE PORTABLE K0738 [facility] GASEOUS 4 DISCOUNT DISCOUNT O2 [facility]; HOME COMPRESSO R PORTABLE K0738 [facility] GASEOUS 4 DISCOUNT DISCOUNT O2 [facility]; HOME COMPRESSO R O2 CONC 1 E1390 [facility] DEL PORT 4 DISCOUNT DISCOUNT 85%/>02 MEDICAL MEDICAL CONC AT [facility] FLW RATE ECG 29017 [facility] EMERGENCY ROUTINE 4 HEART SOLEDAD ECG SPECIALIS W/LEAST TS, 12 LDS I&R ONLY MONITOR 14443 WYATT Espinosa ID& 4 LATERALIZ ATION SEIZURE FOCUS EEG ELECTROEN 74086 WYATT Espinosa CEPHALOGR 4 AM W/REC AWAKE&ASL EEP LEVEL III 17176 [facility] SURG 4 SHIRLEY & THOMAS PATHOLOGY [facility] GROSS&HENRRY ROSCOPIC EXAM DECALCIFI 56275 [facility]ENT CATION 4 SHIRLEY & THOMAS PROCEDURE DUBILI SBSQ 92206 [facility] 4 YUR YUR CARE/DAY 35 MINUTES ARTL 32263 KARLY BRANDT CATHJ/CAN 4 ANAHI ANAHI NULJ MNTR/WEBER SFUSION SPX PRQ TEAEC 83383 WILBERT VIRK W/PATCH 4 CARDIOTHO ROHAN GRF RACIC CAROTID SURGI VERTB SUBCLAV NECK INC ANESTHESI 61253 SUAMYAKAYLI BRANDT A MAJOR 4 ANAHI ANAHI VESSELS NECK NOS RADIOLOGI 68766 DUSTY MONTANO C EXAM 4 SHANNON SHANNON CHEST 2 VIEWS FRONTAL&L ATERAL ECG 33256 [place] ARMENDARIZ ROUTINE 4 HEART SOLEDAD ECG SPECIALIS W/LEAST TS, 12 LDS I&[place] [address] MELODY DIGGS OLIVER ADA ANGIOGRAP 4 HY NECK W/CONTRAS T/NONCONT RAST PRQ 95025 ARMENDARIZ ARMENDARIZ TRLUML 4 SOLEDAD SOLEDAD CORONARY STENT W/ANGIO ONE ART/BRNCH CATH PLMT 85954 ARMENDARIZ ARMENDARIZ L HRT & 4 SOLEDAD SOLEDAD ARTS W/NJX & ANGIO IMG S&I RADIOLOGI 86674 CHARIS CHARIS C EXAM 4 ANAHI ANAHI KNEE COMPLETE 4/MORE VIEWS DUPLEX 25138 MOOSE VIRK SCAN 4 ROHAN ROHAN EXTRACRAN IAL ART COMPL BI STUDY INJECTION J3301 [place] LATTERMAN 4 MEDICAL N CHR TRIAMCINO SERV LONE FOUNDATIO ACETONIDE N NOS 10 MG ARTHROCEN 86441 [place] [facility] TESIS 4 MEDICAL N CHR ASPIR&/IN SERV J MAJOR FOUNDATIO JT/BURSA N W/O US ARTHROCEN 37967 [place] [facility] TESIS 4 MEDICAL N CHR ASPIR&/IN SERV J INTERM FOUNDATIO JT/BURS N W/O US RADEX 35945 [facility] ANKLE 4 Y Y COMPLETE [facility] MINIMUM 3 VIEWS DRUG SCR G0434 ADRIEL HAM ADRIEL HAM NOT 4 CHROMATOG RAPHIC; ANY NUMBER PT ENC COMPREHEN 79859 [facility] SIVE 3 [facility] METABOLIC INC INC PANEL LIPID 81990 [facility] PANEL 3 [facility] INC INC SCREENING G0202 [facility] 3 [facility] MAMMOGRAP INC INC HY NIESHA INCL CAD WHEN PERFORMD COMPUTER- 79756 [facility] AIDED 3 [facility] DETECTION INC INC SCREENING MAMMOGRAP HY CYTP C/V 91534 PICKLESIM PICKLESIM AUTO THIN 3 ER JR DARIUSZ ER JR DARIUSZ LYR PREPJ SCR MNL RESCR PHYS BLOOD 37539 ELIZABETH HUMPHREYENCE OCCULT 3 AUDRA AUDRA PEROXIDAS E ACTV QUAL FECES 1 DETER URNLS DIP 39171 ELIZABETH HUMPHREYENCE 3 AUDRA AUDRA STICK/TAB LET RGNT NON-AUTO W/O MICRSCP DUPLEX 41465 [facility] SCAN 3 [facility] EXTRACRAN INC INC IAL ART COMPL BI STUDY MYOCARDIA 92697 EUGENIO EUGENIO L SPECT 3 LA LA SINGLE STUDY AT REST OR STRESS CV STRS 24415 [facility] TST 3 PHYSICIAN PHYSICIAN XERS&/OR S GROUP S GROUP RX CONT ECG W/O I&R RADIOLOGI 18935 EUGENIO EUGENIO C 3 LA LA EXAMINATI ON CHEST SINGLE VIEW FRONTAL ANES 46400 [facility] LOWER 3 ANESTH INTESTINE OF THE BLUE ENDOSCOPY DISTAL DUODENUM COLONOSCO 22883 [facility] PY FLX DX 3 [facility] W/COLLJ INC INC SPEC WHEN [facility] 34525 [facility]GE 3 ANN DAY MANAGEMEN T 30 MIN/< SBSQ 58307 [facility] 3 JR SOLEDAD WALDRON SOLEDAD CARE/DAY 25 MINUTES INITIAL 09064 SCHULSTAD SCHULSTAD INPATIENT 3 LUDWIN LUDWIN CONSULT NEW/ESTAB PT 40 MIN SBSQ 86307 [facility] 3 JR SOLEDAD ROWE CARE/DAY 25 MINUTES SBSQ 48774 [facility] 3 JR SOLEDAD ROWE CARE/[place] [address] [place] [address] EUGENIO EUGENIO ABDOMEN & 3 LA LA PELVIS W/CONTRAS T MATERIAL INITIAL 56752 [facility] 3 JR SOLEDAD ROWE CARE/DAY 50 MINUTES LUMB L0627 DENNIS DENNIS ORTHOSIS 2 HOME HOME SAGIT MEDICAL MEDICAL CNTRL EQUIPME EQUIPME RIGID A&P PANEL PREFAB RADEX 73685 [facility] SPINE 2 MEDICAL LA LUMBOSACR IMAGING AL ASS MINIMUM 4 VIEWS RADIOLOGI 86333 [facility] C EXAM 2 MEDICAL LA CHEST 2 IMAGING VIEWS ASS FRONTAL&L ATERAL RADIOLOGI 74160 [facility] C 2 [facility] EXAMINATI INC INC ON KNEE 3 VIEWS URNLS DIP 67101 MCKEMIE MCKEMIE 2 JR SOLEDAD JR SOLEDAD STICK/TAB LET RGNT NON-AUTO W/O MICRSCP RADEX 39539 [facility] UPPER GI 2 [facility] W/WO INC INC GLUCAGON/ DEL[place] [address] [facility] EUGENIO TRACT 2 MEDICAL LA UPPER IMAGING W/WO [place] DELAY[place] W/[place] [address] [facility]IO ABDOMINAL 2 MEDICAL LA REAL IMAGING TIME ASS W/IMAGE DOCUMENTA TION DUPLEX 90375 [facility] SCAN 2 [facility] EXTRACRAN INC INC IAL ART COMPL BI STUDY SCREENING G0202 [facility] 2 [facility] MAMMOGRAP INC INC HY NIESHA INCL CAD WHEN PERFORMD - 11550 [facility] AIDED 2 [facility] DETECTION INC INC SCREENING MAMMOGRAP HY LIPID 08957 [facility] W[facility] PANEL 2 [facility] INC INC BLOOD 11143 [facility] COUNT 2 [facility] COMPLETE INC INC AUTO&AUTO DIFRNTL WBC COMPREHEN 44996 [facility] SIVE 2 [facility] METABOLIC INC INC PANEL PHYSICAL 44081 [facility] THERAPY 1 [facility] EVALUATIO INC INC N DUPLEX 35996 ALEVISM IMAM MOH SCAN 1 CARDIOTHO EXTRACRAN RACIC IAL [place] [address] CHIPPS [facility] SURG 1 SHIRLEY & ALEXUS PATHOLOGY DUBILIER GROSS&[place] [address] [facility] INFUSION 1 [facility] THERAPY INC INC PROPHYLAX IS/DX EA HOUR COLSC FLX 34521 Ten ALANIS 1 ANNABELLE MASCORRO W/REMOVAL PSC LESION BY HOT BX FORCEPS ENDOSCOPI 4542 [facility] WUKELY Caal 1 [facility] POLYPECTO INC INC MY OF LARGE INTESTINE SCREENING G0202 [facility] BECKER 1 MEDICAL LA MAMMOGRAP IMAGING HY NIESHA ASS INCL CAD WHEN PERFORMD COMPUTER- 27925 [facility] BECKER AIDED 1 MEDICAL LA DETECTION IMAGING ASS SCREENING MAMMOGRAP HY BLOOD 50766 [facility] COUNT 0 [facility] COMPLETE INC INC AUTO&AUTO DIFRNTL WBC BASIC 67495 [facility] METABOLIC 0 [facility] PANEL INC INC CALCIUM TOTAL LEVEL III 15446 CHIPPS VINCENT SURG 0 SHIRLEY & THOMAS PATHOLOGY DUBILI GROSS&HENRRY ROSCOPIC EXAM DECALCIFI 77542 [facility]IPPS VINCENT CATION 0 SHIRLEY & THOMAS PROCEDURE DUBILIER ARTL 18316 [facility] BROSTER CATHJ/CAN 0 [place] THO NULJ ANESTHESI MNTR/WEBER A SFUSION SPX PRQ ANESTHESI 70879 [facility] BEAN CHR A MAJOR 0 [place] VESSELS ANESTHESI NECK NOS A EEG 37898 FARZANA CARD JOSS NONINTRAC 0 STEPHIE CABRERA RANIAL PSC SURGERY TEAEC 14238 ALEVISM IMAM MOH W/PATCH 0 CARDIOTHO GRF RACIC CAROTID SURGI VERTB SUBCLAV NECK INC ECG 08129 [facility] ROUTINE 0 ECG CARDIOLOG W/LEAST Y CONSULT 12 LDS I&R ONLY ANGIOGRAP 51860 [facility] HY 0 [facility]VISM [facility] HOSP CEREBRAL BILATERAL RS&I ANGIOGRAP 44684 [facility] HY 0 [facility]VIS[facility] HOSP CERVICAL BILATERAL RS&I SLCTV 21840 [facility] CATHJ 1ST 0 A[facility]VISM ALEVISM 2ND ORD HOSP HOSP THRC/BRCH /CPHLC BRNCH SLCTV 06270 [facility] CATHJ EA 0 ALEVISM ALEVISM 1ST ORD HOSP HOSP THRC/BRCH /CPHLC BRNCH ARTERIOGR 8841 [facility] APHY OF 0 [facility]M [facility] CEREBRAL HOSP HOSP ARTERIES CREATININ 42808 [facility] E BLOOD 0 [facility] HOSP PROTHROMB 71015 [facility] IN TIME 0 [facility] HOSP COLLECTIO 54881 [facility] N VENOUS 0 ALEVISM ALEVISM BLOOD HOSP HOSP [facility] 07397 [facility] DIS[facility]GE [address] [facility] DAY INTERNAL MANAGEMEN MED T 30 MIN/< SBSQ 25675 [facility] 0 [facility] CARE/DAY INTERNAL 25 MED MINUTES INITIAL 95971 [facility] [address] [facility] CARE/DAY INTERNAL 50 MED MINUTES RADIOLOGI 45482 [place] C EXAM 0 MEDICAL MARK CHEST 2 IMAGING VIEWS ASS FRONTAL&L ATERAL RADIOLOGI 68891 [place] C EXAM 0 MEDICAL MARK CHEST 2 IMAGING VIEWS ASS FRONTAL&[place]TERAL [place] ANY 85780 TAO C EUGENIO JT LOWER 0 EUGENIO LA EXTREM W/O CONTRAST MATRL DUPLEX 84548 [place] EUGENIO SCAN 0 MEDICAL LA EXTRACRAN IMAGING IAL ART ASS COMPL BI STUDY COMPREHEN 22975 [facility] SIVE 0 [facility] [place] [address] [facility] W[facility] THYROID 0 [facility] STIMULATI INC INC NG HORMONE TSH LIPID 98156 [facility] W[facility] PANEL 0 [facility] INC INC BLOOD 80590 [facility] COUNT 0 [facility] COMPLETE INC INC AUTO&AUTO DIFRNTL WBC CREATINE 42536 [facility] KINASE 0 [facility] TOTAL INC INC FLUORESCE 96524 [facility] NT 0 [facility] NONNFCT INC INC AGT ANTB TITER EA ANTIBODY SCREENING 84337 [place] EUGENIO, 0 MEDICAL TAO MAMMOGRAP IMAGING HY ASSOCIATE BILATERAL S COMPUTER- 28099 GEM BECKER, AIDED 0 MEDICAL TAO DETECTION IMAGING ASSOCIATE SCREENING S MAMMOGRAP HY CREATININ 75829 [facility] E BLOOD 0 [place] [address] GEM BECKER ANGIOGRAP 0 MEDICAL TAO HY NECK IMAGING W/CONTRAS ASSOCIATE T/[place] [address] [facility] UREA 0 [facility] NITROGEN INC INC QUANTITAT ANUPAMA ALPHA-1-A 72668 [facility] NTITRYPSI 0 [facility] N INC INC PHENOTYPE ANTIBODY 40995 [facility] ASPERGILL 0 [facility] US INC INC ALPHA-1-A 65291 [facility] NTITRYPSI 0 [facility] N TOTAL INC INC ANTINUCLE 44001 [facility] AR 0 [facility] ANTIBODIE INC INC S JEAN-PIERRE ANTIBODY 32294 [facility] IDENTIFIC 0 [facility] ATION INC INC LEUKOCYTE ANTIBODIE S ALLERGEN 56585 [facility] SPECIFIC 0 [facility] IGG INC INC NORMA/[place] [address] [facility] THYROID 0 [facility] STIMULAT[place] [address] [facility] GAMMAGLOB 0 [facility] ULIN IGE INC INC COMPLEMEN 76686 [facility] T 0 [facility] FIXATION INC INC TESTS EACH ANTIGEN DUPLEX 03974 GEM BECKER, SCAN 0 MEDICAL TAO EXTRACRAN IMAGING IAL ART ASSOCIATE COMPL BI S STUDY C-REACTIV 38881 [facility] E PROTEIN 0 [facility] HIGH INC INC SENSITIVI TY IMMUNODIF 77981 [facility] FUSION 0 [facility] GEL INC INC DIFFUSION QUAL EA AG/ANTBDY CULTURE 70824 [facility] FNGI 9 [facility] MOLD/YEAS INC INC [place] [address] PATHOLOGY PATHOLOGY SURG 9 & & PATHOLOGY CYTOLOGY CYTOLOGY LAB LAB GROSS&HENRRY ROSCOPIC EXAM CYTP 03479 PATHOLOGY PATHOLOGY SLCTV 9 & & CELL CYTOLOGY CYTOLOGY ENHANCEME LAB LAB NT INTERPJ XCPT C/V IV [address]1992 [facility] INFUSION 9 [facility] THERAPY INC INC PROPHYLAX IS/DX EA HOUR CUL BACT 01457 [facility] XCPT 9 [facility] URINE INC INC BLOOD/STO OL AEROBIC ISOL CULTURE 96142 [facility] TUBERCLE/ 9 [facility] OTH INC INC ACID-FAST BACILLI ANY ISOL [facility] 32286 M[facility]ISON W/BRNCL 9 [facility] [place] [address] [facility] INFUSION 9 [facility] THERAPY/P INC INC ROPHYLAXI S /DX 1ST TO 1 HR SMR PRIM 14426 [facility] SRC 9 [facility] GRAM/GIEM INC INC SA STAIN BCT FUNGI/ADAMA L [facility] 45059 [facility] FLOWERS INCL 9 CARDIOTHO SOLEDAD FLUOR RACIC GDNCE DX SURGI W/CELL WASHG SPX CLOSED 3324 [facility] BIOPSY OF 9 [facility] [place] [address] M[facility] WUON UREA 9 [facility] NITROGEN INC INC QUANTITAT ANUPAMA DETER 25126 [facility] MALDISTRI 9 [facility] BJ OF INC INC INSPIRED GAS N WSHOT CURVE DETER 32042 [facility] DAY AIRWY 9 [facility] CLOSING [facility] SHRUTHI Moran VOL 1 PROF SERV BRTH TSTS BRNCDILAT 99601 [facility] DAY RSPSE 9 [facility] SPMTRY [facility] PRE&POST- PROF SERV BRNCDILAT ADMN FUNCTIONA 60330 [facility] Piña 9 [facility] RESIDUAL [facility] CAPACITY PROF SERV OR RESIDUAL VOLUME CT THORAX 88057 [facility] 9 [facility] W/CONTRAS INC INC T MATERIAL 3D 57341 [facility] RENDERING 9 [facility] INC INC W/INTERP& POSTPROC DIFF WORK STATION CREATININ 05813 [facility] E BLOOD 9 [facility] INC INC CREATINE 68503 [facility] KINASE 9 [facility] TOTAL INC INC LIPID 53045 [facility] PANEL 9 [facility] INC INC COMPREHEN 33892 [facility] W[facility] SIVE 9 [facility] METABOLIC INC INC PANEL RADIOLOGI 99230 [facility] BY[facility]NE EXAM 9 MEDICAL TAO KNEE IMAGING COMPLETE ASSOCIATE 4/MORE S VIEWS RADEX 80049 [facility] BECKER, ANKLE 9 MEDICAL TAO COMPLETE IMAGING MINIMUM 3 ASSOCIATE VIEWS S RADIOLOGI 33868 [facility] C 9 [facility] EXAMINATI INC INC ON KNEE 3 VIEWS RADIOLOGI 20223 [facility] C 9 [facility] EXAMINATI INC INC ON KNEE 1/2 VIEWS RADIOLOGI 43276 [facility] C EXAM 9 [facility] BOTH INC INC KNEES STANDING ANTEROPOS T RADIOLOGI 26595 Ten ALEXANDRA EXAM 9 MEDICAL TAO CHEST 2 IMAGING VIEWS ASSOCIATE FRONTAL&L S ATERAL RADIOLOGI 75350 [facility] C EXAM 9 [facility] CHEST 2 INC INC VIEWS FRONTAL&L ATERAL IAADI 63149 [facility] INFFLUENZ 9 [facility] A A VIRUS INC INC IAADI 13365 [facility] W[facility] INFLUENZA 9 [facility] B VIRUS INC INC COMPUTER- 35286 [place], AIDED 9 MEDICAL HARMAN P DETECTION IMAGING ASSOCIATE SCREENING S MAMMOGRAP HY SCREENING 74832 [place]ORE 9 MEDICAL HARMAN P MAMMOGRAP IMAGING HY ASSOCIATE BILATERAL S CT PELVIS 28745 [facility] [place] [facility] LORE, 8 MEDICAL HARMAN P W/CONTRAS IMAGING T ASSOCIATE MATERIAL S 3D 58236 [facility] RENDERING 8 [facility] INC INC W/INTERP& [place] [address] [facility] TORREZ, ABDOMEN 8 MEDICAL HARMAN P W/CONTRAS IMAG[place] [address] [facility] UREA 8 [facility] NITROGEN INC INC QUANTITAT ANUPAMA CREATININ 47149 [facility] Tovar BLOOD 8 [facility] INC INC GASTRIC 05411 KENTBARBIY EUGENIO, EMPTYING 8 MEDICAL TAO IMAGING [place] [address] [facility] AMYLASE 8 [facility] INC INC COMPREHEN 16535 [facility] SIVE 8 [facility] METABOLIC INC INC PANEL BLOOD 42594 [facility] COUNT 8 [facility] COMPLETE INC INC AUTO&AUTO DIFRNTL WBC RADEX ABD 21746 [facility] COMPL 8 [facility] AQT ABD INC INC W/S/E/D VIEWS 1 [place] [address] [facility] LIPASE 8 [facility] INC INC WRIST L3908 [facility] CENTRAL HAND 8 BRACE BRACE ORTHOSIS PROSTH PROSTH EXT INC INC CONTROL COCK-UP PREFAB LUMB L0627 [facility]AL CENTRAL ORTHOSIS 8 BRACE BRACE SAGIT PROSTH PROSTH CNTRL INC INC RIGID A&[place] NFS [address] [facility] THER 8 [facility] PROPH/DX INC INC 1ST >1 [place] [address] PATHOLOGY PATHOLOGY SURG 8 & & PATHOLOGY CYTOLOGY CYTOLOGY LAB LAB GROSS&HENRRY ROSCOPIC EXAM EGD 65627 DIEGO JEFFERY, TRANSORAL 8 [facility] BIOPSY SERV SINGLE/MU FOUNDATIO LTIPLE SPECIAL 50482 PATHOLOGY PATHOLOGY STAIN 8 & & GROUP 1 CYTOLOGY CYTOLOGY MICROORGA LAB LAB NISMS I&R SPCL STN 57431 PATHOLOGY PATHOLOGY 2 I&R 8 & & EXCPT CYTOLOGY CYTOLOGY MICROORG/ LAB LAB ENZYME/IM CYT CUL 77723 [facility] PRSMPTV 8 [facility] PTHGNC INC INC ORGANISMS SCR DNS CHART ESOPHAGOG 4516 [facility] WUON ASTRODUOD 8 [facility] ENOSCOPY INC INC WITH CLOSED BIOPSY US SOFT 88971 [facility] TISSUE 8 [facility] HEAD & INC INC NECK REAL TIME IMGE DOCM APPL 62423 [facility] MODALITY 8 [facility] 1/> AREAS INC INC VASOPNEUM ATIC DEVICES APPL 07303 [facility] MODALITY 8 [facility] 1/> AREAS INC INC ELEC STIMJ UNATTENDE D THERAPEUT 39339 [facility] IC PX 1/> 8 [facility] AREAS INC INC EACH 15 MIN EXERCISES PHYSICAL 72252 [facility] THERAPY 8 [facility] [place] [address] [facility] 1/> AREAS 8 [facility] EACH 15 INC INC MIN NEUROMUSC REEDUCA CYTP 51600 AMER[employer] MONY, CERV/VAG 8 [place] INC FRANCISCO JAVIER E AUTO THIN LAYER PREP MNL SCREEN COMPREHEN 09049 [facility] SIVE 8 [facility] [place] [address] [facility] THYROID 8 [facility] STIMULATI INC INC NG HORMONE TSH BLOOD 87536 [facility] COUNT 8 [facility] COMPLETE INC INC AUTO&AUTO DIFRNTL WBC LIPID 04706 [facility] PANEL 8 [facility] INC INC Encounters Encounter Start End Date Code Location Performer Type Date OFFICE 20112 MIMI TOPETE 7 7 [place] T VISIT ORTHOPAED 15 IC MINUTES OFFICE 66273 [place] HALI OUTPATIEN 7 7 [facility] T VISIT INTERNAL 15 MED MINUTES [facility] - 7 7 [facility] OUTPATIEN INC T OFFICE 11246 [facility] NICHOLSONEN 7 7 [facility] T VISIT INC 10 MINUTES OFFICE 13807 ANITA TOPETE 7 7 MD ROSA, T VISIT PSC 15 MINUTES [facility] - 7 7 [facility] OUTPATIEN INC [facility] - 7 7 [facility] OUTPATIEN INC OFFICE 60727 ANITA LEE OUTPATIEN 7 7 MD ROSA, T VISIT PSC 10 MINUTES [facility]OSP[facility] - 7 7 [facility]PATIEN [facility] - 7 7 [facility] OUTPATIEN [facility] - 7 7 [facility] OUTPATIEN [facility] OFFICE 28325 [facility] OUTPATIEN 7 7 [facility] T VISIT 5 INC MINUTES HOSPITAL [facility] - 7 7 [facility] OUTPATIEN [facility] OFFICE 02643 ANITA GILLESPIE OUTPATIEN 7 7 MD ROSA, T VISIT [facility] 15 MINUTES HOSPITAL [facility] - 7 7 [facility] OUTPATIEN [facility] - 7 7 [facility] OUTPATIEN [facility] H[facility] - 7 7 [facility] OUTPATIEN [facility] H[facility]PITAL [facility] - 6 6 [facility] OUTPATIEN [facility] EMERGENCY 33817 [facility] DEPT 6 6 [facility] VISIT INC HIGH SEVERITY& THREAT [facility] OFFICE 57116 [place] MANDUJANO MIS OUTPATIEN 6 6 [facility] VISIT INTERNAL 25 MED MINUTES OFFICE 68542 [place] [facility] OUTPATIEN [address] [facility] T VISIT INTERNAL 15 MED MINUTES EMERGENCY 06308 DULCE SALCEDO 6 6 PHYSICIAN [facility] T VISIT HIGH/URGE NT SEVERITY HOSPITAL [facility] - 6 6 [facility] OUTPATIEN [facility] EMERGENCY 05657 [facility] 6 6 MEM [facility] T VISIT LOW/MODER SEVERITY OFFICE 90810 [facility] PHYSICIAN TU T VISIT S GROUP 15 MINUTES OFFICE 31873 [place] [facility] OUTPATIEN 6 6 [facility] T VISIT INTERNAL 25 MED MINUTES OFFICE 87871 [facility] CALLY OUTPATIEN 6 6 N T VISIT NEUROLOGY 10 MINUTES OFFICE 26533 [facility] C[facility] CONSULTAT 6 6 N ION NEUROLOGY NEW/ESTAB PATIENT 60 MIN HOSPITAL CENTRAL - 6 6 [facility] OUTPATIEN HOSP T OFFICE 52458 [facility] OUTPATIEN 5 5 [facility] T VISIT INTERNAL 25 MED MINUTES EMERGENCY 05919 [facility] DEPT 5 5 EMERGENCY GREG VISIT PHYS PSC HIGH SEVERITY& THREAT FUNCJ EMERGENCY 24849 [facility] 5 5 [facility] DEPARTMEN INC T VISIT LOW/MODER SEVERITY HOSPITAL [facility] - 5 5 [facility] OUTPATIEN INC T EMERGENCY 05853 [facility] DEPT 5 5 PHYSICIAN HENRRY VISIT S, PLLC HIGH SEVERITY& THREAT FUNCJ OFFICE 74545 [facility] 5 5 [facility] ANN T VISIT INTERNAL 15 MED MINUTES [facility] - 5 5 [facility] INPATIENT INC EMERGENCY 89264 [facility] DEPT 5 5 PHYSICIAN HENRRY VISIT S, PLLC HIGH SEVERITY& THREAT FUNCJ OFFICE 47404 [facility] 5 5 WAC[facility] ANN T VISIT INTERNAL 15 MED MINUTES EMERGENCY 54166 [facility] 5 5 PHYSICIAN HENRRY DEPARTMEN S, PLLC T VISIT HIGH/URGE NT SEVERITY [facility] 5 [facility] OUT[facility] INC T OFFICE 53689 [facility] 5 5 WACO ANN T VISIT INTERNAL 15 MED MINUTES OFFICE 17214 SHAMIKA LEE BUX ANJ OUTPATIEN 5 5 MD T NEW 30 MINUTES EMERGENCY 32118 [facility] DEPT 5 5 PHYSICIAN LUEVANO VISIT S, [facility] HIGH SEVERITY& THREAT [facility] - 5 5 HOSPITAL OUTPATIEN T OFFICE 45505 [facility] FALLUJI CONSULTAT 5 5 [facility] ION MEDICAL NEW/ESTAB G PATIENT 60 MIN OFFICE 40726 [facility] CHOLO TOD OUTPATIEN 5 5 PHYSICIAN T VISIT S GROUP 15 MINUTES [facility] - 5 5 [facility] OUTPATIEN INC T OFFICE 24963 [facility] 5 5 [place] T VISIT ORTHOPAED 15 [facility] - 5 5 [facility] OUTPATIEN INC T OFFICE 18848 [facility] CHOLO TOD CONSULTAT 5 5 PHYSICIAN ION S GROUP NEW/ESTAB PATIENT 60 MIN OFFICE 10520 [facility] 5 5 [facility] T VISIT INTERNAL 15 MED MINUTES OFFICE 49107 [facility] 5 5 [place] T VISIT ORTHOPAED 15 [facility] - 5 5 [facility]PAT[facility] INC [facility] - 5 5 [facility] INC [facility] - 5 5 [facility] OUTPATIEN INC T OFF[facility] 51102 [facility] CAMERON OUTPATI[facility] 5 5 [facility] 20 [facility] - 5 5 [facility] OUTPATIEN INC T OFFICE 83561 [facility] CONSULT[facility] 5 5 [place] ION ORTHOPAED NEW/ESTAB [facility] PATIENT 60 MIN OFFICE 35989 [facility] 5 5 [facility] T VISIT INTERNAL 25 MED [facility] - 5 5 [facility] OUTPATIEN INC T OFFICE 48159 JAI VERGARA OUTPATIEN 4 4 T NEW 30 MINUTES OFFICE 21656 BETITO LAL OUTPATIEN 4 4 [facility] ANN T VISIT INTERNAL 25 MED MINUTES OFFICE 66904 MOOSE VIRK OUTPATIEN 4 4 ROHAN ROHAN T VISIT 25 MINUTES OFFICE 15796 DIEGO WEBB OUTPATIEN 4 4 MEDICAL N CHR T VISIT SERV 15 FOUNDATIO MINUTES N OFFICE 05560 UNIVERS[facility] OUTPATIEN 4 4 Y T VISIT 5 HOSPITAL MINUTES [facility]OS[facility] - 4 4 Y OUTPATIEN HOSPITAL T OFFICE 32317 [facility] RENDON CONSULTAT 4 4 ANN ANN ION NEW/ESTAB PATIENT 40 MIN OFFICE 63562 PETTEY PETTEY OUTPATIEN 4 4 JAM JAM T NEW 30 MINUTES OFFICE 07975 ADRIEL HAM ADRIEL HAM OUTPATIEN 4 4 T NEW 45 MINUTES OFFICE 44685 [facility] OUT[facility] 4 4 ANN ANN T VISIT 15 MINUTES OFFICE 10161 ELIZABETH JOHNSON OUTPATIEN 4 4 AUDRA AUDRA T VISIT 15 MINUTES [facility] - 3 3 [facility] OUTPATIEN INC T PERIODIC 98600 ELIZABETH ELIZABETH PREVENTIV 3 3 AUDRA AUDRA E MED EST PATIENT 40-64YRS OFFICE 87819 ADIS ADIS OUTPATIEN 3 3 JR LA LA T VISIT 15 MINUTES [facility] - 3 3 [facility] OUTPATIEN INC T OFFICE 73763 MCKEMIE MCKEMIE OUTPATIEN 3 3 JR ROWE JR SOLEDAD T VISIT 15 MINUTES OFFICE 41262 MCKEMIE MCKEMIE OUTPATIEN 3 3 JR SOLEDAD JR SOLEDAD T VISIT 15 MINUTES EMERGENCY 51371 O'RACHELLE O'RACHELLE DEPT 3 3 CLAIRE CLAIRE VISIT HIGH SEVERITY& THREAT FUNCJ OFFICE 16446 MCKEMIE MCKEMIE OUTPATIEN 3 3 JR SOLEDAD ROWE T VISIT 15 MINUTES EMERGENCY 11068 [facility] 3 3 [facility] DEPARTMEN INC T VISIT LOW/MODER SEVERITY EMERGENCY 55503 DENISSE DENISSE 3 3 HENRRY HENRRY DEPARTMEN T VISIT MODERATE SEVERITY [facility] - 3 3 [facility] T [facility] - 3 3 [facility] OUTPATIEN INC T EMERGENCY 73221 SUSHIL EUBANKS DEPT 3 3 EMERGENCY VISIT SERVICES HIGH SEVERITY& THREAT FUNCJ OFFICE 33648 MCKEMIE MCKEMIE OUTPATIEN 2 2 JR SOLEDAD ROWE T VISIT 15 MINUTES EMERGENCY 58512 SUSHIL EUBANKS 2 2 EMERGENCY DEPARTMEN SERVICES T VISIT HIGH/URGE NT SEVERITY [facility] T OFFICE 55126 MCKEMIE MCKEMIE OUTPATIEN 2 2 JR SOLEDAD ROWE T VISIT 15 MINUTES OFFICE 34494 M[facility] MCKEMIE OUTPATIEN 2 2 JR SOLEDAD ROWE T VISIT 10 MINUTES [facility] T OFFICE 75852 MERANG VALERIA WHANG VALERIA OUTPATIEN 2 2 T VISIT 10 MINUTES [facility] T [facility] T OFFICE 65139 MCKEMIE MCKEMIE OUTPATIEN 2 2 JR SOLEDAD ROWE T VISIT 15 MINUTES OFFICE 74658 MCKEMIE MCKEMIE OUTPATIEN 2 2 JR SOLEDAD ROWE T VISIT 15 MINUTES [facility] T OFFICE 84912 MCKEMIE MCKEMIE OUTPATIEN 2 2 JR SOLEDAD ROWE T VISIT 15 MINUTES [facility] T OFFICE 81876 [place] MCKEMIE OUTPATIEN 1 1 YAHAIRA ROWE T VISIT INTERNAL 15 MED MINUTES OFFICE 49931 C TYLER ALANIS OUTPATIEN 1 1 ANNABELLE Espinosa VISIT [facility] 10 MINUTES OFFICE 42255 ALEVISM IMAM MOH OUTPATIEN 1 1 CARDIOTHO T VISIT RACIC 10 SURGI [facility] T OFFICE 94023 C TYLER ALANIS CONSULTAT 1 1 ANNABELLE MORSE MD [facility] NEW/ESTAB PATIENT 60 MIN OFFICE 69493 [place] MCKEMIE OUTPATIEN 1 1 YAHAIRA ROWE T VISIT INTERNAL 15 MED MINUTES [facility] 1 [facility] T OFFICE 88074 [place] BESSON OUTPATIEN 0 0 YAHAIRA JUAREZ T VISIT INTERNAL 15 MED MINUTES [facility] T EMERGENCY 85124 SUSHIL SALCEDO DEPT 0 0 EMERGENCY HENRRY VISIT SERVICES HIGH SEVERITY& THREAT FUN EMERGENCY 94147 [facility] 0 0 [facility] DEPARTMEN INC T VISIT MODERATE SEVERITY OFFICE 15485 ALEVISM IMAM MOH OUTPATIEN 0 0 CARDIOTHO T VISIT RACIC 10 SURGI [facility] - 0 0 [facility] OUTPATIEN HOSP T OFFICE 79262 ALEVISM IMAM MOH OUTPATIEN 0 0 CARDIOTHO T VISIT RACIC 10 SURGI MINUTES EMERGENCY 77817 SUSHIL LEAL 0 0 EMERGENCY [facility] SERVICES T VISIT HIGH/URGE NT SEVERITY OFFICE 59583 [facility] CONSULTAT 0 0 PHYSICIAN KERWIN MCKEON NEW/ESTAB PATIENT 60 MIN OFFICE 63289 [place] BESSON OUTPATIEN [address] [facility] T VISIT INTERNAL 15 [facility] 0 [facility] 0 0 [facility] INC T OFFICE 52103 [place] BESSON OUTPATIEN [address] [facility] T VISIT INTERNAL 25 [facility] - 0 0 [facility] - 0 0 [facility] T OFFICE 58108 ALEVISM FLOWERS OUTPATIEN 0 0 CARDIOTHO SOLEDAD T VISIT RAC 10 [facility] OFFICE 30717 [place] MCKEMIE OUTPATIEN 0 0 [facility], T VISIT INTERNAL SHRUTHI F 15 [facility] 0 0 [facility] T OFFICE 78449 ALEVISM FLOWERS OUTPATIEN 9 9 CARDIOTHO SOLEDAD T VISIT RACIC 10 [facility] - 9 9 [facility] OUT[facility] INC T OFFICE 54862 FLOWERS, FLOWERS, OUTPATIEN 9 9 LAILA Francis T VISIT 10 [facility] - 9 9 [facility] T OFFICE 96523 LIONEL FLOWERS, CONSULTAT 9 9 LAILA Francis ION NEW/ESTAB PATIENT 40 MIN OFFICE 18326 [place] MCKEMIE OUTPATIEN 9 9 YAHAIRA WALDRON, T VISIT INTERNAL SHRUTHI F 15 MED MINUTES OFFICE 69869 [place] MCKEMIE OUTPATIEN 9 9 YAHAIRA WALDRON, T VISIT INTERNAL SHRUTHI F 15 MED MINUTES [facility] 9 [facility] 9 9 [facility] T OFFICE 17318 YOGI BASS 9 9 AMBER Russell ION SERV NEW/ESTAB FOUNDATIO PATIENT 40 MIN EMERGENCY 64871 [facility] 9 9 [facility] DEPARTMEN INC T VISIT MODERATE SEVERITY [facility] 9 9 [facility] T EMERGENCY 56082 KEVIN SALCEDO, 9 9 [facility] T VISIT ON HIGH/URGE NT SEVERITY [facility] 9 9 [facility] T OFFICE 72893 [place] YOSELYN SZYMANSKI 9 9 YAHAIRA NOLAND VISIT INTERNAL 15 MED MINUTES OFFICE 04823 [place] JUDYE OUTPATIEN 8 8 YAHAIRA WALDRON Jesús VISIT INTERNAL SHRUTHI F 15 MED MINUTES OFFICE 35616 YOSELYN FARRIS 8 8 [facility] VISIT SERV 15 FOUNDATIO MINUTES [facility] 8 [facility] 8 8 [facility] T OFFICE 66389 YOSELYN FARRIS 8 8 [facility] T VISIT SERV 25 FOUNDATIO MINUTES [facility] 8 8 [facility] T OFFICE 90740 YOGI FARRIS 8 8 [facility] ION SERV NEW/ESTAB FOUNDATIO PATIENT 60 MIN [facility] 8 8 [facility] T EMERGENCY 34405 [facility] 8 8 [facility] DEPARTMEN INC T VISIT MODERATE SEVERITY OFFICE 64830 YOSELYN FARRIS 8 8 [facility] T VISIT SERV 15 FOUNDATIO MINUTES [facility] 8 8 [facility] T OFFICE 27860 YOGI FARRIS 8 8 [facility] ION SERV NEW/ESTAB FOUNDATIO PATIENT 60 MIN OFFICE 78792 [place] BARB OUTPATIEN 8 8 Jesús SYED JR VISIT INTERNAL SHRUTHI F 15 MED MINUTES [facility] 8 [facility] 8 8 [facility] T OFFICE 42214 [place] YOSELYN SZYMANSKI 8 8 WACO LUDIN T VISIT INTERNAL 25 MED MINUTES [facility] 00409 [employer], PREVENTIV 8 8 [facility] OF PATIENT [id number] [facility] OFFICE 38825 [place] BARB OUTPATIEN 8 8 Jesús SYED JR VISIT INTERNAL SHRUTHI F 15 MED MINUTES [facility] - 8 8 [facility] T OFFICE 30650 [place] YOSELYN SZYMANSKI 8 8 YAHAIRA NOLAND T VISIT INTERNAL 15 MED MINUTES OFFICE 15061 [place] YOSELYN SZYMANSKI 8 8 YAHAIRA NOLAND T VISIT INTERNAL 25 MED MINUTES
--- OUTSIDE RECORDS SUMMARY | 2017-08-22 00:27 | External Medical Summary Rpt | CCD ---
Author Author , JARROD Organization JARROD Address Unknown Phone Care Team Providers Care Coagulator Name Role Phone RAKESH GUZMÁN, CAMERON Unavailable Unavailable ARIELLE ANITA LEE MD, PSC, Unavailable Unavailable ANITA LEE MD, PSC [facility] JR [facility], Unavailable Unavailable ADIS JR LA [...] NATHANIEL LEO, NATHANIEL Unavailable Unavailable LEO [facility], Unavailable Unavailable [facility] Un[facility] INC, [facility] Unavailable Unavailable [facility], [facility] Unavailable Unavailable [facility], [facility] & Unavailable [...] Unavailable [facility] [place] [facility] [place] [facility] Un[facility] Un[place], [facility] FALLUJI ROM, FALLUJI Unavailable Unavailable ROM FAISHAANN LUEVANO, FAUGHN Unavailable Unavailable LUEVANO ELIZABETH AUDRA, Unavailable Unavailable ELIZABETH AUDRA ELIZABETH AUDRA, Unavailable Unavailable ELIZABETH AUDRA BEAN CHR, BEAN CHR Unavailable Unavailable DENISSE HENRRY, DENISSE Unavailable Unavailable HENRRY DENISSE, SHANNAN S, Unavailable Unavailable DENISSE, SHANNAN S [facility], Unavailable Unavailable [facility] Unavailable Unavailable [facility], [facility] Unavailable Unavailable [facility], [facility] Unavailable Unavailable INC, [facility] Unavailable Unavailable HOSPITAL P, [facility] NESSA, LUDIN, NESSA, Unavailable Unavailable [facility], Unavailable Unavailable [facility] LOZADA TRA, LOZADA TRA Unavailable Unavailable IMAM MOH, IMAM MOH Unavailable Unavailable VINCENT THOMAS, VINCENT Unavailable Unavailable THOMAS MONTANO SHANNON, MONTANO Unavailable Unavailable SHANNON MONTANO SHANNON, MONTANO Unavailable Unavailable SHANNON MEL FAUSTO, MEL Unavailable Unavailable FAUSTO SALGADO, SALGADO Unavailable Unavailable STEPHIE JOSS, STEPHIE JOSS Unavailable Unavailable [facility] Un[facility], [facility] Unavailable Unavailable MEDICAL G, [facility] MEDICAL G TOSHIA THO, TOSHIA THO Unavailable [...] Unavailable [facility] Unavailable Unavailable SPECIALISTS,, [facility], [facility] Unavailable Unavailable INTERNAL MED, [facility] DOUGHERTY ALEXUS, DOUGHERTY Unavailable Unavailable ALEXUS SHAMIKA LEE MD, SHAMIKA Unavailable Unavailable ROSA CARLOS, KIRA Russell, TERRANCE, Unavailable Unavailable KIRA Russell ADRIEL HAM, ADRIEL HAM Unavailable Unavailable ADRIEL HAM, ADRIEL HAM Unavailable Unavailable [facility] Unavailable Unavailable SERVICES, [facility] MCKEMIE JR [facility], Unavailable Unavailable [...] JAVIER SYKES, Unavailable Unavailable FRANCISCO JAVIER SYKES [facility], Unavailable Unavailable [facility], Unavailable Unavailable [facility] VILLARAN YUR, Unavailable Unavailable VILLARAN YUR VILLARAN YUR, Unavailable Unavailable VILLARAN YUR [facility] # Unavailable Unavailable [id number], [facility] # [id number] KARLY CHRISTIAN, Unavailable Unavailable KARLY EUBANKS, TICO EUBANKS Unavailable Unavailable MERANG VALERIA, YUNIOR VALERIA Unavailable Unavailable Purpose Continuity of Care Document - 12-02-2007 through 2016 Problems Code Diagnosis DOS Provider Status M545 LOW BACK 04-27-2017 [facility] R300 DYSURIA 03-24-2017 [facility] [id number] SPONDYLOSIS 03-03-2017 ANITA LEE, W/O , PSC MYELOPATH/R ADICULOPATH Y LUMB RGN 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 [id number] OTHER LONG 02-24-2017 [facility] TERM [facility] [...] MEM HOSP HYPERTENSIO INC N I2510 ASHD REDDING 12-31-2016 [facility] CORONARY [facility] ARTERY W/O INC ANGINA [place]ECT[place] I739 PERIPHERAL 12-31-2016 [facility] VASCULAR [facility] DISEASE INC UNSPECIFIED M461 SACROILIITI 12-30-2016 [facility] S NOT [facility] ELSEWHERE INC CLASSIFIED I200 UNSTABLE 11-26-2016 [facility] ANGINA [facility] INC I209 ANGINA 11-26-2016 [facility] PH[facility]ANS UNSPECIFIED GROUP 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 [facility] TRICUSPID SERV [facility] INSUFFICIEN CY I6523 OCCLUSION & 11-26-2016 [facility] BILATERAL [facility] CAROTID ARTERIES R0602 SHORTNESS 11-26-2016 [facility] OF BREATH [facility] INC Z955 PRESENCE OF 11-26-2016 [facility] CORONARY [facility] ANGIOPLASTY INC IMPLANT & GRAFT J449 CHRONIC 11-04-2016 [facility]STRUCTIVE [facility]ICAL PULMONARY IMAGING ASS DISEASE UNS J9811 ATELECTASIS 11-04-2016 [facility] R05 COUGH 11-04-2016 [facility] R079 CHEST PAIN 11-04-2016 [facility]NSPECIFIED [facility]ING [facility] I129 HYPERTENSIV 11-03-2016 [facility] Tovar CKD [facility] W/STAGE 1-4 HOSPITAL P CKD OR UNS CKD N189 CHRONIC 11-03-2016 [facility] KIDNEY [facility] DISEASE INC UNSPECIFIED Z720 TOBACCO USE 11-03-2016 [facility] INC K5900 CONSTIPATIO 08-27-2016 [facility] UNSPECIFIED INTERNAL MED N390 URINARY 08-27-2016 [facility] TRACT [facility] INFECTION INTERNAL SITE NOT MED SPECIFIED R102 PELVIC AND 08-27-2016 [facility] PERINEAL [facility] PAIN INTERNAL MED Q73027 ENCOUNTER 08-27-2016 [facility] [employer] [facility] GENERAL RTN W/O ABNORMAL FIND Z124 ENCOUNTER 08-27-2016 [facility] OTHER [facility] SCREENING INTERNAL MALIG MED NEOPLASM CERVIX E40279 PERSONAL 08-27-2016 [facility] HISTORY OF VALLEY COLONIC INTERNAL POLYPS MED Z1231 ENCOUNTER 08-26-2016 [facility] S[facility]ENING [facility]ICAL MAMMO MALIG IMAGING ASS NEOPLASM BREAST Z5181 ENCOUNTER 08-05-2016 [facility] THERAPEUTIC LA DRUG LEVEL MONITORING R51 HEADACHE 06-11-2016 [facility] INTERNAL MED K219 GASTRO-ESOP 05-29-2016 [facility] H REFLUX [facility] DISEASE INC WITHOUT ESOPHAGITIS L723 SEBACEOUS 05-29-2016 [facility] CYST [facility] INC L729 FOLLICULAR 05-29-2016 [facility], SKIN & SUBQ PLLC TISSUE UNS H6123 IMPACTED 03-20-2016 [facility] CERUMEN PHYSICIANS BILATERAL GROUP H6523 CHRONIC 03-20-2016 [facility] SEROUS PHYSICIANS OTITIS GROUP MEDIA BILATERAL G8929 OTHER 03-17-2016 [facility] CHRONIC [facility] PAIN INTERNAL MED R109 UNSPECIFIED 03-17-2016 [facility] ABDOMINAL [facility] PAIN INTERNAL MED G250 ESSENTIAL 01-23-2016 [facility] R202 PARESTHESIA 01-23-2016 [facility] K269 DUOD ULCR 11-12-2015 [facility] UNS AC SURGIAL OR CHRON ASSOCIATE W/O HEMORR OR PERF K3189 OTHER 11-12-2015 [facility] DISEASES OF SURGIAL STOMACH ASSOCIATE AND DUODENUM K319 DISEASE OF 11-12-2015 [facility] DUODENUM DUBILIER UNSPECIFIED R0789 OTHER CHEST 11-12-2015 [facility] PAIN SURGIAL ASSOCIATE R1013 EPIGASTRIC 11-12-2015 [facility] R634 ABNORMAL 11-12-2015 [facility] WEIGHT LOSS [...] 09-02-2015 [facility], NEURITIS PLLC UNSPECIFIED M49652 PAIN IN 09-02-2015 [facility] LEFT LOWER MEDICAL LEG IM[facility]ING ASS R65036 PAIN IN 09-02-2015 [facility] LEFT FOOT PHYSICIANS, PLL E43239V UNSPECIFIED 09-02-2015 [facility] INJURY MEDICAL LEFT FOOT IMAGING ASS INITIAL ENCOUNTER H524 PRESBYOPIA 08-09-2015 [facility] ANG 87101 INTESTINAL 07-20-2015 [facility] INFECTIONS [facility] DUE INTERNAL CLOSTRIDIUM MED DIFFICILE 65919 DEHYDRATION 07-08-2015 [facility] INC 47129 CORONARY 07-08-2015 [facility] ATHEROSCLER [facility] OSIS [facility] INC CORONARY ARTERY 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 07-08-2015 [facility] [...] IN SITU V4582 POSTSURG 07-08-2015 [facility] PERCUT [facility] TRANSLUMINA INC L COR ANGPLSTY STS 5849 ACUTE 07-07-2015 [facility]ID[facility], FAILURE PLLC UNSPECIFIED 83203 ABDOMINAL 07-07-2015 [facility] PA[facility], MEDICAL GENERALIZED IMAGING ASS 7823 EDEMA 07-02-2015 [facility] INTERNAL MED 5180 PULMONARY 06-30-2015 [facility]SE [facility] 54143 SWELLING OF 06-30-2015 [facility] 5952 OTHER 06-19-2015 [facility] P 5989 UNSPECIFIED 06-19-2015 [facility] URETHRAL [facility] P 64309 URINARY 06-19-2015 [facility] P 59164 OTHER 06-19-2015 [facility] ABNORMALITY ANESTH OF OF THE BLUE URINATION 76337 OTHER 06-04-2015 [facility] CHRONIC [facility] PAIN INTERNAL MED 4019 UNSPECIFIED 06-04-2015 [facility] ESSENTIAL [facility] HYPERTENSIO INTERNAL N MED 30780 INSOMNIA 06-04-2015 [facility] UNSPECIFIED VALLEY INTERNAL MED 496 CHRONIC 05-29-[address] [facility] [address] [facility] OBSTRUCTION INTERNAL NEC MED 5609 UNSPECIFIED 05-29-2015 [facility] INTESTINAL [facility] INTERNAL OBSTRUCTION MED 44284 DEGEN 2015 SHAMIKA LEE LUMBAR/LUMB OSACRAL INTERVERTEB RAL DISC 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 2015 SHAMIKA GREENWOODOSAJOLANTA CABRERA NEURITIS/RA DICULITIS UNSPEC 7873 FLATULENCE 2015 [facility]ATION [facility] PAIN 98463 ABDOMINAL 2015 [place] PA[facility], MEDICAL UNSPECIFIED IMAGING ASS SITE 4168 OTHER 05-15-2015 [facility] CHRONIC HEALTH PULMONARY MEDICAL G HEART DISEASES 4240 MITRAL 05-15-2015 [facility] VALVE HEALTH DISORDERS MEDICAL G 4242 TRICUSPID 05-15-2015 [facility] VALVE HEALTH DISORDERS MEDICAL G SPEC NONRHEUMATI C 33066 CHEST PAIN 05-15-2015 [facility] UNSPECIFIED HEALTH MEDICAL G 48405 OTHER CHEST 05-02-2015 [facility] PAIN HEALTH MEDICAL G V7281 PRE-OPERATI 05-02-2015 [facility] HEALTH CARDIOVASCU MEDICAL G LAR EXAMINATION 7936 NONSPEC ABN 04-25-2015 [facility] FINDNG RAD PHYSICIANS & OTH EXAM GROUP ABDOMINAL AREA 64319 OTHER 04-25-2015 [facility] ABNORMAL PHYSICIANS FINDING GROUP RADIOLOGICA L EXAM BREAST 5768 OTHER 04-10-2015 [place] SPECIFIED MEDICAL DISORDERS IMAGING ASS OF BILIARY TRACT 7242 LUMBAGO 03-29-2015 [facility] 7906 OTHER 03-28-2015 [facility] ABNORMAL [facility] BLOOD INC CHEMISTRY 7881 DYSURIA 02-15-2015 [facility] 30658 ABDOMINAL 02-15-2015 [place] PAIN OTHER MEDICAL SPECIFIED IMAGING ASS SITE 7245 UNSPECIFIED 02-07-2015 [facility] BACKACHE [facility] INC V571 OTHER 02-07-2015 [facility] PHYSICAL [facility] THERAPY INC 79585 UNSPECIFIED 02-06-2015 [facility] P 3384 CHRONIC 11-20-2014 [facility] PAIN [facility] SYNDROME INTERNAL MED 61920 OSTEOARTHRO 11-20-2014 [facility] S UNSPEC VALLEY WHETHER INTERNAL GEN/LOC MED UNSPEC SITE 7213 LUMBOSACRAL 11-20-2014 [facility] SPONDYLOSIS IMAGING ASS WITHOUT MYELOPATHY V7612 OTHER 11-20-2014 [place] SCREENING MEDICAL MAMMOGRAM IMAGING ASS 3831 CHRONIC 09-21-2014 [facility] TU MASTOIDITIS 4760 CHRONIC 08-28-2014 [facility] LARYNGITIS 34655 ESOPHAGEAL 08-28-2014 [facility] REFLUX 4408 ATHEROSCLER 08-11-2014 [facility] OSIS OF VALLEY OTHER INTERNAL SPECIFIED MED ARTERIES 34300 ABDOMINAL 08-11-2014 [facility] PAIN, VAL[facility] EPIGASTRIC INTERNAL MED 85614 HYPOXEMIA 07-30-2014 [facility] MEDICAL 33668 OCCLUSION&S 06-27-2014 WYATT Espinosa TENOS CAROTID ART W/O MENTION INFARCT 10373 DIAB W/O 06-26-2014 [facility] COMP TYPE YUR II/UNS NOT STATED UNCNTRL 74289 ELEVATED 06-26-2014 [facility] CARCINOEMBR YUR YONIC ANTIGEN 486 PNEUMONIA, 06-25-2014 MONT[facility]O SHANNON ORGANISM UNSPECIFIED V7282 PRE-OPERATI 06-25-2014 MONTANO SHANNON VE RESPIRATORY EXAMINATION 4111 INTERMEDIAT 06-21-2014 VICKIE Tovar CORONARY HEART SYNDROME SPECIALISTS , 20562 OSTEOARTHRO 06-12-2014 CHARIS ANAHI SIS UNSPEC WHETHER GEN/LOC LOWER LEG 47235 OSTEOARTHRO 06-12-2014 [place] [facility] UNSPEC SERV WHETHER FOUNDATION GEN/LOC ANK&FOOT 31259 PAIN IN 06-12-2014 CHARIS ANAHI JOINT, LOWER LEG 56404 PAIN IN 05-10-2014 [facility] JOINT, ANN ANKLE AND FOOT 8248 UNSPECIFIED 05-10-2014 [facility] FRACTURE OF ANKLE 7177 CHONDROMALA 03-30-2014 [facility] JAM CHAIM OF P[place]LL[place] 25244 PES 03-30-2014 [facility] ANSERINUS TENDINITIS OR BURSITIS 57649 OTHER 03-30-2014 [place] [address] 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 ADRIEL HAM LILI SYNDROME CERVICAL REGION 7234 BRACHIAL 03-23-2014 ADRIEL HAM NEURITIS OR RADICULITIS NOS 7226 DEGENERATIO 12-19-2013 ELIZABETH N AUDRA INTERVERTEB RAL DISC SITE UNSPEC 7292 UNSPECIFIED 12-19-2013 ELIZABETH NEURALGIA AUDRA NEURITIS AND RADICULITIS 41502 OTHER 10-31-2013 EUGENIO SPECIFIED LA DISORDERS OF BREAST 2724 OTHER AND 10-12-2013 ELIZABETH UNSPECIFIED AUDRA HYPERLIPIDE LIN V7231 ROUTINE 10-12-2013 [facility] DARIUSZ AL EXAMINATION 07703 OCCL&STENOS 05-09-2013 EUGENIO MX&BILAT LA PRECERBRL ART W/O INFARCT 7295 PAIN IN 02-25-2013 BARB WALDRON SOFT [facility] TISSUES OF LIMB 5781 BLOOD IN 12-16-2012 [facility] STOOL [facility] INC 99410 DIVERTICULO 12-14-2012 HALI JUAREZ SIS OF COLON 0091 COLITIS 12-13-2012 ANNABELLE ENTERIT&GAS LUDWIN TROENTERIT INF ORIGIN 2662 OTHER 10-25-2012 BARB WALDRON B-COMPLEX SOL[facility] DEFICIENCIE S 97188 ABDOMINAL 2012 [facility] PAIN RIGHT [facility] UPPER INC QUADRANT V8801 ACQUIRED 04-22-2012 [place] ABSENCE OF MEDICAL BOTH CERVIX IMAGING ASS AND UTERUS 8470 NECK SPRAIN 09-04-2011 [facility] AND STRAIN [facility] INC 2113 BENIGN 06-10-2011 C [facility] NEOPLASM OF ANNABELLE COLON PSC V7651 SPECIAL 05-29-2011 [facility] SCREENING [facility] FOR INC MALIGNANT NEOPLASMS COLON 83390 UNSPECIFIED 05-22-2011 C TYLER ANNABELLE CONSTIPATIO PSC N 5693 HEMORRHAGE 05-22-2011 C TYLER OF RECTUM ANNABELLE AND ANUS PSC 5283 CELLULITIS 04-11-2011 [facility] AND ABSCESS VALLEY OF ORAL INTERNAL SOFT MED TISSUES 79523 OTHER ACUTE 10-11-2010 [facility] POSTOPERATI SERVICES VE PAIN 7820 DISTURBANCE 10-11-2010 [facility] OF SKIN EMERGENCY SENSATION SERVICES 48975 OTHER 10-11-2010 [facility] SPECIFIED [facility] COMPLICATIO INC NS NEC V5869 LONG-TERM 09-04-2010 [facility] (CURRENT[facility] USE OF HOSP OTHER MEDICATIONS 4928 OTHER 08-12-2010 [facility] EMPHYSEMA [facility] INTERNAL MED 7862 COUGH 08-11-2010 [facility] 70216 OTHER 08-10-2010 [facility] DISEASES OF EMERGENCY NASAL SERVICES CAVITY AND SINUSES 7291 UNSPECIFIED 08-10-2010 [facility] MYALGIA [facility] MYOSITIS 23788 FEVER 08-10-2010 [facility] UNSPECIFIED [facility]GENCY SERVICES 490 BRONCHITIS 07-31-2010 [facility] NOT [facility]LEY SPECIFIED INTERNAL ACUTE OR MED CHRONIC 4919 UNSPECIFIED 01-30-2010 [facility] CHRONIC [facility] BRONCHITIS INC 4660 ACUTE 12-18-2009 [facility] BRONCHITIS [facility] INC 7859 OTHER 12-18-2009 [facility] SYMPTOMS MEDICAL INVOLVING IMAGING CARDIOVASCU ASSOCIATES LAR SYSTEM 4619 ACUTE 08-25-2009 [facility] SINUSITIS, VALLEY UNSPECIFIED INTERNAL MED 21434 PRIMARY 04-16-2009 [place] [facility] LOCALIZED SERV OSTEOARTHRO FOUNDATIO SIS LOWER LEG 6929 CONTACT 11-22-2008 [facility] DERMATITIS& VALLEY OTHER INTERNAL ECZEMA DUE MED UNSPEC CAUSE 47336 OTHER 09-25-2008 [facility] ANXIETY [place] STATES INTERNAL MED 4279 UNSPECIFIED 09-25-2008 [facility] CARDIAC [facility] DYSRHYTHMIA INTERNAL MED 85829 ABDOMINAL 09-06-2008 [place] [facility] PAIN, SERV PERIUMBILIC FOUNDATIO 56560 ACUTE 07-02-2008 [facility] GASTRITIS [facility] WITHOUT INC MENTION OF HEMORRHAGE 39668 UNSPECIFIED 05-10-2008 [place] [facility] SERV ESOPHAGITIS FOUNDATIO 73734 ATROPHIC 05-10-2008 PATHOLOGY & GASTRITIS CYTOLOGY WITHOUT LAB MENTION OF HEMORRHAGE 16885 UNS 05-10-2008 [place] [facility] GASTRITIS&G SERV ASTRODUODIT FOUNDATIO IS W/O MENTION HEMORR 05047 DUODENITIS 05-10-2008 PATHOLOGY & WITHOUT CYTOLOGY MENTION OF LAB HEMORRHAGE 77489 EFFUSION OF 03-28-2008 TAO C LOWER LEG EUGENIO JOINT 2409 GOITER, 03-17-2008 [facility] UNSPECIFIED MEDICAL IMAGING ASSOCIATES 2410 NONTOXIC 03-17-2008 [facility] UNINODULAR [facility]P GOITER INC 70501 DYSPHAGIA 03-17-2008 [facility] DUE TO [facility] HOS[facility] CEREBROVASC INC ULAR DISEASE 7179 UNSPECIFIED 03-14-2008 [facility] INTERNAL [facility] DERANGEMENT INC OF KNEE 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 V762 SCREENING 03-09-2008 [facility] [place] INC MALIGNANT NEOPLASM OF THE CERVIX 7224 DEGENERATIO 02-14-2008 [facility] N OF [place] CERVICAL INTERNAL INTERVERTEB MED RAL DISC 15908 SPASM OF 02-14-2008 [facility] MUSCLE [place] INTERNAL MED 462 ACUTE 01-18-2008 [facility] PHARYNGITIS [...] 08 09 30 30 00 EA Ac MT 37 -2 -[address] ti [...] ve LO 37 20 20 49 DE MT 40 17 17 17 AM 1 16 [...] 86 -2 -[address] ti MT 20 1- 5- 00 00 SI ve [...] 86 -2 -[address] ti MT 20 0- 8- 00 00 SI ve [...] ve LO 37 20 20 49 DE MT 40 17 17 17 AM 1 16 [...] 07 08 30 30 00 EA Ac MT 37 -2 -[address] ti [...] 06 07 30 30 00 EA Ac MT 37 -1 -[address] ti [...] 86 -1 -[address] ti MT 20 9- 4 00 SI ve OL [...] ve LO 37 20 20 49 DE MT 40 17 17 17 AM 1 16 [...] ve LO 37 20 20 48 DE MT 40 17 17 37 AM 1 26 [...] 86 -2 -[address] ti MT 20 1- 3- 00 00 SI ve OL 06 20 20 48 DE OL 39 17 17 83 9 28 PH TA AR RT MA RA CY TE OF 50 CY NT MG HI AN TA A B IN C BU 10 05 06 30 30 00 EA Ac MT 37 -2 -[address] ti [...] 86 -1 -[address] ti MT 20 8- 2- 00 00 SI ve OL 06 20 20 47 DE OL 39 17 17 28 9 69 PH TA AR RT MA RA CY TE OF 50 CY NT MG HI AN TA A B IN C BU 10 04 05 30 30 00 EA Ac MT 37 -1 -[address] ti [...] ve LO 37 20 20 48 DE MT 40 17 17 37 AM 1 26 [...] 5 73 PH CE AR TA MA [place] CY NO PH OF N CY 10 [...] 86 -1 -[address] ti MT 20 7- 4- 00 00 SI ve [...] 03 04 30 30 00 EA Ac MT 37 -1 -[address] ti [...] 5 80 PH CE AR TA MA [place] CY NO PH OF CY 7. NT [...] 86 -1 -[address] ti MT 20 7- 7- 00 00 SI ve [...] 5 86 PH CE AR TA MA IL CY NO PH OF N CY 10 [...] 02 03 30 30 00 EA Ac MT 37 -1 -[address] ti [...] 86 -1 -[address] ti MT 20 8- 0- 00 00 SI ve [...] 5 90 PH CE AR TA MA IL CY NO PH OF N CY 10 [...] 01 02 12 30 00 EA Ac MT 78 -0 -[address] ti [...] 15 7- 7- 00 00 SI ve MT 02 20 20 47 DE ED 20 [...] 86 -1 -[address] ti MT 20 9- 0- 00 00 SI ve [...] 5 36 PH CE AR TA MA IL CY NO PH OF N CY 10 NT -3 HI 25 AN A IN C AL 00 12 01 12 30 00 EA Ac MT 78 -0 -[address] ti AZ 11 6- 9- 00 00 SI ve OL 07 20 20 0 46 DE AM 91 16 17 78 1 0 51 PH AR MG MA CY TA BL OF ET CY NT HI AN A IN C MT 37 07 10 3 30 30 EA [...] 0 DE RA [address] [place] 6 PH EP DE AR HE MA N 10 CY A MG OF TA CY BL NT ET HI AN A ME 00 07 10 3 60 30 EA 23 BE Ac TO 09 -2 -[address] 36 SS ti MT 30 0- 1- 00 SI 99 ON [...] 0- 1- 00 SI 00 ON ve MT 75 20 20 DE [place] [address] 0 PH EP 10 AR HE MA N MG CY A TA OF BL ET CY NT HI AN A CR 00 08 10 3 30 30 EA 23 MC Ac ES 31 -2 -[address] 76 KE ti TO 00 2 1 00 SI 62 IL ve R 75 20 20 DE E 10 19 11 11 JR 0 PH MG AR WI MA LL TA CY IA BL M ET OF F CY NT HI AN A AL 67 10 10 0 90 30 EA 24 MC Ac MT 25 -2 -[address] 61 KE ti AZ 30 1 SI 33 IL ve OL 90 20 20 DE E AM 21 11 11 JR 1 0 PH AR WI MG MA LL CY IA TA M BL OF F ET CY NT HI AN A TR 65 10 10 0 90 30 EA 24 MC Ac AM 16 -2 -[address] 61 KE ti AD 20 1 SI 34 IL ve OL 62 20 20 DE E 71 11 11 JR HC 1 PH L AR WI 50 MA LL CY IA MG M OF F TA BL CY ET NT HI AN A TR 00 08 10 4 15 4 EA 23 MC Ac IA 16 -2 -[address] 76 KE ti MC 80 2- 1- 00 SI 63 IL ve IN 00 20 20 DE E OL 31 11 11 JR ON 5 PH E AR WI 0. MA LL 02 CY IA 5% M OF F CR EA CY M NT HI AN A 00 10 10 0 60 30 EA 24 MC Ac 59 -1 -[address] 44 KE ti 10 0- 1- 00 SI 97 IL ve 50 20 20 DE E 30 11 11 JR 1 PH AR WI MA LL CY IA M OF F CY NT HI AN A IL 00 09 09 0 30 30 EA 24 MC Ac RT 09 -2 -[address] 23 KE ti AZ 37 3- 3- 00 SI 05 IL ve AP 20 20 20 DE E IN 75 11 11 JR E 6 PH 30 AR WI MA LL MG CY IA M TA OF F BL ET CY NT HI AN A MT 37 07 09 3 30 30 EA [...] 0 DE RA [address] [place] 6 PH EP DE AR HE MA N 10 CY A MG OF TA CY BL NT ET HI AN A ME 00 07 09 3 60 30 EA 23 BE Ac TO 09 -2 -[address] 36 SS ti MT 30 0- 2- 00 SI 99 ON [...] 0- 2- 00 SI 00 ON ve MT 75 20 20 DE [place] [address] 0 PH EP 10 AR HE MA N MG CY A TA OF BL ET CY NT HI AN A CR 00 08 09 3 30 30 EA 23 MC Ac ES 31 -2 -[address] 76 KE ti TO 00 2- 2- 00 SI 62 IL ve R 75 20 20 DE E 10 19 11 11 JR 0 PH MG AR WI MA LL TA CY IA BL M ET OF F CY NT HI AN A AL 67 09 09 0 90 30 EA 24 MC Ac MT 25 -2 -[address] 19 KE ti AZ 30 1- 1- 00 SI 16 IL ve OL 90 20 20 DE E AM 21 11 11 JR 1 0 PH AR WI MG MA LL CY IA TA M BL OF F ET CY NT HI AN A TR 65 09 09 0 90 30 EA 24 MC Ac AM 16 -2 -[address] 19 KE ti AD 20 1- 1- 00 SI 17 IL ve OL 62 20 20 DE E [...] 0 DE RA [address] [place] 6 PH EP DE AR HE MA N 10 CY A MG OF TA CY BL NT ET HI AN A ME 00 07 08 3 60 30 EA 23 BE Ac TO 09 -2 -[address] 36 SS ti MT 30 0- 2- 00 SI 99 ON [...] 0- 2- 00 SI 00 ON ve MT 75 20 20 DE [place] [address] 0 PH EP 10 AR HE MA N MG CY A TA OF BL ET CY NT HI AN A TR 00 08 08 4 15 10 EA 23 MC Ac IA 16 -2 -[address] 76 KE ti MC 80 2- 2- 00 SI 63 IL ve IN 00 20 20 DE E OL 31 11 11 JR ON 5 PH E AR WI 0. MA LL 02 CY IA 5% M OF F CR EA CY M NT HI AN A AL 67 08 08 0 90 30 EA 23 MC Ac MT 25 -2 -[address] 76 KE ti AZ 30 2- 2- 00 SI 64 IL ve OL 90 20 20 DE E AM 21 11 11 JR 1 0 PH AR WI MG MA LL CY IA TA M BL OF F ET CY NT HI AN A 00 08 08 0 60 30 EA 23 MC Ac 59 -1 -[address] 63 KE ti 10 1- 1- 00 SI 03 IL ve 50 20 20 DE E 30 11 11 JR 1 PH AR WI MA LL CY IA M OF F CY NT HI AN A AL 67 07 07 0 90 30 EA 23 BE Ac MT 25 -2 -[address] 36 SS [...] ET OF CY NT HI AN A MT 37 07 07 3 30 30 EA [...] 0 DE RA [address] [place] 6 PH EP DE AR HE MA N 10 CY A MG OF TA CY BL NT ET HI AN A ME 00 07 07 3 60 30 EA 23 BE Ac TO 09 -2 -[address] 36 SS ti MT 30 0- 0- 00 SI 99 ON [...] ti 10 1- 1- 00 SI 96 IL ve 50 20 20 DE E 30 11 11 JR 1 PH AR WI MA LL CY IA M OF F CY NT HI AN A ME 16 03 06 2 12 30 EA 21 MC Ac TO 71 -2 -[address] 78 KE ti CL 40 1- 0- 00 SI 49 IL ve OP 06 20 20 0 DE E RA 20 11 11 JR IL 6 PH DE AR WI MA LL 10 CY IA M MG OF F TA CY BL NT ET HI AN A 64 04 06 2 30 30 EA 22 MC Ac 67 -2 -[address] 21 KE ti 90 1- 0- 00 SI 02 IL ve 92 20 20 DE E 90 11 11 JR 6 PH AR WI MA LL CY IA M OF F CY NT HI AN A ME 00 04 06 2 60 30 EA 22 MC Ac TO 09 -2 -[address] 21 KE ti MT 30 1- 0- 00 SI 03 IL ve OL 73 20 20 DE E OL 31 11 11 JR 0 PH TA AR WI RT MA LL RA CY IA TE M OF F 50 CY MG NT HI TA AN B A MT 37 06 06 2 30 30 EA 23 MC Ac IL 00 -2 -[address] 01 KE ti OS 00 0- 0- 00 SI 17 IL ve EC 45 20 20 DE E 50 11 11 JR OT 2 PH C AR [place] 20 MA LL .6 CY IA M MG OF F TA CY BL NT ET HI AN A TR 65 06 06 0 90 30 EA 23 MC Ac AM 16 -2 -[address] 01 KE ti AD 20 0- 0- 00 SI 87 IL ve OL 62 20 20 DE E 71 11 11 JR HC 1 PH L AR [place] 50 MA LL CY IA MG M OF F TA BL CY ET NT HI AN A CR 00 06 06 0 30 30 EA 23 MC Ac ES 31 -2 -[address] 01 KE ti TO 00 0- 0- 00 SI 88 IL ve R 75 20 20 DE E 10 19 11 11 JR 0 PH MG AR WI MA LL TA CY IA BL M ET OF F CY NT HI AN A AL 67 06 06 0 90 30 EA 23 MC Ac MT 25 -2 -[address] 01 KE ti AZ 30 0- 0- 00 SI 89 IL ve OL 90 20 20 DE E [...] TO 00 1- 0- 00 SI 41 IL ve R 75 20 20 DE E 10 19 11 11 JR 0 PH MG AR WI MA LL TA CY IA BL M ET OF F CY NT HI AN A MT 37 03 05 2 30 30 EA 21 MC Ac IL 00 -2 -[address] 78 KE ti OS 00 1- 0- 00 SI 42 IL ve EC 45 20 20 DE E 50 11 11 JR OT 2 PH C AR WI 20 MA LL .6 CY IA M MG OF F TA CY BL NT ET HI AN A ME 16 03 05 2 12 30 EA 21 MC Ac TO 71 -2 -[address] 78 KE ti CL 40 1- 0- 00 SI 49 IL ve OP 06 20 20 0 DE E RA 20 11 11 JR IL 6 PH DE AR WI MA LL 10 CY IA M MG OF F TA CY BL NT ET HI AN A 64 04 05 2 30 30 EA 22 MC Ac 67 -2 -[address] 21 KE ti 90 1- 0- 00 SI 02 IL ve 92 20 20 DE E 90 11 11 JR 6 PH AR WI MA LL CY IA M OF F CY NT HI AN A ME 00 04 05 2 60 30 EA 22 MC Ac TO 09 -2 -[address] 21 KE ti MT 30 1- 0- 00 SI 03 IL ve OL 73 20 20 DE E [...] 0 90 30 EA 22 BE Ac MT 25 -2 -[address] 62 SS [...] MC 80 7- 7- 00 SI 04 IL ve IN 00 20 20 DE E OL 31 11 11 JR ON 5 PH E AR WI 0. MA LL 02 CY IA 5% M OF F CR EA CY M NT HI AN A 00 05 05 0 60 30 EA 22 MC Ac 59 -0 -[address] 45 KE ti 10 SI 24 IL ve 50 20 20 DE E 30 11 11 JR 1 PH AR WI MA LL CY IA M OF F CY NT HI AN A AL 67 03 04 1 90 30 EA 21 MC Ac MT 25 -2 -[address] 78 KE ti AZ 30 SI 39 IL ve OL 90 20 20 DE E AM 21 11 11 JR 1 0 PH AR WI MG MA LL CY IA TA M BL OF F ET CY NT HI AN A TR 65 03 04 1 90 30 EA 21 MC Ac AM 16 -2 -[address] 78 KE ti AD 20 SI 40 IL ve OL 62 20 20 DE E 71 11 11 JR HC 1 PH L AR [place] 50 MA LL CY IA MG M OF F TA BL CY ET NT HI AN A CR 00 03 04 2 30 30 EA 21 MC Ac ES 31 -2 -[address] 78 KE ti TO 00 SI 41 IL ve R 75 20 20 DE E 10 19 11 11 JR 0 PH MG AR WI MA LL TA CY IA BL M ET OF F CY NT HI AN A MT 37 03 04 2 30 30 EA 21 MC Ac IL 00 -2 -[address] 78 KE ti OS 00 SI 42 IL ve EC 45 20 20 DE E 50 11 11 JR OT 2 PH C AR WI 20 MA LL .6 CY IA M MG OF F TA CY BL NT ET HI AN A 64 04 04 2 30 30 EA 22 MC Ac 67 -2 -[address] 21 KE ti 90 SI 02 IL ve 92 20 20 DE E 90 11 11 JR 6 PH AR WI MA LL CY IA M OF F CY NT HI AN A ME 00 04 04 2 60 30 EA 22 MC Ac TO 09 -2 -[address] 21 KE ti MT 30 SI 03 IL ve OL 73 20 20 DE E OL 31 11 11 JR 0 PH TA AR WI RT MA LL RA CY IA TE M OF F 50 CY MG NT HI TA AN B A 00 04 04 0 60 30 EA 22 MC Ac 59 -0 -[address] 01 KE ti 10 SI 02 IL ve 50 20 20 DE E 30 11 11 JR 1 PH AR WI MA LL CY IA M OF F CY NT HI AN A ME 00 11 03 3 60 30 EA 20 BE Ac TO 09 -1 -[address] 06 SS ti MT 30 SI 82 ON ve OL 73 [...] 1 90 30 EA 21 MC Ac MT 25 -2 -[address] 78 KE ti AZ 30 SI 39 IL ve OL 90 20 20 DE E AM 21 11 11 JR 1 0 PH AR WI MG MA LL CY IA TA M BL OF F ET CY NT HI AN A TR 65 03 03 1 90 30 EA 21 MC Ac AM 16 -2 -[address] 78 KE ti AD 20 SI 40 IL ve OL 62 20 20 DE E 71 11 11 JR HC 1 PH L AR WI 50 MA LL CY IA MG M OF F TA BL CY ET NT HI AN A CR 00 03 03 2 30 30 EA 21 MC Ac ES 31 -2 -[address] 78 KE ti TO 00 SI 41 IL ve R 75 20 20 DE E 10 19 11 11 JR 0 PH MG AR WI MA LL TA CY IA BL M ET OF F CY NT HI AN A MT 37 03 03 2 30 30 EA 21 MC Ac IL 00 -2 -[address] 78 KE ti OS 00 SI 42 IL ve EC 45 20 20 DE E 50 11 11 JR OT 2 PH C AR WI 20 MA LL .6 CY IA M MG OF F TA CY BL NT ET HI AN A ME 16 03 03 2 12 30 EA 21 MC Ac TO 71 -2 -[address] 78 KE ti CL 40 SI 49 IL ve OP 06 20 20 0 DE E RA 20 11 11 JR IL 6 PH DE AR WI MA LL [...] ET OF CY NT HI AN A MT 37 11 02 3 30 30 EA [...] 90 KE ti AD 20 SI 01 IL ve OL 62 20 20 DE E 71 11 11 JR HC 1 PH L AR [place] 50 MA LL CY IA MG M OF F TA BL CY ET NT HI AN A AL 00 01 02 1 90 30 EA 20 MC Ac MT 78 -2 -[address] 90 KE ti AZ 11 SI 02 IL ve OL 07 20 20 DE E AM 90 11 11 JR 1 1 PH AR WI MG MA LL CY IA TA M BL OF F ET CY NT HI AN A ME 00 11 02 3 60 30 EA 20 BE Ac TO -1 .[address] 06 SS ti MT 30 9 SI 82 ON ve OL [...] MC 80 5- 5- 00 SI 38 IL ve IN 00 20 20 DE E [...] KE ti AD 20 1 SI 01 IL ve OL 62 20 20 DE E 71 11 11 JR HC 1 PH L AR WI 50 MA LL CY IA MG M OF F TA BL CY ET NT HI AN A AL 00 01 01 1 90 30 EA 20 MC Ac MT 78 -2 -[address] 90 KE ti AZ 11 SI 02 IL ve OL 07 20 20 DE E [...] ET OF CY NT HI AN A MT 37 11 01 3 30 30 EA [...] 9- 0- 00 SI 85 ON ve MT 75 20 20 [place] [address] 0 PH EP 10 AR HE MA N MG CY A TA OF BL ET CY NT HI AN A ME 00 11 01 3 60 30 EA 20 BE Ac TO 09 -1 -[address] 06 SS ti MT 30 9- 3- 00 SI 82 ON [...] A OF CY NT HI AN A MT 37 11 12 3 30 30 EA [...] 9- 0- 00 SI 85 ON ve MT 75 20 20 [place] [address] 0 PH EP 10 AR HE MA N MG CY A TA OF BL ET CY NT HI AN A AL 00 12 12 0 90 30 EA 20 MC Ac MT 78 -2 -[address] 47 KE ti AZ 11 0- 0- 00 SI 79 IL ve OL 07 20 20 DE E AM 90 10 10 JR 1 1 PH AR WI MG MA LL CY IA TA M BL OF F ET CY NT HI AN A TR 65 12 12 0 90 30 EA 20 MC Ac AM 16 -2 -[address] 47 KE ti AD 20 0- 0- 00 SI 80 IL ve OL 62 20 20 DE E [...] MC 80 3- 3- 00 SI 36 IL ve IN 00 20 20 DE E [...] 0 90 30 EA 20 BE Ac MT 78 -1 -[address] 06 SS [...] -1 -[address] 06 SS ti MT 30 9 9 SI 82 ON ve OL 73 20 20 DE OL [address] 0 PH EP TA AR HE RT MA N RA CY A TE OF 50 CY MG NT HI TA AN B A MT 37 11 11 3 30 30 EA [...] 9- 9- 00 SI 85 ON ve MT 75 20 20 DE IL 96 10 [...] 0 DE RA [address] IL 6 PH EP DE AR HE MA N 10 CY A MG OF TA CY BL NT ET HI AN A MT 37 08 10 2 30 30 EA [...] -2 -[address] 79 SS ti MT 30 0- 8- 00 SI 03 ON ve OL 73 20 20 DE OL [address] 0 PH EP TA AR HE RT MA N RA CY A TE OF 50 CY MG NT HI TA AN B A AL 00 08 10 2 90 30 EA 18 BE Ac MT 78 -2 -[address] 79 SS [...] 0 DE RA [address] [place] 6 PH EP DE AR HE MA N 10 CY A MG OF TA CY BL NT ET HI AN A LI 00 08 10 2 30 30 EA 18 BE Ac SI 17 -2 -[address] 79 SS ti NO 23 0- 8- 00 SI 09 ON ve MT 75 20 20 DE IL 96 10 [...] MC 80 7- 7- 00 SI 95 IL ve IN 00 20 20 DE E [...] BL CY ET NT HI AN A MT 37 08 09 2 30 30 EA [...] -2 -[address] 79 SS ti MT 30 0- 7- 00 SI 03 ON ve OL 73 20 20 DE OL [address] 0 PH EP TA AR HE RT MA N RA CY A TE OF 50 CY MG NT HI TA AN B A AL 00 08 09 2 90 30 EA 18 BE Ac MT 78 -2 -[address] 79 SS [...] 0- 7- 00 SI 09 ON ve MT 75 20 20 [place] [address] 0 PH EP 10 AR HE MA N MG CY A TA OF BL ET CY NT HI AN A MT 37 08 08 2 30 30 EA [...] -2 -[address] 79 SS ti MT 30 0- 0- 00 SI 03 ON ve OL 73 20 20 DE OL [address] 0 PH EP TA AR HE RT MA N RA CY A TE OF 50 CY MG NT HI TA AN B A AL 00 08 08 2 90 30 EA 18 BE Ac MT 78 -2 -[address] 79 SS [...] 0 DE RA [address] [place] 6 PH EP DE AR HE MA N 10 CY A MG OF TA CY BL NT ET HI AN A LI 00 08 08 2 30 30 EA 18 BE Ac SI 17 -2 -[address] 79 SS ti NO 23 0- 0- 00 SI 09 ON ve MT 75 20 20 DE IL 96 10 [...] MC 80 9- 0- 00 SI 54 IL ve IN 00 20 20 DE E OL 31 10 10 JR ON 5 PH E AR WI 0. MA LL 02 CY IA 5% M OF F CR EA CY M NT HI AN A AL 00 05 07 2 90 30 EA 17 BE Ac MT 78 -1 -[address] 66 SS [...] -1 -[address] 66 SS ti MT 30 9 9- 00 SI 22 ON ve OL 73 20 20 DE OL [address] 0 PH EP TA AR HE RT MA N RA CY A TE OF 50 CY MG NT HI TA AN B A MT 37 05 07 2 30 30 EA [...] ST 06 KE ti TO SI 29 IL ve R 75 20 20 DE E 10 19 10 10 JR 0 PH MG AR WI MA LL TA CY IA BL M ET OF F CY NT HI AN A LI 00 06 07 2 30 30 EA 18 MC Ac SI 17 -2 -[address] 06 KE ti NO 23 SI 30 IL ve MT 75 20 20 DE E IL 96 10 10 JR 0 PH 10 AR WI MA LL MG CY IA M TA OF F BL ET CY NT HI AN A CR 00 06 06 2 30 30 EA 18 MC Ac ES 31 -2 -[address] 06 KE ti TO SI 29 IL ve R 75 20 20 DE E 10 19 10 10 JR 0 PH MG AR WI MA LL TA CY IA BL M ET OF F CY NT HI AN A LI 00 06 06 2 30 30 EA 18 MC Ac SI 17 -2 -[address] 06 KE ti NO 23 SI 30 IL ve MT 75 20 20 DE E IL 96 10 10 JR 0 PH 10 AR WI MA LL MG CY IA M TA OF F BL ET CY NT HI AN A AL 00 05 06 2 90 30 EA 17 BE Ac MT 78 -1 -[address] 66 SS [...] -1 -[address] 66 SS ti MT 30 00 SI 22 ON ve OL 73 20 20 DE OL [address] 0 PH EP TA AR HE RT MA N RA CY A TE OF 50 CY MG NT HI TA AN B A MT 37 05 06 2 30 30 EA [...] 43 KE ti NO 23 SI 61 IL ve MT 75 20 20 DE E IL 96 10 10 JR 0 PH 10 AR WI MA LL MG CY IA M TA OF F BL ET CY NT HI AN A CR 00 02 05 3 30 30 EA 16 MC Ac ES 31 -1 -[address] 43 KE ti TO 00 SI 62 IL ve R 75 20 20 DE E [...] -1 -[address] 66 SS ti MT 30 SI 22 ON ve OL 73 20 20 DE OL [address] 0 PH EP TA AR HE RT MA N RA CY A TE OF 50 CY MG NT HI TA AN B A MT 37 05 05 2 30 30 EA [...] 0 DE RA [address] [place] 6 PH EP DE AR HE MA N 10 CY A MG OF TA CY BL NT ET HI AN A AL 00 05 05 2 90 30 EA 17 BE Ac MT 78 -1 -[address] 66 SS [...] 0 DE RA [address] [place] 6 PH EP DE AR HE MA N 10 CY A MG OF TA CY BL NT ET HI AN A MT 37 01 04 3 30 30 EA 16 MC Ac IL 00 -1 -[address] 00 KE ti OS 00 SI 11 IL ve EC 45 20 20 DE E 50 10 10 JR OT 2 PH C AR WI 20 MA LL .6 CY IA M MG OF F TA CY BL NT ET HI AN A ME 00 01 04 3 60 30 EA 16 MC Ac TO 09 -1 -[address] 00 KE ti MT 30 SI 13 IL ve OL 73 20 20 DE E OL 31 10 10 JR 0 PH TA AR WI RT MA LL RA CY IA TE M OF F 50 CY MG NT HI TA AN B A LI 00 02 04 3 30 30 EA 16 MC Ac SI 17 -1 -[address] 43 KE ti NO 23 SI 61 IL ve MT 75 20 20 DE E IL 96 10 10 JR 0 PH 10 AR WI MA LL MG CY IA M TA OF F BL ET CY NT HI AN A CR 00 02 04 3 30 30 EA 16 MC Ac ES 31 -1 -[address] 43 KE ti TO 00 SI 62 IL ve R 75 20 20 DE E 10 19 10 10 JR 0 PH MG AR WI MA LL TA CY IA BL M ET OF F CY NT HI AN A AL 00 02 04 2 90 30 EA 16 MC Ac MT 78 -2 -[address] 45 KE ti AZ 11 SI 59 IL ve OL 07 20 20 DE E AM 90 10 10 JR 1 1 PH AR WI MG MA LL CY IA TA M BL OF F ET CY NT HI AN A 00 02 04 2 60 30 EA 16 MC Ac 59 -2 -[address] 45 KE ti 10 0 SI 60 IL ve 50 20 20 DE E 30 10 10 JR 1 PH AR WI MA LL CY IA M OF F CY NT HI AN A TR 65 02 04 2 90 30 EA 16 MC Ac AM 16 -2 -[address] 45 KE ti AD 20 0 SI 61 IL ve OL 62 20 20 DE E 71 10 10 JR HC 1 PH L AR WI 50 MA LL CY IA MG M OF F TA BL CY ET NT HI AN A TR 00 04 04 1 60 15 EA 17 MC Ac IA 16 -1 -[address] 25 KE ti MC 80 SI 54 IL ve IN 00 20 20 DE E OL 31 10 10 JR ON 5 PH E AR [place] 0. MA LL 02 CY IA 5% M OF F CR EA CY M NT HI AN A 00 02 03 2 60 30 EA 16 MC Ac 59 -2 -[address] 45 KE ti 10 0 SI 60 IL ve 50 20 20 DE E 30 10 10 JR 1 PH AR [place] MA LL CY IA M OF F CY NT HI AN A ME 16 10 03 2 12 30 EA 14 BE Ac TO 71 -1 -[address] 72 SS ti CL 40 SI 19 ON ve OP 06 20 20 0 DE RA [address] [place] 6 PH EP DE AR HE MA N 10 CY A MG OF TA CY BL NT ET HI AN A MT 37 01 03 3 30 30 EA 16 MC Ac IL 00 -1 -[address] 00 KE ti OS 00 SI 11 IL ve EC 45 20 20 DE E 50 10 10 JR OT 2 PH C AR WI 20 MA LL .6 CY IA M MG OF F TA CY BL NT ET HI AN A ME 00 01 03 3 60 30 EA 16 MC Ac TO 09 -1 -[address] 00 KE ti MT 30 SI 13 IL ve OL 73 20 20 DE E OL 31 10 10 JR 0 PH TA AR WI RT MA LL RA CY IA TE M OF F 50 CY MG NT HI TA AN B A LI 00 02 03 3 30 30 EA 16 MC Ac SI 17 -1 -[address] 43 KE ti NO 23 SI 61 IL ve MT 75 20 20 DE E IL 96 10 10 JR 0 PH 10 AR WI MA LL MG CY IA M TA OF F BL ET CY NT HI AN A CR 00 02 03 3 30 30 EA 16 MC Ac ES 31 -1 -[address] 43 KE ti TO 00 SI 62 IL ve R 75 20 20 DE E 10 19 10 10 JR 0 PH MG AR WI MA LL TA CY IA BL M ET OF F CY NT HI AN A AL 00 02 03 2 90 30 EA 16 MC Ac MT 78 -2 -[address] 45 KE ti AZ 11 0 SI 59 IL ve OL 07 20 20 DE E AM 90 10 10 JR 1 1 PH AR WI MG MA LL CY IA TA M BL OF F ET CY NT HI AN A TR 65 02 03 2 90 30 EA 16 MC Ac AM 16 -2 -[address] 45 KE ti AD 20 0- SI 61 IL ve OL 62 20 20 DE E 71 10 10 JR HC 1 PH L AR WI 50 MA LL CY IA MG M OF F TA BL CY ET NT HI AN A TR 00 10 02 02 30 10 EA 14 MC Ac IA 16 -1 -[address] 73 KE ti MC 80 7 6 00 SI 69 IL ve IN 00 20 20 DE E [...] 0 DE RA [address] IL 6 PH EP DE AR HE MA N 10 CY A MG OF CY TA NT BL HI ET AN A MT 37 01 02 01 30 30 EA 16 MC Ac IL 00 -1 -[address] 00 KE ti OS 00 8 6 SI 11 IL ve EC 45 20 20 DE E 50 10 10 JR OT 2 PH C AR WI 20 MA LL .6 CY IA M MG OF F CY TA NT BL HI ET AN A ME 00 01 02 01 60 30 EA 16 MC Ac TO 09 -1 -[address] 00 KE ti MT 30 8- 6 00 SI 13 IL ve OL 73 20 20 DE E OL 31 10 10 JR 0 PH TA AR WI RT MA LL RA CY IA TE M OF F 50 CY NT MG HI AN TA A B LI 00 02 00 30 30 EA 16 BE Ac SI 17 -1 -[address] 43 SS ti NO 23 SI 61 ON ve MT 75 20 20 [place] [address] 0 PH EP 10 AR HE MA N MG CY A TA OF BL CY ET NT HI AN A CR 00 02 02 00 30 30 EA 16 MC Ac ES 31 -1 -[address] 43 KE ti TO 00 SI 62 IL ve R 75 20 20 DE E 10 19 10 10 JR 0 PH MG AR WI MA LL TA CY IA BL M ET OF F CY NT HI AN A TR 65 01 01 00 90 30 EA 16 MC Ac AM 16 -1 -[address] 00 KE ti AD 20 8 SI 09 IL ve OL 62 20 20 DE E [...] ST 00 KE ti 10 SI 10 IL ve 50 20 20 DE E 30 10 10 JR 1 PH AR [place] MA LL CY IA M OF F CY NT HI AN A MT 37 01 01 00 30 30 EA 16 MC Ac IL 00 -1 -[address] 00 KE ti OS 00 SI 11 IL ve EC 45 20 20 DE E 50 10 10 JR OT 2 PH C AR WI 20 MA LL .6 CY IA M MG OF F CY TA NT BL HI ET AN A ME 00 11 09 00 60 30 EA 16 MC Ac TO 09 -1 -[address] 00 KE ti MT 30 SI 13 IL ve OL 73 20 20 DE E OL 31 10 10 JR 0 PH TA AR WI RT MA LL RA CY IA TE M OF F 50 CY NT MG HI AN TA A B LI 00 10 02 30 30 EA 14 BE Ac SI 17 -1 -[address] 73 SS ti NO 23 SI 72 ON ve MT 75 20 20 [place] [address] 0 PH EP 10 AR HE MA N MG CY A TA OF BL CY ET NT HI AN A AL 00 01 01 00 90 30 EA 16 MC Ac MT 78 -1 -[address] 00 KE ti AZ 11 8 8 00 SI 12 IL ve OL 07 20 20 DE E AM 90 10 10 JR 1 1 PH AR WI MG MA LL CY IA TA M BL OF F ET CY NT HI AN A MT 37 10 12 02 30 30 EA 14 MC Ac IL 00 -1 -[address] 73 KE ti OS 00 7 SI 64 IL ve EC 45 20 20 DE E 50 09 09 JR OT 2 PH C AR WI 20 MA LL .6 CY IA M MG OF F CY TA NT BL HI ET AN A TR 65 10 12 02 90 30 EA 14 MC Ac AM 16 -1 -[address] 73 KE ti AD 20 7 SI 66 IL ve OL 62 20 20 DE E 71 09 09 JR HC 1 PH L AR WI 50 MA LL CY IA MG M OF F TA CY BL NT ET HI AN A ME 00 10 12 00 60 30 EA 14 BE Ac TO 09 -1 -[address] 73 SS ti MT 30 SI 71 ON ve OL 73 20 20 DE OL [address] 0 PH EP TA AR HE RT MA N RA CY A TE OF 50 CY NT MG HI AN TA A B 00 12 12 00 60 30 EA 15 MC Ac 59 -1 -[address] 61 KE ti 10 SI 52 IL ve 50 20 20 DE E 30 [...] NO 23 7 SI 72 ON ve MT 75 20 20 [place] [address] 0 PH EP 10 AR HE MA N MG CY A TA OF BL CY ET NT HI AN A AL 00 10 12 02 90 30 EA 14 MC Ac MT 78 -1 -[address] 73 KE ti AZ 11 7- 1- 00 SI 67 IL ve OL 07 20 20 DE E AM 90 09 09 JR 1 1 PH AR WI MG MA LL CY IA TA M BL OF F ET CY NT HI AN A TR 00 10 12 01 30 10 EA 14 MC Ac IA 16 -1 -[address] 73 KE ti MC 80 7- 7- 00 SI 69 IL ve IN 00 20 20 DE E OL 31 09 09 JR ON 5 PH E AR WI 0. MA LL 02 CY IA 5% M OF F CR CY EA NT M HI AN A 00 11 12 00 60 30 EA 15 MC Ac 59 -1 -[address] 17 KE ti 10 7- 3- 00 SI 53 IL ve 50 20 20 DE E 30 [...] ET OF CY NT HI AN A MT 37 10 12 30 30 EA 14 MC Ac IL 00 -1 -[address] 73 KE ti OS 00 7- 3- 00 SI 64 IL ve EC 45 20 20 DE E 50 09 09 JR OT 2 PH C AR WI 20 MA LL .6 CY IA M MG OF F CY TA NT BL HI ET AN A TR 65 10 12 01 90 30 EA 14 Ac AM 16 -1 -[address] 73 KE ti AD 20 7- 3- 00 SI 66 IL ve OL 62 20 20 DE E 71 09 09 JR HC 1 PH L AR WI 50 MA LL CY IA MG M OF F TA CY BL NT ET HI AN A LI 00 10 12 00 30 30 EA 14 BE Ac SI 17 -1 -[address] 73 SS ti NO 23 7- 3- 00 SI 72 ON ve MT 75 20 20 [place] [address] 0 PH EP 10 AR HE MA N MG CY A TA OF BL CY ET NT HI AN A AL 00 10 12 01 90 30 EA 14 MC Ac MT 78 -1 -[address] 73 KE ti AZ 11 7- 3- 00 SI 67 IL ve OL 07 20 20 DE E AM 90 09 09 JR 1 1 PH AR WI MG MA LL CY IA TA M BL OF F ET CY NT HI AN A MT 37 10 11 00 30 30 EA 14 MC Ac IL 00 -1 -[address] 73 KE ti OS 00 7- 5- 00 SI 64 IL ve EC 45 20 20 DE E 50 09 09 JR OT 2 PH C AR WI 20 MA LL .6 CY IA M MG OF F CY TA NT BL HI ET AN A AL 00 10 11 00 90 30 EA 14 MC Ac MT 78 -1 -[address] 73 KE ti AZ 11 7- 5- 00 SI 67 IL ve OL 07 20 20 DE E AM 90 09 09 JR 1 1 PH AR WI MG MA LL CY IA TA M BL OF F ET CY NT HI AN A TR 65 10 11 00 90 30 EA 14 MC Ac AM 16 -1 -[address] 73 KE ti AD 20 7- 5- 00 SI 66 IL ve OL 62 20 20 DE E 71 09 09 JR HC 1 PH L AR WI 50 MA LL CY IA MG M OF F TA CY BL NT ET HI AN A TR 00 10 11 00 30 10 EA 14 MC Ac IA 16 -1 -[address] 73 KE ti MC 80 7- 5- 00 SI 69 IL ve IN 00 20 20 DE E OL 31 09 09 JR ON 5 PH E AR [place] 0. MA LL 02 CY IA 5% M OF F CR CY EA NT M HI AN A DO 53 10 11 00 20 10 EA 14 MC Ac XY 48 -1 -[address] 73 KE ti CY 90 7- 5- 00 SI 75 IL ve CL 11 20 20 DE E IN 90 09 09 JR E 5 PH HY AR WI CL MA LL AT CY IA E M 10 OF F 0 CY MG NT HI CA AN P A 00 10 11 00 60 30 EA 14 MC Ac 59 -1 -[address] 73 KE ti 10 7- 5- 00 SI 65 IL ve 50 20 20 DE E 30 [...] 0 DE RA [address] IL 6 PH EP DE AR HE MA N 10 CY A MG OF CY TA NT BL HI ET AN A LI 00 05 10 05 30 30 EA 12 BE Ac SI 17 -1 -[address] 81 SS ti NO 23 9- 2- 00 SI 07 ON ve MT 75 20 20 DE [place] [address] 0 PH EP 10 AR HE MA N MG CY A TA OF BL CY ET NT HI AN A ME 00 05 10 04 60 30 EA 12 BE Ac TO 09 -1 -[address] 81 SS ti MT 30 9- 2- 00 SI 04 ON [...] 00 90 30 EA 14 MC Ac MT 78 -1 -[address] 29 KE ti AZ 11 7 4 SI 71 IL ve OL 07 20 20 DE E AM 90 09 09 JR 1 1 PH AR WI MG MA LL CY IA TA M BL OF F ET CY NT HI AN A MT 37 06 09 03 30 30 EA 13 MC Ac IL 00 -1 -[address] 20 KE ti OS 00 SI 40 IL ve EC 45 20 20 DE E 50 09 09 JR OT 2 PH C AR WI 20 MA LL .6 CY IA M MG OF F CY TA NT BL HI ET AN A 00 09 00 60 30 EA 14 MC Ac 59 -1 -[address] 29 KE ti 10 7 SI 72 IL ve 50 20 20 DE E 30 09 09 JR 1 PH AR WI MA LL CY IA M OF F CY NT HI AN A TR 65 09 09 00 90 30 EA 14 MC Ac AM 16 -1 -[address] 29 KE ti AD 20 - 4 SI 73 IL ve OL 62 20 20 DE E [...] 0 DE RA [address] IL 6 PH EP DE AR HE MA N 10 CY A MG OF CY TA NT BL HI ET AN A TR 00 09 00 15 5 EA 14 MC Ac IA 16 -1 -[address] 29 KE ti MC 80 7- 4- 00 SI 74 IL ve IN 00 20 20 DE E [...] 9- 4- 00 SI 07 ON ve MT 75 20 20 DE [place] [address] 0 PH EP 10 AR HE MA N MG CY A TA OF BL CY ET NT HI AN A ME 00 05 09 03 60 30 EA 12 BE Ac TO 09 -1 -[address] 81 SS ti MT 30 9- 4- 00 SI 04 ON [...] 9- 7- 00 SI 07 ON ve MT 75 20 20 [place] [address] 0 PH EP 10 AR HE MA N MG CY A TA OF BL CY ET NT HI AN A AL 00 08 08 00 90 30 EA 13 MC Ac MT 78 -1 -[address] 86 KE ti AZ 11 7- 7- 00 SI 90 IL ve OL 07 20 20 DE E AM 90 09 09 JR 1 1 PH AR WI MG MA LL CY IA TA M BL OF F ET CY NT HI AN A 00 08 08 00 60 30 EA 13 MC Ac 59 -1 -[address] 86 KE ti 10 7- 7- 00 SI 89 IL ve 50 20 20 DE E 30 [...] -1 -[address] 81 SS ti MT 30 9- 7- 00 SI 04 ON [...] 0 DE RA [address] IL 6 PH EP DE AR HE MA N 10 CY A MG OF CY TA NT BL HI ET AN A MT 37 06 08 02 30 30 EA 13 MC Ac IL 00 -1 -[address] 20 KE ti OS 00 9- 7- 00 SI 40 IL ve EC 45 20 20 DE E [...] 00 90 30 EA 13 MC Ac MT 78 -1 -[address] 53 KE ti AZ 11 7- 0- 00 SI 33 IL ve OL 07 20 20 DE E [...] 0 DE RA [address] IL 6 PH EP DE AR HE MA N 10 CY A MG OF CY TA NT BL HI ET AN A ME 00 05 07 01 60 30 EA 12 BE Ac TO 09 -1 -[address] 81 SS ti MT 30 9- 0- 00 SI 04 ON ve OL 73 20 20 DE OL [address] 0 PH EP TA AR HE RT MA N RA CY A TE OF 50 CY NT MG HI AN TA A B MT 37 06 07 01 30 30 EA 13 MC Ac IL 00 -1 -[address] 20 KE ti OS 00 9- 0- 00 SI 40 IL ve EC 45 20 20 DE E 50 09 09 JR OT 2 PH C AR WI 20 MA LL .6 CY IA M MG OF F CY TA NT BL HI ET AN A TR 65 07 07 00 90 30 EA 13 MC Ac AM 16 -1 -[address] 53 KE ti AD 20 7- 0- 00 SI 35 IL ve OL 62 20 20 DE E 71 09 09 JR HC 1 PH L AR WI 50 MA LL CY IA MG M OF F TA CY BL NT ET HI AN A LI 00 05 07 02 30 30 EA 12 BE Ac SI 17 -1 -[address] 81 SS ti NO 23 9- 0- 00 SI 07 ON ve MT 75 20 20 [place] [address] 0 PH EP 10 AR HE MA N MG CY A TA OF BL CY ET NT HI AN A 00 07 07 00 60 30 EA 13 MC Ac 59 -1 -[address] 53 KE ti 10 7- 0- 00 SI 34 IL ve 50 20 20 DE E 30 [...] ti 10 9- 2- 00 SI 38 IL ve 50 20 20 DE E 30 09 09 JR 1 PH AR WI MA LL CY IA M OF F CY NT HI AN A ME 00 05 07 00 60 30 EA 12 BE Ac TO 09 -1 -[address] 81 SS ti MT 30 9- 2- 00 SI 04 ON ve OL 73 20 20 DE OL [address] 0 PH EP TA AR HE RT MA N RA CY A TE OF 50 CY NT MG HI AN TA A B MT 37 06 07 00 30 30 EA 13 MC Ac IL 00 -1 -[address] 20 KE ti OS 00 9- 2- 00 SI 40 IL ve EC 45 20 20 DE E 50 09 09 JR OT 2 PH C AR WI 20 MA LL .6 CY IA M MG OF F CY TA NT BL HI ET AN A AL 00 06 07 00 90 30 EA 13 MC Ac MT 78 -1 -[address] 20 KE ti AZ 11 9- 2- 00 SI 37 IL ve OL 07 20 20 DE E [...] AD 50 9- 2- 00 SI 39 IL ve OL 17 20 20 DE E 10 09 09 JR HC 8 PH L AR WI 50 MA LL CY IA MG M OF F TA CY BL NT ET HI AN A LI 00 05 07 01 30 30 EA 12 BE Ac SI 17 -1 -[address] 81 SS ti NO 23 9 2 SI 07 ON ve MT 75 20 20 DE IL 96 09 [...] 00 90 30 EA 12 MC Ac MT 78 -1 -[address] 80 KE ti AZ 11 9 4 00 SI 89 IL ve OL 07 20 20 DE E AM 90 09 09 JR 1 1 PH AR WI MG MA LL CY IA TA M BL OF F ET CY NT HI AN A MT 37 02 06 03 30 30 EA 11 MC Ac IL 00 -1 -[address] 51 KE ti OS 00 7- 4- 00 SI 23 IL ve EC 45 20 20 DE E 50 09 09 JR OT 2 PH C AR WI 20 MA LL .6 CY IA M MG OF F CY TA NT BL HI ET AN A ME 00 02 06 03 60 30 EA 11 TORRES Ac TO 09 -1 -[address] 51 RV ti MT 30 7- 4- 00 SI 57 EY ve OL 73 20 20 DE OL 31 09 09 LORRIE 0 PH DI TA AR RT MA RA CY TE OF 50 CY NT MG HI AN TA A B 00 05 06 00 60 30 EA 12 MC Ac 59 -1 -[address] 80 KE ti 10 9- 4- 00 SI 88 IL ve 50 20 20 DE E 30 [...] 0 DE RA [address] IL 6 PH EP DE AR HE MA N 10 CY A MG OF CY TA NT BL HI ET AN A LI 00 05 06 00 30 30 EA 12 BE Ac SI 17 -1 -[address] 81 SS ti NO 23 9- 4- 00 SI 07 ON ve MT 75 20 20 DE IL 96 09 [...] 00 90 30 EA 12 BE Ac MT 78 -1 -[address] 39 SS ti AZ 11 8- 7- 00 SI 75 ON ve OL 07 20 20 DE AM [address] 1 1 PH EP AR HE MG MA N CY A TA BL OF ET CY NT HI AN A MT 37 02 04 02 30 30 EA 11 MC Ac IL 00 -1 -[address] 51 KE ti OS 00 7- 3- 00 SI 23 IL ve EC 45 20 20 DE E [...] -1 -[address] 51 RV ti MT 30 7- 3- 00 SI 57 EY [...] -1 -[address] 51 RV ti MT 30 7- 6- 00 SI 57 EY ve OL 73 20 20 DE OL 31 09 09 LORRIE 0 PH DI TA AR RT MA RA CY TE OF 50 CY NT MG HI AN TA A B MT 37 02 03 01 30 30 EA 11 MC Ac IL 00 -1 -[address] 51 KE ti OS 00 7- 6- 00 SI 23 IL ve EC 45 20 20 DE E [...] 00 90 30 EA 11 MC Ac MT 78 -1 -[address] 96 KE ti AZ 11 9- 6- 00 SI 91 IL ve OL 07 20 20 DE E [...] 3- 2- 00 SI 95 EY ve MT 02 20 20 DE ED 20 09 09 IL NI 7 PH CH SO AR AE LO MA L NE CY S 4 OF MG CY NT DO HI SE AN PK A 60 02 03 01 20 10 EA 11 GA Ac 50 -2 -[address] 58 IN ti 51 3- 2- 00 SI 96 EY ve 30 20 20 DE 90 09 09 IL 1 PH CH AR AE MA L CY S OF CY NT HI AN A 60 02 03 00 20 10 EA 11 GA Ac 50 -2 -[address] 58 IN ti 51 3- 2- 00 SI 96 EY ve 30 20 20 DE 90 09 09 IL 1 PH CH AR AE MA L CY S OF CY NT HI AN A ME 00 02 02 00 60 30 EA 11 TORRES Ac TO 09 -1 -[address] 51 RV ti MT 30 7- 6- 00 SI 57 EY ve OL 73 20 20 DE OL 31 09 09 LORRIE 0 PH DI TA AR RT MA RA CY TE OF 50 CY NT MG HI AN TA A B AL 00 02 02 00 90 30 EA 11 MC Ac MT 78 -1 -[address] 51 KE ti AZ 11 7- 6- 00 SI 22 IL ve OL 07 20 20 DE E AM 90 09 09 JR 1 1 PH AR WI MG MA LL CY IA TA M BL OF F ET CY NT HI AN A MT 37 02 02 00 30 30 EA [...] BL CY ET NT HI AN A MT 37 11 01 01 30 30 EA [...] 02 90 30 EA 10 MC Ac MT 78 -1 -[address] 31 KE ti AZ 11 7- 0- 00 SI 41 IL ve OL 07 20 20 DE E AM 90 08 09 JR 1 1 PH AR WI MG MA LL CY IA TA M BL OF F ET CY NT HI AN A ME 00 11 01 01 60 30 EA 10 BE Ac TO 09 -1 -[address] 31 SS ti MT 30 7- 0- 00 SI 49 ON [...] CY EA NT M HI AN A MT 37 11 01 00 30 30 EA [...] 01 90 30 EA 10 MC Ac MT 78 -1 -[address] 31 KE ti AZ 11 7- 1- 00 SI 41 IL ve OL 07 20 20 DE E AM 90 08 09 JR 1 1 PH AR WI MG MA LL CY IA TA M BL OF F ET CY NT HI AN A ME 00 11 01 00 60 30 EA 10 BE Ac TO 09 -1 -[address] 31 SS ti MT 30 7- 1- 00 SI 49 ON [...] NO 23 7- 1- 00 SI 48 IL ve MT 75 20 20 DE E IL 96 [...] ti 10 7- 8- 00 SI 55 IL ve 50 20 20 DE E 30 08 08 JR 1 PH AR WI MA LL CY IA M OF F CY NT HI AN A AL 00 11 12 00 90 30 EA 10 MC Ac MT 78 -1 -[address] 31 KE ti AZ 11 7- 4- 00 SI 41 IL ve OL 07 20 20 DE E [...] CY BL NT ET HI AN A MT 37 11 12 00 30 30 EA [...] NO 23 4- 0- 00 SI 66 IL ve MT 75 20 20 DE E IL 96 [...] 00 12 4 EA 10 TORRES Ac MT 78 -1 -[address] 27 RV [...] -1 -[address] 27 KE ti MT 30 4- 0- 00 SI 68 IL ve OL 73 20 20 DE E [...] 00 90 30 EA 99 No Ac MT 78 -1 -[address] 84 t [...] -1 -[address] 84 t ti MT 30 3- 3- 00 SI 92 Av [...] 3- 3- 00 SI 91 Av ve MT 75 20 20 DE ai IL 96 [...] 2- 6- 00 SI 22 Av ve MT 75 20 20 DE ai IL 96 [...] 00 90 30 EA 99 No Ac MT 78 -1 -[address] 46 t ti AZ 11 3- 6- 00 SI 93 Av ve OL 07 20 20 DE ai AM 90 08 08 la 1 1 PH bl AR e MG MA CY TA BL OF ET CY NT HI AN A MT 37 07 09 01 30 30 EA [...] -1 -[address] 35 t ti MT 30 2- 6- 00 SI 19 Av [...] -1 -[address] 35 t ti MT 30 2- 8- 00 SI 19 Av [...] 2- 8- 00 SI 22 Av ve MT 75 20 20 DE ai IL 96 [...] DE ai RA 20 08 08 la IL 6 PH bl DE AR e MA [...] 00 90 30 EA 99 No Ac MT 78 -1 -[address] 04 t [...] CY OF CY NT HI AN A MT 37 07 08 00 30 30 EA [...] 00 90 30 EA 98 No Ac MT 78 -1 -[address] 69 t [...] -1 -[address] 35 t ti MT 30 2- 7- 00 SI 19 Av [...] 2- 7- 00 SI 22 Av ve MT 75 20 20 DE ai IL 96 08 08 la 0 PH bl 10 AR e MA MG CY TA OF BL CY ET NT HI AN A AL 00 06 07 00 90 30 EA 98 No Ac MT 78 -1 -[address] 35 t [...] -1 -[address] 35 t ti MT 30 2- 3- 00 SI 19 Av [...] 2- 3- 00 SI 22 Av ve MT 75 20 20 DE ai IL 96 [...] 4- 2- 00 SI 96 Av ve MT 75 20 20 DE ai IL 96 [...] 00 90 30 EA 97 No Ac MT 78 -1 -[address] 98 t [...] 4- 4- 00 SI 96 Av ve MT 75 20 20 DE ai IL 96 [...] 00 90 30 EA 97 No Ac MT 78 -1 -[address] 60 t [...] DE ai ZA 80 08 08 la MT 1 PH bl IN AR e E MA 10 CY MG OF CY TA NT BL HI ET AN A NA 00 02 04 01 60 30 EA 96 No Ac MT 09 -0 -[address] 62 t [...] 00 90 30 EA 97 No Ac MT 78 -1 -[address] 17 t [...] 5- 7- 00 SI 36 Av ve MT 75 20 20 DE ai IL 96 [...] 00 90 30 EA 96 No Ac MT 78 -1 -[address] 75 t ti AZ 11 1- 6- 00 SI 45 Av ve OL 07 20 20 DE ai AM 90 08 08 la 1 1 PH bl AR e MG MA CY TA BL OF ET CY NT HI AN A NA 00 02 03 00 60 30 EA 96 No Ac MT 09 -0 -[address] 62 t [...] 5- 6- 00 SI 36 Av ve MT 75 20 20 DE ai IL 96 [...] 00 90 30 EA 96 No Ac MT 78 -1 -[address] 31 t [...] 5- 4- 00 SI 36 Av ve MT 75 20 20 DE ai IL 96 [...] Procedure DOS Code Location Performer Comment RADEX 59181 [facility] SPINE 7 [place] LUM[facility] ORTHOPAED AL 2/3 IC VIEWS CULTURE 11963 COMBINED COMBINED BACTERIAL 7 PHYSICIAN PHYSICIAN S LA S LA QUANTTATI VE COLONY COUNT URINE URNLS DIP 35359 [place] [facility]ESSON 7 [place] STICK/TAB INTERNAL LET RGNT MED NON-AUTO W/O MICRSCP DRUG TEST 99882 [facility] PRSMV 7 [facility] QUAL DIR INC INC OPTICAL OBS PER DAY DRUG 59326 [facility] SCREENING 7 [facility] OPIOIDS INC INC & OPIATE ANALOGS 5/MORE DRUG 03731 [facility] SCREENING 7 [facility] INC INC BENZODIAZ EPINES 1-12 DRUG 19563 [facility] SCREENING 7 [facility] INC INC [place]O IDS [place]URAL NJX 8[address]83 ANITA BUX DX/THER 7 MD ROSA, SBST PSC INTRLMNR LMBR/SAC W/IMG GDN COLLECTIO 99534 [facility] N VENOUS 7 [facility] BLOOD INC INC VENIPUNCT URE BASIC 42403 [facility] METABOLIC 7 [facility] PANEL INC INC CALCIUM TOTAL INJECT SI [address] ANITA DUFF JOINT 7 MD ROSA, ARTHRGRP PSC Y&/ANES/S TEROID W/MICHELLE UNCLASSIF J3490 [facility] W[facility] IED DRUGS 7 [facility] INC INC UNCLASSIF J3490 [facility] IED DRUGS 7 [facility] INC MYOCARDIA 56399 [facility] WALL[facility] L SPECT 7 [facility] MULTIPLE INC INC STUDIES ECHO 84294 MADISON WALLACE TTHRC R-T 7 [facility] 2D INC INC W/WOM-MOD E COMPL SPEC&COLR D DUPLEX 44082 [facility] WALLACE SCAN 7 [facility] EXTRACRAN INC INC IAL ART COMPL BI STUDY CV STRS 40425 [facility] WALLACE TST 7 [facility] XERS&/OR INC INC RX CONT ECG TRCG ONLY CV STRS 60035 Dustin COURTNEY TST 7 PHYSICIAN XERS&/OR S GROUP RX CONT ECG W/O I&R COLLECTIO 64830 [facility] N VENOUS 7 [facility] BLOOD INC INC VENIPUNCT URE DRUG TEST 00739 M[facility] WALLACE PRSMV 7 [facility] QUAL DIR INC INC OPTICAL OBS PER DAY LIPID 71778 MAD[facility] WALLACE PANEL 7 [facility] INC INC ECG 60047 MAD[facility] WALLACE ROUTINE 7 [facility] ECG INC INC W/LEAST 12 LDS TRCG ONLY W/O I&R CREATINE 50292 MADISON WALLACE KINASE 6 [facility] [place] [address] MADISON WALLACE TROPONIN 6 [facility] QUANTITAT INC INC ANUPAMA SMR PRIM 74310 MAD[facility] WALLACE SRC 6 [facility] GRAM/GIEM INC INC SA STAIN BCT FUNGI/ADAMA L RADIOLOGI 34989 M[facility] WALLACE C EXAM 6 [facility] CHEST 2 INC INC VIEWS FRONTAL&L ATERAL CREATINE 63552 MADISON WALLACE KINASE MB 6 [facility] FRACTION INC INC ONLY HOSPITAL G0378 M[facility] WALLACE OBSERVATI 6 [facility] ON INC INC SERVICE PER HOUR COLLECTIO 81856 [facility] WALLACE N VENOUS 6 [facility] BLOOD INC INC VENIPUNCT URE BLOOD 58388 MADISON WALLACE COUNT 6 [facility] COMPLETE INC INC AUTO&AUTO DIFRNTL WBC CUL BACT 22454 M[facility] WALLACE XCPT 6 [facility] URINE INC INC BLOOD/STO OL AEROBIC ISOL BASIC 20300 MADISON WALLACE METABOLIC 6 [facility] PANEL INC INC CALCIUM TOTAL THROMBOPL 67677 MADISON WALLACE ASTIN 6 [facility] TIME INC INC PARTIAL PLASMA/WH OLE BLOOD CULTURE 58110 M[facility] WALLACE BACTERIAL 6 [facility] BLOOD INC INC AEROBIC W/ID ISOLATES RADIOLOGI 77921 GEM SHIELDS C EXAM 6 MEDICAL CHEST 2 IMAGING VIEWS ASS FRONTAL&L ATERAL HOSPITAL G0378 [facility] W[facility] OBSERVATI 6 [facility] ON INC INC SERVICE PER HOUR COLLECTIO 61632 MADISON WALLACE N VENOUS 6 [facility] BLOOD INC INC VENIPUNCT URE COMPREHEN 99162 M[facility] WALL[facility] SIVE 6 [facility] METABOLIC INC INC PANEL CREATINE 34111 MAD[facility] WALLACE KINASE MB 6 [facility] [place] [address] M[facility]ALLACE LACTATE 6 [facility] INC INC PRESSURIZ 88993 M[facility] WALLACE ED/NONPRE 6 [facility] SSURIZED INC INC INHALATIO N TREATMENT THERAPEUT 49576 [facility] IC 6 [facility] INJECTION INC INC IV PUSH EACH NEW DRUG NATRIURET 47190 [facility] WALLACE IC 6 [facility] PEPTIDE INC INC BLOOD 07518 M[facility] WALLACE COUNT 6 [facility] COMPLETE INC INC AUTO&[place] [address] M[facility] WALLACE TROPONIN 6 [facility] QUANTITAT INC INC ANUPAMA ECG 11260 MADISON LAL ROUTINE 6 [facility] W/LEAST P 12 LDS I&R ONLY PROTHROMB 27780 MADISON WALLACE IN TIME 6 [facility] INC INC THER 52220 MAD[facility]ALLACE PROPH/DX 6 [facility] NJX IV INC INC PUSH SINGLE/1S T SBST/DRUG ECG 34447 MAD[facility] WALLACE ROUTINE 6 [facility] ECG INC INC W/LEAST 12 LDS TRCG ONLY W/O I&R CREATINE 06281 M[facility] WALLACE KINASE 6 [facility] TOTAL INC INC CULTURE 48878 COMBINED COMBINED BACTERIAL 6 PHYSICIAN PHYSICIAN S LA S LA QUANTTATI VE COLONY COUNT URINE BLOOD 37578 [facility] MANDUJANO MIS OCCULT 6 [facility] PEROXIDAS INTERNAL E ACTV MED QUAL FECES 1 DETER URNLS DIP 63428 [place] MANDUJANO MIS 6 [facility] STICK/TAB INTERNAL LET RGNT MED NON-AUTO W/O MICRSCP CYTP C/V 95951 [facility], PICKLESIM AUTO THIN 6 LLC ER JR DARIUSZ LYR PREPJ SCR MNL RESCR PHYS SCREENING G0202 [place] [address] MEDICAL MAMMOGRAP IMAGING HY NIESHA ASS INCL CAD WHEN PERFORMD DRUG TST G0477 COMBINED NATHANIEL PRESUMP;C 6 PHYSICIAN LEO PBL [place] [address] M[facility] MADISON HEAD/BRAI 6 [facility] N W/O INC INC CONTRAST MATERIAL URNLS DIP 27259 [facility]ACE 6 [facility] STICK/TAB INC INC LET REAGENT AUTO MICROSCOP Y REMOVAL 73338 [facility] VERGARA IMPACTED 6 PHYSICIAN TU CERUMEN S GROUP INSTRUMEN TATION UNILAT ECG RTN G0403 COMBINED COMBINED ECG W/12 6 PHYSICIAN PHYSICIAN LEADS SCR S LA S LA INIT PREVNTV PE W/I&R DRUG TST G0477 COMBINED COMBINED PRESUMP;C 6 PHYSICIAN PHYSICIAN PBL BEING S LA S LA READ DC OPT OBV ONLY NEEDLE 47231 [facility] EM[facility] EA 6 N EXTREMTY NEUROLOGY W/PARASPI NL AREA COMPLETE NERVE 35984 [facility] CALLY CONDUCTIO 6 N N STUDIES NEUROLOGY 9-10 STUDIES ANES 60272 [facility] UPPER GI 6 [place] SUKH ENDOSCOPY ANESTHESI PROXIMAL A TO DUODENUM EGD 45439 [facility] TOSHIA THO TRANSORAL 6 L SURGIAL BIOPSY SINGLE/[place] [address] CHIPPS VINCENT SURG 6 [facility] THOMAS PATHOLOGY DUBILIER GROSS&[place] [address] [facility] L[facility] GAMMAGLOB 5 KELTON KELTON ULIN IGA HOLDINGS HOLDINGS IGD IGG IGM EACH IMMUNOASS 83451 [facility] AY 5 KELTON KELTON ANALYTE HOLDINGS HOLDINGS QUAL/SEMI QUAL MULTIPLE STEP ECG 73207 [facility] SERA ROUTINE 5 EMERGENCY GREG ECG PHYS PSC W/LEAST 12 LDS I&R ONLY RADIOLOGI 21724 [facility] MONTANO C 5 RADIOLOGY SHANNON EXAMINATI ASSOC ON CHEST SINGLE VIEW FRONTAL COMPREHEN 55298 [facility] SIVE 5 [facility] METABOLIC INC INC PANEL RADEX 10572 M[facility] WALLACE FOOT 5 [facility] COMPLETE INC INC MINIMUM 3 VIEWS BLOOD 03600 [facility] WALLACE COUNT 5 [facility] COMPLETE INC INC AUTO&AUTO DIFRNTL WBC RADIOLOGI 58604 M[facility] WALLACE C 5 [facility] EXAMINATI INC INC ON TIBIA & FIBULA 2 VIEWS OPHTH 21154 [facility] MEDICAL 5 ANG ANG XM&EVAL COMPRHNSV ESTAB PT 1/> HOSPITAL 53378 [facility] DAY INTERNAL MANAGEMEN MED T 30 MIN/< INITIAL 04160 [facility] OBSERVATI 5 [facility] ON INTERNAL CARE/DAY MED 30 MINUTES ECG 52162 MADISON LAL ROUTINE 5 [facility] W/LEAST P 12 LDS I&[place] [address] [facility] ABDOMEN & 5 MEDICAL FAHEEM PELVIS IMAGING W/O ASS CONTRAST MATERIAL RADIOLOGI 81065 [place] AT[facility] ALL C EXAM 5 MEDICAL CHEST 2 IMAGING VIEWS ASS FRONTAL&L ATERAL PRESSURIZ 20330 MADISON WALLACE ED/NONPRE 5 [facility] SSURIZED INC INC INHALATIO N TREATMENT ANES 14659 [facility] OVIDIO TRANSURET 5 ANESTH HRAL OF THE W/URETHRO BLUE CYSTOSCOP Y NOS CYSTO 05403 MAD[facility] WALLACE CALIBRATI 5 [facility] HOSP ON DILAT INC INC URTL STRIX/ANN NOS HOSPITAL 39358 [place] [facility] DISCHARGE 5 [facility] DAY INTERNAL MANAGEMEN MED T 30 MIN/< INITIAL 36268 [facility] IN[facility]IENT 5 PHYSICIAN CAM CONSULT S GROUP NEW/ESTAB PT 55 MIN INITIAL 75567 [facility] 5 [facility] CARE/DAY INTER[place] [address] [place] [address] [place] [facility] ABDOM[facility] & 5 MEDICAL FAHEEM PELVIS IMAGING W/O ASS CONTRAST MATERIAL ECHO 68932 [facility] ROM 2D MEDICAL W/WOM-MOD G E COMPL SPEC&COLR D CV STRS 23266 [facility] TST 5 NE [facility]ALTH ROM XERS&/OR MEDICAL RX CONT G ECG I&R ONLY ECHO 71724 [facility] TTHRC R-T [address] [place] [address] 2D W/WOM-MOD E COMPL SPEC&COLR D CV STRS 59568 [facility] TST [address] [place] [address] XERS&/OR RX CONT ECG TRCG ONLY MRI 06400 G[facility] BECKER ABDOMEN 5 MEDICAL LA W/O IMAGING CONTRAST ASS MATERIAL BLOOD 68342 [facility] WALLACE COUNT 5 [facility] COMPLETE INC INC AUTO&AUTO DIFRNTL WBC COLLECTIO 08775 [facility] WALLACE N VENOUS 5 [facility] BLOOD INC INC VENIPUNCT URE COMPREHEN 66937 [facility]ALL[facility] SIVE 5 [facility] [address] [facility] WALL[facility] AMYLASE 5 [place] [address] [facility] WALLACE LIPASE 5 [facility] INC INC [place] [address] [facility] LO[facility] TRA SPINAL 5 [place] CANAL ORTHOPAED LUMBAR ICS [facility] W/O CONTRAST MATERIAL RADIOLOGI 83278 GEM BECKER C EXAM 5 MEDICAL LA CHEST 2 IMAGING VIEWS ASS FRONTAL&L ATERAL APPL 18540 M[facility] WALLACE MODALITY 5 [facility] 1/> AREAS INC INC ELEC STIMJ UNATTENDE D APPLICATI 96949 MAD[facility] WALLACE ON 5 [facility] MODALITY INC INC 1/> AREAS HOT/COLD PACKS APPL 59775 MADISON WALLACE MODALITY 5 [facility] 1/> AREAS INC INC ULTRASOUN D EA 15 MIN APPL 17662 MADISON WALLACE MODALITY 5 [facility] 1/> AREAS INC INC ULTRASOUN D EA 15 MIN APPL 81713 MADISON WALLACE MODALITY 5 [facility] 1/> AREAS INC INC ULTRASOUN D EA 15 MIN APPLICATI 53741 MADISON WALLACE ON 5 [facility] MODALITY INC INC 1/> AREAS HOT/COLD PACKS APPL 30588 MADISON WALLACE MODALITY 5 [facility] 1/> AREAS INC INC ELEC STIMJ UNATTENDE D APPL 85860 MADISON WALLACE MODALITY 5 [facility] 1/> AREAS INC INC ELEC STIMJ UNATTENDE D APPLICATI 39613 MAD[facility] WALLACE ON 5 [facility] MODALITY INC INC 1/> AREAS HOT/COLD PACKS APPL 71828 M[facility] WALLACE MODALITY 5 [facility] 1/> AREAS INC INC ULTRASOUN D EA 15 MIN LOCM Q9967 [facility] WALLACE 300-399 5 [facility] MG/ML INC [place] [address] [facility] ABDOMEN & 5 MEDICAL LA PELVIS IMAGING W/CONTRAS ASS T MATERIAL APPL 25149 M[facility] WALLACE MODALITY 5 [facility] 1/> AREAS INC INC ELEC STIMJ UNATTENDE D COLLECTIO 03567 MAD[facility] WALLACE N VENOUS 5 [facility] [place] [address] MAD[facility] WALLACE UREA 5 [facility] NITROGEN INC INC QUANTITAT ANUPAMA APPL 88211 MAD[facility] WALLACE MODALITY 5 [facility] 1/> AREAS INC INC ULTRASOUN D EA 15 MIN APPLICATI 27431 M[facility] WALLACE ON 5 [facility] MODALITY INC INC 1/> AREAS HOT/COLD PACKS CREATININ 25073 MAD[facility] WALLACE E BLOOD 5 [facility] INC INC APPLICATI 05381 MAD[facility] WALLACE ON 5 [facility] MODALITY INC INC 1/> AREAS HOT/COLD PACKS APPL 08511 MAD[facility] WALLACE MODALITY 5 [facility] 1/> AREAS INC INC ULTRASOUN D EA 15 MIN APPL 19944 MAD[facility] WALLACE MODALITY 5 [facility] 1/> AREAS INC INC ELEC STIMJ UNATTENDE D PHYSICAL 67456 MADISON WALLACE THERAPY 5 [facility] EVALUATIO INC INC N COMPUTER- 28155 [facility] AIDED 5 MEDICAL LA DETECTION IMAGING ASS SCREENING MAMMOGRAP HY SCREENING G0202 [place] EUGENIO 5 MEDICAL LA MAMMOGRAP IMAGING HY NIESHA ASS INCL CAD WHEN PERFORMD RADEX 88358 [place] EUGENIO SPINE 5 MEDICAL LA LUMBOSACR IMAGING AL ASS MINIMUM 4 VIEWS TYMPANOME 72602 JAI ARRIAGA TRY 4 TU RAIMUNDO DISTORT 07557 JAI ARRIAGA PRODUCT 4 TU RAIMUNDO EVOKED OTOACOUST IC EMISNS LIMITD COMPRE 20014 JAI ARRIAGA AUDIOMETR 4 TU RAIMUNDO Y THRESHOLD EVAL SP RECOGNIJ DEBRIDEME 90095 JAI VERGARA NT 4 MASTOIDEC LILI CAVITY SIMPLE O2 CONC 1 E1390 G[facility] GOULDS DEL PORT 4 DISCOUNT DISCOUNT 85%/>02 MEDICAL MEDICAL CONC AT [facility] FLW RATE PORTABLE K0738 GOULDS GOULDS GASEOUS 4 DISCOUNT DISCOUNT O2 SYS MEDICAL MEDICAL RENTAL; HOME COMPRESSO R PORTABLE K0738 GOUL[facility] GOU[facility]DS GASEOUS 4 DISCOUNT DISCOUNT O2 SYS MEDICAL MEDICAL RENTAL; HOME COMPRESSO R O2 CONC 1 E1390 GOULDS GOULDS DEL PORT 4 DISCOUNT DISCOUNT 85%/>02 MEDICAL MEDICAL CONC AT [facility] FLW RATE ECG 28025 [facility] ROUTINE 4 HEART SOLEDAD ECG SPECIALIS W/LEAST TS, 12 LDS I&R ONLY MONITOR 00121 WYATT Espinosa ID& 4 LATERALIZ ATION SEIZURE FOCUS EEG ELECTROEN 19580 WYATT Espinosa CEPHALOGR 4 AM W/REC AWAKE&ASL EEP LEVEL III 75778 CHIPPS VINCENT SURG 4 [facility] GROSS&HENRRY ROSCOPIC EXAM DECALCIFI 54275 CHIPPS VINCENT CATION 4 [facility]OMAS PROCEDURE DUBILI SBSQ 09663 [facility] 4 YUR YUR CARE/DAY 35 MINUTES ARTL 49947 KARLY BRANDT CATHJ/CAN 4 ANAHI ANAHI NULJ MNTR/WEBER SFUSION SPX PRQ TEAEC 53591 WILBERT VIRK W/PATCH 4 CARDIOTHO ROHAN GRF RACIC CAROTID SURGI VERTB SUBCLAV NECK INC ANESTHESI 19666 SAUMYAKAYLI BRANDT A MAJOR 4 ANAHI ANAHI VESSELS NECK NOS RADIOLOGI 00847 DUSTY MONTANO C EXAM 4 SHANNON SHANNON CHEST 2 VIEWS FRONTAL&L ATERAL ECG 59888 [place] ARMENDARIZ ROUTINE 4 HEART SOLEDAD ECG SPECIALIS W/LEAST TS, 12 LDS I&[place] [address] MELODY DIGGS OLIVER ADA ANGIOGRAP 4 HY NECK W/CONTRAS T/NONCONT RAST PRQ 14874 ARMENDARIZ ARMENDARIZ TRLUML 4 SOLEDAD [facility] CORONARY STENT W/ANGIO ONE ART/BRNCH CATH PLMT 06312 ARMENDARIZ ARMENDARIZ L HRT & 4 SOLEDAD SOLEDAD ARTS W/NJX & ANGIO IMG S&I RADIOLOGI 10405 CHARIS CHARIS C EXAM 4 ANAHI ANAHI KNEE COMPLETE 4/MORE VIEWS DUPLEX 59685 MOOSE VIRK SCAN 4 ROHAN ROHAN EXTRACRAN IAL ART COMPL BI STUDY INJECTION J3301 [place] LATTERMAN 4 MEDICAL N CHR TRIAMCINO SERV LONE FOUNDATIO ACETONIDE N NOS 10 MG ARTHROCEN 19199 [place] LATTER[place] TESIS 4 MEDICAL N CHR ASPIR&/IN SERV J MAJOR FOUNDATIO JT/BURSA N W/O US ARTHROCEN 53472 [place] LATTER[place] TESIS 4 MEDICAL N CHR ASPIR&/IN SERV J INTERM FOUNDATIO JT/BURS N W/O US RADEX 52135 [facility] ANKLE [address] [facility] MINIMUM 3 VIEWS DRUG SCR G0434 ADRIEL HAM ADRIEL HAM NOT 4 CHROMATOG RAPHIC; ANY NUMBER PT ENC COMPREHEN 41119 [facility] WALLACE SIVE 3 [facility] METABOLIC INC INC PANEL LIPID 54927 M[facility] WALLACE PANEL 3 [facility] INC INC SCREENING G0202 [facility] WALLACE 3 [facility] MAMMOGRAP INC INC HY NIESHA INCL CAD WHEN PERFORMD COMPUTER- 29316 MAD[facility] WALLACE AIDED 3 [facility] DETECTION INC INC SCREENING MAMMOGRAP HY CYTP C/V 43157 PICKLESIM PICKLESIM AUTO THIN 3 ER JR DARIUSZ ER JR DARIUSZ LYR PREPJ SCR MNL RESCR PHYS BLOOD 89623 ELIZABETH HUMPHREYENCE OCCULT 3 AUDRA AUDRA PEROXIDAS E ACTV QUAL FECES 1 DETER URNLS DIP 97651 ELIZABETH HUMPHREYENCE 3 AUDRA AUDRA STICK/TAB LET RGNT NON-AUTO W/O MICRSCP DUPLEX 65529 M[facility] WALLACE SCAN 3 [facility] EXTRACRAN INC INC IAL ART COMPL BI STUDY MYOCARDIA 47435 EUGENIO EUGENIO L SPECT 3 LA LA SINGLE STUDY AT REST OR STRESS CV STRS 37112 [facility] TST 3 PHYSICIAN PHYSICIAN XERS&/OR S GROUP S GROUP RX CONT ECG W/O I&R RADIOLOGI 14368 EUGENIO EUGENIO C 3 LA LA EXAMINATI ON CHEST SINGLE VIEW FRONTAL ANES 41513 [facility] LOWER 3 ANESTH INTESTINE OF THE BLUE ENDOSCOPY DISTAL DUODENUM COLONOSCO 76166 MADISON WALLACE PY FLX DX 3 [facility] W/COLLJ INC INC SPEC WHEN [facility] 06898 [facility] DIS[facility]GE 3 ANN DAY MANAGEMEN T 30 MIN/< SBSQ 10725 [facility] 3 JR SOLEDAD WALDRON SOLEDAD CARE/DAY 25 MINUTES INITIAL 13322 SCHULSTAD SCHULSTAD INPATIENT 3 LUDWIN LUDWIN CONSULT NEW/ESTAB PT 40 MIN SBSQ 73818 [facility] 3 JR SOLEDAD ROWE CARE/DAY 25 MINUTES SBSQ 60949 [facility] 3 JR SOLEDAD ROWE CARE/[place] [address] [place] [address] EUGENIO EUGENIO ABDOMEN & 3 LA LA PELVIS W/CONTRAS T MATERIAL INITIAL 29124 [facility] 3 JR SOLEDAD ROWE CARE/DAY 50 MINUTES LUMB L0627 DENNIS DENNIS ORTHOSIS 2 HOME HOME SAGIT MEDICAL MEDICAL CNTRL EQUIPME EQUIPME RIGID A&P PANEL PREFAB RADEX 03138 [facility] EUGENIO SPINE 2 MEDICAL LA LUMBOSACR IMAGING AL ASS MINIMUM [address] [facility] EXAM 2 MEDICAL LA CHEST 2 IMAGING VIEWS ASS FRONTAL&L ATERAL RADIOLOGI 08516 MAD[facility] WALLACE C 2 [facility] EXAMINATI INC INC ON KNEE 3 VIEWS URNLS DIP 46659 MCKEMIE MCKEMIE 2 JR SOLEDAD JR SOLEDAD STICK/TAB LET RGNT NON-AUTO W/O MICRSCP RADEX 40154 [facility] WALLACE UPPER GI 2 [facility] W/WO INC INC GLUCAGON/ DEL[place] [address] [facility] EUGENIO TRACT 2 MEDICAL LA UPPER IMAGING W/WO ASS DELAY[place] IM[place] W/[place] [address] [facility] ABDOMINAL 2 MEDICAL LA REAL IMAGING TIME ASS W/IMAGE DOCUMENTA TION DUPLEX 05354 M[facility] WALLACE SCAN 2 [facility] EXTRACRAN INC INC IAL ART COMPL BI STUDY SCREENING G0202 [facility] WALLACE 2 [facility] MAMMOGRAP INC INC HY NIESHA INCL CAD WHEN PERFORMD - 25310 MAD[facility] WALLACE AIDED 2 [facility] DETECTION INC INC SCREENING MAMMOGRAP HY LIPID 53287 [facility] WALLACE PANEL 2 [facility] INC INC BLOOD 18338 MADISON WALLACE COUNT 2 [facility] COMPLETE INC INC AUTO&AUTO DIFRNTL WBC COMPREHEN 16102 [facility] W[facility] SIVE 2 [facility] METABOLIC INC INC PANEL PHYSICAL 32212 M[facility] WALLACE THERAPY 1 [facility] EVALUATIO INC INC N DUPLEX 11214 TEMPLE IMAM MOH SCAN 1 CARDIOTHO EXTRACRAN RACIC IAL [place] [address] CHIPPS [place] SURG 1 SHIRLEY & ALEXUS PATHOLOGY DUBILIER GROSS&[place] [address] MADISON WALLACE INFUSION 1 [facility] THERAPY INC INC PROPHYLAX IS/DX EA HOUR COLSC FLX 06952 Ten ALANIS 1 ANNABELLE MASCORRO W/REMOVAL PSC LESION BY HOT BX FORCEPS ENDOSCOPI 4542 [facility]ISON WUKELY Caal 1 [facility] POLYPECTO INC INC MY OF LARGE INTESTINE SCREENING G0202 [facility] BECKER 1 MEDICAL LA MAMMOGRAP IMAGING HY NIESHA ASS INCL CAD WHEN PERFORMD COMPUTER- 87526 [facility] BECKER AIDED 1 MEDICAL LA DETECTION IMAGING ASS SCREENING MAMMOGRAP HY BLOOD 41306 M[facility] WALLACE COUNT 0 [facility] COMPLETE INC INC AUTO&AUTO DIFRNTL WBC BASIC 80676 MADISON WALLACE METABOLIC 0 [facility] PANEL INC INC CALCIUM TOTAL LEVEL III 83969 CHIPPS VINCENT SURG 0 SHIRLEY & THOMAS PATHOLOGY DUBILI GROSS&HENRRY ROSCOPIC EXAM DECALCIFI 23223 CHIPPS VINCENT CATION 0 SHIRLEY & THOMAS PROCEDURE DUBILIER ARTL 75092 [facility] BROSTER CATHJ/CAN 0 [place] THO NULJ ANESTHESI MNTR/WEBER A SFUSION SPX PRQ ANESTHESI 05713 CENTRAL BEAN CHR A MAJOR 0 [place] VESSELS ANESTHESI NECK NOS A EEG 55206 FARZANA CARD JOSS NONINTRAC 0 STEPHIE CABRERA RANIAL PSC SURGERY TEAEC 43184 TEMPLE IMAM MOH W/PATCH 0 CARDIOTHO GRF RACIC CAROTID SURGI VERTB SUBCLAV NECK INC ECG 83523 [facility] ROUTINE 0 ECG CARDIOLOG W/LEAST Y CONSULT 12 LDS I&R ONLY ANGIOGRAP 44667 [facility] HY 0 [facility] CEREBRAL BILATERAL RS&I ANGIOGRAP 10164 [facility] HY 0 [facility] CERVICAL BILATERAL RS&I SLCTV 79648 [facility] CATHJ 1ST 0 [facility] 2ND ORD HOSP HOSP THRC/BRCH /CPHLC BRNCH SLCTV 60733 [facility] CATHJ EA 0 [facility] 1ST [facility] HOSP THRC/BRCH /CPHLC BRNCH ARTERIOGR 8841 [facility] APHY OF 0 [facility] ARTERIES CREATININ 74831 [facility] E BLOOD 0 [facility] PROTHROMB 77393 [facility] IN TIME 0 [facility] COLLECTIO 47864 [facility] N VENOUS 0 [facility] [facility] DISCHARGE 0 [facility] DAY INTERNAL MANAGEMEN MED T 30 MIN/< SBSQ 88186 [facility] 0 [facility] CARE/DAY INTERNAL 25 MED MINUTES INITIAL 35867 [facility] 0 [facility] CARE/DAY INTERNAL 50 MED MINUTES RADIOLOGI 15019 [place] C EXAM 0 [facility]ICAL MARK CHEST 2 IMAGING VIEWS ASS FRONTAL&L ATERAL RADIOLOGI 78612 [place] [facility] C EXAM 0 MEDICAL MARK CHEST 2 IMAGING VIEWS ASS FRONTAL&[place] 91760 [facility] C EUGENIO JT LOWER 0 EUGENIO LA EXTREM W/O CONTRAST MATRL DUPLEX 41064 [place] [facility] SCAN 0 MEDICAL LA EXTRACRAN IMAGING IAL ART ASS COMPL BI STUDY COMPREHEN 68677 [facility] SIVE 0 [facility] [place] [address] [facility] THYROID 0 [facility] STIMULATI INC INC NG HORMONE TSH LIPID 76280 [facility] PANEL 0 [facility] INC INC BLOOD 83620 [facility] COUNT 0 [facility] COMPLETE INC INC AUTO&AUTO DIFRNTL WBC CREATINE 32643 [facility] KINASE 0 [facility] TOTAL INC INC FLUORESCE 82749 [facility] NT 0 [facility] NONNFCT INC INC AGT ANTB TITER EA ANTIBODY SCREENING 73175 [place] EUGENIO, 0 MEDICAL TAO MAMMOGRAP IMAGING HY ASSOCIATE BILATERAL S COMPUTER- 67328 GEM BECKER, AIDED 0 MEDICAL TAO DETECTION IMAGING ASSOCIATE SCREENING S MAMMOGRAP HY CREATININ 33519 [facility] E BLOOD 0 [place] [address] GEM BECKER ANGIOGRAP 0 MEDICAL TAO HY NECK IMAGING W/CONTRAS ASSOCIATE [place] [address] [facility] UREA 0 [facility] NITROGEN INC INC QUANTITAT ANUPAMA ALPHA-1-A 81493 [facility] NTITRYPSI 0 [facility] N INC INC PHENOTYPE ANTIBODY 83519 [facility] ASPERGILL 0 [facility] US INC INC ALPHA-1-A 50478 [facility] NTITRYPSI 0 [facility] N TOTAL INC INC ANTINUCLE 99113 [facility] AR 0 [facility] ANTIBODIE INC INC S JEAN-PIERRE ANTIBODY 54179 [facility] IDENTIFIC 0 [facility] ATION INC INC LEUKOCYTE ANTIBODIE S ALLERGEN 65216 [facility] SPECIFIC 0 [facility] IGG INC INC NORMA/[place] [address] [facility] THYROID 0 [facility] STIMULATI [place] [address] [facility] GAMMAGLOB 0 [facility] ULIN IGE INC INC COMPLEMEN 37344 [facility] T 0 [facility] FIXATION INC INC TESTS EACH ANTIGEN DUPLEX 01838 GEM BECKER, SCAN 0 MEDICAL TAO EXTRACRAN IMAGING IAL ART ASSOCIATE COMPL BI S STUDY C-REACTIV 83658 [facility] E PROTEIN 0 [facility] HIGH INC INC SENSITIVI TY IMMUNODIF 92143 [facility] FUSION 0 [facility] GEL INC INC DIFFUSION QUAL EA AG/ANTBDY CULTURE 84529 [facility] FNGI 9 [facility] MOLD/YEAS INC INC [place] [address] PATHOLOGY PATHOLOGY SURG 9 & & PATHOLOGY CYTOLOGY CYTOLOGY LAB LAB GROSS&HENRRY ROSCOPIC EXAM CYTP 80419 PATHOLOGY PATHOLOGY SLCTV 9 & & CELL CYTOLOGY CYTOLOGY ENHANCEME LAB LAB [place] INTER[place] XCP[place] C/[place] [address] [facility] INFUSION 9 [facility] THERAPY INC INC PROPHYLAX IS/DX EA HOUR CUL BACT 68598 [facility] XCPT 9 [facility] URINE INC INC BLOOD/STO OL AEROBIC ISOL CULTURE 10573 [facility] TUBERCLE/ 9 [facility] OTH INC INC ACID-FAST BACILLI ANY ISOL [facility] 78503 [facility] W/BRNCL 9 [facility] [place] [address] [facility] INFUSION 9 [facility] THERAPY/P INC INC ROPHYLAXI S /DX 1ST TO 1 HR SMR PRIM 14524 [facility] SRC 9 [facility] GRAM/GIEM INC INC SA STAIN BCT FUNGI/ADAMA L [facility] 38762 [place] FLOWERS INCL 9 CARDIOTHO SOLEDAD FLUOR RACIC GDNCE DX SURGI W/CELL WASHG SPX CLOSED 3324 [facility] BIOPSY OF 9 [facility] [place] [address] [facility] WUON UREA 9 [facility] NITROGEN INC INC QUANTITAT ANUPAMA DETER 39292 [facility] MALDISTRI 9 [facility] BJ OF INC INC INSPIRED GAS N WSHOT CURVE DETER 09801 [facility] DAY AIRWY 9 [facility] CLOSING [facility] SHRUTHI Moran VOL 1 PROF SERV BRTH TSTS BRNCDILAT 86790 [facility] DAY RSPSE 9 [facility] SPMTRY [facility] PRE&POST- PROF SERV BRNCDILAT ADMN FUNCTIONA 04125 [facility] Piña 9 [facility] RESIDUAL [facility] CAPACITY PROF SERV OR RESIDUAL VOLUME CT THORAX 76572 [facility] WALLACE 9 [facility] W/CONTRAS INC INC T MATERIAL 3D 84871 [facility] RENDERING 9 [facility] INC INC W/INTERP& POSTPROC DIFF WORK STATION CREATININ 71218 [facility] E BLOOD 9 [facility] INC INC CREATINE 42752 [facility] KINASE 9 [facility] TOTAL INC INC LIPID 20475 [facility] PANEL 9 [facility] INC INC COMPREHEN 29570 [facility] SIVE 9 [facility] METABOLIC INC INC PANEL RADIOLOGI 47479 [facility] BYRNE EXAM 9 MEDICAL TAO KNEE IMAGING COMPLETE ASSOCIATE 4/MORE S VIEWS RADEX 40647 [facility] BECKER, ANKLE 9 MEDICAL TAO COMPLETE IMAGING MINIMUM 3 ASSOCIATE VIEWS S RADIOLOGI 92998 [facility] C 9 [facility] EXAMINATI INC INC ON KNEE 3 VIEWS RADIOLOGI 78163 [facility] C 9 [facility] EXAMINATI INC INC ON KNEE 1/2 VIEWS RADIOLOGI 81148 [facility] C EXAM 9 [facility] BOTH INC INC KNEES STANDING ANTEROPOS T RADIOLOGI 56390 Ten ALEXANDRA EXAM 9 MEDICAL TAO CHEST 2 IMAGING VIEWS ASSOCIATE FRONTAL&L S ATERAL RADIOLOGI 43352 [facility] C EXAM 9 [facility] CHEST 2 INC INC VIEWS FRONTAL&L ATERAL IAADI 06723 [facility] INFFLUENZ 9 [facility] A A VIRUS INC INC IAADI 63931 [facility] INFLUENZA 9 [facility] B VIRUS INC INC COMPUTER- 08718 [place] LORE, AIDED 9 MEDICAL HARMAN P DETECTION IMAGING ASSOCIATE SCREENING S MAMMOGRAP HY SCREENING 11254 [place] LORE 9 MEDICAL HARMAN P MAMMOGRAP IMAGING HY ASSOCIATE BILATERAL S CT PELVIS 96025 [facility], 8 MEDICAL HARMAN P W/CONTRAS IMAGING T ASSOCIATE MATERIAL S 3D 70766 [facility] RENDERING 8 [facility] INC INC W/INTERP& [place] [address] [facility] TORREZ, ABDOMEN 8 MEDICAL HARMAN P W/CONTRAS IMAGING [place] [address] [facility] UREA 8 [facility] NITROGEN INC INC QUANTITAT ANUPAMA CREATININ 14261 [facility] Tovar BLOOD 8 [facility] INC INC GASTRIC 79701 KENTBARBIY EUGENIO, EMPTYING 8 MEDICAL TAO IMAGING [place] [address] [facility] AMYLASE 8 [facility] INC INC COMPREHEN 91686 [facility] SIVE 8 [facility] METABOLIC INC INC PANEL BLOOD 54249 [facility] COUNT 8 [facility] COMPLETE INC INC AUTO&AUTO DIFRNTL WBC RADEX ABD 35578 [facility] COMPL 8 [facility] AQT ABD INC INC W/S/E/D [place] [address] [facility] LIPASE 8 [facility] INC INC WRIST L3908 [facility] HAND 8 BRACE BRACE ORTHOSIS PROSTH PROSTH EXT INC INC CONTROL COCK-UP PREFAB LUMB L0627 [facility] ORTHOSIS 8 BRACE BRACE SAGIT PROSTH PROSTH CNTRL INC INC RIGID A&[place] [address] [facility] THER 8 [facility] PROPH/DX INC [place] 1ST >1 [place] [address] PATHOLOGY PATHOLOGY SURG 8 & & PATHOLOGY CYTOLOGY CYTOLOGY LAB LAB GROSS&HENRRY ROSCOPIC EXAM EGD 53848 DIEGO JEFFERY, TRANSORAL 8 [facility] BIOPSY SERV SINGLE/MU FOUNDATIO LTIPLE SPECIAL 04012 PATHOLOGY PATHOLOGY STAIN 8 & & GROUP 1 CYTOLOGY CYTOLOGY MICROORGA LAB LAB NISMS I&R SPCL STN 00349 PATHOLOGY PATHOLOGY 2 I&R 8 & & EXCPT CYTOLOGY CYTOLOGY MICROORG/ LAB LAB ENZYME/IM CYT CUL 83508 [facility] PRSMPTV 8 [facility] PTHGNC INC INC ORGANISMS SCR DNS CHART ESOPHAGOG 4516 [facility] WUON ASTRODUOD 8 [facility] ENOSCOPY INC INC WITH CLOSED BIOPSY US SOFT 02448 [facility] TISSUE 8 [facility] HEAD & INC INC NECK REAL TIME IMGE DOCM APPL 01466 [facility] MODALITY 8 [facility] 1/> AREAS INC INC VASOPNEUM ATIC DEVICES APPL 25735 [facility] MODALITY 8 [facility] 1/> AREAS INC INC ELEC STIMJ UNATTENDE D THERAPEUT 00071 [facility] IC PX 1/> 8 [facility] AREAS INC INC EACH 15 MIN EXERCISES PHYSICAL 48107 [facility] THERAPY 8 [facility] [place] [address] [facility] 1/> AREAS 8 [facility] EACH 15 INC INC MIN NEUROMUSC REEDUCA CYTP 33723 AMERIPATH MONY, CERV/VAG 8 [place] INC FRANCISCO JAVIER E AUTO THIN LAYER PREP MNL SCREEN COMPREHEN 72785 [facility] SIVE 8 [facility] [address] [facility] THYROID 8 [facility] STIMULATI INC INC NG HORMONE TSH BLOOD 69154 [facility] COUNT 8 [facility] COMPLETE INC INC AUTO&AUTO DIFRNTL WBC LIPID 05476 [facility] PANEL 8 [facility] INC INC Encounters Encounter Start End Date Code Location Performer Type Date OFFICE 70563 MIMI TOPETE 7 7 [place] T VISIT ORTHOPAED 15 IC MINUTES OFFICE 70668 [place] HALI OUTPATIEN 7 7 [place] T VISIT INTERNAL 15 MED MINUTES [facility] - 7 7 [facility] OUTPATIEN INC T OFFICE 30531 [facility] NICHOLSONEN 7 7 [facility] T VISIT INC 10 MINUTES OFFICE 21430 ANITA TOPETE 7 7 MD ROSA, T VISIT PSC 15 MINUTES [facility]OSP[facility] - 7 7 [facility] OUTPATIEN INC [facility] - 7 7 [facility] OUTPATIEN INC OFFICE 12039 ANITA LEE OUTPATIEN 7 7 MD ROSA, T VISIT PSC 10 MINUTES [facility]OSP[facility] - 7 7 [facility]EN [facility] - 7 7 [facility]PATIEN [facility] - 7 7 [facility] OUTPATIEN [facility] OFFICE 25611 [facility] OUTPATIEN 7 7 [facility] T VISIT 5 INC MINUTES HOSPITAL [facility] - 7 7 [facility] OUTPATIEN [facility] OFFICE 40672 ANITA GILLESPIE OUTPATIEN 7 7 MD ROSA, T VISIT [facility] 15 MINUTES HOSPITAL [facility] - 7 7 [facility] OUTPATIEN [facility] - 7 7 [facility]PATI[facility] - 7 7 [facility] - 6 6 [facility] OUTPATIEN [facility] EMERGENCY 87391 [facility] DEPT 6 6 [facility] VISIT INC HIGH SEVERITY& THREAT [facility] OFFICE 88806 [place] MANDUJANO MIS OUTPATIEN 6 6 [facility] VISIT INTERNAL 25 MED MINUTES OFFICE 92209 [place] BESSON OUTPATIEN 6 6 [facility] T VISIT INTERNAL 15 MED MINUTES EMERGENCY 19246 DULCE SALCEDO 6 6 PHYSICIAN [facility] S, [facility] T VISIT HIGH/URGE NT SEVERITY [facility]OSPITAL [facility] - 6 6 [facility] OUTPATIEN [facility] EMERGENCY 51509 [facility] 6 6 MEM [facility] T VISIT LOW/MODER SEVERITY OFFICE 33978 [facility] 6 PHYSICIAN TU T VISIT S GROUP 15 MINUTES OFFICE 09843 [place] BESSON OUTPATIEN 6 6 [facility] T VISIT INTERNAL 25 MED MINUTES OFFICE 56236 [facility] CALLY OUTPATIEN 6 6 N T VISIT NEUROLOGY 10 MINUTES OFFICE 54962 [facility] CALLY CONSULTAT 6 6 N ION NEUROLOGY NEW/ESTAB PATIENT 60 MIN HOSPITAL [facility] - 6 6 [facility]P T OFFICE 68712 [place] BESSON OUTPATIEN 5 5 [facility] T VISIT INTERNAL 25 MED MINUTES EMERGENCY 27452 [facility] DEPT 5 5 EMERGENCY GREG VISIT PHYS PSC HIGH SEVERITY& THREAT FUNCJ EMERGENCY 72621 [facility] 5 5 [facility] DEPARTMEN INC T VISIT LOW/MODER SEVERITY [facility]OSPITAL [facility] - 5 5 [facility] OUTPATIEN INC T EMERGENCY 18299 [facility] DEPT 5 5 PHYSICIAN HENRRY VISIT S, PLLC HIGH SEVERITY& THREAT FUNCJ OFFICE 99107 [place] BESSON OUTPATIEN 5 5 [place] ANN T VISIT INTERNAL 15 MED MINUTES HOSPITAL [facility] - 5 5 [facility] INPATIENT INC EMERGENCY 64789 [facility] DEPT 5 5 PHYSICIAN HENRRY VISIT S, PLLC HIGH SEVERITY& THREAT FUNCJ OFFICE 54174 [place] BESSON OUTPATIEN 5 5 [place] ANN T VISIT INTERNAL 15 MED MINUTES EMERGENCY 24482 [facility] 5 5 PHYSICIAN HENRRY DEPARTMEN S, PLLC T VISIT HIGH/URGE NT SEVERITY [facility]OSPITAL [facility] - 5 5 [facility] OUTPATIEN INC T OFFICE 29914 [place] BESSON OUTPATIEN 5 5 [place] ANN T VISIT INTERNAL 15 MED MINUTES OFFICE 57968 SHAMIKA LEE BUX ANJ OUTPATIEN 5 5 MD T NEW 30 MINUTES EMERGENCY 42694 DULCE AVELAR DEPT 5 5 PHYSICIAN LUEVANO VISIT S, [facility] HIGH SEVERITY& THREAT [facility] - 5 5 HOSPITAL OUTPATIEN T OFFICE 35443 [facility] FALL[facility] CONS[facility] 5 5 [facility] ION MEDICAL NEW/ESTAB G PATIENT 60 MIN OFFICE 20347 [facility] HCOLO TOD OUTPATIEN 5 5 PHYSICIAN T VISIT S GROUP 15 MINUTES HOSPITAL [facility] - 5 5 [facility] OUTPATIEN INC T OFFICE 88312 [facility] LO[facility] TRA OUTPATIEN 5 5 [place] T VISIT ORTHOPAED 15 [facility] - 5 5 [facility] OUTPATIEN INC T OFFICE 10372 [facility] CHOLO TOD CONSULTAT 5 5 PHYSICIAN ION S GROUP NEW/ESTAB PATIENT 60 MIN OFFICE 10842 [place] BESSON OUTPATIEN 5 5 [facility] T VISIT INTERNAL 15 MED MINUTES OFFICE 70985 [facility] LO[facility] TRA OUTPATIEN 5 5 [place] T VISIT ORTHOPAED 15 [facility] - 5 5 [facility] OUTPATIEN INC [facility] - 5 5 [facility] - 5 5 [facility] OUTPATIEN INC T OFFICE 01465 [facility] CAMERON OUTPATIEN 5 5 [facility] 20 [facility] - 5 5 [facility] OUTPATIEN INC T OFFICE 48622 [facility] LOZADA TRA CONSULTAT 5 5 [place] ION ORTHOPAED NEW/ESTAB [facility]CS PLC PATIENT 60 MIN OFFICE 57301 [place] BESSON OUTPATIEN 5 5 [facility] T [facility]ISIT INTERNAL [facility] - 5 5 [facility] OUTPATIEN INC T OFFICE 62045 JAI VERGARA OUTPATIEN 4 4 T NEW 30 MINUTES OFFICE 99584 BETITO LAL OUTPATIEN 4 4 [facility] T VISIT INTERNAL 25 MED MINUTES OFFICE 08360 MOOSE VIRK OUTPATIEN 4 4 ROHAN ROHAN T VISIT 25 MINUTES OFFICE 32255 DIEGO WEBB OUTPATIEN 4 4 MEDICAL N CHR T VISIT SERV 15 FOUNDATIO MINUTES N OFFICE 56736 UNIVERSIT OUTPATIEN 4 4 Y T VISIT 5 HOSPITAL MINUTES HOSPITAL UNIVERSIT - 4 4 Y OUTPATIEN HOSPITAL T OFFICE 28093 JUSTICE RENDON CONSULTAT 4 4 ANN ANN ION NEW/ESTAB PATIENT 40 MIN OFFICE 64223 PETTEY PETTEY OUTPATIEN 4 4 JAM JAM T NEW 30 MINUTES OFFICE 27637 ADRIEL HAM ADRIEL HAM OUTPATIEN 4 4 T NEW 45 MINUTES OFFICE 25190 BESSON BESSON OUTPATIEN 4 4 ANN ANN T VISIT 15 MINUTES OFFICE 73889 ELIZABETH JOHNSON OUTPATIEN 4 4 AUDRA AUDRA T VISIT 15 MINUTES HOSPITAL [facility] - 3 3 [facility] OUTPATIEN INC T PERIODIC 92561 ELIZABETH ELIZABETH PREVENTIV 3 3 AUDRA AUDRA E MED EST PATIENT 40-64YRS OFFICE 63130 ADIS ADIS OUTPATIEN 3 3 JR LA LA T VISIT 15 MINUTES HOSPITAL [facility] - 3 3 [facility] OUTPATIEN INC T OFFICE 87120 MCKEMIE MCKEMIE OUTPATIEN 3 3 JR ROWE JR SOLEDAD T VISIT 15 MINUTES OFFICE 34472 MCKEMIE MCKEMIE OUTPATIEN 3 3 JR SOLEDAD JR SOLEDAD T VISIT 15 MINUTES EMERGENCY 55843 O'RACHELLE O'RACHELLE DEPT 3 3 CLAIRE CLAIRE VISIT HIGH SEVERITY& THREAT FUNCJ OFFICE 29268 MCKEMIE MCKEMIE OUTPATIEN 3 3 JR SOLEDAD ROWE T VISIT 15 MINUTES EMERGENCY 87684 [facility] 3 3 [facility] DEPARTMEN INC T VISIT LOW/MODER SEVERITY EMERGENCY 27719 DENISSE DENISSE 3 3 HENRRY HENRRY DEPARTMEN T VISIT MODERATE SEVERITY [facility]PITAL [facility] - 3 3 [facility] OUTPATIEN INC T [facility] - 3 3 [facility] OUTPATIEN INC T EMERGENCY 93129 SUSHIL EUBANKS DEPT 3 3 EMERGENCY VISIT SERVICES HIGH SEVERITY& THREAT FUNCJ OFFICE 98365 MCKEMIE MCKEMIE OUTPATIEN 2 2 JR SOLEDAD ROWE T VISIT 15 MINUTES EMERGENCY 03715 SUSHIL EUBANKS 2 2 EMERGENCY DEPARTMEN SERVICES T VISIT HIGH/URGE NT SEVERITY [facility]OSPITAL [facility] - 2 2 [facility] OUTPATIEN INC T OFFICE 11707 MCKEMIE MCKEMIE OUTPATIEN 2 2 JR SOLEDAD ROWE T VISIT 15 MINUTES OFFICE 88633 MCKEMIE MCKEMIE OUTPATIEN 2 2 JR SOLEDAD ROWE T VISIT 10 MINUTES HOSPITAL [facility] - 2 2 [facility] OUTPATIEN INC T OFFICE 61072 MERANG VALERIA WHANG VALERIA OUTPATIEN 2 2 T VISIT 10 MINUTES HOSPITAL [facility] - 2 2 [facility] OUTPATIEN INC T [facility] - 2 2 [facility] OUTPATIEN INC T OFFICE 34153 MCKEMIE MCKEMIE OUTPATIEN 2 2 JR SOLEDAD ROWE T VISIT 15 MINUTES OFFICE 38599 MCKEMIE MCKEMIE OUTPATIEN 2 2 JR SOLEDAD ROWE T VISIT 15 MINUTES HOSPITAL [facility] - 2 2 [facility] OUTPATIEN INC T OFFICE 25608 MCKEMIE MCKEMIE OUTPATIEN 2 2 JR SOLEDAD ROWE T VISIT 15 MINUTES HOSPITAL [facility] - 1 1 [facility] OUTPATIEN INC T OFFICE 35414 [place] MCKEMIE OUTPATIEN 1 1 YAHAIRA ROWE T VISIT INTERNAL 15 MED MINUTES OFFICE 59833 C TYLER ALANIS OUTPATIEN 1 1 ANNABELLE Espinosa VISIT [facility] 10 MINUTES OFFICE 07715 [facility] IMAM MOH OUTPATIEN 1 1 CARDIOTHO T VISIT RACIC 10 [facility] - 1 1 [facility] OUTPATIEN INC T OFFICE 54080 C TYLER ALANIS CONSULTAT 1 1 ANNABELLE MORSE MD [facility] NEW/ESTAB PATIENT 60 MIN OFFICE 88330 [place] MCKEMIE OUTPATIEN 1 1 YAHAIRA ROWE T VISIT INTERNAL 15 MED MINUTES HOSPITAL [facility] - 1 1 [facility] OUTPATIEN INC T OFFICE 74906 [place] BESSON OUTPATIEN 0 0 YAHAIRA JUAREZ T VISIT INTERNAL 15 MED MINUTES [facility]OSPITAL [facility] - 0 0 [facility] OUTPATIEN INC T EMERGENCY 28022 SUSHIL SALCEDO DEPT 0 0 EMERGENCY HENRRY VISIT SERVICES HIGH SEVERITY& THREAT FUN EMERGENCY 57930 [facility] 0 0 [facility] DEPARTMEN INC T VISIT MODERATE SEVERITY OFFICE 45890 [facility] IMAM MOH OUTPATIEN 0 0 CARDIOTHO T VISIT RACIC 10 SURGI [facility] C[facility]TRAL - 0 0 [facility] OUTPATIEN HOSP T OFFICE 85314 [facility] IMAM MOH OUTPATIEN 0 0 CARDIOTHO T VISIT RACIC 10 SURGI MINUTES EMERGENCY 35642 SUSHIL LEAL 0 [address] [facility] SERVICES T VISIT HIGH/URGE NT SEVERITY OFFICE 14774 [facility] PETTEY CONSULTAT 0 0 PHYSICIAN KERWIN MCKEON NEW/ESTAB PATIENT 60 MIN OFFICE 54586 [place] BESSON OUTPATIEN 0 0 [facility] T VISIT INTERNAL 15 [facility] - 0 0 [facility] OUTPATIEN [facility] - 0 0 [facility] OUTPATIEN INC T OFFICE 37541 [place] BESSON OUTPATIEN 0 0 [facility] T VISIT INTERNAL 25 [facility] - 0 0 [facility] OUTPATIEN [facility] - [address] [facility] T OFFICE 37022 [place] FLOWERS OUTPATIEN 0 0 CARDIOTHO SOLEDAD T VISIT RAC 10 [facility] OFF[facility] 57061 [place] MCKEMIE OUTPATIEN 0 0 [facility], T VISIT INTERNAL SHRUTHI F 15 [facility] - 0 0 [facility] OUTPATIEN [facility] - 0 0 [facility] OUTPATIEN INC T OFFICE 01842 [place] FLOWERS OUTPATIEN 9 9 CARDIOTHO SOLEDAD T VISIT RACIC 10 [facility] - 9 9 [facility] OUTPATIEN INC T OFFICE 83078 FLOWERS, FLOWERS, OUTPATIEN 9 9 LAILA Francis T VISIT 10 [facility] - 9 9 [facility] OUTPATIEN INC T OFFICE 29976 LIONEL FLOWERS, CONSULTAT 9 9 LAILA Francis ION NEW/ESTAB PATIENT 40 MIN OFFICE 47834 [place] MCKEMIE OUTPATIEN 9 9 YAHAIRA WALDRON, T VISIT INTERNAL SHRUTHI F 15 MED MINUTES OFFICE 07846 [place] MCKEMIE OUTPATIEN 9 9 YAHAIRA WALDRON, T VISIT INTERNAL SHRUTHI F 15 MED MINUTES [facility] - 9 9 [facility] OUTPATIEN INC T [facility] - 9 9 [facility] OUTPATIEN INC T OFFICE 25390 YOGI BASS 9 9 AMBER Russell ION SERV NEW/ESTAB FOUNDATIO PATIENT 40 MIN EMERGENCY 48397 [facility] 9 9 [facility] DEPARTMEN INC T VISIT MODERATE SEVERITY [facility] - 9 9 [facility] OUTPATIEN INC T EMERGENCY 92191 KEVIN SALCEDO, 9 9 [facility] T VISIT ON HIGH/URGE NT SEVERITY [facility] - 9 9 [facility] OUTPATIEN INC T OFFICE 26707 [place] YOSELYN SZYMANSKI 9 9 YAHAIRA NOLAND VISIT INTERNAL 15 MED MINUTES OFFICE 76589 [place] JUDYE OUTPATIEN 8 8 YAHAIRA WALDRON Jesús VISIT INTERNAL SHRUTHI F 15 MED MINUTES OFFICE 99080 YOSELYN FARRIS 8 8 [facility] T VISIT SERV 15 FOUNDATIO MINUTES [facility]OSPITAL [facility] - 8 8 [facility] OUTPATIEN INC T [facility] - 8 8 [facility] OUTPATIEN INC T OFFICE 05577 YOSELYN FARRIS 8 8 MEDICAL SANTH[facility] T VISIT SERV 25 FOUNDATIO MINUTES HOSPITAL [facility] - 8 8 [facility] OUTPATIEN INC T OFFICE 23225 YOGI FARRIS 8 8 MED[facility] SANTHOS[facility] ION SERV NEW/ESTAB FOUNDATIO PATIENT 60 MIN [facility] - 8 8 [facility] OUTPATIEN INC T EMERGENCY 10494 [facility] 8 8 [facility] DEPARTMEN INC T VISIT MODERATE SEVERITY OFFICE 86561 YOSELYN FARRIS 8 8 [facility] T VISIT SERV 15 FOUNDATIO MINUTES HOSPITAL [facility] - 8 8 [facility] OUTPATIEN INC T OFFICE 67848 YOGI FARRIS 8 8 MEDICAL [facility] ION SERV NEW/ESTAB FOUNDATIO PATIENT 60 MIN OFFICE 20989 [facility] BARB OUTPATIEN 8 8 Jesús SYED JR VISIT INTERNAL SHRUTHI F 15 MED MINUTES [facility]OSP[facility] - 8 8 [facility] OUTPATIEN INC T [facility] - 8 8 [facility] OUTPATIEN INC T OFFICE 07970 [place] YOSELYN SZYMANSKI 8 8 [place] LUDIN T VISIT INTERNAL 25 MED MINUTES [facility] 70169 [employer], PREVENTIV 8 8 [facility] EST CLINIC OF PATIENT 40-64YRS SIDRA [facility] OFFICE 44298 [place] BARB OUTPATIEN 8 8 Jesús SYED JR VISIT INTERNAL SHRUTHI F 15 MED MINUTES [facility]OSPITAL [facility] - 8 8 [facility] OUTPATIEN INC T OFFICE 96162 [place] YOSELYN SZYMANSKI 8 8 YAHAIRA NOLAND T VISIT INTERNAL 15 MED MINUTES OFFICE 31724 [place] YOSELYN SZYMANSKI 8 8 YAHAIRA NOLAND T VISIT INTERNAL 25 MED MINUTES
--- OUTSIDE RECORDS SUMMARY | 2017-08-22 00:38 | External Medical Summary Rpt ---
Author Author GINOSPEEDY Harris, [employer] Organization [employer] Address Unknown Phone Unavailable Results CBC W Auto Differential panel in Blood Observa Value Referen Units Interpr Notes Date tion ce etation Range Basophils 0 - 0.2 K/MM3 Normal No Aug 16 inform2016 [#/volume on in 10:30 PM ] in source Blood by data Automated count Basophils 0.1 - 2.0 % Normal No Aug 16 inform2016 leukocyte on in 10:30 PM s in source Blood by data Automated count Eosinophi 0.0 - 0.4 K/mm3 Normal No Aug 16 ls inform2016 [#/volume on in 10:30 PM ] in source Blood by data Automated count Eosinophi 0.1 - % Normal No Aug 16 ls/100 12.0 inform2016 leukocyte on in 10:30 PM s in source Blood by data Automated count Granulocy 1.8 - 7.8 K/mm3 Normal No Aug 16 jovi 2016 [#/volume on in 10:30 PM ] in source Blood by data Automated count Granulocy 37.0 - % Normal No Aug 16 jovi/100 80.0 inform2016 leukocyte on in 10:30 PM s in source Blood by data Automated count Hematocri 37.0 - % Normal No Aug 16 t [Volume 47.0 ati 2016 on in 10:30 PM Fraction] source of Blood data Hemoglobi 12.2 - g/dL Normal No Aug 16 n 16.2 2016 [Mass/vol on in 10:30 PM ume] in source Blood data Lymphocyt 0.7 - 4.5 K/mm3 Normal No Aug 16 es inform2016 [#/volume on in 10:30 PM ] in source Unspecifi data ed specimen by Automated count Lymphocyt 10 - 50.0 % Normal No Aug 16 es inform2016 [#/volume on in 10:30 PM ] in source Unspecifi data ed specimen by Automated count Erythrocy 27 - 31.2 pg High No Aug 16 te mean inform2016 corpuscul on in 10:30 PM ar source hemoglobi data n [Entitic mass] Erythrocy 31.8 - g/dl Normal No Aug 16 te mean 35.4 2016 corpuscul on in 10:30 PM ar source hemoglobi data n concentra tion [Mass/vol ume] by Automated count Erythrocy 82.2 - fl High No Aug 16 te mean 97.8 inform2016 corpuscul on in 10:30 PM ar volume source [Entitic data volume] by Automated count Monocytes 0.1 - 1.0 K/mm3 Normal No Aug 16 inform2016 [#/volume on in 10:30 PM ] in source Blood by data Automated count Monocytes 1.7 - 9.3 % Normal No Aug 16 /100 2016 leukocyte on in 10:30 PM s in source Blood by data Automated count Platelet 7.4 - fl Normal No Aug 16 mean 10.4 inform2016 volume on in 10:30 PM [Entitic source volume] data in Blood by Automated count Platelets 142 - 424 K/mm3 Normal No Aug 16 inform2016 [#/volume on in 10:30 PM ] in source Blood data Erythrocy 4.2 - 5.4 M/mm3 Normal No Aug 16 jovi inform2016 [#/volume on in 10:30 PM ] in source Amniotic data fluid Erythrocy 11.5 - % Normal No Aug 16 te 17.5 2016 distribut on in 10:30 PM ion width source [Entitic data volume] by Automated count Leukocyte 4.8 - K/MM3 Normal No Aug 16 s 10.8 inform2016 [#/volume on in 10:30 PM ] in source Blood data
--- OUTSIDE RECORDS SUMMARY | 2017-08-22 00:38 | External Medical Summary Rpt | CCD ---
Demographics Preferred Language German Marital Status Unknown Ep[employer]opalian Affiliation Unknown Race Unknown Ethnic Group Unknown Author Author , JARROD GARAY Address Unknown Phone Immunization No patient found.
--- OUTSIDE RECORDS SUMMARY | 2017-08-22 00:38 | External Medical Summary Rpt | CCD ---
Demographics Preferred Language Danish Marital Status Unknown Sikhism Affiliation Unknown Race Unknown Ethnic Group Unknown Author Author , JARROD GARAY Address Unknown Phone Immunization No patient found.
== END 2017-08-17 14:15 | disposition home or self-care (01) ==
LOC: ER 22:08 → 2ND 23:17
PROVIDERS: Emergency Medicine; Internal Medicine
PROC: B2111ZZ Fluoroscopy of Multiple Coronary Arteries using Low Osmolar Contrast (ICD-10-PCS; 2017-08-17)
PROC: B2151ZZ Fluoroscopy of Left Heart using Low Osmolar Contrast (ICD-10-PCS; 2017-08-17)
PROC: 4A023N7 Measurement of Cardiac Sampling and Pressure, Left Heart, Percutaneous Approach (ICD-10-PCS; principal; 2017-08-17 09:45)
DX: I25.10 Atherosclerotic heart disease of native coronary artery without angina pectoris (principal); R07.9 Chest pain, unspecified; Z72.0 Tobacco use; I10 Essential (primary) hypertension; Z95.5 Presence of coronary angioplasty implant and graft; J44.9 Chronic obstructive pulmonary disease, unspecified
CPT/HCPCS: C1725; C1769; G0378; J1644; Q9967

== ENCOUNTER → 2017-10-09 | Outpatient (CLI) | payer MEDICAID ==
[~2017-10-09] MED LIST changes: +ACETAMINOPHEN500 M3 PO; +IMDUR 30MG. TAB30 MG PO; +LOSARTAN POTASS25 MG PO; +VENTOLIN H0.09 MG/AC IH
--- NOTE | 2017-10-15 13:14 | RADIOLOGY REPORT PS360 ---
DIG MAMM-SCREEN NIESHA W/CAD ORDERING PHYSICIAN : Kendrick Vera MD PATIENT AGE: 62 years GENDER: Female COMPARISON: November 2014, March 2011, August 2016 HISTORY: No hormones no new complaints Family history. Cousin with breast cancer age 50 TECHNIQUE: Std CC & MLO images were obtained. R2 CAD reviewed. FINDINGS: Moderate fibroglandular elements bilaterally both breast with mild asymmetry. Similar pattern is seen on previous studies dating back to 2014. No significant new areas of concern either breast. Bilateral follow-up in one year adequate RIGHT BREAST: Stable moderate density LEFT BREAST: No new areas of concern. Stable Benign dense calcification upper outer quadrant IMPRESSION: Negative, Stable bilateral mammogram. No new areas concern BI-RADS CATEGORY: 1_Negative RECOMMENDED FOLLOWUP: 12M 12 MONTH FOLLOW-UP (A letter has been sent to the patient regarding results of the study.)
== END ==
LOC: RAD 10-06 16:30
DX: Z12.31 Encounter for screening mammogram for malignant neoplasm of breast (principal)
CPT/HCPCS: G0202